=== PATIENT | male | born 1945 | race Caucasian/White ===

== ENCOUNTER 2024-05-14 10:00 | Outpatient (CLI) | payer MEDICARE, SELFPAY ==
[2024-05-14 10:46] LABS: Basophils Absolute Auto 0.01 K/mm3 (0.00-0.10); Basophils Percent Auto 0.2 % (0.0-1.0); Eosinophils Percent Auto 4.7 % (1.0-6.0); Hemoglobin 11.7 g/dL (12.4-15.3); Immature Granulocyte Absolute 0.02 K/mm3 (0.00-0.00); Immature Granulocyte Percent A 0.5 % (0.0-0.0); Immature Platelet Fraction Pct 4.2 % (1.0-7.0); Lymphocytes Absolute Auto 1.09 K/mm3 (1.10-4.50); Lymphocytes Percent Auto 25.8 % (18.0-42.0); Mean Corpuscular HGB Conc 34.4 g/dL (32-36); Mean Corpuscular Hemoglobin 31.5 pg (27.0-31.0); Mean Corpuscular Volume 91.4 fL (78.0-102.0); Mean Platelet Volume 10.4 fl (8.7-11.0); Monocytes Absolute Auto 0.59 K/mm3 (0.10-0.90); Monocytes Percent Auto 13.9 % (2.0-11.0); Neutrophils Absolute Auto 2.32 K/mm3 (1.70-7.20); Neutrophils Percent Auto 54.9 % (50.0-70.0); Platelet Count Result 75 K/mm3 (150-420); Red Blood Count 3.72 M/mm3 (4.70-6.10); Reticulocyte Hemoglobin Conten 34.9 pg (28.0-35.0); Reticulocyte Percent 1.54 % (0.50-1.50); Reticulocytes Absolute 0.06 M/mm3 (0.02-0.10); White Blood Count 4.2 K/mm3 (4.8-10.8)
[2024-05-14 10:59] LABS: Partial Thromboplastin Time 28.2 Sec (23.9-30.70)
[2024-05-14 11:25] LABS: Alanine Aminotransferase 59 U/L (16-63); Albumin Level 2.8 g/dL (3.4-5.0); Alkaline Phosphatase 126 U/L (46-116); Anion Gap 5 mmol/L (4-12); Aspartate Amino Transferase 52 U/L (15-37); Blood Urea Nitrogen 16 mg/dL (7-18); Calcium 8.5 mg/dL (8.5-10.1); Carbon Dioxide 34 mmol/L (21-32); Chloride 98 mmol/L (98-108); Estimated Glomerular Filt Rate > 60; Ferritin 89 ng/mL (26-388); Folic Acid 16.6 ng/mL (8.6->20); Glucose 192 mg/dL (70-99); Iron 70 ug/dL (65-175); Lactate Dehydrogenase 140 U/L (85-227); Osmolality Calculated 290 mOsm/kg (285-295); Percent Iron Saturation 26 % (12-57); Potassium 2.8 mmol/L (3.5-5.1); Prostate Specific Antigen < 0.1 ng/mL (< OR = 4.0); Sodium 137 mmol/L (136-145); Total Protein 6.6 g/dL (6.4-8.2); Vitamin B12 > 2000 pg/mL (193-986)
[2024-05-15 07:48] LABS: Fibrinogen 299 mg/dL (175-425)
[2024-05-16 12:08] LABS: Immunoglobulin A 481 mg/dL (70-320); Immunoglobulin G 1679 mg/dL (600-1540); Immunoglobulin M 114 mg/dL (50-300)
[2024-05-16 14:28] LABS: Erythropoietin (EPO) 27.5 mIU/mL (2.6-18.5)
[2024-05-16 16:09] LABS: Beta-2-Microglobulin 3.65 mg/L (< OR = 2.51)
[2024-05-17 02:59] LABS: Protein, Total 6.1 g/dL (6.1-8.1)
[2024-05-19 12:03] LABS: Albumin 2.8 g/dL (3.8-4.8); Alpha 1 Globulin 0.2 g/dL (0.2-0.3); Alpha 2 Globulin 0.6 g/dL (0.5-0.9); Beta 1 Globulin 0.4 g/dL (0.4-0.6); Gamma Globulin 1.6 g/dL (0.8-1.7)
[2024-05-20 14:09] LABS: Immunofixation, Serum Normal pattern.
== END 2024-05-14 10:01 | disposition home or self-care (01) ==
LOC: CHSLAB 10:08
PROVIDERS: PCP Hospitalist; Visit Provider Internal Medicine Hematology
DX: D61.818 Other pancytopenia (principal); E11.9 Type 2 diabetes mellitus without complications; I10 Essential (primary) hypertension; D69.6 Thrombocytopenia, unspecified; Z85.46 Personal history of malignant neoplasm of prostate
CPT/HCPCS: 36415; 80053; 82232; 82525; 82607; 82668; 82728; 82746; 82784; 83540; 83550; 83615; 83883; 84153; 84155; 84165; 84630; 85025; 85046; 85055; 85384; 85610; 85730; 86334

== ENCOUNTER 2024-07-02 00:48 | Day surgery (SDC) | payer MEDICARE, SELFPAY ==
[2024-07-01 13:23] VITALS: BMI 37.3
--- NOTE | ~2024-07-02 | BM_ITS ---
EXAMINATION: CCL bone marrow asp w bx diag DATE: 07/02/2024 09:37 INDICATION: Pancytopenia. TECHNIQUE: A time-out was performed to verify the patient's name, date of , and procedure to b e performed. The procedure including the risks, benefits, and alternatives was discussed with the pat ient. Risks discussed included bleeding and infection. The patient understood the risks and agreed to proceed. The skin overlying the left ilium was prepped and draped in usual sterile fashion. Anesth etic was administered with 1% lidocaine subcutaneously. 50 mcg fentanyl IV was given for pain control . An 11 gauge needle was inserted into the ilium with fluoroscopic guidance. Bone marrow was aspirat ed. An 8 gauge needle was then inserted into the ilium with fluoroscopic guidance. A core bone marrow biopsy was obtained. There were no immediate complications. Fluoroscopy exposure time was 0.1 minute s. The total number of images was 163. FINDINGS: Real-time fluoroscopy demonstrates a marker overlying the left posterior superior iliac spi ne. IMPRESSION: 1. Fluoro-guided bone marrow aspiration. 2. Fluoro-guided bone marrow core biopsy. Reviewed, dictated and finalized at location A.
[2024-07-02 07:30] VITALS: BP 128/66; PULSE 80; RESP 13; TEMP 36.4; O2SAT 100; BMI 37.3
[2024-07-02 08:03] LABS: Basophils Percent Auto 0.2 % (0.2-1.2); Eosinophils Absolute Auto 0.2 K/mm3 (0-0.3); Eosinophils Percent Auto 4.5 % (0-4.4); Hematocrit 37.6 % (42.0-52.0); Immature Granulocyte Absolute 0.01 K/mm3 (0.00-0.031); Immature Granulocyte Percent A 0.2 % (0-0.5); Immature Platelet Fraction Pct 5.3 % (0.9-11.2); Lymphocytes Absolute Auto 1.41 K/mm3 (0.9-3.2); Lymphocytes Percent Auto 30.1 % (18.3-44.2); Mean Corpuscular HGB Conc 34.6 g/dl (32-36); Mean Corpuscular Volume 92.6 fl (80-100); Mean Platelet Volume 11.7 fl (7.4-10.4); Monocytes Absolute Auto 0.7 K/mm3 (0.1-0.6); Monocytes Percent Auto 14.5 % (2.6-8.5); Neutrophils Absolute Auto 2.4 K/mm3 (1.3-6.7); Neutrophils Percent Auto 50.5 % (45.5-73.1); Platelet Count Result 89 k/mm3 (150-375); Red Blood Count 4.06 M/mm3 (4.6-6.20); Red Cell Distribution Width 16.2 % (11.5-14.5); White Blood Count 4.7 K/mm3 (4.5-10.0)
[2024-07-02 08:15] LABS: INR 1.1; Prothrombin Time 14.7 Seconds (11.1-14.7)
--- NOTE | 2024-07-02 08:55 | WPDMODSED ---
Moderate Sedation Note-Pt Data Patient Data Diagnosis: Pancytopenia. Present Complaint: Pancytopenia. Procedure to be performed/Plan: Fluoro-guided bone marrow biopsy of ilium. Allergies Allergy/AdvReac Type Severity Reaction Status Date / Time Contrast Media AdvReac Unknown Nausea and Uncoded 07/01/24 13:44 Vomiting Home Medications Medication Instructions Recorded Confirmed Type aspirin 81 mg tablet 81 mg PO DAILY 07/01/24 07/01/24 History atorvastatin 40 mg tablet 40 mg PO 07/01/24 History carvedilol 6.25 mg tablet 6.25 mg PO BID 07/01/24 07/01/24 History chlorthalidone 50 mg tablet 50 mg PO DAILY 07/01/24 07/01/24 History dulaglutide 1.5 mg/0.5 mL 1.5 mg subcut WEEKLY 07/01/24 07/01/24 History subcutaneous pen injector (Trulicity) furosemide 40 mg tablet 40 mg PO DAILY 07/01/24 07/01/24 History isosorbide mononitrate 60 mg 60 mg PO DAILY 07/01/24 07/01/24 History tablet,extended release 24 hr mecobalamin (vitamin B12) 500 mcg 500 mcg PO DAILY 07/01/24 07/01/24 History chewable tablet metformin 500 mg tablet 2,000 mg PO HS 07/01/24 07/01/24 History oxybutynin chloride 5 mg tablet 5 mg PO BID 07/01/24 07/01/24 History potassium chloride 20 mEq 20 meq PO DAILY 07/01/24 07/01/24 History tablet,extended release(part/cryst) Sedation/Anesthesia: No previous sedation/anesthesia problems (including family history). [facility] Past Medical History Medical History (Updated 07/02/24 @ 08:57 by Steven Frazier MD) Myocardial infarction Social History Social History Smoking status: Never smoker Second hand tobacco smoke exposure: Yes Alcohol intake: former Alcohol use details: none since 2009 Substance use: never Living arrangements: with family Spiritual care concerns: No Mod Sed Physical Exam Physical Exam Pre Procedural Exam: Normal: Lungs, Heart Rate, Heart Rhythm and Abdomen and Variation: Appearance (Scalp surgical change.) Hours since solid foods: 11 Hours since liquid intake: 11 Mallampati Classification: class II Internal Medicine - PN: Obj Da Vital Signs Vital Signs: Vital Signs - 24 hr 07/02/24 07:30 Temperature 36.4 C Pulse Rate 80 Respiratory Rate 13 Blood Pressure 128/66 Pulse Oximetry 100 Oxygen Delivery Room Air Intake/Output Intake/Output: Intake & Output 06/29/24 06/30/24 07/01/24 07/02/24 23:59 23:59 23:59 23:59 Intake Total 0 Output Total 0 Balance 0 Labs 07/02/24 07:54 Labs: Laboratory Results - last 24 hr 07/02/24 07:54 WBC 4.7 RBC 4.06 L Hgb 13.0 L Hct 37.6 L MCV 92.6 MCH 32.0 MCHC 34.6 RDW 16.2 H Plt Count 89 L MPV 11.7 H Immature Gran % (Auto) 0.2 Neut % (Auto) 50.5 Lymph % (Auto) 30.1 [place] % (Auto) 14.5 H Eos % (Auto) 4.5 H Baso % (Auto) 0.2 Lymph # (Auto) 1.41 [place] # (Auto) 0.7 H Eos # (Auto) 0.2 Baso # (Auto) 0.0 Abs Immat Gran (auto) 0.01 Absolute Neuts (auto) 2.4 Absolute Nucleated RBC 0.000 Nucleated RBC % 0.0 % Immature Plt Fraction 5.3 PT 14.7 INR 1.1 ASA Classification/Sedation ASA Classification/Sedation ASA Class: II Emergent: No Risks: Risks, benefits and alternatives explained and patient/family accepted plan for sedation. Patient re-evaluated immediately prior to sedation.
[2024-07-02 09:35] VITALS: BP 135/65; PULSE 80; RESP 12; TEMP 37.1; O2SAT 100
[2024-07-02 09:45] VITALS: BP 140/70; PULSE 80; RESP 18; O2SAT 100
[2024-07-02 10:00] VITALS: BP 109/75; PULSE 78; RESP 21; O2SAT 100
[2024-07-02 10:15] VITALS: BP 110/64; PULSE 78; RESP 16; O2SAT 100
[2024-07-02 10:30] VITALS: BP 123/55; PULSE 72; RESP 24; O2SAT 100
== END 2024-07-02 10:45 | disposition home or self-care (01) ==
PROVIDERS: Radiology Diagnostic Radiology; PCP Hospitalist; Referring Provider Internal Medicine Hematology; Visit Provider Radiology Diagnostic Radiology
DX: D61.818 Other pancytopenia (principal); D69.6 Thrombocytopenia, unspecified; D64.9 Anemia, unspecified; D75.89 Other specified diseases of blood and blood-forming organs; I25.2 Old myocardial infarction; Z79.82 Long term (current) use of aspirin; Z79.85 Long-term (current) use of injectable non-insulin antidiabetic drugs; Z79.84 Long term (current) use of oral hypoglycemic drugs
CPT/HCPCS: 36415; 38222; 85025; 85055; 85610; 88305; 88311; 88313; J1642; J3010

== ENCOUNTER 2024-09-17 10:11 | Outpatient (CLI) | payer MEDICARE, SELFPAY ==
[2024-09-17 10:28] LABS: Hematocrit 32.9 % (37.0-46.0); Hemoglobin 11.5 g/dL (12.4-15.3); Immature Platelet Fraction Pct 3.8 % (1.0-7.0); Mean Corpuscular Hemoglobin 31.5 pg (27.0-31.0); Mean Corpuscular Volume 90.1 fL (78.0-102.0); Mean Platelet Volume 10.9 fl (8.7-11.0); Platelet Count Result 78 K/mm3 (150-420); Red Blood Count 3.65 M/mm3 (4.70-6.10); Red Cell Distribution Width 15.8 % (11.6-14.4); White Blood Count 3.3 K/mm3 (4.8-10.8)
[2024-09-17 11:00] LABS: Band Neutrophils Percent 0 % (0-6); Basophils Absolute Manual 0.06 K/mm3 (0-0.1); Basophils Percent Manual 2 % (0-1); Eosinophils Absolute Manual 0.06 K/mm3 (0.02-0.50); Eosinophils Percent Manual 2 % (1-6); Lymphocytes Absolute Manual 1.41 K/mm3 (1.1-4.5); Lymphocytes Percent Manual 43 % (18-44); Monocytes Absolute Manual 0.36 K/mm3 (0.1-0.90); Monocytes Percent Manual 11 % (3-9); Neutrophils Absolute Manual 1.38 K/mm3 (1.3-6.7); Neutrophils Percent Manual 42 % (46-73); Total Cells Counted 100
[2024-09-17 11:01] LABS: Platelet Estimate Decreased (Adequate)
== END 2024-09-17 10:12 | disposition home or self-care (01) ==
PROVIDERS: PCP Hospitalist; Visit Provider Internal Medicine Hematology
DX: D61.818 Other pancytopenia (principal)
CPT/HCPCS: 36415; 85025; 85055

== ENCOUNTER 2025-05-25 12:07 | Emergency (ER) | payer MEDICARE, BC, SELFPAY ==
[2025-05-25] VITALS (34 sets, daily range): BP systolic 101–135; BP diastolic 50–70; PULSE 67–79; RESP 12–20; TEMP 36.6; O2SAT 95–100
--- NOTE | 2025-05-25 | CONSULT_PTH ---
PATIENT: Clyde Gibson [facility][id number] AGE/SX: 79/M ROOM: RE05/25/[address]: Fausto Zimmerman MD : 1945 BED: DIS: 05/25/2025 SPEC #: [id number] RECD: 05/25/25 13:24 STATUS: MARILYN REQ #: [id number] NIK: 05/25/25 00:[address]: Fausto Zimmerman DEPT: [facility] Consult RECD BY: Jeanine Kuhn MLT, ([facility]) Tissues: A - Peripheral Smear Procedures: Hematology Consult
--- NOTE | ~2025-05-25 | CT_ITS ---
CT brain wo con Ordering provider: Fausto Zimmerman MD History: 79 years Male with . TIA . Comparison: None. Technique: CT of the head without contrast. Radiation reduction technique utilized. The dose-length product was 832.33 mGy-cm. FINDINGS: BRAIN PARENCHYMA AND CSF SPACES: Moderate leukoaraiosis and diffuse cortical atrophy. Moderate athero matous disease. Widening of the spaces around the brain is seen in the frontal parietal area which ma y indicate CSF hygroma. No midline shift, mass effect or hemorrhage. The brain parenchyma and CSF sp aces are otherwise normal. VISUALIZED PARANASAL SINUSES: Well aerated. MASTOIDS: Well aerated. BONES: The bones appear intact. SOFT TISSUES: Visualized nasopharynx is normal. Superficial soft tissues are normal. IMPRESSION: No acute intracranial findings. Reviewed, dictated and finalized at location A.
--- NOTE | ~2025-05-25 | XR_ITS ---
XR chest 1V portable Ordering provider: Fausto Zimmerman MD History: 79 years Male with . dizziness . Comparison: None. FINDINGS: MEDIASTINUM: The cardiac silhouette is not enlarged. Right bipolar pacemaker. LUNGS: No infiltrates, effusions or pneumothorax. OTHER: No free air under the diaphragm. IMPRESSION: No acute cardiopulmonary pathology. Reviewed, dictated and finalized at location A.
--- OUTSIDE RECORDS SUMMARY | 2025-05-25 12:09 | XMS_ITS | Encounter Summary ---
Author Organization [facility] Address [address] [place] [address] Care Team Providers Care Precision Machine Operator Name Role Phone Hakan Mccormick MD Primary Care Provider [phone] Encounter Details Date Type Department Care Team (Late st Contact Info) Description 12/31/2019 Lab Requisition [facility] DermPath Lab [address] [facility] [place] [id number] Remedios Hancock MD [address] [facility] 3 [place] [address] Social History Tobacco Use Types Packs/Day Years Used Date Smoking Tobacco: Never Smokeless Tobacco: Never Alcohol Use Standard Drinks/Week Comments No 0 (1 standard drink = 0.6 oz pur e alcohol) Sex and Gender Information Value Date Recorded Sex Assigned at Not on file Legal Sex Male 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 PM 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 Gender Identity Not on file Sexual Orientation Not on file documented as of this encounter Plan of Treatment Not on file documented as of this encounter Procedures Procedure Name Priority Date/Time Associated Diagnosis Comments DERMATOPATHOLOGY Routine 12/30/2019 12:0 0 AM STEAM TRAP MAN documented in this encounter Results * DERMATOPATHOLOGY (12/30/2019 12:00 AM STEAM TRAP MAN) Case Report Dermatopathology Report Case: [id number] Authorizing Provider: Remedios Hancock MD Collected: 12/30/2019 12:00 AM Ordering Location: [facility] DermPath Lab Received: 12/31/2019 12:13 PM Pathologist: Matthew Damon MD Specimen: Skin, right forearm 0 3:57 PM [facility] DERMATOPATHOLOGY LABORATORY Final Diagnosis Specimen A. 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 0 3:57 PM [facility] DERMATOPATHOLOGY LABORATORY Gross Description Specimen A: Received is one formalin filled container labeled with the patient's name and designated right forearm. The specimen consists of a non-oriented ellipse of skin measuring 62u03n6 mm. The epidermal surface is unremarkable. The margin is inked green. The 12 o'clock and 6 o'clock tips are submitted in cassette 1. The remainder of the ellipse is serially sectioned and submitted in cassette 2-4. Jar 0. 0 3:57 PM [facility] DERMATOPATHOLOGY LABORATORY Microscopic Description Specimen A. SKIN, right forearm: There is a cellular, dermal based tumor comprised of spindle, oval, and polygonal cells with pleomorphic and polymorphic nuclei. Multinucleated giant cells and mitotic figures are present. This lesion is not present at the margin of the specimen. There are fibroblasts and collagen bundles oriented parallel to the skin surface with elongated blood vessels, some of which are oriented perpendicular to the skin surface. 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 0 3:57 PM [facility] DERMATOPATHOLOGY LABORATORY Disclaimer An external and internal positive and negative controls are appropriate for the histochemical, immunohistochemical and immunofluorescence stain(s) in this case (if any), except where stated explicitly. The performance characteristics of the stain(s) cited in this report were developed and its performance characteristic determined by the Dermatopathology Laboratory at [facility], directed by Dr. Bridget Damon. These tests need not be, and therefore are not, approved by the [place] Food and Drug Administration. The tests are used for clinical purposes. Billing Codes Specimen Charges Stain Charges 26415 1 0 3:57 PM STEAM TRAP MAN DERMATOPATHOLOGY LABORATORY Embedded Images 0 3:57 PM STEAM TRAP MAN DERMATOPATHOLOGY LABORATORY Pathology/Cytolog y TISSUE SPECIMEN FROM SKIN / Unknown 12/30/2019 12/31/2019 12:13 PM STEAM TRAP MAN Remedios Hancock MD LAB - PATHOLOGY/CYTOLOGY OR DERABLES Final Result DERMATOPATHOLOGY LABORATORY [facility] - Department of Dermatology [address] [place] [address], 5th Floor Lab [address] [phone] documented in this encounter Visit Diagnoses Not on filedocumented in this encounter Care Teams Precision Machine Operator Relationship Specialty Start Date End Date Hakan Mccormick MD PCP - General 04/24/11 documented as of this encounter
--- OUTSIDE RECORDS SUMMARY | 2025-05-25 12:09 | XMS_ITS | Encounter Summary ---
Author Organization [facility] Address [address] [facility] [address] Care Team Providers Care Special Effects Makeup Artist Name Role Phone Hakan Mccormick MD Primary Care Provider [phone] Encounter Details Date Type Department Care Team (Late st Contact Info) Description 10/19/2020 Lab Requisition [facility] DermPath Lab [address] [facility] [place] [phone] Gabriela Saunders MD [address] [facility] 3 [place] [address] Social History Tobacco Use Types Packs/Day Years Used Date Smoking Tobacco: Never Smokeless Tobacco: Never Alcohol Use Standard Drinks/Week Comments No 0 (1 standard drink = 0.6 oz pur e alcohol) Sex and Gender Information Value Date Recorded Sex Assigned at Not on file 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 Gender Identity Not on file Sexual Orientation Not on file documented as of this encounter Plan of Treatment Not on file documented as of this encounter Procedures Procedure Name Priority Date/Time Associated Diagnosis Comments DERMATOPATHOLOGY Routine 10/18/2020 12:0 0 AM GLASS MELT OPERATOR documented in this encounter Results * DERMATOPATHOLOGY (10/18/2020 12:00 AM GLASS MELT OPERATOR) Case Report Dermatopathology Report Case: [id number] Authorizing Provider: Gabriela Saunders MD Collected: 10/18/2020 12:00 AM Ordering Location: [facility] DermPath Lab Received: 10/19/2020 09:09 AM Pathologist: Barbara Ford MD Specimens: A) - Skin, right jawline B) - Skin, left FA C) - Skin, left corner of mouth 0 12:23 PM [facility] DERMATOPATHOLOGY LABORATORY Final Diagnosis Specimen A. 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 SKIN, left FA: BASAL CELL CARCINOMA, NODULAR TYPE (C44.619) Specimen C. SKIN, left corner of mouth: BASAL CELL CARCINOMA, NODULAR TYPE (C44.319) 0 12:23 PM [facility] DERMATOPATHOLOGY LABORATORY at 1223 GLASS MELT OPERATOR Clinical History A: R/O SCC. B: BCC vs SCC. C: R/O BCC. 0 12:23 PM [facility] DERMATOPATHOLOGY LABORATORY Gross Description Specimen A: Received is one formalin filled container labeled with the patient's name and designated right jawline. The specimen consists of a shave biopsy measuring [id number]. Jar 0. Specimen B: Received is one formalin filled container labeled with the patient's name and designated left FA. The specimen consists of a shave biopsy measuring [id number]. Jar 0. Specimen C: Received is one formalin filled container labeled with the patient's name and designated left corner of mouth. The specimen consists of a shave biopsy measuring [id number]. Jar 0. 0 12:23 PM [facility] DERMATOPATHOLOGY LABORATORY Microscopic Description Specimen A. SKIN, right jawline: Arising in the epidermis and extending into the dermis there are irregularly shaped aggregates of keratinocytes showing evidence of premature cornification. Specimen B. SKIN, left FA: Within the dermis there are aggregates of basaloid cells with a high nuclear to cytoplasmic ratio and peripheral palisading. Specimen C. SKIN, left corner of mouth: Within the dermis there are aggregates of basaloid cells with a high nuclear to cytoplasmic ratio and peripheral palisading. 0 12:23 PM [facility] DERMATOPATHOLOGY LABORATORY Disclaimer An external and internal positive and negative controls are appropriate for the histochemical, immunohistochemical and immunofluorescence stain(s) in this case (if any), except where stated explicitly. The performance characteristics of the stain(s) cited in this report were developed and its performance characteristic determined by the Dermatopathology Laboratory at [facility], directed by Dr. Bridget Damon. These tests need not be, and therefore are not, approved by the [place] Food and Drug Administration. The tests are used for clinical purposes. Billing Codes Specimen Charges Stain Charges 55955 74076 28037 1 1 1 0 12:23 PM GLASS MELT OPERATOR DERMATOPATHOLOGY LABORATORY Embedded Images 0 12:23 PM GLASS MELT OPERATOR DERMATOPATHOLOGY LABORATORY Pathology/Cytology TISSUE SPECIMEN FROM SKIN / Unknown 10/18/2020 10/19/2020 9:09 AM GLASS MELT OPERATOR Miscellaneous samples (specimen) TISSUE SPECIMEN FROM SKIN / Unknown 10/18/2020 10/19/2020 9:09 AM GLASS MELT OPERATOR Miscellaneous samples (specimen) TISSUE SPECIMEN FROM SKIN / Unknown 10/18/2020 10/19/2020 9:09 AM GLASS MELT OPERATOR Gabriela Saunders MD LAB - PATHOLOGY/CYTOLOGY ORD ERABLES Final Result DERMATOPATHOLOGY LABORATORY [facility] - Department of Dermatology [facility] [address] [place] [address], [address] [phone] documented in this encounter Visit Diagnoses Not on filedocumented in this encounter Care Teams Special Effects Makeup Artist Relationship Specialty Start Date End Date Hakan Mccormick MD PCP - General 04/24/11 documented as of this encounter
--- OUTSIDE RECORDS SUMMARY | 2025-05-25 12:10 | XMS_ITS | Encounter Summary ---
Author Organization [facility] Address [address] [facility] [place] [address] Care Team Providers Care Application Security Specialist Name Role Phone Hakan Mccormick MD Primary Care Provider [phone] Encounter Details Date Type Department Care Team (Late st Contact Info) Description 08/16/2023 Lab Requisition [facility] - DermPath Lab [address] [facility] [place] [address] Gabriela Saunders MD [address] [facility] 3 [place] [address] Social History Tobacco Use Types Packs/Day Years Used Date Smoking Tobacco: Never Smokeless Tobacco: Never Alcohol Use Standard Drinks/Week Comments No 0 (1 standard drink = 0.6 oz pur e alcohol) Sex and Gender Information Value Date Recorded Sex Assigned at Not on file 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 Gender Identity Not on file Sexual Orientation Not on file documented as of this encounter Plan of Treatment Not on file documented as of this encounter Procedures Procedure Name Priority Date/Time Associated Diagnosis Comments DERMATOPATHOLOGY Routine 08/16/2023 3:33 AM CDT documented in this encounter Results * DERMATOPATHOLOGY (08/16/2023 3:33 AM CDT) Case Report Dermatopathology Report Case: [id number] Authorizing Provider: Gabriela Saunders MD Collected: 08/16/2023 03:33 AM Ordering Location: [facility] DermPath Lab Received: 08/20/2023 09:29 AM Pathologist: Lili Ellsworth MD Specimen: Skin, right med FA 3 6:07 PM T DERMATOPATHOLOGY LABORATORY Final Diagnosis Specimen A. 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 The 12 to 6 o'clock margin is inked green. The 6 o'clock to 12 o'clock margin is inked black. The 12 o'clock tip is submitted in cassette 1. The 6 o'clock tip is submitted in cassette 2. The remainder of the ellipse is serially sectioned and submitted in cassettes 3 - 4. Jar 0. 6:07 PM [facility] DERMATOPATHOLOGY LABORATORY Microscopic Description Specimen A. SKIN, right med FA: Sections show a focal cup-shaped lesion with central hyperkeratosis with elements of parakeratosis. The epithelial cells making up the goodwin of the cup show abundant eosinophilic cytoplasm. There is immaturity of the keratinocytes in the outermost layers of this epithelium. This lesion is not present at the margin of the specimen. There are fibroblasts and collagen bundles oriented parallel to the skin surface with elongated blood vessels, some of which are oriented perpendicular to the skin surface. 6:07 PM T DERMATOPATHOLOGY LABORATORY Disclaimer An external and internal positive and negative controls are appropriate for the histochemical, immunohistochemical and immunofluorescence stain(s) in this case (if any), except where stated explicitly. The performance characteristics of the stain(s) cited in this report were developed and its performance characteristic determined by the Dermatopathology Laboratory at [facility], directed by Dr. Bridget Damon. These tests need not be, and therefore are not, approved by the [place] Food and Drug Administration. The tests are used for clinical purposes. Billing Codes Specimen Charges Stain Charges 34773 1 3 6:07 PM CDT DERMATOPATHOLOGY LABORATORY Embedded Images 3 6:07 PM CDT DERMATOPATHOLOGY LABORATORY Pathology/Cytolo gy TISSUE SPECIMEN FROM SKIN / Unknown 08/16/2023 3:33 AM CDT 08/20/2023 9:29 AM CDT us Gabriela Saunders MD LAB - PATHOLOGY/CYTOLOGY ORD ERABLES Final Result DERMATOPATHOLOGY LABORATORY [facility] - Department of Dermatology [facility] Medicine [address] [place] [address], [address]rd Floor [address] [phone] documented in this encounter Visit Diagnoses Not on filedocumented in this encounter Care Teams Application Security Specialist Relationship Specialty Start Date End Date Hakan Mccormick MD PCP - General 04/24/11 documented as of this encounter
--- OUTSIDE RECORDS SUMMARY | 2025-05-25 12:10 | XMS_ITS | Clinical Summary ---
Author Organization [facility] Address [address] [place] [address] Care Team Providers Care Mineral Engineer Name Role Phone Hakan Mccormick MD Primary Care Provider [phone] Source Comments [facility],non-owned Affiliates and Associated Physician Practices is amultiple site organization consisting of ambulatory clinics and hospital sitesin [place], [place], [place] and [place]. This disclosure is being madepursuant to the Care Everywhere program and may not contain all information available regarding this patient. Last updated 18.[facility] Allergies Active Allergy Reactions Criticality Noted Date Comments Contrast-Iodinated Agents For Ct/Other Nausea and/or Vomiting,Other High 05/01/2011 Vomiting and chest pain, Vomiting and chest pain, Vomiting and chest pain Medications * Be aware that medications may not be up to date on this document. Alwaysverify current medications with the patient. fluorouracil (EFUDEX) 5 % cream 4 03/29/2017 Active dulaglutide (TRULICITY) 0.75 MG/0.5ML injection 03/24/2017 Active oxybutynin (DITROPAN) 5 MG tablet Take 5 mg by mouth. 04/03/2017 Active chlorthalidone (HYGROTON) 50 MG tablet Take 50 mg by mouth q48h. 04/03/2017 Active metFORMIN (GLUCOPHAGE) 500 MG tablet Take 2,000 mg by mouth. 04/03/2017 Active ALPRAZolam (XANAX) 0.25 MG tablet Take by mouth. 04/03/2017 Active Active Problems Problem Noted Date Diagnosed Date Personal history of other malignant neoplasm of skin 06/16/2011 Family History Medical History Relation Name Comments Cancer Father CVA Maternal Grandmother Allergy (Severe) Neg Hx Cancer - Skin, Melanoma Neg Hx Cancer - Skin, Non Melanoma Neg Hx Eczema Neg Hx Hemophilia Neg Hx Psoriasis Neg Hx Rashes/Skin Problems Neg Hx Relation Name Status Comments Father Maternal Grandmother Social History Tobacco Use Types Packs/Day Years Used Date Smoking Tobacco: Never Smokeless Tobacco: Never Alcohol Use Standard Drinks/Week Comments No 0 (1 standard drink = 0.6 oz pur e alcohol) Sex and Gender Information Value Date Recorded Sex Assigned at Not on file 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 Gender Identity Not on file Sexual Orientation Not on file Last Filed Vital Signs Vital Sign Reading Time Taken Comments Blood Pressure 112/68 06/19/2017 12:32 PM CDT Pulse 72 06/19/2017 12:32 PM CDT Temperature - - Respiratory Rate - - Oxygen Saturation 89% 06/19/2017 12:32 PM CDT Inhaled Oxygen Concentration - - Weight 152.9 kg (337 lb) 06/19/2017 7:19 AM CDT Height 185.4 cm (6' 1) 06/19/2017 7:19 AM CDT Body Mass Index 44.46 06/19/2017 7:19 AM CDT Plan of Treatment Health Maintenance Due Date Last Done Comments MEDICARE AWV 12 MONTHS 1945 DTAP/TDAP/TD VACCINES (1 - Tdap) 1963 PNEUMOCOCCAL VACCINE 50+ (1 of 1 - PCV) 1994 ZOSTER VACCINE (1 of 2) 1994 Respiratory Syncytial Virus (RSV) Vaccine Pt: or over 60 yrs (1 - 1-dose 75+ series) 2019 COVID-19 VACCINE ( - 2023-2 5 season) 2024 DEPRESSION SCREENING 11/12/2024 INFLUENZA VACCINE (#1) 2025 HEPATITIS B VACCINE Aged Out No longe r eligible based on patient's age to complete this topic HIB VACCINE Aged Out No longer eligi ble based on patient's age to complete this topic HPV VACCINE Aged Out No longer eligi ble based on patient's age to complete this topic MENINGOCOCCAL (Group B) VACC INE SHARED DECISION-MAKING Aged Out No longer eligibl e based on patient's age to complete this topic MENINGOCOCCAL GROUPS A/C/Y/W VACCINE Aged Out No longer eligible b ased on patient's age to complete this topic Insurance [facility] Care Teams Mineral Engineer Relationship Specialty Start Date End Date Hakan Mccormick MD PCP - General 04/24/11
--- OUTSIDE RECORDS SUMMARY | 2025-05-25 12:10 | XMS_ITS | Continuity of Care Document ---
Author Organization [facility] Address [address] [facility] damien Verdin [address] [place] [phone] Phone Care Team Providers Care Slitter Operator Name Role Phone Sandro Jones MD Unavailable [...] and evening meals 500 MG - Active isosorbide mononitrate ER 60 mg tablet,extended release 24 hr - Active carvedilol 6.25 mg tablet - Active Lipitor 20 mg tablet - Active lisinopril 10 mg tablet - Active aspirin 81 mg tablet,delayed release - Active Procedures Procedure Date No Charge [...] Diagnoses Date Provider Providers Copied on Encounter [facility], [address] [place] [address] [address], [place], [place], [address], [place] tel:[phone] SEC [place] Professional Post-Op (chief complaint) Surgery follow-up examination 7 Robert Jo. [address], [place], [place], [address], [place]. tel:[phone] [facility], [address] [place] [address] [address], [place], [place], [id number], [place] tel:[phone] [place] Laser procedure (chief complaint) Other secondary cataract, right eye 7 Robert Jo. [address], [place], [place], [address], [place]. tel:[phone] Office/outpa tient Visit, Est [facility], [address] [place] [address] [address], [place], [place], [address], [place] tel:[phone] [place] Professional evaluation (chief complaint) No Information 7 Robert Jo. [address], [place], [place], [address], [place]. tel:[phone] [facility], [address] [place] [address] [address], [place], [place], [address], [place] tel:[phone] [place] Professional No Information 7 Yudith Edwards. [address], [place], [place], [address], [place]. tel:[phone] Office/outpa tient Visit, Est [facility] [place], [address] [place] [address] [address], [place], [place], [address], [place] [phone] [place] Professional Difficulty reading (chief complaint) No Information Julia Goldsmith. [address] [facility], [address], [place], [address], [place]. tel:[phone] Referring Provider: Lien Spann, [address], [address]. tel:[phone] [facility], [address] [place] [address] [address], [place], [place], [address], [place] tel:[phone] [place] F/u exam, postop (chief complaint) No Information Wankayan Edwards. [address] [facility], [facility] [place], [address], [place]. tel:[phone] Referring Provider: Lien Spann, [address], [address]. tel:[phone] [place] [address], [address] [place] [address] [address], [place], [place], [address], [place] [phone] [place] F/u exam, postop (chief complaint) No Information 4 Yudith Edwards. [address] [facility], [address], [place], [place], [address], [place]. tel:[phone] Referring Provider: Lien Spann, [address], [address]. tel:[phone] [facility], [address] [place] [address] [address], [place], [place], [address], [place] tel:[phone] [facility] No Information 4 Julia Goldsmith. [address], [place], [address], [place]. tel:[phone] Referring Provider: Lien Spann, [address], [facility]. [phone] [facility], [address] [place] [address] [address], [place], [place], [address], tel:[phone] SEC [facility] No Information 4 Julia Goldsmith. [address], [place], [address], [place]. tel:[phone] Referring Provider: Lien Spann, [address], [facility]. tel:[phone] [facility], [address] [place] [address] [address], [place], [place], [address], [place] tel:[phone] SEC [facility] Professional F/u exam, postop (chief complaint) No Information 4 Yudith Edwards. [address] [place], [place], [address], [place]. tel:[phone] Referring Provider: Lien Spann, [address], [facility]. tel:[phone] [facility], [address] [place] [address] [address], [place], [place], [address], [place] tel:[phone] SEC [facility] Professional No Information 4 Yudith Edwards. [address] [facility] [place], [address], [place]. tel:[phone] Referring Provider: Jerry Haynes, [address] [facility] [place], [address]. tel:[phone] [facility], [address] [place], [place] [address]st [address], [place], [place], [address], [phone] [facility] [place] No Information 4 Julia Goldsmith. [address], [address], [place], [facility], . tel:[phone] Referring Provider: Lien Spann, [facility] [address], [facility]. tel:[phone] [facility], [address] [place] [address] [address], [place], [place], [address], [phone] SEC Tereso Aguiar No Information 4 Julia Goldsmith. [address] [facility], [address] [place] [address], [facility], . tel:[phone] Referring Provider: Lien Spann, [address], [facility]. tel:[phone] Office/outpa tient Visit, [facility], [address], [place], [place], [address], [phone] SEC [place] Professional No Information 4 Julia Goldsmith. [address], [address] [place] [address], [facility], . tel:[phone] Referring Provider: Lien Spann, [address], [facility]. tel:[phone] Family History Family Member Type Diagnosis Age At Onset Mother Problem (finding) diabetes melli tus in first degree relative Father Problem (finding) glaucoma Payers Payer name Insurance type Covered constitution party ID Authorpoa ticonstanza(s) No Information Social History [...] 1 month Yag Cap PO O D Follow up - 1 month Yag PC PO OS + Yag PC OD Impression/Plan - Ea rly Dry ARMD OU:- [...] PC PO OS + Yag PC OD. Other secondary brynn ract, left eye - Educational material given Related to Other secondary cataract, left eye Pseudophakia - Educa tional material given Related [...]
--- OUTSIDE RECORDS SUMMARY | 2025-05-25 12:10 | XMS_ITS | Encounter Summary ---
Author Organization [facility] Address [address] [facility] [place] [address] Care Team Providers Care Public Health Sanitarian Technician Name Role Phone Hakan Mccormick MD Primary Care Provider [phone] Encounter Details Date Type Department Care Team (Late st Contact Info) Description 03/24/2024 Lab Requisition [facility] - DermPath Lab [address] [facility], [place] [address] Gabriela Saunders MD [address] [facility] [address] [place] [address] Social History Tobacco Use Types Packs/Day Years Used Date Smoking Tobacco: Never Smokeless Tobacco: Never Alcohol Use Standard Drinks/Week Comments No 0 (1 standard drink = 0.6 oz pur e alcohol) Sex and Gender Information Value Date Recorded Sex Assigned at Not on file 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 Gender Identity Not on file Sexual Orientation Not on file documented as of this encounter Plan of Treatment Not on file documented as of this encounter Procedures Procedure Name Priority Date/Time Associated Diagnosis Comments DERMATOPATHOLOGY Routine 03/24/2024 11:5 6 AM CDT documented in this encounter Results * DERMATOPATHOLOGY (03/24/2024 11:56 AM CDT) Case Report Dermatopathology Report Case: [id number] Authorizing Provider: Gabriela Saunders MD Collected: 03/24/2024 11:56 AM Ordering Location: [facility] - Received: 03/25/2024 08:24 AM DermPath Lab Pathologist: Lili Ellsworth MD Specimens: A) - Skin, left crown B) - Skin, left crown post 4 5:15 PM CDT DERMATOPATHOLOGY LABORATORY Final Diagnosis Specimen A. 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 SKIN, left crown post: SQUAMOUS CELL CARCINOMA, ACANTHOLYTIC TYPE (C44.42) 4 5:15 PM CDT DERMATOPATHOLOGY LABORATORY at 1715 CDT Clinical History A-B: r/o SCC 4 5:15 PM CDT DERMATOPATHOLOGY LABORATORY Gross Description Specimen A: Received is one formalin filled container labeled with the patient's name and designated left crown. The specimen consists of a shave biopsy measuring 72t30b2 mm. Jar 0+. Specimen B: Received is one formalin filled container labeled with the patient's name and designated left crown post. The specimen consists of a shave biopsy measuring 90q18n7 mm. Jar 0. 4 5:15 PM CDT DERMATOPATHOLOGY LABORATORY Microscopic Description Specimen A. SKIN, left crown: The epidermis shows parakeratosis, full thickness disorderly maturation of keratinocytes, mitoses at different levels, and dyskeratotic cells. There is a column of marked compact hyperkeratosis. Specimen B. SKIN, left crown post: Sections show skin with irregularly shaped nests of keratinocytes with evidence of cornification. In some nests, there is loss of cohesion between the neoplastic cells, as well as individual dyskeratotic cells that lack intercellular bridges. 4 5:15 PM CDT DERMATOPATHOLOGY LABORATORY Disclaimer An external and internal positive and negative controls are appropriate for the histochemical, immunohistochemical and immunofluorescence stain(s) in this case (if any), except where stated explicitly. The performance characteristics of the stain(s) cited in this report were developed and its performance characteristic determined by the Dermatopathology Laboratory at [facility], directed by Dr. Bridget Damon. These tests need not be, and therefore are not, approved by the [place] Food and Drug Administration. The tests are used for clinical purposes. Billing Codes Specimen Charges Stain Charges 04356 91842 1 1 4 5:15 PM CDT DERMATOPATHOLOGY LABORATORY Embedded Images 4 5:15 PM CDT DERMATOPATHOLOGY LABORATORY Pathology/Cytology TISSUE SPECIMEN FROM SKIN / Unknown 03/24/2024 11:56 AM CDT 03/25/2024 8:24 AM CDT Miscellaneous samples (specimen) TISSUE SPECIMEN FROM SKIN / Unknown 03/24/2024 11:56 AM CDT 03/25/2024 8:24 AM CDT us Gabriela Saunders MD LAB - PATHOLOGY/CYTOLOGY ORD ERABLES Final Result DERMATOPATHOLOGY LABORATORY [facility] - Department of Dermatology [facility] Medicine [address] [place] [address], [address] [phone] documented in this encounter Visit Diagnoses Not on filedocumented in this encounter Care Teams Public Health Sanitarian Technician Relationship Specialty Start Date End Date Hakan Mccormick MD PCP - General 04/24/11 documented as of this encounter
--- OUTSIDE RECORDS SUMMARY | 2025-05-25 12:10 | XMS_ITS | Encounter Summary ---
Author Organization [facility] Address [address] [facility] [place] [address] Care Team Providers Care Care Giver Name Role Phone Hakan Mccormick MD Primary Care Provider [phone] Encounter Details Date Type Department Care Team (Late st Contact Info) Description 07/03/2024 Lab Requisition [facility] - Pathology Lab [address] [place] [address] Sae Andrews MD [address] [address] Illness, unspecified Social History Tobacco Use Types Packs/Day Years Used Date Smoking Tobacco: Never Smokeless Tobacco: Never Alcohol Use Standard Drinks/Week Comments No 0 (1 standard drink = 0.6 oz pur e alcohol) Sex and Gender Information Value Date Recorded Sex Assigned at Not on file 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 Gender Identity Not on file Sexual Orientation Not on file documented as of this encounter Plan of Treatment Not on file documented as of this encounter Procedures Procedure Name Priority Date/Time Associated Diagnosis Comments BONE MARROW BIOPSY (STL) Routine 07/02/2024 9:21 AM CDT Illness, unspecified documented in this encounter Results * BONE MARROW BIOPSY (STL) (07/02/2024 9:21 AM CDT) Case Report Bone Marrow Patholog y Report Case: [id number] Authorizing Provider: Sae Andrews Collected: 07/02/2024 09:21 AM MD Flako Ordering Location: [facility] - Received: 07/03/2024 01:16 PM Pathology Lab Pathologist: Noemi Alfonso MD Specimens: A) - Bone Marrow B) - Bone Marrow 07/03/2024 2:27 PM [facility] Final Diagnosis Bone marrow, aspirate, clot section, and core biopsy: - Normocellular marrow with maturing trilineage hematopoiesis and mild dysgranulopoiesis - Decreased storage iron - No evidence of lymphoma or high-grade myeloid neoplasm - See description Peripheral blood smear: - Normochromic, normocytic anemia - Thrombocytopenia - See description 07/03/2024 2:27 PM [facility] at 1427 CDT AP Comment Overall, the bone marrow specimen is normocellular for age with maturing trilineage hematopoiesis and no evidence of lymphoma or a high-grade myeloid neoplasm. Mild dyspoiesis is noted in the myeloid lineage. While this may be indicative of a low-grade myelodysplastic syndrome, other causes of dysplastic morphology should first be considered (e.g., drug/toxin exposures, nutritional deficiencies, infections, etc.). Correlation with clinical findings and relevant cytogenetic/molecular testing is required. 07/03/2024 2:27 PM [facility] Peripheral Smear Description CBC Data: WBC - 4.7, Hgb - 13, MCV - 92.6, MCHC - 34.6, and Platelets - 89. Manual Differential Count (100 cells): 37% neutrophils, 42% lymphocytes, 15% monocytes, and 6% eosinophils. Leukocyte number: normal. Granulocyte morphology: normal. Lymphocyte morphology: normal. Erythrocyte number: decreased. Erythrocyte morphology: normochromic/normocyt ic. Anisopoikilocytosis: not significant. Polychromasia: not significant. Platelet number: decreased. Platelet morphology: normal. 07/03/2024 2:27 PM [facility] Bone Marrow Aspirate Differential count (200 cells): 1.5% blasts, 54.5% maturing myeloid precursors, 35% erythroid progenitors, 3% eosinophils, 3% lymphocytes, and 3% plasma cells. Specimen quality: adequate. Spicules: present. Trilineage Hematopoiesis: present. Myeloid:Erythroid ratio: 1.6:1. Myeloid Maturation: Mildly dyspoietic, with a subset showing hypogranular cytoplasm. Erythroid Maturation: No overt dyspoiesis. Megakaryocyte morphology: normal nuclear lobation. Storage iron (by special stain): focal. Sideroblastic iron (by special stain): decreased. No ring sideroblasts are seen. Control is appropriately reactive. 07/03/2024 2:27 PM [facility] Bone Marrow Core Biopsy and Clot Section Description Specimen quality: The decalcified bone marrow core biopsy is adequate for evaluation. Cellularity: normocellular, ~20-30%. Trilineage Hematopoiesis: present. Myeloid to Erythroid ratio: normal. Myeloid maturation and localization: normal. Erythroid maturation and localization: normal. Megakaryocyte number: normal. Megakaryocyte distribution: normal. Lymphoid aggregates: absent. Core biopsy iron (by special stain): decreased. Clot section marrow particles: present. Clot section morphology: similar to core biopsy. Clot section iron (by special stain): decreased. 07/03/2024 2:27 PM [facility] Flow Cytometry Summary Concurrent flow cytometry ([id number]) shows no evidence of a monoclonal B-cell population or increase in blasts. 07/03/2024 2:27 PM [facility] Clinical History 79 year old man with pancytopenia. 07/03/2024 2:27 PM [facility] Materials Received Received are 19 slide and 3 blocks labeled [id number] along with a copy of the outside pathology report. [place] [address] . All original materials are returned to the referring institution, along with a copy of our final report. 07/03/2024 2:27 PM [facility] Pathologist Location at [facility] 07/03/2024 2:27 PM [facility] Disclaimer The performance characteristics of all immunohistochemical and indirect immunofluorescence stains (if any) cited in this report were determined by the Histopathology Laboratory of [facility]. Some of these tests were developed by our own laboratory and have not been cleared or approved by the [place] Food and Drug Administration. The FDA does not require this test to go through premarket FDA review. These tests are used for clinical purposes. They should not be regarded as investigational or for research. This laboratory is certified under the Clinical Laboratory Improvement Amendments (CLIA) as qualified to perform high complexity clinical laboratory testing. This case has been personally reviewed and interpreted by the attending (teaching) pathologist. 07/03/2024 2:27 PM CDT [facility] Embedded Images 07/03/2024 2:27 PM CDT [facility] Pathology/Cytology BONE MARROW SPECIMEN / Unknown 07/02/2024 9:21 AM CDT 07/03/2024 1:16 PM CDT Miscellaneous samples (specimen) BONE MARROW SPECIMEN / Unknown 07/02/2024 9:21 AM CDT 07/03/2024 1:16 PM CDT Sae Andrews MD LAB - PATHOLOGY/CYT OLOGY ORDERABLES Final Result Performing Organization Address City/State/[facility] Co de Phone Number [facility] [address] [phone] documented in this encounter Visit Diagnoses Diagnosis Illness, unspecified documented in this encounter Care Teams Care Giver Relationship Specialty Start Date End Date Hakan Mccormick MD PCP - General 04/24/11 documented as of this encounter
--- OUTSIDE RECORDS SUMMARY | 2025-05-25 12:10 | XMS_ITS | Encounter Summary ---
Author Organization [facility] Address [address] [facility] [place] [address] Care Team Providers Care Clerk Of Court Name Role Phone Hakan Mccormick MD Primary Care Provider [phone] Encounter Details Date Type Department Care Team (Late st Contact Info) Description 11/26/2019 Lab Requisition [facility] DermPath Lab [address] [facility], [place] [id number] Gabriela Saunders MD [address] [facility] 3 [place] [address] Social History Tobacco Use Types Packs/Day Years Used Date Smoking Tobacco: Never Smokeless Tobacco: Never Alcohol Use Standard Drinks/Week Comments No 0 (1 standard drink = 0.6 oz pur e alcohol) Sex and Gender Information Value Date Recorded Sex Assigned at Not on file 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 Gender Identity Not on file Sexual Orientation Not on file documented as of this encounter Plan of Treatment Not on file documented as of this encounter Procedures Procedure Name Priority Date/Time Associated Diagnosis Comments DERMATOPATHOLOGY Routine 11/26/2019 12:0 0 AM CHILD CARE CENTRE DIRECTOR documented in this encounter Results * DERMATOPATHOLOGY (11/26/2019 12:00 AM CHILD CARE CENTRE DIRECTOR) Case Report Dermatopathology Report Case: [id number] Authorizing Provider: Gabriela Saunders MD Collected: 11/26/2019 12:00 AM Ordering Location: [facility] DermPath Lab Received: 11/26/2019 02:53 PM Pathologist: Matthew Damon MD Specimens: A) - Skin, right FA B) - Skin, right FA medial C) - Skin, right lat scalp D) - Skin, crown E) - Skin, crown ant 0 7:35 PM [facility] DERMATOPATHOLOGY LABORATORY Final Diagnosis Specimen A. 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 SKIN, right FA medial: BASAL CELL CARCINOMA, NODULAR TYPE (C44.612) Specimen C. SKIN, right lat scalp: HYPERPLASTIC (HYPERTROPHIC) ACTINIC KERATOSIS; EXTENDING TO THE BASE OF THE SPECIMEN (L57.0) HEALING SKIN CHANGES (L90.5) (see microscopic description and comment) Specimen D. 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 0 7:35 PM [facility] DERMATOPATHOLOGY LABORATORY Gross Description Specimen A: Received is one formalin filled container labeled with the patient's name and designated right FA. The specimen consists of a shave measuring 68p5k4dg, bisected. Jar 0. Specimen B: Received is one formalin filled container labeled with the patient's name and designated right FA medial. The specimen consists of a shave measuring 47u7p9fz. Jar 0. Specimen C: Received is one formalin filled container labeled with the patient's name and designated right lat scalp. The specimen consists of a shave measuring 73u55l1hr. Jar 0. Specimen D: Received is one formalin filled container labeled with the patient's name and designated crown. The specimen consists of a shave measuring 04q2l0qi. Jar 0. Specimen E: Received is one formalin filled container labeled with the patient's name and designated crown ant. The specimen consists of a shave measuring 17c80r5em. Jar 0. 0 7:35 PM [facility] DERMATOPATHOLOGY LABORATORY Microscopic Description Specimen A. SKIN, right FA: There is a cellular, dermal based tumor comprised of spindle, oval, and polygonal cells with pleomorphic and polymorphic nuclei. Multinucleated giant cells and mitotic figures are present. The lesional cells are highlighted by immunostains for CD10 and CD68 and fail to highlight with immunostains for S100, desmin, king-cytokeratin, and CD31. 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 On superficial biopsy, these two neoplasms have nearly identical histopathological features with the main distinction based on extent of tumor involvement. Clinical correlation is recommended. Specimen B. SKIN, right FA medial: Within the dermis there are aggregates of basaloid cells with a high nuclear to cytoplasmic ratio and peripheral palisading. Specimen C. SKIN, right lat scalp: There is hyperkeratosis alternating with parakeratosis. There is epidermal hyperplasia with disorderly maturation of keratinocytes with nuclear pleomorphism confined to the lower half of the epidermis. This process extends to the base of the specimen. In the adjacent skin, there is epidermal hyperplasia beneath which there are vascular proliferation, fibroblasts, and an edematous stroma. COMMENT: A squamous cell carcinoma cannot be ruled out. Specimen D. SKIN, crown: Sections show skin with irregularly shaped nests of keratinocytes with evidence of cornification. In some nests, there is loss of cohesion between the neoplastic cells, as well as individual dyskeratotic cells that lack intercellular bridges. Specimen E. SKIN, crown ant: There is a column of marked compact hyperkeratosis. The epidermis shows parakeratosis, full thickness disorderly maturation of keratinocytes, mitoses at different levels, and dyskeratotic cells. 0 7:35 PM [facility] DERMATOPATHOLOGY LABORATORY Disclaimer An external and internal positive and negative controls are appropriate for the histochemical, immunohistochemical and immunofluorescence stain(s) in this case (if any), except where stated explicitly. The performance characteristics of the stain(s) cited in this report were developed and its performance characteristic determined by the Dermatopathology Laboratory at [facility], directed by Dr. Bridget Damon. These tests need not be, and therefore are not, approved by the [place] Food and Drug Administration. The tests are used for clinical purposes. Billing Codes Specimen Charges Stain Charges 80934 98992 72797 41832 49708 1 1 1 1 1 53780 23186 20270 35084 81855 39972 1 1 1 1 1 1 0 7:35 PM [facility] DERMATOPATHOLOGY LABORATORY Embedded Images 0 7:35 PM CHILD CARE CENTRE DIRECTOR DERMATOPATHOLOGY LABORATORY Pathology/Cytology TISSUE SPECIMEN FROM SKIN / Unknown 11/26/2019 11/26/2019 2:53 PM CHILD CARE CENTRE DIRECTOR Miscellaneous samples (specimen) TISSUE SPECIMEN FROM SKIN / Unknown 11/26/2019 11/26/2019 2:53 PM CHILD CARE CENTRE DIRECTOR Miscellaneous samples (specimen) TISSUE SPECIMEN FROM SKIN / Unknown 11/26/2019 11/26/2019 2:53 PM CHILD CARE CENTRE DIRECTOR Miscellaneous samples (specimen) TISSUE SPECIMEN FROM SKIN / Unknown 11/26/2019 11/26/2019 2:53 PM CHILD CARE CENTRE DIRECTOR Miscellaneous samples (specimen) TISSUE SPECIMEN FROM SKIN / Unknown 11/26/2019 11/26/2019 2:53 PM CHILD CARE CENTRE DIRECTOR Gabriela Saunders MD LAB - PATHOLOGY/CYTOLOGY ORD ERABLES Final Result DERMATOPATHOLOGY LABORATORY [facility] - Department of Dermatology [address] [place] [address] 5th Floor Lab [address] [phone] documented in this encounter Visit Diagnoses Not on filedocumented in this encounter Care Teams Clerk Of Court Relationship Specialty Start Date End Date Hakan Mccormick MD PCP - General 04/24/11 documented as of this encounter
--- OUTSIDE RECORDS SUMMARY | 2025-05-25 12:10 | XMS_ITS | Encounter Summary ---
Author Organization [facility] Address [address] [place] [address] Care Team Providers Care Choir Leader Name Role Phone Hakan Mccormick MD Primary Care Provider [phone] Encounter Details Date Type Department Care Team (Late st Contact Info) Description 07/02/2024 Lab Requisition [facility] - Pathology Lab [address] [place] [address] Sae Andrews MD [address] [address] Other pancytopenia Social History Tobacco Use Types Packs/Day Years Used Date Smoking Tobacco: Never Smokeless Tobacco: Never Alcohol Use Standard Drinks/Week Comments No 0 (1 standard drink = 0.6 oz pur e alcohol) Sex and Gender Information Value Date Recorded Sex Assigned at Not on file 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 Gender Identity Not on file Sexual Orientation Not on file documented as of this encounter Plan of Treatment Not on file documented as of this encounter Procedures Procedure Name Priority Date/Time Associated Diagnosis Comments FLOW CYTOMETRY BONE MARROW Routine 07/02/2024 9:21 AM CDT Other pancytopenia (HCC) documented in this encounter Results * FLOW CYTOMETRY BONE MARROW (07/02/2024 9:21 AM CDT) Case Report Flow Cytometry Case: [id number] Authorizing Provider: Sae Andrews Collected: 07/02/2024 09:21 AM MD Flako Ordering Location: [facility] - Received: 07/02/2024 01:27 PM Pathology Lab Pathologist: Noemi Alfonso MD Specimen: Bone Marrow 07/02/2024 3:39 PM [facility] PATHOLOGY LAB Final Diagnosis Bone marrow, flow cytometric immunophenotypic analysis: - No evidence of a monoclonal B-cell population or increase in blasts - See interpretation 07/02/2024 3:39 PM [facility] PATHOLOGY LAB at 1539 CDT Flow Cytometry Interpretation Viability: 91% B-cells: polytypic, kappa:lambda ratio 3.2:1 Blasts: 0.7% of events A bone marrow aspirate smear prepared from the flow cytometry specimen has been reviewed for quality control manager purposes. 07/02/2024 3:39 PM [facility] PATH[facility] LAB Flow Cytometry Results Differential Result Comment Flow Cell Count /uL 12,800 Total Viability % 91.0 Lymphocytes % 14 Dim CD45 Region % 3 Monocytes % 10 Granulocytes % 72 07/02[facility]2024 3:39 [facility] Reason for test Other pancytopenia (HCC) 284.19 07/02/2024 3:39 PM [facility] PATH[facility] Client Specimen ID # [id number] 07/02/2024 3:39 PM [facility] Number of markers 10 were performed. A-2 Flow CD10 A-3 Flow CD13 A-5 Flow CD20 A-1 Flow CD5 A-4 Flow CD19 A-6 Flow CD33 A-7 Flow CD34 A-8 Flow CD45 A-9 Hauser+CD19+ A-10 Lambda+CD19+ 07/02/2024 3:39 PM [facility] Pathologist Location at [facility] 07/02/2024 3:39 PM [facility] PATHOLOGY LAB Disclaimer Test performed at [facility], [address] [place] [address], [address]. *The established laboratory minimum viability is 70%. Values below the minimum may result in the failure to find an abnormal population of cells. This test was developed and its performance characteristics determined by the Flow Cytometry Laboratory. It has not been cleared by the [place] Food and Drug Administration (FDA). The FDA has determined that such clearance or approval is not necessary. This test is used for clinical purposes. It should not be regarded as investigational or for research. This laboratory is regulated under the Clinical Laboratory Improvement Amendments of 1998 (CLIA) as a qualified to perform high complexity clinical testing. 07/02/2024 3:39 PM CDT [facility] PATHOLOGY LAB Embedded Images 3:39 PM CDT [facility] PATHOLOGY LAB Pathology/Cytolo gy BONE MARROW SPECIMEN / Unknown 07/02/2024 9:21 AM CDT 07/02/2024 1:27 PM CDT Sae Andrews MD LAB - PATHOLOGY/CYT OLOGY ORDERABLES Final Result Performing Organization Address City/State/[facility] Co de Phone Number [facility] PATHOLOGY LAB [address] [phone] documented in this encounter Visit Diagnoses Diagnosis Other pancytopenia (HCC) Other pancytopenia documented in this encounter Care Teams Choir Leader Relationship Specialty Start Date End Date Hakan Mccormick MD PCP - General 04/24/11 documented as of this encounter
--- OUTSIDE RECORDS SUMMARY | 2025-05-25 12:10 | XMS_ITS | Encounter Summary ---
Author Organization [facility] Address [address] [facility] [place] [address] Care Team Providers Care Brine Supervisor Name Role Phone Hakan Mccormick MD Primary Care Provider [phone] Encounter Details Date Type Department Care Team (Late st Contact Info) Description 07/02/2023 Lab Requisition [facility] - DermPath Lab [address] [facility] [place] [phone] Tete Baez MD [address] [place] [address] Social History Tobacco Use Types Packs/Day Years Used Date Smoking Tobacco: Never Smokeless Tobacco: Never Alcohol Use Standard Drinks/Week Comments No 0 (1 standard drink = 0.6 oz pur e alcohol) Sex and Gender Information Value Date Recorded Sex Assigned at Not on file 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 Gender Identity Not on file Sexual Orientation Not on file documented as of this encounter Plan of Treatment Not on file documented as of this encounter Procedures Procedure Name Priority Date/Time Associated Diagnosis Comments DERMATOPATHOLOGY Routine 07/02/2023 11:4 5 AM CDT documented in this encounter Results * DERMATOPATHOLOGY (07/02/2023 11:45 AM CDT) Case Report Dermatopathology Report Case: [id number] Authorizing Provider: Tete Baez MD Collected: 07/02/2023 11:45 AM Ordering Location: [facility] DermPath Lab Received: 07/02/2023 04:25 PM Pathologist: Lili Ellsworth MD Specimen: Skin, mid crown 3 4:44 PM CDT DERMATOPATHOLOGY LABORATORY Final Diagnosis Specimen A. SKIN, mid crown: SQUAMOUS CELL CARCINOMA, MODERATELY DIFFERENTIATED (C44.42) 3 4:44 PM CDT DERMATOPATHOLOGY LABORATORY at 1644 CDT Clinical History R/O SCC 3 4:44 PM CDT DERMATOPATHOLOGY LABORATORY Gross Description Specimen A: Received is one formalin filled container labeled with the patient's name and designated mid crown. The specimen consists of a shave biopsy measuring 10x8x1 mm. Jar 0. 3 4:44 PM CDT DERMATOPATHOLOGY LABORATORY Microscopic Description Specimen A. SKIN, mid crown: There are nests of squamous epithelial cells which arise from the epidermis and extend into the dermis. The nests have only focal central keratinization and rare horn michael formation. 3 4:44 PM CDT DERMATOPATHOLOGY LABORATORY Disclaimer An external and internal positive and negative controls are appropriate for the histochemical, immunohistochemical and immunofluorescence stain(s) in this case (if any), except where stated explicitly. The performance characteristics of the stain(s) cited in this report were developed and its performance characteristic determined by the Dermatopathology Laboratory at [facility], directed by Dr. Bridget Damon. These tests need not be, and therefore are not, approved by the [place] Food and Drug Administration. The tests are used for clinical purposes. Billing Codes Specimen Charges Stain Charges 99042 1 3 4:44 PM CDT DERMATOPATHOLOGY LABORATORY Embedded Images 3 4:44 PM CDT DERMATOPATHOLOGY LABORATORY Pathology/Cytolo gy TISSUE SPECIMEN FROM SKIN / Unknown 07/02/2023 11:45 AM CDT 07/02/2023 4:25 PM CDT us Tete Baez MD LAB - PATHOLOGY/CYTOLOGY ORDERA BLES Final Result DERMATOPATHOLOGY LABORATORY [facility] - Department of Dermatology [address], [address] [phone] documented in this encounter Visit Diagnoses Not on filedocumented in this encounter Care Teams Brine Supervisor Relationship Specialty Start Date End Date Hakan Mccormick MD PCP - General 04/24/11 documented as of this encounter
--- OUTSIDE RECORDS SUMMARY | 2025-05-25 12:10 | XMS_ITS | Encounter Summary ---
Author Organization [facility] Address [address] [facility] [place] [address] Care Team Providers Care Log Cutter Name Role Phone Hakan Mccormick MD Primary Care Provider [phone] Encounter Details Date Type Department Care Team (Late st Contact Info) Description 07/19/2023 Lab Requisition [facility] - DermPath Lab [address] [facility], [place] [address] Gabriela Saunders MD [address] [facility] 3 [place] [address] Social History Tobacco Use Types Packs/Day Years Used Date Smoking Tobacco: Never Smokeless Tobacco: Never Alcohol Use Standard Drinks/Week Comments No 0 (1 standard drink = 0.6 oz pur e alcohol) Sex and Gender Information Value Date Recorded Sex Assigned at Not on file 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 Gender Identity Not on file Sexual Orientation Not on file documented as of this encounter Plan of Treatment Not on file documented as of this encounter Procedures Procedure Name Priority Date/Time Associated Diagnosis Comments DERMATOPATHOLOGY Routine 07/19/2023 11:2 8 AM CDT documented in this encounter Results * DERMATOPATHOLOGY (07/19/2023 11:28 AM CDT) Case Report Dermatopathology Report Case: [id number] Authorizing Provider: Gabriela Saunders MD Collected: 07/19/2023 11:28 AM Ordering Location: [facility] DermPath Lab Received: 07/22/2023 12:18 PM Pathologist: Helen Vazquez MD Specimens: A) - Skin, left forearm B) - Skin, right medal forearm 3:40 PM T DERMATOPATHOLOGY LABORATORY Final Diagnosis Specimen A. 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 The specimen consists of a shave biopsy measuring 10x9x1 mm. Jar 0. Specimen B: Received is one formalin filled container labeled with the patient's name and designated right medal forearm. The specimen consists of a shave biopsy measuring 8x9x1 mm. Jar 0. 3:40 PM CDT DERMATOPATHOLOGY LABORATORY Microscopic Description Specimen A. SKIN, left forearm: The epidermis shows parakeratosis, full thickness disorderly maturation of keratinocytes, mitoses at different levels, and dyskeratotic cells. Specimen B. SKIN, right medal forearm: There is a cup-shaped lesion with central hyperkeratosis with elements of parakeratosis. The epithelial cells making up the goodwin of the cup show abundant eosinophilic cytoplasm. There is immaturity of the keratinocytes in the outermost layers of this epithelium. In the dermis there is marked fibroplasia with an inflammatory infiltrate. Additional deeper sections were obtained and reviewed. 3:40 PM CDT DERMATOPATHOLOGY LABORATORY Disclaimer An external [...] purposes. Billing Codes Specimen Charges Stain Charges 33211 16520 1 1 3 3:40 PM CDT DERMATOPATHOLOGY LABORATORY Embedded Images 3 3:40 PM CDT DERMATOPATHOLOGY LABORATORY Pathology/Cytology TISSUE SPECIMEN FROM SKIN / Unknown 07/19/2023 11:28 AM CDT 07/22/2023 12:18 PM CDT Miscellaneous samples (specimen) TISSUE SPECIMEN FROM SKIN / Unknown 07/19/2023 11:28 AM CDT 07/22/2023 12:18 PM CDT us Gabriela Saunders MD LAB - PATHOLOGY/CYTOLOGY ORD ERABLES Final Result DERMATOPATHOLOGY LABORATORY [facility] - Department of Dermatology [facility] Specialized Medicine [address] [place] [address], [address] [phone] documented in this encounter Visit Diagnoses Not on filedocumented in this encounter Care Teams Log Cutter Relationship Specialty Start Date End Date Hakan Mccormick MD PCP - General 04/24/11 documented as of this encounter
--- OUTSIDE RECORDS SUMMARY | 2025-05-25 12:10 | XMS_ITS | Encounter Summary ---
Author Organization [facility] Address [address] [place] [address] Care Team Providers Care Sports Nutritionist Name Role Phone Hakan Mccormick MD Primary Care Provider [phone] Encounter Details Date Type Department Care Team (Late st Contact Info) Description 08/09/2023 Lab Requisition [facility] - Derm[facility] Lab [address], [place] [address] Gabriela Saunders MD [address] [facility] 3 [place] [address] Social History Tobacco Use Types Packs/Day Years Used Date Smoking Tobacco: Never Smokeless Tobacco: Never Alcohol Use Standard Drinks/Week Comments No 0 (1 standard drink = 0.6 oz pur e alcohol) Sex and Gender Information Value Date Recorded Sex Assigned at Not on file 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[employer] Gender Identity Not on file Sexual Orientation Not on file documented as of this encounter Plan of Treatment Not on file documented as of this encounter Procedures Procedure Name Priority Date/Time Associated Diagnosis Comments DERMATOPATHOLOGY Routine 08/09/2023 3:49 PM CDT documented in this encounter Results * DERMATOPATHOLOGY (08/09/2023 3:49 PM CDT) Case Report Dermatopathology Report Case: [id number] Authorizing Provider: Gabriela Saunders MD Collected: 08/09/2023 03:49 PM Ordering Location: [facility] Lab Received: 08/10/2023 04:07 PM Pathologist: Helen Vazquez MD Specimen: Skin, left forearm 12:39 PM T DERMATOPATHOLOGY LABORATORY Final Diagnosis Specimen A. SKIN, left forearm: SQUAMOUS CELL CARCINOMA IN SITU, FOCAL RESIDUAL; NOT PRESENT AT MARGIN (D04.62) ACTINIC KERATOSES, MULTIFOCAL; PRESENT AT MARGIN (L57.0) HEALING SKIN CHANGES AND DERMAL SCAR (L90.5) (see microscopic description) 12:39 PM [facility][NOTE 3] DERMATOPATHOLOGY LABORATORY at 1239 CDT Clinical History SCCIS. Check Margins. 12:39 PM T DERMATOPATHOLOGY LABORATORY Gross Description Specimen A: Received is one formalin filled container labeled with the patient's name and designated left forearm. The specimen consists of a non-oriented ellipse of skin measuring [id number] mm. The epidermal surface is unremarkable. The margin is inked green. The 12 o'clock and 6 o'clock tips are submitted in cassette 1. The remainder of the ellipse is serially sectioned and submitted in cassette 2-4. Jar 0. 12:39 PM [facility][NOTE 3] DERMATOPATHOLOGY LABORATORY Microscopic Description Specimen A. SKIN, left forearm: The epidermis shows parakeratosis, full thickness disorderly maturation of keratinocytes, and dyskeratotic cells. This lesion is not present at the margin of the specimen. In addition, there are multiple foci in which the lower half of the epidermis shows disorderly maturation of keratinocytes with nuclear pleomorphism. This lesion is present at the margin of the specimen. There is epidermal hyperplasia beneath which there are vascular proliferation, fibroblasts, and an edematous stroma. There are fibroblasts and collagen bundles oriented parallel to the skin surface with elongated blood vessels, some of which are oriented perpendicular to the skin surface. 12:39 PM T DERMATOPATHOLOGY LABORATORY Disclaimer An external and internal positive and negative controls are appropriate for the histochemical, immunohistochemical and immunofluorescence stain(s) in this case (if any), except where stated explicitly. The performance characteristics of the stain(s) cited in this report were developed and its performance characteristic determined by the Dermatopathology Laboratory at [facility], directed by Dr. Bridget Damon. These tests need not be, and therefore are not, approved by the [place] Food and Drug Administration. The tests are used for clinical purposes. Billing Codes Specimen Charges Stain Charges 72635 1 3 12:39 PM CDT DERMATOPATHOLOGY LABORATORY Embedded Images 3 12:39 PM CDT DERMATOPATHOLOGY LABORATORY Pathology/Cytolo gy TISSUE SPECIMEN FROM SKIN / Unknown 08/09/2023 3:49 PM CDT 08/10/2023 4:07 PM CDT Gabriela Saunders MD LAB - PATHOLOGY/CYTOLOGY ORD ERABLES Final Result DERMATOPATHOLOGY LABORATORY [facility] - Department of Dermatology [facility] Medicine [address] [place] [address], [address] [phone] documented in this encounter Visit Diagnoses Not on filedocumented in this encounter Care Teams Sports Nutritionist Relationship Specialty Start Date End Date Hakan Mccormick MD PCP - General 04/24/11 documented as of this encounter
--- OUTSIDE RECORDS SUMMARY | 2025-05-25 12:10 | XMS_ITS | Clinical Summary ---
Author Organization [facility] Address [address] [place] [address] Phone Care Team Providers Care Rug Dyer Name Role Phone Hakan Mccormick MD Primary Care Provider Social History Tobacco Use Types Packs/Day Years Used Date Smoking Tobacco: Never Assessed Sex and Gender Information Value Date Recorded Sex Assigned at Not on file Legal Sex Male 9:48 PM CDT Gender Identity Not on file Sexual Orientation Not on file Plan of Treatment Health Maintenance Due Date Last Done Comments Hepatitis C Virus (HCV) Screening 1945 TdaP Immunization 1945 Zoster Immunization (1 of 2) 1994 Pneumococcal Immunization (5 0+ years) (2 of 2 - PCV) 09/02/2015 09/02/2014 Respiratory Syncytial Virus (RSV) Immunization (Adult) (1 - 1-dose 75+ series) 2019 SARS-COV-2 Immunization (3 - season) 2024 02/26/2021, 01/26/2021 Influenza Immunization (#1) 07/13/202508/13, 08/25/2019 Pneumococcal Immunization Combined Discontinued 09/02/2014 Hepatitis B Immunization Aged Out No longer eligible based on patient's age to complete this topic Human Papillomavirus (HPV) Immunization Aged Out No longer eligible based on patient's age to complete this topic Meningococcal Immunization (ACWY) Aged Out No longer eligible based on patient's age to complete this topic Rotavirus Immunization Aged Out No lo nger eligible based on patient's age to complete this topic Insurance MEDICARE [facility] Care Teams Rug Dyer Relationship Specialty Start Date End Date Hakan Mccormick MD PCP - General Internal Medicine 07/29/19
--- OUTSIDE RECORDS SUMMARY | 2025-05-25 12:10 | XMS_ITS | Encounter Summary ---
Author Organization [facility] Address [address] [facility] [place] [address] Care Team Providers Care Wire Rigger Name Role Phone Hakan Mccormick MD Primary Care Provider [phone] Encounter Details Date Type Department Care Team (Late st Contact Info) Description 05/23/2023 Lab Requisition [facility] Derm[facility] Lab [address] [facility] [place] [address] Gabriela Saunders MD [address] [facility] [address] [place] [address] Social History Tobacco Use Types Packs/Day Years Used Date Smoking Tobacco: Never Smokeless Tobacco: Never Alcohol Use Standard Drinks/Week Comments No 0 (1 standard drink = 0.6 oz pur e alcohol) Sex and Gender Information Value Date Recorded Sex Assigned at Not on file 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 Gender Identity Not on file Sexual Orientation Not on file documented as of this encounter Plan of Treatment Not on file documented as of this encounter Procedures Procedure Name Priority Date/Time Associated Diagnosis Comments DERMATOPATHOLOGY Routine 05/23/2023 8:31 AM CDT documented in this encounter Results * DERMATOPATHOLOGY (05/23/2023 8:31 AM CDT) Case Report Dermatopathology Report Case: [id number] Authorizing Provider: Gabriela Saunders MD Collected: 05/23/2023 08:31 AM Ordering Location: [facility] DermPath Lab Received: 05/24/2023 10:57 AM Pathologist: Helen Vazquez MD Specimens: A) - Skin, left anti helix B) - Skin, crown C) - Skin, right crown anter D) - Skin, right crown post E) - Skin, right helix 2:36 PM CDT DERMATOPATHOLOGY LABORATORY Final Diagnosis Specimen A. 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 SKIN, crown: SQUAMOUS CELL CARCINOMA IN SITU (HUMPHREY'S DISEASE) (D04.4) (see microscopic description) Specimen C. 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 SKIN, right crown post: SQUAMOUS CELL CARCINOMA, WELL DIFFERENTIATED (C44.42) (see microscopic description) Specimen E. SKIN, right helix: BASAL CELL CARCINOMA, NODULAR TYPE (C44.212) 2:36 PM CDT DERMATOPATHOLOGY LABORATORY at 1436 CDT Clinical History A-B: R/O BCC C-D: R/O SCC 2:36 PM CDT DERMATOPATHOLOGY LABORATORY Gross Description Specimen A: Received is one formalin filled container labeled with the patient's name and designated left anti helix. The specimen consists of a shave biopsy measuring 7x6x2 mm. Jar 0. Specimen B: Received is one formalin filled container labeled with the patient's name and designated crown. The specimen consists of a shave biopsy measuring [id number] mm. The specimen was serially sectioned and submitted in 2 cassettes. Jar 0. Specimen C: Received is one formalin filled container labeled with the patient's name and designated right crown anter. The specimen consists of a shave biopsy measuring 7x7x2 mm. Jar 0. Specimen D: Received is one formalin filled container labeled with the patient's name and designated right crown post. The specimen consists of a shave biopsy measuring 9x8x2, 7x7x1 mm. Jar 0. Specimen E: Received is one formalin filled container labeled with the patient's name and designated right helix. The specimen consists of a shave biopsy measuring 5x5x1 mm. Jar 0. 3 2:36 PM CDT DERMATOPATHOLOGY LABORATORY Microscopic Description Specimen A. SKIN, left anti helix: Within the dermis there are aggregates of basaloid cells with a high nuclear to cytoplasmic ratio and peripheral palisading. Specimen B. SKIN, crown: The epidermis shows parakeratosis, full thickness disorderly maturation of keratinocytes, mitoses at different levels, and dyskeratotic cells. The lesion extends to the base of the specimen as adnexal extension. Specimen C. SKIN, right crown anter: Sections show skin with irregularly shaped nests of keratinocytes with evidence of cornification. In some nests, there is loss of cohesion between the neoplastic cells, as well as individual dyskeratotic cells that lack intercellular bridges. Specimen D. SKIN, right crown post: Arising in the epidermis and extending into the dermis there are irregularly shaped aggregates of keratinocytes showing evidence of premature cornification. Focal acantholytic features are noted. Specimen E. SKIN, right helix: Within the dermis there are aggregates of basaloid cells with a high nuclear to cytoplasmic ratio and peripheral palisading. 3 2:36 PM CDT DERMATOPATHOLOGY LABORATORY Disclaimer An external and internal positive and negative controls are appropriate for the histochemical, immunohistochemical and immunofluorescence stain(s) in this case (if any), except where stated explicitly. The performance characteristics of the stain(s) cited in this report were developed and its performance characteristic determined by the Dermatopathology Laboratory at [facility], directed by Dr. Bridget Damon. These tests need not be, and therefore are not, approved by the [place] Food and Drug Administration. The tests are used for clinical purposes. Billing Codes Specimen Charges Stain Charges 79507 39032 46447 93184 19320 1 1 1 1 1 3 2:36 PM CDT DERMATOPATHOLOGY LABORATORY Embedded Images 3 2:36 PM CDT DERMATOPATHOLOGY LABORATORY Pathology/Cytology TISSUE SPECIMEN FROM SKIN / Unknown 05/23/2023 8:31 AM CDT 05/24/2023 10:57 AM CDT Miscellaneous samples (specimen) TISSUE SPECIMEN FROM SKIN / Unknown 05/23/2023 8:31 AM CDT 05/24/2023 10:57 AM CDT Miscellaneous samples (specimen) TISSUE SPECIMEN FROM SKIN / Unknown 05/23/2023 8:31 AM CDT 05/24/2023 10:57 AM CDT Miscellaneous samples (specimen) TISSUE SPECIMEN FROM SKIN / Unknown 05/23/2023 8:31 AM CDT 05/24/2023 10:57 AM CDT Miscellaneous samples (specimen) TISSUE SPECIMEN FROM SKIN / Unknown 05/23/2023 8:31 AM CDT 05/24/2023 10:57 AM CDT us Gabriela Saunders MD LAB - PATHOLOGY/CYTOLOGY ORD ERABLES Final Result DERMATOPATHOLOGY LABORATORY [facility] - Department of Dermatology [facility] Medicine [address] [place] [address], [address] [phone] documented in this encounter Visit Diagnoses Not on filedocumented in this encounter Care Teams Wire Rigger Relationship Specialty Start Date End Date Hakan Mccormick MD PCP - General 04/24/11 documented as of this encounter
--- NOTE | 2025-05-25 12:18 | ED.GENADULT ---
HPI - General Adult General Chief complaint: Altered Mental Status Stated complaint: weakness Time Seen by Provider: 05/25/25 12:17 Source: patient and EMS Mode of arrival: EMS History of Present Illness HPI narrative: 79 years old white male came from rehab with sudden spell of dizziness, room was spinning and was not able to talk at that time lasted for about 10-15 minutes then resolved. In the ED patient is asymptomatic. History of syncope, went [facility], then discharge to rehab 4 days ago. Patient is DNR. History of diabetes, hypertension, hyperlipidemia, congestive heart failure, currently on baby aspirin once a day. Patient denies any fever, chills, nausea, vomiting, chest pain, shortness of breath, abdominal pain or back pain or headache Or focal neuro deficit. Related Data Home Medications ?Medication ?Instructions ?Recorded ?Confirmed ?Last Taken ?Type aspirin 81 mg tablet 81 mg PO DAILY 07/01/24 05/25/25 07/01/24 History atorvastatin 40 mg tablet 40 mg PO QPM 07/01/24 05/25/25 07/01/24 History carvedilol 6.25 mg tablet 6.25 mg PO BID 07/01/24 05/25/25 07/01/24 History chlorthalidone 50 mg tablet 50 mg PO DAILY 07/01/24 05/25/25 07/01/24 History mecobalamin (vitamin B12) 500 mcg 500 mcg PO DAILY 07/01/24 05/25/25 07/01/24 History chewable tablet metformin 500 mg tablet 2,000 mg PO HS 07/01/24 05/25/25 06/30/24 History oxybutynin chloride 5 mg tablet 5 mg PO BID 07/01/24 05/25/25 07/01/24 History potassium chloride 20 mEq 20 meq PO DAILY 07/01/24 05/25/25 07/01/24 History tablet,extended release(part/cryst) torsemide 40 mg tablet 40 mg PO QAM 05/25/25 05/25/25 Unknown History Allergies Allergy/AdvReac Type Severity Reaction Status Date / Time Iodinated Contrast Media Allergy Unknown Anaphylaxis Verified 05/25/25 12:13 Review of Systems Review of Systems: All systems reviewed & are unremarkable except as noted in HPI and below PMFSH Past Medical History Medical History Myocardial infarction Social History Social History Smoking status: Never smoker Second hand tobacco smoke exposure: Yes Alcohol intake: former Alcohol use details: none since 2009 Substance use: never Living arrangements: with family Spiritual care concerns: No Exam Narrative: General appearance: Well-developed, well-nourished Skin: Normal color , forehead and top of the scalp skin cancer, healing, covered with dressing Head: Normocephalic, nontraumatic Eyes: Clear conjunctiva ENT: Oropharynx normal, ears normal, nose normal Neck: Supple, nontender Chest and respiratory: Airway patent, no respiratory distress, no accessory muscle use Heart: Regular rate/rhythm Abdomen: Soft, nontender, no organomegaly, quiet bowel sounds Vascular: Normal peripheral pulses, normal capillary refill. Musculoskeletal: Normal range of motion, nontender back Neurologic: Alert and oriented ?3, WELD TECHNICIAN is normal as tested, no gross motor deficit Course Consultations Consultation #1: DR ANTONIO, NEUROLOGIST AT [facility] Date: 05/25/25 Time: 16:30 Vital Signs Vital signs: Vital Signs Temperature 36.6 C 05/25/25 12:10 Pulse Rate 73 05/25/25 12:10 Respiratory Rate 18 05/25/25 12:10 Blood Pressure 124/61 05/25/25 12:10 Pulse Oximetry 98 05/25/25 12:10 Oxygen Delivery Room Air 05/25/25 12:10 Temperature 36.6 C 05/25/25 12:10 Pulse Rate 76 05/25/25 17:02 Respiratory Rate 17 05/25/25 17:00 Blood Pressure 101/55 L 05/25/25 17:02 Pulse Oximetry 98 05/25/25 17:02 Oxygen Delivery Room Air 05/25/25 12:22 Medical Decision Making [facility] Narrative Medical decision making narrative: patient came to the ED with sudden onset of spinning and trouble talking at that time lasted for 10-15 minutes, in the ED patient is asymptomatic. Vital signs within normal limit Physical examination unremarkable for significant findings Differential diagnosis include :vertigo, TIA, electrolyte imbalance, dehydration, urinary tract infection, anxiety/ depression , half sleep Blood workup include CBC, CMP, troponin, pro BnP, coags showed potassium 2.9, calcium 8.2, pro BMP 318 otherwise insignificant abnormalities EKG showed electronic atrial pacemaker Chest x-ray showed no acute abnormalities CT head showed no significant abnormalities Diagnosis: TIA -suspected, hypokalemia Patient's, patient's family requested be transferred to [facility] . [facility], NO WAITING LIST DR. AL, HOSPITALIST AT [facility] ACCEPTED PATIENT TRANSFER, NO BED AVAILABLE AT THIS TIME DR. TAYLOR, THE HOSPITALIST AT [facility] ACCEPTED PATIENT TRANSFER Differential Diagnosis Differential Diagnosis: As above Vital Signs Vital Signs: Vital Signs Temperature 36.6 C 05/25/25 12:10 Pulse Rate 73 05/25/25 12:10 Respiratory Rate 18 05/25/25 12:10 Blood Pressure 124/61 05/25/25 12:10 Pulse Oximetry 98 05/25/25 12:10 Oxygen Delivery Room Air 05/25/25 12:10 Temperature 36.6 C 05/25/25 12:10 Pulse Rate 76 05/25/25 17:02 Respiratory Rate 17 05/25/25 17:00 Blood Pressure 101/55 L 05/25/25 17:02 Pulse Oximetry 98 05/25/25 17:02 Oxygen Delivery Room Air 05/25/25 12:22 Lab Data 05/25/25 13:05 05/25/25 13:05 Labs: Lab Results 05/25/25 05/25/25 Range/Units 12:31 13:05 WBC 3.8 L (4.8-10.8) K/mm3 RBC 3.85 L (4.70-6.10) M/mm3 Hgb 11.6 L (12.4-15.3) g/dL Hct 35.2 L (37.0-46.0) % MCV 91.4 (78.0-102.0) fL MCH 30.1 (27.0-31.0) pg MCHC 33.0 (32-36) g/dL RDW 17.0 H (11.6-14.4) % Plt Count 81 L (150-420) K/mm3 MPV 10.8 (8.7-11.0) fl Immature Gran % (Auto) Not Reportable Neut % (Auto) Not Reportable Lymph % (Auto) Not Reportable Delta % (Auto) Not Reportable Eos % (Auto) Not Reportable Baso % (Auto) Not Reportable Lymph # (Auto) Not Reportable Delta # (Auto) Not Reportable Eos # (Auto) Not Reportable Baso # (Auto) Not Reportable Abs Immat Gran (auto) Not Reportable Absolute Neuts (auto) Not Reportable Absolute Nucleated RBC Not Reportable Total Counted 100 Neutrophils % (Manual) 50 (46-73) % Band Neutrophils % 1 (0-6) % Lymphocytes % (Manual) 32 (18-44) % Monocytes % (Manual) 14 H (3-9) % Eosinophils % (Manual) 3 (1-6) % Nucleated RBC % Not Reportable Abs Neuts (Manual) 1.93 (1.3-6.7) K/mm3 Abs Lymphs (Manual) 1.21 (1.1-4.5) K/mm3 Abs Monocytes (Manual) 0.53 (0.1-0.90) K/mm3 Absolute Eos (Manual) 0.11 (0.02-0.50) K/mm3 Platelet Estimate Decreased (Adequate) % Immature Plt Fraction 3.2 (1.0-7.0) % Schistocytes Not Reportable PT 12.0 (9.50-12.1) Seconds INR 1.1 APTT 31.3 H (23.9-30.70) Sec Sodium 136 L (137-145) mmol/L Potassium 2.9 L (3.4-5.0) mmol/L Chloride 93 L (98-107) mmol/L Carbon Dioxide 38 H (22-30) mmol/L Anion Gap 5 (4-12) mmol/L BUN 20 (9-20) mg/dL Creatinine 0.96 (0.7-1.3) mg/dL Estim Creat Clear Calc 73 ml/min Estimated GFR > 60 (59 - ) Glucose 122 H (65-110) mg/dL Calculated Osmolality 285 (285-295) mOsm/kg Calcium 8.2 L (8.4-10.2) mg/dL Total Bilirubin 1.3 (0.2-1.3) mg/dL AST 40 (17-59) U/L ALT 26 (6-50) U/L Alkaline Phosphatase 104 (38-126) U/L Troponin I 0.018 (0.000-0.034) ng/mL NT-Pro-B Natriuret Pep 318 H (19.9-100) pg/mL Total Protein 7.0 (6.3-8.2) g/dL Albumin 3.1 L (3.5-5.1) g/dL Urine Color Light yellow (Yellow) Urine Appearance Clear (Clear) Urine pH 6.5 (5.0-8.0) Ur Specific [place] 1.010 (1.010-1.020) Urine Protein Negative (Negative) Urine Glucose (UA) Negative (Negative) Urine Ketones Negative (Negative) Ur Blood (Man) Negative (Negative) Urine Nitrate Negative (Negative) Urine Bilirubin Negative (Negative) Urine Urobilinogen 2.0 H (0.2-1.0) mg/dL Leukocyte Esterase Rfl Negative (Negative) FAUSTO/UL Urine RBC None seen (0-2) /hpf Urine WBC None seen (0-3) /hpf Ur Squamous Epith Cells Occasional (Few) /hpf Urine Bacteria Rare (None) /hpf Imaging Data Radiologist's impression: Impressions Head CT 05/25/25 13:02 IMPRESSION: No acute intracranial findings. Chest X-Ray 05/25/25 13:08 IMPRESSION: No acute cardiopulmonary pathology. ECG Data EKG #1: Attestation: I personally reviewed and interpreted this ECG as follows: Discharge Plan Discharge Clinical Impression: Brain TIA, Acute hypokalemia Patient Disposition: Acute Care Hospital Condition: Improved Patient Language: [place] Islander Prescriptions: No Action torsemide 40 mg tablet 40 mg PO QAM atorvastatin 40 mg tablet 40 mg PO QPM metformin 500 mg Tablet 2,000 mg PO HS carvedilol 6.25 mg tablet 6.25 mg PO BID chlorthalidone 50 mg Tablet 50 mg PO DAILY potassium chloride 20 mEq tablet,ER particles/crystals 20 meq PO DAILY aspirin 81 mg Tablet 81 mg PO DAILY oxybutynin chloride 5 mg Tablet 5 mg PO BID mecobalamin (vitamin B12) 500 mcg Tablet,Chewable 500 mcg PO DAILY Follow-up/Referrals: UNKNOWN,DOCTOR [Non-Staff] - Quality Stroke Scale Stroke Scale 1: Stroke scale date:: 05/25/25 Stroke scale time:: 12:37 1a Level of consciousness: alert-0 1b Level of consciousness questions: answers both correctly-0 1c Level of consciousness commands: obeys both correctly-0 2 Best gaze: normal-0 3 Visual: no visual loss-0 4 Facial palsy: normal-0 5a Motor: left arm: no drift-0 5b Motor: right arm: no drift-0 6a Motor: left leg: no drift-0 6b Motor: right leg: no drift-0 7 Limb ataxia: absent-0 8 Sensory: normal-0 9 Best language: no aphasia-0 10 Dysarthria: normal-0 11 Extinction and inattention: no abnormality-0 Level:: 0
--- OUTSIDE RECORDS SUMMARY | 2025-05-25 12:24 | XMS_ITS | Clinical Summary ---
Author Organization [facility] Address [address] [place] [address] Care Team Providers Care Educational Diagnostician Name Role Phone Maria Esther Montemayor OT Unavailable Unavailable Mahesh Llamas MD Primary Care Provider [phone] Allergies Active Allergy Reactions Criticality Noted Date Comments Iodinated Contrast Media Nausea & Vomiting,Other (See comments) High 05/01/2011 Vomiting and chest pain Iodine Other (See comments) Reaction: Unknown, Ioversol Other (See comments) Reaction: Unknown, Sulfa Unknown 05/03/2025 Medications aspirin 81 mg enteric coated tablet Take 1 tablet (81 mg total) by mouth daily Active vitamin A04-dhxpz acid 0.5-1 mg tablet Take 1 tablet by mouth every other day Active oxyBUTYnin (DITROPAN) 5 mg tablet Take 1 tablet (5 mg total) by mouth 2 (two) times a day 180 tablet 1 09/05/20 24 Active metFORMIN XR (GLUCOPHAGE XR) 500 mg 24 hr tablet TAKE 4 TABLETS BY MOUTH DAILY WITH THE EVENING MEAL 360 tablet 1 09/05/20 24 Active atorvastatin (LIPITOR) 40 mg tablet Take 1 tablet (40 mg total) by mouth daily 90 tablet 1 09/05/20 24 Active oxymetazoline (AFRIN) 0.05 % nasal spray Administer 2 sprays into each nostril 2 (two) times a day 30 mL 11/14/19 25 Active potassium chloride ER (KLOR-CON) 20 mEq CR tablet Take 2 tablets (40 mEq total) by mouth 2 (two) times a day for 10 days 40 tablet 01/05/20 25 Active chlorthalidone (HYGROTON) 50 mg tablet Take 1 tablet (50 mg total) by mouth 3 (three) times a week 12 tablet 11 01/07/20 25 026 Active imiquimod (ALDARA) 5 % cream Wash hands prior to and following application Apply to left lower leg lesion 2 times a day for 14 days. 12 each 01/31/20 25 Active Additional Information Patient not taking.Informant: Spouse/Significant Other, Reported on 05/03/2025 furosemide (LASIX) 40 mg tabletIndicatio ns:Hypertension , essential TAKE 1 TABLET BY MOUTH DAILY. GENERIC EQUIVALENT FOR LASIX 90 tablet 3 02/24/20 25 Active isosorbide mononitrate ER (IMDUR) 60 mg 24 hr tablet TAKE 1 TABLET BY MOUTH DAILY ALONG WITH 30 MG TO TOTAL 90 MG DAILY 03/29/20 25 Active carvediloL (COREG) 6.25 mg tablet TAKE 1 TABLET(6.25 MG) BY MOUTH TWICE DAILY WITH MEALS 180 tablet 3 05/21/20 25 Active carvediloL (COREG) 6.25 mg tablet Take 1 tablet (6.25 mg total) by mouth 2 (two) times a day with meals 180 tablet 3 08/04/20 24 025 Discontinued cefdinir (OMNICEF) 300 mg capsuleIndicati ons:Skin/Soft Tissue Infection Take 1 capsule (300 mg total) by mouth 2 (two) times a day for 3 doses 3 capsule 05/08/20 25 025 Active Problems Problem Noted Date Diagnosed Date Sepsis without acute organ d ysfunction, due to unspecified organism 05/03/2025 Generalized weakness 01/01/2025 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 09/18/2024 Cellulitis of right lower limb 03/25/2024 Non-pressure chronic ulcer o f unspecified part of left lower leg with unspecified severity 03/06/2024 Venous insufficiency (chronic) (peripheral) 02/11 Unilateral primary osteoarthritis, left knee Presence of cardiac pacemaker 03/06/2024 Presence of aortocoronary bypass graft Old myocardial infarction 03/06/2024 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 03/06/2024 Actinic keratosis 03/06/2024 Aneurysm of the ascending aorta, without rupture 03/06/2024 Fall, initial encounter 03/03/2024 Primary osteoarthritis of both knees 12/19/2023 Upper respiratory tract infection 10/11/2023 Assessment & Plan (10/11/2023 3:31 PM RETAIL TEAM LEADER): Acute problem- this is a new problem Ordered CXR Ordered Amoxicillin 875 mg- take 1 tablet bid Ordered Covid, Flu A/B POC- negative results Recommend over the counter Coricidin HBP for cough and congestion-use as directed Felice's Vapocool- cough lozenges Tylenol/ibuprofen as needed Increase fluids, rest and handwashing Warm saltwater gargles Hot water/hot tea with honey 1 teaspoon of honey every 4 hours Saline rinses to nose at least twice daily No sharing cups or utensils Cool mist humidifier May use vicks vaporub on chest and feet as needed to help with cough Replace toothbrush in 3 to 5 days Wash pillow and bed linens Follow up as scheduled-sooner prn if no improvement after completing antibiotic Need for influenza vaccination 09/15/2023 Assessment & Plan (09/15/2023 9:06 AM CDT): Ordered and administered this visit after patient agreed to receive Subclinical hypothyroidism 06/21/2020 Assessment & Plan (01/18/2024 11:06 AM RETAIL TEAM LEADER): Check thyroid studies again due to anemia and call back for results Assessment & Plan (07/10/2023 2:32 PM CDT): Remains asymptomatic and will check TSH and free T4 in 1 year. Assessment & Plan (01/08/2023 1:39 PM RETAIL TEAM LEADER): Check TSH and FT4 before next visit. Assessment & Plan (07/10/2022 1:39 PM CDT): Remains asymptomatic will check TSH and FT4 again 1 year. Assessment & Plan (07/07/2021 1:42 PM CDT): Chronic and asymptomatic will check again in 1 year. Assessment & Plan (06/21/2020 10:16 AM CDT): Currently asymptomatic and will check TSH and free T4 in 1 year. Atrial fibrillation 06/21/2020 Overview (06/21/2020): Per patients report Assessment & Plan (06/25/2024 12:58 PM CDT): Stable, well controlled; no chest pain, some dyspnea; pacemaker in place Continue ASA 81 mg daily, carvedilol 6.25 mg Assessment & Plan (01/18/2024 11:06 AM RETAIL TEAM LEADER): Rate controlled on carvedilol and will continue anticoagulation based on licensed practical vocational nurse's recommendations. Assessment & Plan (07/10/2023 2:30 PM CDT): Rate controlled on carvedilol and will continue anticoagulation per his licensed practical vocational nurse recommendations. Assessment & Plan (07/10/2022 1:40 PM CDT): Rate controlled will continue anticoagulation per his licensed practical vocational nurse recommendations Assessment & Plan (10/24/2021 2:41 PM RETAIL TEAM LEADER): Rate controlled on carvedilol and will continue anticoagulation per his licensed practical vocational nurse. Assessment & Plan (07/07/2021 1:42 PM CDT): Rate controlled on beta-robyn will continue Xarelto for anticoagulation. Assessment & Plan (01/06/2021 7:51 PM RETAIL TEAM LEADER): Rate controlled on beta-robyn and continue Xarelto for anticoagulation. Assessment & Plan (10/29/2020 2:25 PM RETAIL TEAM LEADER): Rate controlled on his beta-robyn and will continue Xarelto for anticoagulation. Assessment & Plan (06/21/2020 10:17 AM CDT): Continue Xarelto for anticoagulation through his licensed practical vocational nurse office and rate is currently well controlled on his metoprolol Chronic left shoulder pain 11/24/2019 Assessment & Plan (11/24/2019 12:02 PM RETAIL TEAM LEADER): X-rays show osteoarthritis. Examination shows possible impingement syndrome. Orthopedic referral for further evaluation. SSS (sick sinus syndrome) 11/14/2019 Assessment & Plan (11/14/2019 1:52 PM RETAIL TEAM LEADER): Last interrogation showed 9% A pace, 12% V pace frequent PAF with burden 40%, MARIO 7.3 years Lymphedema due to venous insufficiency 9 Overview (06/21/2020): Discharged from [facility]; pump + velcro compression bandages. 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 for possible lower extremity infection Assessment & Plan (01/18/2024 11:06 AM RETAIL TEAM LEADER): Encouraged strict compliance with his wrappings and pump and follow up with lymphedema clinic as they direct. Assessment & Plan (09/15/2023 9:07 AM CDT): Chronic problem-worsening Current weeping edema to LLE Will treat empirically- ordered Augmentin 875-125 mg-take 1 tablet bid x 7 days Referral for wound care clinic- has seen Dr. Betsy Baeza in the past Continue with cleansing of skin- warm soapy water, rinse well, pat dry and reapply compression dressing and socks Continue with lymphedema pumps as directed Elevate ble at least 30 minutes 3 times a day Continue to ambulate often Assessment & Plan (07/10/2023 2:31 PM CDT): Continue compression wrappings and lymphedema pump. Assessment & Plan (10/24/2021 2:41 PM RETAIL TEAM LEADER): He has some skin breakdown on his left lower extremity and will refer to [facility] wound care center for further evaluation. He may need to go back to [facility] for chronic management of his lymphedema. Assessment & Plan (07/07/2021 1:42 PM CDT): Continue pump and Velcro compression bandages and return to [facility] as needed. Assessment & Plan (06/21/2020 10:17 AM CDT): He should be more compliant with his pump and Velcro compression bandages. Assessment & Plan (11/24/2019 12:01 PM RETAIL TEAM LEADER): Patient should follow-up with the lymphedema clinic and follow their directions. Assessment & Plan (07/24/2019 5:01 PM CDT): Referral to [facility] lymphedema clinic. Will see him back in about a month for his missed follow-up examination with lab sooner if needed. Basal cell carcinoma (BCC) of right upper arm Overview (05/19/2019): Added automatically from request for surgery [id number] Skin lesion of right upper extremity 05/06/2019 Ventral hernia without obstruction or gangrene 0 04/24/2019 Overview (04/24/2019): Added automatically from request for surgery [id number] Assessment & Plan (07/24/2019 5:00 PM CDT): Incision is clean dry and intact and should follow up with Dr. Pereira as he directs. Assessment & Plan (05/04/2019 2:11 PM CDT): Patient has perioperative risk factors including hypertension, age, coronary artery disease, diabetes but has a normal functional capacity and a reported recent normal stress test and therefore deemed appropriate candidate for current surgery without further intervention or workup. He is aware that not all risk can be predicted nor prevented and is willing to assume the inherent risk for the proposed benefit. He is directed to have his right arm skin lesion removed before his hernia repair however. Left leg cellulitis 03/21/2018 Assessment & Plan (09/18/2024 7:55 PM RETAIL TEAM LEADER): Wound care as discussed. Start on Augmentin b.i.d. times 10 days. Assessment & Plan (01/18/2024 11:06 AM RETAIL TEAM LEADER): Cephalexin for 10 days and call back if no improvement. Assessment & Plan (11/24/2019 12:02 PM RETAIL TEAM LEADER): Resolved after the addition of Bactrim. Return to clinic for recurrent signs of infection. Follow-up with the lymphedema clinic as they direct. Assessment & Plan (11/10/2019 5:45 PM RETAIL TEAM LEADER): Significantly improved since last visit. Patient instructed to complete course of Bactrim as previously instructed and follow up in office in 1-2 weeks for re-evaluation. He should follow-up certainly sooner with absolutely any concerns including but not limited to increased swelling, recurrent erythema or warmth, fevers, chills or other concerns. Patient verbalized understanding agreed to plan of care at this time he'll be following up in office in 1-2 weeks for re- evaluation. Assessment & Plan (11/10/2019 4:57 PM RETAIL TEAM LEADER): Will add Bactrim 800-160 mg per tab 1 tablet by mouth 2 times daily for 10 days. Patient instructed to keep leg elevated throughout the weekend without any strenuous activity. In addition will follow up in office on Sunday although he should report to emergency department over the weekend with absolutely any worsening concerns including but not limited to fever, chills, increased swelling or pain. Patient verbalized understanding agreed to plan of care at this time he will follow-up on Sunday as discussed. Assessment & Plan (10/29/2019 2:43 PM RETAIL TEAM LEADER): Recommend in doxycycline 100 mg b.i.d. Times 10 days and follow-up in 1 week. In addition instructed on use of [id number] probiotics as well as yogurt to help with possible stomach upset. Continue to cleanse as instructed by lymphedema clinic keep area dry. Would recommend elevation. The area was marked with a permanent marker prior to our visit today and they are instructed to notify office with absolutely any changes. Patient and verbalized standing agreed to plan of care at this time will notify office with absolutely any concerns. Assessment & Plan (03/21/2018 4:15 PM CDT): Recommended cephalexin 500 mg t.i.d. x7 days follow up here in a week. [id number] probiotics or [place] yogurt to assist GI upset was discussed. Other treatment modalities were discussed including cleansing with Dial soap, management of lower extremity swelling as this is likely upper occurs or for the infection development, close monitoring of glucose discussed as well, were going to see him here in a week or sooner regarding condition. Area was marked with a permanent marker so then they will be able to keep an eye out for any worsening in the infection as well as he does have history of neuropathy. Follow-up in a week or sooner as needed Class 2 severe obesity due t o excess calories with serious comorbidity and body mass index (BMI) of 35.0 to 35.9 in adult 02/05/2018 Assessment & Plan (06/25/2024 12:57 PM CDT): Generally well controlled; patient has significant peripheral edema and lymphedema which contribute to excess Assessment & Plan (01/22/2019 4:10 PM CDT): The patient was counseled on the importance of maintaining a healthy weight and the risks of obesity. Weight loss recommended. Assessment & Plan (10/22/2018 2:07 PM RETAIL TEAM LEADER): Patient is encouraged to lose weight with a combination of caloric reduction and increased exercise. Various strategies discussed. The long-term risks associated with continued morbid obesity discussed. Assessment & Plan (07/15/2018 9:36 PM CDT): Patient is encouraged to lose weight with a combination of caloric reduction and increased exercise. Various strategies discussed. The long-term risks associated with continued morbid obesity discussed. Assessment & Plan (03/21/2018 4:13 PM CDT): Recommended patient to continue to increase heart healthy diet with adequate fruits, vegetables, and plenty of water along with mild-moderate daily exercise as tolerated. Assessment & Plan (02/05/2018 5:52 PM CDT): Patient is encouraged to lose weight with a combination of caloric reduction and increased exercise. Various strategies discussed. The long-term risks associated with continued morbid obesity discussed. Thrombocytopenia ([facility] 02/05/2018 Assessment & Plan (09/18/2024 7:55 PM RETAIL TEAM LEADER): Followed by hematology. Assessment & Plan (01/18/2024 11:05 AM RETAIL TEAM LEADER): Platelet level back to baseline. Currently asymptomatic. Assessment & Plan (07/10/2023 2:33 PM CDT): Asymptomatic. Just below his chronic baseline will check again in 6 months and he should call back if bruising or bleeding develops. Hematology referral if worsens. Assessment & Plan (07/10/2022 1:39 PM CDT): Mild chronic stable and asymptomatic. Check again 1 year. Assessment & Plan (11/30/2021 5:51 PM RETAIL TEAM LEADER): Chronic, stable. SCDs for DVT ppx. Assessment & Plan (10/24/2021 2:40 PM RETAIL TEAM LEADER): Chronic mild stable and asymptomatic Assessment & Plan (07/07/2021 1:42 PM CDT): Chronic and asymptomatic and due to slightly lower level, will repeat before next visit. Assessment & Plan (06/21/2020 10:16 AM CDT): Mild chronic and stable and asymptomatic Assessment & Plan (03/05/2019 9:49 AM CDT): Mild, stable, asymptomatic. Assessment & Plan (07/15/2018 9:35 PM CDT): Mild and asymptomatic and will continue to monitor. Assessment & Plan (02/05/2018 5:52 PM CDT): Mild and chronic and asymptomatic. Medicare annual wellness visit, subsequent 02/05 Assessment & Plan (07/10/2023 2:32 PM CDT): We discussed a comprehensive list of medical conditions and proposed recommendations for each. We discussed the importance of increased exercise, fall prevention, proper nutrition, and suggested joining [employer] [facility] to accomplish most of these goals. Patient was given an age appropriate Medicare preventive services checklist. Please see the EMR regarding details of their health risk assessment and preventive services checklist. Will see him back in 6 months with lab sooner if needed. Assessment & Plan (07/10/2022 1:40 PM CDT): We discussed a comprehensive list of medical conditions and proposed recommendations for each. We discussed the importance of increased exercise, fall prevention, proper nutrition, and suggested joining [facility] to accomplish most of these goals. Patient was given an age appropriate Medicare preventive services checklist. Please see the EMR regarding details of their health risk assessment and preventive services checklist. Will see him back in 6 months with lab sooner if needed. Assessment & Plan (07/07/2021 1:42 PM CDT): We discussed a comprehensive list of medical conditions and proposed recommendations for each. We discussed the importance of increased exercise, fall prevention, proper nutrition, and suggested joining [facility] to accomplish most of these goals. Patient was given an age appropriate Medicare preventive services checklist. Please see the EMR regarding details of their health risk assessment and preventive services checklist. Will see him back in 4 months with lab sooner if needed. Assessment & Plan (06/21/2020 10:18 AM CDT): We discussed a comprehensive list of medical conditions and proposed recommendations for each. We discussed the importance of increased exercise, fall prevention, proper nutrition, and suggested joining [facility] to accomplish most of these goals. Patient was given an age appropriate Medicare preventive services checklist. Please see the EMR regarding details of their health risk assessment and preventive services checklist. Will see him back in 6 months with lab sooner if needed. Assessment & Plan (03/05/2019 9:51 AM CDT): We discussed a comprehensive list of medical conditions and proposed recommendations for each. We discussed the importance of increased exercise, fall prevention, proper nutrition, and suggested joining [facility] to accomplish most of these goals. Patient was given an age appropriate Medicare preventive services checklist. Please see the EMR regarding details of their health risk assessment and preventive services checklist. Will see him back in 4 months with lab sooner if needed. Assessment & Plan (02/05/2018 5:53 PM CDT): We discussed a comprehensive list of medical conditions and proposed recommendations for each. We discussed the importance of increased exercise, fall prevention, proper nutrition, and suggested joining [facility] to accomplish most of these goals. Patient was given an age appropriate Medicare preventive services checklist. Please see the EMR regarding details of their health risk assessment and preventive services checklist. Will see him back in 4 months with fasting lab sooner if needed. At moderate risk for fall 02/05/2018 Assessment & Plan (07/10/2022 1:40 PM CDT): Walk in well lit rooms without clutter on the floor and use handrails on all stair cases. Assessment & Plan (07/07/2021 1:43 PM CDT): Walk in well lit rooms without clutter on the floor and use handrails on all stair cases. Assessment & Plan (06/21/2020 10:18 AM CDT): Walk in well lit rooms without clutter on the floor and use handrails on all stair cases and uses cane at all times Assessment & Plan (03/05/2019 9:52 AM CDT): Walk with a cane at all times. Walk in well lit rooms without clutter on the floor. Use handrails on all stair cases. Assessment & Plan (02/05/2018 5:54 PM CDT): Walk in well lit rooms without clutter on the floor and uses cane at all times and use handrails on stair cases. Iron deficiency anemia 08/02/2017 Overview (08/02/2017): Colonoscopy, EGD, small-bowel follow-through, urinary analysis all unremarkable. B12 deficiency anemia 08/02/2017 Assessment & Plan (01/18/2024 11:07 AM RETAIL TEAM LEADER): Recheck B12 level along with iron panel, folate, thyroid studies today and call back for results. Check CBC after next visit. Assessment & Plan (07/10/2023 2:31 PM CDT): Decrease B12 supplementation check level in 1 year. Assessment & Plan (07/10/2022 1:40 PM CDT): Continue supplementation check level in 1 year. Assessment & Plan (07/07/2021 1:42 PM CDT): Continue B12 supplementation but decreased dose and check level in 1 year. Assessment & Plan (01/06/2021 7:51 PM RETAIL TEAM LEADER): Continue B12 supplementation. Assessment & Plan (06/21/2020 10:17 AM CDT): Reduce B12 intake and check level in 1 year. Assessment & Plan (03/05/2019 9:52 AM CDT): B12 level normal. Hemoglobin below normal. Repeat CBC with diff, iron panel, ferritin, TSH, folate before next visit. Assessment & Plan (02/05/2018 5:52 PM CDT): Both B12 hemoglobin normal with supplementation. Assessment & Plan (08/02/2017 2:52 PM CDT): Check B12 level before next visit and continue current supplementation. Diabetic peripheral neuropathy 08/02/2017 Assessment & Plan (07/10/2023 2:31 PM CDT): Well controlled without medication. Assessment & Plan (01/06/2021 7:51 PM RETAIL TEAM LEADER): Remains stable without medication. Assessment & Plan (06/21/2020 10:17 AM CDT): Remains stable without medication. Assessment & Plan (08/25/2019 3:19 PM CDT): Remains stable without medication. Assessment & Plan (03/05/2019 9:51 AM CDT): Stable without medication. Assessment & Plan (10/22/2018 2:06 PM RETAIL TEAM LEADER): Stable without medication. Assessment & Plan (07/15/2018 9:35 PM CDT): Declines need for medication Assessment & Plan (02/05/2018 5:51 PM CDT): Stable without medication. Edema of both legs 08/02/2017 Assessment & Plan (11/30/2021 5:50 PM RETAIL TEAM LEADER): Secondary to lynphedema. Chronic, stable. ProBNP is normal. Follows with Dr. Baeza as outpatient. Assessment & Plan (10/29/2020 2:25 PM RETAIL TEAM LEADER): He knows to be more compliant with his lymph edema press. Continue current diuretics. Assessment & Plan (08/25/2019 3:18 PM CDT): Continue furosemide. Lose weight. Follow up with the lymphedema clinic as they direct. Assessment & Plan (03/05/2019 9:56 AM CDT): Continue furosemide daily. If worsens increase to b.i.d. As needed. Continue compression stockings. Keep legs elevated. Reduce sodium intake. Currently much improved compared to his visits in January. Assessment & Plan (03/21/2018 4:14 PM CDT): Continue with diuretic therapy if chlorthalidone as well as furosemide as previously prescribed. We did discuss increasing diuretic therapy but at this time were going to try more conservative management to try and reduce the swelling in legs elevating legs at heart level or above, find some sequential stockings [id number] to see if that can assist with the lower extremity swelling and close monitoring of salt intake. Follow up next week for re-evaluation Assessment & Plan (02/05/2018 5:51 PM CDT): Improved with chlorthalidone and Lasix. Assessment & Plan (08/02/2017 2:53 PM CDT): Continue Lasix started in the hospital and potassium level normal. Hypertension, essential 09/11/2016 Overview (02/15/2017): HYPERTENSION NOS Assessment & Plan (09/18/2024 7:54 PM RETAIL TEAM LEADER): BP at goal 110/70. Continue present medications. Assessment & Plan (06/25/2024 12:57 PM CDT): Stable, well controlled, blood pressure goal; no chest pain or pressure; no headaches Continue carvedilol 6.25 mg daily Assessment & Plan (01/18/2024 11:05 AM RETAIL TEAM LEADER): Blood pressure well controlled on carvedilol, chlorthalidone, lisinopril Assessment & Plan (07/10/2023 2:31 PM CDT): Blood pressure well controlled on carvedilol, chlorthalidone, lisinopril Assessment & Plan (01/08/2023 1:39 PM RETAIL TEAM LEADER): Blood pressure well controlled on chlorthalidone, lisinopril Assessment & Plan (07/10/2022 1:40 PM CDT): Well controlled on the current regimen. Avoidance of salt, proper body weight, and routine exercise recommended. Assessment & Plan (02/23/2022 1:55 PM CDT): Well controlled on the current regimen. Avoidance of salt, proper body weight, and routine exercise recommended. Assessment & Plan (12/09/2021 10:30 AM RETAIL TEAM LEADER): Well controlled on the current regimen. Avoidance of salt, proper body weight, and routine exercise recommended. Assessment & Plan (11/30/2021 5:49 PM RETAIL TEAM LEADER): Home meds resumed, BP is well controlled. Will hold beta robyn as stress test planned for tomorrow. Continue to monitor. Assessment & Plan (10/24/2021 2:40 PM RETAIL TEAM LEADER): Well controlled on the current regimen. Avoidance of salt, proper body weight, and routine exercise recommended. Consider restarting low-dose lisinopril if micro and creatinine ratio raise in the future. Assessment & Plan (07/07/2021 1:41 PM CDT): Well controlled on the current regimen. Avoidance of salt, proper body weight, and routine exercise recommended. Assessment & Plan (01/06/2021 7:51 PM RETAIL TEAM LEADER): Well controlled on the current regimen. Avoidance of salt, proper body weight, and routine exercise recommended. Assessment & Plan (10/29/2020 2:25 PM RETAIL TEAM LEADER): Continue holding lisinopril. Call back if blood pressures elevate consistently near 140/90 so we can restart lisinopril 5 mg daily. He is to check with licensed practical vocational nurse regarding which beta-robyn he should be on. We may need to cut down his chlorthalidone or furosemide in the future. Assessment & Plan (06/21/2020 10:17 AM CDT): Well controlled on the current regimen. Avoidance of salt, proper body weight, and routine exercise recommended. Assessment & Plan (11/24/2019 11:58 AM RETAIL TEAM LEADER): Well controlled on the current regimen. Avoidance of salt, proper body weight, and routine exercise recommended. Assessment & Plan (08/25/2019 3:18 PM CDT): Well controlled on the current regimen. Avoidance of salt, proper body weight, and routine exercise recommended. Assessment & Plan (07/24/2019 5:00 PM CDT): Reduce lisinopril to 5 mg daily and continue other medications as prescribed. Assessment & Plan (05/04/2019 2:10 PM CDT): Well controlled on the current regimen. Avoidance of salt, proper body weight, and routine exercise recommended. Assessment & Plan (03/05/2019 9:50 AM CDT): Well controlled on the current regimen. Avoidance of salt, proper body weight, and routine exercise recommended. Assessment & Plan (10/22/2018 2:06 PM RETAIL TEAM LEADER): Well controlled on the current regimen. Avoidance of salt, proper body weight, and routine exercise recommended. Assessment & Plan (07/15/2018 9:34 PM CDT): Well controlled on the current regimen. Avoidance of salt, proper body weight, and routine exercise recommended. Assessment & Plan (02/05/2018 5:51 PM CDT): Well controlled on the current regimen. Avoidance of salt, proper body weight, and routine exercise recommended. Assessment & Plan (08/02/2017 2:51 PM CDT): Well controlled on the current regimen. Avoidance of salt, proper body weight, and routine exercise recommended. Hyperlipidemia 09/11/2016 Overview (02/16/2017): HYPERLIPIDEMIA NEC/NOS Assessment & Plan (01/18/2024 11:05 AM RETAIL TEAM LEADER): Well controlled on current therapy and will check a lipid panel and LFTs in 6 months. Assessment & Plan (07/10/2023 2:31 PM CDT): Well controlled on current therapy and will check a lipid panel and LFTs in 6 months. Assessment & Plan (01/08/2023 1:39 PM RETAIL TEAM LEADER): Well controlled on current therapy and will check a lipid panel and LFTs in 6 months. Assessment & Plan (07/10/2022 1:40 PM CDT): Well controlled on current therapy and will check a lipid panel and LFTs in 6 months. Assessment & Plan (02/23/2022 1:55 PM CDT): Well controlled on current therapy and will check a lipid panel and LFTs in 6 months. Assessment & Plan (12/09/2021 10:31 AM RETAIL TEAM LEADER): Continue his atorvastatin check lipids and LFTs before next visit. Assessment & Plan (10/24/2021 2:40 PM RETAIL TEAM LEADER): Well controlled on current therapy and will check a lipid panel and LFTs in 6 months. Assessment & Plan (07/07/2021 1:41 PM CDT): Well controlled on current therapy and will check a lipid panel and LFTs in 6 months. Assessment & Plan (01/06/2021 7:51 PM RETAIL TEAM LEADER): Well controlled on current therapy and will check a lipid panel and LFTs in 6 months. Assessment & Plan (06/21/2020 10:17 AM CDT): Well controlled on current therapy and will check a lipid panel and LFTs in 6 months. Assessment & Plan (08/25/2019 3:18 PM CDT): Well controlled on current therapy and will check a lipid panel and LFTs in 6 months. Assessment & Plan (03/05/2019 9:50 AM CDT): Well controlled on current therapy and will check a lipid panel and LFTs in 4 months. Assessment & Plan (10/22/2018 2:06 PM RETAIL TEAM LEADER): Well controlled on current therapy and will check a lipid panel and LFTs in 6 months. Assessment & Plan (07/15/2018 9:35 PM CDT): Well controlled on current therapy and will check a lipid panel and LFTs in 4months. Assessment & Plan (02/05/2018 5:51 PM CDT): Well controlled on current therapy and will check a lipid panel and LFTs in 6 months. Assessment & Plan (08/02/2017 2:51 PM CDT): Well controlled on current therapy and will check a lipid panel and LFTs in 6 months. 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 03/28/2014 Overview (02/15/2017): COR ATH UNSP VSL NTV/GFT Assessment & Plan (06/25/2024 12:56 PM CDT): Stable, well controlled, catheterization in 2021 Continue ASA 81 mg daily, atorvastatin 40 mg daily, carvedilol 6.25 mg b.i.d., Imdur 60 mg daily Assessment & Plan (01/18/2024 11:04 AM RETAIL TEAM LEADER): Continue continue current medication regimen follow up with his licensed practical vocational nurse as they direct Assessment & Plan (07/10/2023 2:30 PM CDT): Continue current medication regimen and follow up with his licensed practical vocational nurse as they direct Assessment & Plan (07/10/2022 1:40 PM CDT): Continue current medication regimen follow up with licensed practical vocational nurse as they direct Assessment & Plan (12/09/2021 10:30 AM RETAIL TEAM LEADER): Recent catheterization without need for intervention. Continue current medication regimen and follow up with licensed practical vocational nurse as they direct. Assessment & Plan (07/07/2021 1:41 PM CDT): Continue current medication regimen and follow up with licensed practical vocational nurse as they direct. Assessment & Plan (01/06/2021 7:52 PM RETAIL TEAM LEADER): Continue current medication regimen and follow up with licensed practical vocational nurse as they direct. Assessment & Plan (06/21/2020 10:18 AM CDT): Continue current medication regimen follow up with licensed practical vocational nurse as they direct. Assessment & Plan (11/14/2019 1:50 PM RETAIL TEAM LEADER): Pt currently denies any chest pain or shortness of breath Assessment & Plan (08/25/2019 3:19 PM CDT): Continue aspirin, atorvastatin, carvedilol, isosorbide mononitrate, lisinopril, Xarelto and follow up with licensed practical vocational nurse as they direct. Assessment & Plan (05/04/2019 2:10 PM CDT): Continue aspirin, atorvastatin, carvedilol, isosorbide mononitrate, lisinopril and follow up with licensed practical vocational nurse as they direct. I Have asked him to get a copy of his most recent stress test. Assessment & Plan (03/05/2019 9:51 AM CDT): Continue aspirin, atorvastatin, carvedilol, isosorbide mononitrate, lisinopril, follow up Cardiology as they direct. Assessment & Plan (07/15/2018 9:34 PM CDT): Continue nitroglycerin p.r.n., lisinopril, isosorbide mononitrate, carvedilol, atorvastatin, aspirin follow up Cardiology as they direct. Assessment & Plan (02/05/2018 5:50 PM CDT): Continue aspirin, atorvastatin, carvedilol, isosorbide mononitrate, lisinopril, nitroglycerin p.r.n. and follow up with his licensed practical vocational nurse as they direct Assessment & Plan (08/02/2017 2:51 PM CDT): Continue current medication regimen and follow up with licensed practical vocational nurse as he directs. Degeneration of intervertebral disc of cervical region 03/28/2014 Overview (02/15/2017): DDD (degenerative disc disease), cervical History of prostate cancer 03/28/2014 Overview (02/05/2018): Davinci prostatectomy [address] saucedo. Assessment & Plan (01/18/2024 11:05 AM RETAIL TEAM LEADER): Recommend PSA checks once yearly. Assessment & Plan (07/10/2023 2:31 PM CDT): PSA remains undetectable and will check again 1 year. Assessment & Plan (10/24/2021 2:40 PM RETAIL TEAM LEADER): PSA undetectable. Assessment & Plan (07/07/2021 1:41 PM CDT): He is no longer following with his urologist and there for will check a PSA before next visit. Assessment & Plan (06/21/2020 10:17 AM CDT): Follow-up with his urologist for ALONZO and PSA as they direct. Assessment & Plan (03/05/2019 9:50 AM CDT): Follow-up with his urologist for PSAs and ALONZO's as they direct. Assessment & Plan (02/05/2018 5:51 PM CDT): Followed by his urologist for PSAs and ALONZO is. Gastroesophageal reflux disease 03/28/2014 Overview (02/17/2017): ESOPHAGEAL REFLUX Assessment & Plan (06/25/2024 12:57 PM CDT): Stable, well controlled, no major issues at this time Assessment & Plan (02/05/2018 5:51 PM CDT): Well controlled without medication currently. Atopic rhinitis 03/13/2014 Overview (02/15/2017): Allergic rhinitis Assessment & Plan (02/05/2018 5:50 PM CDT): Claritin p.r.n. Carpal tunnel syndrome 07/18/2012 Overview (02/15/2017): Carpal tunnel syndrome Periodic limb movement disorder 07/18/2012 Overview (02/16/2017): Periodic limb movement disorder History of SCC (squamous cell carcinoma) of skin 04/05/2012 Obstructive sleep apnea syndrome 01/11/2012 Overview (02/15/2017): Obstructive sleep apnea syndrome Assessment & Plan (06/25/2024 12:56 PM CDT): Stable, patient to follow up with sleep medicine Assessment & Plan (07/10/2023 2:32 PM CDT): Patient is compliant with the CPAP machine and gets symptomatic relief. Assessment & Plan (07/07/2021 1:41 PM CDT): Patient is compliant with the CPAP machine and gets symptomatic relief. Assessment & Plan (06/21/2020 10:16 AM CDT): Patient is compliant with the CPAP machine and gets symptomatic relief. Assessment & Plan (08/25/2019 3:18 PM CDT): Patient is compliant with the CPAP machine and gets symptomatic relief. Assessment & Plan (02/05/2018 5:50 PM CDT): Patient is compliant with the CPAP machine and gets symptomatic relief. Assessment & Plan (08/02/2017 2:50 PM CDT): Patient is compliant with the CPAP machine and gets symptomatic relief. 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 Check a yearly diabetic eye exam and blood sugars daily. Monofilament testing is intact. Patient will be following up with Dr. Pearce for primary care going forward and would recommend labs to be done after next visit. Assessment & Plan (07/10/2023 2:33 PM CDT): A1c, LDL, and blood pressure currently well controlled on current regimen. Check a yearly diabetic eye exam and blood sugars daily. Monofilament testing is abnormal. Assessment & Plan (01/08/2023 1:38 PM RETAIL TEAM LEADER): A1c, LDL, and blood pressure currently well controlled on current regimen. Check a yearly diabetic eye exam and blood sugars daily. Monofilament testing is abnormal. Assessment & Plan (07/10/2022 1:39 PM CDT): A1c, LDL, and blood pressure currently well controlled on current regimen. Check a yearly diabetic eye exam and blood sugars daily. Monofilament testing is intact. Assessment & Plan (02/23/2022 1:55 PM CDT): A1c, LDL, and blood pressure currently well controlled on current regimen. Check a yearly diabetic eye exam and blood sugars daily. Monofilament testing is abnormal. Assessment & Plan (11/30/2021 5:48 PM RETAIL TEAM LEADER): On Metformin and Trulicity at home. Here initiated on insulin basal bolus regimen per hospital protocol. Monitor accuchecks on SSI, titrate regimen as needed. Assessment & Plan (10/24/2021 2:40 PM RETAIL TEAM LEADER): A1c, LDL, and blood pressure currently well controlled on current regimen. Check a yearly diabetic eye exam and blood sugars daily. Monofilament testing is intact. Assessment & Plan (07/07/2021 1:41 PM CDT): A1c up trending and we discussed importance of diet exercise and weight loss. Continue his metformin Trulicity and repeat A1c before next visit. Assessment & Plan (01/06/2021 7:51 PM RETAIL TEAM LEADER): A1c, LDL, and blood pressure currently well controlled on current regimen. Check a yearly diabetic eye exam and blood sugars daily. Monofilament testing is abnormal. Assessment & Plan (06/21/2020 10:16 AM CDT): A1c, LDL, and blood pressure currently well controlled on current regimen. Check a yearly diabetic eye exam and blood sugars daily. Monofilament testing is abnormal. Assessment & Plan (08/25/2019 3:18 PM CDT): A1c, LDL, and blood pressure currently well controlled on current regimen. Check a yearly diabetic eye exam and blood sugars daily. Monofilament testing is abnormal. Assessment & Plan (07/24/2019 5:00 PM CDT): Patient denies any symptoms of hypoglycemia and should continue his metformin and Trulicity for now. Assessment & Plan (05/04/2019 2:09 PM CDT): A1c, LDL, and blood pressure currently well controlled on current regimen. Check a yearly diabetic eye exam and blood sugars daily. Take a daily aspirin. Monofilament testing is intact. Assessment & Plan (03/05/2019 9:49 AM CDT): A1c, LDL, and blood pressure currently well controlled on current regimen. Check a yearly diabetic eye exam and blood sugars daily. Take a daily aspirin. Monofilament testing is abnormal. . Assessment & Plan (10/22/2018 2:06 PM RETAIL TEAM LEADER): A1c, LDL, and blood pressure currently well controlled on current regimen. Check a yearly diabetic eye exam and blood sugars daily. Take a daily aspirin. Monofilament testing is abnormal. Assessment & Plan (07/15/2018 9:34 PM CDT): A1c, LDL, and blood pressure currently well controlled on current regimen. Check a yearly diabetic eye exam and blood sugars daily. Take a daily aspirin. Monofilament testing is abnormal.. Assessment & Plan (03/21/2018 4:13 PM CDT): Last A1c was 7.12 months ago in January to which patient does not check his sugars at this time I did recommend him keeping a close eye on glucose levels due to acute cellulitic infection. Continue on new dose of [place], metformin and I advised him to give us a call if his numbers are exceedingly higher than 180 or signs of hyperglycemia present Assessment & Plan (02/05/2018 5:52 PM CDT): Increase Trulicity to 1.5 milligrams daily. Consider Jardiance at next visit if no improvement. Continue aspirin atorvastatin and lisinopril. Monofilament testing abnormal. Denies any for medication. Assessment & Plan (08/02/2017 2:52 PM CDT): A1c, LDL, and blood pressure currently well controlled on current regimen. Check a yearly diabetic eye exam and blood sugars daily. Take a daily aspirin. Monofilament testing is abnormal. Resolved Problems Problem Noted Date Diagnosed Date Resolved Date Hypokalemia 03/04/2024 05/05/2025 Acute chest pain 11/29/2021 05/05/2025 Assessment & Plan (12/09/2021 10:30 AM RETAIL TEAM LEADER): No recurrences since discharge. Unremarkable coronary catheterization. Follow up Cardiology as they direct. Assessment & Plan (11/30/2021 5:47 PM RETAIL TEAM LEADER): Pt with significant cardiac history, presenting with typical chest pain, however EKG and troponins negative. Chest wall tender to palpation. ECHO noted with a normal EF, and no focal wall motion abnormalities. Doubt ACS, but given risk factors, cardiology consulted, planned for Lexiscan stress test tomorrow. Continue aspirin, statin. Continue telemetry monitoring. BMI 40.0-44.9, adult 08/02/2017 018 Assessment & Plan (08/02/2017 2:52 PM CDT): See above Diabetes mellitus type 2 in obese 03/28/2014 08/02/2017 Overview (02/15/2017): Diabetes mellitus type 2 in obese Morbid obesity 01/11/2012 02/05/2018 Overview (02/15/2017): Morbid obesity Assessment & Plan (08/02/2017 2:51 PM CDT): Patient is encouraged to lose weight with a combination of caloric reduction and increased exercise. Various strategies discussed. The long-term risks associated with continued morbid obesity discussed. Hypersomnia with sleep apnea 01/11/2012 08/02/2017 Overview (02/17/2017): Hypersomnia with sleep apnea Cellulitis 06/21/2020 Encounters Date Type Department Care Team Description 05/08/2025 2:54 PM CDT - 05/08/2025 11:59 PM CDT Hospital Encounter [facility] Emergency, Room R Discharge Disposition: Discharge to home or self care 05/03/2025 8:53 AM CDT - 05/08/2025 2:44 PM CDT Hospital Encounter [place] [id number] Bob Albert MD Nikolic, Jelena, MD Kheirkhahan, Nazanin, MD Masetti, Paolo, MD [place]on[place]wo, Kasiemobi Bernice, MD Fasick, Victoria Rose, Sepsis without acute organ dysfunction, due to unspecified organism (HCC) (Primary Dx); Cellulitis and abscess of right leg; Contact dermatitis and eczema; Severe Alzheimer's dementia without behavioral disturbance, psychotic disturbance, mood disturbance, or anxiety, unspecified timing of dementia onset (HCC); Edema of both legs Discharge Disposition: Discharge to SNF 05/03/2025 8:17 AM CDT Hospital Encounter [facility] 04/14/2025 1:30 PM CDT Office Visit [facility] [address] [place] [address] Bernard Martinez MD Paroxysmal atrial fibrillation (HCC) (Primary Dx) 02/25/2025 8:00 AM CDT Ancillary Procedure [facility] [id number] [facility] [address] [place] [address] SSS (sick sinus syndrome) (HCC); Cardiac pacemaker in situ; Paroxysmal atrial fibrillation (HCC) from Last 3 Months Immunizations Immunization Administration Dates Next Due Influenza, Quad, Adjuvantate d, Intramuscular 09/25/2022 Influenza, Quadrivalent, Hig h Dose, Preservative Free, Intrr 09/14/2023,07/10/2023(Deferred: Patient Refused),06/12/2023(Deferred: Patient Refused),12/02/2021 Influenza, Quadrivalent, Spl it, Preservative Free, Intramuscular 08/06/2014 Influenza, Split 08/29/2010,09/09/2009 Influenza, Trivalent, High D ose, Split, Preservative Free, Intramuscular 09/09/2024,08/25/2019,10/22/2018,08/02,09/26/2016 Influenza, Trivalent, IM (MDV) 4,08/12/2013,08/28/2012,08/15 Influenza, Unspecified 09/08/2020,2019(Deferred: Patient Refused),08/25/2019(Deferred: Patient Refused),07/15/2019(Deferred: Patient Refused) PPD TEST 03/17/2024,03/07/2024 Pfizer SARS-CoV-2 Monovalent Vaccination (12+ Yrs) PURPLE 02/26/2021,01/26/2021 Pneumococcal Conjugate PCV 13 01/13/2016 Pneumococcal Polysaccharide PPV23 09/02/2014,,04/27/2010 Td, adsorbed 07/06/2009 Surgical History Surgery Date Site/Laterality Comments OTHER SURGICAL HISTORY chest pain -2009: [facility] OTHER SURGICAL HISTORY MATHEUS: CPAP OTHER SURGICAL HISTORY skin lesion removed head and nose 04/2011: [facility] OTHER SURGICAL HISTORY R Ventricular Thrombus: 6 months coumadin OTHER SURGICAL HISTORY Cancer, basal Cell: Right nasolabial fold excised, 04/22; [facility] OTHER SURGICAL HISTORY prostate biopsy 10-20-11, positive for ca: Dr. 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 Medical History Medical History Date Comments Actinic keratosis Actinic Kerato sis Hx Other Medical -Dermatologis t Hx Other Medical transient compl ete heart block 12/14 matheus Hx Other Medical -cardio Hx Other Medical chest pain - 10 Myocardial infarction (HCC) Myoc ardial infarction Malignant neoplasm of skin Cance r, skin Hypertension Hypertension Diabetes mellitus (HCC) Diabetes Hx Other Medical -neurologist Hx Other Medical MATHEUS Hx Other Medical ND, stents 12/22 Hx Other Medical skin lesion rem angel luis head and nose 04/2011 Hx Other Medical R Ventricular T hrombus Hx Other Medical Basal cell exci sed scalp 2007 Hx Other Medical Squamous cell c arcinoma, scalp 04/22 Superficial basal cell carcinoma Cancer, basal Cell Hx Other Medical prostate biopsy 10-20-11, positive for ca Hx Other Medical Cervical DDD, h erniations, foraminal stenosis Hx Other Medical -urologist Hx Other Medical robotic prostat ectomy 02-14-12 Hx Other Medical Umbilical herni a repair 02-14-12 Hx Other Medical [facility] scalp 04-30 [facility] Hx Other Medical mhos surgery-he ad Hx Other Medical squamous cell c arcinoma - right cheek Hx Other Medical R hand, left fo rearm basal cell ca scheduled remov Hx Other Medical R cataract extr action 04/2014; L cataract ext Hx Other Medical pacemaker Hx Other Medical Pacer implanted 09-02-14, dr an, due to bradyca Hx Other Medical chest pain Hx Other Medical Fall Hx Other Medical L eye laser lon lam History of Moh's micrographi c surgery for skin cancer June 2017 Scalp, R Temporal, Left arm, Left Ear Type 2 diabetes mellitus (HCC) Sleep apnea CPAP it works f or me; last sleep study couple yrs. ago Coronary artery disease Cardiac Stents x 4 Hyperlipidemia Atrial fibrillation (HCC) Sick sinus syndrome (HCC) Family History Medical History Relation Name Comments Breast cancer Father Cancer, breast ; Lung cancer Father Cancer -lung; Diabetes Mother Diabetes mellit us; Heart failure Mother Congestive hea rt failure; Stroke Mother Stroke; Cancer Other 1 Family history of Cancer, unknown; Diabetes Other 2 Family history of Diabetes mellitus; Hypertension Other 3 Family history of Hypertension; Stroke Other 4 Family history of Stroke; Heart attack Sister 1 Myocardial infa rction; Stroke Sister 2 Stroke; Other Neg Hx No history of C ancer, colon; Relation Name Status Comments Father Mother Other 1 Other 2 Other 3 Other 4 Sister 1 Sister 2 Social History Tobacco Use Types Packs/Day Years Used Date Smoking Tobacco: Never Smokeless Tobacco: Never Tobacco Cessation:Counseling Given: Not Answered Alcohol Use Standard Drinks/Week Comments No 0 (1 standard drink = 0.6 oz pur e alcohol) [facility] Chatterousities Answer Date Recorded In the past 12 months has [employer] oil, or water [employer] threatened to shut off services in your home? No 05/04/2025 Social Connection and Isolation Panel [NHANES] A nswer Date Recorded In a typical week, how many times do you talk on the phone with family, friends, or neighbors? Once a week 05/04/2025 How often do you get together with friends or re latives? Once a week 05/04/2025 How often do you attend anabaptism or oriental orthodox serv ices? Never 05/04/2025 Do you belong to any clubs o r organizations such as anabaptism groups, unions, fraternal or athletic groups, or school groups? No 05/04/2025 How often do you attend meet ings of the clubs or organizations you belong to? Never 05/04/2025 Are you , , di vorced, , never , or living with a partner? 05/04/2025 AUDIT-C Answer Date Recorded Q1: How often do you have a drink containing alcohol? Never 01/01/2025 Q2: How many drinks containi ng alcohol do you have on a typical day when you are drinking? Patient does not drink Q3: How often do you have si x or more drinks on one occasion? Never 01/01/2025 Overall Financial Resource Strain (CARDIA) Answe r Date Recorded How hard is it for you to pa y for the very basics like food, housing, medical care, and heating? Not hard at all 05/04/2025 PHQ-2 Answer Date Recorded PHQ-2 Total Score (If total score is 3 or more points, staff should administer the PHQ-9) 0 01/18/2024 Hunger Vital Sign Answer Date Recorded Within the past 12 months, y ou worried that your food would run out before you got the money to buy more. Never true 05/04/20 25 Within the past 12 months, t he food you bought just didn't last and you didn't have money to get more. Never true 05/04/2025 PRAPARE - Transportation Answer Date Re corded In the past 12 months, has l ack of transportation kept you from medical appointments or from getting medications? No 04/13 In the past 12 months, has l ack of transportation kept you from meetings, work, or from getting things needed for daily living? No 05/04/2025 Housing Stability Vital Sign Answer Damien e Recorded In the last 12 months, was t here a time when you were not able to pay the mortgage or rent on time? No 03/04/2024 In the last 12 months, how many places have you lived? 1 03/04/2024 In the last 12 months, was t here a time when you did not have a steady place to sleep or slept in a correction (including now)? No 03/04/2024 Housing Stability Vital Sign Answer Damien e Recorded In the last 12 months, was t here a time when you were not able to pay the mortgage or rent on time? No 05/04/2025 In the past 12 months, how m any times have you moved where you were living? 0 05/04/2025 At any time in the past 12 m [facility], were you homeless or living in a correction (including now)? No 05/04/2025 Personal Safety Answer Date Recorded Have you ever been in or are you currently in a harmful physical or emotional relationship or is someone making you feel afraid or unsafe? Denies 05/03/2025 Education Answer Date Recorded What is the highest level of school you have completed or the highest degree you have received? Associate degree: academic program 03/04/2024 Sex and Gender Information Value Date Recorded Sex Assigned at Not on file Legal Sex Male 11:50 PM [employer]AIL TE[employer] Gender Identity Not on file Sexual Orientation Not on file Obstetrics History Last Filed Vital Signs Vital Sign Reading Time Taken Comments Blood Pressure 127/65 05/08/2025 7:45 AM CDT Pulse 68 05/08/2025 7:45 AM CDT Temperature 36.1 C (97 F) 05/08/2025 7:45 AM CDT Respiratory Rate 16 05/08/2025 7:45 AM CDT Oxygen Saturation 100% 05/08/2025 7:45 AM CDT Inhaled Oxygen Concentration - - Weight 129.3 kg (285 lb 0.9 oz) 05/04/2025 4:27 PM CDT Height 182.9 cm (6') 05/04/2025 4:27 PM CDT Body Mass Index 38.66 05/04/2025 4:27 PM CDT Plan of Treatment Health Maintenance Due Date Last Done Comments DTaP/Tdap/Td Vaccine (1 - Tdap) 07/07/2009 07/06/2009 Well Visit 65+ 07/10/2024 07/10/2023, 06/13, 07/07/2021, Additional history exists Covid-19 Vaccine ( season) 2024 02/26/2021, 01/26/2021 Albumin Creatinine Ratio, Urine 01/09/2025 01/10/2024, 06/28/2023, 12/25/2022, Additional history exists Colon Cancer Screening-Colonoscopy 01/15/2025 01/15/2015, 01/15/2015, 01/15/2015 Depression Screening 01/17/2025 01/18/2024, 10/11/2023, 09/14/2023, Additional history exists Foot Exam 01/17/2025 01/18/2024, 12/14, 07/10/2022, Additional history exists Hemoglobin A1C 03/10/2025 09/09/2024, 12/14, 06/28/2023, Additional history exists Influenza Vaccine (#1) 2025 , 09/14/2023, 09/25/2022, Additional history exists Lipid Panel 09/09/2025 09/09/2024, 12/14, 06/28/2023, Additional history exists Prostate Cancer Screening-PSA 09/09/2025 09/09/2024, 06/28/2023, 10/05/2021, Additional history exists Zoster Vaccine (1 of 2) 09/17/2025 Post poned from 1994 (Patient declined, but will receive in the future) Dilated Eye Exam 10/13/2025 10/13/2024, , 04/19/2020, Additional history exists Fall Risk Assessment 05/08/2026 05/08/2025, 06/12/2024, 01/18/2024, Additional history exists eGFR 05/08/2026 05/08/2025, 04/13, 05/06/2025, Additional history exists Pneumococcal vaccine 65+ Completed 016, 09/02/2014, 08/06/2014, Additional history exists Hepatitis B Screening Completed 09/09/2024 Medical Devices Implanted Type Area Flavoring Maker Device Identifier Shelf Expiration Date Model / Serial / Lot Pacemaker Pacemaker Left: Chest Stent Stent N/A: Heart Description:Multiple [employer]/C R Bard [id number] Ventralight St Sepra 8x6in Uncoated Monofilament Lightweight - [id number] Implanted:Qty: 1 on 06/30/2019 by Hany Pereira MD at [facility] N/A: Abdomen [employer] 09/08/2020 [id number] / / [id number] [employer]ig [employer] [id number] Angio-Seal Evolution 6fr .035in Guidewire Bypass Tube Suture - [id number] Implanted:Qty: 1 on 12/02/2021 by Virgen Vallecillo MD at [facility] [employer] 08/11/2022 [id number] / / Procedures Procedure Name Priority Date/Time Associated Diagnosis Comments POCT GLUCOSE DEVICE Routine 05/08/2025 1 1:48 AM CDT POCT GLUCOSE DEVICE Routine 05/08/2025 7 :54 AM CDT EGFR Routine 05/08/2025 4:54 AM CDT DIFFERENTIAL AUTO Routine 05/08/2025 4:5 4 AM CDT PHOSPHORUS Routine 05/08/2025 4:54 AM CDT MAGNESIUM Routine 05/08/2025 4:54 AM CDT COMPREHENSIVE METABOLIC PANEL Routine 05/08/2025 4:54 AM CDT CBC WITH AUTO DIFFERENTIAL Routine 05/08/2025 4:54 AM CDT POCT GLUCOSE DEVICE Routine 05/08/2025 2 :31 AM CDT POCT GLUCOSE DEVICE Routine 05/07/2025 9 :02 PM CDT POCT GLUCOSE DEVICE Routine 05/07/2025 4 :53 PM CDT POCT GLUCOSE DEVICE Routine 05/07/2025 1 1:50 AM CDT DIFFERENTIAL AUTO Routine 05/07/2025 9:3 8 AM CDT CBC WITH AUTO DIFFERENTIAL Routine 05/07/2025 9:38 AM CDT POCT GLUCOSE DEVICE Routine 05/07/2025 7 :37 AM CDT EGFR Routine 05/07/2025 5:13 AM CDT LACTATE Routine 05/07/2025 5:13 AM CDT PHOSPHORUS Routine 05/07/2025 5:13 AM CDT MAGNESIUM Routine 05/07/2025 5:13 AM CDT COMPREHENSIVE METABOLIC PANEL Routine 05/07/2025 5:13 AM CDT POCT GLUCOSE DEVICE Routine 05/07/2025 2 :00 AM CDT POCT GLUCOSE DEVICE Routine 05/06/2025 7 :53 PM CDT POCT GLUCOSE DEVICE Routine 05/06/2025 4 :43 PM CDT POCT GLUCOSE DEVICE Routine 05/06/2025 1 1:29 AM CDT POCT GLUCOSE DEVICE Routine 05/06/2025 7 :51 AM CDT EGFR Routine 05/06/2025 7:31 AM CDT DIFFERENTIAL AUTO Routine 05/06/2025 7:3 1 AM CDT PHOSPHORUS Routine 05/06/2025 7:31 AM CDT MAGNESIUM Routine 05/06/2025 7:31 AM CDT COMPREHENSIVE METABOLIC PANEL Routine 05/06/2025 7:31 AM CDT CBC WITH AUTO DIFFERENTIAL Routine 05/06/2025 7:31 AM CDT POCT GLUCOSE DEVICE Routine 05/06/2025 2 :20 AM CDT POCT GLUCOSE DEVICE Routine 05/05/2025 8 :46 PM CDT POCT GLUCOSE DEVICE Routine 05/05/2025 4 :35 PM CDT SEPSIS LACTATE WITH REFLEX Timed 05/05/2025 2:32 PM CDT SEPSIS LACTATE WITH REFLEX Timed 05/05/2025 11:55 AM CDT POCT GLUCOSE DEVICE Routine 05/05/2025 1 1:32 AM CDT EGFR Timed 05/05/2025 8:56 AM CDT DIFFERENTIAL AUTO Timed 05/05/2025 8:5 6 AM CDT SEPSIS LACTATE WITH REFLEX Routine 05/05/2025 8:56 AM CDT CBC WITH AUTO DIFFERENTIAL Timed 05/05/2025 8:56 AM CDT COMPREHENSIVE METABOLIC PANEL Timed 05/05/2025 8:56 AM CDT PHOSPHORUS Timed 05/05/2025 8:56 AM CDT MAGNESIUM Timed 05/05/2025 8:56 AM CDT POCT GLUCOSE DEVICE Routine 05/05/2025 7 :32 AM CDT POCT GLUCOSE DEVICE Routine 05/05/2025 2 :11 AM CDT POCT GLUCOSE DEVICE Routine 05/04/2025 8 :06 PM CDT POCT GLUCOSE DEVICE Routine 05/04/2025 4 :32 PM CDT BLOOD CULTURE Routine 05/04/2025 12:40 PM CDT LACTATE Routine 05/04/2025 12:29 PM CDT BLOOD CULTURE Routine 05/04/2025 12:29 PM CDT POCT GLUCOSE DEVICE Routine 05/04/2025 1 1:14 AM CDT POCT GLUCOSE DEVICE Routine 05/04/2025 8 :00 AM CDT POCT GLUCOSE DEVICE Routine 05/04/2025 5 :21 AM CDT EGFR Routine 05/04/2025 3:04 AM CDT DIFFERENTIAL AUTO Routine 05/04/2025 3:0 4 AM CDT CBC WITH AUTO DIFFERENTIAL Routine 05/04/2025 3:04 AM CDT COMPREHENSIVE METABOLIC PANEL Routine 05/04/2025 3:04 AM CDT POCT GLUCOSE DEVICE Routine 05/04/2025 1 2:11 AM CDT CRITICAL CARE Routine 05/03/2025 9:36 PM CDT Sepsis without acute organ dysfunction, due to unspecified organism (HCC) POCT GLUCOSE DEVICE Routine 05/03/2025 8 :10 PM CDT POCT GLUCOSE DEVICE Routine 05/03/2025 5 :54 PM CDT INFECTION PREVENTION MRSA ONLY (STAPHYLOCOCCUS AUREUS) PCR Routine 05/03/2025 4:27 PM CDT SEPSIS LACTATE WITH REFLEX Timed 05/03/2025 3:34 PM CDT TROPONIN T HIGH-SENSITIVITY 6-HOUR Timed 05/03/2025 3:34 PM CDT POCT GLUCOSE DEVICE Routine 05/03/2025 2 :11 PM CDT CORTISOL Routine 05/03/2025 1:12 PM CDT THYROID FUNCTION CASCADE Routine 05/03/2025 1:12 PM CDT TROPONIN T HIGH-SENSITIVITY 4-HR Timed 05/03/2025 1:12 PM CDT SEPSIS LACTATE WITH REFLEX Timed 05/03/2025 12:38 PM CDT TROPONIN T HIGH-SENSITIVITY 2-HOUR Timed 05/03/2025 10:58 AM CDT URINALYSIS AND REFLEX TO MICROSCOPIC AND CULTURE STAT 05/03/2025 10:[address] CHEST ABDOMEN PELVIS WO CONTRAST ED 05/03/2025 10:[address] HEAD WO CONTRAST ED 05/03/2025 1 0:24 AM CDT ECG 12-LEAD STAT 05/03/2025 9:25 AM CDT BLOOD CULTURE STAT 05/03/2025 9:22 AM CDT BLOOD CULTURE STAT 05/03/2025 9:11 AM CDT EGFR STAT 05/03/2025 9:10 AM CDT MAGNESIUM Routine 05/03/2025 9:10 AM CDT CRP (ACUTE PHASE) STAT 05/03/2025 9:1 0 AM CDT DIFFERENTIAL AUTO STAT 05/03/2025 9:1 0 AM CDT TROPONIN T HIGH-SENSITIVITY SERIES (BASELINE, 2HR, 4HR, 6HR) STAT 05/03/2025 9:10 AM CDT SEPSIS LACTATE WITH REFLEX STAT 05/03/2025 9:10 AM CDT COMPREHENSIVE METABOLIC PANEL STAT 05/03/2025 9:10 AM CDT CBC WITH AUTO DIFFERENTIAL STAT 05/03/2025 9:10 AM CDT DEVICE CHECK - REMOTE Routine 02/23/2025 2:24 PM CDT SSS (sick sinus syndrome) (HCC) Cardiac pacemaker in situ Paroxysmal atrial fibrillation (HCC) DIABETIC EYE EXAM Routine 10/13/2024 2:0 6 PM [employer]AIL TE[employer] HEMOGLOBIN A1C Routine 09/09/2024 10:07 AM CDT Type 2 diabetes mellitus with diabetic polyneuropathy, without long-term current use of insulin (HCC) LIPID PANEL Routine 09/09/2024 10:07 AM CDT Hypertension, essential PSA SCREEN Routine 09/09/2024 10:07 AM CDT Screening PSA (prostate specific antigen) ALBUMIN CREATININE RATIO, URINE Routine 01/10/2024 8:58 AM RETAIL TE[employer] LE[employer]ER Hypertension, essential Mixed hyperlipidemia Type 2 diabetes mellitus with diabetic polyneuropathy, without long-term current use of insulin (HCC) HM DIABETES FOOT EXAM Routine 01/25/2017 COLONOSCOPY IMAGES 01/15/2015 from Last 3 Months or Most Recently Relevant to Health Maintenance Results * POCT glucose (05/08/2025 11:48 AM CDT) Glucose, POC 135 70 - 199 mg/dL Blood 05/08/2025 11:4 8 AM CDT 05/08/2025 11:48 AM CDT Roseann Cui DO LAB POCT ORDERABLES - DE VICE Final Result [facility] [place] [address] [place] [address] [place] [address] * POCT glucose (05/08/2025 7:54 AM CDT) Glucose, POC 107 70 - 199 mg/dL Blood 05/08/2025 7:54 AM CDT 05/08/2025 7:54 AM CDT Roseann Cui DO LAB POCT ORDERABLES - DE VICE Final Result [facility] ([place]) 1 [facility] [place] [address] * eGFR (05/08/2025 4:54 AM CDT) eGFR 88 >=60 mL/min/1. 73 m2 Comment: Interpretive Data Reference Interval Normal >/= 90 mL/min/1.73m2 Mildly decreased* 60 - 89 mL/min/1.73m2 Mildly to moderately decreased 45 - 59 mL/min/1.73m2 Moderately to severely decreased 30 - 44 mL/min/1.73m2 Severely decreased 15 - 29 mL/min/1.73m2 Kidney Failure < 15 mL/min/1.73m2 *Relative to young adult level Estimated glomerular filtration rate is determined by the 2020 CKD-EPI equation recommended by the National Kidney Foundation (A Unifying Approach to GFR Estimation: Recommendations of the NKF-ASK Task Force on Reassessing the Inclusion of Race in Diagnosing Kidney Disease, JASN 2020). The CKD-EPI equation should not be used for patients with unstable renal function and has not been validated in children and those over 70. Current interpretive data was last reviewed 2021. Blood 05/08/2025 4:54 AM CDT 05/08/2025 5:15 AM CDT us Roseann Cui DO LAB BLOOD ORDERABLES Fin al Result [facility] ([place]) 1 [facility] Department [place] [address] * Differential, auto (05/08/2025 4:54 AM CDT) Pathologist [facility] Neutrophil abs 2.57 1.50 - 6.50 K/cumm Imm gran abs 0.08 0.00 - 0.10 K/cumm [facility] ([place]) Lymphocyte abs 1.13 0.80 - 3.30 K/cumm [facility] ([place]) Monocyte abs 0.47 0.20 - 0.80 K/cumm [facility] ([place]) Eosinophil abs 0.29 0.00 - 0.50 K/cumm [facility] ([place]) Basophil abs 0.02 0.00 - 0.10 K/cumm [facility] ([place]) Neutrophil pct 56.3 % [facility] ([place]) Comment: Interpretive Data Percent cell count reference ranges are not reported, since discordance with absolute values may lead to misinterpretation of CBC data. Current Interpretive Data was last revised on 2018. Imm gran pct 1.8 % [facility] ([place]) Comment: Interpretive Data Percent cell count reference ranges are not reported, since discordance with absolute values may lead to misinterpretation of CBC data. Current Interpretive Data was last revised on 2018. Lymphocyte pct 24.8 % [facility] ([place]) Comment: Interpretive Data Percent cell count reference ranges are not reported, since discordance with absolute values may lead to misinterpretation of CBC data. Current Interpretive Data was last revised on 2018. Monocyte pct 10.3 % [facility] ([place]) Comment: Interpretive Data Percent cell count reference ranges are not reported, since discordance with absolute values may lead to misinterpretation of CBC data. Current Interpretive Data was last revised on 2018. Eosinophil pct 6.4 % [facility] ([place]) Comment: Interpretive Data Percent cell count reference ranges are not reported, since discordance with absolute values may lead to misinterpretation of CBC data. Current Interpretive Data was last revised on 2018. Basophil pct 0.4 % [facility] ([place]) Comment: Interpretive Data Percent cell count reference ranges are not reported, since discordance with absolute values may lead to misinterpretation of CBC data. Current Interpretive Data was last revised on 2018. Blood 05/08/2025 4:54 AM CDT 05/08/2025 5:02 AM CDT Roseann Cui DO LAB BLOOD ORDERABLES Fin al Result [facility] ([place]) 1 [facility] Department [place] [address] * (ABNORMAL) CBC with auto differential (05/08/2025 4:54 AM CDT) WBC 4.56 3.80 - 9.90 K/cumm Hgb 11.1(L) 13.0 - 17.5 g/dL [facility] ([place]) Hct 33.4(L) 38.9 - 50.3 % [facility] ([place]) Plt 77(L) 150 - 400 K/cumm [facility] ([place]) MPV 10.1 9.1 - 12.3 fL [facility] ([place]) RBC 3.66(L) 4.30 - 5.80 M/cumm [facility] ([place]) MCV 91.3 81.3 - 96.4 fL [facility] ([place]) MCH 30.3 27.1 - 33.3 pg [facility] ([place]) MCHC 33.2 32.3 - 35.7 g/dL [facility] ([place]) RDW CV 17.3(H) 11.1 - 14.9 % [facility] ([place]) RDW SD 58.8(H) 35.7 - 48.1 fL [facility] ([place]) NRBC abs 0.00 0.00 - 0.01 K/cumm [facility] ([place]) Blood 05/08/2025 4:54 AM CDT 05/08/2025 5:02 AM CDT Roseann Cui DO LAB BLOOD ORDERABLES Fin al Result [facility] ([place]) 1 [facility] [place] [address] * Phosphorus (05/08/2025 4:54 AM CDT) Phosphorus, pl 2.5 2.3 - 4.5 mg/dL Blood 05/08/2025 4:54 AM CDT 05/08/2025 5:15 AM CDT Roseann Aguila [place] DO LAB BLOOD ORDERABLES Fin al Result [facility] ([place]) 1 [facility] [place] [address] * Magnesium (05/08/2025 4:54 AM CDT) Magnesium 1.8 1.4 - 2.5 mg/dL Blood 05/08/2025 4:54 AM CDT 05/08/2025 5:15 AM CDT us Roseann Cui DO LAB BLOOD ORDERABLES Fin al Result [facility] ([place]) 1 [facility] Department [place] [address] * (ABNORMAL) Comprehensive metabolic panel (05/08/2025 4:54 AM CDT) Sodium 137 135 - 145 mmol/L Potassium, pl 3.7 3.3 - 4.9 mmol/L [facility] ([place]) Chloride 105 97 - 110 mmol/L [facility] ([place]) CO2 24 22 - 32 mmol/L [facility] ([place]) Anion gap 8 2 - 15 mmol/L [facility] ([place]) BUN 15 6 - 25 mg/dL [facility] ([place]) Creatinine 0.84 0.80 - 1.30 mg/dL [facility] ([place]) Glucose 125 70 - 199 mg/dL [facility] ([place]) Comment: Interpretive Data Fasting glucose >/= 126 mg/dl is diagnostic for diabetes. Fasting is defined as no caloric intake for at least 8 hours. Fasting glucose between 100 mg/dl to 125 mg/dl is diagnostic of prediabetes. In a patient with classic symptoms of hyperglycemia or hyperglycemic crisis, a random glucose >/= 200 mg/dl is diagnostic for diabetes. In the absence of unequivocal hyperglycemia, results should be confirmed by repeat testing. The classification and Diagnosis of Diabetes Diabetes Care 202; 46: S19-S40. Current interpretive data was last revised 2022. Calcium 8.1(L) 8.5 - 10.3 mg/dL [facility] ([place]) Bilirubin, total 0.8 0.1 - 1.2 mg/dL [facility] ([place]) Protein, pl 6.2(L) 6.5 - 8.5 g/dL [facility] ([place]) Albumin 2.4(L) 3.5 - 5.0 g/dL [facility] ([place]) Alk phos 89 40 - 130 Units/L [facility] ([place]) ALT 34 7 - 55 Units/L [facility] ([place]) AST 47 10 - 50 Units/L [facility] ([place]) Blood 05/08/2025 4:54 AM CDT 05/08/2025 5:15 AM CDT Roseann Cui LAB BLOOD ORDERABLES Fin al Result Performing Organization Address [facility]/ZIP Co de Phone Number [facility] ([place]) 1 [facility] [place] [address] * POCT glucose (05/08/2025 2:31 AM CDT) Glucose, POC 120 70 - 199 mg/dL Blood 05/08/2025 2:31 AM CDT 05/08/2025 2:31 AM CDT Roseann Cui LAB POCT ORDERABLES - DE VICE Final Result Performing Organization Address [facility] Co de Phone Number [facility] ([place]) 1 [facility] [place] [address] * POCT glucose (05/07/2025 9:02 PM CDT) Glucose, POC 139 70 - 199 mg/dL Blood 05/07/2025 9:02 PM CDT 05/07/2025 9:02 PM CDT Roseann Ayla Lynnchica DO LAB POCT ORDERABLES - DE VICE Final Result Performing Organization Address [facility] Co de Phone Number [facility] ([place]) 1 [facility] [place] [address] * POCT glucose (05/07/2025 4:53 PM CDT) Glucose, POC 115 70 - 199 mg/dL Blood 05/07/2025 4:53 PM CDT 05/07/2025 4:53 PM CDT Roseann Cui DO LAB POCT ORDERABLES - DE VICE Final Result [facility] ([place] 1 [facility] [place] [address] * POCT glucose (05/07/2025 11:50 AM CDT) Glucose, POC 169 70 - 199 mg/dL Blood 05/07/2025 11:5 0 AM CDT 05/07/2025 11:50 AM CDT Roseann Cui DO LAB POCT ORDERABLES - DE VICE Final Result Performing Organization Address City/[facility]/ZIP Co de Phone Number [facility] ([place]) 1 [facility] [place] [address] * Differential, auto (05/07/2025 9:38 AM CDT) Neutrophil abs 2.13 1.50 - 6.50 K/cumm Imm gran abs 0.04 0.00 - 0.10 K/cumm [facility] ([place]) Lymphocyte abs 0.86 0.80 - 3.30 K/cumm [facility] ([place]) Monocyte abs 0.40 0.20 - 0.80 K/cumm [facility] ([place]) Eosinophil abs 0.17 0.00 - 0.50 K/cumm [facility] ([place]) Basophil abs 0.01 0.00 - 0.10 K/cumm [facility] ([place]) Neutrophil pct 59.0 % [facility] ([place]) Comment: Interpretive Data Percent cell count reference ranges are not reported, since discordance with absolute values may lead to misinterpretation of CBC data. Current Interpretive Data was last revised on 2018. Imm gran pct 1.1 % [facility] ([place]) Comment: Interpretive Data Percent cell count reference ranges are not reported, since discordance with absolute values may lead to misinterpretation of CBC data. Current Interpretive Data was last revised on 2018. Lymphocyte pct 23.8 % [facility] ([place]) Comment: Interpretive Data Percent cell count reference ranges are not reported, since discordance with absolute values may lead to misinterpretation of CBC data. Current Interpretive Data was last revised on 2018. Monocyte pct 11.1 % [facility] ([place]) Comment: Interpretive Data Percent cell count reference ranges are not reported, since discordance with absolute values may lead to misinterpretation of CBC data. Current Interpretive Data was last revised on 2018. Eosinophil pct 4.7 % [facility] ([place]) Comment: Interpretive Data Percent cell count reference ranges are not reported, since discordance with absolute values may lead to misinterpretation of CBC data. Current Interpretive Data was last revised on 2018. Basophil pct 0.3 % [facility] ([place]) Comment: Interpretive Data Percent cell count reference ranges are not reported, since discordance with absolute values may lead to misinterpretation of CBC data. Current Interpretive Data was last revised on 2018. Blood 05/07/2025 9:38 AM CDT 05/07/2025 9:43 AM CDT us Roseann Cui DO LAB BLOOD ORDERABLES Fin al Result [facility] ([place]) 1 [facility] Department of Laboratories [place], [place] [id number] * (ABNORMAL) CBC with auto differential (05/07/2025 9:38 AM CDT) WBC 3.61(L) 3.80 - 9.90 K/cumm Hgb 10.9(L) 13.0 - 17.5 g/dL [facility] ([place]) Hct 31.8(L) 38.9 - 50.3 % [facility] ([place]) Plt 68(L) 150 - 400 K/cumm [facility] ([place]) MPV 10.8 9.1 - 12.3 fL [facility] ([place]) RBC 3.47(L) 4.30 - 5.80 M/cumm [facility] ([place]) MCV 91.6 81.3 - 96.4 fL [facility] ([place]) MCH 31.4 27.1 - 33.3 pg [facility] ([place]) MCHC 34.3 32.3 - 35.7 g/dL [facility] ([place]) RDW CV 17.8(H) 11.1 - 14.9 % [facility] ([place]) RDW SD 59.4(H) 35.7 - 48.1 fL [facility] ([place]) NRBC abs 0.00 0.00 - 0.01 K/cumm [facility] ([place]) Blood 05/07/2025 9:38 AM CDT 05/07/2025 9:43 AM CDT Narrative [facility] ([place]) - 05/07/2025 9:46 AM CDT Reorder, morning draw was hemolyzed Roseann Cui DO LAB BLOOD ORDERABLES Fin al Result Performing Organization Address City/[facility]/ZIP Co de Phone Number [facility] ([place]) 1 [facility] [place] [address] * POCT glucose (05/07/2025 7:37 AM CDT) Glucose, POC 108 70 - 199 mg/dL Blood 05/07/2025 7:37 AM CDT 05/07/2025 7:37 AM CDT Roseann Cui DO LAB POCT ORDERABLES - DE VICE Final Result Performing Organization Address City/[facility]/ZIP Co de Phone Number [facility] ([place]) 1 [facility] [place] [address] * (ABNORMAL) Lactate (05/07/2025 5:13 AM CDT) Lactate 2.1(H) 0.7 - 2.0 mmol/L Blood 05/07/2025 5:13 AM CDT 05/07/2025 5:29 AM CDT Mi Colon MD LAB BLOOD ORDERABLES Fi nal Result [facility] ([place]) 1 [facility] [place] [address] * eGFR (05/07/2025 5:13 AM CDT) eGFR 89 >=60 mL/min/1. 73 m2 Comment: Interpretive Data Reference Interval Normal >/= 90 mL/min/1.73m2 Mildly decreased* 60 - 89 mL/min/1.73m2 Mildly to moderately decreased 45 - 59 mL/min/1.73m2 Moderately to severely decreased 30 - 44 mL/min/1.73m2 Severely decreased 15 - 29 mL/min/1.73m2 Kidney Failure < 15 mL/min/1.73m2 *Relative to young adult level Estimated glomerular filtration rate is determined by the 2020 CKD-EPI equation recommended by the National Kidney Foundation (A Unifying Approach to GFR Estimation: Recommendations of the NKF-ASK Task Force on Reassessing the Inclusion of Race in Diagnosing Kidney Disease, JASN 2020). The CKD-EPI equation should not be used for patients with unstable renal function and has not been validated in children and those over 70. Current interpretive data was last reviewed 2021. Blood 05/07/2025 5:13 AM CDT 05/07/2025 5:40 AM CDT Roseann Cui DO LAB BLOOD ORDERABLES Fin al Result Performing Organization Address [facility] Co de Phone Number [facility] ([place]) 1 [facility] [place] [address] * Phosphorus (05/07/2025 5:13 AM CDT) Phosphorus, pl 2.4 2.3 - 4.5 mg/dL Blood 05/07/2025 5:13 AM CDT 05/07/2025 5:40 AM CDT Roseann Cui DO LAB BLOOD ORDERABLES Fin al Result [facility] ([place]) 1 [facility] [place] [address] * Magnesium (05/07/2025 5:13 AM CDT) Magnesium 1.7 1.4 - 2.5 mg/dL Blood 05/07/2025 5:13 AM CDT 05/07/2025 5:40 AM CDT Roseann Cui DO LAB BLOOD ORDERABLES Fin al Result [facility] ([place]) 1 [facility] Department [place] [address] * (ABNORMAL) Comprehensive metabolic panel (05/07/2025 5:13 AM CDT) Sodium 139 135 - 145 mmol/L Potassium, pl 3.9 3.3 - 4.9 mmol/L [facility] Chloride 106 97 - 110 mmol/L [facility] ([place]) CO2 21(L) 22 - 32 mmol/L [facility] ([place]) Anion gap 11 2 - 15 mmol/L [facility] BUN 19 6 - 25 mg/dL [facility] ([place]) Creatinine 0.81 0.80 - 1.30 mg/dL [facility] ([place]) Glucose 112 70 - 199 mg/dL [facility] ([place]) Comment: Interpretive Data Fasting glucose >/= 126 mg/dl is diagnostic for diabetes. Fasting is defined as no caloric intake for at least 8 hours. Fasting glucose between 100 mg/dl to 125 mg/dl is diagnostic of prediabetes. In a patient with classic symptoms of hyperglycemia or hyperglycemic crisis, a random glucose >/= 200 mg/dl is diagnostic for diabetes. In the absence of unequivocal hyperglycemia, results should be confirmed by repeat testing. The classification and Diagnosis of Diabetes Diabetes Care 2021; 46: S19-S40. Current interpretive data was last revised 2022. Calcium 8.2(L) 8.5 - 10.3 mg/dL [facility] ([place]) Bilirubin, total 0.8 0.1 - 1.2 mg/dL [facility] ([place]) Protein, pl 6.0(L) 6.5 - 8.5 g/dL [facility] ([place]) Albumin 2.2(L) 3.5 - 5.0 g/dL [facility] ([place]) Alk phos 78 40 - 130 Units/L [facility] ([place]) ALT 27 7 - 55 Units/L [facility] ([place]) AST 41 10 - 50 Units/L [facility] ([place]) Blood 05/07/2025 5:13 AM CDT 05/07/2025 5:40 AM CDT Roseann Cui DO LAB BLOOD ORDERABLES Fin al Result [facility] ([place]) 1 [facility] [place] [address] * POCT glucose (05/07/2025 2:00 AM CDT) Glucose, POC 130 70 - 199 mg/dL Blood 05/07/2025 2:00 AM CDT 05/07/2025 2:00 AM CDT Roseann Cui DO LAB POCT ORDERABLES - DE VICE Final Result [facility] ([place]) 1 [facility] [place] [address] * POCT glucose (05/06/2025 7:53 PM CDT) Glucose, POC 108 70 - 199 mg/dL Blood 05/06/2025 7:53 PM CDT 05/06/2025 7:53 PM CDT Roseann Cui DO LAB POCT ORDERABLES - DE VICE Final Result [facility] ([place]) 1 [facility] [place] [address] * POCT glucose (05/06/2025 4:43 PM CDT) Glucose, POC 113 70 - 199 mg/dL Blood 05/06/2025 4:43 PM CDT 05/06/2025 4:43 PM CDT Roseann Cui DO LAB POCT ORDERABLES - DE VICE Final Result Performing Organization Address City/[facility]/ZIP Co de Phone Number [facility] ([place]) 1 [facility] [place] [address] * POCT glucose (05/06/2025 11:29 AM CDT) Glucose, POC 149 70 - 199 mg/dL Blood 05/06/2025 11:2 9 AM CDT 05/06/2025 11:29 AM CDT Roseann Cui DO LAB POCT ORDERABLES - DE VICE Final Result Performing Organization Address [facility] Co de Phone Number [facility] ([place]) 1 [facility] [place] [address] * POCT glucose (05/06/2025 7:51 AM CDT) Pathologist [facility] Glucose, POC 117 70 - 199 mg/dL Blood 05/06/2025 7:51 AM CDT 05/06/2025 7:51 AM CDT Roseann Cui DO LAB POCT ORDERABLES - DE VICE Final Result Performing Organization Address City/[facility] Co de Phone Number [facility] ([place]) 1 [facility] [place] [address] * eGFR (05/06/2025 7:31 AM CDT) [facility] eGFR 87 >=60 mL/min/1. 73 m2 Comment: Interpretive Data Reference Interval Normal >/= 90 mL/min/1.73m2 Mildly decreased* 60 - 89 mL/min/1.73m2 Mildly to moderately decreased 45 - 59 mL/min/1.73m2 Moderately to severely decreased 30 - 44 mL/min/1.73m2 Severely decreased 15 - 29 mL/min/1.73m2 Kidney Failure < 15 mL/min/1.73m2 *Relative to young adult level Estimated glomerular filtration rate is determined by the 2020 CKD-EPI equation recommended by the National Kidney Foundation (A Unifying Approach to GFR Estimation: Recommendations of the NKF-ASK Task Force on Reassessing the Inclusion of Race in Diagnosing Kidney Disease, JASN 2020). The CKD-EPI equation should not be used for patients with unstable renal function and has not been validated in children and those over 70. Current interpretive data was last reviewed 2021. Blood 05/06/2025 7:31 AM CDT 05/06/2025 8:17 AM CDT us Roseann Cui DO LAB BLOOD ORDERABLES Fin al Result [facility] ([place]) 1 [facility] Department [place] [address] * (ABNORMAL) Differential, auto (05/06/2025 7:31 AM CDT) Neutrophil abs 6.93(H) 1.50 - 6.50 K/cumm Imm gran abs 0.10 0.00 - 0.10 K/cumm [facility] ([place]) Lymphocyte abs 0.70(L) 0.80 - 3.30 K/cumm [facility] ([place]) Monocyte abs 0.51 0.20 - 0.80 K/cumm [facility] ([place]) Eosinophil abs 0.03 0.00 - 0.50 K/cumm [facility] ([place]) Basophil abs 0.01 0.00 - 0.10 K/cumm [facility] ([place]) Neutrophil pct 83.6 % [facility] ([place]) Comment: Interpretive Data Percent cell count reference ranges are not reported, since discordance with absolute values may lead to misinterpretation of CBC data. Current Interpretive Data was last revised on 2018. Imm gran pct 1.2 % [facility] ([place]) Comment: Interpretive Data Percent cell count reference ranges are not reported, since discordance with absolute values may lead to misinterpretation of CBC data. Current Interpretive Data was last revised on 2018. Lymphocyte pct 8.5 % [facility] ([place]) Comment: Interpretive Data Percent cell count reference ranges are not reported, since discordance with absolute values may lead to misinterpretation of CBC data. Current Interpretive Data was last revised on 2018. Monocyte pct 6.2 % [facility] ([place]) Comment: Interpretive Data Percent cell count reference ranges are not reported, since discordance with absolute values may lead to misinterpretation of CBC data. Current Interpretive Data was last revised on 2018. Eosinophil pct 0.4 % [facility] ([place]) Comment: Interpretive Data Percent cell count reference ranges are not reported, since discordance with absolute values may lead to misinterpretation of CBC data. Current Interpretive Data was last revised on 2018. Basophil pct 0.1 % [facility] ([place]) Comment: Interpretive Data Percent cell count reference ranges are not reported, since discordance with absolute values may lead to misinterpretation of CBC data. Current Interpretive Data was last revised on 2018. Blood 05/06/2025 7:31 AM CDT 05/06/2025 8:17 AM CDT Roseann Cui DO LAB BLOOD ORDERABLES Fin al Result [facility] ([place]) 1 [facility] Department [place] [address] * (ABNORMAL) CBC with auto differential (05/06/2025 7:31 AM CDT) WBC 8.28 3.80 - 9.90 K/cumm Hgb 10.2(L) 13.0 - 17.5 g/dL [facility] ([place]) Hct 30.4(L) 38.9 - 50.3 % [facility] ([place]) Plt 67(L) 150 - 400 K/cumm [facility] ([place]) MPV 11.8 9.1 - 12.3 fL [facility] ([place]) RBC 3.27(L) 4.30 - 5.80 M/cumm [facility] ([place]) MCV 93.0 81.3 - 96.4 fL [facility] ([place]) MCH 31.2 27.1 - 33.3 pg [facility] ([place]) MCHC 33.6 32.3 - 35.7 g/dL [facility] ([place]) RDW CV 17.7(H) 11.1 - 14.9 % [facility] ([place]) RDW SD 60.3(H) 35.7 - 48.1 fL [facility] ([place]) NRBC abs 0.00 0.00 - 0.01 K/cumm [facility] ([place]) Blood 05/06/2025 7:31 AM CDT 05/06/2025 8:17 AM CDT Roseann BaileyEndeca DO LAB BLOOD ORDERABLES Fin al Result [facility] ([place]) 1 [facility] [place] [place] [address] * (ABNORMAL) Phosphorus (05/06/2025 7:31 AM CDT) Phosphorus, pl 2.2(L) 2.3 - 4.5 mg/dL Blood 05/06/2025 7:31 AM CDT 05/06/2025 8:17 AM CDT Roseann BaileyEndeca DO LAB BLOOD ORDERABLES Fin al Result [facility] C[facility] ([place]) 1 [facility] [place] [address] * Magnesium (05/06/2025 7:31 AM CDT) Magnesium 1.8 1.4 - 2.5 mg/dL Blood 05/06/2025 7:31 AM CDT 05/06/2025 8:17 AM CDT Roseann Cui DO LAB BLOOD ORDERABLES [facility] al Result [facility] ([place]) 1 [facility] Department [place] [address] * (ABNORMAL) Comprehensive metabolic panel (05/06/2025 7:31 AM CDT) Sodium 137 135 - 145 mmol/L Potassium, pl 4.1 3.3 - 4.9 mmol/L [facility] ([place]) Chloride 106 97 - 110 mmol/L [facility] ([place]) CO2 23 22 - 32 mmol/L [facility] ([place]) Anion gap 7 2 - 15 mmol/L [facility] ([place]) BUN 20 6 - 25 mg/dL [facility] ([place]) Creatinine 0.87 0.80 - 1.30 mg/dL [facility] ([place]) Glucose 131 70 - 199 mg/dL [facility] ([place]) Comment: Interpretive Data Fasting glucose >/= 126 mg/dl is diagnostic for diabetes. Fasting is defined as no caloric intake for at least 8 hours. Fasting glucose between 100 mg/dl to 125 mg/dl is diagnostic of prediabetes. In a patient with classic symptoms of hyperglycemia or hyperglycemic crisis, a random glucose >/= 200 mg/dl is diagnostic for diabetes. In the absence of unequivocal hyperglycemia, results should be confirmed by repeat testing. The classification and Diagnosis of Diabetes Diabetes Care 202; 46: S19-S40. Current interpretive data was last revised 2022. Calcium 8.3(L) 8.5 - 10.3 mg/dL [facility] ([place]) Bilirubin, total 0.6 0.1 - 1.2 mg/dL [facility] ([place]) Protein, pl 6.0(L) 6.5 - 8.5 g/dL [facility] ([place]) Albumin 2.3(L) 3.5 - 5.0 g/dL [facility] ([place]) Alk phos 81 40 - 130 Units/L [facility] ([place]) ALT 21 7 - 55 Units/L [facility] ([place]) AST 39 10 - 50 Units/L [facility] ([place]) Comment:Slightly Hemolyzed S pecimen Blood 05/06/2025 7:31 AM CDT 05/06/2025 8:17 AM CDT Roseann Cui DO LAB BLOOD ORDERABLES Fin al Result [facility] ([place]) 1 [facility] [place] [address] * POCT glucose (05/06/2025 2:20 AM CDT) Glucose, POC 159 70 - 199 mg/dL Blood 05/06/2025 2:20 AM CDT 05/06/2025 2:20 AM CDT Roseann Cui DO LAB POCT ORDERABLES - DE VICE Final Result Performing Organization Address [facility]/ZIP Co de Phone Number [facility] ([place]) 1 [facility] [place] [address] * POCT glucose (05/05/2025 8:46 PM CDT) Glucose, POC 198 70 - 199 mg/dL Blood 05/05/2025 8:46 PM CDT 05/05/2025 8:46 PM CDT Roseann Cui DO LAB POCT ORDERABLES - DE VICE Final Result Performing Organization Address City/[facility]/ZIP Co de Phone Number [facility] ([place]) 1 [facility] [place] [address] * (ABNORMAL) POCT glucose (05/05/2025 4:35 PM CDT) Glucose, POC 208(H) 70 - 199 mg/dL Blood 05/05/2025 4:35 PM CDT 05/05/2025 4:35 PM CDT Roseann Cui DO LAB POCT ORDERABLES - DE VICE Final Result [facility] ([place]) 1 [facility] [place] [address] * (ABNORMAL) Sepsis Lactate w/ Reflex (05/05/2025 2:32 PM CDT) Sepsis Lactate 2.8(H) 0.7 - 2.0 mmol/L Blood 05/05/2025 2:32 PM CDT 05/05/2025 2:35 PM CDT Roseann Cui DO LAB BLOOD ORDERABLES Fin al Result [facility] ([place]) 1 [facility] [place] [address] * (ABNORMAL) Sepsis Lactate w/ Reflex (05/05/2025 11:55 AM CDT) Sepsis Lactate 2.2(H) 0.7 - 2.0 mmol/L Blood 05/05/2025 11:5 5 AM CDT 05/05/2025 12:00 PM CDT Roseann Cui DO LAB BLOOD ORDERABLES Fin al Result [facility] CUE[facility] ([place]) 1 [facility] [place] [address] * (ABNORMAL) POCT glucose (05/05/2025 11:32 AM CDT) Glucose, POC 248(H) 70 - 199 mg/dL Blood 05/05/2025 11:3 2 AM CDT 05/05/2025 11:32 AM CDT Roseann Cui DO LAB POCT ORDERABLES - DE VICE Final Result [facility] CUE[facility] ([place]) 1 [facility] [place] [address] * (ABNORMAL) Sepsis Lactate w/ Reflex (05/05/2025 8:56 AM CDT) Sepsis Lactate 2.3(H) 0.7 - 2.0 mmol/L Blood 05/05/2025 8:56 AM CDT 05/05/2025 9:00 AM CDT Roseann Agulia [employer] DO LAB BLOOD ORDERABLES Fin al Result [facility] ([place]) 1 [facility] [employer] [place] [address] * eGFR (05/05/2025 8:56 AM CDT) eGFR >90 >=60 mL/min/1. 73 m2 Comment: Interpretive Data Reference Interval Normal >/= 90 mL/min/1.73m2 Mildly decreased* 60 - 89 mL/min/1.73m2 Mildly to moderately decreased 45 - 59 mL/min/1.73m2 Moderately to severely decreased 30 - 44 mL/min/1.73m2 Severely decreased 15 - 29 mL/min/1.73m2 Kidney Failure < 15 mL/min/1.73m2 *Relative to young adult level Estimated glomerular filtration rate is determined by the 2020 CKD-EPI equation recommended by the National Kidney Foundation (A Unifying Approach to GFR Estimation: Recommendations of the NKF-ASK Task Force on Reassessing the Inclusion of Race in Diagnosing Kidney Disease, JASN 2020). The CKD-EPI equation should not be used for patients with unstable renal function and has not been validated in children and those over 70. Current interpretive data was last reviewed 2021. Blood 05/05/2025 8:56 AM CDT 05/05/2025 9:00 AM CDT Roseann Aguila [employer] DO LAB BLOOD ORDERABLES Fin al Result [facility] ([place]) 1 [facility] [place] [place] [address] * (ABNORMAL) Differential, auto (05/05/2025 8:56 AM CDT) Neutrophil abs 8.73(H) 1.50 - 6.50 K/cumm Imm gran abs 0.12(H) 0.00 - 0.10 K/cumm [facility] ([place]) Lymphocyte abs 0.55(L) 0.80 - 3.30 K/cumm [facility] ([place]) Monocyte abs 0.60 0.20 - 0.80 K/cumm [facility] ([place]) Eosinophil abs 0.00 0.00 - 0.50 K/cumm [facility] ([place]) Basophil abs 0.01 0.00 - 0.10 K/cumm [facility] ([place]) Neutrophil pct 87.2 % [facility] ([place]) Comment: Interpretive Data Percent cell count reference ranges are not reported, since discordance with absolute values may lead to misinterpretation of CBC data. Current Interpretive Data was last revised on 2018. Imm gran pct 1.2 % [facility] ([place]) Comment: Interpretive Data Percent cell count reference ranges are not reported, since discordance with absolute values may lead to misinterpretation of CBC data. Current Interpretive Data was last revised on 2018. Lymphocyte pct 5.5 % [facility] ([place]) Comment: Interpretive Data Percent cell count reference ranges are not reported, since discordance with absolute values may lead to misinterpretation of CBC data. Current Interpretive Data was last revised on 2018. Monocyte pct 6.0 % [facility] ([place]) Comment: Interpretive Data Percent cell count reference ranges are not reported, since discordance with absolute values may lead to misinterpretation of CBC data. Current Interpretive Data was last revised on 2018. Eosinophil pct 0.0 % [facility] ([place]) Comment: Interpretive Data Percent cell count reference ranges are not reported, since discordance with absolute values may lead to misinterpretation of CBC data. Current Interpretive Data was last revised on 2018. Basophil pct 0.1 % [facility] ([place]) Comment: Interpretive Data Percent cell count reference ranges are not reported, since discordance with absolute values may lead to misinterpretation of CBC data. Current Interpretive Data was last revised on 2018. Blood 05/05/2025 8:56 AM CDT 05/05/2025 9:00 AM CDT Roseann Cui DO LAB BLOOD ORDERABLES Fin al Result [facility] ([place]) 1 [facility] [place] [address] * (ABNORMAL) CBC with auto differential (05/05/2025 8:56 AM CDT) WBC 10.01(H) 3.80 - 9.90 K/cumm Hgb 11.1(L) 13.0 - 17.5 g/dL [facility] ([place]) Hct 33.1(L) 38.9 - 50.3 % [facility] ([place]) Plt 50(L) 150 - 400 K/cumm [facility] ([place]) MPV 12.1 9.1 - 12.3 fL [facility] ([place]) RBC 3.58(L) 4.30 - 5.80 M/cumm [facility] ([place]) MCV 92.5 81.3 - 96.4 fL [facility] ([place]) MCH 31.0 27.1 - 33.3 pg [facility] ([place]) MCHC 33.5 32.3 - 35.7 g/dL [facility] ([place]) RDW CV 17.9(H) 11.1 - 14.9 % [facility] ([place]) RDW SD 61.0(H) 35.7 - 48.1 fL [facility] ([place]) NRBC abs 0.00 0.00 - 0.01 K/cumm [facility] ([place]) Blood 05/05/2025 8:56 AM CDT 05/05/2025 9:00 AM CDT Roseann Cui DO LAB BLOOD ORDERABLES Fin al Result Performing Organization Address City/[facility]/ZIP Co de Phone Number [facility] ([place]) 1 [facility] [place] [address] * (ABNORMAL) Phosphorus (05/05/2025 8:56 AM CDT) Pathologist [facility] Phosphorus, pl 2.2(L) 2.3 - 4.5 mg/dL Blood 05/05/2025 8:56 AM CDT 05/05/2025 9:00 AM CDT [facility] Ayla LynnEndeca DO LAB BLOOD ORDERABLES Fin al Result Performing Organization Address City/[facility]/ZIP Co de Phone Number [facility] ([place]) 1 [facility] [place] [address] * Magnesium (05/05/2025 8:56 AM CDT) [facility] Magnesium 1.9 1.4 - 2.5 mg/dL Blood 05/05/2025 8:56 AM CDT 05/05/2025 9:00 AM CDT [facility] Ayla Cui LAB BLOOD ORDERABLES Fin al Result Performing Organization Address City/[facility] Co de Phone Number [facility] ([place]) 1 [facility] [place] [address] * (ABNORMAL) Comprehensive metabolic panel (05/05/2025 8:56 AM CDT) [facility] Sodium 137 135 - 145 mmol/L Potassium, pl 3.9 3.3 - 4.9 mmol/L [facility] ([place]) Chloride 105 97 - 110 mmol/L [facility] ([place]) CO2 19(L) 22 - 32 mmol/L [facility] ([place]) Anion gap 12 2 - 15 mmol/L [facility] ([place]) BUN 16 6 - 25 mg/dL [facility] ([place]) Creatinine 0.71(L) 0.80 - 1.30 mg/dL [facility] Glucose 153 70 - 199 mg/dL [facility] ([place]) Comment: Interpretive Data Fasting glucose >/= 126 mg/dl is diagnostic for diabetes. Fasting is defined as no caloric intake for at least 8 hours. Fasting glucose between 100 mg/dl to 125 mg/dl is diagnostic of prediabetes. In a patient with classic symptoms of hyperglycemia or hyperglycemic crisis, a random glucose >/= 200 mg/dl is diagnostic for diabetes. In the absence of unequivocal hyperglycemia, results should be confirmed by repeat testing. The classification and Diagnosis of Diabetes Diabetes Care 202; 46: S19-S40. Current interpretive data was last revised 2022. Calcium 8.2(L) 8.5 - 10.3 mg/dL [facility] ([place]) Bilirubin, total 0.6 0.1 - 1.2 mg/dL [facility] ([place]) Protein, pl 6.3(L) 6.5 - 8.5 g/dL [facility] ([place]) Albumin 2.4(L) 3.5 - 5.0 g/dL [facility] ([place]) Alk phos 72 40 - 130 Units/L [facility] ([place]) ALT 15 7 - 55 Units/L [facility] ([place]) AST 33 10 - 50 Units/L [facility] ([place]) Blood 05/05/2025 8:56 AM CDT 05/05/2025 9:00 AM CDT Roseann Cui DO LAB BLOOD ORDERABLES Fin al Result [facility] ([place]) 1 [facility] [employer] [place] [address] * POCT glucose (05/05/2025 7:32 AM CDT) Glucose, POC 151 70 - 199 mg/dL Blood 05/05/2025 7:32 AM CDT 05/05/2025 7:32 AM CDT Roseann Cui DO LAB POCT ORDERABLES - DE VICE Final Result Performing Organization Address City/[facility]/ZIP Co de Phone Number [facility] ([place]) 1 [facility] [employer] [place] [place] [place] [address] * POCT glucose (05/05/2025 2:11 AM CDT) Glucose, POC 177 70 - 199 mg/dL Blood 05/05/2025 2:11 AM CDT 05/05/2025 2:11 AM CDT Chandni Pritchard MD LAB POCT ORDERABLES - DEVICE Final Result Performing Organization Address City/[facility]/ZIP Co de Phone Number [facility] ([place]) 1 [facility] [place] [address] * (ABNORMAL) POCT glucose (05/04/2025 8:06 PM CDT) Glucose, POC 210(H) 70 - 199 mg/dL Blood 05/04/2025 8:06 PM CDT 05/04/2025 8:06 PM CDT Chandni Pritchard MD LAB POCT ORDERABLES - DEVICE Final Result Performing Organization Address City/[facility]/ZIP Co de Phone Number [facility] ([place]) 1 [facility] [place] [address] * POCT glucose (05/04/2025 4:32 PM CDT) Glucose, POC 195 70 - 199 mg/dL Blood 05/04/2025 4:32 PM CDT 05/04/2025 4:32 PM CDT Chandni Pritchard MD LAB POCT ORDERABLES - DEVICE Final Result Performing Organization Address City/[facility]/ZIP Co de Phone Number [facility] ([place]) 1 [facility] [place] [place] [address] * Blood culture Blood (05/04/2025 12:40 PM CDT) Report Final Report: No growth Comment:Testing performed by : [facility], [address], [place]., [address] Blood 05/04/2025 12:4 0 PM CDT 05/04/2025 5:01 PM CDT Narrative [facility] ([place]) - 05/09/2025 7:00 AM CDT From a different site than #1. Collection->Peripheral 1. Blood cultures are incubated for 4 days on a continuously monitored blood culture system. The first report of a negative culture is issued within 24 hours of receipt of the specimen in the laboratory. 2. Positive culture results are reported as soon as they are detected. 3. The most important factor for detection of microbes in the setting of bloodstream infection is the volume of blood submitted for culture. Failure to collect an optimal blood volume can result in false negative blood cultures. 4. For pediatric patients, the recommended blood volume to collect follows a weight based strategy. See the electronic test catalog for collection instructions. 5. For positive blood cultures, a rapid molecular test may be performed for organism identification using the [employer] blood culture identification panel for gram positive (BCID-GP) and gram negative (BCID-GN) organisms. This nucleic acid amplification test detects microbial DNA in positive blood culture broth. This assay has been cleared by the [place] Food and Drug Administration and its performance characteristics have been verified by the [facility] Microbiology Laboratory. For questions about this culture, contact the Microbiology Laboratory at [phone]. Interpretive data was last revised on 24. Gibson Nolen MD LAB MICROBIOLOGY - GENERAL ORDERABLES Final Result [facility] ([place]) 1 [facility] Department of Laboratories [place], [place] [id number] * (ABNORMAL) Lactate (05/04/2025 12:29 PM CDT) [facility] Signature Lactate 4.1(C) 0.7 - 2.0 mmol/L Comment:Critical result call ed to and read back by Kennedy Youssef (APPLIANCE REPAIRER) on 05/04/2025 12:54:08 CDT to [id number]. Blood 05/04/2025 12:2 9 PM CDT 05/04/2025 12:49 PM CDT us Luca Sifuentes MD LAB BLOOD ORDERABLES Final Resu lt [facility] ([place]) 1 [facility] [place] [place] [address] * Blood culture Blood (05/04/2025 12:29 PM CDT) Report Final Report: No growth Comment:Testing performed by : [facility], [address] [place]., [address] Blood 05/04/2025 12:2 9 PM CDT 05/04/2025 5:01 PM CDT Narrative [facility] ([place]) - 05/09/2025 7:00 AM CDT Collection->Peripheral 1. Blood cultures are incubated for 4 days on a continuously monitored blood culture system. The first report of a negative culture is issued within 24 hours of receipt of the specimen in the laboratory. 2. Positive culture results are reported as soon as they are detected. 3. The most important factor for detection of microbes in the setting of bloodstream infection is the volume of blood submitted for culture. Failure to collect an optimal blood volume can result in false negative blood cultures. 4. For pediatric patients, the recommended blood volume to collect follows a weight based strategy. See the electronic test catalog for collection instructions. 5. For positive blood cultures, a rapid molecular test may be performed for organism identification using the [employer] blood culture identification panel for gram positive (BCID-GP) and gram negative (BCID-GN) organisms. This nucleic acid amplification test detects microbial DNA in positive blood culture broth. This assay has been cleared by the [place] Food and Drug Administration and its performance characteristics have been verified by the [facility] Microbiology Laboratory. For questions about this culture, contact the Microbiology Laboratory at [phone]. Interpretive data was last revised on 24. us Gibson Nolen MD LAB MICROBIOLOGY - GENERAL ORDERABLES Final Result [facility] ([place]) 1 [facility] [place] [place] [address] * POCT glucose (05/04/2025 11:14 AM CDT) Glucose, POC 199 70 - 199 mg/dL Blood 05/04/2025 11:1 4 AM CDT 05/04/2025 11:14 AM CDT Luca Sifuentes MD LAB POCT ORDERABLES - DEVICE Fi nal Result [facility] ([place]) 1 [facility] [place] [address] * POCT glucose (05/04/2025 8:00 AM CDT) Glucose, POC 166 70 - 199 mg/dL Blood 05/04/2025 8:00 AM CDT 05/04/2025 8:00 AM CDT Luca Sifuentes MD LAB POCT ORDERABLES - DEVICE Fi nal Result Performing Organization Address City/[facility]/ZIP Co de Phone Number [facility] ([place]) 1 [facility] [place] [address] * POCT glucose (05/04/2025 5:21 AM CDT) Glucose, POC 195 70 - 199 mg/dL Blood 05/04/2025 5:21 AM CDT 05/04/2025 5:21 AM CDT Luca Sifuentes MD LAB POCT ORDERABLES - DEVICE Fi nal Result Performing Organization Address City/[facility]/ZIP Co de Phone Number [facility] ([place]) 1 [facility] [place] [address] * eGFR (05/04/2025 3:04 AM CDT) eGFR 90 >=60 mL/min/1. 73 m2 Comment: Interpretive Data Reference Interval Normal >/= 90 mL/min/1.73m2 Mildly decreased* 60 - 89 mL/min/1.73m2 Mildly to moderately decreased 45 - 59 mL/min/1.73m2 Moderately to severely decreased 30 - 44 mL/min/1.73m2 Severely decreased 15 - 29 mL/min/1.73m2 Kidney Failure < 15 mL/min/1.73m2 *Relative to young adult level Estimated glomerular filtration rate is determined by the 2020 CKD-EPI equation recommended by the National Kidney Foundation (A Unifying Approach to GFR Estimation: Recommendations of the NKF-ASK Task Force on Reassessing the Inclusion of Race in Diagnosing Kidney Disease, JASN 2020). The CKD-EPI equation should not be used for patients with unstable renal function and has not been validated in children and those over 70. Current interpretive data was last reviewed 2021. Blood 05/04/2025 3:04 AM CDT 05/04/2025 3:55 AM CDT us Luca Sifuentes MD LAB BLOOD ORDERABLES Final Resu lt [facility] ([place]) 1 [facility] [place] [address] * (ABNORMAL) Differential, auto (05/04/2025 3:04 AM CDT) Neutrophil abs 10.58(H) 1.50 - 6.50 K/cumm Imm gran abs 0.12(H) 0.00 - 0.10 K/cumm [facility] ([place]) Lymphocyte abs 0.38(L) 0.80 - 3.30 K/cumm [facility] ([place]) Monocyte abs 0.53 0.20 - 0.80 K/cumm [facility] ([place]) Eosinophil abs 0.00 0.00 - 0.50 K/cumm [facility] ([place]) Basophil abs 0.01 0.00 - 0.10 K/cumm [facility] ([place]) Neutrophil pct 91.0 % [facility] ([place]) Comment: Interpretive Data Percent cell count reference ranges are not reported, since discordance with absolute values may lead to misinterpretation of CBC data. Current Interpretive Data was last revised on 2018. Imm gran pct 1.0 % [facility] ([place]) Comment: Interpretive Data Percent cell count reference ranges are not reported, since discordance with absolute values may lead to misinterpretation of CBC data. Current Interpretive Data was last revised on 2018. Lymphocyte pct 3.3 % [facility] ([place]) Comment: Interpretive Data Percent cell count reference ranges are not reported, since discordance with absolute values may lead to misinterpretation of CBC data. Current Interpretive Data was last revised on 2018. Monocyte pct 4.6 % [facility] ([place]) Comment: Interpretive Data Percent cell count reference ranges are not reported, since discordance with absolute values may lead to misinterpretation of CBC data. Current Interpretive Data was last revised on 2018. Eosinophil pct 0.0 % [facility] ([place]) Comment: Interpretive Data Percent cell count reference ranges are not reported, since discordance with absolute values may lead to misinterpretation of CBC data. Current Interpretive Data was last revised on 2018. Basophil pct 0.1 % [facility] ([place]) Comment: Interpretive Data Percent cell count reference ranges are not reported, since discordance with absolute values may lead to misinterpretation of CBC data. Current Interpretive Data was last revised on 2018. Blood 05/04/2025 3:04 AM CDT 05/04/2025 3:55 AM CDT us Luca Sifuentes MD LAB BLOOD ORDERABLES Final Resu lt [facility] ([place]) 1 [facility] Department [place] [address] * (ABNORMAL) CBC with auto differential (05/04/2025 3:04 AM CDT) WBC 11.62(H) 3.80 - 9.90 K/cumm Hgb 10.5(L) 13.0 - 17.5 g/dL [facility] ([place]) Hct 31.2(L) 38.9 - 50.3 % [facility] ([place]) Plt 62(L) 150 - 400 K/cumm [facility] ([place]) MPV 11.1 9.1 - 12.3 fL [facility] ([place]) RBC 3.38(L) 4.30 - 5.80 M/cumm [facility] ([place]) MCV 92.3 81.3 - 96.4 fL [facility] ([place]) MCH 31.1 27.1 - 33.3 pg [facility] ([place]) MCHC 33.7 32.3 - 35.7 g/dL [facility] ([place]) RDW CV 17.7(H) 11.1 - 14.9 % [facility] ([place]) RDW SD 59.9(H) 35.7 - 48.1 fL [facility] ([place]) NRBC abs 0.00 0.00 - 0.01 K/cumm [facility] ([place]) Blood 05/04/2025 3:04 AM CDT 05/04/2025 3:55 AM CDT us Luca Sifuentes MD LAB BLOOD ORDERABLES Final Resu lt [facility] ([place]) 1 [facility] Department of Laboratories [place] [id number] * (ABNORMAL) Comprehensive metabolic panel (05/04/2025 3:04 AM CDT) Sodium 138 135 - 145 mmol/L Potassium, pl 3.4 3.3 - 4.9 mmol/L [facility] ([place]) Chloride 106 97 - 110 mmol/L [facility] ([place]) CO2 20(L) 22 - 32 mmol/L [facility] ([place]) Anion gap 12 2 - 15 mmol/L [facility] ([place]) BUN 15 6 - 25 mg/dL [facility] Creatinine 0.77(L) 0.80 - 1.30 mg/dL [facility] ([place]) Glucose 186 70 - 199 mg/dL [facility] ([place]) Comment: Interpretive Data Fasting glucose >/= 126 mg/dl is diagnostic for diabetes. Fasting is defined as no caloric intake for at least 8 hours. Fasting glucose between 100 mg/dl to 125 mg/dl is diagnostic of prediabetes. In a patient with classic symptoms of hyperglycemia or hyperglycemic crisis, a random glucose >/= 200 mg/dl is diagnostic for diabetes. In the absence of unequivocal hyperglycemia, results should be confirmed by repeat testing. The classification and Diagnosis of Diabetes Diabetes Care 2021; 46: S19-S40. Current interpretive data was last revised 2022. Calcium 8.0(L) 8.5 - 10.3 mg/dL [facility] ([place]) Bilirubin, total 0.9 0.1 - 1.2 mg/dL [facility] ([place]) Protein, pl 6.1(L) 6.5 - 8.5 g/dL [facility] ([place]) Albumin 2.4(L) 3.5 - 5.0 g/dL [facility] ([place]) Alk phos 85 40 - 130 Units/L [facility] ([place]) ALT 14 7 - 55 Units/L [facility] ([place]) AST 35 10 - 50 Units/L [facility] ([place]) Blood 05/04/2025 3:04 AM CDT 05/04/2025 3:55 AM CDT us Luca Sifuentes MD LAB BLOOD ORDERABLES Final Resu lt Performing Organization Address City/[facility]/ZIP Co de Phone Number [facility] ([place]) 1 [facility] [employer] [place] [place] [place] [address] * POCT glucose (05/04/2025 12:11 AM CDT) Glucose, POC 196 70 - 199 mg/dL Blood 05/04/2025 12:1 1 AM CDT 05/04/2025 12:11 AM CDT Luca Sifuentes MD LAB POCT ORDERABLES - DEVICE Fi nal Result Performing Organization Address City/[facility]/ZIP Co de Phone Number [facility] ([place]) 1 [facility] [employer] [place] [place] [address] * Critical Care (05/03/2025 9:36 PM CDT) Narrative Gibson Nolen MD - 05/03/2025 9:36 PM CDT Gibson Nolen MD 05/04/2025 2:01 AM Critical Care Performed by: Gibson Nolen MD Authorized by: Gibson Nolen MD CRITICAL CARE: Team: EICU Shift: PM Level of Billing: Critical Care My time spent with this patient was 45 minutes: Critical Provider Statement: I have seen and examined the patient on this day of service. I have reviewed and confirmed the history, physical exam, laboratory and radiologic data as documented in the signed ICU note. I have reviewed and discussed my treatment plan with the ICU team and other medical/bilingual sales consultant staff, making frequent assessments and decisions regarding this patient's complex medical care. Critical Care time was exclusive of time spent performing separately billed procedures, treating other patients, and teaching. This time was in addition to and separate from critical care provided by other practitioners in my group on this day of service. Critical Care was necessary to treat or prevent imminent or life-threatening deterioration of the following conditions: Septic shock Sepsis and Bacteremia This time was spent by me doing the following: Serial laboratory checks, Serial bedside patient exams and Resuscitation with fluids Initiation/active titration of vasoactive medications Empiric broad coverage antibiotics, Obtaining appropriate cultures and Review of prior or current culture/gram stain results I spent time reviewing and interpreting data from bedside monitors, laboratory results, and imaging, I spent time discussing the management of this critically ill patient with consultants and the medical staff and I spent time documenting in the medical record us Gibson Nolen MD IN CLINIC/BEDSIDE ORDERABL ES Final Result * POCT glucose (05/03/2025 8:10 PM CDT) Glucose, POC 173 70 - 199 mg/dL Blood 05/03/2025 8:10 PM CDT 05/03/2025 8:10 PM CDT us Luca Sifuentes MD LAB POCT ORDERABLES - DEVICE Fi nal Result [facility] [place]) 1 [facility] Department of Laboratories [place], [place] [id number] * POCT glucose (05/03/2025 5:54 PM CDT) Glucose, POC 179 70 - 199 mg/dL Blood 05/03/2025 5:54 PM CDT 05/03/2025 5:54 PM CDT Luca Sifuentes MD LAB POCT ORDERABLES - DEVICE Fi nal Result Performing Organization Address [facility] Co de Phone Number ROHAN [facility] ([place]) [address] [place] [address] [place] [address] * Infection Prevention MRSA Only (Staphylococcus aureus) PCR Nasal (05/03/2025 4:27 PM CDT) [facility] PCR Scrn, Methicillin resistant Staphylococcus aureus (MRSA) Not Detected Not Detected Comment: Interpretive Data Testing performed using Nucleic Acid Amplification with the [employer] Xpert MRSA NxG Assay. This assay detects target DNA from mecA, mecC and the SCCmec insertion site of Staphylococcus aureus using Real-Time PCR and has been cleared by the FDA. Performance characteristics have been verified by the [facility]. Current Interpretive Data was last revised on 2023 Nasal 05/03/2025 4:27 PM CDT 05/03/2025 4:30 PM CDT Luca Sifuentes MD LAB MICROBIOLOGY - [facility]AL [facility] Final Result Performing Organization Address [facility] Co de Phone Number [facility]OHAN [facility] ([place]) [address] [place] [address] [place] [address] * (ABNORMAL) Troponin T high-sensitivity 6-hour (05/03/2025 3:34 PM CDT) Pathologist [facility] Trop T hs 31(H) <=22 ng/L Comment: Interpretive Data For further hscTnT resources including the diagnostic algorithm and an aid in interpretation, copy and paste this link: https://nrl.testcatalog.org/show/hsTrop Current Interpretive Data last revised 2020. Trop T hs delta 9 ng/L [facility] ([place]) Trop T hs interp Equivocal [facility] ([place]) Blood 05/03/2025 3:34 PM CDT 05/03/2025 3:38 PM CDT Bob Albert MD LAB BLOOD ORDERABLES Final Result [facility] ([place]) 1 [facility] [place] [place] [address] * (ABNORMAL) Sepsis Lactate w/ Reflex (05/03/2025 3:34 PM CDT) Sepsis Lactate 4.2(C) 0.7 - 2.0 mmol/L Comment:Critical called to Catherine De Leon RN ICU with read back at 05/03/2025 15:43:44 CDT by Ariadne Jensen Blood 05/03/2025 3:34 PM CDT 05/03/2025 3:38 PM CDT Bob Albert MD LAB BLOOD ORDERABLES Final Result [facility] ([place]) 1 [facility] [place] [place] [address] * POCT glucose (05/03/2025 2:11 PM CDT) Glucose, POC 104 70 - 199 mg/dL Blood 05/03/2025 2:11 PM CDT 05/03/2025 2:11 PM CDT Luca Sifuentes MD LAB POCT ORDERABLES - DEVICE Fi nal Result [facility] ([place]) 1 [facility] [place] [address] * (ABNORMAL) Troponin T high-sensitivity 4-hour (05/03/2025 1:12 PM CDT) Trop T hs 36(H) <=22 ng/L Comment: Interpretive Data For further hscTnT resources including the diagnostic algorithm and an aid in interpretation, copy and paste this link: https://nrl.testcatalog.org/show/hsTrop Current Interpretive Data last revised 2020. Trop T hs delta 14(C) ng/L [facility] ([place]) Comment:Critical Result call ed by [email or web address] at 2025-05-03 13:43:16. Result Read Back by Ash De Leon RN ICU Trop T hs interp Significa nt(C) [facility] ([place]) Comment:Critical Result call ed by [email or web address] at 2025-05-03 13:43:16. Result Read Back by Ash De Leon RN ICU Blood 05/03/2025 1:12 PM CDT 05/03/2025 1:13 PM CDT us Bob Albert MD LAB BLOOD ORDERABLES Final Result Performing Organization Address [facility]/ZIP Co de Phone Number [facility] ([place]) 1 [facility] [place] [address] * Thyroid Function [place] (05/03/2025 1:12 PM CDT) TSH 2.82 0.30 - 4.20 mcIUnit/mL Blood 05/03/2025 1:12 PM CDT 05/03/2025 2:21 PM CDT us Luca Sifuentes MD LAB BLOOD ORDERABLES Final Resu lt Performing Organization Address City/[facility]/ZIP Co de Phone Number [facility]OHAN C[facility] ([place]) 1 [facility] [place] [address] * (ABNORMAL) Cortisol (05/03/2025 1:12 PM CDT) Cortisol 74.6(H) 4.8 - 19.5 mcg/dl Comment: Interpretive Data Normal Range: 4.8 - 19.5 mcg/dL; Evening: Half of morning value. This analyte undergoes marked diurnal variation. Ranges indicated apply to morning specimens. Current interpretive data was last revised 2018. Testing performed by: [facility], [address] [place] [address], [place]., [address] Blood 05/03/2025 1:12 PM CDT 05/04/2025 9:09 AM CDT us Luca Sifuentes MD LAB BLOOD ORDERABLES Final Resu lt Performing Organization Address City/[facility]/ZIP Co de Phone Number [facility] ([place]) 1 [facility] [place] [address] * (ABNORMAL) Sepsis Lactate w/ Reflex (05/03/2025 12:38 PM CDT) Sepsis Lactate 3.2(H) 0.7 - 2.0 mmol/L Blood 05/03/2025 12:3 8 PM CDT 05/03/2025 12:42 PM CDT us Bob Albert MD LAB BLOOD ORDERABLES Final Result Performing Organization Address [facility]/ZIP Co de Phone Number [facility]OHAN [facility] ([place]) 1 [facility] [place] [address] * (ABNORMAL) Troponin T high-sensitivity 2-hour (05/03/2025 10:58 AM CDT) Trop T hs 33(H) <=22 ng/L Comment: Interpretive Data For further hscTnT resources including the diagnostic algorithm and an aid in interpretation, copy and paste this link: https://nrl.testcatalog.org/show/hsTrop Current Interpretive Data last revised 2020. Trop T hs delta 11(C) ng/L [facility] ([place]) Comment:Critical Result call ed by [email or web address] at 2025-05-03 11:28:36. Result Read Back by Nataliya Ibarra RN ER Trop T hs interp Significa nt(C) [facility] ([place]) Comment:Critical Result call ed by [email or web address] at 2025-05-03 11:28:36. Result Read Back by Nataliya Ibarra RN ER Blood 05/03/2025 10:5 8 AM CDT 05/03/2025 11:01 AM CDT us Bob Albert MD LAB BLOOD ORDERABLES Final Result [facility] ([place]) 1 [facility] Department [place] [address] * (ABNORMAL) Urinalysis reflex to microscopic and culture Urine (05/03/2025 10:46 AM CDT) Color, ur Yellow Yellow Clarity, ur Clear Clear [facility] ([place]) Specific gravity, ur 1.015 1.003 - 1.030 [facility] ([place]) pH, urine 6.5 [facility] ([place]) Comment: Interpretive Data U rine pH is affected by diet, medications, systemic acid-base disturbances, and renal tubular function. pH may affect urinary stone formation. For example, urine pH below 6.0 may help reduce the tendency for calcium phosphate stones and pH greater than 6.0 may reduce the tendency for uric acid stone formation. Source: [facility] [employer] Current Interpretive Data was last revised on 2017 Protein, ur ql Negative Negative [facility] ([place]) Glucose, ur ql Negative Negative [facility] ([place]) Ketones, ur Negative Negative [facility] ([place]) Bilirubin, ur Negative Negative [facility] ([place]) Blood, ur Negative Negative [facility] ([place]) Urobilinogen, ur 2.0(A) <2.0 mg/dL [facility] ([place]) Nitrite, ur Negative Negative [facility] ([place]) Leukocyte esterase, ur Negative Negative [facility] ([place]) UA reflex comment Reflex conditions for microscopic UA and culture not met. [facility] ([place]) Urine 05/03/2025 10:4 6 AM CDT 05/03/2025 10:52 AM CDT us Bob Albert MD LAB MICROBIOLOGY - GENERAL ORDERABLES Final Result [facility] ([place]) 1 [facility] [place] [address] * CT Chest Abdomen Pelvis WO Contrast (05/03/2025 10:24 AM CDT) Anatomical Region Laterality Modality Body N/A Computed Tomogra phy 05/03/2025 10:3 0 AM CDT Narrative 05/03/2025 10:48 AM CDT EXAM DESCRIPTION: CT CHEST ABDOMEN PELVIS WO CONTRAST REASON FOR STUDY: sepsis Patient arrives via [facility] from home for evaluation of worsening weakness and fever. Patient is very kyphotic TECHNIQUE: CT scan of the chest, abdomen, and pelvis performed without intravenous and without oral contrast using helical scanning technique. Reconstructed coronal and sagittal MPR images reviewed. All images stored on PACS. Automated exposure control was used as a dose optimization technique for this examination. COMPARISON: Abdomen pelvis CT 03/13/2019. FINDINGS: The sensitivity for detection of visceral lesions is diminished without the use of intravenous contrast. CHEST LUNGS: Mild dependent atelectasis. Tiny left upper lobe pulmonary nodule along the fissure on image 14 of series 3. Calcified granuloma in the left upper lobe. No pneumonic consolidation or pulmonary edema is seen. There is respiratory motion artifact. Hardware pacemaker is present PLEURA: No effusion. No pneumothorax. MEDIASTINUM/FEROZ: No identified masses or abnormal nodes. HEART: Heart size is normal with no pericardial effusion. CORONARY ARTERY CALCIFICATION: Present VASCULATURE CHEST: Mild athero sclerotic plaque. No aneurysm is seen. AXILLA: No adenopathy. CHEST WALL: No masses. No subcutaneous air. HARDWARE/LINES/TUBES: None. MUSCULOSKELETAL CHEST: No aggressive bone lesion or acute fracture. There are inter spinous bridging syndesmophytes at multiple levels. At C6-C7 posterior disc osteophyte complex at least moderately narrows the spinal canal ABDOMEN/PELVIS LIVER: Diffuse hepatic steatosis. No gross noncontrast evidence for focal liver lesion. No overt hepatic surface nodularity is seen, but there is periportal widening as can be seen with liver fibrosis. GALLBLADDER: Cholelithiasis. No obvious pericholecystic fluid. BILE DUCTS: No intrahepatic or extrahepatic ductal dilatation. SPLEEN: Calcifications are compatible with old granulomatous disease. There is splenomegaly, measuring up to 18 cm cranio caudally. No gross evidence of focal lesion. PANCREAS: Few small calcifications are compatible with sequela of chronic pancreatitis. ADRENALS: Normal. KIDNEYS/URINARY TRACT: No identified significant cystic or solid masses. No stones. No hydronephrosis or hydroureter. Urinary bladder is unremarkable. GI: There is a moderate to large amount of stool distending the rectum. No overt rectal wall thickening or fat stranding. Please correlate clinically for evidence of stercoral colitis. There is stool throughout the colon, which would be compatible with constipation... The appendix is normal. The esophagus appears unremarkable. There is small hiatal hernia. The stomach is otherwise unremarkable. Small bowel course and caliber is normal and there is no wall thickening or evidence of obstruction. PERITONEUM: No free intraperitoneal gas or fluid is seen. There has been interval ventral abdominal wall hernia repair RETROPERITONEUM: No mass or adenopathy. REPRODUCTIVE: No significant abnormality. VASCULATURE ABDOMEN: Moderate athero sclerotic calcification without aneurysm. 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 Multilevel degenerative disc disease, severe at L4-L5. No aggressive bone lesion or acute fracture is seen.. There is bilateral hip osteoarthritis. OTHER: Small fat containing inguinal hernias are partially seen. IMPRESSION: 1. No acute findings in the chest. 2. Moderate to large amount of stool distending the rectum. No overt rectal wall thickening or fat stranding. Stool throughout the colon, as can be seen with constipation. 3. Diffuse hepatic steatosis. Periportal widening, as can be seen with liver fibrosis. Splenomegaly and splenorenal shunt, compatible with portal hypertension. 4. Cholelithiasis. THIS IS AN ELECTRONICALLY VERIFIED FINAL REPORT 05/03/2025 10:48 AM - Electronically signed by Jose Eduardo Ball M.D. MZ: EULALIA Report ID: [id number] Reading Location: [place] [address] Procedure Note Jose Eduardo Ball MD - 05/03/2025 EXAM DESCRIPTION: CT CHEST ABDOMEN PELVIS WO CONTRAST REASON FOR STUDY: sepsis Patient arrives via [facility] from home for evaluation of worsening weaknessand fever. Patient is very kyphotic TECHNIQUE: CT scan of the chest, abdomen, and pelvis performed without intravenous and without oral contrast using helical scanning technique. Reconstructed coronal and sagittal MPR images reviewed. All images storedon PACS. Automated exposure control was used as a dose optimizationtechnique for this examination. COMPARISON: Abdomen pelvis CT 03/13/2019. FINDINGS: The sensitivity for detection of visceral lesions is diminished withoutthe use of intravenous contrast. CHEST LUNGS: Mild dependent atelectasis. Tiny left upper lobe pulmonarynodule along the fissure on image 14 of series 3. Calcified granuloma in theleft upper lobe. No pneumonic consolidation or pulmonary edema is seen. Thereis respiratory motion artifact. Hardware pacemaker is present PLEURA: No effusion. No pneumothorax. MEDIASTINUM/FEROZ: No identified masses or abnormal nodes. HEART: Heart size is normal with no pericardial effusion. CORONARY ARTERY CALCIFICATION: Present VASCULATURE CHEST: Mild athero sclerotic plaque. No aneurysm is seen. AXILLA: No adenopathy. CHEST WALL: No masses. No subcutaneous air. HARDWARE/LINES/TUBES: None. MUSCULOSKELETAL CHEST: No aggressive bone lesion or acute fracture.There are inter spinous bridging syndesmophytes at multiple levels. At C6-C7 posterior disc osteophyte complex at least moderately narrows the spinalcanal ABDOMEN/PELVIS LIVER: Diffuse hepatic steatosis. No gross noncontrast evidence forfocal liver lesion. No overt hepatic surface nodularity is seen, but there is periportal widening as can be seen with liver fibrosis. GALLBLADDER: Cholelithiasis. No obvious pericholecystic fluid. BILE DUCTS: No intrahepatic or extrahepatic ductal dilatation. SPLEEN: Calcifications are compatible with old granulomatous disease.There is splenomegaly, measuring up to 18 cm cranio caudally. No gross evidenceof focal lesion. PANCREAS: Few small calcifications are compatible with sequela ofchronic pancreatitis. ADRENALS: Normal. KIDNEYS/URINARY TRACT: No identified significant cystic or solid masses.No stones. No hydronephrosis or hydroureter. Urinary bladder isunremarkable. GI: There is a moderate to large amount of stool distending the rectum.No overt rectal wall thickening or fat stranding. Please correlateclinically for evidence of stercoral colitis. There is stool throughout the colon,which would be compatible with constipation... The appendix is normal. The esophagus appears unremarkable. There is small hiatal hernia. Thestomach is otherwise unremarkable. Small bowel course and caliber is normal andthere is no wall thickening or evidence of obstruction. PERITONEUM: No free intraperitoneal gas or fluid is seen. There hasbeen interval ventral abdominal wall hernia repair RETROPERITONEUM: No mass or adenopathy. REPRODUCTIVE: No significant abnormality. VASCULATURE ABDOMEN: Moderate athero sclerotic calcification without aneurysm. There is a splenorenal shunt MUSCULOSKELETAL ABDOMEN PELVIS: Severe inferior facet osteoarthritis inthe lumbar spine. Multilevel degenerative disc disease, severe at L4-L5. No aggressive bone lesion or acute fracture is seen.. There is bilateral hip osteoarthritis. OTHER: Small fat containing inguinal hernias are partially seen. IMPRESSION: 1. No acute findings in the chest. 2. Moderate to large amount of stool distending the rectum. No overtrectal wall thickening or fat stranding. Stool throughout the colon, as can beseen with constipation. 3. Diffuse hepatic steatosis. Periportal widening, as can be seen withliver fibrosis. Splenomegaly and splenorenal shunt, compatible with portal hypertension. 4. Cholelithiasis. THIS IS AN ELECTRONICALLY VERIFIED FINAL REPORT 05/03/2025 10:48 AM - Electronically signed by Jose Eduardo Ball M.D. MZ: EULALIA Report ID: [id number] Reading Location: [id number] Bob Albert MD IMG CT PROCEDURES Final Res ult * CT Head WO Contrast (05/03/2025 10:24 AM CDT) Anatomical Region Laterality Modality Head and Neck N/A Computed Tomogra phy 05/03/2025 10:2 9 AM CDT Narrative 05/03/2025 10:32 AM CDT EXAM DESCRIPTION: CT HEAD WO CONTRAST REASON FOR STUDY: Headache, no red flags Patient arrives via [facility] from home for evaluation of worsening weakness and fever. Patient is very kyphotic TECHNIQUE: Axial images acquired through the brain without intravenous contrast. Images stored on PACS. Automated exposure control was used as a dose optimization technique for this examination. COMPARISON: Head CT 12/31/2024 FINDINGS: No acute intracranial hemorrhage. No evidence of a large vascular territory acute infarction or CT evidence of vasogenic edema. No midline shift or mass effect. There is diffuse cerebral parenchymal volume loss. Scattered mild hypoattenuation in the periventricular and subcortical white matter is nonspecific but can be seen in the setting of chronic small vessel ischemic disease. The calvarium is normal without acute fracture. Status post bilateral lens replacement. Otherwise the orbits are unremarkable. Trace secretions in the right sphenoid sinus otherwise paranasal sinuses well-aerated. The mastoid air cells are well aerated. IMPRESSION: No acute intracranial process. THIS IS AN ELECTRONICALLY VERIFIED FINAL REPORT 05/03/2025 10:32 AM - Electronically signed by Sebas Rincon M.D. MM: MM Report ID: [id number] Reading Location: [id number] Procedure Note Sebas Rincon MD - 05/03/2025 EXAM DESCRIPTION: CT HEAD WO CONTRAST REASON FOR STUDY: Headache, no red flags Patient arrives via [facility] from home for evaluation of worsening weaknessand fever. Patient is very kyphotic TECHNIQUE: Axial images acquired through the brain without intravenous contrast. Images stored on PACS. Automated exposure control was used asa dose optimization technique for this examination. COMPARISON: Head CT 12/31/2024 FINDINGS: No acute intracranial hemorrhage. No evidence of a large vascularterritory acute infarction or CT evidence of vasogenic edema. No midline shift ormass effect. There is diffuse cerebral parenchymal volume loss. Scattered mild hypoattenuation in the periventricular and subcortical white matter is nonspecific but can be seen in the setting of chronic small vesselischemic disease. The calvarium is normal without acute fracture. Status post bilaterallens replacement. Otherwise the orbits are unremarkable. Trace secretions inthe right sphenoid sinus otherwise paranasal sinuses well-aerated. Themastoid air cells are well aerated. IMPRESSION: No acute intracranial process. THIS IS AN ELECTRONICALLY VERIFIED FINAL REPORT 05/03/2025 10:32 AM - Electronically signed by Sebas Rincon M.D. MM: MM Report ID: [id number] Reading Location: [id number] Bob Albert MD IMG CT PROCEDURES Final Res ult * ECG 12 lead (05/03/2025 9:25 AM CDT) 05/03/2025 9:25 AM CDT Narrative [facility] - 05/04/2025 8:51 AM CDT Vent Rate: 120 bpm RR Interval: 498 msec MO Interval: 104 msec QRS Duration: 98 msec QT Interval: 308 msec QTC Interval: 379 msec P-R-T Cadet: 2 - -11 - -1 degrees IMPRESSION: SINUS TACHYCARDIA WITH SHORT MO INTERVAL POSSIBLE INFERIOR MYOCARDIAL INFARCTION , OF INDETERMINATE AGE [30 ms Q WAVE IN II/aVF] Compared to prior EKG heart rate increased Electronically Signed By: Bernard Martinez MD [facility] Bob Albert MD ECG ORDERABLES Final Resul t [facility] * Blood culture Blood (05/03/2025 9:22 AM CDT) Report Final Report: No growth Comment:Testing performed by : [facility], [address], [place]., [address] Blood 05/03/2025 9:22 AM CDT 05/03/2025 11:56 AM CDT Narrative [facility] ([place]) - 05/07/2025 12:00 PM CDT Collection->Peripheral 1. Blood cultures are incubated for 4 days on a continuously monitored blood culture system. The first report of a negative culture is issued within 24 hours of receipt of the specimen in the laboratory. 2. Positive culture results are reported as soon as they are detected. 3. The most important factor for detection of microbes in the setting of bloodstream infection is the volume of blood submitted for culture. Failure to collect an optimal blood volume can result in false negative blood cultures. 4. For pediatric patients, the recommended blood volume to collect follows a weight based strategy. See the electronic test catalog for collection instructions. 5. For positive blood cultures, a rapid molecular test may be performed for organism identification using the [facility] blood culture identification panel for gram positive (BCID-GP) and gram negative (BCID-GN) organisms. This nucleic acid amplification test detects microbial DNA in positive blood culture broth. This assay has been cleared by the [place] Food and Drug Administration and its performance characteristics have been verified by the [facility] Microbiology Laboratory. For questions about this culture, contact the Microbiology Laboratory at [phone]. Interpretive data was last revised on 24. Bob Albert MD LAB MICROBIOLOGY - GENERAL ORDERABLES Final Result [facility] ([place]) 1 [facility] Department [place] [address] * (ABNORMAL) Blood culture Blood (05/03/2025 9:11 AM CDT) Direct Specimen Exam Stain: Gram Positive Cocci in pairs and chains Time to culture positivity (aerobic media): 8.4 hours Time to culture positivity (anaerobic media): 8.4 hours Notification of: Gram Positive Cocci in pairs and chains called to and read back by: Maria Esther Gross [facility] [phone] on 05/03/2025 21:07:53 by: Gibson Middleton MT Test result called to and read back by iglesia strickland on 05/04/2025 00:20:41 by maria esther gross Comment:Testing performed by : [facility], [address] [place] [address]., [id number] Direct Specimen Exam Molecular Analysis: Streptococcus species detected by [facility] BCID-GP panel. This test does not exclude the possibility of a mixed bacterial infection. Notification of: Streptococcus species called to and read back by: Maria Esther Gross.[facility] [phone] on 05/03/2025 23:00:48 by: Veronica [facility] ([place]) Comment:Testing performed by : [facility], [address] [place] [address]., [id number] Report Final Report: Streptococcus dysgalactiae (.) [facility] ([place]) Comment:Testing performed by : [facility], [address] [place] [address]., [id number] Organism STREPTOCOCCUS DYSGALACTIAE [facility] ([place]) Blood 05/03/2025 9:11 AM CDT 05/03/2025 11:56 AM CDT Narrative [facility] ([place]) - 05/08/2025 8:59 AM CDT Collection->Peripheral 1. Blood cultures are incubated for 4 days on a continuously monitored blood culture system. The first report of a negative culture is issued within 24 hours of receipt of the specimen in the laboratory. 2. Positive culture results are reported as soon as they are detected. 3. The most important factor for detection of microbes in the setting of bloodstream infection is the volume of blood submitted for culture. Failure to collect an optimal blood volume can result in false negative blood cultures. 4. For pediatric patients, the recommended blood volume to collect follows a weight based strategy. See the electronic test catalog for collection instructions. 5. For positive blood cultures, a rapid molecular test may be performed for organism identification using the [facility] blood culture identification panel for gram positive (BCID-GP) and gram negative (BCID-GN) organisms. This nucleic acid amplification test detects microbial DNA in positive blood culture broth. This assay has been cleared by the [place] Food and Drug Administration and its performance characteristics have been verified by the [facility] Microbiology Laboratory. For questions about this culture, contact the Microbiology Laboratory at [phone]. Interpretive data was last revised on 24. Organism Antibiotic Method Susceptibility Streptococcus dysgalactiae Penicillin (JENNIFER) (JENNIFER) INTE RPRETATION Susceptible Streptococcus dysgalactiae Ceftriaxone (JENNIFER) (JENNIFER) INT ERPRETATION Susceptible Streptococcus dysgalactiae Clindamycin (JENNIFER) INTERPRE TATION Susceptible Streptococcus dysgalactiae Erythromycin (JENNIFER) INTERPRE TATION Susceptible Streptococcus dysgalactiae Linezolid (JENNIFER) INTERPRE TATION Susceptible Streptococcus dysgalactiae Vancomycin (JENNIFER) INTERPRE TATION Susceptible us Bob Albert MD LAB MICROBIOLOGY - GENERAL ORDERABLES Final Result [facility] ([place]) 1 [facility] Department [place] [address] * Troponin T high-sensitivity series (baseline, 2hr, 4hr, 6hr) (05/03/2025 9:10 AM CDT) Pathologist [facility] Trop T hs 22 <=22 ng/L Comment: Interpretive Data For further hscTnT resources including the diagnostic algorithm and an aid in interpretation, copy and paste this link: [email or web address].testcatalog.org/show/[email or web address] Current Interpretive Data last revised 2020. Blood 05/03/2025 9:10 AM CDT 05/03/2025 9:16 AM CDT Bob Albert MD LAB BLOOD ORDERABLES Final Result [facility] ([place]) 1 [facility] [employer] [place] [address] * (ABNORMAL) Sepsis Lactate w/ Reflex (05/03/2025 9:10 AM CDT) [facility] Sepsis Lactate 4.0(C) 0.7 - 2.0 mmol/L Comment:Critical Nataliya Stacey, R N called to ER with read back at 05/03/2025 09:24:58 CDT by Ariadne Jensen Blood 05/03/2025 9:10 AM CDT 05/03/2025 9:16 AM CDT Bob Albert MD LAB BLOOD ORDERABLES Final Result [facility] ([place]) 1 [facility] [place] [address] * eGFR (05/03/2025 9:10 AM CDT) [facility] eGFR 90 >=60 mL/min/1. 73 m2 Comment: Interpretive Data Reference Interval Normal >/= 90 mL/min/1.73m2 Mildly decreased* 60 - 89 mL/min/1.73m2 Mildly to moderately decreased 45 - 59 mL/min/1.73m2 Moderately to severely decreased 30 - 44 mL/min/1.73m2 Severely decreased 15 - 29 mL/min/1.73m2 Kidney Failure < 15 mL/min/1.73m2 *Relative to young adult level Estimated glomerular filtration rate is determined by the 2020 CKD-EPI equation recommended by the National Kidney Foundation (A Unifying Approach to GFR Estimation: Recommendations of the NKF-ASK Task Force on Reassessing the Inclusion of Race in Diagnosing Kidney Disease, JASN 2020). The CKD-EPI equation should not be used for patients with unstable renal function and has not been validated in children and those over 70. Current interpretive data was last reviewed 2021. Blood 05/03/2025 9:10 AM CDT 05/03/2025 9:16 AM CDT us Bob Albert MD LAB BLOOD ORDERABLES Final Result [facility] ([place]) 1 [facility] Department [place] [address] * (ABNORMAL) Differential, auto (05/03/2025 9:10 AM CDT) Neutrophil abs 6.51(H) 1.50 - 6.50 K/cumm Imm gran abs 0.01 0.00 - 0.10 K/cumm [facility] ([place]) Lymphocyte abs 0.44(L) 0.80 - 3.30 K/cumm [facility] ([place]) Monocyte abs 0.13(L) 0.20 - 0.80 K/cumm [facility] ([place]) Eosinophil abs 0.06 0.00 - 0.50 K/cumm [facility] ([place]) Basophil abs 0.00 0.00 - 0.10 K/cumm [facility] ([place]) Neutrophil pct 91.1 % [facility] ([place]) Comment: Interpretive Data Percent cell count reference ranges are not reported, since discordance with absolute values may lead to misinterpretation of CBC data. Current Interpretive Data was last revised on 2018. Imm gran pct 0.1 % [facility] ([place]) Comment: Interpretive Data Percent cell count reference ranges are not reported, since discordance with absolute values may lead to misinterpretation of CBC data. Current Interpretive Data was last revised on 2018. Lymphocyte pct 6.2 % [facility] ([place]) Comment: Interpretive Data Percent cell count reference ranges are not reported, since discordance with absolute values may lead to misinterpretation of CBC data. Current Interpretive Data was last revised on 2018. Monocyte pct 1.8 % [facility] ([place]) Comment: Interpretive Data Percent cell count reference ranges are not reported, since discordance with absolute values may lead to misinterpretation of CBC data. Current Interpretive Data was last revised on 2018. Eosinophil pct 0.8 % [facility] ([place]) Comment: Interpretive Data Percent cell count reference ranges are not reported, since discordance with absolute values may lead to misinterpretation of CBC data. Current Interpretive Data was last revised on 2018. Basophil pct 0.0 % [facility] ([place]) Comment: Interpretive Data Percent cell count reference ranges are not reported, since discordance with absolute values may lead to misinterpretation of CBC data. Current Interpretive Data was last revised on 2018. Blood 05/03/2025 9:10 AM CDT 05/03/2025 9:16 AM CDT Bob Albert MD LAB BLOOD ORDERABLES Final Result [facility] ([place]) 1 [facility] Department [place] [address] * (ABNORMAL) CBC with auto differential (05/03/2025 9:10 AM CDT) WBC 7.15 3.80 - 9.90 K/cumm Hgb 11.7(L) 13.0 - 17.5 g/dL [facility] ([place]) Hct 34.5(L) 38.9 - 50.3 % [facility] ([place]) Plt 74(L) 150 - 400 K/cumm [facility] ([place]) MPV 9.8 9.1 - 12.3 fL [facility] ([place]) RBC 3.77(L) 4.30 - 5.80 M/cumm [facility] ([place]) MCV 91.5 81.3 - 96.4 fL [facility] ([place]) MCH 31.0 27.1 - 33.3 pg [facility] ([place]) MCHC 33.9 32.3 - 35.7 g/dL [facility] ([place]) RDW CV 17.2(H) 11.1 - 14.9 % [facility] ([place]) RDW SD 57.8(H) 35.7 - 48.1 fL [facility] ([place]) NRBC abs 0.00 0.00 - 0.01 K/cumm [facility] ([place]) Blood 05/03/2025 9:10 AM CDT 05/03/2025 9:16 AM CDT Bob Albert MD LAB BLOOD ORDERABLES Final Result Performing Organization Address [facility] Co de Phone Number [facility] ([place]) 1 [facility] [place] [place] [address] * (ABNORMAL) CRP (acute phase) (05/03/2025 9:10 AM CDT) CRP 19.8(H) <=10.0 mg/L Blood 05/03/2025 9:10 AM CDT 05/03/2025 9:32 AM CDT Bob Albert MD LAB BLOOD ORDERABLES Final Result Performing Organization Address City/[facility]/ZIP Co de Phone Number [facility] ([place]) 1 [facility] [place] [address] * Magnesium (05/03/2025 9:10 AM CDT) Magnesium 1.5 1.4 - 2.5 mg/dL Blood 05/03/2025 9:10 AM CDT 05/03/2025 9:32 AM CDT Bob Albert MD LAB BLOOD ORDERABLES Final Result [facility] ([place]) 1 [facility] Department [place] [address] * (ABNORMAL) Comprehensive metabolic panel (05/03/2025 9:10 AM CDT) Sodium 138 135 - 145 mmol/L Potassium, pl 3.6 3.3 - 4.9 mmol/L [facility] ([place]) Chloride 100 97 - 110 mmol/L [facility] ([place]) CO2 25 22 - 32 mmol/L [facility] ([place]) Anion gap 13 2 - 15 mmol/L [facility] ([place]) BUN 14 6 - 25 mg/dL [facility] ([place]) Creatinine 0.77(L) 0.80 - 1.30 mg/dL [facility] ([place]) Comment:Icteric sample, test results may be affected. Glucose 139 70 - 199 mg/dL [facility] ([place]) Comment: Interpretive Data Fasting glucose >/= 126 mg/dl is diagnostic for diabetes. Fasting is defined as no caloric intake for at least 8 hours. Fasting glucose between 100 mg/dl to 125 mg/dl is diagnostic of prediabetes. In a patient with classic symptoms of hyperglycemia or hyperglycemic crisis, a random glucose >/= 200 mg/dl is diagnostic for diabetes. In the absence of unequivocal hyperglycemia, results should be confirmed by repeat testing. The classification and Diagnosis of Diabetes Diabetes Care 202; 46: S19-S40. Current interpretive data was last revised 2022. Calcium 8.9 8.5 - 10.3 mg/dL [facility] ([place]) Bilirubin, total 1.9(H) 0.1 - 1.2 mg/dL [facility] ([place]) Protein, pl 7.2 6.5 - 8.5 g/dL [facility] ([place]) Albumin 3.0(L) 3.5 - 5.0 g/dL [facility] ([place]) Alk phos 117 40 - 130 Units/L [facility] ([place]) ALT 17 7 - 55 Units/L [facility] ([place]) AST 28 10 - 50 Units/L [facility] ([place]) Blood 05/03/2025 9:10 AM CDT 05/03/2025 9:16 AM CDT Bob Albert MD LAB BLOOD ORDERABLES Final Result [facility] [place] 1 [facility] [place] [address] * DEVICE CHECK - REMOTE (02/23/2025 2:24 PM CDT) Anatomical Region Laterality Modality Other Narrative 03/05/2025 1:00 PM CDT Images from the original result were not included. 02/25/2025 [email or web address] quarterly remote device check NOTE The following shows snippets from the complete quarterly report. The complete report in its entirety is attached to this Result Text in Flag Decorator Periodic iEGM from Last in-office check 10/23/2024 Next in-office check 10/22/2025 DC PPM, implanted 09/02/2014 Battery longevity = 35% AT/AF burden 0% Ap 65% RVp 3% No event/alert episodes recorded this monitoring quarter. Device Nurse Review and Recommendations below Reviewed By NADIA Davison MD Review and Recommendations below (please forward an in-basket message to your MA if check requires attention) ATTESTATION I have reviewed the device interrogation report associated with this encounter in detail. I agree with the documentation recorded/scanned into the electronic medical record. Recommendations: Continue current device follow-up. Ivy Johsnon MD \ us Ivy Johnson MD [facility] CARDIAC SERVICES [place] OCEDURES Final Result * Diabetic Eye Exam (10/13/2024 2:06 PM RETAIL TEAM LEADER) us Historical Provider HEALTH MAINTENANCE Edited Result - Final * PSA screen (09/09/2024 10:07 AM CDT) PSA-Total <0.01 <=6.20 ng/mL Comment: Interpretive Data AGE SEX REFERENCE INTERVAL 0 minutes-150 years Female None 0 minutes-49 years Male None 50-59 years Male 0-3.90 60-69 years Male 0-5.40 70-79 years Male 0-6.20 80-150 years Male 0-6.20 The Art PSA Total assay procedure was used. Results from different manufacturers or methods may not be comparable. Serial testing should be performed using the same method. Current interpretive data last revised 22. Testing performed by: [address] [address] Blood 09/09/2024 10:0 7 AM CDT 09/09/2024 5:39 PM CDT Mahesh Llamas MD LAB BLOOD ORDERABLES Sally l Result [facility] ([place]) 1 [facility] [place] [place] [address] * (ABNORMAL) Hemoglobin A1c (09/09/2024 10:07 AM CDT) [facility] Hgb A1C 6.5(H) 4.0 - 5.6 % Comment:Testing performed by : [address] [address] Estimated Average Glucose 140 mg/dL [facility] ([place]) Comment: The ADA recommends reporting an estimated Average Glucose (eAG) with all Hemoglobin A1c results using the equation derived from a study of 507 normal and diabetic adults. Minority populations were underrepresented and children were not included. (Diabetes Care 31:2748-2479, 2008). The eAG is not equivalent to a fasting glucose. Testing performed by: [address] [address] Blood 09/09/2024 10:0 7 AM CDT 09/09/2024 5:39 PM CDT Mahesh Llamas MD LAB BLOOD ORDERABLES Sally l Result [facility] ([place]) 1 [facility] [place] [place] [address] * Lipid panel (09/09/2024 10:07 AM CDT) Cholesterol 96 30 - 199 mg/dL Comment: Interpretive Data Ages < or = 19 years Acceptable: <170 mg/dL Borderline high: 170-199 mg/dL High: >or= 200 mg/dL Ages > or = 20 years Desirable: <200 mg/dL Borderline high: 200-239 mg/dL High: >or= 240 mg/dL Literature References: 1. Expert Panel on Integrated Guidelines for Cardiovascular Health and Risk Reduction in Children and Adolescents. Pediatrics 2011;128:S213 2. NCEP Expert Panel. Circulation 2004;110:227 Current Interpretive Data was last revised on 2018. Testing performed by: [facility], [address] [place] [address]., [id number] Triglycerides 63 <=149 mg/dL [facility] ([place]) Comment: Interpretive Data Ages < or = 9 years Acceptable: <75 mg/dL Borderline high: 75-99 mg/dL High: >or= 100 mg/dL Ages 10 to 20 years Acceptable: <90 mg/dL Borderline high: 90-129 mg/dL High: >or= 130 mg/dL Ages > or = 20 years Desirable: <150 mg/dL Borderline high: 150-199 mg/dL High: 200-499 mg/dL Very high: >or= 499 mg/dL Literature References: 1. Expert Panel on Integrated Guidelines for Cardiovascular Health and Risk Reduction in Children and Adolescents. Pediatrics 2011;128:S213 2. NCEP Expert Panel. Circulation 2004;110:227 Current Interpretive Data was last revised on 2018. Testing performed by: [facility], [address] [place] [address], [place]., [address] HDL 43 >=40 mg/dL [facility] ([place]) Comment: Interpretive Data Ages < or = 19 years Acceptable: >45 mg/dL Borderline low: 40-45 mg/dL Low: <40 mg/dL Ages > or = 20 years Desirable: >or= 60 mg/dL Low: <40 mg/dL Literature References: 1. Expert Panel on Integrated Guidelines for Cardiovascular Health and Risk Reduction in Children and Adolescents. Pediatrics 2011;128:S213 2. NCEP Expert Panel. Circulation 2004;110:227 Current Interpretive Data was last revised on 2018. Testing performed by: [facility], [address] [place] [address], [place]., [address] LDL, calculated 39 <=129 mg/dL [facility] ([place]) Comment: Interpretive Data Ages < or = 19 years Acceptable: <110 mg/dL Borderline high: 110-129 mg/dL High: >or= 130 mg/dL Ages > or = 20 years Optimal: <100 mg/dL Near optimal: 100-129 mg/dL Borderline high: 130-159 mg/dL High: >160 mg/dL Calculated using the Jimbo LDL-C estimating equation. This equation was implemented on 2024. Prior to this date LDL-C was estimated using the Friedewald equation. Literature References: 1. Expert Panel on Integrated Guidelines for Cardiovascular Health and Risk Reduction in Children and Adolescents. Pediatrics 2011;128:S213 2. NCEP Expert Panel. Circulation 2004;110:227 3. Jimbo Castro et al. SALLY Cardiol. 2019March 12;5(5):540-548. doi: [email or web address] Current Interpretive Data was last revised on 2024. Testing performed by: [address] [address] Non-HDL Cholesterol 53 mg/dL [facility] ([place]) Comment: Interpretive Data Ages < or = 19 years Acceptable: <120 mg/dL Borderline high: 120-144 mg/dL High: >145 mg/dL Ages > or = 20 years When triglycerides are >200 mg/dL, Non-HDL cholesterol is a secondary target of therapy with treatment goals that are 30 mg/dL greater than the LDL cholesterol target. Literature References: 1. Expert Panel on Integrated Guidelines for Cardiovascular Health and Risk Reduction in Children and Adolescents. Pediatrics 2011;128:S213 2. NCEP Expert Panel. Circulation 2004;110:227 Current Interpretive Data was last revised on 2018. Testing performed by: [facility], [address] [place] [address]., [address] Chol/HDL ratio 2 [facility]NAL[facility] ([place]) Comment:Testing performed by : [facility], [address] [place] [address]., [id number] Blood 09/09/2024 10:0 7 AM CDT 09/09/2024 5:39 PM CDT Mahesh Llamas MD LAB BLOOD ORDERABLES Sally l Result Performing Organization Address [facility] Campus/[facility]/ZIP Co de Phone Number ROHAN CUEVAS ([place]) 1 [facility] [place] [address] * Albumin Creatinine Ratio, Urine (01/10/2024 8:58 AM RETAIL TEAM LEADER) Albumin Ur <12.0 mg/L [facility] ([place]) Comment: Interpretive Data No reference range established. Current interpretive data was last revised 2019. Testing performed by: [facility], [address] [place] [address]., [id number] Creatinine Ur 124.5 mg/dL [facility] ([place]) Comment: Interpretive Data No reference range established. Current interpretive data was last revised 2019. Testing performed by: [address] [address] Albumin Creatinine Ratio, Ur <10 1 - 29 mg/g [facility] ([place]) Comment:Testing performed by : [facility], [address] [place] [address]., [id number] Urine 01/10/2024 8:58 AM RETAIL TEAM LEADER 01/10/2024 11:37 AM RETAIL TEAM LEADER Narrative [facility] ([place]) - 01/10/2024 1:44 PM RETAIL TEAM LEADER fasting Result [facility] Hakan Mccormick MD LAB URINE ORDERABLES Final R esult Performing Organization Address [facility]/ZIP Co de Phone Number ROHAN CUEVAS ([place]) 1 [facility] [place] [address] * DIABETES FOOT EXAM (01/25/2017) Diabetic Foot Exam Unknown Historical Provider HEALTH MAINTENANCE Final Result * COLONOSCOPY IMAGES (01/15/2015) Anatomical Region Laterality Modality Other Narrative 01/15/2015 Ordered by an unspecified provider. Historical Francoise VILLA GI PROCEDURE ORDERABLES F inal Result from Last 3 Months or Most Recently Relevant to Health Maintenance Insurance MEDICARE [facility] MEDICARE [facility] MEDICARE [facility] Advance Directives For more information, please contact: [phone] Documents on File Type Date Recorded Patient Licensed Tax Consultant Expl anation ADVANCE DIRECTIVE 05/11/2025 11:04 AM Geetha nicola Will ADVANCE DIRECTIVE 05/11/2025 11:04 AM Raymon r of Retail Customer Service Representative-Medical * LIMITED - No CPR (Latest Code Status on File) Date Activated Date Inactivated Comments 05/03/2025 2:33 PM 05/08/2025 6:44 PM Question Answer Comments Provide aggressive medical m anagement before a full cardiopulmonary arrest occurs. Use antibiotics, IV Fluids, and medical treatment unless specifically selected below: No intubation * LIMITED - No CPR Date Activated Date Inactivated Comments 05/03/2025 1:52 PM 05/03/2025 2:33 PM * LIMITED - No CPR Date Activated Date Inactivated Comments 01/01/2025 4:01 PM 01/05/2025 8:33 PM Question Answer Comments Provide aggressive medical m anagement before a full cardiopulmonary arrest occurs. Use antibiotics, IV Fluids, and medical treatment unless specifically selected below: No intubationNo non-invasive ventilationNo cardioversion * Full Code Date Activated Date Inactivated Comments 01/01/2025 12:17 AM 01/01/2025 4:01 PM * Full Code Date Activated Date Inactivated Comments 03/03/2024 3:46 PM 03/06/2024 5:39 PM Care Teams Educational Diagnostician Relationship Specialty Start Date End Date Mahesh Llamas MD [address] [place] [address] PCP - General Family Medicine 06/12/24 Maria Esther Montemayor, OT Occupational Therapist Occupational Therapy 09/21/22
--- OUTSIDE RECORDS SUMMARY | 2025-05-25 12:25 | XMS_ITS | Referral Summary ---
Author Organization [facility] Address [address] [place] [address] Care Team Providers Care Pet Counselor Name Role Phone Maria Esther Montemayor OT Mahesh Gomez MD Primary Care Provider [phone] Encounters Date Type Department Care Team Description 05/08/2025 2:54 PM CDT - 05/08/2025 11:59 PM CDT Hospital Encounter [facility] Emergency, Room R Discharge Disposition: Discharge to home or self care 05/03/2025 8:53 AM CDT - 05/08/2025 2:44 PM CDT Hospital Encounter [facility] [address] [place] [id number] Bob Albert MD Nikolic, Jelena, MD Kheirkhahan, [...] SNF 05/03/2025 8:17 AM CDT Hospital Encounter [facility] 04/14/2025 1:30 PM CDT Office Visit [facility] at [facility] [address] [place] [phone] Bernard Martinez MD Paroxysmal atrial fibrillation (HCC) (Primary Dx) 02/25/2025 8:00 AM CDT Ancillary Procedure [facility]el C[facility]rer [address] [place] [phone] SSS (sick sinus syndrome) (HCC); Cardiac pacemaker in situ; Paroxysmal atrial fibrillation (HCC) from Last 3 Months Allergies Active Allergy Reactions Criticality Noted Date Comments Iodinated Contrast Media Nausea & Vomiting,Other (See comments) High 05/01/2011 Vomiting and chest pain Iodine Other (See comments) Reaction: Unknown, Ioversol Other (See comments) Reaction: Unknown, Sulfa Unknown 05/03/2025 Medications aspirin 81 mg enteric coated tablet Take 1 tablet (81 mg total) by mouth daily Active vitamin H85-mzzkt acid 0.5-1 mg tablet Take 1 tablet [...] MG TO TOTAL 90 MG DAILY 03/29/20 Active carvediloL (COREG) 6.25 mg tablet TAKE [...] 10/11/2023 Assessment & Plan (10/11/2023 3:31 PM BEAN WEIGHER): Acute problem- this is a new problem [...] 06/21/2020 Assessment & Plan (01/18/2024 11:06 AM BEAN WEIGHER): Check thyroid studies again due to anemia and call back for results Assessment & Plan (07/10/2023 2:32 PM CDT): Remains asymptomatic and will check TSH and free T4 in 1 year. Assessment & Plan (01/08/2023 1:39 PM BEAN WEIGHER): Check TSH and FT4 before next visit. [...] mg Assessment & Plan (01/18/2024 11:06 AM BEAN WEIGHER): Rate controlled on carvedilol and will continue anticoagulation based on adjunct nursing faculty's recommendations. Assessment & Plan (07/10/2023 2:30 PM CDT): Rate controlled on carvedilol and will continue anticoagulation per his adjunct nursing faculty recommendations. Assessment & Plan (07/10/2022 1:40 PM CDT): Rate controlled will continue anticoagulation per his adjunct nursing faculty recommendations Assessment & Plan (10/24/2021 2:41 PM BEAN WEIGHER): Rate controlled on carvedilol and will continue anticoagulation per his adjunct nursing faculty. Assessment & Plan (07/07/2021 1:42 PM CDT): Rate controlled on beta-robyn will continue Xarelto for anticoagulation. Assessment & Plan (01/06/2021 7:51 PM BEAN WEIGHER): Rate controlled on beta-robyn and continue Xarelto for anticoagulation. Assessment & Plan (10/29/2020 2:25 PM BEAN WEIGHER): Rate controlled on his beta-robyn and will continue Xarelto for anticoagulation. Assessment & Plan (06/21/2020 10:17 AM CDT): Continue Xarelto for anticoagulation through his adjunct nursing faculty office and rate is currently well controlled on his metoprolol Chronic left shoulder pain 11/24/2019 Assessment & Plan (11/24/2019 12:02 PM BEAN WEIGHER): X-rays show osteoarthritis. Examination shows possible impingement syndrome. Orthopedic referral for further evaluation. SSS (sick sinus syndrome) 11/14/2019 Assessment & Plan (11/14/2019 1:52 PM BEAN WEIGHER): Last interrogation showed 9% A pace, 12% V pace frequent PAF with burden 40%, MARIO 7.3 years Lymphedema due to venous insufficiency 9 Overview (06/21/2020): Discharged from [facility]; pump + velcro compression bandages. 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 for possible lower extremity infection Assessment & Plan (01/18/2024 11:06 AM BEAN WEIGHER): Encouraged strict compliance with his wrappings and [...] pump. Assessment & Plan (10/24/2021 2:41 PM BEAN WEIGHER): He has some skin breakdown on his left lower extremity and will refer to [facility] wound care center for further evaluation. He may need to go back to [facility] for chronic management of his lymphedema. Assessment & Plan (07/07/2021 1:42 PM CDT): Continue pump and Velcro compression bandages and return to [facility] as needed. Assessment & Plan (06/21/2020 10:17 AM CDT): He should be more compliant with his pump and Velcro compression bandages. Assessment & Plan (11/24/2019 12:01 PM BEAN WEIGHER): Patient should follow-up with the lymphedema clinic and follow their directions. Assessment & Plan (07/24/2019 5:01 PM CDT): Referral to [facility] lymphedema clinic. Will see him back in about a month for his missed follow-up examination with lab sooner if needed. Basal cell carcinoma (BCC) of right upper arm Overview (05/19/2019): Added automatically from request for surgery [id number] Skin lesion of right upper extremity 05/06/2019 Ventral hernia without obstruction or gangrene 0 04/24/2019 Overview (04/24/2019): Added automatically from request for surgery [id number] Assessment & Plan (07/24/2019 5:00 PM CDT): [...] 03/21/2018 Assessment & Plan (09/18/2024 7:55 PM BEAN WEIGHER): Wound care as discussed. Start on Augmentin b.i.d. times 10 days. Assessment & Plan (01/18/2024 11:06 AM BEAN WEIGHER): Cephalexin for 10 days and call back if no improvement. Assessment & Plan (11/24/2019 12:02 PM BEAN WEIGHER): Resolved after the addition of Bactrim. Return to clinic for recurrent signs of infection. Follow-up with the lymphedema clinic as they direct. Assessment & Plan (11/10/2019 5:45 PM BEAN WEIGHER): Significantly improved since last visit. Patient instructed [...] evaluation. Assessment & Plan (11/10/2019 4:57 PM BEAN WEIGHER): Will add Bactrim 800-160 mg per tab [...] discussed. Assessment & Plan (10/29/2019 2:43 PM BEAN WEIGHER): Recommend in doxycycline 100 mg b.i.d. Times 10 days and follow-up in 1 week. In addition instructed on use of [id number]-[id number] probiotics as well as yogurt to help [...] days follow up here in a week. Vbgj-wxt-mdccsdg probiotics or Guatem[place] yogurt to assist GI upset was discussed. [...] recommended. Assessment & Plan (10/22/2018 2:07 PM BEAN WEIGHER): Patient is encouraged to lose weight with [...] associated with continued morbid obesity discussed. Thrombocytopenia ([facility]/HCC) 02/05/2018 Assessment & Plan (09/18/2024 7:55 PM BEAN WEIGHER): Followed by hematology. Assessment & Plan (01/18/2024 11:05 AM BEAN WEIGHER): Platelet level back to baseline. Currently asymptomatic. Assessment & Plan (07/10/2023 2:33 PM CDT): Asymptomatic. Just below his chronic baseline will check again in 6 months and he should call back if bruising or bleeding develops. Hematology referral if worsens. Assessment & Plan (07/10/2022 1:39 PM CDT): Mild chronic stable and asymptomatic. Check again 1 year. Assessment & Plan (11/30/2021 5:51 PM BEAN WEIGHER): Chronic, stable. SCDs for DVT ppx. Assessment & Plan (10/24/2021 2:40 PM BEAN WEIGHER): Chronic mild stable and asymptomatic Assessment & [...] fall prevention, proper nutrition, and suggested joining [facility] to accomplish most of these goals. Patient [...] 08/02/2017 Assessment & Plan (01/18/2024 11:07 AM BEAN WEIGHER): Recheck B12 level along with iron panel, [...] year. Assessment & Plan (01/06/2021 7:51 PM BEAN WEIGHER): Continue B12 supplementation. Assessment & Plan (06/21/2020 [...] medication. Assessment & Plan (01/06/2021 7:51 PM BEAN WEIGHER): Remains stable without medication. Assessment & Plan (06/21/2020 10:17 AM CDT): Remains stable without medication. Assessment & Plan (08/25/2019 3:19 PM CDT): Remains stable without medication. Assessment & Plan (03/05/2019 9:51 AM CDT): Stable without medication. Assessment & Plan (10/22/2018 2:06 PM BEAN WEIGHER): Stable without medication. Assessment & Plan (07/15/2018 9:35 PM CDT): Declines need for medication Assessment & Plan (02/05/2018 5:51 PM CDT): Stable without medication. Edema of both legs 08/02/2017 Assessment & Plan (11/30/2021 5:50 PM BEAN WEIGHER): Secondary to lynphedema. Chronic, stable. ProBNP is normal. Follows with Dr. Baeza as outpatient. Assessment & Plan (10/29/2020 2:25 PM BEAN WEIGHER): He knows to be more compliant with [...] level or above, find some sequential stockings [id number] to see if that can assist with [...] NOS Assessment & Plan (09/18/2024 7:54 PM BEAN WEIGHER): BP at goal 110/70. Continue present medications. Assessment & Plan (06/25/2024 12:57 PM CDT): Stable, well controlled, blood pressure goal; no chest pain or pressure; no headaches Continue carvedilol 6.25 mg daily Assessment & Plan (01/18/2024 11:05 AM BEAN WEIGHER): Blood pressure well controlled on carvedilol, chlorthalidone, lisinopril Assessment & Plan (07/10/2023 2:31 PM CDT): Blood pressure well controlled on carvedilol, chlorthalidone, lisinopril Assessment & Plan (01/08/2023 1:39 PM BEAN WEIGHER): Blood pressure well controlled on chlorthalidone, lisinopril Assessment & Plan (07/10/2022 1:40 PM CDT): Well controlled on the current regimen. Avoidance of salt, proper body weight, and routine exercise recommended. Assessment & Plan (02/23/2022 1:55 PM CDT): Well controlled on the current regimen. Avoidance of salt, proper body weight, and routine exercise recommended. Assessment & Plan (12/09/2021 10:30 AM BEAN WEIGHER): Well controlled on the current regimen. Avoidance of salt, proper body weight, and routine exercise recommended. Assessment & Plan (11/30/2021 5:49 PM BEAN WEIGHER): Home meds resumed, BP is well controlled. Will hold beta robyn as stress test planned for tomorrow. Continue to monitor. Assessment & Plan (10/24/2021 2:40 PM BEAN WEIGHER): Well controlled on the current regimen. Avoidance of salt, proper body weight, and routine exercise recommended. Consider restarting low-dose lisinopril if micro and creatinine ratio raise in the future. Assessment & Plan (07/07/2021 1:41 PM CDT): Well controlled on the current regimen. Avoidance of salt, proper body weight, and routine exercise recommended. Assessment & Plan (01/06/2021 7:51 PM BEAN WEIGHER): Well controlled on the current regimen. Avoidance of salt, proper body weight, and routine exercise recommended. Assessment & Plan (10/29/2020 2:25 PM BEAN WEIGHER): Continue holding lisinopril. Call back if blood pressures elevate consistently near 140/90 so we can restart lisinopril 5 mg daily. He is to check with adjunct nursing faculty regarding which beta-robyn he should be on. We may need to cut down his chlorthalidone or furosemide in the future. Assessment & Plan (06/21/2020 10:17 AM CDT): Well controlled on the current regimen. Avoidance of salt, proper body weight, and routine exercise recommended. Assessment & Plan (11/24/2019 11:58 AM BEAN WEIGHER): Well controlled on the current regimen. Avoidance [...] recommended. Assessment & Plan (10/22/2018 2:06 PM BEAN WEIGHER): Well controlled on the current regimen. Avoidance [...] NEC/NOS Assessment & Plan (01/18/2024 11:05 AM BEAN WEIGHER): Well controlled on current therapy and will check a lipid panel and LFTs in 6 months. Assessment & Plan (07/10/2023 2:31 PM CDT): Well controlled on current therapy and will check a lipid panel and LFTs in 6 months. Assessment & Plan (01/08/2023 1:39 PM BEAN WEIGHER): Well controlled on current therapy and will [...] months. Assessment & Plan (12/09/2021 10:31 AM BEAN WEIGHER): Continue his atorvastatin check lipids and LFTs before next visit. Assessment & Plan (10/24/2021 2:40 PM BEAN WEIGHER): Well controlled on current therapy and will check a lipid panel and LFTs in 6 months. Assessment & Plan (07/07/2021 1:41 PM CDT): Well controlled on current therapy and will check a lipid panel and LFTs in 6 months. Assessment & Plan (01/06/2021 7:51 PM BEAN WEIGHER): Well controlled on current therapy and will [...] months. Assessment & Plan (10/22/2018 2:06 PM BEAN WEIGHER): Well controlled on current therapy and will [...] and LFTs in 6 months. Atherosclerosis of [place] co ronary artery of [place] heart with stable angina pectoris 03/28/2014 Overview (02/15/2017): COR ATH UNSP VSL NTV/GFT Assessment & Plan (06/25/2024 12:56 PM CDT): Stable, well controlled, catheterization in 2021 Continue ASA 81 mg daily, atorvastatin 40 mg daily, carvedilol 6.25 mg b.i.d., Imdur 60 mg daily Assessment & Plan (01/18/2024 11:04 AM BEAN WEIGHER): Continue continue current medication regimen follow up with his adjunct nursing faculty as they direct Assessment & Plan (07/10/2023 2:30 PM CDT): Continue current medication regimen and follow up with his adjunct nursing faculty as they direct Assessment & Plan (07/10/2022 1:40 PM CDT): Continue current medication regimen follow up with adjunct nursing faculty as they direct Assessment & Plan (12/09/2021 10:30 AM BEAN WEIGHER): Recent catheterization without need for intervention. Continue current medication regimen and follow up with adjunct nursing faculty as they direct. Assessment & Plan (07/07/2021 1:41 PM CDT): Continue current medication regimen and follow up with adjunct nursing faculty as they direct. Assessment & Plan (01/06/2021 7:52 PM BEAN WEIGHER): Continue current medication regimen and follow up with adjunct nursing faculty as they direct. Assessment & Plan (06/21/2020 10:18 AM CDT): Continue current medication regimen follow up with adjunct nursing faculty as they direct. Assessment & Plan (11/14/2019 1:50 PM BEAN WEIGHER): Pt currently denies any chest pain or shortness of breath Assessment & Plan (08/25/2019 3:19 PM CDT): Continue aspirin, atorvastatin, carvedilol, isosorbide mononitrate, lisinopril, Xarelto and follow up with adjunct nursing faculty as they direct. Assessment & Plan (05/04/2019 2:10 PM CDT): Continue aspirin, atorvastatin, carvedilol, isosorbide mononitrate, lisinopril and follow up with adjunct nursing faculty as they direct. I Have asked him [...] nitroglycerin p.r.n. and follow up with his adjunct nursing faculty as they direct Assessment & Plan (08/02/2017 2:51 PM CDT): Continue current medication regimen and follow up with adjunct nursing faculty as he directs. Degeneration of intervertebral disc of cervical region 03/28/2014 Overview (02/15/2017): DDD (degenerative disc disease), cervical History of prostate cancer 03/28/2014 Overview (02/05/2018): Davinci prostatectomy [address] gonzalez. Assessment & Plan (01/18/2024 11:05 AM BEAN WEIGHER): Recommend PSA checks once yearly. Assessment & Plan (07/10/2023 2:31 PM CDT): PSA remains undetectable and will check again 1 year. Assessment & Plan (10/24/2021 2:40 PM BEAN WEIGHER): PSA undetectable. Assessment & Plan (07/07/2021 1:41 [...] & Plan (02/05/2018 5:50 PM CDT): Claritin p.rInan. Carpal tunnel syndrome 07/18/2012 Overview (02/15/2017): Carpal [...] weekly Assessment & Plan (01/18/2024 11:07 AM BEAN WEIGHER): A1c, LDL, and blood pressure currently well [...] abnormal. Assessment & Plan (01/08/2023 1:38 PM BEAN WEIGHER): A1c, LDL, and blood pressure currently well [...] abnormal. Assessment & Plan (11/30/2021 5:48 PM BEAN WEIGHER): On Metformin and Trulicity at home. Here initiated on insulin basal bolus regimen per hospital protocol. Monitor accuchecks on SSI, titrate regimen as needed. Assessment & Plan (10/24/2021 2:40 PM BEAN WEIGHER): A1c, LDL, and blood pressure currently well controlled on current regimen. Check a yearly diabetic eye exam and blood sugars daily. Monofilament testing is intact. Assessment & Plan (07/07/2021 1:41 PM CDT): A1c up trending and we discussed importance of diet exercise and weight loss. Continue his metformin Trulicity and repeat A1c before next visit. Assessment & Plan (01/06/2021 7:51 PM BEAN WEIGHER): A1c, LDL, and blood pressure currently well [...] . Assessment & Plan (10/22/2018 2:06 PM BEAN WEIGHER): A1c, LDL, and blood pressure currently well [...] 05/05/2025 Assessment & Plan (12/09/2021 10:30 AM BEAN WEIGHER): No recurrences since discharge. Unremarkable coronary catheterization. Follow up Cardiology as they direct. Assessment & Plan (11/30/2021 5:47 PM BEAN WEIGHER): Pt with significant cardiac history, presenting with [...] (02/17/2017): Hypersomnia with sleep apnea Cellulitis 06/21/2020 Immunizations Immunization Administration Dates Next Due Influenza, [...] Pneumococcal Polysaccharide PPV23 09/02/2014,,04/27/2010 Td, adsorbed 07/06/2009 Social History Tobacco Use Types Packs/Day Years Used Date Smoking Tobacco: Never Smokeless Tobacco: Never Tobacco Cessation:Counseling Given: Not Answered Alcohol Use Standard Drinks/Week Comments No 0 (1 standard drink = 0.6 oz pur e alcohol) [facility] Utilities Answer Date Recorded In the past 12 months has th e electric, gas, oil, or water company threatened to shut off services in your home? No 05/04/2025 Social Connection and Isolation Panel [NHANES] A nswer Date Recorded In a typical week, how many times do you talk on the phone with family, friends, or neighbors? Once a week 05/04/2025 How often do you get together with friends or re latives? Once a week 05/04/2025 How often do you attend presybeterian or restorationist serv ices? Never 05/04/2025 Do you belong to any clubs o r organizations such as presybeterian groups, unions, fraternal or athletic groups, or [...] place to sleep or slept in a assisted (including now)? No 03/04/2024 Housing Stability Vital Sign Answer Damien e Recorded In the last 12 months, was t here a time when you were not able to pay the mortgage or rent on time? No 05/04/2025 In the past 12 months, how m any times have you moved where you were living? 0 05/04/2025 At any time in the past 12 m [facility], were you homeless or living in a assisted (including now)? No 05/04/2025 Personal Safety Answer [...] on file Legal Sex Male 11:50 PM BEAN WEIGHER Gender Identity Not on file Sexual Orientation [...] 05/04/2025 4:27 PM CDT Plan of Treatment Not on file Medical Devices Implanted Type Area Yard Pipe Grader Device Identifier Shelf Expiration Date Model / Serial / Lot Pacemaker Pacemaker Left: Chest Stent Stent N/A: Heart Description:Multiple [employer]/C R Bard [id number] Ventralight St Sepra 8x6in Uncoated Monofilament Lightweight - [id number] Implanted:Qty: 1 on 06/30/2019 by Hany Pereira MD at [facility] N/A: Abdomen [employer] Bard 09/08/2020 [id number] / / [id number] Daig Uzma/[employer] [id number] Angio-Seal Evolution 6fr .035in Guidewire Bypass Tube Suture - [id number] Implanted:Qty: 1 on 12/02/2021 by Virgen Vallecillo MD at [facility] [employer] Uzma 08/11/2022 [id number] / / Procedures Procedure Name Priority Date/Time [...] EYE EXAM Routine 10/13/2024 2:0 6 PM BEAN WEIGHER HEMOGLOBIN A1C Routine 09/09/2024 10:07 AM CDT Type 2 diabetes mellitus with diabetic polyneuropathy, without long-term current use of insulin (HCC) LIPID PANEL Routine 09/09/2024 10:07 AM CDT Hypertension, essential PSA SCREEN Routine 09/09/2024 10:07 AM CDT Screening PSA (prostate specific antigen) ALBUMIN CREATININE RATIO, URINE Routine 01/10/2024 8:58 AM BEAN WEIGHER Hypertension, essential Mixed hyperlipidemia Type 2 diabetes [...] ORDERABLES - DE VICE Final Result ROHAN KruseLEFLORE) [address] [place] [address] * POCT glucose (05/08/2025 7:54 AM CDT) Glucose, POC 107 70 - 199 mg/dL Blood 05/08/2025 7:54 AM CDT 05/08/2025 7:54 AM CDT Roseann Cui DO LAB POCT ORDERABLES - DE VICE Final Result Performing Organization Address [facility] Co de Phone Number ROHAN CUEVAS ([place]) [address] [place] [address] * eGFR (05/08/2025 4:54 AM CDT) eGFR [...] CDT 05/08/2025 5:15 AM CDT us Roseann Ayla Basilia DO LAB BLOOD ORDERABLES Fin al Result ROHAN CUEVAS ([place]) 1 [facility] Department [place] [address] * Differential, auto (05/08/2025 4:54 AM CDT) Neutrophil abs 2.57 1.50 - 6.50 K/cumm Imm gran abs 0.08 0.00 - 0.10 K/cumm [facility] ([place]) Lymphocyte abs 1.13 0.80 - 3.30 K/cumm [facility] ([place]) Monocyte abs 0.47 0.20 - 0.80 K/cumm [facility] ([place]) Eosinophil abs 0.29 0.00 - 0.50 K/cumm [facility] ([place]) Basophil abs 0.02 0.00 - 0.10 K/cumm [facility] ([place]) Neutrophil pct 56.3 % [facility] ([place]) Comment: Interpretive Data Percent cell count reference ranges are not reported, since discordance with absolute values may lead to misinterpretation of CBC data. Current Interpretive Data was last revised on 2018. Imm gran pct 1.8 % [facility] ([place]) Comment: Interpretive Data Percent cell count reference [...] revised on 2018. Monocyte pct 10.3 % [facility] ([place]) Comment: Interpretive Data Percent cell count reference [...] revised on 2018. Basophil pct 0.4 % [facility] ([place]) Comment: Interpretive Data Percent cell count reference ranges are not reported, since discordance with absolute values may lead to misinterpretation of CBC data. Current Interpretive Data was last revised on 2018. Blood 05/08/2025 4:54 AM CDT 05/08/2025 5:02 AM CDT Roseann Cui DO LAB BLOOD ORDERABLES Fin al Result [facility] ([place]) 1 [facility] [place] [address] * (ABNORMAL) CBC with auto differential (05/08/2025 4:54 AM CDT) WBC 4.56 3.80 - 9.90 K/cumm Hgb 11.1(L) 13.0 - 17.5 g/dL [facility] ([place]) Hct 33.4(L) 38.9 - 50.3 % [...] AM CDT 05/08/2025 5:02 AM CDT Roseann Aguila [place] DO LAB BLOOD ORDERABLES Fin al Result ROHAN CUEVAS ([place]) [address] [place] [address] * Phosphorus (05/08/2025 4:54 AM CDT) Phosphorus, pl 2.5 2.3 - 4.5 mg/dL Blood 05/08/2025 4:54 AM CDT 05/08/2025 5:15 AM CDT Roseann Aguila [place]ch[place] DO LAB BLOOD ORDERABLES Fin al Result Performing Organization Address City/[facility]/ZIP Co de Phone Number ROHAN CUEVAS ([place]) [address] [place] [address] * Magnesium (05/08/2025 4:54 AM CDT) Pathologist [facility] Magnesium 1.8 1.4 - 2.5 mg/dL Blood 05/08/2025 4:54 AM CDT 05/08/2025 5:15 AM CDT Roseann Cui DO LAB BLOOD ORDERABLES Fin al Result Performing Organization Address City/[facility]/ZIP Co de Phone Number ROHAN CUEVAS ([place]) [address] [place] [address] * (ABNORMAL) Comprehensive metabolic panel (05/08/2025 4:54 AM CDT) Sodium 137 135 - 145 mmol/L Potassium, pl 3.7 3.3 - 4.9 mmol/L [facility] ([place]) Chloride 105 97 - 110 mmol/L [facility] ([place]) CO2 24 22 - 32 mmol/L [facility] ([place]) Anion gap 8 2 - 15 mmol/L [facility] ([place]) BUN 15 6 - 25 mg/dL [facility] ([place]) Creatinine 0.84 0.80 - 1.30 mg/dL [facility] ([place]) Glucose 125 70 - 199 [...] ([place]) ALT 34 7 - 55 Units/L [facility] ([place]) AST 47 10 - 50 Units/L [facility] ([place]) Blood 05/08/2025 4:54 AM CDT 05/08/2025 5:15 AM CDT Roseann Cui DO LAB BLOOD ORDERABLES Fin al Result ROHAN CUEVAS ([place]) 1 [facility] Department [place] [address] * POCT glucose (05/08/2025 2:31 AM CDT) Glucose, POC 120 70 - 199 mg/dL Blood 05/08/2025 2:31 AM CDT 05/08/2025 2:31 AM CDT Roseann Cui DO LAB POCT ORDERABLES - DE VICE Final Result ROHAN CUEVAS ([place]) 1 [facility] [employer] [place] [address] * POCT glucose (05/07/2025 9:02 PM CDT) Glucose, POC 139 70 - 199 mg/dL Blood 05/07/2025 9:02 PM CDT 05/07/2025 9:02 PM CDT Roseann Cui DO LAB POCT ORDERABLES - DE VICE Final Result ROHAN CUEVAS ([place]) 1 [facility] [place] [address] * POCT glucose (05/07/2025 4:53 PM CDT) Glucose, POC 115 70 - 199 mg/dL Blood 05/07/2025 4:53 PM CDT 05/07/2025 4:53 PM CDT Roseann Cui DO LAB POCT ORDERABLES - DE VICE Final Result ROHAN CUEVAS ([place]) 1 [facility] [employer] [place] [address] * POCT glucose (05/07/2025 11:50 AM CDT) Glucose, POC 169 70 - 199 mg/dL Blood 05/07/2025 11:5 0 AM CDT 05/07/2025 11:50 AM CDT Roseann Cui DO LAB POCT ORDERABLES - DE VICE Final Result ROHAN CUEVAS ([place]) 1 [facility] [place] [address] * Differential, auto (05/07/2025 9:38 AM CDT) [...] Fin al Result [facility] ([place]) 1 [facility] [employer] [place] [address] * (ABNORMAL) CBC with auto differential (05/07/2025 [...] ([place]) MCHC 34.3 32.3 - 35.7 g/dL [facility] ([place]) RDW CV 17.8(H) 11.1 - 14.9 % [facility] ([place]) RDW SD 59.4(H) 35.7 - 48.1 fL [facility] ([place]) NRBC abs 0.00 0.00 - 0.01 K/cumm [facility] ([place]) Blood 05/07/2025 9:38 AM CDT 05/07/2025 9:43 AM CDT Narrative [facility] ([place]) - 05/07/2025 9:46 AM CDT Reorder, morning draw was hemolyzed Roseann Cui DO LAB BLOOD ORDERABLES Fin al Result ROHAN CUEVAS ([place]) 1 [facility] [employer] [place] [address] * POCT glucose (05/07/2025 7:37 AM CDT) Glucose, POC 108 70 - 199 mg/dL Blood 05/07/2025 7:37 AM CDT 05/07/2025 7:37 AM CDT us Roseann Cui DO LAB POCT ORDERABLES - DE VICE Final Result ROHAN CUEVAS ([place]) 1 [facility] [place] [address] * (ABNORMAL) Lactate (05/07/2025 5:13 AM CDT) Pathologist [facility] Lactate 2.1(H) 0.7 - 2.0 mmol/L Blood 05/07/2025 5:13 AM CDT 05/07/2025 5:29 AM CDT us Mi Colon MD LAB BLOOD ORDERABLES Fi nal Result [facility] ([place]) 1 [facility] Department [place] [employer] [place] [address] * eGFR (05/07/2025 5:13 AM CDT) eGFR [...] AM CDT 05/07/2025 5:40 AM CDT Roseann Ayla LynnSpectraseis DO LAB BLOOD ORDERABLES Fin al Result Performing Organization Address City/[facility]/ZIP Co de Phone Number ROHAN CUEVAS ([place]) 1 [place] [address] * Phosphorus (05/07/2025 5:13 AM CDT) Phosphorus, pl 2.4 2.3 - 4.5 mg/dL Blood 05/07/2025 5:13 AM CDT 05/07/2025 5:[address] [facility] LAB BLOOD ORDERABLES Fin al Result Performing Organization Address [facility]/RUST de Phone Number ROHAN CUEVAS ([place]) 1 [place] [address] * Magnesium (05/07/2025 5:13 AM CDT) Magnesium 1.7 1.4 - 2.5 mg/dL Blood 05/07/2025 5:13 AM CDT 05/07/2025 5:[address] [facility] Ayla [facility] DO LAB BLOOD ORDERABLES Fin al Result Performing Organization Address [facility] Co de Phone Number ROHAN CUEVAS ([place]) 1 [facility] [employer] [place] [address] * (ABNORMAL) Comprehensive metabolic panel (05/07/2025 5:13 AM CDT) Sodium 139 135 - 145 mmol/L Potassium, pl 3.9 3.3 - 4.9 mmol/L [facility] ([place]) Chloride 106 97 - 110 mmol/L [facility] ([place]) CO2 21(L) 22 - 32 mmol/L [facility] ([place]) Anion gap 11 2 - 15 mmol/L [facility] ([place]) BUN 19 6 - 25 mg/dL [facility] ([place]) Creatinine 0.81 0.80 - 1.30 mg/dL [facility] ([place]) Glucose 112 70 - 199 mg/dL [facility] ([place]) [...] 5:13 AM CDT 05/07/2025 5:40 AM CDT us Roseann Cui DO LAB BLOOD ORDERABLES Fin al Result [facility] ([place]) 1 [facility] [place] [address] * POCT glucose (05/07/2025 2:00 AM CDT) Glucose, POC 130 70 - 199 mg/dL Blood 05/07/2025 2:00 AM CDT 05/07/2025 2:00 AM CDT Roseann Cui DO LAB POCT ORDERABLES - DE VICE Final Result ROHAN CUEVAS ([place]) 1 [facility] [place] [place] [address] * POCT glucose (05/06/2025 7:53 PM CDT) Glucose, POC 108 70 - 199 mg/dL Blood 05/06/2025 7:53 PM CDT 05/06/2025 7:53 PM CDT Roseann Cui DO LAB POCT ORDERABLES - DE VICE Final Result Performing Organization Address City/[facility]/ZIP Co de Phone Number ROHAN CUEVAS ([place]) 1 [facility] [place] [place] [address] * POCT glucose (05/06/2025 4:43 PM CDT) Glucose, POC 113 70 - 199 mg/dL Blood 05/06/2025 4:43 PM CDT 05/06/2025 4:43 PM CDT Roseann Cui DO LAB POCT ORDERABLES - DE VICE Final Result Performing Organization Address City/[facility]/ZIP Co de Phone Number ROHAN CUEVAS ([place]) 1 [facility] [place] [place] [address] * POCT glucose (05/06/2025 11:29 AM CDT) Glucose, POC 149 70 - 199 mg/dL Blood 05/06/2025 11:2 9 AM CDT 05/06/2025 11:29 AM CDT Roseann Cui DO LAB POCT ORDERABLES - DE VICE Final Result ROHAN CUEVAS ([place]) 1 [facility] [place] [address] * POCT glucose (05/06/2025 7:51 AM CDT) Glucose, POC 117 70 - 199 mg/dL Blood 05/06/2025 7:51 AM CDT 05/06/2025 7:51 AM CDT Roseann Cui DO LAB POCT ORDERABLES - DE VICE Final Result ROHAN CUEVAS ([place]) 1 [place] [address] * eGFR (05/06/2025 7:31 AM CDT) eGFR 87 >=60 mL/min/1. 73 m2 Comment: [...] BLOOD ORDERABLES Fin al Result ROHAN CUEVAS ([place]) 1 [facility] [place] [address] * (ABNORMAL) Differential, auto (05/06/2025 7:31 AM CDT) Neutrophil abs 6.93(H) 1.50 - 6.50 K/cumm Imm gran abs 0.10 0.00 - 0.10 K/cumm [facility] ([place]) Lymphocyte abs 0.70(L) 0.80 - 3.30 K/cumm [facility] ([place]) Monocyte abs 0.51 0.20 - 0.80 K/cumm [...] 2018. Monocyte pct 6.2 % [facility] ([place]) Comment: Interpretive Data [...] ORDERABLES Fin al Result Performing Organization Address City/[facility]/ZIP Co de Phone Number [facility]AN [facility] ([place]) 1 [facility] [place] [address] * (ABNORMAL) CBC with auto differential (05/06/2025 7:31 AM CDT) WBC 8.28 3.80 - 9.90 K/cumm Hgb 10.2(L) 13.0 - 17.5 g/dL [facility] ([place]) Hct 30.4(L) 38.9 - 50.3 % [facility] ([place]) Plt 67(L) 150 - 400 K/cumm [facility] ([place]) MPV 11.8 9.1 - 12.3 fL [facility] ([place]) RBC 3.27(L) 4.30 - 5.80 M/cumm [facility] ([place]) MCV 93.0 81.3 - 96.4 fL [facility] ([place]) MCH 31.2 27.1 - 33.3 pg [facility] ([place]) MCHC 33.6 32.3 - 35.7 g/dL [facility] ([place]) RDW CV 17.7(H) 11.1 - 14.9 % [facility] ([place]) RDW SD 60.3(H) 35.7 - 48.1 fL [facility] ([place]) NRBC abs 0.00 0.00 - 0.01 K/cumm [facility] ([place]) Blood 05/06/2025 7:31 AM CDT 05/06/2025 8:17 AM CDT Roseann Cui DO LAB BLOOD ORDERABLES Fin al Result Performing Organization Address City/[facility]/ZIP Co de Phone Number [facility]AN [facility] ([place]) 1 [facility] [place] [address] * (ABNORMAL) Phosphorus (05/06/2025 7:31 AM CDT) Pathologist [facility] Phosphorus, pl 2.2(L) 2.3 - 4.5 mg/dL Blood 05/06/2025 7:31 AM CDT 05/06/2025 8:17 AM CDT Roseann Ayla LynnSpectraseis DO LAB BLOOD ORDERABLES Fin al Result ROHAN CUEVAS ([place]) 1 [facility] [place] [address] * Magnesium (05/06/2025 7:31 AM CDT) [facility] Magnesium 1.8 1.4 - 2.5 mg/dL Blood 05/06/2025 7:31 AM CDT 05/06/2025 8:17 AM CDT Roseann Cui DO LAB BLOOD ORDERABLES Fin al Result Performing Organization Address City/[facility]/ZIP Co de Phone Number ROHAN CUEVAS ([place]) 1 [facility] [place] [place] [address] * (ABNORMAL) Comprehensive metabolic panel (05/06/2025 7:31 AM CDT) [facility] Sodium 137 135 - 145 mmol/L Potassium, pl 4.1 3.3 - 4.9 mmol/L [facility] ([place]) Chloride 106 97 - 110 mmol/L [facility] ([place]) CO2 23 22 - 32 mmol/L [facility] ([place]) Anion gap 7 2 - 15 mmol/L [facility] ([place]) BUN 20 6 - 25 mg/dL [facility] ([place]) Creatinine 0.87 0.80 - 1.30 mg/dL [facility] ([place]) Glucose 131 70 - 199 mg/dL [facility] ([place]) Comment: Interpretive Data Fasting [...] Fin al Result ROHAN CUEVAS ([place]) 1 [facility] [employer] [place] [address] * POCT glucose (05/06/2025 2:20 AM CDT) Glucose, POC 159 70 - 199 mg/dL Blood 05/06/2025 2:20 AM CDT 05/06/2025 2:20 AM CDT Roseann Cui DO LAB POCT ORDERABLES - DE VICE Final Result ROHAN [facility] ([place]) 1 [facility] [place] [address] * POCT glucose (05/05/2025 8:46 PM CDT) Glucose, POC 198 70 - 199 mg/dL Blood 05/05/2025 8:46 PM CDT 05/05/2025 8:46 PM CDT Roseann BaileySpectraseis DO LAB POCT ORDERABLES - DE VICE Final Result ROHAN CUEVAS ([place]) 1 [facility] [place] [address] * (ABNORMAL) POCT glucose (05/05/2025 4:35 PM CDT) Glucose, POC 208(H) 70 - 199 mg/dL Blood 05/05/2025 4:35 PM CDT 05/05/2025 4:35 PM CDT Roseann Aguila LynnSpectraseis DO LAB POCT ORDERABLES - DE VICE Final Result Performing Organization Address [facility]/ZIP Co de Phone Number [facility]AN [facility] ([place]) 1 [facility] [place] [place] [address] * (ABNORMAL) Sepsis Lactate w/ Reflex (05/05/2025 2:32 PM CDT) Sepsis Lactate 2.8(H) 0.7 - 2.0 mmol/L Blood 05/05/2025 2:32 PM CDT 05/05/2025 2:35 PM CDT Roseann Aguila AddFleet DO LAB BLOOD ORDERABLES Fin al Result [facility]AN [facility] ([place]) 1 [facility] [place] [address] * (ABNORMAL) Sepsis Lactate w/ Reflex (05/05/2025 11:55 AM CDT) Sepsis Lactate 2.2(H) 0.7 - 2.0 mmol/L Blood 05/05/2025 11:5 5 AM CDT 05/05/2025 12:00 PM CDT Roseann Cui DO LAB BLOOD ORDERABLES Fin al Result ROHAN CUEVAS ([place]) 1 [facility] [place] [address] * (ABNORMAL) POCT glucose (05/05/2025 11:32 AM CDT) Pathologist [facility] Glucose, POC 248(H) 70 - 199 mg/dL Blood 05/05/2025 11:3 2 AM CDT 05/05/2025 11:32 AM CDT Roseann Ayla Basilia DO LAB POCT ORDERABLES - DE VICE Final Result Performing Organization Address [facility] Co de Phone Number ROHAN CUEVAS ([place]) 1 [facility] [employer] [place] [address] * (ABNORMAL) Sepsis Lactate w/ Reflex (05/05/2025 8:56 AM CDT) [facility] Sepsis Lactate 2.3(H) 0.7 - 2.0 mmol/L Blood 05/05/2025 8:56 AM CDT 05/05/2025 9:00 AM CDT Roseann Cui DO LAB BLOOD ORDERABLES Fin al Result Performing Organization Address City/[facility]/ZIP Co de Phone Number [facility]OHAN [facility] ([place]) 1 [facility] [place] [place] [address] * eGFR (05/05/2025 8:56 AM CDT) Pathologist [facility] eGFR >90 >=60 mL/min/1. 73 m2 Comment: [...] of Race in Diagnosing Kidney Disease, JASN 202). The CKD-EPI equation should not be used for patients with unstable renal function and has not been validated in children and those over 70. Current interpretive data was last reviewed 2021. Blood 05/05/2025 8:56 AM CDT 05/05/2025 9:00 AM CDT Roseann Cui DO LAB BLOOD ORDERABLES Fin al Result ROHAN CUEVAS ([place]) 1 [facility] [place] [address] * (ABNORMAL) Differential, auto (05/05/2025 8:56 AM [...] Fin al Result [facility]AN [facility] ([place]) 1 [facility] Department of Laboratories [place], [place] [id number] * (ABNORMAL) CBC with auto differential (05/05/2025 8:56 AM CDT) WBC 10.01(H) 3.80 - 9.90 K/cumm Hgb 11.1(L) 13.0 - 17.5 g/dL [facility] ([place]) Hct 33.1(L) 38.9 - 50.3 % [facility] ([place]) Plt 50(L) 150 - 400 K/cumm [facility] ([place]) MPV 12.1 9.1 - 12.3 fL [facility] ([place]) RBC 3.58(L) 4.30 - 5.80 M/cumm [facility] ([place]) MCV 92.5 81.3 - 96.4 fL [facility] ([place]) MCH 31.0 27.1 - 33.3 pg [facility] ([place]) MCHC 33.5 32.3 - 35.7 g/dL [facility] ([place]) RDW CV 17.9(H) 11.1 - 14.9 % [facility] ([place]) RDW SD 61.0(H) 35.7 - 48.1 fL [facility] ([place]) NRBC abs 0.00 0.00 - 0.01 K/cumm [facility] ([place]) Blood 05/05/2025 8:56 AM CDT 05/05/2025 9:00 AM CDT Roseann Cui DO LAB BLOOD ORDERABLES Fin al Result Performing Organization Address City/[facility]/ZIP Co de Phone Number ROHAN CUEVAS ([place]) 1 [facility] [employer] [place] [address] * (ABNORMAL) Phosphorus (05/05/2025 8:56 AM CDT) Phosphorus, pl 2.2(L) 2.3 - 4.5 mg/dL Blood 05/05/2025 8:56 AM CDT 05/05/2025 9:00 AM CDT Roseann Cui DO LAB BLOOD ORDERABLES Fin al Result ROHAN CUEVAS ([place]) 1 [facility] [place] [address] * Magnesium (05/05/2025 8:56 AM CDT) Magnesium 1.9 1.4 - 2.5 mg/dL Blood 05/05/2025 8:56 AM CDT 05/05/2025 9:00 AM CDT Roseann Cui DO LAB BLOOD ORDERABLES Fin al Result [facility] ([place]) 1 [facility] [place] [address] * (ABNORMAL) Comprehensive metabolic panel (05/05/2025 8:56 AM CDT) Sodium 137 135 - 145 mmol/L Potassium, pl 3.9 3.3 - 4.9 mmol/L [facility] ([place]) Chloride 105 97 - 110 mmol/L [facility] ([place]) CO2 19(L) 22 - 32 mmol/L [facility] ([place]) Anion gap 12 2 - 15 mmol/L [facility] ([place]) BUN 16 6 - 25 mg/dL [facility] ([place]) Creatinine 0.71(L) 0.80 - 1.30 mg/dL [facility] ([place]) Glucose 153 70 - 199 mg/dL [facility] ([place]) [...] BLOOD ORDERABLES Fin al Result ROHAN CUEVAS ([place]) 1 [facility] [employer] [place] [address] * POCT glucose (05/05/2025 7:32 AM CDT) Glucose, POC 151 70 - 199 mg/dL Blood 05/05/2025 7:32 AM CDT 05/05/2025 7:32 AM CDT Roseann Cui DO LAB POCT ORDERABLES - DE VICE Final Result Performing Organization Address [facility] Co de Phone Number ROHAN CUEVAS ([place]) 1 [facility] [place] [place] [address] * POCT glucose (05/05/2025 2:11 AM CDT) Glucose, POC 177 70 - 199 mg/dL Blood 05/05/2025 2:11 AM CDT 05/05/2025 2:11 AM CDT Chandni Pritchard MD LAB POCT ORDERABLES - DEVICE Final Result Performing Organization Address City/[facility]/ZIP Co de Phone Number ROHAN CUEVAS ([place]) 1 [facility] [place] [employer] [place] [address] * (ABNORMAL) POCT glucose (05/04/2025 8:06 PM CDT) Glucose, POC 210(H) 70 - 199 mg/dL Blood 05/04/2025 8:06 PM CDT 05/04/2025 8:06 PM CDT Chandni Pritchard MD LAB POCT ORDERABLES - DEVICE Final Result ROHAN CUEVAS ([place]) 1 [facility] [place] [address] * POCT glucose (05/04/2025 4:32 PM CDT) Glucose, POC 195 70 - 199 mg/dL Blood 05/04/2025 4:32 PM CDT 05/04/2025 4:32 PM CDT Chandni Pritchard MD LAB POCT ORDERABLES - DEVICE Final Result ROHAN DARNELL) 1 [facility] [place] [employer] [place] [address] * Blood culture Blood (05/04/2025 12:40 PM CDT) Report Final Report: No growth Comment:Testing performed by : [facility], 1 [place] [address] Blood 05/04/2025 12:4 0 PM CDT 05/04/2025 5:01 PM CDT Narrative ROHAN DARNELL) - 05/09/2025 7:00 AM CDT From a [...] performance characteristics have been verified by the [facility] Microbiology Laboratory. For questions about this culture, contact the Microbiology Laboratory at [phone]. Interpretive data was last revised on 24. us Gibson Nolen MD LAB MICROBIOLOGY - GENERAL ORDERABLES Final Result Performing Organization Address City/[facility]/ZIP Co de Phone Number ROHAN CUEVAS [place]) 1 [place] [address] * (ABNORMAL) Lactate (05/04/2025 12:29 PM CDT) Lactate 4.1(C) 0.7 - 2.0 mmol/L Comment:Critical result call ed to and read back by Kennedy Youssef (SPORT INTERN) on 05/04/2025 12:54:08 CDT to [id number]. Blood 05/04/2025 12:2 9 PM CDT 05/04/2025 12:49 PM CDT us Luca Sifuentes MD LAB BLOOD ORDERABLES Final Resu lt Performing Organization Address City/[facility]/ZIP Co de Phone Number ROHAN CUEVAS ([place]) [address] [place] [id number] * Blood culture Blood (05/04/2025 12:29 PM CDT) Report Final Report: No growth Comment:Testing performed by : [facility], 1 [place] [address] Blood 05/04/2025 12:2 9 PM CDT 05/04/2025 5:01 PM CDT Narrative ROHAN FAITH ([place]) - 05/09/2025 7:00 AM CDT Collection->Peripheral 1. [...] performance characteristics have been verified by the [facility] Microbiology Laboratory. For questions about this culture, contact the Microbiology Laboratory at [phone]. Interpretive data was last revised on 24. Gibson Nolen MD LAB MICROBIOLOGY - GENERAL ORDERABLES Final Result Performing Organization Address [facility] Co de Phone Number [facility] [place]) 1 [facility] [employer] [place] [place] [address] * POCT glucose (05/04/2025 11:14 AM CDT) Glucose, POC 199 70 - 199 mg/dL Blood 05/04/2025 11:1 4 AM CDT 05/04/2025 11:14 AM CDT Result [facility] Luca Sifuentes MD LAB POCT ORDERABLES - DEVICE Fi nal Result Performing Organization Address City/[facility] Co de Phone Number [facility] [place]) 1 [facility] [employer] [place] [address] * POCT glucose (05/04/2025 8:00 AM CDT) Glucose, POC 166 70 - 199 mg/dL Blood 05/04/2025 8:00 AM CDT 05/04/2025 8:00 AM CDT Luca Sifuentes MD LAB POCT ORDERABLES - DEVICE Fi nal Result Performing Organization Address City/[facility]/ZIP Co de Phone Number ROHAN CUEVAS [place]) 1 [facility] [place] [address] * POCT glucose (05/04/2025 5:21 AM CDT) Glucose, POC 195 70 - 199 mg/dL Blood 05/04/2025 5:21 AM CDT 05/04/2025 5:21 AM CDT us Luca Sifuentes MD LAB POCT ORDERABLES - DEVICE Fi nal Result Performing Organization Address [facility] Co de Phone Number ROHAN CUEVAS ([place]) 1 [facility] [place] [place] [address] * eGFR (05/04/2025 3:04 AM CDT) eGFR [...] ORDERABLES Final Resu lt Performing Organization Address City/[facility]/ZIP Co de Phone Number [facility] ([place]) 1 [facility] [place] [address] * (ABNORMAL) Differential, auto (05/04/2025 3:04 AM CDT) Neutrophil abs 10.58(H) 1.50 - 6.50 K/cumm Imm gran abs 0.12(H) 0.00 - 0.10 K/cumm [facility] ([place]) Lymphocyte abs 0.38(L) 0.80 - 3.30 K/cumm [facility] ([place]) Monocyte abs 0.53 0.20 - 0.80 K/cumm [facility] ([place]) Eosinophil abs 0.00 0.00 - 0.50 K/cumm [facility] ([place]) Basophil abs 0.01 0.00 - 0.10 K/cumm [facility] ([place]) Neutrophil pct 91.0 % [facility] ([place]) Comment: Interpretive Data Percent cell count reference ranges are not reported, since discordance with absolute values may lead to misinterpretation of CBC data. Current Interpretive Data was last revised on 2018. Imm gran pct 1.0 % [facility] ([place]) Comment: Interpretive Data Percent cell count reference ranges are not reported, since discordance with absolute values may lead to misinterpretation of CBC data. Current Interpretive Data was last revised on 2018. Lymphocyte pct 3.3 % [facility] ([place]) Comment: Interpretive Data Percent cell count reference ranges are not reported, since discordance with absolute values may lead to misinterpretation of CBC data. Current Interpretive Data was last revised on 2018. Monocyte pct 4.6 % [facility] ([place]) Comment: Interpretive Data Percent cell count reference ranges are not reported, since discordance with absolute values may lead to misinterpretation of CBC data. Current Interpretive Data was last revised on 2018. Eosinophil pct 0.0 % [facility] ([place]) Comment: Interpretive Data Percent cell count reference [...] 3:04 AM CDT 05/04/2025 3:55 AM CDT Luca Sifuentes MD LAB BLOOD ORDERABLES Final Resu lt [facility] ([place]) 1 [facility] [place] [address] * (ABNORMAL) CBC with auto differential (05/04/2025 3:04 AM CDT) WBC 11.62(H) 3.80 - 9.90 K/cumm Hgb 10.5(L) 13.0 - 17.5 g/dL [facility] ([place]) Hct 31.2(L) 38.9 - 50.3 % [facility] ([place]) Plt 62(L) 150 - 400 [...] 3:04 AM CDT 05/04/2025 3:55 AM CDT Luca Sifuentes MD LAB BLOOD ORDERABLES Final Resu lt [facility] ([place]) 1 [facility] [place] [address] * (ABNORMAL) Comprehensive metabolic panel (05/04/2025 3:04 [...] ORDERABLES Final Resu lt Performing Organization Address City/[facility]/ZIP Co de Phone Number ROHAN CUEVAS ([place]) 1 [facility] [employer] [place] [address] * POCT glucose (05/04/2025 12:11 AM CDT) Glucose, POC 196 70 - 199 mg/dL Blood 05/04/2025 12:1 1 AM CDT 05/04/2025 12:11 AM CDT us Luca Sifuentes MD LAB POCT ORDERABLES - DEVICE Fi nal Result Performing Organization Address [facility] Co de Phone Number ROHAN CUEVAS ([place]) 1 [facility] [place] [address] * Critical Care (05/03/2025 9:36 PM CDT) [...] plan with the ICU team and other medical/industrial rehabilitation consultant staff, making frequent assessments and decisions [...] spent time documenting in the medical record Result [facility] Gibson Nolen MD IN CLINIC/BEDSIDE ORDERABL ES Final Result * POCT glucose (05/03/2025 8:10 PM CDT) Glucose, POC 173 70 - 199 mg/dL Blood 05/03/2025 8:10 PM CDT 05/03/2025 8:10 PM CDT Result [facility] Luca Sifuentes MD LAB POCT ORDERABLES - DEVICE Fi nal Result Performing Organization Address [facility]/ZIP Co de Phone Number [facility] ([place]) [address] [place] [address] * POCT glucose (05/03/2025 5:54 PM CDT) Glucose, POC 179 70 - 199 mg/dL Blood 05/03/2025 5:54 PM CDT 05/03/2025 5:54 PM CDT Result [facility] Luca Sifuentes MD LAB POCT ORDERABLES - DEVICE Fi nal Result Performing Organization Address City/[facility]/ZIP Co de Phone Number ROHAN [facility] ([place]) [address] [place] [address] [place] [place] [address] * Infection Prevention MRSA Only (Staphylococcus aureus) PCR Nasal (05/03/2025 4:27 PM CDT) [facility] Signature PCR Scrn, Methicillin resistant Staphylococcus aureus (MRSA) Not Detected Not Detected Comment: Interpretive Data Testing performed using Nucleic Acid Amplification with the [employer] Xpert MRSA NxG Assay. This assay detects target DNA from mecA, mecC and the SCCmec insertion site of Staphylococcus aureus using Real-Time PCR and has been cleared by the FDA. Performance characteristics have been verified by the [facility]. Current Interpretive Data was last revised on 2023 Nasal 05/03/2025 4:27 PM CDT 05/03/2025 4:30 PM CDT us Luca Sifuentes MD LAB MICROBIOLOGY - [facility] Final Result Performing Organization Address [facility]/ZIP Co de Phone Number ROHAN CUEVAS ([place]) [address] [place] [address] * (ABNORMAL) Troponin T high-sensitivity 6-hour (05/03/2025 3:34 PM CDT) Trop T hs 31(H) <=22 ng/L Comment: Interpretive Data For further hscTnT resources including the diagnostic algorithm and an aid in interpretation, copy and paste this link: https://nrl.testcatalog.org/show/hsTrop Current Interpretive Data last revised 2020. Trop T hs delta 9 ng/L [facility] ([place]) Trop T hs interp Equivocal [facility] ([place]) Blood 05/03/2025 3:34 PM CDT 05/03/2025 3:38 PM CDT us Bob Albert MD LAB BLOOD ORDERABLES Final Result Performing Organization Address [facility] Co de Phone Number ROHAN CUEVAS ([place]) 1 [facility] [place] [address] * (ABNORMAL) Sepsis Lactate w/ Reflex (05/03/2025 3:34 PM CDT) Sepsis Lactate 4.2(C) 0.7 - 2.0 mmol/L Comment:Critical called to Catherine De Leon RN ICU with read back at 05/03/2025 15:43:44 CDT by Ariadne Jensen Blood 05/03/2025 3:34 PM CDT 05/03/2025 3:38 PM CDT us Bob Albert MD LAB BLOOD ORDERABLES Final Result ROHAN CUEVAS ([place]) 1 [facility] [place] [address] * POCT glucose (05/03/2025 2:11 PM CDT) Glucose, POC 104 70 - 199 mg/dL Blood 05/03/2025 2:11 PM CDT 05/03/2025 2:11 PM CDT Luca Sifuentes MD LAB POCT ORDERABLES - DEVICE Fi nal Result Performing Organization Address [facility] Co de Phone Number ROHAN CUEVAS ([place]) 1 [facility] [place] [address] * (ABNORMAL) Troponin T high-sensitivity 4-hour (05/03/2025 1:12 PM CDT) Trop T hs 36(H) <=22 ng/L Comment: Interpretive Data For further hscTnT resources including the diagnostic algorithm and an aid in interpretation, copy and paste this link: https://nrl.testcatalog.org/show/hsTrop Current Interpretive Data last revised 2020. Trop T hs delta 14(C) ng/L [facility] ([place]) Comment:Critical Result call ed by [email or web address] at 2025-05-03 13:43:16. Result Read Back by Ash De Leon RN ICU Trop T hs interp Significa nt(C) [facility] ([place]) Comment:Critical Result call ed by [email or web address] at 2025-05-03 13:43:16. Result Read Back by Ash De Leon RN ICU Blood 05/03/2025 1:12 PM CDT 05/03/2025 1:13 PM CDT Bob Albert MD LAB BLOOD ORDERABLES Final Result Performing Organization Address City/[facility]/ZIP Co de Phone Number ROHAN CUEVAS ([place]) 1 [facility] [place] [address] * Thyroid Function [place] (05/03/2025 1:12 PM CDT) TSH 2.82 0.30 - 4.20 mcIUnit/mL Blood 05/03/2025 1:12 PM CDT 05/03/2025 2:21 PM CDT Luca Sifuentes MD LAB BLOOD ORDERABLES Final Resu lt Performing Organization Address [facility]/ZIP Co de Phone Number ROHAN [facility] ([place]) 1 [place] [address] * (ABNORMAL) Cortisol (05/03/2025 1:12 PM CDT) Cortisol 74.6(H) 4.8 - 19.5 mcg/dl Comment: Interpretive Data Normal Range: 4.8 - 19.5 mcg/dL; Evening: Half of morning value. This analyte undergoes marked diurnal variation. Ranges indicated apply to morning specimens. Current interpretive data was last revised 2018. Testing performed by: , [address] [place] [address]., [address] Blood 05/03/2025 1:12 PM CDT 05/04/2025 9:09 AM CDT Luca Sifuentes MD LAB BLOOD ORDERABLES Final Resu lt Performing Organization Address [facility] Co de Phone Number ROHAN CUEVAS ([place]) 1 [facility] [place] [address] * (ABNORMAL) Sepsis Lactate w/ Reflex (05/03/2025 12:38 PM CDT) Sepsis Lactate 3.2(H) 0.7 - 2.0 mmol/L Blood 05/03/2025 12:3 8 PM CDT 05/03/2025 12:42 PM CDT Bob Albert MD LAB BLOOD ORDERABLES Final Result Performing Organization Address [facility]/ZIP Co de Phone Number ROHAN CUEVAS ([place]) 1 [facility] [place] [address] * (ABNORMAL) Troponin T high-sensitivity 2-hour (05/03/2025 10:58 AM CDT) Trop T hs 33(H) <=22 ng/L Comment: Interpretive Data For further hscTnT resources including the diagnostic algorithm and an aid in interpretation, copy and paste this link: https://nrl.testcatalog.org/show/hsTrop Current Interpretive Data last revised 2020. Trop T hs delta 11(C) ng/L CERN ER FAITH ([place]) Comment:Critical Result call ed by [email or web address] at 2025-05-03 11:28:36. Result Read Back by Nataliya Ibarra RN ER Trop T hs interp Significa nt(C) ROHAN CUEVAS ([place]) Comment:Critical Result call ed by [email or web address] at 2025-05-03 11:28:36. Result Read Back by Nataliya Ibarra RN ER Blood 05/03/2025 10:5 8 AM CDT 05/03/2025 11:01 AM CDT Bob Albert MD LAB BLOOD ORDERABLES Final Result Performing Organization Address [facility] Co de Phone Number ROHAN CUEVAS ([place]) 1 [facility] Department [place] [address] * (ABNORMAL) Urinalysis reflex to microscopic and culture Urine (05/03/2025 10:46 AM CDT) Color, ur Yellow Yellow Clarity, ur Clear Clear ROHAN Haynes ([place]) Specific gravity, ur 1.015 1.003 - 1.030 ROHAN CUEVAS ([place]) pH, urine 6.5 ROHAN CUEVAS ([place]) Comment: Interpretive Data U rine pH is affected by diet, medications, systemic acid-base disturbances, and renal tubular function. pH may affect urinary stone formation. For example, urine pH below 6.0 may help reduce the tendency for calcium phosphate stones and pH greater than 6.0 may reduce the tendency for uric acid stone formation. Source: [facility] Current Interpretive Data was last revised on [...] for microscopic UA and culture not met. ROHAN [facility] ([place]) Urine 05/03/2025 10:4 6 AM CDT 05/03/2025 10:52 AM CDT us Bob Albert MD LAB MICROBIOLOGY - GENERAL ORDERABLES Final Result ROHAN [facility] ([place]) 1 [facility] Department [place] [address] * CT Chest Abdomen Pelvis WO Contrast (05/03/2025 10:24 AM CDT) Anatomical Region Laterality Modality Body N/A Computed Tomogra phy 05/03/2025 10:3 0 AM CDT Narrative 05/03/2025 10:48 AM CDT EXAM DESCRIPTION: CT CHEST ABDOMEN PELVIS WO CONTRAST REASON FOR STUDY: sepsis Patient arrives via [facility] from home for evaluation of worsening [...] Eduardo Ball M.D. MZ: EULALIA Report ID: [id number] Reading Location: [place] [address] Procedure Note Jose Eduardo Ball MD - 05/03/2025 EXAM DESCRIPTION: CT CHEST ABDOMEN PELVIS WO CONTRAST REASON FOR STUDY: sepsis Patient arrives via [facility] ems from home for evaluation of worsening [...] Eduardo Ball M.D. MZ: EULALIA Report ID: [id number] Reading Location: [id number] Bob Albert MD IMG CT PROCEDURES Final Res ult * CT Head WO Contrast (05/03/2025 10:24 AM CDT) Anatomical Region Laterality Modality Head and Neck N/A Computed Tomogra phy 05/03/2025 10:2 9 AM CDT Narrative 05/03/2025 10:32 AM CDT EXAM DESCRIPTION: CT HEAD WO CONTRAST REASON FOR STUDY: Headache, no red flags Patient arrives via [facility]s from home for evaluation of worsening [...] Sebas Rincon M.D. MM: MM Report ID: [id number] Reading Location: [id number] Procedure Note Sebas Rincon MD - 05/03/2025 EXAM DESCRIPTION: CT HEAD WO CONTRAST REASON FOR STUDY: Headache, no red flags Patient arrives via [facility] ems from home for evaluation of worsening [...] Sebas Rincon M.D. MM: MM Report ID: [id number] Reading Location: [id number] Bob Albert MD IMG CT PROCEDURES Final Res ult * ECG 12 lead (05/03/2025 9:25 AM CDT) 05/03/2025 9:25 AM CDT Narrative [facility] - 05/04/2025 8:51 AM CDT Vent Rate: 120 bpm RR Interval: 498 msec NV Interval: 104 msec QRS Duration: 98 msec QT Interval: 308 msec QTC Interval: 379 msec P-R-T [place]: 2 - -11 - -1 degrees IMPRESSION: SINUS TACHYCARDIA WITH SHORT NV INTERVAL POSSIBLE INFERIOR MYOCARDIAL INFARCTION , OF INDETERMINATE AGE [30 ms Q WAVE IN II/aVF] Compared to prior EKG heart rate increased Electronically Signed By: Bernard Martinez MD [facility] Bob Albert MD ECG ORDERABLES Final Resul t [facility] * Blood culture Blood (05/03/2025 9:22 AM CDT) Report Final Report: No growth Comment:Testing performed by : [facility], [address] [facility], [place]., [address] Blood 05/03/2025 9:22 AM CDT 05/03/2025 11:56 AM CDT Narrative ROHAN CUEVAS ([place]) - 05/07/2025 12:00 PM CDT Collection->Peripheral [...] performance characteristics have been verified by the [facility] Microbiology Laboratory. For questions about this culture, contact the Microbiology Laboratory at [phone]. Interpretive data was last revised on 24. Bob Albert MD LAB MICROBIOLOGY - GENERAL ORDERABLES Final Result ROHAN CUEVAS ([place]) 1 [facility] Department of Laboratories [place], [place] [id number] * (ABNORMAL) Blood culture Blood (05/03/2025 9:11 AM CDT) Direct Specimen Exam Stain: Gram Positive Cocci in pairs and chains Time to culture positivity (aerobic media): 8.4 hours Time to culture positivity (anaerobic media): 8.4 hours Notification of: Gram Positive Cocci in pairs and chains called to and read back by: Maria Esther Gross [facility] [id number] on 05/03/2025 21:07:53 by: Gibson Middleton [place] Test result called to and read back by iglesia strickland on 05/04/2025 00:20:41 by maria esther gross Comment:Testing performed by : [facility], [address] [place] [address], [id number] Direct Specimen Exam Molecular Analysis: Streptococcus species detected by [facility] BCID-GP panel. This test does not exclude the possibility of a mixed bacterial infection. Notification of: Streptococcus species called to and read back by: Maria Esther Gross.[facility] [phone] on 05/03/2025 23:00:48 by: Veronica Nieves.Catherine CUEVAS ([place]) Comment:Testing performed by : [facility], [address] [place] [address], [id number] Report Final Report: Streptococcus dysgalactiae (.) ROHAN CUEVAS ([place]) Comment:Testing performed by : [facility], [address] [place] [address]., [id number] Organism STREPTOCOCCUS DYSGALACTIAE ROHAN CUEVAS ([place]) Blood [...] performance characteristics have been verified by the [facility] Microbiology Laboratory. For questions about this culture, contact the Microbiology Laboratory at [phone]. Interpretive data was last revised on 24. Organism Antibiotic Method Susceptibility Streptococcus dysgalactiae Penicillin (JENNIFER) (JENNIFER) INTE RPRETATION Susceptible Streptococcus dysgalactiae Ceftriaxone (JENNIFER) (JENNIFER) INT ERPRETATION Susceptible Streptococcus dysgalactiae Clindamycin (JENNIFER) INTERPRE TATION Susceptible Streptococcus dysgalactiae Erythromycin (JENNIFER) INTERPRE TATION Susceptible Streptococcus dysgalactiae Linezolid (JENNIFER) INTERPRE TATION Susceptible Streptococcus dysgalactiae Vancomycin (JENNIFER) INTERPRE TATION Susceptible Bob Albert MD LAB MICROBIOLOGY - GENERAL ORDERABLES Final Result Performing Organization Address City/[facility]/ZIP Co de Phone Number ROHAN CUEVAS ([place]) [address] [place] [address] [employer] [place] [address] * Troponin T high-sensitivity series (baseline, 2hr, 4hr, 6hr) (05/03/2025 9:10 AM CDT) [facility] Trop T hs 22 <=22 ng/L Comment: Interpretive Data For further hscTnT resources including the diagnostic algorithm and an aid in interpretation, copy and paste this link: https://nrl.testcatalog.org/show/hsTrop Current Interpretive Data last revised 2020. Blood 05/03/2025 9:10 AM CDT 05/03/2025 9:16 AM CDT Bob Albert MD LAB BLOOD ORDERABLES Final Result Performing Organization Address City/[facility]/ZIP Co de Phone Number ROHAN CUEVAS ([place]) 1 [facility] [employer] [place] [address] * (ABNORMAL) Sepsis Lactate w/ Reflex (05/03/2025 9:10 AM CDT) [facility] Sepsis Lactate 4.0(C) 0.7 - 2.0 mmol/L Comment:Critical Nataliya Pawan Ibarra called to ER with read back at 05/03/2025 09:24:58 CDT by Ariadne Jensen Blood 05/03/2025 9:10 AM CDT 05/03/2025 9:16 AM CDT Bob Albert MD LAB BLOOD ORDERABLES Final Result ROHAN [facility] ([place]) [address] [place] [address] [employer] [place] [address] * eGFR (05/03/2025 9:10 AM CDT) eGFR 90 >=60 mL/min/1. 73 [...] ORDERABLES Final Result ROHAN [facility] ([place]) 1 [facility] Department [place] [address] * (ABNORMAL) Differential, auto (05/03/2025 9:10 AM [...] Albert MD LAB BLOOD ORDERABLES Final Result CORRINANER [facility] ([place]) 1 [facility] Department [place] [address] * (ABNORMAL) CBC with auto differential (05/03/2025 9:10 AM CDT) Pathologist [facility] WBC 7.15 3.80 - 9.90 K/cumm Hgb 11.7(L) 13.0 - 17.5 g/dL [facility] ([place]) Hct 34.5(L) 38.9 - 50.3 % [facility] ([place]) Plt 74(L) 150 - 400 K/cumm [facility] ([place]) MPV 9.8 9.1 - 12.3 fL [facility] ([place]) RBC 3.77(L) 4.30 - 5.80 M/cumm [facility] ([place]) MCV 91.5 81.3 - 96.4 fL [facility] ([place]) MCH 31.0 27.1 - 33.3 pg [facility] ([place]) MCHC 33.9 32.3 - 35.7 g/dL [facility] ([place]) RDW CV 17.2(H) 11.1 - 14.9 % [facility] ([place]) RDW SD 57.8(H) 35.7 - 48.1 fL [facility] ([place]) NRBC abs 0.00 0.00 - 0.01 K/cumm [facility] ([place]) Blood 05/03/2025 9:10 AM CDT 05/03/2025 9:16 AM CDT Bob Albert MD LAB BLOOD ORDERABLES Final Result Performing Organization Address City/[facility]/ZIP Co de Phone Number ROHAN [facility] ([place]) 1 [facility] [place] [address] * (ABNORMAL) CRP (acute phase) (05/03/2025 9:10 AM CDT) Pathologist [facility] CRP 19.8(H) <=10.0 mg/L Blood 05/03/2025 9:10 AM CDT 05/03/2025 9:32 AM CDT Bob Albert MD LAB BLOOD ORDERABLES Final Result ROHAN CUEVAS ([place]) 1 [facility] [place] [address] * Magnesium (05/03/2025 9:10 AM CDT) [facility] Magnesium 1.5 1.4 - 2.5 mg/dL Blood 05/03/2025 9:10 AM CDT 05/03/2025 9:32 AM CDT Bob Albert MD LAB BLOOD ORDERABLES Final Result Performing Organization Address City/[facility]/RUST de Phone Number ROHAN CUEVAS ([place]) 1 [facility] [place] [address] * (ABNORMAL) Comprehensive metabolic panel (05/03/2025 9:10 AM CDT) [facility] Sodium 138 135 - 145 mmol/L Potassium, pl 3.6 3.3 - 4.9 mmol/L [facility] ([place]) Chloride 100 97 - 110 mmol/L [facility] ([place]) CO2 25 22 - 32 mmol/L [facility] ([place]) Anion gap 13 2 - 15 mmol/L [facility] ([place]) BUN 14 6 - 25 mg/dL [facility] ([place]) Creatinine 0.77(L) 0.80 - 1.30 mg/dL [facility] ([place]) Comment:Icteric sample, test results may be affected. Glucose 139 70 - 199 mg/dL [facility] ([place]) Comment: Interpretive Data Fasting glucose >/= [...] ORDERABLES Final Result ROHAN [facility] ([place]) 1 [facility] Department [place] [address] * DEVICE CHECK - REMOTE (02/23/2025 2:24 PM CDT) Anatomical Region Laterality Modality Other Narrative 03/05/2025 1:00 PM CDT Images from the original result were not included. 02/25/2025 [employer] quarterly remote device check NOTE The following shows snippets from the complete quarterly report. The complete report in its entirety is attached to this Result Text in Referral Management Liaison Periodic iEGM from Last in-office check 10/23/2024 [...] record. Recommendations: Continue current device follow-up. Ivy Johnson MD \ us Ivy Johnson MD [facility] [place] OCEDURES Final Result * Diabetic Eye Exam (10/13/2024 2:06 PM BEAN WEIGHER) Historical Provider HEALTH MAINTENANCE Edited Result - [...] data last revised 22. Testing performed by: , [address] [place] [address]., [address] Blood 09/09/2024 10:0 7 AM CDT 09/09/2024 5:39 PM CDT Mahesh Llamas MD LAB BLOOD ORDERABLES Sally l Result ROHAN CUEVAS [place]) 3 [facility] Department [place] [address] * (ABNORMAL) Hemoglobin A1c (09/09/2024 10:07 AM CDT) Hgb A1C 6.5(H) 4.0 - 5.6 % Comment:Testing performed by : [facility], [address] [place] [address]., [address] Estimated Average Glucose 140 mg/dL ROHAN CUEVAS ([place]) Comment: The ADA recommends reporting an estimated Average Glucose (eAG) with all Hemoglobin A1c results using the equation derived from a study of 507 normal and diabetic adults. Minority populations were underrepresented and children were not included. (Diabetes Care 31:0410-5898, 2008). The eAG is not equivalent to a fasting glucose. Testing performed by: [address] [address] Blood 09/09/2024 10:0 7 AM CDT 09/09/2024 5:39 PM CDT us Mahesh Llamas MD LAB BLOOD ORDERABLES Sally chaparro Result ROHAN CUEVAS ([place]) 1 [facility] Department [place] [address] * Lipid panel (09/09/2024 10:07 AM CDT) [facility] Signature Cholesterol 96 30 - 199 mg/dL Comment: [...] last revised on 2018. Testing performed by: , [address] [place] [address], [place]., [address] Triglycerides 63 <=149 mg/dL ROHAN CUEVAS ([place]) [...] last revised on 2018. Testing performed by: , [address] [place] [address]., [address] HDL 43 >=40 mg/dL ROHAN Arriaza ([place]) [...] last revised on 2018. Testing performed by: , [address] [place] [address]., [address] LDL, calculated 39 <=129 mg/dL ROHAN CUEVAS [...] NCEP Expert Panel. Circulation 2004;110:227 3. Jimbo Fang al. SALLY Cardiol. 2020 March 12;5(5):540-548. doi: 10.1001/jamacardio.2020.0013 Current Interpretive Data was last revised on 2024. Testing performed by: , [address] [place] [address]., [address] Non-HDL Cholesterol 53 mg/dL ROHAN CUEVAS ([place]) [...] last revised on 2018. Testing performed by: [address] [address] Chol/HDL ratio 2 CORRINANE Pawan CUEVAS ([place]) Comment:Testing performed by : [address] [address] Blood 09/09/2024 10:0 7 AM CDT 09/09/2024 5:39 PM CDT us Mahesh Llamas MD LAB BLOOD ORDERABLES Sally chaparro Result ROHAN CUEVAS ([place]) 1 [facility] Department [place] [address] * Albumin Creatinine Ratio, Urine (01/10/2024 8:58 AM BEAN WEIGHER) Albumin Ur <12.0 mg/L ROHAN [facility] ([place]) Comment: Interpretive Data No reference range established. Current interpretive data was last revised 2019. Testing performed by: , [address] [place] [address]., [address] Creatinine Ur 124.5 mg/dL ROHAN CUEVAS ([place]) Comment: Interpretive Data No reference range established. Current interpretive data was last revised 2019. Testing performed by: [address] [address] Albumin Creatinine Ratio, Ur <10 1 - 29 mg/g ROHAN CUEVAS ([place]) Comment:Testing performed by : [address] [address] Urine 01/10/2024 8:58 AM BEAN WEIGHER 01/10/2024 11:37 AM BEAN WEIGHER Narrative ROHAN CUEVAS ([place]) - 01/10/2024 1:44 PM BEAN WEIGHER fasting us Hakan Mccormick MD LAB URINE ORDERABLES Final R esult ROHAN CUEVAS ([place]) 1 [facility] Department [place] [address] * DIABETES FOOT EXAM (01/25/2017) Diabetic Foot Exam Unknown Historical Provider HEALTH MAINTENANCE Final Result * COLONOSCOPY IMAGES (01/15/2015) Anatomical Region Laterality Modality Other Narrative 01/15/2015 Ordered by an unspecified provider. Historical Provider GI PROCEDURE ORDERABLES F inal Result from Last 3 Months or Most Recently Relevant to Health Maintenance Insurance MEDICARE [facility] MEDICARE [facility] MEDICARE [facility] Advance Directives For more information, please contact: [phone] Documents on File Type Date Recorded Patient Deicer Element Winder Machine Expl anation ADVANCE DIRECTIVE 05/11/2025 11:04 AM Geetha petersen Will ADVANCE DIRECTIVE 05/11/2025 11:04 AM [facility] Department Manager-Medical * LIMITED - No CPR (Latest Code [...] 3:46 PM 03/06/2024 5:39 PM Care Teams Pet Counselor Relationship Specialty Start Date End Date Mahesh [place] [address] [place] [address] PCP - General Family Medicine 06/12/24 Maria Esther Montemayor, OT Occupational Therapist Occupational Therapy 09/21/22
--- OUTSIDE RECORDS SUMMARY | 2025-05-25 12:25 | XMS_ITS | Encounter Summary ---
Author Organization [facility] Address [address] [place] [address] Phone Care Team Providers Care Materials Planner Name Role Phone Hakan Mccormick MD Primary Care Provider [phone] Jeannie Noyola RN Unavailable [phone] Sunita Irizarry RN Unavailable [phone] Kellee Cedillo RN Unavailable [phone] Maria Esther Montemayor OT Unavailable Unavailable Mahesh Llamas MD Primary Care Provider [phone] Encounter Details Date Type Department Care Team (Late st Contact Info) Description 01/22/2018 Orders Only [facility] ProviderMikayla MD [facility] [place] [address] Social History Tobacco Use Types Packs/Day Years Used Date Smoking Tobacco: Never Smokeless Tobacco: Never Alcohol Use Standard Drinks/Week Comments No 0 (1 standard drink = 0.6 oz pur e alcohol) Sex and Gender Information Value Date Recorded Sex Assigned at Not on file 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 us Historical Provider LAB BLOOD ORDERABLES Sally l Result documented in this encounter Visit Diagnoses Not on filedocumented in this encounter Additional Health Concerns Infection Onset Date Last Indicated Resolved Time COVID: Suspected 10/11/2023 10/11/2023 10/11/2023 8:12 AM OYSTER PREPARER COVID: Suspected 12/31/2024 12/31/2024 01/01/2025 12:13 AM OYSTER PREPARER documented as of this encounter Care Teams Materials Planner Relationship Specialty Start Date End Date Hakan Mccormick MD PCP - General 02/09/17 06/11/24 Mahesh Llamas MD [address] [place] [address] PCP - General Family Medicine 06/12/24 Jeannie Noyola RN [address] [facility] [address] [place] [address] Fur Ironer 07/07/19 07/20/19 Sunita Irizarry RN [address] [facility] [address] [place] [address] Fur Ironer 07/09/19 09/04/19 Kellee Cedillo RN [address] [id number] Fur Ironer 12/05/21 12/29/21 Maria Esther Montemayor, OT Occupational Therapist Occupational Therapy 09/21/22 documented as of this encounter
--- OUTSIDE RECORDS SUMMARY | 2025-05-25 12:25 | XMS_ITS | Continuity of Care Document ---
Author Organization [facility] Address [address] [facility] damien Verdin [address] [place] [phone] Phone Care Team Providers Care Pathology Transcriptionist Name Role Phone Sandro Jones MD Unavailable [...] Diagnoses Date Provider Providers Copied on Encounter [facility], [address] [place] [address] [address], [place], [place], [address], [place] tel:[phone] SEC [place] Professional Post-Op (chief complaint) Surgery follow-up examination 7 Robert Jo. [address], [place], [place], [address], [place]. tel:[phone] [facility], [address] [place] [address] [address], [place], [place], [address], [place] tel:[phone] SEC [place] Professional Laser procedure (chief complaint) Other secondary cataract, right eye 7 Robert Jo. [address], [place], [place], [address], [place]. tel:[phone] Office/outpa tient Visit, Est [facility], [address] [place] [address] [address], [place], [place], [address], [place] tel:[phone] SEC [place] Professional evaluation (chief complaint) No Information 7 Robert oJ. [address], [place], [place], [address], [place]. tel:[phone] [facility], [address] [place] [address] [address], [place], [place], [address], [place] tel:[phone] SEC [place] Professional No Information 7 Yudith Edwards. [address], [place], [place], [address], [place]. tel:[phone] Office/outpa tient Visit, Est [facility] Eye [facility], [address] [place] [address] [address], [place], [place], [address], [place] [phone] SEC [place] Professional Difficulty reading (chief complaint) No Information Julia Goldsmith. [address] [facility], [address], [place], [address], [place]. tel:[phone] Referring Provider: Lien Spann, [address], [address]. tel:[phone] [facility], [address] [place] [address] [address], [place], [place], [address], [place] tel:[phone] SEC [place] Professional F/u exam, postop (chief complaint) No Information Wankayan Edwards. [address] [facility], [facility] [place], [address], [place]. tel:[phone] Referring Provider: Lien Spann, [address], [address]. tel:[phone] [place] [address], [address] [place] [address] [address], [place], [place], [address], [place] [phone] SEC [place] Professional F/u exam, postop (chief complaint) No Information 4 Yudith Edwards. [address] [facility], [place], [place], [address], [place]. tel:[phone] Referring Provider: Lien Spann, [address], [address]. tel:[phone] [facility] Eye [facility], [address] [place] [address] [address], [place], [place], [address], [place] tel:[phone] [facility] No Information 4 Julia Goldsmith. [address], [place], [address], [place]. tel:[phone] Referring Provider: Lien Spann, [address], [facility]. [phone] [facility] Eye [facility], [address] [place] [address] [address], [place], [place], [address], tel:[phone] SEC [facility] No Information 4 Julia Goldsmith. [address], [place], [address], [place]. tel:[phone] Referring Provider: Lien Spann, [address], [facility]. tel:[phone] [facility], [address] [place] [address] [address], [place], [place], [address], [place] tel:[phone] SEC [facility] Professional F/u exam, postop (chief complaint) No Information 4 Yudith Edwards. [address] [place], [place], [address], [place]. tel:[phone] Referring Provider: Lien Spann, [address], [facility]. tel:[phone] [facility], [address] [place] [address] [address], [place], [place], [address], [place] tel:[phone] SEC [facility] Professional No Information 4 Yudith Edwrads. [address] [facility] [place], [address], [place]. tel:[phone] Referring Provider: Jerry Haynes, [address] [facility] [place], [address]. tel:[phone] [facility], [address] [place], [place] [address]st [address], [place], [place], [address], [phone] [facility] [place] No Information 4 Julia Goldsmith. [address], [place], [facility], . tel:[phone] Referring Provider: Lien Spann, [facility] [address], [facility]. tel:[phone] [facility], [address] [place] [address] [address], [place], [place], [address], [phone] SEC Tereso Aguiar No Information 4 Julia Goldsmith. [address] [facility], [address] [place] [address], [facility], . tel:[phone] Referring Provider: Lien Spann, [address], [facility]. tel:[phone] Office/outpa tient Visit, [facility], [address], [place], [place], [address], [phone] SEC Samir WATKINS Professional No Information 4 Julia Goldsmith. [address], [address] [place] [address], [facility], . tel:[phone] Referring Provider: Lien Spann, [address], [facility]. tel:[phone] Family History Family Member Type Diagnosis Age [...] Information Instructions Date Instruction Additional Infor stanley Follow up - Return jhonathan Morales OD for regularly scheduled visits Impression/Plan - 1 month s/p Yag Laser [...] to patient today.- Recommend patient return to [facility], [place] for regularly scheduled visits. Follow up - 1 month Yag Cap PO O D Impression/Plan - 1 month s/p Yag Cap [...] PO OD and then will return to [facility], [place]. Follow up - 1 month Yag [...] Related to Other secondary cataract, left eye - Return in 1 year Related to Se e list of assessments above - IOLs stable. Macul ar degeneration, dry [...] Related to See list of assessments above Pseudophakia - Educa tional material given Related to Pseudophakia - RTC in 6 months Related to See list of assessments above - 2 week [...] Se e list of assessments above - One day s/p phaco with IOL OS. IOL in good position. Medication instillation and post op instructions reviewed. RTC as scheduled or sooner if problems. Related to See list of assessments above - RTC as needed Related to See l ist of assessments above - 2 week post op to s/p phaco with IOL OD. Healing well. Medication instillation and post op instructions reviewed. Ok to proceed with CE OS. Educational materials provided:about today's exam. Related to See list of assessments above - RTC as scheduled Related to Se e impression: general plan General plan -FOLLOW -UP SURGERY NOS - [...] Butcher. Related to See impression: general plan Assessments Type Assessment Date assessment Surgery follow-up examination Ap - Patient Care Teams Name Effective Dates (start - stop) Status Members No Information
--- OUTSIDE RECORDS SUMMARY | 2025-05-25 12:25 | XMS_ITS | Encounter Summary ---
Author Organization [facility] Healthcare Address [address] [place] [address] Care Team Providers Care Poker Manager Name Role Phone Maria Esther Montemayor OT Unavailable Unavailable Mahesh Llamas MD Primary Care Provider [phone] Encounter Details Date Type Department Care Team (Late st Contact Info) Description 05/03/2025 8:17 AM CDT Hospital Encounter [facility] Social History Tobacco Use Types Packs/Day Years Used Date Smoking Tobacco: Never Smokeless Tobacco: Never Alcohol Use Standard Drinks/Week Comments No 0 (1 standard drink = 0.6 oz pur e alcohol) [facility] Utilities Answer Date Recorded In the past [...] week 05/04/2025 How often do you attend caodaism or scientology serv ices? Never 05/04/2025 Do you belong to any clubs o r organizations such as caodaism groups, unions, fraternal or athletic groups, or [...] place to sleep or slept in a detention (including now)? No 03/04/2024 Housing Stability Vital Sign Answer Damien e Recorded In the last 12 months, was t here a time when you were not able to pay the mortgage or rent on time? No 05/04/2025 In the past 12 months, how m any times have you moved where you were living? 0 05/04/2025 At any time in the past 12 m [facility], were you homeless or living in a detention (including now)? 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
--- NOTE | 2025-05-25 12:32 | ECG_ITS ---
Test Date: 2025-05-25 13:07:51 Measurements Intervals [place] Rate: 82 P: 97 [place]: 225 QRS: -12 QRSD: 114 T: 3 QT: 428 QTc: 503 Interpretive Statements ELECTRONIC ATRIAL PACEMAKER LOW QRS VOLTAGE IN PRECORDIAL LEADS [QRS DEFLECTION < 1.0 mV IN CHEST LEADS] ANTEROLATERAL MYOCARDIAL INFARCTION , PROBABLY OLD [40+ ms Q WAVE IN I/aVL/V3-V6] ABNORMAL ECG No previous ECG available for comparison Electronically Signed On 05-26-2025 10:22:18 CDT by Umberto Moses M.D.
[2025-05-25 12:52] LABS: Add Urine Microscopic? YES; Appearance Urine Clear (Clear); Glucose Urine UA Negative (Negative); Leukocyte Esterase Ur Negative LEU/UL (Negative); Nitrate Urine Negative (Negative); Specific Grav Ur 1.010 (1.010-1.020)
--- NOTE | 2025-05-25 13:12 | PCRCNOTE ---
Unable to perform EKG stat as ordered due to radiology taking patient for testing before our service was allowed to perform EKG.
[2025-05-25 13:13] LABS: Hematocrit 35.2 % (37.0-46.0); Hemoglobin 11.6 g/dL (12.4-15.3); Immature Platelet Fraction Pct 3.2 % (1.0-7.0); Mean Corpuscular HGB Conc 33.0 g/dL (32-36); Mean Corpuscular Hemoglobin 30.1 pg (27.0-31.0); Mean Corpuscular Volume 91.4 fL (78.0-102.0); Platelet Count Result 81 K/mm3 (150-420); Red Blood Count 3.85 M/mm3 (4.70-6.10); White Blood Count 3.8 K/mm3 (4.8-10.8)
[2025-05-25 13:20] LABS: Alanine Aminotransferase 26 U/L (6-50); Albumin Level 3.1 g/dL (3.5-5.1); Alkaline Phosphatase 104 U/L (38-126); Anion Gap 5 mmol/L (4-12); Aspartate Amino Transferase 40 U/L (17-59); Band Neutrophils Percent 1 % (0-6); Bilirubin,Total 1.3 mg/dL (0.2-1.3); Blood Urea Nitrogen 20 mg/dL (9-20); Calcium 8.2 mg/dL (8.4-10.2); Carbon Dioxide 38 mmol/L (22-30); Chloride 93 mmol/L (98-107); Estimated CRCL calculation 73 ml/min; Estimated Glomerular Filt Rate > 60; Glucose 122 mg/dL (65-110); Lymphocytes Absolute Manual 1.21 K/mm3 (1.1-4.5); Lymphocytes Percent Manual 32 % (18-44); Neutrophils Absolute Manual 1.93 K/mm3 (1.3-6.7); Neutrophils Percent Manual 50 % (46-73); Osmolality Calculated 285 mOsm/kg (285-295); Potassium 2.9 mmol/L (3.4-5.0); Sodium 136 mmol/L (137-145); Total Cells Counted 100; Total Protein 7.0 g/dL (6.3-8.2)
[2025-05-25 13:21] LABS: Eosinophils Absolute Manual 0.11 K/mm3 (0.02-0.50); Eosinophils Percent Manual 3 % (1-6); Monocytes Absolute Manual 0.53 K/mm3 (0.1-0.90); Monocytes Percent Manual 14 % (3-9)
[2025-05-25 13:25] LABS: INR 1.1; Partial Thromboplastin Time 31.3 Sec (23.9-30.70); Prothrombin Time 12.0 Seconds (9.50-12.1)
[2025-05-25 13:32] LABS: NT Pro B Type Natriuretic Pept 318 pg/mL (19.9-100); Troponin I 0.018 ng/mL (0.000-0.034)
[2025-05-25] MEDS: POTASSIUM CHLORIDE 20 MEQ PACKET (FOR LIQUID) 40 MEQ PO (13:58)
--- NOTE | 2025-05-25 18:42 | PC.NURSE ---
1344- [facility] Transfer line contacted. Spoke with Justina. Pt placed on waitlist. 1509- [facility] recheck. No beds available. Feeler put out to [facility] and [facility]. 1548- [place] contacted. Spoke with Iam. Pt placed on waitlist. 1556- [facility] contacted. No beds available. Placed on waitlist. 1600- [facility] contacted. Waiting on callback 1608- [facility] contacted. Waiting on callback. 1623- MD Elsie gives doctor report. Waiting on callback for bed. 1732- Placed on [facility] waitlist. 1735- Bed accepted at [facility]. Rm 3323. Accepting physician MD Selma. Family at bedside for notification. 175- Handoff report given to [facility]. 180- [facility] contacted to initiate transfer. 1809- [facility], [facility], and [facility] cancelled. 1811- [facility] cancelled. 1812- [facility] cancelled. 1813- [facility] cancelled.
== END 2025-05-25 19:18 | disposition short-term general hospital (02) ==
PROVIDERS: Emergency Provider Emergency Medicine
DX: G45.9 Transient cerebral ischemic attack, unspecified (principal); E87.6 Hypokalemia; E11.9 Type 2 diabetes mellitus without complications; E78.5 Hyperlipidemia, unspecified; I11.0 Hypertensive heart disease with heart failure; I50.9 Heart failure, unspecified; I25.2 Old myocardial infarction; Z79.82 Long term (current) use of aspirin; Z79.899 Other long term (current) drug therapy; Z79.84 Long term (current) use of oral hypoglycemic drugs
CPT/HCPCS: 36415; 70450; 71045; 80053; 81001; 83880; 84484; 85025; 85055; 85610; 85730; 93005; 99285; A9270

== ENCOUNTER 2025-07-01 09:53 | Outpatient (NON) | payer MEDICARE, BC, SELFPAY ==
--- OUTSIDE RECORDS SUMMARY | 2017-02-27 06:30 | XMS_ITS | Continuity of Care Document ---
Author Organization [facility] [place] [address] [facility] damien Verdin [address] [place] [phone] Phone Care Team Providers Care Cell Tuber Hand Name Role Phone Sandro Jones MD Unavailable Unavailable Allergies, Adverse Reactions, Alerts Substance Reaction Status Criticality DYE Active No Information Medications Medication Instructions Dosage Effective Dates (start - stop) Status Comments oxybutynin chloride 5 mg tablet take 1 tablet by oral route 2 times every day 5 MG - Active metformin 500 mg tablet take 1 tablet by oral route 2 times every day with morning and evening meals 500 MG - Active aspirin 81 mg tablet,delayed release - Active lisinopril 10 mg tablet - Active Lipitor 20 mg tablet - Active carvedilol 6.25 mg tablet - Active isosorbide mononitrate ER 60 mg tablet,extended release 24 hr - Active Procedures Procedure Date No Charge Refraction Post-op Follow-up Visit No Charge Refraction After Cataract Laser Surgery No Charge Refraction After Cataract Laser Surgery No Charge Refraction Office/outpatient Visit, Est Office/outpatient Visit, Est Post-op Follow-up Visit No Charge Refraction Remove Cataract, Post Op Care 4 Remove Cataract, Insert Lens,Comanaged J IOLMaster-Professional Post-op Follow-up Visit Remove Cataract, Post Op Care 4 Remove Cataract, Insert Lens,Comanaged J IOLMaster-Professional No Charge Refraction Office/outpatient Visit, New IOLMaster-Technical Advance Directives Directive Yes / No Effective Date File Name No Information Encounters Encounter Description Practice Location Reason(s) For Visit Diagnoses Date Provider Providers Copied on Encounter [facility], [address] [place] [address] [address], [place], [place], [id number], [place] tel:[phone] SEC [place] Professional Post-Op (chief complaint) Surgery follow-up examination 7 Robert Jo. [address], [place], [place], [address], [place]. tel:[phone] [facility], [address] [place] [address] [address], [place], [place], [address], [place] tel:[phone] [place] Laser procedure (chief complaint) Other secondary cataract, right eye 7 Robert Jo. [address], [place], [place], [address], [place]. tel:[phone] Office/outpa tient Visit, Est [facility], [address] [place] [address] [address], [place], [place], [address], [place] tel:[phone] [place] evaluation (chief complaint) No Information 7 Robert Jo. [address], [place], [place], [address], [place]. tel:[phone] [facility], [address] [place] [address] [address], [place], [place], [address], [place] tel:[phone] [place] No Information 7 Yudith Edwards. [address], [place], [place], [address], [place]. tel:[phone] Office/outpa tient Visit, Est [facility], [address] [place] [address] [address], [place], [place], [address], [place] [phone] [place] Difficulty reading (chief complaint) No Information Julia Goldsmith. [address] [facility], [address], [place], [address], [place]. tel:[phone] Referring Provider: Lien Spann, [address], [address]. tel:[phone] [facility], [address] [place] [address] [address], [place], [place], [address], [place] tel:[phone] [place] F/u exam, postop (chief complaint) No Information Wankayan Edwards. [address] [facility], [facility] [place], [address], [place]. tel:[phone] Referring Provider: Lien Spann, [address], [address]. tel:[phone] [place] [address], [id number] [place] [address] [address], [place], [place], [address], [place] [phone] [place] F/u exam, postop (chief complaint) No Information 4 Yudith Edwards. [address] [facility], [place], [place], [address], [place]. tel:[phone] Referring Provider: Lien Spann, [address], [address]. tel:[phone] [facility], [address] [place] [address] [address], [place], [place], [address], [place] tel:[phone] [facility] No Information 4 Julia Goldsmith. [address], [address], [place]. tel:[phone] Referring Provider: Lien Spann, [address], [facility]. [phone] [facility], [address] [place] [address] [address], [place], [place], [address], tel:[phone] SEC [facility] No Information 4 Julia Goldsmith. [address], [address], [place]. tel:[phone] Referring Provider: Lien Spann, [address], [facility]. tel:[phone] [facility], [address] [place] [address] [address], [place], [place], [address], [place] tel:[phone] SEC [facility] Professional F/u exam, postop (chief complaint) No Information 4 Yudith Edwards. [address] [place], [place], [address], [place]. tel:[phone] Referring Provider: Lien Spann, [address], [facility]. tel:[phone] [facility], [address] [place] [address] [address], [place], [place], [address], [place] tel:[phone] SEC [facility] Professional No Information 4 Yudith Edwards. [address] [facility] [place], [address], [place]. tel:[phone] Referring Provider: Jerry Haynes, [address] [facility] [place], [address]. tel:[phone] [facility], [address] [place], [place] [address]st [address], [place], [place], [address], [phone] [facility] [place] No Information 4 Julia Goldsmith. [address], [address], [place], [facility], . tel:[phone] Referring Provider: Lien Spann, [facility] [address], [facility]. tel:[phone] [facility], [address] [place] [address] [address], [place], [place], [address], [phone] SEC Tereso Aguiar No Information 4 Julia Goldsmith. [address] [facility], [address] [place] [address], [facility], . tel:[phone] Referring Provider: Lien Spann, [address], [facility]. tel:[phone] Office/outpa tient Visit, [facility], [address], [place], [place], [address], [phone] SEC Samir [facility] Professional No Information 4 Julia Goldsmith. [address], [address] [place] [address], [facility], . tel:[phone] Referring Provider: Lien Spann, [address], [facility]. tel:[phone] Family History Family Member Type Diagnosis Age At Onset Mother Problem (finding) diabetes melli tus in first degree relative Father Problem (finding) glaucoma Payers Payer name Insurance type Covered democrat ID Authorpoa ticonstanza(s) No Information Social History Type Description Quantity Date Captured Comments Alcohol Use Details Unknown Caffeine Use Details Unknown Tobacco Use Status No Information Smoking Status No Information Sex Male Chief Complaint And Reason For Visit From encounter dated '02/27/2017 11:30'. Post-Op (chief complaint). Description: The 71 year old male presents for a 1 month post op YAG OC OD. Patient states the brightness is much better in OD. Reason For Referral Reason For Referral No Information History Of Present Illness Encounter Date Complaint History Of Prese nt Illness Post-Op The 71 year old male presents for a 1 month post op YAG OC OD. Patient states the brightness is much better in OD. Laser procedure The 71 year old male presents for a 1 month post op YAG PC OS. Patient states vision is much better OS. Patient wishes to proceed with YAG PC OD because of cloudy vision and notices a difference between eyes. evaluation The 71 year old male presents for a YAG PC evaluation ou per Dr. Дмитрий Morales. Patient c/o cloudy vision ou and decreased vision ou x 2 months. Patient is a diabetic and last A1C was 6.9. Difficulty reading Patient prese nts for a 6 month IOL check. Patient denies any changes in vision. F/u exam, postop The 68 year old male presents for a two week phaco c IOL OS. Pt denies any pain or discomfort at this time. Pt states v/a is stable. Pt uses Pred QID OS and Ilevro BID OS. F/u exam, postop Patient present s for a 1 day post op CE OS. Patient states os feels a little scratchy. F/u exam, postop Patient present s for a 2 week post op CE OD. Patient is using Pred 1% bid and Ilevro bid OD. Patient states OD itches. Patient wishes to proceed with CE OS because of cloudy vision. 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 Follow up - Return t o Дмитрий Morales, OD for regularly scheduled visits Impression/Plan - 1 month s/p Yag Cap OS:- Patient has noticed a significant improvement in OS vision.- Patient is still having difficulty with OD vision being cloudy and bothered by glare.- Recommend Yag Cap OD today.Posterior Capsular Opacification OD:- PCO accounts for patient's residual visual complaints.- Diagnosis discussed in detail. - Yag Laser treatment, R/B/A discussed with patient.- Advised patient to call with new onset of floaters, flashes of light or a veil covering part of the vision.- Patient elects to proceed with Yag Laser Capsulotomy OD today.- Consent was obtained.- Patient to return in 1 month for Yag PO OD and then will return to Дмитрий Morales OD. 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 - Yag Laser treatment, R/B/A discussed with patient.- Advised patient to call with new onset of floaters, flashes of light or a veil covering part of the vision.- Patient elects to proceed with Yag Laser Capsulotomy OS today.- Consent was obtained.- IOP check 45 minutes after procedure was not significantly elevated from baseline.- Patient to return in 1 month for Yag PC PO OS + Yag PC OD. Follow up - 1 month Yag PC PO OS + Yag PC OD Pseudophakia - Educa tional material given Related to Pseudophakia - IOLs stable. Macul ar degeneration, dry type with stable vision. Will continue to monitor vision and the patient has been instructed to call with any vision changes. Counseling about the benefits and/or risks of the Age-Related Eye Disease Study (AREDS) formulation for preventing progression of age-related macular degeneration (AMD) was provided to the patient. RTC in 1 year for a complete exam. Related to See list of assessments above - Return in 1 year Related to Se e list of assessments above - 2 week post op to s/p phaco with IOL OS. Healing well. Medication instillation and post op instructions reviewed. Discussed ERM OD in detail with pt. Scheduled appt with Retina in 1 month for ERM OD. RTC in 6 months. Educational materials provided:about today's exam. Related to See list of assessments above - RTC in 6 months Related to See list of assessments above - One day s/p phaco with IOL OS. IOL in good position. Medication instillation and post op instructions reviewed. RTC as scheduled or sooner if problems. Related to See list of assessments above - RTC as scheduled Related to Se e list of assessments above - 2 week post op to s/p phaco with IOL OD. Healing well. Medication instillation and post op instructions reviewed. Ok to proceed with CE OS. Educational materials provided:about today's exam. Related to See list of assessments above - RTC as needed Related to See l ist of assessments above General plan -FOLLOW -UP SURGERY NOS - One day s/p phaco with IOL OD. IOL in good position. Medication instillation and post op instructions reviewed. RTC as scheduled or sooner if problems. Educational materials provided:about today's exam. 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 Cataracts diagnosis discussed with pt in detail. Discussed all risks, benefits, procedure and recovery regarding cataract sx. Patient understands changing glasses will not improve vision. Patient desires to have surgery, recommend phacoemulsification with intraocular lens. Advised pt that he will need reading glasses with standard lens. Discussed risks of retina detachment after cataracts sx. Schedule CE OD - standard lens first. RTC as scheduled. Educational materials provided:about today's exam. Letter sent to Dr. Butcher. Related to See impression: general plan - RTC as scheduled Related to Se e impression: general plan Assessments Type Assessment Date assessment Surgery follow-up examination Ap Patient Care Teams Name Effective Dates (start - stop) Status Members No Information
--- OUTSIDE RECORDS SUMMARY | 2025-07-01 10:08 | XMS_ITS | Encounter Summary ---
Author Organization [facility] Address [address] [place] [address] Care Team Providers Care Gis Consultant Name Role Phone Unavailable Primary Care Provider Unavailabl e Encounter Details Date Type Department Care Team (Late st Contact Info) Description 06/30/2025 External Device Data [facility] ABSTRACTION Provider, Abstract NO ADDRESS ON FILE Social History Tobacco Use Types Packs/Day Years Used Date Smoking Tobacco: Unknown Sex and Gender Information Value Date Recorded Sex Assigned at Not on file Legal Sex Male 4:09 PM CDT Gender Identity Not on file Sexual Orientation Not on file documented as of this encounter Plan of Treatment Not on file documented as of this encounter Visit Diagnoses Not on filedocumented in this encounter
--- OUTSIDE RECORDS SUMMARY | 2025-07-01 10:08 | XMS_ITS | Encounter Summary ---
Author Organization [facility] Address [address] [place] [address] Care Team Providers Care Turbinated Bone Grinder Name Role Phone Unavailable Primary Care Provider [...]
--- OUTSIDE RECORDS SUMMARY | 2025-07-01 10:09 | XMS_ITS | Encounter Summary ---
Author Organization [facility] Address [facility] [facility] [place] [address] Care Team Providers Care Forepart Rounder Name Role Phone Hakan Mccormick MD Primary Care Provider [phone] Encounter Details Date Type Department Care Team (Late Contact Info) Description 10/19/2020 Lab Requisition [facility] Care DermPath Lab [address] [place] [phone] Gabriela Saunders MD [address] [place] [address] Social History Tobacco Use Types Packs/Day Years Used Date Smoking Tobacco: Never Smokeless Tobacco: Never Alcohol Use Standard Drinks/Week Comments No 0 (1 standard drink = 0.6 oz pur e alcohol) Sex and Gender Information Value Date Recorded Sex Assigned at Not on file 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 Gender Identity Not on file Sexual Orientation Not on file documented as of this encounter Plan of Treatment Upcoming Encounters Date Type Department Care Team (Late Contact Info) Description 09/17/2025 2:00 PM WET MACHINE CUTTER Office Visit [facility] - Pulmonology [address] [place] [phone] Michoacano Rodriguez MD [address] [place] [phone] documented as of this encounter Procedures Procedure Name Priority Date/Time Associated Diagnosis Comments DERMATOPATHOLOGY Routine 10/18/2020 12:0 0 AM WET MACHINE CUTTER documented in this encounter Results * DERMATOPATHOLOGY (10/18/2020 12:00 AM WET MACHINE CUTTER) Case Report Dermatopathology Report Case: [id number] Authorizing Provider: Gabriela Saunders MD Collected: 10/18/2020 12:00 AM Ordering Location: [facility] DermPath Lab Received: 10/19/2020 09:09 AM Pathologist: Barbara Ford MD Specimens: A) - Skin, right jawline B) - Skin, left FA C) - Skin, left corner of mouth 0 12:23 PM WET MACHINE CUTTER DERMATOPATHOLOGY LABORATORY Final Diagnosis Specimen A. 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 SKIN, left FA: BASAL CELL CARCINOMA, NODULAR TYPE (C44.619) Specimen C. SKIN, left corner of mouth: BASAL CELL CARCINOMA, NODULAR TYPE (C44.319) 0 12:23 PM [facility] DERMATOPATHOLOGY LABORATORY at [address] WET MACHINE CUTTER Clinical History A: R/O SCC. B: BCC vs SCC. C: R/O BCC. 0 12:23 PM [facility] DERMATOPATHOLOGY LABORATORY Gross Description Specimen A: Received is one formalin filled container labeled with the patient's name and designated right jawline. The specimen consists of a shave biopsy measuring [id number]. Jar 0. Specimen B: Received is one formalin filled container labeled with the patient's name and designated left FA. The specimen consists of a shave biopsy measuring [id number]. Jar 0. Specimen C: Received is one formalin filled container labeled with the patient's name and designated left corner of mouth. The specimen consists of a shave biopsy measuring [id number]. Jar 0. 0 12:23 PM WET MACHINE CUTTER DERMATOPATHOLOGY LABORATORY Microscopic Description Specimen A. SKIN, [...] ratio and peripheral palisading. 0 12:23 PM WET MACHINE CUTTER DERMATOPATHOLOGY LABORATORY Disclaimer An external and internal positive and negative controls are appropriate for the histochemical, immunohistochemical and immunofluorescence stain(s) in this case (if any), except where stated explicitly. The performance characteristics of the stain(s) cited in this report were developed and its performance characteristic determined by the Dermatopathology Laboratory at [facility], directed by Dr. Bridget Damon. These tests need not be, and therefore are not, approved by the [place] Food and Drug Administration. The tests are used for clinical purposes. Billing Codes Specimen Charges Stain Charges 34098 26522 22265 1 1 1 0 12:23 PM WET MACHINE CUTTER DERMATOPATHOLOGY LABORATORY Embedded Images 0 12:23 PM WET MACHINE CUTTER DERMATOPATHOLOGY LABORATORY Pathology/Cytology TISSUE SPECIMEN FROM SKIN / Unknown 10/18/2020 10/19/2020 9:09 AM WET MACHINE CUTTER Miscellaneous samples (specimen) TISSUE SPECIMEN FROM SKIN / Unknown 10/18/2020 10/19/2020 9:09 AM WET MACHINE CUTTER Miscellaneous samples (specimen) TISSUE SPECIMEN FROM SKIN / Unknown 10/18/2020 10/19/2020 9:09 AM WET MACHINE CUTTER Gabriela Saunders MD LAB - PATHOLOGY/CYTOLOGY ORD ERABLES Final Result DERMATOPATHOLOGY LABORATORY [facility] - Department of Dermatology [facility] Medicine [address] [place] [address], [address] [phone] documented in this encounter Visit Diagnoses Not on filedocumented in this encounter Care Teams Forepart Rounder Relationship Specialty Start Date End Date Hakan Mccormick MD PCP - General 04/24/11 documented as of this encounter
--- OUTSIDE RECORDS SUMMARY | 2025-07-01 10:09 | XMS_ITS | Clinical Summary ---
Author Organization [facility] Address [address] [place] [address] Care Team Providers Care Corporate Training Manager Name Role Phone Maria Esther Montemayor OT Unavailable Unavailable Mahesh Llamas MD Primary Care Provider [phone] Allergies Active Allergy Reactions Criticality Noted Date Comments Iodinated Contrast Media Nausea & Vomiting,Other (See comments) High 05/01/2011 Vomiting and chest pain Iodine Other (See comments) Reaction: Unknown, Ioversol Other (See comments) Reaction: Unknown, Sulfa Unknown 05/03/2025 Medications aspirin 81 mg enteric coated tablet Take 1 tablet (81 mg total) by mouth daily Active vitamin A04-jotyn acid 0.5-1 mg tablet Take 1 tablet by mouth every other day Active oxymetazoline (AFRIN) 0.05 % nasal spray Administer 2 sprays into each nostril 2 (two) times a day 30 mL 5 Active potassium chloride ER (KLOR-CON) 20 mEq CR tablet Take 2 tablets (40 mEq total) by mouth 2 (two) times a day for 10 days 40 tablet 5 Active chlorthalidone (HYGROTON) 50 mg tablet Take 1 tablet (50 mg total) by mouth 3 (three) times a week 12 tablet 11 5 01/07/20 26 Active imiquimod (ALDARA) 5 % cream Wash hands prior to and following application Apply to left lower leg lesion 2 times a day for 14 days. 12 each 5 Active Additional Information Patient not taking.Informant: Spouse/Significant Other, Reported on 05/03/2025 furosemide (LASIX) 40 mg tabletIndication s:Hypertension, essential TAKE 1 TABLET BY MOUTH DAILY. GENERIC EQUIVALENT FOR LASIX 90 tablet 3 5 Active isosorbide mononitrate ER (IMDUR) 60 mg 24 hr tablet TAKE 1 TABLET BY MOUTH DAILY ALONG WITH 30 MG TO TOTAL 90 MG DAILY 5 Active carvediloL (COREG) 6.25 mg tablet TAKE 1 TABLET(6.25 MG) BY MOUTH TWICE DAILY WITH MEALS 180 tablet 3 5 Active metFORMIN XR (GLUCOPHAGE XR) 500 mg 24 hr tablet TAKE 4 TABLETS BY MOUTH DAILY WITH THE EVENING MEAL 360 tablet 3 5 Active oxyBUTYnin (DITROPAN) 5 mg tablet Take 1 tablet (5 mg total) by mouth 2 (two) times a day 180 tablet 3 5 Active atorvastatin (LIPITOR) 40 mg tablet Take 1 tablet (40 mg total) by mouth daily 90 tablet 1 5 Active Active Problems Problem Noted Date Diagnosed [...] 10/11/2023 Assessment & Plan (10/11/2023 3:31 PM CYBER ANALYST): Acute problem- this is a new problem [...] 06/21/2020 Assessment & Plan (01/18/2024 11:06 AM CYBER ANALYST): Check thyroid studies again due to anemia and call back for results Assessment & Plan (07/10/2023 2:32 PM CDT): Remains asymptomatic and will check TSH and free T4 in 1 year. Assessment & Plan (01/08/2023 1:39 PM CYBER ANALYST): Check TSH and FT4 before next visit. [...] mg Assessment & Plan (01/18/2024 11:06 AM CYBER ANALYST): Rate controlled on carvedilol and will continue anticoagulation based on call center support representative's recommendations. Assessment & Plan (07/10/2023 2:30 PM CDT): Rate controlled on carvedilol and will continue anticoagulation per his call center support representative recommendations. Assessment & Plan (07/10/2022 1:40 PM CDT): Rate controlled will continue anticoagulation per his call center support representative recommendations Assessment & Plan (10/24/2021 2:41 PM CYBER ANALYST): Rate controlled on carvedilol and will continue anticoagulation per his call center support representative. Assessment & Plan (07/07/2021 1:42 PM CDT): Rate controlled on beta-robyn will continue Xarelto for anticoagulation. Assessment & Plan (01/06/2021 7:51 PM CYBER ANALYST): Rate controlled on beta-robyn and continue Xarelto for anticoagulation. Assessment & Plan (10/29/2020 2:25 PM CYBER ANALYST): Rate controlled on his beta-robyn and will continue Xarelto for anticoagulation. Assessment & Plan (06/21/2020 10:17 AM CDT): Continue Xarelto for anticoagulation through his call center support representative office and rate is currently well controlled on his metoprolol Chronic left shoulder pain 11/24/2019 Assessment & Plan (11/24/2019 12:02 PM CYBER ANALYST): X-rays show osteoarthritis. Examination shows possible impingement syndrome. Orthopedic referral for further evaluation. SSS (sick sinus syndrome) 11/14/2019 Assessment & Plan (11/14/2019 1:52 PM CYBER ANALYST): Last interrogation showed 9% A pace, 12% V pace frequent PAF with burden 40%, MARIO 7.3 years Lymphedema due to venous insufficiency 9 Overview (06/21/2020): Discharged from [facility]; pump + velcro compression bandages. 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 for possible lower extremity infection Assessment & Plan (01/18/2024 11:06 AM CYBER ANALYST): Encouraged strict compliance with his wrappings and [...] pump. Assessment & Plan (10/24/2021 2:41 PM CYBER ANALYST): He has some skin breakdown on his left lower extremity and will refer to [facility] wound care center for further evaluation. He may need to go back to [facility] for chronic management of his lymphedema. Assessment & Plan (07/07/2021 1:42 PM CDT): Continue pump and Velcro compression bandages and return to [facility] as needed. Assessment & Plan (06/21/2020 10:17 AM CDT): He should be more compliant with his pump and Velcro compression bandages. Assessment & Plan (11/24/2019 12:01 PM CYBER ANALYST): Patient should follow-up with the lymphedema clinic and follow their directions. Assessment & Plan (07/24/2019 5:01 PM CDT): Referral to [facility] lymphedema clinic. Will see him back in about a month for his missed follow-up examination with lab sooner if needed. Basal cell carcinoma (BCC) of right upper arm Overview (05/19/2019): Added automatically from request for surgery [id number] Skin lesion of right upper extremity 05/06/2019 Ventral hernia without obstruction or gangrene 0 04/24/2019 Overview (04/24/2019): Added automatically from request for surgery [id number] Assessment & Plan (07/24/2019 5:00 PM CDT): [...] 03/21/2018 Assessment & Plan (09/18/2024 7:55 PM CYBER ANALYST): Wound care as discussed. Start on Augmentin b.i.d. times 10 days. Assessment & Plan (01/18/2024 11:06 AM CYBER ANALYST): Cephalexin for 10 days and call back if no improvement. Assessment & Plan (11/24/2019 12:02 PM CYBER ANALYST): Resolved after the addition of Bactrim. Return to clinic for recurrent signs of infection. Follow-up with the lymphedema clinic as they direct. Assessment & Plan (11/10/2019 5:45 PM CYBER ANALYST): Significantly improved since last visit. Patient instructed [...] evaluation. Assessment & Plan (11/10/2019 4:57 PM CYBER ANALYST): Will add Bactrim 800-160 mg per tab [...] discussed. Assessment & Plan (10/29/2019 2:43 PM CYBER ANALYST): Recommend in doxycycline 100 mg b.i.d. Times 10 days and follow-up in 1 week. In addition instructed on use of pjwp-jbx-hprwbhz probiotics as well as yogurt to help [...] days follow up here in a week. Dcnd-bdn-fevexab probiotics or Bulgarian yogurt to assist GI upset was discussed. [...] recommended. Assessment & Plan (10/22/2018 2:07 PM CYBER ANALYST): Patient is encouraged to lose weight with [...] associated with continued morbid obesity discussed. Thrombocytopenia ([facility]/HCC) 02/05/2018 Assessment & Plan (09/18/2024 7:55 PM CYBER ANALYST): Followed by hematology. Assessment & Plan (01/18/2024 11:05 AM CYBER ANALYST): Platelet level back to baseline. Currently asymptomatic. Assessment & Plan (07/10/2023 2:33 PM CDT): Asymptomatic. Just below his chronic baseline will check again in 6 months and he should call back if bruising or bleeding develops. Hematology referral if worsens. Assessment & Plan (07/10/2022 1:39 PM CDT): Mild chronic stable and asymptomatic. Check again 1 year. Assessment & Plan (11/30/2021 5:51 PM CYBER ANALYST): Chronic, stable. SCDs for DVT ppx. Assessment & Plan (10/24/2021 2:40 PM CYBER ANALYST): Chronic mild stable and asymptomatic Assessment & [...] 08/02/2017 Assessment & Plan (01/18/2024 11:07 AM CYBER ANALYST): Recheck B12 level along with iron panel, [...] year. Assessment & Plan (01/06/2021 7:51 PM CYBER ANALYST): Continue B12 supplementation. Assessment & Plan (06/21/2020 [...] medication. Assessment & Plan (01/06/2021 7:51 PM CYBER ANALYST): Remains stable without medication. Assessment & Plan (06/21/2020 10:17 AM CDT): Remains stable without medication. Assessment & Plan (08/25/2019 3:19 PM CDT): Remains stable without medication. Assessment & Plan (03/05/2019 9:51 AM CDT): Stable without medication. Assessment & Plan (10/22/2018 2:06 PM CYBER ANALYST): Stable without medication. Assessment & Plan (07/15/2018 9:35 PM CDT): Declines need for medication Assessment & Plan (02/05/2018 5:51 PM CDT): Stable without medication. Edema of both legs 08/02/2017 Assessment & Plan (11/30/2021 5:50 PM CYBER ANALYST): Secondary to lynphedema. Chronic, stable. ProBNP is normal. Follows with Dr. Baeza as outpatient. Assessment & Plan (10/29/2020 2:25 PM CYBER ANALYST): He knows to be more compliant with [...] level or above, find some sequential stockings [id number] to see if that can assist with [...] NOS Assessment & Plan (09/18/2024 7:54 PM CYBER ANALYST): BP at goal 110/70. Continue present medications. Assessment & Plan (06/25/2024 12:57 PM CDT): Stable, well controlled, blood pressure goal; no chest pain or pressure; no headaches Continue carvedilol 6.25 mg daily Assessment & Plan (01/18/2024 11:05 AM CYBER ANALYST): Blood pressure well controlled on carvedilol, chlorthalidone, lisinopril Assessment & Plan (07/10/2023 2:31 PM CDT): Blood pressure well controlled on carvedilol, chlorthalidone, lisinopril Assessment & Plan (01/08/2023 1:39 PM CYBER ANALYST): Blood pressure well controlled on chlorthalidone, lisinopril Assessment & Plan (07/10/2022 1:40 PM CDT): Well controlled on the current regimen. Avoidance of salt, proper body weight, and routine exercise recommended. Assessment & Plan (02/23/2022 1:55 PM CDT): Well controlled on the current regimen. Avoidance of salt, proper body weight, and routine exercise recommended. Assessment & Plan (12/09/2021 10:30 AM CYBER ANALYST): Well controlled on the current regimen. Avoidance of salt, proper body weight, and routine exercise recommended. Assessment & Plan (11/30/2021 5:49 PM CYBER ANALYST): Home meds resumed, BP is well controlled. Will hold beta robyn as stress test planned for tomorrow. Continue to monitor. Assessment & Plan (10/24/2021 2:40 PM CYBER ANALYST): Well controlled on the current regimen. Avoidance of salt, proper body weight, and routine exercise recommended. Consider restarting low-dose lisinopril if micro and creatinine ratio raise in the future. Assessment & Plan (07/07/2021 1:41 PM CDT): Well controlled on the current regimen. Avoidance of salt, proper body weight, and routine exercise recommended. Assessment & Plan (01/06/2021 7:51 PM CYBER ANALYST): Well controlled on the current regimen. Avoidance of salt, proper body weight, and routine exercise recommended. Assessment & Plan (10/29/2020 2:25 PM CYBER ANALYST): Continue holding lisinopril. Call back if blood pressures elevate consistently near 140/90 so we can restart lisinopril 5 mg daily. He is to check with call center support representative regarding which beta-robyn he should be on. We may need to cut down his chlorthalidone or furosemide in the future. Assessment & Plan (06/21/2020 10:17 AM CDT): Well controlled on the current regimen. Avoidance of salt, proper body weight, and routine exercise recommended. Assessment & Plan (11/24/2019 11:58 AM CYBER ANALYST): Well controlled on the current regimen. Avoidance [...] recommended. Assessment & Plan (10/22/2018 2:06 PM CYBER ANALYST): Well controlled on the current regimen. Avoidance [...] NEC/NOS Assessment & Plan (01/18/2024 11:05 AM CYBER ANALYST): Well controlled on current therapy and will check a lipid panel and LFTs in 6 months. Assessment & Plan (07/10/2023 2:31 PM CDT): Well controlled on current therapy and will check a lipid panel and LFTs in 6 months. Assessment & Plan (01/08/2023 1:39 PM CYBER ANALYST): Well controlled on current therapy and will [...] months. Assessment & Plan (12/09/2021 10:31 AM CYBER ANALYST): Continue his atorvastatin check lipids and LFTs before next visit. Assessment & Plan (10/24/2021 2:40 PM CYBER ANALYST): Well controlled on current therapy and will check a lipid panel and LFTs in 6 months. Assessment & Plan (07/07/2021 1:41 PM CDT): Well controlled on current therapy and will check a lipid panel and LFTs in 6 months. Assessment & Plan (01/06/2021 7:51 PM CYBER ANALYST): Well controlled on current therapy and will [...] months. Assessment & Plan (10/22/2018 2:06 PM CYBER ANALYST): Well controlled on current therapy and will [...] and LFTs in 6 months. 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 03/28/2014 Overview (02/15/2017): COR ATH UNSP VSL NTV/GFT Assessment & Plan (06/25/2024 12:56 PM CDT): Stable, well controlled, catheterization in 2021 Continue ASA 81 mg daily, atorvastatin 40 mg daily, carvedilol 6.25 mg b.i.d., Imdur 60 mg daily Assessment & Plan (01/18/2024 11:04 AM CYBER ANALYST): Continue continue current medication regimen follow up with his call center support representative as they direct Assessment & Plan (07/10/2023 2:30 PM CDT): Continue current medication regimen and follow up with his call center support representative as they direct Assessment & Plan (07/10/2022 1:40 PM CDT): Continue current medication regimen follow up with call center support representative as they direct Assessment & Plan (12/09/2021 10:30 AM CYBER ANALYST): Recent catheterization without need for intervention. Continue current medication regimen and follow up with call center support representative as they direct. Assessment & Plan (07/07/2021 1:41 PM CDT): Continue current medication regimen and follow up with call center support representative as they direct. Assessment & Plan (01/06/2021 7:52 PM CYBER ANALYST): Continue current medication regimen and follow up with call center support representative as they direct. Assessment & Plan (06/21/2020 10:18 AM CDT): Continue current medication regimen follow up with call center support representative as they direct. Assessment & Plan (11/14/2019 1:50 PM CYBER ANALYST): Pt currently denies any chest pain or shortness of breath Assessment & Plan (08/25/2019 3:19 PM CDT): Continue aspirin, atorvastatin, carvedilol, isosorbide mononitrate, lisinopril, Xarelto and follow up with call center support representative as they direct. Assessment & Plan (05/04/2019 2:10 PM CDT): Continue aspirin, atorvastatin, carvedilol, isosorbide mononitrate, lisinopril and follow up with call center support representative as they direct. I Have asked him [...] nitroglycerin p.r.n. and follow up with his call center support representative as they direct Assessment & Plan (08/02/2017 2:51 PM CDT): Continue current medication regimen and follow up with call center support representative as he directs. Degeneration of intervertebral disc of cervical region 03/28/2014 Overview (02/15/2017): DDD (degenerative disc disease), cervical History of prostate cancer 03/28/2014 Overview (02/05/2018): Davinci prostatectomy [address] gonzalez. Assessment & Plan (01/18/2024 11:05 AM CYBER ANALYST): Recommend PSA checks once yearly. Assessment & Plan (07/10/2023 2:31 PM CDT): PSA remains undetectable and will check again 1 year. Assessment & Plan (10/24/2021 2:40 PM CYBER ANALYST): PSA undetectable. Assessment & Plan (07/07/2021 1:41 [...] weekly Assessment & Plan (01/18/2024 11:07 AM CYBER ANALYST): A1c, LDL, and blood pressure currently well [...] abnormal. Assessment & Plan (01/08/2023 1:38 PM CYBER ANALYST): A1c, LDL, and blood pressure currently well [...] abnormal. Assessment & Plan (11/30/2021 5:48 PM CYBER ANALYST): On Metformin and Trulicity at home. Here initiated on insulin basal bolus regimen per hospital protocol. Monitor accuchecks on SSI, titrate regimen as needed. Assessment & Plan (10/24/2021 2:40 PM CYBER ANALYST): A1c, LDL, and blood pressure currently well controlled on current regimen. Check a yearly diabetic eye exam and blood sugars daily. Monofilament testing is intact. Assessment & Plan (07/07/2021 1:41 PM CDT): A1c up trending and we discussed importance of diet exercise and weight loss. Continue his metformin Trulicity and repeat A1c before next visit. Assessment & Plan (01/06/2021 7:51 PM CYBER ANALYST): A1c, LDL, and blood pressure currently well [...] . Assessment & Plan (10/22/2018 2:06 PM CYBER ANALYST): A1c, LDL, and blood pressure currently well [...] 05/05/2025 Assessment & Plan (12/09/2021 10:30 AM CYBER ANALYST): No recurrences since discharge. Unremarkable coronary catheterization. Follow up Cardiology as they direct. Assessment & Plan (11/30/2021 5:47 PM CYBER ANALYST): Pt with significant cardiac history, presenting with [...] Encounters Date Type Department Care Team Description 05/27/2025 8:15 AM CDT Ancillary Procedure [facility] [address] [place] [phone] SSS (sick sinus syndrome) (HCC); Cardiac pacemaker in situ; Paroxysmal atrial fibrillation (HCC) 05/08/2025 2:54 PM CDT - 05/08/2025 11:59 PM CDT Hospital Encounter [facility] Emergency, Room R Discharge Disposition: Discharge to home or self care 05/03/2025 8:53 AM CDT - 05/08/2025 2:44 PM CDT Hospital Encounter [facility] [address] [id number] Bob Albert MD Nikolic, Jelena, MD [place]ahan, [...] Discharge to SNF 05/03/2025 8:17 AM CDT - 05/03/2025 11:59 PM CDT Hospital Encounter [facility] Emergency, Room R Discharge Disposition: Discharge to home or self care 04/14/2025 1:30 PM CDT Office Visit [facility] at [address] [place] [address] [place] [address] Bernard Martinez MD Paroxysmal atrial fibrillation (HCC) (Primary Dx) from Last 3 Months Immunizations Immunization Administration [...] Comments OTHER SURGICAL HISTORY chest pain -2009: [facility] OTHER SURGICAL HISTORY MATHEUS: CPAP OTHER SURGICAL HISTORY skin lesion removed head and nose 04/2011: [facility] OTHER SURGICAL HISTORY R Ventricular Thrombus: 6 months coumadin OTHER SURGICAL HISTORY Cancer, basal Cell: Right nasolabial fold excised, 04/22; [facility] OTHER SURGICAL HISTORY prostate biopsy 10-20-11, positive for ca: Dr. 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; 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 Medical History Medical History Date Comments Actinic keratosis Actinic Kerato sis Hx Other Medical -Dermatologis t Hx Other Medical transient compl ete heart block 2/ matheus Hx Other Medical -cardio Hx Other Medical chest pain 03-31 10 Myocardial infarction (HCC) Myoc ardial infarction Malignant neoplasm of skin Cance r, skin Hypertension Hypertension Diabetes mellitus (HCC) Diabetes Hx Other Medical -neurologist Hx Other Medical MATHEUS Hx Other Medical MO, stents 12/22 Hx Other Medical skin lesion [...] arm, Left Ear Type 2 diabetes mellitus Sleep apnea CPAP it works f or [...] drink = 0.6 oz pur e alcohol) [facility] Utilities Answer Date Recorded In the past 12 months has [employer] electric, gas, oil, or water company threatened to shut off services in your home? No 05/04/2025 Social Connection and Isolation Panel Answer Date Recorded In a typical week, how many times do you talk on the phone with family, friends, or neighbors? Once a week 05/04/2025 How often do you get together with friends or re latives? Once a week 05/04/2025 How often do you attend mu-ism or taoist serv ices? Never 05/04/2025 Do you belong to any clubs o r organizations such as mu-ism groups, unions, fraternal or athletic groups, or [...] place to sleep or slept in a mcfp (including now)? No 03/04/2024 Housing Stability Vital Sign Answer Damien e Recorded In the last 12 months, was t here a time when you were not able to pay the mortgage or rent on time? No 05/04/2025 In the past 12 months, how m any times have you moved where you were living? 0 05/04/2025 At any time in the past 12 m [facility], were you homeless or living in a mcfp (including now)? No 05/04/2025 Personal Safety Answer [...] on file Legal Sex Male 11:50 PM CYBER ANALYST Gender Identity Not on file Sexual [...] 01/17/2025 01/18/2024, 12/14, 07/10/2022, Additional history exists Influenza Vaccine (#1) 2025 , 09/14/2023, 09/25/2022, Additional history exists Prostate Cancer Screening-PSA 09/09/2025 09/09/2024, 06/28/2023, 10/05/2021, Additional history exists Zoster Vaccine (1 of 2) 09/17/2025 Post poned from 1994 (Patient declined, but will receive in the future) Dilated Eye Exam 10/13/2025 10/13/2024, , 04/19/2020, Additional history exists Hemoglobin A1C 12/10/2025 06/09/2025, 05/12, 09/09/2024, Additional history exists Fall Risk Assessment 05/08/2026 05/08/2025, 06/12/2024, 01/18/2024, Additional history exists eGFR 05/08/2026 05/08/2025, 04/13, 05/06/2025, Additional history exists Lipid Panel 05/26/2026 05/26/2025, 08/13, 01/10/2024, Additional history exists Pneumococcal vaccine 65+ Completed 016, 09/02/2014, 08/06/2014, Additional history exists Hepatitis B Screening Completed 09/09/2024 Medical Devices Implanted Type Area Knockout Man Device Identifier Shelf Expiration Date Model / Serial / Lot Pacemaker Pacemaker Left: Chest Stent Stent N/A: Heart Description:Multiple [employer]/C R Bard [id number] Ventralight St Sepra 8x6in Uncoated Monofilament Lightweight - [id number] Implanted:Qty: 1 on 06/30/2019 by Hany Pereira MD at [facility] N/A: Abdomen [employer] 09/08/2020 [id number] / / [id number] Daig [employer] [id number] Angio-Seal Evolution 6fr .035in Guidewire Bypass Tube Suture - [id number] Implanted:Qty: 1 on 12/02/2021 by Virgen Vallecillo MD at [facility] [employer] 08/11/2022 [id number] / / Procedures Procedure Name Priority Date/Time Associated Diagnosis Comments DEVICE CHECK - REMOTE Routine 05/26/2025 11:00 AM CDT SSS (sick sinus syndrome) (HCC) Cardiac pacemaker in situ Paroxysmal atrial fibrillation (HCC) POCT GLUCOSE DEVICE Routine 05/08/2025 1 1:48 [...] AUTO DIFFERENTIAL STAT 05/03/2025 9:10 AM CDT DIABETIC EYE EXAM Routine 10/13/2024 2:0 6 PM CYBER ANALYST HEMOGLOBIN A1C Routine 09/09/2024 10:07 AM CDT Type 2 diabetes mellitus with diabetic polyneuropathy, without long-term current use of insulin (HCC) LIPID PANEL Routine 09/09/2024 10:07 AM CDT Hypertension, essential PSA SCREEN Routine 09/09/2024 10:07 AM CDT Screening PSA (prostate specific antigen) ALBUMIN CREATININE RATIO, URINE Routine 01/10/2024 8:58 AM CYBER ANALYST Hypertension, essential Mixed hyperlipidemia Type 2 diabetes mellitus with diabetic polyneuropathy, without long-term current use of insulin (HCC) DIABETES FOOT EXAM Routine 01/25/2017 COLONOSCOPY IMAGES 01/15/2015 from Last 3 Months or Most Recently Relevant to Health Maintenance Results * DEVICE CHECK - REMOTE (05/26/2025 11:00 AM CDT) Anatomical Region Laterality Modality Other Narrative 06/03/2025 11:10 AM CDT Images from the original result were not included. 05/27/2025 [employer] quarterly remote device check NOTE The following shows snippets from the complete quarterly report. The complete report in its entirety is attached to this Result Text in Manager Activities Last in-office check: October 2024 Next in-office appointment: August [address] Juan OBRIEN PPM, implanted 09/02/2014 Battery longevity = OK/35% AT/AF burden 0% Ap: 64% Paperhanger Assistant: 3% No events this monitoring period Device Nurse Review and Recommendations below Reviewed By Soila Emery RN BSN at 10:07 AM Review and Recommendations below (please forward an in-basket message to your MA if check requires attention) ATTESTATION I have reviewed the device interrogation report associated with this encounter in detail. I agree with the documentation recorded/scanned into the electronic medical record. Recommendations: Continue current device follow-up. Ivy Johnson MD us Ivy Johnson MD [facility] [place] OCEDURES Final Result * POCT glucose (05/08/2025 11:48 AM CDT) Glucose, POC 135 70 - 199 mg/dL Blood 05/08/2025 11:4 8 AM CDT 05/08/2025 11:48 AM CDT us Roseann Cui DO LAB POCT ORDERABLES - DE VICE Final Result Performing Organization Address City/[facility]/ZIP Co de Phone Number ROHAN CUEVAS ([place]) 1 [facility] [place] [address] * POCT glucose (05/08/2025 7:54 AM CDT) Glucose, POC 107 70 - 199 mg/dL Blood 05/08/2025 7:54 AM CDT 05/08/2025 7:54 AM CDT us Roseann Cui DO LAB POCT ORDERABLES - DE VICE Final Result Performing Organization Address [facility] Co de Phone Number ROHAN CUEVAS [place]) [address] [place] [address] * eGFR (05/08/2025 4:54 AM CDT) eGFR [...] ORDERABLES Fin al Result Performing Organization Address City/[facility]/ZIP Co de Phone Number ROHAN CUEVAS ([place]) 1 [facility] [place] [address] * Differential, auto (05/08/2025 4:54 AM CDT) Neutrophil abs 2.57 1.50 - 6.50 K/cumm Imm gran abs 0.08 0.00 - 0.10 K/cumm [facility] ([place]) Lymphocyte abs 1.13 0.80 - 3.30 K/cumm [facility] ([place]) Monocyte abs 0.47 0.20 - 0.80 K/cumm [facility] ([place]) Eosinophil abs 0.29 0.00 - 0.50 K/cumm [facility] ([place]) Basophil abs 0.02 0.00 - 0.10 K/cumm [facility] ([place]) Neutrophil pct 56.3 % [facility] ([place]) Comment: Interpretive Data Percent cell count reference [...] 2018. Monocyte pct 10.3 % [facility] ([place]) Comment: Interpretive Data [...] Fin al Result [facility] ([place]) 1 [facility] [place] [address] * (ABNORMAL) CBC with auto differential (05/08/2025 [...] ORDERABLES Fin al Result Performing Organization Address City/[facility]/ZIP Co de Phone Number [facility] ([place]) [address] [place] [address] * Phosphorus (05/08/2025 4:54 AM CDT) Pathologist [facility] Phosphorus, pl 2.5 2.3 - 4.5 mg/dL Blood 05/08/2025 4:54 AM CDT 05/08/2025 5:15 AM CDT Roseann Cui DO LAB BLOOD ORDERABLES Fin al Result [facility] ([place]) [address] [place] [address] * Magnesium (05/08/2025 4:54 AM CDT) [facility] Magnesium 1.8 1.4 - 2.5 mg/dL Blood 05/08/2025 4:54 AM CDT 05/08/2025 5:15 AM CDT Roseann Cui DO LAB BLOOD ORDERABLES Fin al Result [facility] ([place]) [address] [place] [address] * (ABNORMAL) Comprehensive metabolic panel (05/08/2025 4:54 AM CDT) Pathologist [facility] Sodium 137 135 - 145 mmol/L Potassium, pl 3.7 3.3 - 4.9 mmol/L [facility] ([place]) Chloride 105 97 - 110 mmol/L [facility] ([place]) CO2 24 22 - 32 mmol/L [facility] ([place]) Anion gap 8 2 - 15 mmol/L [facility] ([place]) BUN 15 6 - 25 mg/dL [facility] ([place]) Creatinine 0.84 0.80 - 1.30 mg/dL [facility] ([place]) Glucose 125 70 - 199 mg/dL [facility] ([place]) Comment: Interpretive Data Fasting glucose >/= [...] LAB BLOOD ORDERABLES Fin al Result R[facility]AN [facility] ([place]) 1 [facility] [employer] [place] [address] * POCT glucose (05/08/2025 2:31 AM CDT) [facility] Signature Glucose, POC 120 70 - 199 mg/dL Blood 05/08/2025 2:31 AM CDT 05/08/2025 2:31 AM CDT Roseann Cui DO LAB POCT ORDERABLES - DE VICE Final Result [facility] 1 [facility] [place] [address] * POCT glucose (05/07/2025 9:02 PM CDT) Glucose, POC 139 70 - 199 mg/dL Blood 05/07/2025 9:02 PM CDT 05/07/2025 9:02 PM CDT Roseann Cui DO LAB POCT ORDERABLES - DE VICE Final Result Performing Organization Address City/[facility]/ZIP Co de Phone Number ROHAN CUEVAS ([place]) 1 [facility] [place] [address] * POCT glucose (05/07/2025 4:53 PM CDT) Glucose, POC 115 70 - 199 mg/dL Blood 05/07/2025 4:53 PM CDT 05/07/2025 4:53 PM CDT Roseann Cui LAB POCT ORDERABLES - DE VICE Final Result Performing Organization Address [facility] Co de Phone Number ROHAN [facility] ([place]) 1 [facility] [place] [address] * POCT glucose (05/07/2025 11:50 AM CDT) Glucose, POC 169 70 - 199 mg/dL Blood 05/07/2025 11:5 0 AM CDT 05/07/2025 11:50 AM CDT [facility] DO LAB POCT ORDERABLES - DE VICE Final Result Performing Organization Address City/[facility] Co de Phone Number ROHAN [facility] ([place]) 1 [facility] [place] [address] * Differential, auto (05/07/2025 9:38 AM CDT) Neutrophil abs 2.13 1.50 - 6.50 K/cumm Imm gran abs 0.04 0.00 - 0.10 K/cumm [facility] ([place]) Lymphocyte abs 0.86 0.80 - 3.30 K/cumm [...] DO LAB BLOOD ORDERABLES Fin al Result [facility] ([place]) [address] [place] [address] * (ABNORMAL) CBC with auto differential (05/07/2025 9:38 AM CDT) [facility] WBC 3.61(L) 3.80 - 9.90 K/cumm Hgb 10.9(L) 13.0 - 17.5 g/dL [facility] ([place]) Hct 31.8(L) 38.9 - 50.3 % [facility] ([place] Plt 68(L) 150 - 400 K/cumm [facility] ([place] MPV 10.8 9.1 - 12.3 fL [facility] ([place]) RBC 3.47(L) 4.30 - 5.80 M/cumm [facility] ([place] MCV 91.6 81.3 - 96.4 fL [facility] ([place] MCH 31.4 27.1 - 33.3 pg [facility] ([place] MCHC 34.3 32.3 - 35.7 g/dL [facility] ([place] RDW CV 17.8(H) 11.1 - 14.9 % [facility] ([place] RDW SD 59.4(H) 35.7 - 48.1 fL [facility] ([place]) NRBC abs 0.00 0.00 - 0.01 K/cumm [facility] ([place] Blood 05/07/2025 9:38 AM CDT 05/07/2025 9:43 AM CDT Narrative [facility] ([place]) - 05/07/2025 9:46 AM CDT Reorder, morning draw was hemolyzed us Roseann Cui DO LAB BLOOD ORDERABLES Fin al Result [facility] ([place]) 1 [facility] [place] [address] * POCT glucose (05/07/2025 7:37 AM CDT) [facility] Glucose, POC 108 70 - 199 mg/dL Blood 05/07/2025 7:37 AM CDT 05/07/2025 7:37 AM CDT us Roseann Cui DO LAB POCT ORDERABLES - DE VICE Final Result R[facility]AN CUEV[facility] [place]) 1 [facility] [place] [address] * (ABNORMAL) Lactate (05/07/2025 5:13 AM CDT) Lactate 2.1(H) 0.7 - 2.0 mmol/L Blood 05/07/2025 5:13 AM CDT 05/07/2025 5:29 AM CDT us Mi Colon MD LAB BLOOD ORDERABLES Fi nal Result Performing Organization Address City/[facility]/ZIP Co de Phone Number [facility] ([place]) 1 [facility] [place] [address] * eGFR (05/07/2025 5:13 AM CDT) eGFR [...] Fin al Result ROHAN CUEVAS ([place]) [address] [place] [address] * Phosphorus (05/07/2025 5:13 AM CDT) Phosphorus, pl 2.4 2.3 - 4.5 mg/dL Blood 05/07/2025 5:13 AM CDT 05/07/2025 5:40 AM CDT Roseann Cui DO LAB BLOOD ORDERABLES Fin al Result Performing Organization Address City/[facility]/ZIP Co de Phone Number ROHAN CUEVAS ([place]) [address] [place] [address] * Magnesium (05/07/2025 5:13 AM CDT) Pathologist [facility] Magnesium 1.7 1.4 - 2.5 mg/dL Blood 05/07/2025 5:13 AM CDT 05/07/2025 5:40 AM CDT Roseann Cui DO LAB BLOOD ORDERABLES Fin al Result Performing Organization Address City/[facility]/ZIP Co de Phone Number ROHAN CUEVAS ([place]) [address] [place] [address] * (ABNORMAL) Comprehensive metabolic panel (05/07/2025 5:13 AM CDT) Sodium 139 135 - 145 mmol/L Potassium, pl 3.9 3.3 - 4.9 mmol/L [facility] ([place]) Chloride 106 97 - 110 mmol/L [facility] ([place]) CO2 21(L) 22 - 32 mmol/L [facility] ([place]) Anion gap 11 2 - 15 mmol/L [facility] ([place]) BUN 19 6 - 25 mg/dL [facility] ([place]) Creatinine 0.81 0.80 - 1.30 mg/dL [...] Fin al Result [facility] ([place]) 1 [facility] [place] [address] * POCT glucose (05/07/2025 2:00 AM CDT) Glucose, POC 130 70 - 199 mg/dL Blood 05/07/2025 2:00 AM CDT 05/07/2025 2:00 AM CDT Roseann Ayla Fasick DO LAB POCT ORDERABLES - DE VICE Final Result ROHAN CUEVAS ([place]) 1 [facility] [place] [address] * POCT glucose (05/06/2025 7:53 PM CDT) Glucose, POC 108 70 - 199 mg/dL Blood 05/06/2025 7:53 PM CDT 05/06/2025 7:53 PM CDT us Roseann Cui DO LAB POCT ORDERABLES - DE VICE Final Result ROHAN CUEVAS ([place]) 1 [facility] [place] [address] * POCT glucose (05/06/2025 4:43 PM CDT) Glucose, POC 113 70 - 199 mg/dL Blood 05/06/2025 4:43 PM CDT 05/06/2025 4:43 PM CDT Roseann Cui DO LAB POCT ORDERABLES - DE VICE Final Result ROHAN CUEVAS ([place]) 1 [facility] [place] [address] * POCT glucose (05/06/2025 11:29 AM CDT) Glucose, POC 149 70 - 199 mg/dL Blood 05/06/2025 11:2 9 AM CDT 05/06/2025 11:29 AM CDT Roseann Cui DO LAB POCT ORDERABLES - DE VICE Final Result ROHAN CUEVAS ([place]) 1 [facility] [place] [address] * POCT glucose (05/06/2025 7:51 AM CDT) Pathologist [facility] Glucose, POC 117 70 - 199 mg/dL Blood 05/06/2025 7:51 AM CDT 05/06/2025 7:51 AM CDT Roseann Cui DO LAB POCT ORDERABLES - DE VICE Final Result ROHAN CUEVAS ([place]) 1 [facility] [employer] [address] * eGFR (05/06/2025 7:31 AM CDT) [facility] eGFR 87 >=60 mL/min/1. 73 m2 Comment: [...] Fin al Result ROHAN CUEVAS ([place]) 1 [facility] [place] [address] * (ABNORMAL) Differential, auto (05/06/2025 7:31 AM CDT) Pathologist [facility] Neutrophil abs 6.93(H) 1.50 - 6.50 K/cumm [...] Fin al Result [facility] ([place]) 1 [facility] [place] [address] * (ABNORMAL) CBC with auto differential (05/06/2025 [...] Fin al Result ROHAN CUEVAS ([place]) 1 [facility] [place] [address] * (ABNORMAL) Phosphorus (05/06/2025 7:31 AM CDT) Phosphorus, pl 2.2(L) 2.3 - 4.5 mg/dL Blood 05/06/2025 7:31 AM CDT 05/06/2025 8:17 AM CDT Roseann BaileyMacromill DO LAB BLOOD ORDERABLES Fin al Result Performing Organization Address City/[facility]/ZIP Co de Phone Number ROHAN CUEVAS ([place]) 1 [facility] [place] [address] * Magnesium (05/06/2025 7:31 AM CDT) Magnesium 1.8 1.4 - 2.5 mg/dL Blood 05/06/2025 7:31 AM CDT 05/06/2025 8:17 AM CDT Roseann Cui LAB BLOOD ORDERABLES Fin al Result Performing Organization Address [facility] de Phone Number ROHAN CUEVAS ([place]) 1 [facility] [place] [address] * (ABNORMAL) Comprehensive metabolic panel (05/06/2025 7:31 AM CDT) Sodium 137 135 - 145 mmol/L Potassium, pl 4.1 3.3 - 4.9 mmol/L [facility] ([place]) Chloride 106 97 - 110 mmol/L [facility] ([place]) CO2 23 22 - 32 mmol/L [facility] ([place]) Anion gap 7 2 - 15 mmol/L [facility] ([place]) BUN 20 6 - 25 mg/dL [facility] ([place]) Creatinine 0.87 0.80 - 1.30 [...] BLOOD ORDERABLES Fin al Result ROHAN CUEVAS ([place]) 1 [facility] [place] [address] * POCT glucose (05/06/2025 2:20 AM CDT) Glucose, POC 159 70 - 199 mg/dL Blood 05/06/2025 2:20 AM CDT 05/06/2025 2:20 AM CDT Supersonic DO LAB POCT ORDERABLES - DE VICE Final Result ROHAN CUEVAS ([place]) 1 [facility] [place] [address] * POCT glucose (05/05/2025 8:46 PM CDT) Glucose, POC 198 70 - 199 mg/dL Blood 05/05/2025 8:46 PM CDT 05/05/2025 8:46 PM CDT Roseann Cui DO LAB POCT ORDERABLES - DE VICE Final Result Performing Organization Address City/[facility]/ZIP Co de Phone Number ROHAN CUEVAS ([place]) 1 [place] [address] * (ABNORMAL) POCT glucose (05/05/2025 4:35 PM CDT) Glucose, POC 208(H) 70 - 199 mg/dL Blood 05/05/2025 4:35 PM CDT 05/05/2025 4:35 PM CDT Roseann Ayla Basilia ARANGO LAB POCT ORDERABLES - DE VICE Final Result Performing Organization Address [facility] de Phone Number ROHAN CUEVAS ([place]) 1 [facility] [place] [address] * (ABNORMAL) Sepsis Lactate w/ Reflex (05/05/2025 2:32 PM CDT) Sepsis Lactate 2.8(H) 0.7 - 2.0 mmol/L Blood 05/05/2025 2:32 PM CDT 05/05/2025 2:35 PM CDT Roseann Cui DO LAB BLOOD ORDERABLES Fin al Result Performing Organization Address City/[facility]/ZIP Co de Phone Number ROHAN CUEVAS ([place]) 1 [facility] [place] [address] * (ABNORMAL) Sepsis Lactate w/ Reflex (05/05/2025 11:55 AM CDT) Sepsis Lactate 2.2(H) 0.7 - 2.0 mmol/L Blood 05/05/2025 11:5 5 AM CDT 05/05/2025 12:00 PM CDT Roseann Ayla Fasick DO LAB BLOOD ORDERABLES Fin al Result ROHAN CUEVAS ([place]) 1 [facility] [place] [address] * (ABNORMAL) POCT glucose (05/05/2025 11:32 AM CDT) Glucose, POC 248(H) 70 - 199 mg/dL Blood 05/05/2025 11:3 2 AM CDT 05/05/2025 11:32 AM CDT Roseann BaileyMacromill DO LAB POCT ORDERABLES - DE VICE Final Result Performing Organization Address City/[facility]/ZIP Co de Phone Number ROHAN CUE[facility] ([place]) 1 [facility] [place] [address] * (ABNORMAL) Sepsis Lactate w/ Reflex (05/05/2025 8:56 AM CDT) Pathologist [facility] Sepsis Lactate 2.3(H) 0.7 - 2.0 mmol/L Blood 05/05/2025 8:56 AM CDT 05/05/2025 9:00 AM CDT Roseann Aguila COPsync DO LAB BLOOD ORDERABLES Fin al Result Performing Organization Address City/[facility]/ZIP Co de Phone Number ROHAN CUE[facility] ([place]) 1 [facility] [place] [address] * eGFR (05/05/2025 8:56 AM CDT) eGFR [...] 8:56 AM CDT 05/05/2025 9:00 AM CDT us Roseann Cui DO LAB BLOOD ORDERABLES Fin al Result ROHAN CUEAVS ([place]) 1 [facility] [place] [address] * (ABNORMAL) Differential, auto (05/05/2025 8:56 AM [...] 8:56 AM CDT 05/05/2025 9:00 AM CDT us Roseann Cui DO LAB BLOOD ORDERABLES Fin al Result [facility] ([place]) 1 [facility] [place], [place] [address] * (ABNORMAL) CBC with auto differential (05/05/2025 [...] NRBC abs 0.00 0.00 - 0.01 K/cumm [facility] ([place]) Blood 05/05/2025 8:56 AM CDT 05/05/2025 9:00 AM CDT Roseann Cui DO LAB BLOOD ORDERABLES Fin al Result Performing Organization Address City/[facility]/ZIP Co de Phone Number ROHAN CUEVAS ([place]) 1 [facility] [employer] [place] [address] * (ABNORMAL) Phosphorus (05/05/2025 8:56 AM CDT) Phosphorus, pl 2.2(L) 2.3 - 4.5 mg/dL Blood 05/05/2025 8:56 AM CDT 05/05/2025 9:00 AM CDT Roseann Cui DO LAB BLOOD ORDERABLES Fin al Result Performing Organization Address City/[facility] Co de Phone Number ROHAN CUEVAS ([place]) 1 [facility] [place] [address] * Magnesium (05/05/2025 8:56 AM CDT) Magnesium 1.9 1.4 - 2.5 mg/dL Blood 05/05/2025 8:56 AM CDT 05/05/2025 9:00 AM CDT Roseann Cui DO LAB BLOOD ORDERABLES Fin al Result ROHAN CUEVAS ([place]) 1 [facility] [place] [address] * (ABNORMAL) Comprehensive metabolic panel (05/05/2025 8:56 [...] Fin al Result ROHAN CUEVAS ([place]) 1 [facility] [place] [address] * POCT glucose (05/05/2025 7:32 AM CDT) Glucose, POC 151 70 - 199 mg/dL Blood 05/05/2025 7:32 AM CDT 05/05/2025 7:32 AM CDT us Roseann Cui DO LAB POCT ORDERABLES - DE VICE Final Result Performing Organization Address City/[facility]/ZIP Co de Phone Number ROHAN CUEVAS ([place]) 1 [facility] [place] [address] * POCT glucose (05/05/2025 2:11 AM CDT) Glucose, POC 177 70 - 199 mg/dL Blood 05/05/2025 2:11 AM CDT 05/05/2025 2:11 AM CDT us Chandni Pritchard MD LAB POCT ORDERABLES - DEVICE Final Result Performing Organization Address City/[facility]/ZIP Co de Phone Number [facility]AN [facility] ([place]) 1 [facility] [place] [address] * (ABNORMAL) POCT glucose (05/04/2025 8:06 PM CDT) Glucose, POC 210(H) 70 - 199 mg/dL Blood 05/04/2025 8:06 PM CDT 05/04/2025 8:06 PM CDT Chandni Pritchard MD LAB POCT ORDERABLES - DEVICE Final Result R[facility]AN CUE[facility] ([place]) 1 [facility] [place] [address] * POCT glucose (05/04/2025 4:32 PM CDT) Glucose, POC 195 70 - 199 mg/dL Blood 05/04/2025 4:32 PM CDT 05/04/2025 4:32 PM CDT Chandni Pritchard MD LAB POCT ORDERABLES - DEVICE Final Result ROHAN CUEVAS ([place]) 1 [facility] [place] [address] * Blood culture Blood (05/04/2025 12:40 PM CDT) Report Final Report: No growth Comment:Testing performed by : [facility], [address] [place] [address] Blood 05/04/2025 12:4 0 PM CDT 05/04/2025 [...] performance characteristics have been verified by the [facility]. For questions about this culture, contact the Microbiology Laboratory at [phone]. Interpretive data was last revised on 24. us Gibson Nolen MD LAB MICROBIOLOGY - GENERAL ORDERABLES Final Result Performing Organization Address [facility]/ZIP Co de Phone Number [facility] ([place]) [address] [place] [address] * (ABNORMAL) Lactate (05/04/2025 12:29 PM CDT) Lactate 4.1(C) 0.7 - 2.0 mmol/L Comment:Critical result call ed to and read back by Kennedy Youssef (RADIATOR SPECIALIST) on 05/04/2025 12:54:08 CDT to [id number]. Blood 05/04/2025 12:2 9 PM CDT 05/04/2025 12:49 PM CDT us Luca Sifuentes MD LAB BLOOD ORDERABLES Final Resu lt Performing Organization Address [facility] Co de Phone Number [facility] ([place]) 1 [facility] [place] [address] * Blood culture Blood (05/04/2025 12:29 PM CDT) Pathologist [facility] Report Final Report: No growth Comment:Testing performed by : [facility], [address] [place] [address] Blood 05/04/2025 12:2 9 PM CDT 05/04/2025 5:01 PM CDT Narrative [facility] ([place]) - 05/09/2025 7:00 AM CDT Collection->Peripheral 1. [...] performance characteristics have been verified by the [facility]. For questions about this culture, contact the Microbiology Laboratory at [phone]. Interpretive data was last revised on 24. Gibson Nolen MD LAB MICROBIOLOGY - GENERAL ORDERABLES Final Result Performing Organization Address City/[facility]/ZIP Co de Phone Number ROHAN C[facility] ([place]) 1 [facility] [place] [address] * POCT glucose (05/04/2025 11:14 AM CDT) Glucose, POC 199 70 - 199 mg/dL Blood 05/04/2025 11:1 4 AM CDT 05/04/2025 11:14 AM CDT Luca Sifuentes MD LAB POCT ORDERABLES - DEVICE Fi nal Result Performing Organization Address [facility] Co de Phone Number [facility] ([place]) 1 [facility] [employer] [address] * POCT glucose (05/04/2025 8:00 AM CDT) Glucose, POC 166 70 - 199 mg/dL Blood 05/04/2025 8:00 AM CDT 05/04/2025 8:00 AM CDT Luca Sifuentes MD LAB POCT ORDERABLES - DEVICE Fi nal Result Performing Organization Address City/[facility]/ZIP Co de Phone Number [facility] ([place]) 1 [facility] [employer] [place] [address] * POCT glucose (05/04/2025 5:21 AM CDT) Glucose, POC 195 70 - 199 mg/dL Blood 05/04/2025 5:21 AM CDT 05/04/2025 5:21 AM CDT us Luca Sifuentes MD LAB POCT ORDERABLES - DEVICE Fi nal Result Performing Organization Address City/[facility]/ZIP Co de Phone Number [facility] ([place]) 1 [facility] [place] [address] * eGFR (05/04/2025 3:04 AM CDT) eGFR [...] BLOOD ORDERABLES Final Resu lt [facility] ([place]) 1 [facility] [place] [address] * (ABNORMAL) Differential, auto (05/04/2025 3:04 AM [...] Neutrophil pct 91.0 % [facility] ([place]) Comment: Interpretive [...] MD LAB BLOOD ORDERABLES Final Resu lt [facility] ([place]) 1 [facility] [employer] [place] [address] * (ABNORMAL) CBC with auto differential (05/04/2025 [...] Final Resu lt [facility] ([place]) 1 [facility] [place] [address] * (ABNORMAL) Comprehensive metabolic panel (05/04/2025 3:04 [...] Final Resu lt [facility] ([place]) 1 [facility] [place] [address] * POCT glucose (05/04/2025 12:11 AM CDT) Glucose, POC 196 70 - 199 mg/dL Blood 05/04/2025 12:1 1 AM CDT 05/04/2025 12:11 AM CDT us Luca Sifuentes MD LAB POCT ORDERABLES - DEVICE Fi nal Result Performing Organization Address [facility] Co de Phone Number [facility] ([place]) 1 [facility] [place] [address] * Critical Care (05/03/2025 9:36 PM CDT) [...] plan with the ICU team and other medical/contamination consultant staff, making frequent assessments and decisions [...] spent time documenting in the medical record Gibson Nolen MD IN CLINIC/BEDSIDE ORDERABL ES Final Result * POCT glucose (05/03/2025 8:10 PM CDT) Glucose, POC 173 70 - 199 mg/dL Blood 05/03/2025 8:10 PM CDT 05/03/2025 8:10 PM CDT Luca Sifuentes MD LAB POCT ORDERABLES - DEVICE Fi nal Result ROHAN CUEVAS ([address] [place] [address] * POCT glucose (05/03/2025 5:54 PM CDT) Glucose, POC 179 70 - 199 mg/dL Blood 05/03/2025 5:54 PM CDT 05/03/2025 5:54 PM CDT Luca Sifuentes MD LAB POCT ORDERABLES - DEVICE Fi nal Result Performing Organization Address City/[facility]/ZIP Co de Phone Number ROHAN [address] [place] [address] * Infection Prevention MRSA Only (Staphylococcus aureus) PCR Nasal (05/03/2025 4:27 PM CDT) PCR Scrn, Methicillin resistant Staphylococcus aureus (MRSA) Not Detected Not Detected Comment: Interpretive Data Testing performed using Nucleic Acid Amplification with the Nanoflex Xpert MRSA NxG Assay. This assay detects target DNA from mecA, mecC and the SCCmec insertion site of Staphylococcus aureus using Real-Time PCR and has been cleared by the FDA. Performance characteristics have been verified by the [facility]. Current Interpretive Data was last revised on 2023 Nasal 05/03/2025 4:27 PM CDT 05/03/2025 4:30 PM CDT us Luca Sifuentes MD LAB MICROBIOLOGY - GENERAL ORDSteven [place] Final Result ROHAN CUEV[facility] ([place]) 1 [facility] [place] [address] * (ABNORMAL) Troponin T high-sensitivity 6-hour (05/03/2025 3:34 PM CDT) Trop T hs 31(H) <=22 ng/L Comment: Interpretive Data For further hscTnT resources including the diagnostic algorithm and an aid in interpretation, copy and paste this link: https://nrl.testcatalog.org/show/hsTrop Current Interpretive Data last revised 2020. Trop T hs delta 9 ng/L [facility] ([place]) Trop T hs interp Equivocal CER N[facility] ([place]) Blood 05/03/2025 3:34 PM CDT 05/03/2025 3:38 PM CDT us Bob Albert MD LAB BLOOD ORDERABLES Final Result Performing Organization Address City/[facility]/ZIP Co de Phone Number ROHAN CUEVAS ([place]) 1 [facility] [place] [address] * (ABNORMAL) Sepsis Lactate w/ Reflex (05/03/2025 3:34 PM CDT) Sepsis Lactate 4.2(C) 0.7 - 2.0 mmol/L Comment:Critical called to Catherine De Leon RN ICU with read back at 05/03/2025 15:43:44 CDT by Ariadne Jensen Blood 05/03/2025 3:34 PM CDT 05/03/2025 3:38 PM CDT us Bob Albert MD LAB BLOOD ORDERABLES Final Result ROHAN CUEVAS ([place]) 1 [facility] [place] [address] * POCT glucose (05/03/2025 2:11 PM CDT) [facility] Glucose, POC 104 70 - 199 mg/dL Blood 05/03/2025 2:11 PM CDT 05/03/2025 2:11 PM CDT us Luca Sifuentes MD LAB POCT ORDERABLES - DEVICE Fi nal Result ROHAN CUEVAS ([place]) 1 [facility] [place] [address] * (ABNORMAL) Troponin T high-sensitivity 4-hour (05/03/2025 1:12 PM CDT) [facility] Trop T hs 36(H) <=22 ng/L Comment: Interpretive Data For further hscTnT resources including the diagnostic algorithm and an aid in interpretation, copy and paste this link: https://nrl.testcatalog.org/show/hsTrop Current Interpretive Data last revised 2020. Trop T hs delta 14(C) ng/L [facility] ([place]) Comment:Critical Result call ed by [email or web address] at 2025-05-03 13:43:16. Result Read Back by Ash De Leon RN ICU Trop T hs interp Significa nt(C) [facility] ([place]) Comment:Critical Result call ed by [email or web address] at 2025-05-03 13:43:16. Result Read Back by Ash De Leon RN ICU Blood 05/03/2025 1:12 PM CDT 05/03/2025 1:13 PM CDT us Bob Albert MD LAB BLOOD ORDERABLES Final Result ROHAN CUEVAS ([place]) 1 [facility] [place] [address] * Thyroid Function Wirt (05/03/2025 1:12 PM CDT) [facility] TSH 2.82 0.30 - 4.20 mcIUnit/mL Blood 05/03/2025 1:12 PM CDT 05/03/2025 2:21 PM CDT Luca Sifuentes MD LAB BLOOD ORDERABLES Final Resu lt Performing Organization Address [facility]/ZIP Co de Phone Number ROHAN CUEVAS ([place]) 1 [place] [address] * (ABNORMAL) Cortisol (05/03/2025 1:12 PM CDT) Cortisol 74.6(H) 4.8 - 19.5 mcg/dl Comment: Interpretive Data Normal Range: 4.8 - 19.5 mcg/dL; Evening: Half of morning value. This analyte undergoes marked diurnal variation. Ranges indicated apply to morning specimens. Current interpretive data was last revised 2018. Testing performed by: [facility], [address] [place] [address], [address] Blood 05/03/2025 1:12 PM CDT 05/04/2025 9:09 AM CDT Luca Sifuentes MD LAB BLOOD ORDERABLES Final Resu lt Performing Organization Address [facility] Co de Phone Number ROHAN CUEVAS ([place]) 1 [facility] [place] [address] * (ABNORMAL) Sepsis Lactate w/ Reflex (05/03/2025 12:38 PM CDT) Sepsis Lactate 3.2(H) 0.7 - 2.0 mmol/L Blood 05/03/2025 12:3 8 PM CDT 05/03/2025 12:42 PM CDT Bob Albert MD LAB BLOOD ORDERABLES Final Result Performing Organization Address City/[facility] Co de Phone Number [facility] ([place]) 1 [facility] [place] [address] * (ABNORMAL) Troponin T high-sensitivity 2-hour (05/03/2025 10:58 AM CDT) Trop T hs 33(H) <=22 ng/L Comment: Interpretive Data For further hscTnT resources including the diagnostic algorithm and an aid in interpretation, copy and paste this link: https://nrl.testcatalog.org/show/hsTrop Current Interpretive Data last revised 2020. Trop T hs delta 11(C) ng/L CERN ER [facility] ([place]) Comment:Critical Result call ed by [email or web address] at 2025-05-03 11:28:36. Result Read Back by Nataliya Ibarra RN ER Trop T hs interp Significa nt(C) ROHAN CUEV[facility] ([place]) Comment:Critical Result call ed by [email or web address] at 2025-05-03 11:28:36. Result Read Back by Nataliya Ibarra RN ER Blood 05/03/2025 10:5 8 AM CDT 05/03/2025 11:01 AM CDT Bob Albert MD LAB BLOOD ORDERABLES Final Result ROHAN CUEVAS ([place]) 1 [facility] [place] [address] * (ABNORMAL) Urinalysis reflex to microscopic and culture Urine (05/03/2025 10:46 AM CDT) Color, ur Yellow Yellow Clarity, ur Clear Clear ROHAN Haynes ([place]) Specific gravity, ur 1.015 1.003 - 1.030 ROHAN CUEVAS ([place]) pH, urine 6.5 ROHAN CUEVAS ([place]) Comment: Interpretive Data U rine pH is affected by diet, medications, systemic acid-base disturbances, and renal tubular function. pH may affect urinary stone formation. For example, urine pH below 6.0 may help reduce the tendency for calcium phosphate stones and pH greater than 6.0 may reduce the tendency for uric acid stone formation. Source: [facility] Current Interpretive Data was last revised on 2017 Protein, ur ql Negative Negative [facility]NE R [facility] ([place]) Glucose, ur ql Negative Negative [facility] ([place]) Ketones, ur Negative Negative CERNER A ([place]) Bilirubin, ur Negative Negative CERNER [facility] ([place]) Blood, ur Negative Negative [facility] ([place]) Urobilinogen, ur 2.0(A) <2.0 mg/dL C[facility]ER [facility] ([place]) Nitrite, ur Negative Negative CERNER A ([place]) Leukocyte esterase, ur Negative Negative C[facility]ER [facility] ([place]) UA reflex comment Reflex conditions for microscopic UA and culture not met. [facility] ([place]) Urine 05/03/2025 10:4 6 AM CDT 05/03/2025 10:52 AM CDT us Bob Albert MD LAB MICROBIOLOGY - GENERAL ORDERABLES Final Result [facility] ([place]) 1 [facility] [place] [address] * CT Chest Abdomen Pelvis WO Contrast (05/03/2025 10:24 AM CDT) Anatomical Region Laterality Modality Body N/A Computed Tomogra phy 05/03/2025 10:3 0 AM CDT Narrative 05/03/2025 10:48 AM CDT EXAM DESCRIPTION: CT CHEST ABDOMEN PELVIS WO CONTRAST REASON FOR STUDY: sepsis Patient arrives via [facility] from home for evaluation [...] signed by Jose Eduardo Ball M.D. MZ: MZ Report ID: [id number] Reading Location: [id number] Procedure Note Jose Eduardo Ball MD - 05/03/2025 EXAM DESCRIPTION: CT CHEST ABDOMEN PELVIS WO CONTRAST REASON FOR STUDY: sepsis Patient arrives via [facility] from home for evaluation [...] Eduardo Ball M.D. MZ: EULALIA Report ID: [id number] Reading Location: [place] [address] us Bob Albert MD IMG CT PROCEDURES Final Res ult * CT Head WO Contrast (05/03/2025 10:24 AM CDT) Anatomical Region Laterality Modality Head and Neck N/A Computed Tomogra phy 05/03/2025 10:2 9 AM CDT Narrative 05/03/2025 10:32 AM CDT EXAM DESCRIPTION: CT HEAD WO CONTRAST REASON FOR STUDY: Headache, no red flags Patient arrives via [facility] from home for evaluation [...] Sebas Rincon M.D. MM: MM Report ID: [id number] Reading Location: [id number] Procedure Note Sebas Rincon MD - 05/03/2025 EXAM DESCRIPTION: CT HEAD WO CONTRAST REASON FOR STUDY: Headache, no red flags Patient arrives via [facility] from home for evaluation [...] Sebas Rincon M.D. MM: MM Report ID: [id number] Reading Location: [place] [address] us Bob Albert MD IMG CT PROCEDURES Final Res ult * ECG 12 lead (05/03/2025 9:25 AM CDT) 05/03/2025 9:25 AM CDT Narrative [facility] - 05/04/2025 8:51 AM CDT Vent Rate: 120 bpm RR Interval: 498 msec NV Interval: 104 msec QRS Duration: 98 msec QT Interval: 308 msec QTC Interval: 379 msec P-R-T [place]: 2 - -11 - -1 degrees IMPRESSION: SINUS TACHYCARDIA WITH SHORT NV INTERVAL POSSIBLE INFERIOR MYOCARDIAL INFARCTION , OF INDETERMINATE AGE [30 ms Q WAVE IN II/aVF] Compared to prior EKG heart rate increased Electronically Signed By: Bernard Martinez MD [facility] Bob Albert MD ECG ORDERABLES Final Resul t [facility] [employer] [facility] * Blood culture Blood (05/03/2025 9:22 AM CDT) Report Final Report: No growth Comment:Testing performed by : [facility], 1 [facility], [place]., [address] Blood 05/03/2025 9:22 AM CDT 05/03/2025 11:56 [...] performance characteristics have been verified by the [facility]. For questions about this culture, contact the Microbiology Laboratory at [phone]. Interpretive data was last revised on 24. Bob Albert MD LAB MICROBIOLOGY - GENERAL ORDERABLES Final Result ROHAN CUEVAS ([place]) 1 [facility] [place] [address] * (ABNORMAL) Blood culture Blood (05/03/2025 9:11 AM CDT) Direct Specimen Exam Stain: Gram Positive Cocci in pairs and chains Time to culture positivity (aerobic media): 8.4 hours Time to culture positivity (anaerobic media): 8.4 hours Notification of: Gram Positive Cocci in pairs and chains called to and read back by: Maria Esther Gross MLS [id number] on 05/03/2025 21:07:53 by: Gibson Middleton MT Test result called to and read back by iglesia strickland on 05/04/2025 00:20:41 by maria esther gross Comment:Testing performed by : [facility], [address] [place]., [address] Direct Specimen Exam Molecular Analysis: Streptococcus species detected by [facility] BCID-GP panel. This test does not exclude the possibility of a mixed bacterial infection. Notification of: Streptococcus species called to and read back by: Maria Esther Gross.[facility] [phone] on 05/03/2025 23:00:48 by: Veronica Nieves.S ROHAN CUEVAS ([place]) Comment:Testing performed by : [facility], [address] [place]., [address] Report Final Report: Streptococcus dysgalactiae (.) ROHAN CUEVAS ([place]) Comment:Testing performed by : [facility], [address] [place]., [address] Organism STREPTOCOCCUS DYSGALACTIAE ROHAN CUEVAS ([place]) Blood [...] performance characteristics have been verified by the [facility]. For questions about this culture, contact the Microbiology Laboratory at [phone]. Interpretive data was last revised on 24. [...] - GENERAL ORDERABLES Final Result ROHAN CUEVAS ([place]) 1 [facility] [place] [address] * Troponin T high-sensitivity series (baseline, 2hr, 4hr, 6hr) (05/03/2025 9:10 AM CDT) [facility] Trop T hs 22 <=22 ng/L Comment: Interpretive Data For further hscTnT resources including the diagnostic algorithm and an aid in interpretation, copy and paste this link: https://nrl.testcatalog.org/show/hsTrop Current Interpretive Data last revised 2020. Blood 05/03/2025 9:10 AM CDT 05/03/2025 9:16 AM CDT Bob Albert MD LAB BLOOD ORDERABLES Final Result ROHAN CUEVAS ([place]) 1 [facility] [place] [address] * (ABNORMAL) Sepsis Lactate w/ Reflex (05/03/2025 9:10 AM CDT) [facility] Sepsis Lactate 4.0(C) 0.7 - 2.0 mmol/L Comment:Critical Natlaiya Pawan Ibarra N called to ER with read back at 05/03/2025 09:24:58 CDT by Ariadne Jensen Blood 05/03/2025 9:10 AM CDT 05/03/2025 9:16 AM CDT Bob Albert MD LAB BLOOD ORDERABLES Final Result ROHAN CUEVAS ([place]) 1 [facility] [place] [address] * eGFR (05/03/2025 9:10 AM CDT) eGFR [...] LAB BLOOD ORDERABLES Final Result ROHAN CUEVAS ([place]) 1 [facility] [place] [address] * (ABNORMAL) Differential, auto (05/03/2025 9:10 AM [...] ORDERABLES Final Result [facility] ([place]) 1 [facility] [employer] [place] [address] * (ABNORMAL) CBC with auto differential (05/03/2025 [...] ORDERABLES Final Result ROHAN CUEVAS ([place]) 1 [facility] [place] [place] [address] * (ABNORMAL) CRP (acute phase) (05/03/2025 9:10 AM CDT) CRP 19.8(H) <=10.0 mg/L Blood 05/03/2025 9:10 AM CDT 05/03/2025 9:32 AM CDT Bob Albert MD LAB BLOOD ORDERABLES Final Result ROHAN CUEVAS ([place]) 1 [facility] [place] [address] * Magnesium (05/03/2025 9:10 AM CDT) Magnesium 1.5 1.4 - 2.5 mg/dL Blood 05/03/2025 9:10 AM CDT 05/03/2025 9:32 AM CDT Bob Albert MD LAB BLOOD ORDERABLES Final Result Performing Organization Address City/[facility] Co de Phone Number ROHAN CUEVAS ([place]) 1 [facility] [place] [address] * (ABNORMAL) Comprehensive metabolic panel (05/03/2025 9:10 AM CDT) Sodium 138 135 - 145 mmol/L Potassium, pl 3.6 3.3 - 4.9 mmol/L [facility] ([place]) Chloride 100 97 - 110 mmol/L [facility] ([place]) CO2 25 22 - 32 mmol/L [facility] ([place]) Anion gap 13 2 - 15 mmol/L [facility] ([place]) BUN 14 6 - 25 mg/dL [facility] ([place]) Creatinine 0.77(L) 0.80 [...] ORDERABLES Final Result [facility] ([place]) 1 [facility] [place], [place] [id number] * Diabetic Eye Exam (10/13/2024 2:06 PM CYBER ANALYST) Historical Provider HEALTH MAINTENANCE Edited Result - [...] data last revised 22. Testing performed by: [facility], [address] [place] [address], [place]., [address] Blood 09/09/2024 10:0 7 AM CDT 09/09/2024 5:39 PM CDT us Mahesh Llamas MD LAB BLOOD ORDERABLES Sally shankar Result CORRINAMARY CUEVAS ([place]) 1 [facility] [place] [address] * Lipid panel (09/09/2024 10:07 AM CDT) [...] last revised on 2018. Testing performed by: [facility], [address] [place] [address]., [address] Triglycerides 63 <=149 mg/dL ROHAN CUEVAS ([place]) [...] last revised on 2018. Testing performed by: [facility], [address] [place] [address]., [address] HDL 43 >=40 mg/dL ROHAN Arriaza ([place]) [...] last revised on 2018. Testing performed by: [facility], [address] [place] [address]., [address] LDL, calculated 39 <=129 mg/dL ROHAN CUEVAS [...] last revised on 2024. Testing performed by: [facility], [address] [place] [address]., [address] Non-HDL Cholesterol 53 mg/dL ROHAN CUEVAS ([place]) [...] last revised on 2018. Testing performed by: [facility], [address] [place] [address]., [address] Chol/HDL ratio 2 CERNE Pawan CUEVAS ([place]) Comment:Testing performed by : [facility], [address] [place] [address]., [address] Blood 09/09/2024 10:0 7 AM CDT 09/09/2024 5:39 PM CDT us Mahesh Llamas MD LAB BLOOD ORDERABLES Sally l Result ROHAN CUEVAS ([place]) 1 [facility] [place] [address] * Albumin Creatinine Ratio, Urine (01/10/2024 8:58 AM CYBER ANALYST) Albumin Ur <12.0 mg/L ROHAN [facility] ([place]) Comment: Interpretive Data No reference range established. Current interpretive data was last revised 2019. Testing performed by: [facility], [address] [place] [address]., [address] Creatinine Ur 124.5 mg/dL ROHAN CUEVAS ([place]) Comment: Interpretive Data No reference range established. Current interpretive data was last revised 2019. Testing performed by: [facility], [address] [place] [address]., [address] Albumin Creatinine Ratio, Ur <10 1 - 29 mg/g ROHAN CUEVAS ([place]) Comment:Testing performed by : [facility], [address] [place] [address]., [address] Urine 01/10/2024 8:58 AM CYBER ANALYST 01/10/2024 11:37 AM CYBER ANALYST Narrative ROHAN CUEVAS ([place]) - 01/10/2024 1:44 PM CYBER ANALYST fasting us Hakan Mccormick MD LAB URINE ORDERABLES Final R esult ROHAN CUEVAS ([place]) 1 [facility] [place] [address] * DIABETES FOOT EXAM (01/25/2017) Diabetic Foot Exam Unknown Historical Provider HEALTH MAINTENANCE Final Result * COLONOSCOPY IMAGES (01/15/2015) Anatomical Region Laterality Modality Other Narrative 01/15/2015 Ordered by an unspecified provider. Historical Provider GI PROCEDURE ORDERABLES F inal Result from Last 3 Months or Most Recently Relevant to Health Maintenance Insurance MEDICARE [facility] MEDICARE [facility] MEDICARE [facility] Advance Directives For more information, please contact: [phone] Documents on File Type Date Recorded Patient Consumer Services Advisor Expl anation ADVANCE DIRECTIVE 05/11/2025 11:04 AM Geetha ng Will ADVANCE DIRECTIVE 05/11/2025 11:04 AM Raymon r of Equipment Engineering Technician-Medical * LIMITED - No CPR (Latest Code [...] 3:46 PM 03/06/2024 5:39 PM Care Teams Corporate Training Manager Relationship Specialty Start Date End Date Mahesh Llamas MD [address] [place] [address] PCP - General Family Medicine 06/12/24 Maria Esther Montemayor, OT Occupational Therapist Occupational Therapy 09/21/22
--- OUTSIDE RECORDS SUMMARY | 2025-07-01 10:09 | XMS_ITS | Encounter Summary ---
Author Organization [facility] Address [facility] [place] [address] Care Team Providers Care Cardiopulmonary Supervisor Name Role Phone Hakan Mccormick MD Primary Care Provider [phone] Encounter Details Date Type Department Care Team (Late Contact Info) Description 08/09/2023 Lab Requisition [facility] Lab [address] [facility] [place] [address] Gabriela Saunders MD [address] [place] [address] Social History Tobacco Use Types Packs/Day Years Used Date Smoking Tobacco: Never Smokeless Tobacco: Never Alcohol Use Standard Drinks/Week Comments No 0 (1 standard drink = 0.6 oz pur e alcohol) Sex and Gender Information Value Date Recorded Sex Assigned at Not on file Legal Sex Male 5:25 PM OPTICS MANUFACTURING TECHNICIAN Gender Identity Not on file Sexual Orientation Not on file documented as of this encounter Plan of Treatment Upcoming Encounters Date Type Department Care Team (Late Contact Info) Description 09/17/2025 2:00 PM OPTICS MANUFACTURING TECHNICIAN Office Visit [facility] - Pulmonology [address] [facility] [place] [phone] Michoacano Rodriguez MD [address] [place] [address] documented as of this encounter Procedures Procedure Name Priority Date/Time Associated Diagnosis Comments DERMATOPATHOLOGY Routine 08/09/2023 3:49 PM CDT documented in this encounter Results * DERMATOPATHOLOGY (08/09/2023 3:49 PM CDT) Case Report Dermatopathology Report Case: [id number] Authorizing Provider: Gabriela Saunders MD Collected: 08/09/2023 03:49 PM Ordering Location: [facility] Received: 08/10/2023 04:07 PM Pathologist: Helen Vazquez MD Specimen: Skin, left forearm 12:39 PM CDT DERMATOPATHOLOGY LABORATORY Final Diagnosis Specimen A. 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 Check Margins. 12:39 PM CDT DERMATOPATHOLOGY LABORATORY Gross Description Specimen A: Received is one formalin filled container labeled with the patient's name and designated left forearm. The specimen consists of a non-oriented ellipse of skin measuring 03u11m3 mm. The epidermal surface is unremarkable. The margin is inked green. The 12 o'clock and 6 o'clock tips are submitted in cassette 1. The remainder of the ellipse is serially sectioned and submitted in cassette 2-4. Jar 0. 12:39 PM CDT DERMATOPATHOLOGY LABORATORY Microscopic Description Specimen [...] are oriented perpendicular to the skin surface. 3 12:39 PM CDT DERMATOPATHOLOGY LABORATORY Disclaimer An external and internal positive and negative controls are appropriate for the histochemical, immunohistochemical and immunofluorescence stain(s) in this case (if any), except where stated explicitly. The performance characteristics of the stain(s) cited in this report were developed and its performance characteristic determined by the Dermatopathology Laboratory at [facility], directed by Dr. Bridget Damon. These tests need not be, and therefore are not, approved by the [place] Food and Drug Administration. The tests are used for clinical purposes. Billing Codes Specimen Charges Stain Charges 00838 1 3 12:39 PM CDT DERMATOPATHOLOGY LABORATORY Embedded Images 3 12:39 PM CDT DERMATOPATHOLOGY LABORATORY Pathology/Cytolo gy TISSUE SPECIMEN FROM SKIN / Unknown 08/09/2023 3:49 PM CDT 08/10/2023 4:07 PM CDT Gabriela Saunders MD LAB - PATHOLOGY/CYTOLOGY ORD ERABLES Final Result DERMATOPATHOLOGY LABORATORY [facility] - Department of Dermatology [facility] Medicine [address] [place] [address], [address] [phone] documented in this encounter Visit Diagnoses Not on filedocumented in this encounter Care Teams Cardiopulmonary Supervisor Relationship Specialty Start Date End Date Hakan Mccormick MD PCP - General 04/24/11 documented as of this encounter
--- OUTSIDE RECORDS SUMMARY | 2025-07-01 10:09 | XMS_ITS | Clinical Summary ---
Author Organization [facility] Address [address] [place] [address] Phone Care Team Providers Care Car Salesperson Name Role Phone Hakan Mccormick MD Primary Care Provider [phone] Social History Tobacco Use Types Packs/Day Years [...] age to complete this topic Insurance MEDICARE [facility] Care Teams Car Salesperson Relationship Specialty Start Date End Date Hakan Mccormick MD PCP - General Internal Medicine 07/29/19
--- OUTSIDE RECORDS SUMMARY | 2025-07-01 10:09 | XMS_ITS | Encounter Summary ---
Author Organization [facility] Address [facility] [place] [address] Care Team Providers Care Lead Systems Engineer Name Role Phone Hakan Mccormick MD Primary Care Provider [phone] Encounter Details Date Type Department Care Team (Late Contact Info) Description 07/02/2023 Lab Requisition [facility] - DermPath Lab [address] [place] [phone] Tete Baez MD [address] [place] [address] Social History Tobacco Use Types Packs/Day Years Used Date Smoking Tobacco: Never Smokeless Tobacco: Never Alcohol Use Standard Drinks/Week Comments No 0 (1 standard drink = 0.6 oz pur e alcohol) Sex and Gender Information Value Date Recorded Sex Assigned at Not on file Legal Sex Male 5:25 PM EMPLOYEE SERVICE OFFICER Gender Identity Not on file Sexual Orientation Not on file documented as of this encounter Plan of Treatment Upcoming Encounters Date Type Department Care Team (Late Contact Info) Description 09/17/2025 2:00 PM EMPLOYEE SERVICE OFFICER Office Visit [facility] - Pulmonology [address] [place] [address] Michoacano Rodriguez MD [address] [place] [address] documented as of this encounter Procedures Procedure Name Priority Date/Time Associated Diagnosis Comments DERMATOPATHOLOGY Routine 07/02/2023 11:4 5 AM CDT documented in this encounter Results * DERMATOPATHOLOGY (07/02/2023 11:45 AM CDT) Case Report Dermatopathology Report Case: [id number] Authorizing Provider: Tete Baez MD Collected: 07/02/2023 11:45 AM Ordering Location: [facility] DermPath Lab Received: 07/02/2023 04:25 PM Pathologist: Lili Ellsworth MD Specimen: Skin, mid crown 4:44 PM CDT DERMATOPATHOLOGY LABORATORY Final Diagnosis Specimen A. SKIN, mid crown: SQUAMOUS CELL CARCINOMA, MODERATELY DIFFERENTIATED (C44.42) 4:44 PM CDT DERMATOPATHOLOGY LABORATORY at 1644 CDT Clinical History R/O SCC 4:44 PM CDT DERMATOPATHOLOGY LABORATORY Gross Description Specimen A: Received is one formalin filled container labeled with the patient's name and designated mid crown. The specimen consists of a shave biopsy measuring 10x8x1 mm. Jar 0. 4:44 PM CDT DERMATOPATHOLOGY LABORATORY Microscopic Description [...] characteristic determined by the Dermatopathology Laboratory at [facility], directed by Dr. Bridget Damon. These tests need not be, and therefore are not, approved by the [place] Food and Drug Administration. The tests are used for clinical purposes. Billing Codes Specimen Charges Stain Charges 29217 1 3 4:44 PM CDT DERMATOPATHOLOGY LABORATORY Embedded Images 08/23/202 3 4:44 PM CDT DERMATOPATHOLOGY LABORATORY Pathology/Cytolo gy TISSUE SPECIMEN FROM SKIN / Unknown 07/02/2023 11:45 AM CDT 07/02/2023 4:25 PM CDT us Tete Baez MD LAB - PATHOLOGY/CYTOLOGY ORDERA BLES Final Result DERMATOPATHOLOGY LABORATORY [facility] - Department of Dermatology [facility] Medicine [address] [place] [address], [address] [phone] documented in this encounter Visit Diagnoses Not on filedocumented in this encounter Care Teams Lead Systems Engineer Relationship Specialty Start Date End Date Hakan Mccormick MD PCP - General 04/24/11 documented as of this encounter
--- OUTSIDE RECORDS SUMMARY | 2025-07-01 10:09 | XMS_ITS | Encounter Summary ---
Author Organization [facility] Address [facility] [place] [address] Care Team Providers Care Marine Cargo Inspector Name Role Phone Hakan Mccormick MD Primary Care Provider [phone] Encounter Details Date Type Department Care Team (Late Contact Info) Description 05/23/2023 Lab Requisition [facility] Derm[facility] Lab [address] [facility] [place] [place] [address] Gabriela Saunders MD [address] [place] [address] Social History Tobacco Use Types Packs/Day Years Used Date Smoking Tobacco: Never Smokeless Tobacco: Never Alcohol Use Standard Drinks/Week Comments No 0 (1 standard drink = 0.6 oz pur e alcohol) Sex and Gender Information Value Date Recorded Sex Assigned at Not on file Legal Sex Male 5:25 PM TAX COMMISSIONER Gender Identity Not on file Sexual Orientation Not on file documented as of this encounter Plan of Treatment Upcoming Encounters Date Type Department Care Team (Late Contact Info) Description 09/17/2025 2:00 PM TAX COMMISSIONER Office Visit [facility] - Pulmonology [address] [facility] [place] [place] [phone] Michoacano Rodriguez MD [address] [place] [address] documented as of this encounter Procedures Procedure Name Priority Date/Time Associated Diagnosis Comments DERMATOPATHOLOGY Routine 05/23/2023 8:31 AM CDT documented in this encounter Results * DERMATOPATHOLOGY (05/23/2023 8:31 AM CDT) Case Report Dermatopathology Report Case: [id number] Authorizing Provider: Gabriela Saunders MD Collected: 05/23/2023 08:31 AM Ordering Location: [facility] DermPath Lab Received: 05/24/2023 10:57 AM Pathologist: Helen Vazquez MD Specimens: A) - Skin, left anti helix B) - Skin, crown C) - Skin, right crown anter D) - Skin, right crown post E) - Skin, right helix 3 2:36 PM CDT DERMATOPATHOLOGY LABORATORY Final Diagnosis [...] helix: BASAL CELL CARCINOMA, NODULAR TYPE (C44.212) 3 2:36 PM CDT DERMATOPATHOLOGY LABORATORY at 1436 CDT Clinical History A-B: R/O BCC C-D: R/O SCC 3 2:36 PM CDT DERMATOPATHOLOGY LABORATORY Gross Description Specimen A: Received is one formalin filled container labeled with the patient's name and designated left anti helix. The specimen consists of a shave biopsy measuring 7x6x2 mm. Jar 0. Specimen B: Received is one formalin filled container labeled with the patient's name and designated crown. The specimen consists of a shave biopsy measuring 51w78z10 mm. The specimen was serially sectioned and [...] 5x5x1 mm. Jar 0. 3 2:36 PM [facility] DERMATOPATHOLOGY LABORATORY Microscopic Description Specimen A. SKIN, [...] ratio and peripheral palisading. 3 2:36 PM T DERMATOPATHOLOGY LABORATORY Disclaimer An external and internal positive and negative controls are appropriate for the histochemical, immunohistochemical and immunofluorescence stain(s) in this case (if any), except where stated explicitly. The performance characteristics of the stain(s) cited in this report were developed and its performance characteristic determined by the Dermatopathology Laboratory at [facility], directed by Dr. Bridget Damon. These tests need not be, and therefore are not, approved by the [place] Food and Drug Administration. The tests are used for clinical purposes. Billing Codes Specimen Charges Stain Charges 78409 45983 81917 40014 38295 1 1 1 1 1 3 2:36 PM T DERMATOPATHOLOGY LABORATORY Embedded Images 3 2:36 PM T DERMATOPATHOLOGY LABORATORY Pathology/Cytology TISSUE SPECIMEN FROM SKIN [...] PATHOLOGY/CYTOLOGY ORD ERABLES Final Result DERMATOPATHOLOGY LABORATORY [facility] - Department of Dermatology [facility] Specialized Medicine [address] [place] [address], [address] [phone] documented in this encounter Visit Diagnoses Not on filedocumented in this encounter Care Teams Marine Cargo Inspector Relationship Specialty Start Date End Date Hakan Mccormick MD PCP - General 04/24/11 documented as of this encounter
--- OUTSIDE RECORDS SUMMARY | 2025-07-01 10:09 | XMS_ITS | Encounter Summary ---
Author Organization [facility] Address [facility] [facility] [place] [address] Care Team Providers Care Nurse Leader Name Role Phone Hakan Mccormick MD Primary Care Provider [phone] Encounter Details Date Type Department Care Team (Late Contact Info) Description 07/19/2023 Lab Requisition [facility] D[facility] Lab [address] [facility] [place] [address] Gabriela Saunders MD [address] [facility] [address] Social History Tobacco Use Types Packs/Day Years Used Date Smoking Tobacco: Never Smokeless Tobacco: Never Alcohol Use Standard Drinks/Week Comments No 0 (1 standard drink = 0.6 oz pur e alcohol) Sex and Gender Information Value Date Recorded Sex Assigned at Not on file 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 Gender Identity Not on file Sexual Orientation Not on file documented as of this encounter Plan of Treatment Upcoming Encounters Date Type Department Care Team (Late Contact Info) Description 09/17/2025 2: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 Office Visit [facility] - Pulmonology [address] [facility] [place] [phone] Michoacano Rodriguez MD [address] [place] [address] documented as of this encounter Procedures Procedure Name Priority Date/Time Associated Diagnosis Comments DERMATOPATHOLOGY Routine 07/19/2023 11:2 8 AM CDT documented in this encounter Results * DERMATOPATHOLOGY (07/19/2023 11:28 AM CDT) Case Report Dermatopathology Report Case: [id number] Authorizing Provider: Gabriela Saunders MD Collected: 07/19/2023 11:28 AM Ordering Location: [facility] DermPath Lab Received: 07/22/2023 12:18 PM Pathologist: Helen Vazquez MD Specimens: A) - Skin, left forearm B) - Skin, right medal forearm 3:40 PM CDT DERMATOPATHOLOGY LABORATORY Final Diagnosis Specimen A. 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 3 3:40 PM CDT DERMATOPATHOLOGY LABORATORY Disclaimer An external and internal positive and negative controls are appropriate for the histochemical, immunohistochemical and immunofluorescence stain(s) in this case (if any), except where stated explicitly. The performance characteristics of the stain(s) cited in this report were developed and its performance characteristic determined by the Dermatopathology Laboratory at [facility], directed by Dr. Bridget Damon. These tests need not be, and therefore are not, approved by the [place] Food and Drug Administration. The tests are used for clinical purposes. Billing Codes Specimen Charges Stain Charges 57089 12399 1 1 3 3:40 PM CDT DERMATOPATHOLOGY LABORATORY Embedded Images 3 3:40 PM CDT DERMATOPATHOLOGY LABORATORY Pathology/Cytology TISSUE SPECIMEN FROM SKIN / Unknown 07/19/2023 11:28 AM CDT 07/22/2023 12:18 PM CDT Miscellaneous samples (specimen) TISSUE SPECIMEN FROM SKIN / Unknown 07/19/2023 11:28 AM CDT 07/22/2023 12:18 PM CDT Gabriela Saunders MD LAB - PATHOLOGY/CYTOLOGY ORD ERABLES Final Result DERMATOPATHOLOGY LABORATORY [facility] - Department of Dermatology [facility] Medicine [address] [place] [address], [address] [phone] documented in this encounter Visit Diagnoses Not on filedocumented in this encounter Care Teams Nurse Leader Relationship Specialty Start Date End Date Hakan Mccormick MD PCP - General 04/24/11 documented as of this encounter
--- OUTSIDE RECORDS SUMMARY | 2025-07-01 10:09 | XMS_ITS | Clinical Summary ---
Author Organization [facility] Address [address] [place] [address] Phone Care Team Providers Care Food Safety Specialist Name Role Phone Unavailable Primary Care Provider Unavailabl e Allergies Active Allergy Reactions Criticality Noted Date Comments Iodinated Contrast Media Nausea and Vomiting Low Medications aspirin (ECOTRIN EC) 81 mg Tablet, Delayed Release (E.C.) Take 81 mg by mouth daily. Active chlorthalidone (HYGROTON) 50 mg tablet Take 50 mg by mouth daily. Takes on Sunday, Sunday and sunday Active clotrimazole-bet amethasone (LOTRISONE) 1-0.05 % Cream Apply to affected area 2 times daily. Active imiquimod (ALDARA) 5 % Cream in Packet Apply 1 Packet to affected area. Active isosorbide dinitrate (ISORDIL) 30 mg Tablet Take 30 mg by mouth 3 times daily. Active metFORMIN (GLUCOPHAGE) 1,000 mg tablet Take 500 mg by mouth 2 times daily with meals. Active isosorbide mononitrate (IMDUR) 60 mg Extended Release 24 hour tablet Take 60 mg by mouth daily in the morning. Active atorvastatin (LIPITOR) 80 mg tablet Take 1 Tablet (80 mg) by mouth daily. Active carvediloL (COREG) 3.125 mg tablet Take 1 Tablet (3.125 mg) by mouth 2 times daily with meals. Hold medication for a documented heart rate of less than 50 BPM or a documented systolic blood pressure of less than 100 mmHg. Active torsemide (DEMADEX) 20 mg tablet Take 1 Tablet (20 mg) by mouth daily. Active potassium CHLORIDE (K-TAB) 20 mEq Extended Release tablet Take 2 Tablets (40 mEq) by mouth daily. Active oxyBUTYnin (DITROPAN XL) 5 mg Extended Release 24 hour tablet Take 1 Tablet (5 mg) by mouth daily. Active clopidogreL (PLAVIX) 75 mg Tablet Take 1 Tablet (75 mg) by mouth daily for 15 days. 06/15/20 Active Problems Problem Noted Date Diagnosed Date Orthostatic hypotension 05/28/2025 Stasis dermatitis of both legs 05/28/2025 TIA (transient ischemic attack) 05/27/2025 LV dysfunction 05/27/2025 Atherosclerosis of coronary artery without angin a pectoris 05/27/2025 Chest pain 05/27/2025 Paroxysmal atrial fibrillation 05/27/2025 Abnormal ventricular wall motion 05/27/2025 HFrEF (heart failure with reduced ejection fract ion) 05/27/2025 Stroke-like symptoms 05/27/2025 Dizziness 05/26/2025 Dysarthria 05/26/2025 Syncope 05/26/2025 Chronic acquired lymphedema 05/26/2025 MATHEUS on CPAP 05/26/2025 Coronary artery disease 05/26/2025 Pacemaker 05/26/2025 History of placement of stent in LAD coronary ar hoa 05/26/2025 Ascending aorta dilatation 05/26/2025 Cardiac pacemaker 05/26/2025 SSS (sick sinus syndrome) 05/26/2025 Hypokalemia 05/25/2025 DM (diabetes mellitus), type 2 05/25/2025 Overactive bladder 05/25/2025 Hypertension 05/25/2025 Hyperlipidemia 05/25/2025 Cardiomyopathy 05/25/2025 Resolved Problems Problem Noted Date Diagnosed Date Resolved Date Familial hypokalemic alkalosis, Gullner type 05/25/2025 Encounters Date Type Department Care Team Description 06/30/2025 External Device Data [facility] ABSTRACTION Provider, Abstract 06/30/2025 External Device Data [facility] ABSTRACTION Provider, Abstract 06/02/2025 External Device Data [facility] ABSTRACTION Provider, Abstract 06/02/2025 External Device Data [facility] ABSTRACTION Provider, Abstract 06/02/2025 External Device Data [facility] ABSTRACTION Provider, Abstract 05/29/2025 2:44 PM CDT - 05/29/2025 3:28 PM CDT Surgery [facility] Air Traffic Systems Technician [address] [place] [id number] Boom Monsalve MD Left heart cath 05/26/2025 Travel 05/25/2025 9:17 PM CDT - 05/30/2025 5:42 PM CDT Hospital Encounter [facility] Telemetry [address] [place] [address] Jed Hahn MD Abduljaber, MD Nathan Carrasco, Marimar Cabral MD Dizziness Discharge Disposition: [facility](SNF) with Medicare Certification in Anticipation of Skilled Care from Last 3 Months Social History Tobacco Use Types Packs/Day Years Used Date Smoking Tobacco: Unknown Tobacco Cessation:Counseling Given: Not Answered Sex and Gender Information Value Date Recorded Sex Assigned at Not on file Legal Sex Male 4:09 PM CDT Gender Identity Not on file Sexual Orientation Not on file Last Filed Vital Signs Vital Sign Reading Time Taken Comments Blood Pressure 118/59 05/30/2025 4:42 PM CDT Pulse 67 05/30/2025 4:42 PM CDT Temperature 36.6 C (97.8 F) 05/30/2025 4:42 PM CDT Respiratory Rate 15 05/30/2025 4:42 PM CDT Oxygen Saturation 100% 05/30/2025 4:42 PM CDT Inhaled Oxygen Concentration - - Weight 112.4 kg (247 lb 12.8 oz) 05/26/2025 9:14 AM CDT Height 180.3 cm (5' 11) 05/26/2025 9:14 AM CDT Body Mass Index 34.56 05/26/2025 9:14 AM CDT Plan of Treatment Health Maintenance Due Date Last Done Comments DIABETES ANNUAL RETINAL EXAM 1962 DIABETES MICROALBUMIN ANNUAL SCREEN 1962 DTAP/TDAP/TD VACCINES (1 - Tdap) 1963 ZOSTER VACCINE (1 of 2) 1994 RSV VACCINE (60+ or ) (1 - 1-dose 75+ series) 2019 COVID-19 Vaccine (3 - 2023-2 5 season) 2024 02/26/2021, 01/26/2021 DIABETES ANNUAL FOOT EXAM 01/17/2025 01/18/2024 INFLUENZA VACCINE (#1) 2025 , 09/14/2023, 09/25/2022, Additional history exists DIABETES HBA1C Q 6 MONTHS 12/11/20252024, 06/09/2025, 05/26/2025, Additional history exists LDL CHOLESTEROL ANNUAL 05/26/2026 05/26/2025 PNEUMOCOCCAL VACCINE 50+ YEARS Completed 0 01/13/2016, 09/02/2014, 08/06/2014, Additional history exists Medical Devices Implanted Type Area Underwater Welder Device Identifier Shelf Expiration Date Model / Serial / Lot Pacemaker (Not Mri Safe) Pacemaker Chest [employer] Description:Per [employer] Re p - NOT conditional. It's an older device from 2013. -jenny 05/26/25 Procedures Procedure Name Priority Date/Time Associated Diagnosis Comments POC GLUCOSE Routine 05/30/2025 4:47 PM CDT POC GLUCOSE Routine 05/30/2025 12:34 PM CDT POC GLUCOSE Routine 05/30/2025 8:45 AM CDT POC GLUCOSE Routine 05/30/2025 5:55 AM CDT POC GLUCOSE Routine 05/30/2025 12:44 AM CDT POC GLUCOSE Routine 05/29/2025 9:11 PM CDT POC GLUCOSE Routine 05/29/2025 6:05 PM CDT LEFT HEART CATH Routine 05/29/2025 2:45 PM CDT Cardiomyopathy (CMS/HCC) TELEMETRY REPORT 05/29/2025 12:2 3 PM CDT POC GLUCOSE Routine 05/29/2025 12:01 PM CDT POC GLUCOSE Routine 05/29/2025 7:43 AM CDT POC GLUCOSE Routine 05/29/2025 4:01 AM CDT BASIC METABOLIC PANEL Routine 05/29/2025 2:06 AM CDT POC GLUCOSE Routine 05/28/2025 11:59 PM CDT POC GLUCOSE Routine 05/28/2025 7:03 PM CDT POC GLUCOSE Routine 05/28/2025 3:13 PM CDT POC GLUCOSE Routine 05/28/2025 12:56 PM CDT MAGNESIUM LEVEL Stat 05/28/2025 9:33 AM CDT BASIC METABOLIC PANEL Stat 05/28/2025 9:33 AM CDT POC GLUCOSE Routine 05/28/2025 8:41 AM CDT POC GLUCOSE Routine 05/28/2025 4:06 AM CDT POC GLUCOSE Routine 05/27/2025 11:51 PM CDT POC GLUCOSE Routine 05/27/2025 8:46 PM CDT POC GLUCOSE Routine 05/27/2025 5:52 PM CDT POC GLUCOSE Routine 05/27/2025 1:[address] HEAD WO CONTRAST Pending Discharge 05/27/2025 11:47 AM CDT CBC WITHOUT DIFFERENTIAL Routine 05/27/2025 5:25 AM CDT BASIC METABOLIC PANEL Routine 05/27/2025 5:25 AM CDT POC GLUCOSE Routine 05/26/2025 8:09 PM CDT POTASSIUM LEVEL Timed Study 05/26/2025 7:11 PM CDT POC GLUCOSE Routine 05/26/2025 4:48 PM CDT ECHOCARDIOGRAM W/ CONTRAST AGENT Routine 05/26/2025 3:40 PM CDT POC GLUCOSE Routine 05/26/2025 12:46 PM CDT CTA HEAD AND NECK W AND/OR WO CONTRAST Stat 05/26/2025 11:47 AM CDT US VENOUS DOPPLER LEG BILATERAL Routine 05/26/2025 11:16 AM CDT POC GLUCOSE Routine 05/26/2025 8:39 AM CDT COMPREHENSIVE METABOLIC PANEL Routine 05/26/2025 7:05 AM CDT TROPONIN 6 HR, 5TH GEN Timed Study 05/26/2025 7:05 AM CDT POC GLUCOSE Routine 05/26/2025 5:07 AM CDT TROPONIN 2 HR, 5TH GEN Timed Study 05/26/2025 2:50 AM CDT DRUG SCREEN, URINE Routine 05/26/2025 12 :43 AM CDT POC GLUCOSE Routine 05/26/2025 12:40 AM CDT PHOSPHORUS Routine 05/26/2025 12:02 AM CDT MAGNESIUM LEVEL Routine 05/26/2025 12:02 AM CDT PTT Routine 05/26/2025 12:02 AM CDT TROPONIN BASELINE, 5TH GEN Stat 05/26/2025 12:02 AM CDT CBC WITH DIFFERENTIAL Routine 05/26/2025 12:02 AM CDT HEMOGLOBIN A1C Routine 05/26/2025 12:02 AM CDT LIPID PANEL Routine 05/26/2025 12:02 AM CDT from Last 3 Months Results * (ABNORMAL) POC GLUCOSE (05/30/2025 4:47 PM CDT) Only the most recent of26 resultswithin the time period is included. GLUCOSE POC 139(H) 74 - 99 mg/dL 05/30/2025 4:47 PM CDT [facility] SPECIMEN SOURCE, GLUCOSE POC Whole Blood 05/30/2025 4:47 PM CDT [facility] COMMENT, GLU POC Notified RN/MD 05/30/2025 4:47 PM CDT [facility] Blood, whole 05/30/2025 4:47 PM CDT 05/30/2025 4:56 PM CDT us Marimar Evans MD POINT OF CARE TESTING Fin al Result [facility]# [id number] [facility] [place] [address] * LEFT HEART CATH (05/29/2025 2:45 PM CDT) 05/29/2025 1:35 PM CDT Narrative [facility] HEART AND VASCULAR [facility] - 05/29/2025 2:58 PM CDT ASSESSMENT: No new or notable CAD observed (same mild LAD restenosis as noted last angiogram a few years ago and only mild stable plaquing elsewhere) Normal LV filling pressure Unremarkable aortic valve gradient RECOMMENDATIONS: TR band removal per protocol No new CAD observed or anything that would explain his new symptoms. Continue long-term ASA statin etc. Boom Monsalve MD General & Interventional Cardiology [facility] Heart and Vascular - [place] (and [facility]) Procedure Details LEFT HEART CATHETERIZATION/CORONARY ANGIOGRAPHY Access: R radial artery Hemostasis: compression band Indications: dizziness, ? syncope. New segmental LV dysfunction EF 45-50%. AFib. Hx CAD and LAD PCI in past (x 2). PROCEDURE DETAILS After informed consent, prepping the patient in a sterile fashion, and administering light conscious sedation, we locally anesthetized the skin over the right radial artery and placed a 6 Wolof sheath via the modified Seldinger technique. We gave intra-arterial Verapamil and intravenous heparin. We used a 0.035 inch wire for catheter exchanges and a Jeremy catheter for selective angiography of the right and left coronaries independently as well as crossing the aortic valve performing left ventricular pressure assessment and aortic valve pullback. There were no complications, and we used a radial compression band at the end of the case for hemostasis. Results: Left main: normal LAD: proximal minor plaquing. Mid stent(s) present with same 20% restenosis narrowing as last angiogram a few years ago. Distal mild plaquing. Diagonals with irregularities but no notable disease. LCx: minor irregularities at most in LCx/OM branch. No substantial CAD observed. RCA: dominant. Large caliber. Mild calcified irregularities in a few segments but no notable atherosclerotic disease observed. (Official, finalized hemodynamics): LV 110/10 Ao 102/68 Jennifer Escobedo NP CUP CATH ORDERABLES Final Resul t [facility] HEART AND VASCULAR [facility] CLIA# [id number] [address] [place] [address] * TELEMETRY REPORT (05/29/2025 12:23 PM CDT) us Provider Scanning ECG ORDERABLES Final Result * (ABNORMAL) BASIC METABOLIC PANEL (05/29/2025 2:06 AM CDT) Only the most recent of3 resultswithin the time period is included. SODIUM 137 136 - 145 mmol/L 05/29/2025 3:38 AM [facility] LABORATORY SERVICES - [facility] POTASSIUM 3.9 3.5 - 5.0 mmol/L 05/29/2025 3:38 AM [facility] LABORATORY [facility] CHLORIDE 102 98 - 107 mmol/L 05/29/2025 3:38 AM [facility] LABORATORY [facility] - . [facility] CO2 24 22 - 29 mmol/L 05/29/2025 3:38 AM [facility] CALCIUM 8.4(L) 8.6 - 10.2 mg/dL 05/29/2025 3:38 AM [facility] LABORATORY [facility] - . [facility] BUN 14 8 - 23 mg/dL 05/29/2025 3:38 AM [facility] CREATININE 0.65(L) 0.67 - 1.17 mg/dL 05/29/2025 3:38 AM [facility] [facility] Comment:The GFR result is no t clinically significant on patients <18 or >70 years of age. GLUCOSE 216(H) 74 - 99 mg/dL 05/29/2025 3:38 AM [facility] GFR >60 mL/min/1.7 3 sq meter 05/29/2025 3:38 AM [facility] [facility] Comment:eGFR calculated with 2020 CKD-EPI equation. Vegetarian diet, extremely high or low muscle mass, and may affect results. Cystatin C with Glomerular Filtration Rate is a suitable alternative for these patients. ANION GAP 11 8 - 16 mmol/L 05/29/2025 3:38 AM [facility] [facility] Blood Venipuncture / Unknown 05/29/2025 2:06 AM CDT 05/29/2025 3:00 AM CDT us Corina Worley NP CHEMISTRY ORDERABLES Final Result [facility] CLIA# [id number] [address] [place] [address] * MAGNESIUM LEVEL (05/28/2025 9:33 AM CDT) Only the most recent of2 resultswithin the time period is included. MAGNESIUM 1.7 1.6 - 2.4 mg/dL 05/28/2025 10:36 AM CDT [facility] Blood Venipuncture / Unknown 05/28/2025 9:33 AM CDT 05/28/2025 9:58 AM CDT us Corina Worley NP CHEMISTRY ORDERABLES Final Result [facility] CLIA# [id number] [address] [place] [address] * CT HEAD WO CONTRAST (05/27/2025 11:47 AM CDT) Anatomical Region Laterality Modality Head Computed Tomogra phy 05/27/2025 11:4 7 AM CDT Impressions 05/27/2025 11:51 AM CDT IMPRESSION: 1. No acute intracranial changes. DICTATION LOCATION: Location [address] [place] [address] Narrative 05/27/2025 11:[address] WITHOUT CONTRAST 05/27/2025 11:47 AM CLINICAL HISTORY: Neuro deficit. Rule out cerebrovascular accident. TECHNIQUE: CT examination of the brain is performed in contiguous axial slices with sagittal and coronal reconstructions. COMPARISON: Prior study dated 05/26/2025. The examination was performed with the adjustment of mA according to the patient size and/or use of Iterative Reconstruction Technique. FINDINGS: The fourth ventricle lies in a normal midline position. The ventricles and sulci are prominent secondary to atrophy. Chronic small vessel ischemic changes are present in the periventricular regions. Intracranial atherosclerosis is evident. There is no hypodense or hyperdense mass, or intracranial hemorrhage. Visualized paranasal sinuses and the mastoid air cells are clear. INCIDENTAL FINDINGS: None. Procedure Note Harris Riley MD - 05/27/[address] WITHOUT CONTRAST 05/27/2025 11:47 AM CLINICAL HISTORY: Neuro deficit. Rule out cerebrovascular accident. TECHNIQUE: CT examination of the brain is performed in contiguous axial slices with sagittal and coronal reconstructions. COMPARISON: Prior study dated 05/26/2025. The examination was performed with the adjustment of mA according to the patient size and/or use of Iterative Reconstruction Technique. FINDINGS: The fourth ventricle lies in a normal midline position. The ventricles and sulci are prominent secondary to atrophy. Chronic small vessel ischemic changes are present in the periventricular regions. Intracranial atherosclerosis is evident. There is no hypodense or hyperdense mass, or intracranial hemorrhage. Visualized paranasal sinuses and the mastoid air cells are clear. INCIDENTAL FINDINGS: None. IMPRESSION: 1. No acute intracranial changes. DICTATION LOCATION: Location [address] [place] [address] ORDERABLES Final Result * (ABNORMAL) CBC WITHOUT DIFFERENTIAL (05/27/2025 5:25 AM CDT) WBC 6.2 4.0 - 9.8 K/uL 05/27/2025 7:27 AM [facility] LABORATORY SERVICES [facility] RBC 3.77(L) 4.50 - 5.40 M/uL 05/27/2025 7:27 AM [facility] [facility] HEMOGLOBIN 11.5(L) 13.6 - 16.5 g/dL 05/27/2025 7:27 AM [facility] [facility] HEMATOCRIT 33.8(L) 40.0 - 48.0 % 05/27/2025 7:27 AM [facility] LAB[facility]ATORY SERVICES [facility] MCV 89.7 82.0 - 99.0 fL 05/27/2025 7:27 AM [facility] [facility] MCH 30.5 27.2 - 32.6 pg 05/27/2025 7:27 AM [facility] LABORATORY SERVICES [facility] MCHC 34.0 31.5 - 35.5 g/dL 05/27/2025 7:27 AM [facility] [facility] PLATELETS 83(L) 140 - 350 K/uL 05/27/2025 7:27 AM [facility] LAB[facility]ATORY SERVICES [facility] Comment:Persistent abnormal result. MPV 10.5 9.3 - 12.4 fL 05/27/2025 7:27 AM CDT [facility] LABORATORY [facility] RDW 17.3(H) 11.5 - 14.5 % 05/27/2025 7:27 AM CDT [facility] LABORATORY [facility] RDW-STDEV 56.2(H) 37.1 - 48.7 fL 05/27/2025 7:27 AM CDT [facility] Blood Venipuncture / Unknown 05/27/2025 5:25 AM CDT 05/27/2025 6:40 AM CDT Corina Worley NP HEMATOLOGY ORDERABLES Final Result [facility] CLIA# [id number] [address] [facility] [place] [address] * (ABNORMAL) POTASSIUM LEVEL (05/26/2025 7:11 PM CDT) POTASSIUM 2.8(L) 3.5 - 5.0 mmol/L 05/26/2025 9:09 PM CDT [facility] Blood Venipuncture / Unknown 05/26/2025 7:11 PM CDT 05/26/2025 8:28 PM CDT Marimar Evans MD CHEMISTRY ORDERABLES Sally l Result [facility] CLIA# [id number] [address] [facility] [place] [address] * ECHOCARDIOGRAM W/ CONTRAST AGENT (05/26/2025 3:40 PM CDT) EJECTION FRACTION EF: INTERFACE SYSTEM 05/26/2025 3:05 PM CDT Narrative INTERFACE SYSTEM - 05/26/2025 4:56 PM CDT [facility] [address] [place] [address] [email or web address] Transthoracic Echocardiogram Patient: Clyde Gibson Study ID: [id number] Gender: M : 1945 Age: 79 Race: Height 180.3cm Study Date: 05/26/2025 Weight: 112.4kg Access. #: [id number] BP: 120 / 60 *Referring Physician:Kenton Kennedy Wael Mohammed *Ordering Physician:Kenton Kennedy museum security chief: Nurse: Indications: Syncope. Benign essential hypertension. History: PMH: CAD. STUDY CONCLUSIONS: SUMMARY: - Left ventricle: The cavity size was normal. Wall thickness was normal. Global systolic function is mildly reduced. The estimated ejection fraction is 45-50%. Severe hypokinesis of the apicalanteroseptal and apical goodwin. - Aortic valve: There is moderate focal nodularity, thickening, calcification, and sclerosis without stenosis. - Mitral valve: The annulus is calcified. Mild regurgitation. - Left atrium: The atrium is dilated. - Right ventricle: The cavity size is normal. Systolic function is normal. - Tricuspid valve: Mild regurgitation. Cardiac Anatomy: LEFT VENTRICLE: The cavity size was normal. Wall thickness was normal. Global systolic function is mildly reduced. The estimated ejection fraction is 45-50%. Regional wall motion: Severe hypokinesis of the apicalanteroseptal and apical goodwin. AORTIC VALVE: Trileaflet. There is moderate focal nodularity, thickening, calcification, and sclerosis without stenosis. Cusp separation is normal. Velocity is within the normal range. No significant regurgitation. The mean systolic gradient is 6mm Hg. The peak systolic gradient is 10mm Hg. The LVOT to aortic valve VTI ratio is 0.73. The valve area is 2.3cm^2. The ratio of LVOT to aortic valve peak velocity is 0.68. AORTA: Aortic root: The root is normal-sized. MITRAL VALVE: The annulus is calcified. Mild regurgitation. The mean diastolic gradient is 3mm Hg. The peak diastolic gradient is 6mm Hg. LEFT ATRIUM: The atrium is dilated. RIGHT VENTRICLE: The cavity size is normal. Systolic function is normal. PULMONIC VALVE: Structurally normal valve. No significant regurgitation. TRICUSPID VALVE: Structurally normal valve. Mild regurgitation. PULMONARY ARTERY: Systolic pressure was at the upper limits of normal, estimated to be 36mm Hg. RIGHT ATRIUM: The atrium was normal in size. SYSTEMIC VEINS: Inferior vena cava: The IVC is normal-sized. PERICARDIUM: There is no pericardial effusion. Measurements Left ventricle Value Ref E', lat seven, TDI (N) 11.5 cm/sec >=10.0 E/e', lat seven, TDI (N) 8 <=13 E', med seven, TDI (N) 7.1 cm/sec >=7.0 E/e', med seven, TDI 13 --------- E', avg, TDI 9.3 cm/sec --------- E/e', avg, TDI (N) 10 <=14 LVOT Value Ref Diam, S 2.0 cm --------- Area 3.1 cm^2 --------- Peak lea, S 1.1 m/sec --------- VTI, S 25.4 cm --------- Right ventricle Value Ref Pressure, S 34 mm Hg --------- Left atrium Value Ref AP dim, ES (N) 3.8 cm 3.0 - 4.0 AP dim index, ES (N) 1.6 cm/m^2 1.5 - 2.3 SI dim, A4C 6.2 cm --------- Area ES, A4C (H) 22 cm^2 <=20 Area/bsa ES, A4C 9.39 cm^2/m^2 --------- SI dim, A2C 6.8 cm --------- SI dim, shorter 6.2 cm --------- Vol, ES, 1-p A2C (H) 98 ml 18 - 58 Vol/bsa, ES, 1-p A2C (N) 42 ml/m^2 11 - 43 Vol, ES, 2-p 82 ml --------- Vol/bsa, ES, 2-p (H) 35 ml/m^2 16 - 34 LA/Ao root ratio 1.19 --------- Aortic valve Value Ref Peak v, S 1.6 m/sec --------- Mean v, S 1.14 m/sec --------- VTI, S 34.9 cm --------- Mean grad, S 6 mm Hg --------- Peak grad, S 10 mm Hg --------- LVOT/AV, VTI ratio 0.73 --------- JR, VTI 2.3 cm^2 --------- JR/bsa, VTI 0.99 cm^2/m^2 --------- LVOT/AV, Vpeak ratio 0.68 --------- JR, Vmax 2.2 cm^2 --------- JR/bsa, Vmax 0.93 cm^2/m^2 --------- Mitral valve Value Ref Mean v, D 0.88 m/sec --------- Peak E 0.89 m/sec --------- Peak A 0.99 m/sec --------- Decel time 208 ms --------- Mean grad, D 3 mm Hg --------- Peak grad, D 6 mm Hg --------- Peak E/A ratio 0.9 --------- A-VTI 42.1 cm --------- Max MR v 5.26 m/sec --------- Peak LV-LA grad S 111 mm Hg --------- Pulmonic valve Value Ref Peak v, S 1.27 m/sec --------- Peak grad, S 6 mm Hg --------- Tricuspid valve Value Ref TR peak v (N) 2.7 m/sec <=2.8 Peak RV-RA grad, S 29 mm Hg --------- Aortic root Value Ref Root diam, 3.2 cm --------- Systemic veins Value Ref Estimated RA pressure 5 mm Hg --------- Legend: (L) and (H) mason values outside specified reference range. (N) regalado values inside specified reference range. Procedure data: Procedure information: A transthoracic echocardiogram was performed. Scanning was performed from the parasternal, apical, and subcostal acoustic windows. Intravenous contrast (Definity) was administered. Transthoracic echocardiogram. Complete 2D, complete spectral Doppler, and color Doppler. Birthdate: Patient birthdate: 1945. Age: Patient is 79year(s) old. Sex: gender: male. Height: 180.3cm. 71in. Weight: 112.4kg. 247.8lb. Body mass index: 34.6kg/m^2. Body surface area: 2.31m^2. Blood pressure: 120/60 Study date: Study date: 05/26/2025. Study time: 03:05 PM. Prepared and Electronically Authenticated Kin Meeks M.D. [id number] Procedure Note Kin Meeks MD - 05/26/2025 [place] [address] [email or web address] Transthoracic Echocardiogram Patient: Clyde Gibson Study ID: [id number] Gender: M : 1945 Age: 79 Race: Height 180.3cm Study Date: 05/26/2025 Weight: 112.4kg Access. #: [id number] BP: 120 / 60 *Referring Physician:Kenton Kennedy WaelMohammed *Ordering Physician:Kenton Kennedy museum security chief: Nurse: Indications: Syncope. Benign essential hypertension. History: PMH: CAD. STUDY CONCLUSIONS: SUMMARY: - Left ventricle: The cavity size was normal. Wall thickness was normal. Global systolic function is mildly reduced. The estimated ejectionfraction is 45-50%. Severe hypokinesis of the apicalanteroseptal and apicalwalls. - Aortic valve: There is moderate focal nodularity, thickening,calcification, and sclerosis without stenosis. - Mitral valve: The annulus is calcified. Mild regurgitation. - Left atrium: The atrium is dilated. - Right ventricle: The cavity size is normal. Systolic function isnormal. - Tricuspid valve: Mild regurgitation. Cardiac Anatomy: LEFT VENTRICLE: The cavity size was normal. Wall thickness was normal.Global systolic function is mildly reduced. The estimated ejection fraction is 45-50%. Regional wall motion: Severe hypokinesis of the apicalanteroseptal and apical goodwin. AORTIC VALVE: Trileaflet. There is moderate focal nodularity,thickening, calcification, and sclerosis without stenosis. Cusp separation isnormal. Velocity is within the normal range. No significant regurgitation. Themean systolic gradient is 6mm Hg. The peak systolic gradient is 10mm Hg. TheLVOT to aortic valve VTI ratio is 0.73. The valve area is 2.3cm^2. The ratioof LVOT to aortic valve peak velocity is 0.68. AORTA: Aortic root: The root is normal-sized. MITRAL VALVE: The annulus is calcified. Mild regurgitation. The mean diastolic gradient is 3mm Hg. The peak diastolic gradient is 6mm Hg. LEFT ATRIUM: The atrium is dilated. RIGHT VENTRICLE: The cavity size is normal. Systolic function isnormal. PULMONIC VALVE: Structurally normal valve. No significantregurgitation. TRICUSPID VALVE: Structurally normal valve. Mild regurgitation. PULMONARY ARTERY: Systolic pressure was at the upper limits of normal, estimated to be 36mm Hg. RIGHT ATRIUM: The atrium was normal in size. SYSTEMIC VEINS: Inferior vena cava: The IVC is normal-sized. PERICARDIUM: There is no pericardial effusion. Measurements Left ventricle Value Ref E', lat seven, TDI (N) 11.5 cm/sec >=10.0 E/e', lat seven, TDI (N) 8 <=13 E', med seven, TDI (N) 7.1 cm/sec >=7.0 E/e', med seven, TDI 13 --------- E', avg, TDI 9.3 cm/sec --------- E/e', avg, TDI (N) 10 <=14 LVOT Value Ref Diam, S 2.0 cm --------- Area 3.1 cm^2 --------- Peak lea, S 1.1 m/sec --------- VTI, S 25.4 cm --------- Right ventricle Value Ref Pressure, S 34 mm Hg --------- Left atrium Value Ref AP dim, ES (N) 3.8 cm 3.0 - 4.0 AP dim index, ES (N) 1.6 cm/m^2 1.5 - 2.3 SI dim, A4C 6.2 cm --------- Area ES, A4C (H) 22 cm^2 <=20 Area/bsa ES, A4C 9.39 cm^2/m^2 --------- SI dim, A2C 6.8 cm --------- SI dim, shorter 6.2 cm --------- Vol, ES, 1-p A2C (H) 98 ml 18 - 58 Vol/bsa, ES, 1-p A2C (N) 42 ml/m^2 11 - 43 Vol, ES, 2-p 82 ml --------- Vol/bsa, ES, 2-p (H) 35 ml/m^2 16 - 34 LA/Ao root ratio 1.19 --------- Aortic valve Value Ref Peak v, S 1.6 m/sec --------- Mean v, S 1.14 m/sec --------- VTI, S 34.9 cm --------- Mean grad, S 6 mm Hg --------- Peak grad, S 10 mm Hg --------- LVOT/AV, VTI ratio 0.73 --------- JR, VTI 2.3 cm^2 --------- JR/bsa, VTI 0.99 cm^2/m^2 --------- LVOT/AV, Vpeak ratio 0.68 --------- JR, Vmax 2.2 cm^2 --------- JR/bsa, Vmax 0.93 cm^2/m^2 --------- Mitral valve Value Ref Mean v, D 0.88 m/sec --------- Peak E 0.89 m/sec --------- Peak A 0.99 m/sec --------- Decel time 208 ms --------- Mean grad, D 3 mm Hg --------- Peak grad, D 6 mm Hg --------- Peak E/A ratio 0.9 --------- A-VTI 42.1 cm --------- Max MR v 5.26 m/sec --------- Peak LV-LA grad S 111 mm Hg --------- Pulmonic valve Value Ref Peak v, S 1.27 m/sec --------- Peak grad, S 6 mm Hg --------- Tricuspid valve Value Ref TR peak v (N) 2.7 m/sec <=2.8 Peak RV-RA grad, S 29 mm Hg --------- Aortic root Value Ref Root diam, 3.2 cm --------- Systemic veins Value Ref Estimated RA pressure 5 mm Hg --------- Legend: (L) and (H) mason values outside specified reference range. (N) regalado values inside specified reference range. Procedure data: Procedure information: A transthoracic echocardiogram was performed.Scanning was performed from the parasternal, apical, and subcostal acousticwindows. Intravenous contrast (Definity) was administered. Transthoracic echocardiogram. Complete 2D, complete spectral Doppler, and colorDoppler. Birthdate: Patient birthdate: 1945. Age: Patient is 79year(s)old. Sex: gender: male. Height: 180.3cm. 71in. Weight: 112.4kg.247.8lb. Body mass index: 34.6kg/m^2. Body surface area: 2.31m^2. Blood pressure: 120/60 Study date: Study date: 05/26/2025. Study time:03:05 PM. Prepared and Electronically Authenticated Kin Meeks M.D. [id number] us Kenton Miguel MD US ORDERABLES Sally l Result INTERFACE SYSTEM Refer to clinic/hospital department * CTA HEAD AND NECK W AND/OR WO CONTRAST (05/26/2025 11:47 AM CDT) Anatomical Region Laterality Modality Head Computed Tomogra phy 05/26/2025 11:3 7 AM CDT Impressions 05/26/2025 11:54 AM CDT IMPRESSION: 1. No acute intracranial hemorrhage. 2. No large arterial occlusions or significant stenoses identified in the head or neck. DICTATION LOCATION: Location 1 [facility] 05/26/2025 11:54 AM CDT EXAMINATION: CTA HEAD AND NECK W AND/OR WO CONTRAST HISTORY: Transient ischemic attack (TIA). See Reason for Exam TECHNIQUE: CT of the head was performed without contrast according to standard protocol. Then CT angiography of the head and neck was obtained after the uneventful administration of 80 mL Isovue 300 intravenous contrast. RAPID LVO detection software was utilized. The images were reconstructed in Maximum Intensity Projection (MIP) using coronal and sagittal projections by the technologist and sent to the workstation for review. The examination was performed with the adjustment of mA according to the patient size and/or the use of Iterative Reconstruction Technique. FINDINGS: No prior study is available for comparison at the time of this dictation. Non-angiographic findings: No acute intra- or extra-axial fluid collections are identified. The ventricles are of normal size, shape, and morphology. The basilar cisterns are patent. No mass effect or midline shift is seen. The wright-white matter differentiation is normal. Periventricular white matter hypoattenuation is indicative of chronic small vessel ischemic disease. There is vascular calcification of the carotid siphons. Other than bilateral cataract extractions, the visible portions of the orbits, paranasal sinuses, and mastoids appear normal. No acute fracture is identified. A right chest wall pacemaker is partially imaged. Angiographic findings: The visible aortic arch appears normal. The configuration of the brachiocephalic vessels is typical. The innominate artery and both subclavian arteries appear normal. There is atherosclerotic disease of the right carotid bifurcation and origin of the right internal carotid artery with less than 50 percent focal stenosis by [place] Stroke and Carotid Endarterectomy Trial (NASCET) criteria. The right common and internal carotid arteries otherwise appear normal. There is atherosclerotic disease of the left carotid bifurcation and origin of the left internal carotid artery with less than 50 percent focal stenosis by [place] Stroke and Carotid Endarterectomy Trial (NASCET) criteria. The left common and internal carotid arteries otherwise appear normal. The cervical vertebral arteries appear normal. There is atherosclerotic disease involving the distal internal carotid arteries without significant focal stenosis. The anterior and middle cerebral arteries appear normal with a hypoplastic left A1 segment. The distal vertebral arteries appear normal. The basilar artery and posterior cerebral arteries appear normal with origin of the left posterior cerebral artery. No aneurysms, vascular occlusions, or intracranial stenoses are identified. Procedure Note Schuyler Short MD - 05/26/2025 EXAMINATION: CTA HEAD AND NECK W AND/OR WO CONTRAST HISTORY: Transient ischemic attack (TIA). See Reason for Exam TECHNIQUE: CT of the head was performed without contrast according to standard protocol. Then CT angiography of the head and neck was obtained after the uneventful administration of 80 mL Isovue 300 intravenous contrast. RAPID LVO detection software was utilized. The images were reconstructed in Maximum Intensity Projection (MIP) using coronal and sagittal projections by the technologist and sent to the workstation for review. The examination was performed with the adjustment of mA according to the patient size and/or the use of Iterative Reconstruction Technique. FINDINGS: No prior study is available for comparison at the time of this dictation. Non-angiographic findings: No acute intra- or extra-axial fluid collections are identified. The ventricles are of normal size, shape, and morphology. The basilar cisterns are patent. No mass effect or midline shift is seen. The wright-white matter differentiation is normal. Periventricular white matter hypoattenuation is indicative of chronic small vessel ischemic disease. There is vascular calcification of the carotid siphons. Other than bilateral cataract extractions, the visible portions of the orbits, paranasal sinuses, and mastoids appear normal. No acute fracture is identified. A right chest wall pacemaker is partially imaged. Angiographic findings: The visible aortic arch appears normal. The configuration of the brachiocephalic vessels is typical. The innominate artery and both subclavian arteries appear normal. There is atherosclerotic disease of the right carotid bifurcation and origin of the right internal carotid artery with less than 50 percent focal stenosis by [place] Stroke and Carotid Endarterectomy Trial (NASCET) criteria. The right common and internal carotid arteries otherwise appear normal. There is atherosclerotic disease of the left carotid bifurcation and origin of the left internal carotid artery with less than 50 percent focal stenosis by [place] Stroke and Carotid Endarterectomy Trial (NASCET) criteria. The left common and internal carotid arteries otherwise appear normal. The cervical vertebral arteries appear normal. There is atherosclerotic disease involving the distal internal carotid arteries without significant focal stenosis. The anterior and middle cerebral arteries appear normal with a hypoplastic left A1 segment. The distal vertebral arteries appear normal. The basilar artery and posterior cerebral arteries appear normal with origin of the left posterior cerebral artery. No aneurysms, vascular occlusions, or intracranial stenoses are identified. IMPRESSION: 1. No acute intracranial hemorrhage. 2. No large arterial occlusions or significant stenoses identified in the head or neck. DICTATION LOCATION: Location 1 - [facility] Aneudy Workman MD CT ORDERABLES Final Resul t * US VENOUS DOPPLER LEG BILATERAL (05/26/2025 11:16 AM CDT) Anatomical Region Laterality Modality Lower Extremity Ultrasound 05/26/2025 10:5 1 AM CDT Narrative 05/26/2025 3:18 PM CDT [address] [place] [address] [email or web address] Venous Exam Complete Lower Extremity Duplex Patient: Clyde Gibson Study ID: [id number] Gender: M : 1945 Age: 79 Race: Height Study Date: 05/26/2025 Weight: Access. #: [id number] *Referring Physician:Kenton Kennedy Wael Mohammed *Ordering Physician:Kenton Kennedy *Home Security Alarm Installer:Heather Arreaga History: Edema of both lower extremities. PMH: No prior study is available for comparison. Study data: New node Study status: Routine. Procedure: A vascular evaluation was performed. Image quality was good. Complete lower extremity venous duplex evaluation. Doppler flow study including spectral analysis, color and wright scale imaging. Birthdate: Patient birthdate: 1945. Age: Patient is 79year(s) old. Sex: gender: male. Study date: Study date: 05/26/2025. Study time: 10:51 AM. Location: Vascular laboratory. Patient status: Inpatient. Impressions Study data: No prior study is available for comparison. No evidence of deep vein thrombosis involving the bilateral lower extremities. Tables: Venous flow: + +-------+ + !Location !Overall!Flow properties ! + +-------+ + !Right common femoral - !Patent !Phasic; spontaneous; normal augmentation; ! ! ! !compressible; no reflux ! + +-------+ + !Right femoral - !Patent !Compressible ! + +-------+ + !Right profunda femoral -!Patent !Compressible ! + +-------+ + !Right popliteal - !Patent !Phasic; spontaneous; normal augmentation; ! ! ! !compressible; no reflux ! + +-------+ + !Right posterior tibial -!Patent !Compressible ! + +-------+ + !Right peroneal - !Patent !Compressible ! + +-------+ + !Left common femoral - !Patent !Phasic; spontaneous; normal augmentation; ! ! ! !compressible; no reflux ! + +-------+ + !Left femoral - !Patent !Compressible ! + +-------+ + !Left profunda femoral - !Patent !Compressible ! + +-------+ + !Left popliteal - !Patent !Phasic; spontaneous; normal augmentation; ! ! ! !compressible; no reflux ! + +-------+ + !Left posterior tibial - !Patent !Compressible ! + +-------+ + !Left peroneal - !Patent !Compressible ! + +-------+ + *Velocities are expressed in cm/s, Diameters are expressed in mm Prepared and Electronically Authenticated Jed King [id number] Procedure Note Jed King MD - 05/26/[address] [address] [email or web address] Venous Exam Complete Lower Extremity Duplex Patient: Clyde Gibson Study ID: [id number] Gender: M : 1945 Age: 79 Race: Height Study Date: 05/26/2025 Weight: Access. #: [id number] *Referring Physician:Kenton Kennedy Wael Mohammed *Ordering Physician:Kenton Kennedy *Home Security Alarm Installer:Heather Arreaga History: Edema of both lower extremities. PMH: No prior study isavailable for comparison. Study data: New node Study status: Routine. Procedure: A vascular evaluation was performed. Image quality was good. Complete lowerextremity venous duplex evaluation. Doppler flow study including spectralanalysis, color and wright scale imaging. Birthdate: Patient birthdate:1945. Age: Patient is 79year(s) old. Sex: gender: male. Study date:Study date: 05/26/2025. Study time: 10:51 AM. Location: Vascular laboratory. Patient status: Inpatient. Impressions Study data: No prior study is available for comparison. No evidence ofdeep vein thrombosis involving the bilateral lower extremities. Tables: Venous flow: + +-------+ + !Location !Overall!Flow properties! + +-------+ + !Right common femoral - !Patent !Phasic; spontaneous; normalaugmentation; ! ! ! !compressible; no reflux! + +-------+ + !Right femoral - !Patent !Compressible! + +-------+ + !Right profunda femoral -!Patent !Compressible! + +-------+ + !Right popliteal - !Patent !Phasic; spontaneous; normalaugmentation; ! ! ! !compressible; no reflux! + +-------+ + !Right posterior tibial -!Patent !Compressible! + +-------+ + !Right peroneal - !Patent !Compressible! + +-------+ + !Left common femoral - !Patent !Phasic; spontaneous; normalaugmentation; ! ! ! !compressible; no reflux! + +-------+ + !Left femoral - !Patent !Compressible! + +-------+ + !Left profunda femoral - !Patent !Compressible! + +-------+ + !Left popliteal - !Patent !Phasic; spontaneous; normalaugmentation; ! ! ! !compressible; no reflux! + +-------+ + !Left posterior tibial - !Patent !Compressible! + +-------+ + !Left peroneal - !Patent !Compressible! + +-------+ + *Velocities are expressed in cm/s, Diameters are expressed in mm Prepared and Electronically Authenticated Jed King [id number] Kenton Miguel MD US ORDERABLES Sally l Result * (ABNORMAL) TROPONIN 6 HR, 5TH GEN (05/26/2025 7:05 AM CDT) TROPONIN T, 6 HR 5TH GEN 29(H) <=15 ng/L 05/26/2025 7:49 AM CDT [facility] DELTA 6HR TROPONIN T 1 See Interp. 05/26/2025 7:49 AM CDT [facility] Blood Venipuncture / Unknown 05/26/2025 7:05 AM CDT 05/26/2025 7:10 AM CDT Narrative [facility] - 05/26/2025 7:49 AM CDT Troponin elevated. Delta indeterminate. Delay in collection of timed specimen beyond recommended collection interval. Results must be interpreted in clinical context. Kenton Miguel MD CHEMISTRY ORDERABLES Final Result [employer] [facility] [place]# [id number] [address] [place] [address] * (ABNORMAL) COMPREHENSIVE METABOLIC PANEL (05/26/2025 7:05 AM CDT) SODIUM 139 136 - 145 mmol/L 05/26/2025 7:49 AM T [facility] POTASSIUM 2.8(L) 3.5 - 5.0 mmol/L 05/26/2025 7:49 AM T [facility] CHLORIDE 98 98 - 107 mmol/L 05/26/2025 7:49 AM T [facility] CO2 31(H) 22 - 29 mmol/L 05/26/2025 7:49 AM T [facility] - [facility] CALCIUM 8.6 8.6 - 10.2 mg/dL 05/26/2025 7:49 AM T [facility] BUN 20 8 - 23 mg/dL 05/26/2025 7:49 AM T [facility] - . [facility] CREATININE 0.85 0.67 - 1.17 mg/dL 05/26/2025 7:49 AM T [facility] - [facility] [place] Comment:The GFR result is no t clinically significant on patients <18 or >70 years of age. GLUCOSE 124(H) 74 - 99 mg/dL 05/26/2025 7:49 AM T [facility] TOTAL PROTEIN 6.3(L) 6.7 - 8.6 g/dL 05/26/2025 7:49 AM T [facility] - [facility] [place] ALBUMIN 2.8(L) 3.5 - 5.2 g/dL 05/26/2025 7:49 AM T [facility] [place] BILIRUBIN TOTAL 1.0 0.0 - 1.1 mg/dL 05/26/2025 7:49 AM T [facility] [place] ALKALINE PHOSPHATASE 96 40 - 129 U/L 05/26/2025 7:49 AM T [facility] [place] AST 29 <41 U/L 05/26/2025 7:49 AM CDT [facility] ALT 15 <42 U/L 05/26/2025 7:49 AM CDT [facility] GFR >60 mL/min/1.7 3 sq meter 05/26/2025 7:49 AM T [facility] Comment:eGFR calculated with 2020 CKD-EPI equation. Vegetarian diet, extremely high or low muscle mass, and may affect results. Cystatin C with Glomerular Filtration Rate is a suitable alternative for these patients. ANION GAP 10 8 - 16 mmol/L 05/26/2025 7:49 AM T [facility] Blood Venipuncture / Unknown 05/26/2025 7:05 AM CDT 05/26/2025 7:10 AM CDT Narrative [facility] - 05/26/2025 7:49 AM CDT Samples containing indocyanine green cause interferences on Total and/or Direct Bilirubin and must not be measured. Kenton Miguel MD CHEMISTRY ORDERABLES Final Result [facility]# [id number] 5 [facility] [place] [address] * (ABNORMAL) TROPONIN 2 HR, 5TH GEN (05/26/2025 2:50 AM CDT) TROPONIN T, 2 HR 5TH GEN 28(H) <=15 ng/L 05/26/2025 4:15 AM CDT [facility] DELTA 2HR TROPONIN T 0 See Interp. 05/26/2025 4:15 AM CDT [facility] Blood Venipuncture / Unknown 05/26/2025 2:50 AM CDT 05/26/2025 3:35 AM CDT Narrative [facility] - 05/26/2025 4:15 AM CDT Troponin elevated. Delta not changing. Delay in collection of timed specimen beyond recommended collection interval. Results must be interpreted in clinical context. Kenton Miguel MD CHEMISTRY ORDERABLES Final Result [facility]# [id number] [address] [place] [address] * (ABNORMAL) DRUG SCREEN, URINE (05/26/2025 12:43 AM CDT) [facility] AMPHETAMINE QUAL, URINE Negative Negative 05/26/2025 1:21 AM CDT [facility] LABORATORY SERVICES - [facility] BARBITURATE QUAL, URINE Negative Negative 05/26/2025 1:21 AM T [facility] SERVICES - [facility] BENZODIAZEPINE QUAL, URINE Negative Negative 05/26/2025 1:21 AM [facility] LABORATORY [facility] - [facility] COCAINE QUAL URINE Negative Negative 2024 1:21 AM T [facility] OPIATE QUAL, URINE Negative Negative 2024 1:21 AM T [facility] CANNABINOIDS QUAL, URINE Negative Negative 05/26/2025 1:21 AM [facility] [facility] PCP QUAL, URINE Negative Negative 1:21 AM T [facility] OXYCODONE QUAL, URINE Negative Negative 05/26/2025 1:21 AM T [facility] METHADONE QUAL, URINE Negative Negative 05/26/2025 1:21 AM [facility] [facility] FENTANYL QUAL, URINE Negative Negative 05/26/2025 1:21 AM [facility] [facility] CREATININE, URINE 38.1(L) 40.0 - 278.0 mg/dL 05/26/2025 1:21 AM [facility] LABORATORY SERVICES [facility] Comment:Reference Range vari es with fluid intake and diet. Urine URINE SPECIMEN OBTAINED BY CLEAN CATCH PROCEDURE / Unknown Collection / Unknown 05/26/2025 12:43 AM CDT 05/26/2025 12:52 AM CDT [facility]ATORY SERVICES - [facility] - 05/26/2025 1:21 AM CDT This test is a qualitative screen. The presumptive positive results should not be used for legal purposes. If confirmation of results is desired, the lab must be contacted without delay. Drug Ref. Range Screening Threshold Amphetamines Negative 500 ng/mL Barbiturates Negative 200 ng/mL Benzodiazepines Negative 100 ng/mL Cannabinoids Negative 50 ng/mL Cocaine Negative 150 ng/mL Methadone Negative 300 ng/mL Opiates Negative 300 ng/mL Oxycodone Negative 100 ng/mL Phencyclidine Negative 25 ng/mL Fentanyl Negative 5 ng/mL Kenton Miguel MD URINE ORDERABLES Fin al Result Performing Organization Address [facility]/ZIP Co de Phone Number [facility] CLIA# [id number] [address] [place] [address] * (ABNORMAL) TROPONIN BASELINE, 5TH GEN (05/26/2025 12:02 AM CDT) TROPONIN T, BASELINE 5TH GEN 28(H) <=15 ng/L 05/26/2025 12:54 AM CDT [facility] Blood Venipuncture / Unknown 05/26/2025 12:02 AM CDT 05/26/2025 12:17 AM CDT Narrative [facility] - 05/26/2025 12:54 AM CDT Troponin elevated. Kenton Miguel MD CHEMISTRY ORDERABLES Final Result Performing Organization Address [facility]/ZIP Co de Phone Number [facility] CLIA# [id number] [address] [place] [address] * (ABNORMAL) CBC WITH DIFFERENTIAL (05/26/2025 12:02 AM CDT) WBC 3.3(L) 4.0 - 9.8 K/uL 05/26/2025 1:38 AM CDT [facility] RBC 3.57(L) 4.50 - 5.40 M/uL 05/26/2025 1:38 AM CDT [facility] HEMOGLOBIN 11.0(L) 13.6 - 16.5 g/dL 05/26/2025 1:38 AM CDT [facility] - [facility] HEMATOCRIT 32.0(L) 40.0 - 48.0 % 05/26/2025 1:38 AM CDT [facility] - [facility] MCV 89.6 82.0 - 99.0 fL 05/26/2025 1:38 AM CDT [facility] MCH 30.8 27.2 - 32.6 pg 05/26/2025 1:38 AM CDT [facility] - [facility] MCHC 34.4 31.5 - 35.5 g/dL 05/26/2025 1:38 AM CDT [facility] RDW 17.2(H) 11.5 - 14.5 % 05/26/2025 1:38 AM CDT [facility] - [facility] RDW-STDEV 56.8(H) 37.1 - 48.7 fL 05/26/2025 1:38 AM CDT [facility] - [facility] PLATELETS 70(L) 140 - 350 K/uL 05/26/2025 1:38 AM CDT [facility] Comment:Platelets verified b y smear review. MPV 10.8 9.3 - 12.4 fL 05/26/2025 1:38 AM CDT [facility] NEUTROPHILS 47 % 05/26/2025 1:38 AM CDT [facility] LYMPHOCYTES 33 % 05/26/2025 1:38 AM CDT [facility] - . [facility] MONOCYTES 16 % 05/26/2025 1:38 AM CDT [facility] - . [facility] EOSINOPHILS 4 % 05/26/2025 1:38 AM CDT [facility] - . [facility] BASOPHILS 0 % 05/26/2025 1:38 AM CDT [facility] IMMATURE GRANULOCYTES 0 % 05/26/2025 1:38 AM CDT [facility] NEUTROPHIL ABSOLUTE 1.52(L) 1.90 - 7.00 K/uL 05/26/2025 1:38 AM CDT [facility] LYMPHOCYTE ABSOLUTE 1.08 0.70 - 4.50 K/uL 05/26/2025 1:38 AM CDT [facility] LABORATORY [facility] MONOCYTE ABSOLUTE 0.52 0.10 - 1.30 K/uL 05/26/2025 1:38 AM CDT [facility] EOSINOPHIL ABSOLUTE 0.13 0.00 - 0.70 K/uL 05/26/2025 1:38 AM CDT [facility] BASOPHILS ABSOLUTE 0.01 0.00 - 0.20 K/uL 05/26/2025 1:38 AM CDT [facility] IMMATURE GRANULOCYTES ABSOLUTE 0.01 0.00 - 0.03 K/uL 05/26/2025 1:38 AM T [facility] Blood Venipuncture / Unknown 05/26/2025 12:02 AM CDT 05/26/2025 12:17 AM CDT Kenton Miguel MD HEMATOLOGY ORDERABLE S Final Result [facility]# [id number] [address] [place] [address] * (ABNORMAL) PTT (05/26/2025 12:02 AM CDT) PTT 36.6(H) 24.4 - 36.4 seconds 05/26/2025 12:41 AM CDT [facility] Comment: PTT Therapeutic Range: Heparin Level PTT (seconds) <0.10 units/mL <55.8 0.10 - 0.30 units/mL 55.8 - 74.3 0.30 - 0.70 units/mL* 74.3 - 111.2* 0.70 - 1.00 units/mL 111.2 - 138.9 *corresponds to therapeutic range for unfractionated heparin Blood Venipuncture / Unknown 05/26/2025 12:02 AM CDT 05/26/2025 12:17 AM CDT Kenton Miguel MD HEMATOLOGY ORDERABLE S Final Result [facility]# [id number] [address] [place] [address] * PHOSPHORUS (05/26/2025 12:02 AM CDT) PHOSPHORUS 2.9 2.5 - 4.5 mg/dL 05/26/2025 12:54 AM CDT [facility] Blood Venipuncture / Unknown 05/26/2025 12:02 AM CDT 05/26/2025 12:17 AM CDT Kenton Miguel MD CHEMISTRY ORDERABLES Final Result Performing Organization Address [facility] Co de Phone Number [facility]# [id number] [address] [place] [address] * (ABNORMAL) HEMOGLOBIN A1C (05/26/2025 12:02 AM CDT) Pathologist [facility] HEMOGLOBIN A1C 6.2(H) <5.7 % 05/26/2025 12:42 AM CDT [facility] EST. AVG GLUCOSE, A1C 131 mg/dL 05/26/2025 12:42 AM CDT [facility] Blood Venipuncture / Unknown 05/26/2025 12:02 AM CDT 05/26/2025 12:17 AM CDT Narrative [facility] - 05/26/2025 12:42 AM CDT HGB A1C INTERPRETATION NORMAL: <5.7% PRE-DIABETES: 5.7 - 6.4% DIABETES: 6.5% OR GREATER Kenton Miguel MD CHEMISTRY ORDERABLES Final Result [facility]# [id number] [address] [facility] [address] [address] * (ABNORMAL) LIPID PANEL (05/26/2025 12:02 AM CDT) [facility] CHOLESTEROL 91 <200 mg/dL 05/26/2025 12:54 AM [facility] [facility] TRIGLYCERIDE 106 <150 mg/dL 05/26/2025 12:54 AM [facility] [facility] HDL 28(L) 40 - 59 mg/dL 05/26/2025 12:54 AM [facility] LDL CALCULATED 42 <100 mg/dL 05/26/2025 12:54 AM [facility] [facility] NON-HDL CHOLESTEROL 63 <130 mg/dL 05/26/2025 12:54 AM [facility] [facility] Blood Venipuncture / Unknown 05/26/2025 12:02 AM T 05/26/2025 12:17 AM CDT [facility] LABORATORY [facility] - 05/26/2025 12:54 AM CDT TOTAL CHOLESTEROL mg/dL Desirable <200 Borderline high 200-239 High >=240 TRIGLYCERIDES mg/dL Normal <150 Borderline high 150-199 High 200-499 Very high >=500 HDL CHOLESTEROL mg/dL Low <40 Normal 40-59 Desirable >=60 NON HDL CHOLESTEROL mg/dL Optimal <130 Near Optimal 130-159 Borderline High 160-189 Very High >=190 CALCULATED LDL mg/dL LDL <70, OPTIMAL if have Atherosclerotic cardiovascular disease (ASCVD) or intermediate or higher (>7.5%) 10 year risk of ASCVD including most adults with diabetes. LDL <100, Optimal in adult patients with low (<7.5%) 10 year ASCVD risk LDL 100-160, Suboptimal LDL >160, High LDL >190, Very high LDL calculated using the Friedewald equation. ATPIII Guidelines Reference Ranges for Lipid Panels (NCEP/AMA) . 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 intubation): No Mechanical Ventilation (for respiratory distress) - Non-Invasive (i.e. BiPAP, CPAP): Yes
--- OUTSIDE RECORDS SUMMARY | 2025-07-01 10:09 | XMS_ITS | Encounter Summary ---
Author Organization [facility] Address [facility] [place] [address] Care Team Providers Care Nutrition Worker Name Role Phone Hakan Mccormick MD Primary Care Provider [phone] Encounter Details Date Type Department Care Team (Late Contact Info) Description 12/31/2019 Lab Requisition [facility] Care DermPath Lab [address] [place] [address] Remedios Hancock MD [address] [place] [address] Social History Tobacco Use Types Packs/Day Years Used Date Smoking Tobacco: Never Smokeless Tobacco: Never Alcohol Use Standard Drinks/Week Comments No 0 (1 standard drink = 0.6 oz pur e alcohol) Sex and Gender Information Value Date Recorded Sex Assigned at Not on file Legal Sex Male 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 MARKETING MANAGER Gender Identity Not on file Sexual Orientation Not on file documented as of this encounter Plan of Treatment Upcoming Encounters Date Type Department Care Team (Late Contact Info) Description 09/17/2025 2:00 PM EVENT MARKETING MANAGER Office Visit [facility] - Pulmonology [address] [place] [address] Michoacano Rodriguez MD [address] [place] [address] documented as of this encounter Procedures Procedure Name Priority Date/Time Associated Diagnosis Comments DERMATOPATHOLOGY Routine 12/30/2019 12:0 0 AM EVENT MARKETING MANAGER documented in this encounter Results * DERMATOPATHOLOGY (12/30/2019 12:00 AM EVENT MARKETING MANAGER) Case Report Dermatopathology Report Case: [id number] Authorizing Provider: Remedios Hancock MD Collected: 12/30/2019 12:00 AM Ordering Location: [facility] DermPath Lab Received: 12/31/2019 12:13 PM Pathologist: Matthew Damon MD Specimen: Skin, right forearm 0 3:57 PM EVENT MARKETING MANAGER DERMATOPATHOLOGY LABORATORY Final Diagnosis Specimen A. 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 0 3:57 PM [facility] DERMATOPATHOLOGY LABORATORY Gross Description Specimen A: Received is one formalin filled container labeled with the patient's name and designated right forearm. The specimen consists of a non-oriented ellipse of skin measuring 63t46h0 mm. The epidermal surface is unremarkable. The margin is inked green. The 12 o'clock and 6 o'clock tips are submitted in cassette 1. The remainder of the ellipse is serially sectioned and submitted in cassette 2-4. Jar 0. 0 3:57 PM [facility] DERMATOPATHOLOGY LABORATORY Microscopic Description Specimen A. SKIN, [...] extent of tumor involvement. 0 3:57 PM [facility] DERMATOPATHOLOGY LABORATORY Disclaimer An external and internal positive and negative controls are appropriate for the histochemical, immunohistochemical and immunofluorescence stain(s) in this case (if any), except where stated explicitly. The performance characteristics of the stain(s) cited in this report were developed and its performance characteristic determined by the Dermatopathology Laboratory at [facility], directed by Dr. Bridget Damon. These tests need not be, and therefore are not, approved by the [place] Food and Drug Administration. The tests are used for clinical purposes. Billing Codes Specimen Charges Stain Charges 82795 1 0 3:57 PM EVENT MARKETING MANAGER DERMATOPATHOLOGY LABORATORY Embedded Images 0 3:57 PM EVENT MARKETING MANAGER DERMATOPATHOLOGY LABORATORY Pathology/Cytolog y TISSUE SPECIMEN FROM SKIN / Unknown 12/30/2019 12/31/2019 12:13 PM EVENT MARKETING MANAGER Remedios Hancock MD LAB - PATHOLOGY/CYTOLOGY OR DERABLES Final Result DERMATOPATHOLOGY LABORATORY [facility] - Department of Dermatology [facility], 5th Floor Lab [address] [phone] documented in this encounter Visit Diagnoses Not on filedocumented in this encounter Care Teams Nutrition Worker Relationship Specialty Start Date End Date Hakan Mccormick MD PCP - General 04/24/11 documented as of this encounter
--- OUTSIDE RECORDS SUMMARY | 2025-07-01 10:09 | XMS_ITS | Encounter Summary ---
Author Organization [facility] Address [facility] [place] [address] Care Team Providers Care Stock Hanger Name Role Phone Hakan Mccormick MD Primary Care Provider [phone] Encounter Details Date Type Department Care Team (Late Contact Info) Description 03/24/2024 Lab Requisition [facility] - DermPath Lab [address] [facility] [place] [address] Gabriela Saunders MD [address] [place] [address] Social History Tobacco Use Types Packs/Day Years Used Date Smoking Tobacco: Never Smokeless Tobacco: Never Alcohol Use Standard Drinks/Week Comments No 0 (1 standard drink = 0.6 oz pur e alcohol) Sex and Gender Information Value Date Recorded Sex Assigned at Not on file 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 Sex 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 Gender Identity Not on file Sexual Orientation Not on file documented as of this encounter Plan of Treatment Upcoming Encounters Date Type Department Care Team (Late Contact Info) Description 09/17/2025 2:00 PM LABORER HIDE HOUSE Office Visit [facility] - Pulmonology [address] [facility] [place] [address] Michoacano Rodriguez MD [address] [place] [address] documented as of this encounter Procedures Procedure Name Priority Date/Time Associated Diagnosis Comments DERMATOPATHOLOGY Routine 03/24/2024 11:5 6 AM CDT documented in this encounter Results * DERMATOPATHOLOGY (03/24/2024 11:56 AM CDT) Case Report Dermatopathology Report Case: [id number] Authorizing Provider: Gabriela Saunders MD Collected: 03/24/2024 11:56 AM Ordering Location: [facility] - Received: 03/25/2024 08:24 AM DermPath Lab Pathologist: Lili Ellsworth MD Specimens: A) - Skin, left crown B) - Skin, left crown post 5:15 PM CDT DERMATOPATHOLOGY LABORATORY Final Diagnosis Specimen A. 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 The specimen consists of a shave biopsy measuring 02n05k5 mm. Jar 0+. Specimen B: Received is one formalin filled container labeled with the patient's name and designated left crown post. The specimen consists of a shave biopsy measuring 44i97j7 mm. Jar 0. 5:15 PM CDT DERMATOPATHOLOGY LABORATORY Microscopic Description [...] characteristic determined by the Dermatopathology Laboratory at [facility], directed by Dr. Bridget Damon. These tests need not be, and therefore are not, approved by the [place] Food and Drug Administration. The tests are used for clinical purposes. Billing Codes Specimen Charges Stain Charges 31347 05418 1 1 4 5:15 PM CDT DERMATOPATHOLOGY LABORATORY Embedded Images 4 5:15 PM CDT DERMATOPATHOLOGY LABORATORY Pathology/Cytology TISSUE SPECIMEN FROM SKIN / Unknown 03/24/2024 11:56 AM CDT 03/25/2024 8:24 AM CDT Miscellaneous samples (specimen) TISSUE SPECIMEN FROM SKIN / Unknown 03/24/2024 11:56 AM CDT 03/25/2024 8:24 AM CDT Gabriela Saunders MD LAB - PATHOLOGY/CYTOLOGY ORD ERABLES Final Result DERMATOPATHOLOGY LABORATORY [facility] - Department of Dermatology [facility] Medicine [address] [place] [address], [address] [phone] documented in this encounter Visit Diagnoses Not on filedocumented in this encounter Care Teams Stock Hanger Relationship Specialty Start Date End Date Hakan Mccormick MD PCP - General 04/24/11 documented as of this encounter
--- OUTSIDE RECORDS SUMMARY | 2025-07-01 10:09 | XMS_ITS | Encounter Summary ---
Author Organization [facility] Address [facility] [facility] [place] [address] Care Team Providers Care Vice Provost Name Role Phone Hakan Mccormick MD Primary Care Provider [phone] Encounter Details Date Type Department Care Team (Late Contact Info) Description 11/26/2019 Lab Requisition [facility] Care DermPath Lab [address] [place] [address] Gabriela Saunders MD [address] [place] [address] Social History Tobacco Use Types Packs/Day Years Used Date Smoking Tobacco: Never Smokeless Tobacco: Never Alcohol Use Standard Drinks/Week Comments No 0 (1 standard drink = 0.6 oz pur e alcohol) Sex and Gender Information Value Date Recorded Sex Assigned at Not on file Legal Sex Male 5:25 PM ORDER PICKER/ASSEMBLER Gender Identity Not on file Sexual Orientation Not on file documented as of this encounter Plan of Treatment Upcoming Encounters Date Type Department Care Team (Late Contact Info) Description 09/17/2025 2:00 PM ORDER PICKER/ASSEMBLER Office Visit [facility] - Pulmonology [address] [place] [address] Michoacano Rodriguez MD [address] [place] [address] documented as of this encounter Procedures Procedure Name Priority Date/Time Associated Diagnosis Comments DERMATOPATHOLOGY Routine 11/26/2019 12:0 0 AM ORDER PICKER/ASSEMBLER documented in this encounter Results * DERMATOPATHOLOGY (11/26/2019 12:00 AM ORDER PICKER/ASSEMBLER) Case Report Dermatopathology Report Case: [id number] Authorizing Provider: Gabriela Saunders MD Collected: 11/26/2019 12:00 AM Ordering Location: [facility] DermPath Lab Received: 11/26/2019 02:53 PM Pathologist: Matthew Damon MD Specimens: A) - Skin, right FA B) - Skin, right FA medial C) - Skin, right lat scalp D) - Skin, crown E) - Skin, crown ant 0 7:35 PM ORDER PICKER/ASSEMBLER DERMATOPATHOLOGY LABORATORY Final Diagnosis Specimen A. SKIN, [...] OVERLYING CUTANEOUS HORN (L85.8) 0 7:35 PM ORDER PICKER/ASSEMBLER DERMATOPATHOLOGY LABORATORY at [address] [facility] Clinical History A-E: BCC, SCC. 0 7:35 PM ORDER PICKER/ASSEMBLER DERMATOPATHOLOGY LABORATORY Gross Description Specimen A: Received is one formalin filled container labeled with the patient's name and designated right FA. The specimen consists of a shave measuring 59j0a8tj, bisected. Jar 0. Specimen B: Received is one formalin filled container labeled with the patient's name and designated right FA medial. The specimen consists of a shave measuring 53a0s6og. Jar 0. Specimen C: Received is one formalin filled container labeled with the patient's name and designated right lat scalp. The specimen consists of a shave measuring 75t38k6gk. Jar 0. Specimen D: Received is one formalin filled container labeled with the patient's name and designated crown. The specimen consists of a shave measuring 16b0n1rm. Jar 0. Specimen E: Received is one formalin filled container labeled with the patient's name and designated crown ant. The specimen consists of a shave measuring 97r47e4sn. Jar 0. 0 7:35 PM [facility] [...] levels, and dyskeratotic cells. 0 7:35 PM ORDER PICKER/ASSEMBLER DERMATOPATHOLOGY LABORATORY Disclaimer An external and internal positive and negative controls are appropriate for the histochemical, immunohistochemical and immunofluorescence stain(s) in this case (if any), except where stated explicitly. The performance characteristics of the stain(s) cited in this report were developed and its performance characteristic determined by the Dermatopathology Laboratory at [facility], directed by Dr. Bridget Damon. These tests need not be, and therefore are not, approved by the [place] Food and Drug Administration. The tests are used for clinical purposes. Billing Codes Specimen Charges Stain Charges 76233 57739 57407 44327 94667 1 1 1 1 1 12296 59916 56011 09968 31486 85634 1 1 1 1 1 1 0 7:35 PM ORDER PICKER/ASSEMBLER DERMATOPATHOLOGY LABORATORY Embedded Images 0 7:35 PM ORDER PICKER/ASSEMBLER DERMATOPATHOLOGY LABORATORY Pathology/Cytology TISSUE SPECIMEN FROM SKIN / Unknown 11/26/2019 11/26/2019 2:53 PM ORDER PICKER/ASSEMBLER Miscellaneous samples (specimen) TISSUE SPECIMEN FROM SKIN / Unknown 11/26/2019 11/26/2019 2:53 PM ORDER PICKER/ASSEMBLER Miscellaneous samples (specimen) TISSUE SPECIMEN FROM SKIN / Unknown 11/26/2019 11/26/2019 2:53 PM ORDER PICKER/ASSEMBLER Miscellaneous samples (specimen) TISSUE SPECIMEN FROM SKIN / Unknown 11/26/2019 11/26/2019 2:53 PM ORDER PICKER/ASSEMBLER Miscellaneous samples (specimen) TISSUE SPECIMEN FROM SKIN / Unknown 11/26/2019 11/26/2019 2:53 PM ORDER PICKER/ASSEMBLER Gabriela Saunders MD LAB - PATHOLOGY/CYTOLOGY ORD ERABLES Final Result DERMATOPATHOLOGY LABORATORY [facility] - Department of Dermatology [address] [place] [address] 5th [place] [address], [facility] [phone] documented in this encounter Visit Diagnoses Not on filedocumented in this encounter Care Teams Vice Provost Relationship Specialty Start Date End Date Hakan Mccormick MD PCP - General 04/24/11 documented as of this encounter
--- OUTSIDE RECORDS SUMMARY | 2025-07-01 10:09 | XMS_ITS | Encounter Summary ---
Author Organization [facility] Address [address] [facility] [place] [address] Care Team Providers Care Cloth Trimmer Hand Name Role Phone Hakan Mccormick MD Primary Care Provider [phone] Encounter Details Date Type Department Care Team (Late Contact Info) Description 07/03/2024 Lab Requisition [facility] - Pathology Lab [address] [place] [address] Sae Andrews MD [address] [facility] [address] [place] [address] Illness, unspecified Social History Tobacco Use Types Packs/Day Years Used Date Smoking Tobacco: Never Smokeless Tobacco: Never Alcohol Use Standard Drinks/Week Comments No 0 (1 standard drink = 0.6 oz pur e alcohol) Sex and Gender Information Value Date Recorded Sex Assigned at Not on file Legal Sex Male 5:25 PM TEST HOLE DRILLER Gender Identity Not on file Sexual Orientation Not on file documented as of this encounter Plan of Treatment Upcoming Encounters Date Type Department Care Team (Late Contact Info) Description 09/17/2025 2:00 PM TEST HOLE DRILLER Office Visit [facility] - Pulmonology [address] [facility] [place] [address] Michoacano Rodriguez MD [address] [place] [address] documented as of this encounter Procedures Procedure Name Priority Date/Time Associated Diagnosis Comments BONE MARROW BIOPSY (STL) Routine 07/02/2024 9:21 AM CDT Illness, unspecified documented in this encounter Results * BONE MARROW BIOPSY (STL) (07/02/2024 9:21 AM CDT) Case Report Bone Marrow Patholog y Report Case: [id number] Authorizing Provider: Sae Andrews Collected: 07/02/2024 09:21 AM MD Flako Ordering Location: [facility] - Received: 07/03/2024 01:16 PM Pathology Lab Pathologist: Noemi Alfonso MD Specimens: A) - Bone Marrow B) - Bone Marrow 07/03/2024 2:27 PM CDT U PATHOLOGY LAB Final Diagnosis Bone marrow, aspirate, clot section, and core biopsy: - Normocellular marrow with maturing trilineage hematopoiesis and mild dysgranulopoiesis - Decreased storage iron - No evidence of lymphoma or high-grade myeloid neoplasm - See description Peripheral blood smear: - Normochromic, normocytic anemia - Thrombocytopenia - See description 07/03/2024 2:27 PM CDT [facility] PATHOLOGY LAB at 1427 CDT AP Comment [...] cytogenetic/molecular testing is required. 07/03/2024 2:27 PM CDT [facility] PATHOLOGY LAB Peripheral Smear Description CBC Data: [...] decreased. Platelet morphology: normal. 07/03/2024 2:27 PM [facility] PATHOLOGY LAB Bone Marrow Aspirate Differential count [...] Control is appropriately reactive. 07/03/2024 2:27 PM [facility] PATHOLOGY LAB Bone Marrow Core Biopsy and [...] (by special stain): decreased. 07/03/2024 2:27 PM [facility] PATHOLOGY LAB Flow Cytometry Summary Concurrent flow cytometry ([id number]) shows no evidence of a monoclonal B-cell population or increase in blasts. 07/03/2024 2:27 PM [facility] PATHOLOGY LAB Clinical History 79 year old man with pancytopenia. 07/03/2024 2:27 PM [facility] PATHOLOGY LAB Materials Received Received are 19 slide and 3 blocks labeled [id number] along with a copy of the outside pathology report. [place] [address] . All original materials are returned to the referring institution, along with a copy of our final report. 07/03/2024 2:27 PM [facility] PATHOLOGY LAB Pathologist Location at [facility] 07/03/2024 2:27 PM CDT [facility] PATHOLOGY LAB Disclaimer The performance characteristics of all immunohistochemical and indirect immunofluorescence stains (if any) cited in this report were determined by the Histopathology Laboratory of [facility]. Some of these tests were developed [...] attending (teaching) pathologist. 07/03/2024 2:27 PM CDT [facility] PATHOLOGY LAB Embedded Images 07/03/2024 2:27 PM CDT [facility] PATHOLOGY LAB Pathology/Cytology BONE MARROW SPECIMEN / Unknown 07/02/2024 9:21 AM CDT 07/03/2024 1:16 PM CDT Miscellaneous samples (specimen) BONE MARROW SPECIMEN / Unknown 07/02/2024 9:21 AM CDT 07/03/2024 1:16 PM CDT Sae Andrews MD LAB - PATHOLOGY/CYT OLOGY ORDERABLES Final Result Performing Organization Address City/State/[facility] Co de Phone Number [facility] PATHOLOGY LAB [address] [phone] documented in this encounter Visit Diagnoses Diagnosis Illness, unspecified documented in this encounter Care Teams Cloth Trimmer Hand Relationship Specialty Start Date End Date Hakan Mccormick MD PCP - General 04/24/11 documented as of this encounter
--- OUTSIDE RECORDS SUMMARY | 2025-07-01 10:09 | XMS_ITS | Encounter Summary ---
Author Organization [facility] Address [facility] [facility] [place] [address] Care Team Providers Care Expanding Machine Operator Name Role Phone Hakan Mccormick MD Primary Care Provider [phone] Encounter Details Date Type Department Care Team (Late Contact Info) Description 08/16/2023 Lab Requisition [facility] - DermPath Lab [address] [facility] [place] [address] Gabriela Saunders MD [address] [place] [address] Social History Tobacco Use Types Packs/Day Years Used Date Smoking Tobacco: Never Smokeless Tobacco: Never Alcohol Use Standard Drinks/Week Comments No 0 (1 standard drink = 0.6 oz pur e alcohol) Sex and Gender Information Value Date Recorded Sex Assigned at Not on file Legal Sex Male 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 Gender Identity Not on file Sexual Orientation Not on file documented as of this encounter Plan of Treatment Upcoming Encounters Date Type Department Care Team (Late Contact Info) Description 09/17/2025 2:00 PM ROTOR CASTING MACHINE OPERATOR Office Visit [facility] - Pulmonology [address] [facility] [place] [address] Michoacano Rodriguez MD [address] [place] [address] documented as of this encounter Procedures Procedure Name Priority Date/Time Associated Diagnosis Comments DERMATOPATHOLOGY Routine 08/16/2023 3:33 AM CDT documented in this encounter Results * DERMATOPATHOLOGY (08/16/2023 3:33 AM CDT) Case Report Dermatopathology Report Case: [id number] Authorizing Provider: Gabriela Saunders MD Collected: 08/16/2023 03:33 AM Ordering Location: [facility] DermPath Lab Received: 08/20/2023 09:29 AM Pathologist: Lili Ellsworth MD Specimen: Skin, right med FA 6:07 PM CDT DERMATOPATHOLOGY LABORATORY Final Diagnosis Specimen A. 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 Jar 0. 3 6:07 PM CDT DERMATOPATHOLOGY LABORATORY Microscopic Description Specimen [...] oriented perpendicular to the skin surface. 3 6:07 PM CDT DERMATOPATHOLOGY LABORATORY Disclaimer An external and internal positive and negative controls are appropriate for the histochemical, immunohistochemical and immunofluorescence stain(s) in this case (if any), except where stated explicitly. The performance characteristics of the stain(s) cited in this report were developed and its performance characteristic determined by the Dermatopathology Laboratory at [facility], directed by Dr. Bridget Damon. These tests need not be, and therefore are not, approved by the [place] Food and Drug Administration. The tests are used for clinical purposes. Billing Codes Specimen Charges Stain Charges 96227 1 3 6:07 PM CDT DERMATOPATHOLOGY LABORATORY Embedded Images 3 6:07 PM CDT DERMATOPATHOLOGY LABORATORY Pathology/Cytolo gy TISSUE SPECIMEN FROM SKIN / Unknown 08/16/2023 3:33 AM CDT 08/20/2023 9:29 AM CDT Gabriela Saunders MD LAB - PATHOLOGY/CYTOLOGY ORD ERABLES Final Result DERMATOPATHOLOGY LABORATORY [facility] - Department of Dermatology [facility] Medicine [address] [place] [address], [address] [phone] documented in this encounter Visit Diagnoses Not on filedocumented in this encounter Care Teams Expanding Machine Operator Relationship Specialty Start Date End Date Hakan Mccormick MD PCP - General 04/24/11 documented as of this encounter
--- OUTSIDE RECORDS SUMMARY | 2025-07-01 10:09 | XMS_ITS | Encounter Summary ---
Author Organization [facility] Address [address] [facility] [place] [address] Care Team Providers Care Soft Sugar Supervisor Name Role Phone Hakan Mccormick MD Primary Care Provider [phone] Encounter Details Date Type Department Care Team (Late Contact Info) Description 07/02/2024 Lab Requisition [facility] - Pathology Lab [address] [place] [address] Sae Andrews MD [address] [facility] [address] [place] [address] Other pancytopenia Social History Tobacco Use Types Packs/Day Years Used Date Smoking Tobacco: Never Smokeless Tobacco: Never Alcohol Use Standard Drinks/Week Comments No 0 (1 standard drink = 0.6 oz pur e alcohol) Sex and Gender Information Value Date Recorded Sex Assigned at Not on file Legal Sex Male 5:25 PM HEALTH AND 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 TRAINER Gender Identity Not on file Sexual Orientation Not on file documented as of this encounter Plan of Treatment Upcoming Encounters Date Type Department Care Team (Late Contact Info) Description 09/17/2025 2:00 PM HEALTH AND SAFETY TRAINER Office Visit [facility] - Pulmonology [address] [facility] [place] [address] Michoacano Rodriguez MD [address] [place] [address] documented as of this encounter Procedures Procedure Name Priority Date/Time Associated Diagnosis Comments FLOW CYTOMETRY BONE MARROW Routine 07/02/2024 9:21 AM CDT Other pancytopenia (HCC) documented in this encounter Results * FLOW CYTOMETRY BONE MARROW (07/02/2024 9:21 AM CDT) Case Report Flow Cytometry Case: [id number] Authorizing Provider: Sae Andrews Collected: 07/02/2024 09:21 AM MD Flako Ordering Location: [facility] - Received: 07/02/2024 01:27 PM Pathology Lab Pathologist: Noemi Alfonso MD Specimen: Bone Marrow 07/02/2024 3:39 PM CDT [facility] PATH[facility]Y [facility] Final Diagnosis Bone marrow, flow cytometric immunophenotypic analysis: - No evidence of a monoclonal B-cell population or increase in blasts - See interpretation 07/02/2024 3:39 PM CDT U PATHOLOGY LAB at 1539 CDT Flow Cytometry Interpretation Viability: 91% B-cells: polytypic, kappa:lambda ratio 3.2:1 Blasts: 0.7% of events A bone marrow aspirate smear prepared from the flow cytometry specimen has been reviewed for quality control manager purposes. 07/02/2024 3:39 PM CDT [facility] PATHOLOGY LAB Flow Cytometry Results Differential Result Comment Flow Cell Count /uL 12,800 Total Viability % 91.0 Lymphocytes % 14 Dim CD45 Region % 3 Monocytes % 10 Granulocytes % 72 07/02/2024 3:39 PM CDT [facility] PATH[facility]Y LAB Reason for test Other pancytopenia (HCC) 284.19 07/02/2024 3:39 PM CDT U PATHOLOGY LAB Client Specimen ID # [id number] 07/02/2024 3:39 PM CDT [facility] PATHOLOGY LAB Number of markers 10 were performed. A-2 Flow CD10 A-3 Flow CD13 A-5 Flow CD20 A-1 Flow CD5 A-4 Flow CD19 A-6 Flow CD33 A-7 Flow CD34 A-8 Flow CD45 A-9 [place]+CD19+ A-10 Lambda+CD19+ 07/02/2024 3:39 PM CDT [facility] 07/02/2024 3:39 PM CDT [facility] PATHOLOGY LAB Disclaimer Test performed at [facility], [address] [place], [place], [address]. *The established laboratory minimum viability is 70%. [...] complexity clinical testing. 07/02/2024 3:39 PM CDT [facility] PATHOLOGY LAB Embedded Images 3:39 PM CDT [facility] PATHOLOGY LAB Pathology/Cytolo gy BONE MARROW SPECIMEN / Unknown 07/02/2024 9:21 AM CDT 07/02/2024 1:27 PM CDT Sae Andrews MD LAB - PATHOLOGY/CYT OLOGY ORDERABLES Final Result [facility] PATHOLOGY LAB [address] [facility] [place] [address], [facility] [phone] documented in this encounter Visit Diagnoses Diagnosis Other pancytopenia (HCC) Other pancytopenia documented in this encounter Care Teams Soft Sugar Supervisor Relationship Specialty Start Date End Date Hakan Mccormick MD PCP - General 04/24/11 documented as of this encounter
--- OUTSIDE RECORDS SUMMARY | 2025-07-01 10:10 | XMS_ITS | Encounter Summary ---
Author Organization [facility] Address [address] [place] [address] Phone Care Team Providers Care Skidder Operator Name Role Phone Hakan Mccormick MD Primary Care Provider [phone] Jeannie Noyola RN Unavailable [phone] Sunita Irizarry RN Unavailable [phone] Kellee Cedillo RN Unavailable [phone] Maria Esther Montemayor OT Unavailable Unavailable Mahesh Llamas MD Primary Care Provider [phone] Encounter Details Date Type Department Care Team (Late st Contact Info) Description 01/22/2018 Orders Only [facility] ProviderMikayla MD [facility] [place] [address] Social History Tobacco Use Types Packs/Day Years Used Date Smoking Tobacco: Never Smokeless Tobacco: Never Alcohol Use Standard Drinks/Week Comments No 0 (1 standard drink = 0.6 oz pur e alcohol) Sex and Gender Information Value Date Recorded Sex Assigned at Not on file Legal Sex Male 11:50 PM HOME CARE ASSISTANT Gender Identity Not on file Sexual Orientation [...] COVID: Suspected 10/11/2023 10/11/2023 10/11/2023 8:12 AM HOME CARE ASSISTANT COVID: Suspected 12/31/2024 12/31/2024 01/01/2025 12:13 AM HOME CARE ASSISTANT documented as of this encounter Care Teams Skidder Operator Relationship Specialty Start Date End Date Hakan Mccormick MD PCP - General 02/09/17 06/11/24 aMhesh Llamas MD [address] [place] [address] PCP - General Family Medicine 06/12/24 Jeannie Noyola RN [address] [facility] [address] [place] [address] Bolt Man 07/07/19 07/20/19 Suntia Irizarry RN [address] [facility] [address] [place] [address] Bolt Man 07/09/19 09/04/19 Kellee Cedillo RN [address] [phone] Bolt Man 12/05/21 12/29/21 Maria Esther Montemayor, OT Occupational Therapist Occupational Therapy 09/21/22 documented as of this encounter
--- OUTSIDE RECORDS SUMMARY | 2025-07-01 10:10 | XMS_ITS | Clinical Summary ---
Author Organization [facility] Address [address] 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 This disclosure is being madepursuant to the Care Everywhere program and may not contain all information available regarding this patient. Last updated 18.[facility] Allergies Active Allergy Reactions Criticality Noted Date Comments Contrast-Iodinated Agents For Ct/Other Nausea and/or Vomiting,Other High 05/01/2011 Vomiting and chest pain, Vomiting and chest pain, Vomiting and chest pain Medications * Be aware that medications may not be up to date on this document. Alwaysverify current medications with the patient. oxybutynin (DITROPAN) 5 MG tablet Take 1 (one) tablet by mouth once daily 7 Active metFORMIN (GLUCOPHAGE) 500 MG tablet Take 4 (four) tablets by mouth once daily 7 Active Aspirin 81 MG CAPS Take 81 mg by mouth once daily 5 Active atorvastatin (Lipitor) 80 MG tablet Take 1 (one) tablet by mouth every 24 hours 5 Active carvedilol (Coreg) 3.125 MG tablet Take 1 (one) tablet by mouth every 12 hours 5 Active potassium chloride ER (K-Tab) 20 MEQ tablet Take 2 (two) tablets by mouth once daily 5 Active torsemide (Demadex) 20 MG tablet Take 1 (one) tablet by mouth every 24 hours 5 Active Cobalamin Combinations (Foltrate) 500-1 MCG-MG Take 500 mcg by mouth once daily Active Nutritional Supplement LIQD Take 1 container by mouth 3 times daily Low Calorie High Protein Supplement Examples: Ensure High Protein/Boost High Protein/Premie r Protein High Calorie High Protein Supplement Examples: Ensure Enlive/Ensure Plus High Protein/Boost Plus/Equate Plus Diabetic Supplement Examples: Ensure High Protein/Glucer na/Boost Glucose Control/Entere x Diabetic Renal Supplement Examples: Nepro/Novosour ce Renal Clear Liquid Supplement Examples: Ensure Clear/Premier Protein Clear/Resource Boost Breeze/Prosour ce High Protein Gelatin Vegan or Milk Free Supplement Examples: Ensure Plant/Orgain 5 Active apixaban (Eliquis) 5 MG tablet Take 1 (one) tablet by mouth 2 times daily 5 Active sodium hypochlorite 0.125% (Dakins) 0.125 % SOLN 1/4 strength solutionIndicati ons:Stasis Dermatitis Apply to affected area every 12 hours Reasons: Stasis Dermatitis 5 Active ketoconazole (Nizoral) 2 % creamIndications :Intertrigo Apply to affected area 2 times daily Reasons: Intertrigo 5 Active triamcinolone acetonide (Kenalog) 0.1 % ointmentIndicati ons:Stasis Dermatitis Apply to affected area 2 times daily Reasons: Stasis Dermatitis 5 Active zinc oxide (Desitin) 40 % paste Apply to affected area as needed for Other 5 Active pantoprazole EC (Protonix) 40 MG tablet Take 1 (one) tablet by mouth once daily 5 Active fluorouracil (EFUDEX) 5 % cream 4 7 025 Discontin ued(List Clean-Up) dulaglutide (TRULICITY) 0.75 MG/0.5ML injection 7 025 Discontin ued(List Clean-Up) chlorthalidone (HYGROTON) 50 MG tablet Take 1 (one) tablet by mouth every Sunday, Sunday & Sunday 7 025 Discontin ued(List Clean-Up) ALPRAZolam (XANAX) 0.25 MG tablet Take by mouth. 7 025 Discontin ued(List Clean-Up) atorvastatin (Lipitor) 40 MG tablet Take 1 (one) tablet by mouth once daily 5 025 Discontin ued(Dose Adjustmen t) clopidogrel (Plavix) 75 MG tablet Take 1 (one) tablet by mouth every 24 hours 5 025 Discontin ued(Tx Complete) clotrimazole-bet amethasone (Lotrisone) 1-0.05 % cream Apply to affected area 2 times daily 5 025 Discontin ued(List Clean-Up) isosorbide dinitrate (Isordil) 30 MG tablet Take 3 (three) tablets by mouth once daily 5 025 Discontin ued(List Clean-Up) triamcinolone acetonide (Kenalog) 0.1 % cream Apply to affected area once daily 5 025 Discontin ued(Dose Adjustmen t) Torsemide 40 MG TABSIndications: Edema Take 40 mg by mouth once daily Reasons: Edema 025 Discontin ued(Dose Adjustmen t) Active Problems Problem Noted Date Diagnosed Date Moderate protein malnutrition 06/18/2025 Hyponatremia 06/14/2025 Assessment & Plan (06/27/2025 9:27 AM CDT): - Sodium 124 on 06/21/2025. Ranging from 123-129 from 06/13-06/20/2025; low 130s prior to 06/13. - Likely multifactorial from elevated glucose, cirrhosis, HFrEF, torsemide, poor oral intake, chronically low sodium. - Urine lytes 06/18 WNL. Plan: - Fluid restrict 1.5L - Nephrology consulted. Appreciate recs: -Please continue with fluid restriction -Recommend decreasing salt tabs to 1g daily -Please continue holding torsemide and chlorthalidone -Will continue to follow Assessment & Plan (2025 2:08 PM CDT): - Sodium 124 on 06/21/2025. Ranging from 123-129 from 06/13-06/20/2025; low 130s prior to 06/13. - Likely multifactorial from elevated glucose, cirrhosis, HFrEF, torsemide, poor oral intake, chronically low sodium. - Urine lytes 06/18 WNL. Plan: - Fluid restrict 1.5L - Nephrology consulted. Appreciate recs: -Please continue with fluid restriction -Recommend decreasing salt tabs to 1g daily -Please continue holding torsemide and chlorthalidone -Will continue to follow Assessment & Plan (06/25/2025 2:14 PM CDT): - Sodium 124 on 06/21/2025. Ranging from 123-129 from 06/13-06/20/2025; low 130s prior to 06/13. - Likely multifactorial from elevated glucose, cirrhosis, HFrEF, torsemide, poor oral intake, chronically low sodium. - Urine lytes 06/18 WNL. Plan: - Fluid restrict 1.5L - Nephrology consulted. Appreciate recs: -Please continue with fluid restriction -Recommend decreasing salt tabs to 1g daily -Please continue holding torsemide and chlorthalidone -Will continue to follow Assessment & Plan (06/24/2025 7:59 AM CDT): - Sodium 124 on 06/21/2025. Ranging from 123-129 from 06/13-06/20/2025; low 130s prior to 06/13. - Likely multifactorial from elevated glucose, cirrhosis, HFrEF, torsemide, poor oral intake, chronically low sodium. - Urine lytes 06/18 WNL. Plan: - Fluid restrict 1.5L - Nephrology consulted. Appreciate recs: -Please continue with fluid restriction -Recommend decreasing salt tabs to 1g daily -Please continue holding torsemide and chlorthalidone -Will continue to follow Assessment & Plan (06/23/2025 7:56 PM CDT): - Sodium 124 on 06/21/2025. Ranging from 123-129 from 06/13-06/20/2025; low 130s prior to 06/13. - Likely multifactorial from elevated glucose, cirrhosis, HFrEF, torsemide, poor oral intake, chronically low sodium. - Urine lytes 06/18 WNL. Plan: - Fluid restrict 1.5L - Nephrology consulted. Appreciate recs: -Please continue with fluid restriction -Recommend decreasing salt tabs to 1g daily -Please continue holding torsemide and chlorthalidone -Will continue to follow Assessment & Plan (06/22/2025 3:55 PM CDT): - Sodium 124 on 06/21/2025. Ranging from 123-129 from 06/13-06/20/2025; low 130s prior to 06/13. - Likely multifactorial from elevated glucose, cirrhosis, HFrEF, torsemide, poor oral intake, chronically low sodium. - Urine lytes 06/18 WNL. Plan: - Fluid restrict 1.5L - Nephrology consulted. Appreciate recs: -Please continue with fluid restriction -Recommend decreasing salt tabs to 1g daily -Please continue holding torsemide and chlorthalidone -Will continue to follow Assessment & Plan (06/21/2025 12:01 PM CDT): - Sodium 124 on 06/21/2025. Ranging from 123-129 from 06/13-06/20/2025; low 130s prior to 06/13. - Likely multifactorial from elevated glucose, cirrhosis, HFrEF, torsemide, poor oral intake, chronically low sodium. - Urine lytes 06/18 WNL. Plan: - Fluid restrict 1.5L - Nephrology consulted. Appreciate recs: - Please obtain TSH and morning cortisol in a.m. - Please give normal saline 500 cc IV bolus and repeat sodium 4-6 hours after the treatment is completed - Please continue holding torsemide and chlorthalidone - Continue with salt tablets 1q BID, if no improvement on recheck please switch to 1g TID - Recommend rechecking serum osm, urine osm, urine Na Assessment & Plan (06/20/2025 2:13 PM CDT): - Sodium 128 on 06/20/2025. Ranging from 123-129 from 06/13-06/19/2025; low 130s prior to 06/13. - Likely multifactorial from elevated glucose, cirrhosis, HFrEF, torsemide, poor oral intake, chronically low sodium. - Urine lytes 06/18 WNL. Plan: - Fluid restrict 1.5L - Nephrology consulted. Appreciate recs: -Please obtain TSH and morning cortisol in a.m. -Please give normal saline 500 cc IV bolus and repeat sodium 4-6 hours after the treatment is completed -Please continue holding torsemide and chlorthalidone Assessment & Plan (06/19/2025 2:39 PM CDT): - Sodium 123 on 06/19/2025. Ranging from 125-129 from 06/13-06/18/2025; low 130s prior to 06/13. - Likely multifactorial from elevated glucose, cirrhosis, HFrEF, torsemide, poor oral intake, chronically low sodium. - Urine lytes 06/18 WNL. Plan: - Fluid restrict 1.5L - 500mL bolus NS Assessment & Plan (06/18/2025 2:17 PM CDT): - Sodium 125 on 06/18/2025. Ranging from 126-129 from 06/13-06/17/2025; low 130s prior to 06/13. - Likely multifactorial from elevated glucose, cirrhosis, HFrEF, torsemide, poor oral intake, chronically low sodium. - Urine lytes 06/18 WNL. Plan: - Fluid restrict 1.5L Assessment & Plan (06/17/2025 3:41 PM CDT): - Sodium 126 on 06/17/2025. Ranging from 128-129 from 06/13-06/16/2025; low 130s prior to 06/13. - Likely multifactorial from elevated glucose, cirrhosis, torsemide, poor oral intake, chronically low sodium. Plan: - Ordered urine lytes - torsemide held Assessment & Plan (06/16/2025 6:55 PM CDT): Plan: - osmolality urine - sodium urine random Assessment & Plan (06/15/2025 4:12 PM CDT): Plan: - osmolality urine - sodium urine random Assessment & Plan (06/14/2025 10:16 AM CDT): Plan: - osmolality urine - sodium urine random DVT (deep venous thrombosis) 06/12/2025 Assessment & Plan (06/27/2025 11:55 AM CDT): - CT angio 06/09/2025: Acute pulmonary emboli in the distal right pulmonary artery, and segmental and subsegmental arteries supplying the right upper lobe. - VAS Bilateral venous duplex LE 06/11/2025 revealed occlusive DVT in the veins of right lower extremity. - Previously on heparin gtt which was transitioned to eliquis 10mg bid. - In the setting of anemia needing RBC transfusion on 06/15/2025, the PM dose of eliquis 10mg was held. Eliquis 5mg BID started 06/16/2025 AM. Aspirin and Eliquis held again on 06/19/2025 for suspected GI bleed needing transfusion. - DVT/PE likely from immobility for the past several months + intravascular damage from septic shock 2/2 bilateral LE cellulitis treated at [facility] 05/03-05/08/2025. Plan: - 06/22/2025: Hold eliquis until work-up for GI bleed with EGD on 06/22. Planning for 3-6 months of eliquis 5mg overall. 06/25/2025: Apixaban 5 mg and Aspirin 81 mg restarted. 2025: Patient is monitored for another day post resumption of anticoagulation. 06/27/2025: Patient's condition has been stable post anticoagulation resumption. His hemoglobin levels improved spontaneously. After closely monitoring his condition over the last 48 hours he has been discharged to his nursing facility. He has been continued on his apixaban 5 mg, aspirin 81 mg, carvediolol 3.125 mg, and atorvastatin 80 mg following discharge. Assessment & Plan (2025 2:08 PM CDT): - CT angio 06/09/2025: Acute pulmonary emboli in the distal right pulmonary artery, and segmental and subsegmental arteries supplying the right upper lobe. - VAS Bilateral venous duplex LE 06/11/2025 revealed occlusive DVT in the veins of right lower extremity. - Previously on heparin gtt which was transitioned to eliquis 10mg bid. - In the setting of anemia needing RBC transfusion on 06/15/2025, the PM dose of eliquis 10mg was held. Eliquis 5mg BID started 06/16/2025 AM. Aspirin and Eliquis held again on 06/19/2025 for suspected GI bleed needing transfusion. - DVT/PE likely from immobility for the past several months + intravascular damage from septic shock 2/2 bilateral LE cellulitis treated at [facility] 05/03-05/08/2025. Plan: - Hold eliquis until work-up for GI bleed with EGD on 06/22. Planning for 3-6 months of eliquis 5mg overall. 06/25/2025: Apixaban 5 mg and Aspirin 81 mg restarted. 2025: Patient is monitored for another day post resumption of anticoagulation. Assessment & Plan (06/25/2025 1:59 PM CDT): - CT angio 06/09/2025: Acute pulmonary emboli in the distal right pulmonary artery, and segmental and subsegmental arteries supplying the right upper lobe. - VAS Bilateral venous duplex LE 06/11/2025 revealed occlusive DVT in the veins of right lower extremity. - Previously on heparin gtt which was transitioned to eliquis 10mg bid. - In the setting of anemia needing RBC transfusion on 06/15/2025, the PM dose of eliquis 10mg was held. Eliquis 5mg BID started 06/16/2025 AM. Aspirin and Eliquis held again on 06/19/2025 for suspected GI bleed needing transfusion. - DVT/PE likely from immobility for the past several months + intravascular damage from septic shock 2/2 bilateral LE cellulitis treated at [facility] 05/03-05/08/2025. Plan: - Hold eliquis until work-up for GI bleed with EGD on 06/22. Planning for 3-6 months of eliquis 5mg overall. 06/25/2025: Apixaban 5 mg and Aspirin 81 mg restarted. Assessment & Plan (06/24/2025 7:59 AM CDT): - CT angio 06/09/2025: Acute pulmonary emboli in the distal right pulmonary artery, and segmental and subsegmental arteries supplying the right upper lobe. - VAS Bilateral venous duplex LE 06/11/2025 revealed occlusive DVT in the veins of right lower extremity. - Previously on heparin gtt which was transitioned to eliquis 10mg bid. - In the setting of anemia needing RBC transfusion on 06/15/2025, the PM dose of eliquis 10mg was held. Eliquis 5mg BID started 06/16/2025 AM. Aspirin and Eliquis held again on 06/19/2025 for suspected GI bleed needing transfusion. - DVT/PE likely from immobility for the past several months + intravascular damage from septic shock 2/2 bilateral LE cellulitis treated at [facility] 05/03-05/08/2025. Plan: - Hold eliquis until work-up for GI bleed with EGD on 06/22. Planning for 3-6 months of eliquis 5mg overall. Assessment & Plan (06/23/2025 7:56 PM CDT): - CT angio 06/09/2025: Acute pulmonary emboli in the distal right pulmonary artery, and segmental and subsegmental arteries supplying the right upper lobe. - VAS Bilateral venous duplex LE 06/11/2025 revealed occlusive DVT in the veins of right lower extremity. - Previously on heparin gtt which was transitioned to eliquis 10mg bid. - In the setting of anemia needing RBC transfusion on 06/15/2025, the PM dose of eliquis 10mg was held. Eliquis 5mg BID started 06/16/2025 AM. Aspirin and Eliquis held again on 06/19/2025 for suspected GI bleed needing transfusion. - DVT/PE likely from immobility for the past several months + intravascular damage from septic shock 2/2 bilateral LE cellulitis treated at [facility] 05/03-05/08/2025. Plan: - Hold eliquis until work-up for GI bleed with EGD on 06/22. Planning for 3-6 months of eliquis 5mg overall. Assessment & Plan (06/22/2025 3:37 PM CDT): - CT angio 06/09/2025: Acute pulmonary emboli in the distal right pulmonary artery, and segmental and subsegmental arteries supplying the right upper lobe. - VAS Bilateral venous duplex LE 06/11/2025. - Previously on heparin gtt which was transitioned to eliquis 10mg bid. - In the setting of anemia needing RBC transfusion on 06/15, the PM dose of eliquis 10mg was held. Eliquis 5mg BID started 8/5 AM. Eliquis held again on 06/19 for suspected GI bleed needing transfusion. - DVT/PE likely from immobility for the past several months + intravascular damage from septic shock 2/2 bilateral LE cellulitis treated at [facility] 05/03-05/08/2025. Plan: - Hold eliquis until work-up for GI bleed with EGD on 06/22. Planning for 3-6 months of eliquis 5mg overall. Assessment & Plan (06/21/2025 12:01 PM CDT): - CT angio 06/09/2025: Acute pulmonary emboli in the distal right pulmonary artery, and segmental and subsegmental arteries supplying the right upper lobe. - VAS Bilateral venous duplex LE 06/11/2025. - Previously on heparin gtt which was transitioned to eliquis 10mg bid. - In the setting of anemia needing RBC transfusion on 06/15, the PM dose of eliquis 10mg was held. Eliquis 5mg BID started 8/5 AM. Eliquis held again on 06/19 for suspected GI bleed needing transfusion. - DVT/PE likely from immobility for the past several months + intravascular damage from septic shock 2/2 bilateral LE cellulitis treated at [facility] 05/03-05/08/2025. Plan: - Hold eliquis until work-up for GI bleed with EGD on 06/22. Planning for 3-6 months of eliquis 5mg overall. Assessment & Plan (06/20/2025 2:13 PM CDT): - CT angio 06/09/2025: Acute pulmonary emboli in the distal right pulmonary artery, and segmental and subsegmental arteries supplying the right upper lobe. - VAS Bilateral venous duplex LE 06/11/2025. - Previously on heparin gtt which was transitioned to eliquis 10mg bid. - In the setting of anemia needing RBC transfusion on 06/15, the PM dose of eliquis 10mg was held. Eliquis 5mg BID started 8/5 AM. - DVT/PE likely from immobility for the past several months + intravascular damage from septic shock 2/2 bilateral LE cellulitis treated at [facility] 05/03-05/08/2025. Plan: - Hold eliquis until work-up for GI bleed completed 06/22. Planning for 3-6 months of eliquis 5mg overall. Assessment & Plan (06/19/2025 2:39 PM CDT): - CT angio 06/09/2025: Acute pulmonary emboli in the distal right pulmonary artery, and segmental and subsegmental arteries supplying the right upper lobe. - VAS Bilateral venous duplex LE 06/11/2025. - Previously on heparin gtt which was transitioned to eliquis 10mg bid. - In the setting of anemia needing RBC transfusion on 06/15, the PM dose of eliquis 10mg was held. Eliquis 5mg BID started 8/5 AM. - DVT/PE likely from immobility for the past several months + intravascular damage from septic shock 2/2 bilateral LE cellulitis treated at [facility] 05/03-05/08/2025. Plan: - Continue Eliquis 5mg BID following discussion with pharmacy for 3-6 months. Final duration to be discussed in pulmonary clinic follow up. Assessment & Plan (06/18/2025 2:17 PM CDT): - CT angio 06/09/2025: Acute pulmonary emboli in the distal right pulmonary artery, and segmental and subsegmental arteries supplying the right upper lobe. - VAS Bilateral venous duplex LE 06/11/2025. - Previously on heparin gtt which was transitioned to eliquis 10mg bid. - In the setting of anemia needing RBC transfusion on 06/15, the PM dose of eliquis 10mg was held. Eliquis 5mg BID started 8/5 AM. - DVT/PE likely from immobility for the past several months + intravascular damage from septic shock 2/2 bilateral LE cellulitis treated at [facility] 05/03-05/08/2025. Plan: - Continue Eliquis 5mg BID following discussion with pharmacy for 3-6 months. Final duration to be discussed in pulmonary clinic follow up. Assessment & Plan (06/17/2025 3:41 PM CDT): - CT angio 06/09/2025: Acute pulmonary emboli in the distal right pulmonary artery, and segmental and subsegmental arteries supplying the right upper lobe. - VAS Bilateral venous duplex LE 06/11/2025. - Previously on heparin gtt which was transitioned to eliquis 10mg bid. - In the setting of anemia needing RBC transfusion on 06/15, the PM dose of eliquis 10mg was held. Plan: - Eliquis resumed at 5mg BID following discussion with pharmacy. - Continue Eliquis 5 mg bid for 3-6 months. Final duration to be discussed in pulmonary clinic follow up. Assessment & Plan (06/16/2025 6:55 PM CDT): - CT angio 06/09/2025: Acute pulmonary emboli in the distal right pulmonary artery, and segmental and subsegmental arteries supplying the right upper lobe. - VAS Bilateral venous duplex LE 06/11/2025. - Previously on heparin gtt which was transitioned to eliquis 10mg bid. - In the setting of anemia needing RBC transfusion on 06/15, the PM dose of eliquis 10mg was held. Plan: - Eliquis resumed at 5mg BID following discussion with pharmacy. - Continue Eliquis 5 mg bid for 3-6 months. Final duration to be discussed in pulmonary clinic follow up. Assessment & Plan (06/15/2025 4:43 PM CDT): - CT angio 06/09/2025: Acute pulmonary emboli in the distal right pulmonary artery, and segmental and subsegmental arteries supplying the right upper lobe. - VAS Bilateral venous duplex LE 06/11/2025. - Previously on heparin gtt which was transitioned to eliquis 10mg bid. Plan: - In the setting of anemia needing RBC transfusion on 06/15, the PM dose of eliquis 10mg was held. Will restart eliquis tomorrow at reduced dose (5mg) following discussion with pharmacy. - Continue Eliquis 5 mg bid for at least 3-6 months. Final duration to be discussed in pulmonary clinic follow up. Assessment & Plan (06/14/2025 7:10 AM CDT): Transition from heparin gtt to eliquis 10 bid for 7 days following by 5 mg bid for at least 3-6 months. Final duration to be discussed in pulmonary clinic follow up Echo done Plan: -continue apixaban (Eliquis) tablet 10 mg BID Assessment & Plan (06/13/2025 7:50 AM CDT): Transition from heparin gtt to eliquis 10 bid for 7 days following by 5 mg bid for at least 3-6 months. Final duration to be discussed in pulmonary clinic follow up Echo done Plan: -continue apixaban (Eliquis) tablet 10 mg BID Assessment & Plan (06/12/2025 1:22 PM CDT): Transition from heparin gtt to eliquis 10 bid for 7 days following by 5 mg bid for at least 3-6 months. Final duration to be discussed in pulmonary clinic follow up Echo done Plan: -continue apixaban (Eliquis) tablet 10 mg BID Other acute pulmonary embolism without acute cor pulmonale 06/09/2025 Assessment & Plan (06/27/2025 11:55 AM CDT): - CT angio 06/09/2025: Acute pulmonary emboli in the distal right pulmonary artery, and segmental and subsegmental arteries supplying the right upper lobe. - VAS Bilateral venous duplex LE 06/11/2025 revealed occlusive DVT in the veins of right lower extremity. - Previously on heparin gtt which was transitioned to eliquis 10mg bid. - In the setting of anemia needing RBC transfusion on 06/15/2025, the PM dose of eliquis 10mg was held. Eliquis 5mg BID started 06/16/2025 AM. Aspirin and Eliquis held again on 06/19/2025 for suspected GI bleed needing transfusion. - DVT/PE likely from immobility for the past several months + intravascular damage from septic shock 2/2 bilateral LE cellulitis treated at [facility] 05/03-05/08/2025. Plan: - 06/22/2025: Hold eliquis until work-up for GI bleed with EGD on 06/22. Planning for 3-6 months of eliquis 5mg overall. 06/25/2025: Apixaban 5 mg and Aspirin 81 mg restarted. 2025: Patient is monitored for another day post resumption of anticoagulation. 06/27/2025: Patient's condition has been stable post anticoagulation resumption. His hemoglobin levels improved spontaneously. After closely monitoring his condition over the last 48 hours he has been discharged to his nursing facility. He has been continued on his apixaban 5 mg, aspirin 81 mg, carvediolol 3.125 mg, and atorvastatin 80 mg following discharge. Assessment & Plan (2025 2:08 PM CDT): - CT angio 06/09/2025: Acute pulmonary emboli in the distal right pulmonary artery, and segmental and subsegmental arteries supplying the right upper lobe. - VAS Bilateral venous duplex LE 06/11/2025 revealed occlusive DVT in the veins of right lower extremity. - Previously on heparin gtt which was transitioned to eliquis 10mg bid. - In the setting of anemia needing RBC transfusion on 06/15/2025, the PM dose of eliquis 10mg was held. Eliquis 5mg BID started 06/16/2025 AM. Aspirin and Eliquis held again on 06/19/2025 for suspected GI bleed needing transfusion. - DVT/PE likely from immobility for the past several months + intravascular damage from septic shock 2/2 bilateral LE cellulitis treated at [facility] 05/03-05/08/2025. Plan: - Hold eliquis until work-up for GI bleed with EGD on 06/22. Planning for 3-6 months of eliquis 5mg overall. 06/25/2025: Apixaban 5 mg and Aspirin 81 mg restarted. 2025: Patient is monitored for another day post resumption of anticoagulation. Assessment & Plan (06/25/2025 1:59 PM CDT): - CT angio 06/09/2025: Acute pulmonary emboli in the distal right pulmonary artery, and segmental and subsegmental arteries supplying the right upper lobe. - VAS Bilateral venous duplex LE 06/11/2025 revealed occlusive DVT in the veins of right lower extremity. - Previously on heparin gtt which was transitioned to eliquis 10mg bid. - In the setting of anemia needing RBC transfusion on 06/15/2025, the PM dose of eliquis 10mg was held. Eliquis 5mg BID started 06/16/2025 AM. Aspirin and Eliquis held again on 06/19/2025 for suspected GI bleed needing transfusion. - DVT/PE likely from immobility for the past several months + intravascular damage from septic shock 2/2 bilateral LE cellulitis treated at [facility] 05/03-05/08/2025. Plan: - Hold eliquis until work-up for GI bleed with EGD on 06/22. Planning for 3-6 months of eliquis 5mg overall. 06/25/2025: Apixaban 5 mg and Aspirin 81 mg restarted. Assessment & Plan (06/24/2025 7:59 AM CDT): - CT angio 06/09/2025: Acute pulmonary emboli in the distal right pulmonary artery, and segmental and subsegmental arteries supplying the right upper lobe. - VAS Bilateral venous duplex LE 06/11/2025 revealed occlusive DVT in the veins of right lower extremity. - Previously on heparin gtt which was transitioned to eliquis 10mg bid. - In the setting of anemia needing RBC transfusion on 06/15/2025, the PM dose of eliquis 10mg was held. Eliquis 5mg BID started 06/16/2025 AM. Aspirin and Eliquis held again on 06/19/2025 for suspected GI bleed needing transfusion. - DVT/PE likely from immobility for the past several months + intravascular damage from septic shock 2/2 bilateral LE cellulitis treated at [facility] 05/03-05/08/2025. Plan: - Hold eliquis until work-up for GI bleed with EGD on 06/22. Planning for 3-6 months of eliquis 5mg overall. Assessment & Plan (06/23/2025 7:56 PM CDT): - CT angio 06/09/2025: Acute pulmonary emboli in the distal right pulmonary artery, and segmental and subsegmental arteries supplying the right upper lobe. - VAS Bilateral venous duplex LE 06/11/2025 revealed occlusive DVT in the veins of right lower extremity. - Previously on heparin gtt which was transitioned to eliquis 10mg bid. - In the setting of anemia needing RBC transfusion on 06/15/2025, the PM dose of eliquis 10mg was held. Eliquis 5mg BID started 06/16/2025 AM. Aspirin and Eliquis held again on 06/19/2025 for suspected GI bleed needing transfusion. - DVT/PE likely from immobility for the past several months + intravascular damage from septic shock 2/2 bilateral LE cellulitis treated at [facility] 05/03-05/08/2025. Plan: - Hold eliquis until work-up for GI bleed with EGD on 06/22. Planning for 3-6 months of eliquis 5mg overall. Assessment & Plan (06/22/2025 3:37 PM CDT): - CT angio 06/09/2025: Acute pulmonary emboli in the distal right pulmonary artery, and segmental and subsegmental arteries supplying the right upper lobe. - VAS Bilateral venous duplex LE 06/11/2025. - Previously on heparin gtt which was transitioned to eliquis 10mg bid. - In the setting of anemia needing RBC transfusion on 06/15, the PM dose of eliquis 10mg was held. Eliquis 5mg BID started 06/16 AM. Eliquis held again on 06/19 for suspected GI bleed needing transfusion. - DVT/PE likely from immobility for the past several months + intravascular damage from septic shock 2/2 bilateral LE cellulitis treated at [facility] 05/03-05/08/2025. Plan: - Hold eliquis until work-up for GI bleed with EGD on 06/22. Planning for 3-6 months of eliquis 5mg overall. Assessment & Plan (06/21/2025 12:01 PM CDT): - CT angio 06/09/2025: Acute pulmonary emboli in the distal right pulmonary artery, and segmental and subsegmental arteries supplying the right upper lobe. - VAS Bilateral venous duplex LE 06/11/2025. - Previously on heparin gtt which was transitioned to eliquis 10mg bid. - In the setting of anemia needing RBC transfusion on 06/15, the PM dose of eliquis 10mg was held. Eliquis 5mg BID started 8/5 AM. Eliquis held again on 06/19 for suspected GI bleed needing transfusion. - DVT/PE likely from immobility for the past several months + intravascular damage from septic shock 2/2 bilateral LE cellulitis treated at [facility] 05/03-05/08/2025. Plan: - Hold eliquis until work-up for GI bleed with EGD on 06/22. Planning for 3-6 months of eliquis 5mg overall. Assessment & Plan (06/20/2025 2:13 PM CDT): - CT angio 06/09/2025: Acute pulmonary emboli in the distal right pulmonary artery, and segmental and subsegmental arteries supplying the right upper lobe. - VAS Bilateral venous duplex LE 06/11/2025. - Previously on heparin gtt which was transitioned to eliquis 10mg bid. - In the setting of anemia needing RBC transfusion on 06/15, the PM dose of eliquis 10mg was held. Eliquis 5mg BID started 8/5 AM. - DVT/PE likely from immobility for the past several months + intravascular damage from septic shock 2/2 bilateral LE cellulitis treated at [facility] 05/03-05/08/2025. Plan: - Hold eliquis until work-up for GI bleed completed 06/22. Planning for 3-6 months of eliquis 5mg overall. Assessment & Plan (06/19/2025 2:39 PM CDT): - CT angio 06/09/2025: Acute pulmonary emboli in the distal right pulmonary artery, and segmental and subsegmental arteries supplying the right upper lobe. - VAS Bilateral venous duplex LE 06/11/2025. - Previously on heparin gtt which was transitioned to eliquis 10mg bid. - In the setting of anemia needing RBC transfusion on 06/15, the PM dose of eliquis 10mg was held. Eliquis 5mg BID started 8/5 AM. - DVT/PE likely from immobility for the past several months + intravascular damage from septic shock 2/2 bilateral LE cellulitis treated at [facility] 05/03-05/08/2025. Plan: - Continue Eliquis 5mg BID following discussion with pharmacy for 3-6 months. Final duration to be discussed in pulmonary clinic follow up. Assessment & Plan (06/18/2025 2:17 PM CDT): - CT angio 06/09/2025: Acute pulmonary emboli in the distal right pulmonary artery, and segmental and subsegmental arteries supplying the right upper lobe. - VAS Bilateral venous duplex LE 06/11/2025. - Previously on heparin gtt which was transitioned to eliquis 10mg bid. - In the setting of anemia needing RBC transfusion on 06/15, the PM dose of eliquis 10mg was held. Eliquis 5mg BID started 8/5 AM. - DVT/PE likely from immobility for the past several months + intravascular damage from septic shock 2/2 bilateral LE cellulitis treated at [facility] 05/03-05/08/2025. Plan: - Continue Eliquis 5mg BID following discussion with pharmacy for 3-6 months. Final duration to be discussed in pulmonary clinic follow up. Assessment & Plan (06/17/2025 3:41 PM CDT): - CT angio 06/09/2025: Acute pulmonary emboli in the distal right pulmonary artery, and segmental and subsegmental arteries supplying the right upper lobe. - VAS Bilateral venous duplex LE 06/11/2025. - Previously on heparin gtt which was transitioned to eliquis 10mg bid. - In the setting of anemia needing RBC transfusion on 06/15, the PM dose of eliquis 10mg was held. Plan: - Eliquis resumed at 5mg BID following discussion with pharmacy. - Continue Eliquis 5 mg bid for 3-6 months. Final duration to be discussed in pulmonary clinic follow up. Assessment & Plan (06/16/2025 6:55 PM CDT): - CT angio 06/09/2025: Acute pulmonary emboli in the distal right pulmonary artery, and segmental and subsegmental arteries supplying the right upper lobe. - VAS Bilateral venous duplex LE 06/11/2025. - Previously on heparin gtt which was transitioned to eliquis 10mg bid. - In the setting of anemia needing RBC transfusion on 06/15, the PM dose of eliquis 10mg was held. Plan: - Eliquis resumed at 5mg BID following discussion with pharmacy. - Continue Eliquis 5 mg bid for 3-6 months. Final duration to be discussed in pulmonary clinic follow up. Assessment & Plan (06/15/2025 4:43 PM CDT): - CT angio 06/09/2025: Acute pulmonary emboli in the distal right pulmonary artery, and segmental and subsegmental arteries supplying the right upper lobe. - VAS Bilateral venous duplex LE 06/11/2025. - Previously on heparin gtt which was transitioned to eliquis 10mg bid. Plan: - In the setting of anemia needing RBC transfusion on 06/15, the PM dose of eliquis 10mg was held. Will restart eliquis tomorrow at reduced dose (5mg) following discussion with pharmacy. - Continue Eliquis 5 mg bid for at least 3-6 months. Final duration to be discussed in pulmonary clinic follow up. Assessment & Plan (06/14/2025 7:10 AM CDT): Transition from heparin gtt to eliquis 10 bid for 7 days following by 5 mg bid for at least 3-6 months. Final duration to be discussed in pulmonary clinic follow up Echo done Plan: -continue apixaban (Eliquis) tablet 10 mg BID Assessment & Plan (06/13/2025 7:50 AM CDT): Transition from heparin gtt to eliquis 10 bid for 7 days following by 5 mg bid for at least 3-6 months. Final duration to be discussed in pulmonary clinic follow up Echo done Plan: -continue apixaban (Eliquis) tablet 10 mg BID Assessment & Plan (06/12/2025 1:22 PM CDT): Transition from heparin gtt to eliquis 10 bid for 7 days following by 5 mg bid for at least 3-6 months. Final duration to be discussed in pulmonary clinic follow up Echo done Plan: -continue apixaban (Eliquis) tablet 10 mg BID Assessment & Plan (06/11/2025 3:03 PM CDT): Transition from heparin gtt to eliquis 10 bid for 7 days following by 5 mg bid for at least 3-6 months. Final duration to be discussed in pulmonary clinic follow up Echo done Plan: Start apixaban (Eliquis) tablet 10 mg BID Toxic metabolic encephalopathy 06/09/2025 Assessment & Plan (06/18/2025 2:17 PM CDT): S/p transfusion on 06/15. Plan: - Continue monitoring with CBC and CMP - Transfuse if hemoglobin <7. Assessment & Plan (06/17/2025 3:41 PM CDT): S/p transfusion on 06/15. Plan: - Continue monitoring with CBC and CMP - Transfuse if hemoglobin <7. Assessment & Plan (06/16/2025 6:55 PM CDT): S/p transfusion on 06/15. Plan: - Continue monitoring with CBC and CMP - Transfuse if hemoglobin <7. Assessment & Plan (06/15/2025 4:43 PM CDT): S/p transfusion on 06/15. Plan: - Continue monitoring - Transfuse if hemoglobin <7. Assessment & Plan (06/14/2025 10:16 AM CDT): Improving Plan: - Continue monitoring Assessment & Plan (06/13/2025 7:50 AM CDT): Improving Plan: - Repeat lactic acid q6h - Continue monitoring Assessment & Plan (06/12/2025 1:22 PM CDT): Improving Plan: - Repeat lactic acid q6h - Continue monitoring Assessment & Plan (06/11/2025 3:03 PM CDT): Improving Plan: - Repeat lactic acid q6h - Continue monitoring Other cirrhosis of liver 06/09/2025 Assessment & Plan (06/27/2025 9:27 AM CDT): New diagnosis CT CAP 06/09: Hepatic cirrhosis with sequelae of portal hypertension including splenomegaly, perisplenic varices, and a splenorenal shunt. Negative HIV and hepatitis panel. Abdominal ultrasound 06/10: - Hepatic cirrhosis . Suboptimal study for evaluation for lesion. - Overall patent hepatic vasculature within limitation of the study. Plan for outpatient follow-up. - MELD 3.0 score (06/21/2025) is 25. Assessment & Plan (2025 2:08 PM CDT): New diagnosis CT CAP 06/09: Hepatic cirrhosis with sequelae of portal hypertension including splenomegaly, perisplenic varices, and a splenorenal shunt. Negative HIV and hepatitis panel. Abdominal ultrasound 06/10: - Hepatic cirrhosis . Suboptimal study for evaluation for lesion. - Overall patent hepatic vasculature within limitation of the study. Plan for outpatient follow-up. - MELD 3.0 score (06/21/2025) is 25. Assessment & Plan (06/25/2025 9:51 AM CDT): New diagnosis CT CAP 06/09: Hepatic cirrhosis with sequelae of portal hypertension including splenomegaly, perisplenic varices, and a splenorenal shunt. Negative HIV and hepatitis panel. Abdominal ultrasound 06/10: - Hepatic cirrhosis . Suboptimal study for evaluation for lesion. - Overall patent hepatic vasculature within limitation of the study. Plan for outpatient follow-up. - MELD 3.0 score (06/21/2025) is 25. Assessment & Plan (06/24/2025 7:59 AM CDT): New diagnosis CT CAP 06/09: Hepatic cirrhosis with sequelae of portal hypertension including splenomegaly, perisplenic varices, and a splenorenal shunt. Negative HIV and hepatitis panel. Abdominal ultrasound 06/10: - Hepatic cirrhosis . Suboptimal study for evaluation for lesion. - Overall patent hepatic vasculature within limitation of the study. Plan for outpatient follow-up. - MELD 3.0 score (06/21/2025) is 25. Assessment & Plan (06/23/2025 5:05 PM CDT): New diagnosis CT CAP 06/09: Hepatic cirrhosis with sequelae of portal hypertension including splenomegaly, perisplenic varices, and a splenorenal shunt. Negative HIV and hepatitis panel. Abdominal ultrasound 06/10: - Hepatic cirrhosis . Suboptimal study for evaluation for lesion. - Overall patent hepatic vasculature within limitation of the study. Plan for outpatient follow-up. - MELD 3.0 score (06/21/2025) is 25. Assessment & Plan (06/22/2025 3:37 PM CDT): New diagnosis CT CAP 06/09: Hepatic cirrhosis with sequelae of portal hypertension including splenomegaly, perisplenic varices, and a splenorenal shunt. Negative HIV and hepatitis panel. Abdominal ultrasound 06/10: - Hepatic cirrhosis . Suboptimal study for evaluation for lesion. - Overall patent hepatic vasculature within limitation of the study. Plan for outpatient follow-up. - MELD 3.0 score (06/21/2025) is 25. Assessment & Plan (06/21/2025 12:01 PM CDT): New diagnosis CT CAP 06/09: Hepatic cirrhosis with sequelae of portal hypertension including splenomegaly, perisplenic varices, and a splenorenal shunt. Negative HIV and hepatitis panel. Abdominal ultrasound 06/10: - Hepatic cirrhosis . Suboptimal study for evaluation for lesion. - Overall patent hepatic vasculature within limitation of the study. Plan for outpatient follow-up. - MELD 3.0 score (06/21/2025) is 25. Assessment & Plan (06/20/2025 2:13 PM CDT): New diagnosis CT CAP 06/09: Hepatic cirrhosis with sequelae of portal hypertension including splenomegaly, perisplenic varices, and a splenorenal shunt. Negative HIV and hepatitis panel. Abdominal ultrasound 06/10: - Hepatic cirrhosis . Suboptimal study for evaluation for lesion. - Overall patent hepatic vasculature within limitation of the study. Plan for outpatient follow-up. Assessment & Plan (06/19/2025 2:39 PM CDT): New diagnosis CT CAP 7/29: Hepatic cirrhosis with sequelae of portal hypertension including splenomegaly, perisplenic varices, and a splenorenal shunt. Negative HIV and hepatitis panel. Abdominal ultrasound 730: - Hepatic cirrhosis . Suboptimal study for evaluation for lesion. - Overall patent hepatic vasculature within limitation of the study. Plan for outpatient follow-up. Assessment & Plan (06/18/2025 2:17 PM CDT): New diagnosis CT CAP 7/29: Hepatic cirrhosis with sequelae of portal hypertension including. splenomegaly, perisplenic varices, and a splenorenal shunt. Negative HIV and hepatitis panel Abdominal ultrasound done 7:30: - Hepatic cirrhosis . Suboptimal study for evaluation for lesion. - Overall patent hepatic vasculature within limitation of the study. Assessment & Plan (06/17/2025 3:41 PM CDT): New diagnosis CT CAP 7/29: Hepatic cirrhosis with sequelae of portal hypertension including. splenomegaly, perisplenic varices, and a splenorenal shunt. Negative HIV and hepatitis panel Abdominal ultrasound done 7:30: - Hepatic cirrhosis . Suboptimal study for evaluation for lesion. - Overall patent hepatic vasculature within limitation of the study. Assessment & Plan (06/16/2025 6:55 PM CDT): New diagnosis CT CAP 7/29: Hepatic cirrhosis with sequelae of portal hypertension including. splenomegaly, perisplenic varices, and a splenorenal shunt. Negative HIV and hepatitis panel Abdominal ultrasound done 7:30: - Hepatic cirrhosis . Suboptimal study for evaluation for lesion. - Overall patent hepatic vasculature within limitation of the study. Assessment & Plan (06/15/2025 4:43 PM CDT): New diagnosis CT CAP 7/29: Hepatic cirrhosis with sequelae of portal hypertension including. splenomegaly, perisplenic varices, and a splenorenal shunt. Negative HIV and hepatitis panel Abdominal ultrasound done 7:30: - Hepatic cirrhosis . Suboptimal study for evaluation for lesion. - Overall patent hepatic vasculature within limitation of the study. Assessment & Plan (06/14/2025 7:10 AM CDT): New diagnosis Negative HIV and hepatitis panel Abdominal ultrasound done Assessment & Plan (06/13/2025 1:17 PM CDT): New diagnosis Negative HIV and hepatitis panel Abdominal ultrasound done Assessment & Plan (06/12/2025 1:22 PM CDT): New diagnosis Negative HIV and hepatitis panel Abdominal ultrasound pending Assessment & Plan (06/11/2025 8:05 AM CDT): New diagnosis Negative HIV and hepatitis panel Abdominal ultrasound pending Thrombocytopenia 06/09/2025 Assessment & Plan (06/27/2025 9:27 AM CDT): Low throughout hospitalization in the 50s-90s - Will continue to monitor and hold eliquis if indicated. Assessment & Plan (2025 2:08 PM CDT): Low throughout hospitalization in the 50s-90s - Will continue to monitor and hold eliquis if indicated. Assessment & Plan (06/25/2025 9:51 AM CDT): Low throughout hospitalization in the 50s-90s - Will continue to monitor and hold eliquis if indicated. Assessment & Plan (06/24/2025 7:59 AM CDT): Low throughout hospitalization in the 50s-90s - Will continue to monitor and hold eliquis if indicated. Assessment & Plan (06/23/2025 5:05 PM CDT): Low throughout hospitalization in the 50s-90s - Will continue to monitor and hold eliquis if indicated. Assessment & Plan (06/22/2025 3:37 PM CDT): Low throughout hospitalization in the 50s-90s - Will continue to monitor and hold eliquis if indicated. Assessment & Plan (06/21/2025 12:01 PM CDT): Low throughout hospitalization in the 50s-90s - Will continue to monitor and hold eliquis if indicated. Assessment & Plan (06/20/2025 2:13 PM CDT): Low throughout hospitalization in the 50s-90s - Will continue to monitor and hold eliquis if indicated. Assessment & Plan (06/19/2025 2:39 PM CDT): Low throughout hospitalization in the 50s-90s - Will continue to monitor and hold eliquis if indicated. Assessment & Plan (06/18/2025 2:17 PM CDT): S/p transfusion on 06/15. Plan: - Continue monitoring with CBC and CMP - Transfuse if hemoglobin <7. Assessment & Plan (06/17/2025 3:41 PM CDT): S/p transfusion on 06/15. Plan: - Continue monitoring with CBC and CMP - Transfuse if hemoglobin <7. Assessment & Plan (06/16/2025 6:55 PM CDT): S/p transfusion on 06/15. Plan: - Continue monitoring with CBC and CMP - Transfuse if hemoglobin <7. Assessment & Plan (06/15/2025 4:43 PM CDT): S/p transfusion on 06/15. Plan: - Continue monitoring - Transfuse if hemoglobin <7. Assessment & Plan (06/14/2025 10:16 AM CDT): Improving Plan: - Continue monitoring Assessment & Plan (06/13/2025 7:50 AM CDT): Improving Plan: - Repeat lactic acid q6h - Continue monitoring Assessment & Plan (06/12/2025 1:22 PM CDT): Improving Plan: - Repeat lactic acid q6h - Continue monitoring Assessment & Plan (06/11/2025 3:03 PM CDT): Improving Plan: - Repeat lactic acid q6h - Continue monitoring Coronary artery disease invo lving [place] coronary artery of [place] heart without angina pectoris 06/09/2025 Assessment & Plan (06/27/2025 9:27 AM CDT): - Continue home medication aspirin and Plavix, Lipitor, carvedilol - Plavix completed on 06/15. Assessment & Plan (2025 2:08 PM CDT): - Continue home medication aspirin and Plavix, Lipitor, carvedilol - Plavix completed on 06/15. Assessment & Plan (06/25/2025 9:51 AM CDT): - Continue home medication aspirin and Plavix, Lipitor, carvedilol - Plavix completed on 06/15. Assessment & Plan (06/24/2025 7:59 AM CDT): - Continue home medication aspirin and Plavix, Lipitor, carvedilol - Plavix completed on 06/15. Assessment & Plan (06/23/2025 5:05 PM CDT): - Continue home medication aspirin and Plavix, Lipitor, carvedilol - Plavix completed on 06/15. Assessment & Plan (06/22/2025 3:37 PM CDT): - Continue home medication aspirin and Plavix, Lipitor, carvedilol - Plavix completed on 06/15. Assessment & Plan (06/21/2025 12:01 PM CDT): - Continue home medication aspirin and Plavix, Lipitor, carvedilol - Plavix completed on 06/15. Assessment & Plan (06/20/2025 2:13 PM CDT): - Continue home medication aspirin and Plavix, Lipitor, carvedilol - Plavix completed on 06/15. Assessment & Plan (06/19/2025 2:39 PM CDT): - Continue home medication aspirin and Plavix, Lipitor, carvedilol - Plavix completed on 06/15. Assessment & Plan (06/18/2025 2:17 PM CDT): - Continue home medication aspirin and Plavix, Lipitor, carvedilol - Plavix completed on 06/15. Assessment & Plan (06/17/2025 3:41 PM CDT): - Continue home medication aspirin and Plavix, Lipitor, carvedilol - Plavix discontinued on 06/15 per neurology recommendations. Assessment & Plan (06/16/2025 6:55 PM CDT): - Continue home medication aspirin and Plavix, Lipitor, carvedilol - Plavix discontinued on 06/15 per neurology recommendations. Assessment & Plan (06/15/2025 4:43 PM CDT): - Continue home medication aspirin and Plavix, Lipitor, carvedilol - Plavix discontinued on 06/15 per neurology recommendations. Assessment & Plan (06/14/2025 7:10 AM CDT): - Continue home medication aspirin and Plavix, Lipitor, carvedilol - Discontinue Plavix on 06/15 Assessment & Plan (06/13/2025 7:50 AM CDT): - Continue home medication aspirin and Plavix, Lipitor, carvedilol - Discontinue Plavix on 06/15 Assessment & Plan (06/12/2025 1:22 PM CDT): - Continue home medication aspirin and Plavix, Lipitor, carvedilol - Discontinue Plavix on 06/15 Assessment & Plan (06/11/2025 7:46 AM CDT): Continue home medication aspirin and Plavix, Lipitor, carvedilol Heart failure with mildly re duced ejection fraction (HFmrEF, 41-49%) 06/09/2025 Assessment & Plan (06/27/2025 9:27 AM CDT): - Holding carvedilol for hypotension. Assessment & Plan (2025 2:08 PM CDT): - Holding carvedilol for hypotension. Assessment & Plan (06/25/2025 9:51 AM CDT): - Holding carvedilol for hypotension. Assessment & Plan (06/24/2025 7:59 AM CDT): - Holding carvedilol for hypotension. Assessment & Plan (06/23/2025 5:05 PM CDT): - Holding carvedilol for hypotension. Assessment & Plan (06/22/2025 3:37 PM CDT): - Holding carvedilol for hypotension. Assessment & Plan (06/21/2025 12:01 PM CDT): - Holding carvedilol for hypotension. Assessment & Plan (06/20/2025 2:13 PM CDT): - Holding carvedilol for hypotension. Assessment & Plan (06/19/2025 2:39 PM CDT): - Continue carvedilol (Coreg) tablet 3.125 mg q12h Assessment & Plan (06/18/2025 2:17 PM CDT): - Continue carvedilol (Coreg) tablet 3.125 mg q12h Assessment & Plan (06/17/2025 3:41 PM CDT): - Continue carvedilol (Coreg) tablet 3.125 mg q12h Assessment & Plan (06/16/2025 6:55 PM CDT): - Continue carvedilol (Coreg) tablet 3.125 mg q12h Assessment & Plan (06/15/2025 4:12 PM CDT): - HOLD carvedilol (Coreg) tablet 3.125 mg q12h (BP has seen in 90-100s) Assessment & Plan (06/14/2025 10:16 AM CDT): - HOLD carvedilol (Coreg) tablet 3.125 mg q12h (BP has seen in 90-100s) Chronic atrial fibrillation 06/09/2025 Assessment & Plan (06/18/2025 2:17 PM CDT): Assessment & Plan (06/17/2025 3:41 PM CDT): Assessment & Plan (06/16/2025 6:55 PM CDT): S/P placement of cardiac pacemaker 06/09/2025 Assessment & Plan (06/27/2025 11:55 AM CDT): Continue CPAP Continue to monitor Assessment & Plan (2025 2:08 PM CDT): Assessment & Plan (06/25/2025 9:51 AM CDT): {[facility] Quick Recap - Optional:29578:::1} Assessment & Plan (06/24/2025 7:59 AM CDT): {[employer] Quick Recap - Optional:[id number]:::1} Assessment & Plan (06/23/2025 5:05 PM CDT): {[employer] Quick Recap - Optional:[id number]:::1} Assessment & Plan (06/22/2025 3:37 PM CDT): {[employer] Quick Recap - Optional:[id number]:::1} Assessment & Plan (06/21/2025 12:01 PM CDT): Assessment & Plan (06/20/2025 2:13 PM CDT): Assessment & Plan (06/19/2025 2:39 PM CDT): Assessment & Plan (06/18/2025 2:17 PM CDT): Assessment & Plan (06/17/2025 3:41 PM CDT): Assessment & Plan (06/16/2025 6:55 PM CDT): MAHTEUS on CPAP 06/09/2025 Assessment & Plan (06/27/2025 11:55 AM CDT): Continue CPAP Continue to monitor Assessment & Plan (2025 2:08 PM CDT): Assessment & Plan (06/25/2025 9:51 AM CDT): {HCC Quick Recap - Optional:23558:::1} Assessment & Plan (06/24/2025 7:59 AM CDT): {[employer] Quick Recap - Optional:61833:::1} Assessment & Plan (06/23/2025 5:05 PM CDT): {HCC Quick Recap - Optional:60141:::1} Assessment & Plan (06/22/2025 3:37 PM CDT): {HCC Quick Recap - Optional:[id number]:::1} Assessment & Plan (06/21/2025 12:01 PM CDT): Assessment & Plan (06/20/2025 2:13 PM CDT): Assessment & Plan (06/19/2025 2:39 PM CDT): Assessment & Plan (06/18/2025 2:17 PM CDT): Assessment & Plan (06/17/2025 3:41 PM CDT): Assessment & Plan (06/16/2025 6:55 PM CDT): Normocytic anemia 06/09/2025 Assessment & Plan (06/27/2025 11:55 AM CDT): - S/p transfusion x1 each on 06/15, 06/19, 06/22/2025. - Ferritin/iron/transferrin WNL on 06/10/2025. Repeat will not be accurate as the patient has received transfusions. - Started after initiating eliquis this hospitalization. - Concern for acute blood loss. Vitals have remained stable. Plan: - Transfused 1x unit of RBC today for hemoglobin <7. - Follow up on CBC and CMP. - DIC labs ordered for 06/23/2025. - Consider heme/onc consult given diffuse bruising on right flank and multiple transfusions if GI workup is negative. - Transfuse if hemoglobin <7. - GI consulted, appreciate recs: EGD is unremarkable. Please transfuse 1U pRBC and repeat Hgb for goal of >7 for EGD. Please Maintain two large bore Ivs, PPI BID IV, trend hemoglobin, transfuse to goal of >7 Octreotide course completed (06/22/2025). ceftriaxone 1 g per 24 hours for SBP prophylaxis. Ceftriaxone discontinued (06/23/2025). blood thinners currently on hold Consider other etiologies of acute anemia. 06/23/2025: CT scan of abdomen with out contrast ordered to evaluate for any possible bleeding episode in retroperitoneum. 06/24/2025: Work up for Immune hemolytic anemia: Direct Bilirubin (0.9 mg/dl), Haptoglobin (normal), LDH (mildly elevated, 263), and direct Joanna test negative. CT scan of abdomen with out contrast (ordered on 06/23/2025) was unremarkable for any possible bleeding episode in retroperitoneum. Heme/Onc has been consulted for the evaluation of the cause of decreasing blood counts. Per nephrology has been given a stat dose of 40 mg furosemide (lasix) per oral. 06/25/2025: Mild hypokalemia (3.3 mEq/L) addressed via stat oral KCL two 40mEq/L tablets. Monitor for signs of active hemorrhage (melena, maroon/ darked stools, gross hematochezia, hematemesis, or coarse black emesis, persitent tachycardia +/- hypotension). Call GI fellow lead quality control technician if patient develops hemodynamic instability that would warrant urgent endoscopic evaluation/treatment. Assessment & Plan (2025 2:08 PM CDT): - S/p transfusion x1 each on 06/15, 06/19, 06/22/2025. - Ferritin/iron/transferrin WNL on 06/10/2025. Repeat will not be accurate as the patient has received transfusions. - Started after initiating eliquis this hospitalization. - Concern for acute blood loss. Vitals have remained stable. Plan: - Transfused 1x unit of RBC today for hemoglobin <7. - Follow up on CBC and CMP. - DIC labs ordered for 06/23/2025. - Consider heme/onc consult given diffuse bruising on right flank and multiple transfusions if GI workup is negative. - Transfuse if hemoglobin <7. - GI consulted, appreciate recs: EGD is unremarkable. Please transfuse 1U pRBC and repeat Hgb for goal of >7 for EGD. Please Maintain two large bore Ivs, PPI BID IV, trend hemoglobin, transfuse to goal of >7 Octreotide course completed (06/22/2025). ceftriaxone 1 g per 24 hours for SBP prophylaxis. Ceftriaxone discontinued (06/23/2025). blood thinners currently on hold Consider other etiologies of acute anemia. 06/23/2025: CT scan of abdomen with out contrast ordered to evaluate for any possible bleeding episode in retroperitoneum. 06/24/2025: Work up for Immune hemolytic anemia: Direct Bilirubin (0.9 mg/dl), Haptoglobin (normal), LDH (mildly elevated, 263), and direct Joanna test negative. CT scan of abdomen with out contrast (ordered on 06/23/2025) was unremarkable for any possible bleeding episode in retroperitoneum. Heme/Onc has been consulted for the evaluation of the cause of decreasing blood counts. Per nephrology has been given a stat dose of 40 mg furosemide (lasix) per oral. 06/25/2025: Mild hypokalemia (3.3 mEq/L) addressed via stat oral KCL two 40mEq/L tablets. Monitor for signs of active hemorrhage (melena, maroon/ darked stools, gross hematochezia, hematemesis, or coarse black emesis, persitent tachycardia +/- hypotension). Call GI fellow lead quality control technician if patient develops hemodynamic instability that would warrant urgent endoscopic evaluation/treatment. Assessment & Plan (06/25/2025 2:14 PM CDT): - S/p transfusion x1 each on 06/15, 06/19, 06/22/2025. - Ferritin/iron/transferrin WNL on 06/10/2025. Repeat will not be accurate as the patient has received transfusions. - Started after initiating eliquis this hospitalization. - Concern for acute blood loss. Vitals have remained stable. Plan: - Transfused 1x unit of RBC today for hemoglobin <7. - Follow up on CBC and CMP. - DIC labs ordered for 06/23/2025. - Consider heme/onc consult given diffuse bruising on right flank and multiple transfusions if GI workup is negative. - Transfuse if hemoglobin <7. - GI consulted, appreciate recs: EGD is unremarkable. Please transfuse 1U pRBC and repeat Hgb for goal of >7 for EGD. Please Maintain two large bore Ivs, PPI BID IV, trend hemoglobin, transfuse to goal of >7 Octreotide course completed (06/22/2025). ceftriaxone 1 g per 24 hours for SBP prophylaxis. Ceftriaxone discontinued (06/23/2025). blood thinners currently on hold Consider other etiologies of acute anemia. 06/23/2025: CT scan of abdomen with out contrast ordered to evaluate for any possible bleeding episode in retroperitoneum. 06/24/2025: Work up for Immune hemolytic anemia: Direct Bilirubin (0.9 mg/dl), Haptoglobin (normal), LDH (mildly elevated, 263), and direct Joanna test negative. CT scan of abdomen with out contrast (ordered on 06/23/2025) was unremarkable for any possible bleeding episode in retroperitoneum. Heme/Onc has been consulted for the evaluation of the cause of decreasing blood counts. Per nephrology has been given a stat dose of 40 mg furosemide (lasix) per oral. 06/25/2025: Mild hypokalemia (3.3 mEq/L) addressed via stat oral KCL two 40mEq/L tablets. Monitor for signs of active hemorrhage (melena, maroon/ darked stools, gross hematochezia, hematemesis, or coarse black emesis, persitent tachycardia +/- hypotension). Call GI fellow lead quality control technician if patient develops hemodynamic instability that would warrant urgent endoscopic evaluation/treatment. Assessment & Plan (06/24/2025 3:44 PM CDT): - S/p transfusion x1 each on 06/15, 06/19, 06/22/2025. - Ferritin/iron/transferrin WNL on 06/10/2025. Repeat will not be accurate as the patient has received transfusions. - Started after initiating eliquis this hospitalization. - Concern for acute blood loss. Vitals have remained stable. Plan: - Transfused 1x unit of RBC today for hemoglobin <7. - Follow up on CBC and CMP. - DIC labs ordered for 06/23/2025. - Consider heme/onc consult given diffuse bruising on right flank and multiple transfusions if GI workup is negative. - Transfuse if hemoglobin <7. - GI consulted, appreciate recs: EGD is unremarkable. Please transfuse 1U pRBC and repeat Hgb for goal of >7 for EGD. Please Maintain two large bore Ivs, PPI BID IV, trend hemoglobin, transfuse to goal of >7 Octreotide course completed (06/22/2025). ceftriaxone 1 g per 24 hours for SBP prophylaxis. Ceftriaxone discontinued (06/23/2025). blood thinners currently on hold Consider other etiologies of acute anemia. 06/23/2025: CT scan of abdomen with out contrast ordered to evaluate for any possible bleeding episode in retroperitoneum. 06/24/2025: Work up for Immune hemolytic anemia: Direct Bilirubin (0.9 mg/dl), Haptoglobin (normal), LDH (mildly elevated, 263), and direct Joanna test negative. CT scan of abdomen with out contrast (ordered on 06/23/2025) was unremarkable for any possible bleeding episode in retroperitoneum. Heme/Onc has been consulted for the evaluation of the cause of decreasing blood counts. Per nephrology, give a stat dose of 40 mg furosemide (lasix) per oral. Monitor for signs of active hemorrhage (melena, maroon/ darked stools, gross hematochezia, hematemesis, or coarse black emesis, persitent tachycardia +/- hypotension). Call GI fellow lead quality control technician if patient develops hemodynamic instability that would warrant urgent endoscopic evaluation/treatment. Assessment & Plan (06/23/2025 7:55 PM CDT): - S/p transfusion x1 each on 06/15, 06/19, 06/22/2025. - Ferritin/iron/transferrin WNL on 06/10/2025. Repeat will not be accurate as the patient has received transfusions. - Started after initiating eliquis this hospitalization. - Concern for acute blood loss. Vitals have remained stable. Plan: - Transfused 1x unit of RBC today for hemoglobin <7. - Follow up on CBC and CMP. - DIC labs ordered for 06/23/2025. - Consider heme/onc consult given diffuse bruising on right flank and multiple transfusions if GI workup is negative. - Transfuse if hemoglobin <7. - GI consulted, appreciate recs: EGD is unremarkable. Please transfuse 1U pRBC and repeat Hgb for goal of >7 for EGD. Please Maintain two large bore Ivs, PPI BID IV, trend hemoglobin, transfuse to goal of >7 Octreotide course completed (06/22/2025). ceftriaxone 1 g per 24 hours for SBP prophylaxis. Ceftriaxone discontinued (06/23/2025). blood thinners currently on hold Consider other etiologies of acute anemia. CT scan of abdomen with out contrast ordered (06/23/2025). Monitor for signs of active hemorrhage (melena, maroon/ darked stools, gross hematochezia, hematemesis, or coarse black emesis, persitent tachycardia +/- hypotension). Call GI fellow lead quality control technician if patient develops hemodynamic instability that would warrant urgent endoscopic evaluation/treatment. Assessment & Plan (06/22/2025 3:55 PM CDT): - S/p transfusion x1 each on 06/15, 06/19, 06/22/2025. - Ferritin/iron/transferrin WNL on 06/10/2025. Repeat will not be accurate as the patient has received transfusions. - Started after initiating eliquis this hospitalization. - Concern for acute blood loss. Vitals have remained stable. Plan: - Transfused 1x unit of RBC today for hemoglobin <7. - Follow up on CBC and CMP. - DIC labs ordered for 06/23/2025. - Consider heme/onc consult given diffuse bruising on right flank and multiple transfusions if GI workup is negative. - Transfuse if hemoglobin <7. - GI consulted, appreciate recs: EGD planned for today. Please transfuse 1U pRBC and repeat Hgb for goal of >7 for EGD. Please Maintain two large bore Ivs, PPI BID IV, trend hemoglobin, transfuse to goal of >7 Continue octreotide for 72 hours, ceftriaxone 1 g per 24 hours for SBP prophylaxis Recommend diagnostic paracentesis if able Consider holding blood thinners if able Consider other etiologies of acute anemia Monitor for signs of active hemorrhage (melena, maroon/ darked stools, gross hematochezia, hematemesis, or coarse black emesis, persitent tachycardia +/- hypotension). Call GI fellow lead quality control technician if patient develops hemodynamic instability that would warrant urgent endoscopic evaluation/treatment. Assessment & Plan (06/21/2025 12:01 PM CDT): S/p transfusion on 06/15 and 06/19/2025. - Ferritin/iron/transferrin WNL on 06/10/2025 - Started after initiating eliquis this hospitalization. - Concern for acute blood loss. Vitals have remained stable. Plan: - Follow up on CBC and CMP. - Transfuse if hemoglobin <7. - GI consulted, appreciate recs: - EGD planned for Friday 06/22. Please keep NPO after midnight on 06/21. - Please Maintain two large bore Ivs, PPI BID IV, trend hemoglobin, transfuse to goal of >7 - Continue octreotide for 72 hours, ceftriaxone 1 g per 24 hours for SBP prophylaxis - Consider holding blood thinners if able - Consider other etiologies of acute anemia - Monitor for signs of active hemorrhage (melena, maroon/ darked stools, gross hematochezia hematemesis, or coarse black emesis, persitent tachycardia +/- hypotension). - Call GI fellow lead quality control technician if patient develops hemodynamic instability that would warrant urgent endoscopic evaluation/treatment. Assessment & Plan (06/20/2025 2:13 PM CDT): S/p transfusion on 06/15 and 06/19/2025. - Ferritin/iron/transferrin WNL on 06/10/2025 - Started after initiating eliquis this hospitalization. - Concern for acute blood loss. Vitals have remained stable. Plan: - Repeat CBC and BMP ordered for this afternoon to recheck. - Transfuse if hemoglobin <7. - GI consulted, appreciate recs: - EGD planned for Friday 06/22. Please keep NPO after midnight on 06/21. - Please Maintain two large bore Ivs, PPI BID IV, trend hemoglobin, transfuse to goal of >7 - Continue octreotide for 72 hours, ceftriaxone 1 g per 24 hours for SBP prophylaxis - Consider holding blood thinners if able - Consider other etiologies of acute anemia - Monitor for signs of active hemorrhage (melena, maroon/ darked stools, gross hematochezia hematemesis, or coarse black emesis, persitent tachycardia +/- hypotension). - Call GI fellow lead quality control technician if patient develops hemodynamic instability that would warrant urgent endoscopic evaluation/treatment. Assessment & Plan (06/19/2025 2:39 PM CDT): S/p transfusion on 06/15 and 06/19/2025. - Ferritin/iron/transferrin WNL on 06/10/2025 - Started after initiating eliquis this hospitalization. - Concern for acute blood loss. Vitals have remained stable. Plan: - Transfused RBC x1 unit today - Repeat CBC and BMP ordered for this afternoon to recheck. - Consult GI for possible EGD. - Continue monitoring with CBC and CMP - Transfuse if hemoglobin <7. Assessment & Plan (06/18/2025 2:17 PM CDT): S/p transfusion on 06/15. Plan: - Continue monitoring with CBC and CMP - Transfuse if hemoglobin <7. Assessment & Plan (06/17/2025 3:41 PM CDT): S/p transfusion on 06/15. Plan: - Continue monitoring with CBC and CMP - Transfuse if hemoglobin <7. Assessment & Plan (06/16/2025 6:55 PM CDT): S/p transfusion on 06/15. Plan: - Continue monitoring with CBC and CMP - Transfuse if hemoglobin <7. Assessment & Plan (06/15/2025 4:43 PM CDT): S/p transfusion on 06/15. Plan: - Continue monitoring - Transfuse if hemoglobin <7. Assessment & Plan (06/14/2025 10:16 AM CDT): Improving Plan: - Continue monitoring Assessment & Plan (06/13/2025 7:50 AM CDT): Improving Plan: - Repeat lactic acid q6h - Continue monitoring Assessment & Plan (06/12/2025 1:22 PM CDT): Improving Plan: - Repeat lactic acid q6h - Continue monitoring Assessment & Plan (06/11/2025 3:03 PM CDT): Improving Plan: - Repeat lactic acid q6h - Continue monitoring History of TIA (transient ischemic attack) 06/09 Assessment & Plan (06/27/2025 9:27 AM CDT): Recent TIA on 05/25/2025 - admitted to [facility] for dizziness and transient speech difficulty. Repeat CT head without acute changes - Plavix completed on 06/15. - Code stroke called 8/8 PM for transient right facial droop and altered mental status. Unclear if another TIA vs. Hyponatremia. Assessment & Plan (2025 2:08 PM CDT): Recent TIA on 05/25/2025 - admitted to [facility] for dizziness and transient speech difficulty. Repeat CT head without acute changes - Plavix completed on 06/15. - Code stroke called 8/8 PM for transient right facial droop and altered mental status. Unclear if another TIA vs. Hyponatremia. Assessment & Plan (06/25/2025 9:51 AM CDT): Recent TIA on 05/25/2025 - admitted to [facility] for dizziness and transient speech difficulty. Repeat CT head without acute changes - Plavix completed on 06/15. - Code stroke called 8/8 PM for transient right facial droop and altered mental status. Unclear if another TIA vs. Hyponatremia. Assessment & Plan (06/24/2025 7:59 AM CDT): Recent TIA on 05/25/2025 - admitted to [facility] for dizziness and transient speech difficulty. Repeat CT head without acute changes - Plavix completed on 06/15. - Code stroke called 8/8 PM for transient right facial droop and altered mental status. Unclear if another TIA vs. Hyponatremia. Assessment & Plan (06/23/2025 5:05 PM CDT): Recent TIA on 05/25/2025 - admitted to [facility] for dizziness and transient speech difficulty. Repeat CT head without acute changes - Plavix completed on 06/15. - Code stroke called 8/8 PM for transient right facial droop and altered mental status. Unclear if another TIA vs. Hyponatremia. Assessment & Plan (06/22/2025 3:37 PM CDT): Recent TIA on 05/25/2025 - admitted to [facility] for dizziness and transient speech difficulty. Repeat CT head without acute changes - Plavix completed on 06/15. - Code stroke called 8/8 PM for transient right facial droop and altered mental status. Unclear if another TIA vs. Hyponatremia. Assessment & Plan (06/21/2025 12:01 PM CDT): Recent TIA on 05/25/2025 - admitted to [facility] for dizziness and transient speech difficulty. Repeat CT head without acute changes - Plavix completed on 06/15. - Code stroke called 8/8 PM for transient right facial droop and altered mental status. Unclear if another TIA vs. Hyponatremia. Assessment & Plan (06/20/2025 2:13 PM CDT): Recent TIA on 05/25/2025 - admitted to [facility] for dizziness and transient speech difficulty. Repeat CT head without acute changes - Plavix completed on 8/4. Assessment & Plan (06/19/2025 2:39 PM CDT): Recent TIA on 05/25/2025 - admitted to [facility] for dizziness and transient speech difficulty. Repeat CT head without acute changes - Plavix completed on 06/15. Assessment & Plan (06/18/2025 2:17 PM CDT): Recent TIA on 05/25/2025 - admitted to [facility] for dizziness and transient speech difficulty. Repeat CT head without acute changes - Plavix completed on 06/15. Assessment & Plan (06/17/2025 3:41 PM CDT): Recent TIA on 05/25/2025 - admitted to [facility] for dizziness and transient speech difficulty. Repeat CT head without acute changes - Plavix discontinued on 06/15 per neurology recommendations. Assessment & Plan (06/16/2025 6:55 PM CDT): Recent TIA on 05/25/2025 - admitted to [facility] for dizziness and transient speech difficulty. Repeat CT head without acute changes - Plavix discontinued on 06/15 per neurology recommendations. Assessment & Plan (06/15/2025 4:43 PM CDT): Repeat CT head without acute changes - Plavix discontinued on 06/15 per neurology recommendations. Assessment & Plan (06/14/2025 7:10 AM CDT): Repeat CT head without acute changes - Continue aspirin and Plavix until 06/15 per Neurology recommendations Assessment & Plan (06/13/2025 7:50 AM CDT): Repeat CT head without acute changes - Continue aspirin and Plavix until 06/15 per Neurology recommendations Assessment & Plan (06/12/2025 1:22 PM CDT): Repeat CT head without acute changes - Continue aspirin and Plavix until 06/15 per Neurology recommendations Assessment & Plan (06/11/2025 3:03 PM CDT): Repeat CT head without acute changes - Continue aspirin and Plavix until 06/15 per Neurology recommendations HTN (hypertension) 06/09/2025 Assessment & Plan (06/27/2025 9:27 AM CDT): - Holding carvedilol for hypotension. Assessment & Plan (2025 2:08 PM CDT): - Holding carvedilol for hypotension. Assessment & Plan (06/25/2025 9:51 AM CDT): - Holding carvedilol for hypotension. Assessment & Plan (06/24/2025 7:59 AM CDT): - Holding carvedilol for hypotension. Assessment & Plan (06/23/2025 5:05 PM CDT): - Holding carvedilol for hypotension. Assessment & Plan (06/22/2025 3:37 PM CDT): - Holding carvedilol for hypotension. Assessment & Plan (06/21/2025 12:01 PM CDT): - Holding carvedilol for hypotension. Assessment & Plan (06/20/2025 2:13 PM CDT): - Holding carvedilol for hypotension. Assessment & Plan (06/19/2025 2:39 PM CDT): - Continue carvedilol (Coreg) tablet 3.125 mg q12h Assessment & Plan (06/18/2025 2:17 PM CDT): - Continue carvedilol (Coreg) tablet 3.125 mg q12h Assessment & Plan (06/17/2025 3:41 PM CDT): - Continue carvedilol (Coreg) tablet 3.125 mg q12h Assessment & Plan (06/16/2025 6:55 PM CDT): - Continue carvedilol (Coreg) tablet 3.125 mg q12h Assessment & Plan (06/15/2025 4:12 PM CDT): - HOLD carvedilol (Coreg) tablet 3.125 mg q12h (BP has seen in 90-100s) Assessment & Plan (06/14/2025 10:16 AM CDT): - HOLD carvedilol (Coreg) tablet 3.125 mg q12h (BP has seen in 90-100s) Assessment & Plan (06/13/2025 7:50 AM CDT): - carvedilol (Coreg) tablet 3.125 mg q12h Assessment & Plan (06/12/2025 1:22 PM CDT): - carvedilol (Coreg) tablet 3.125 mg q12h Assessment & Plan (06/11/2025 8:05 AM CDT): carvedilol (Coreg) tablet 3.125 mg q12h HLD (hyperlipidemia) 06/09/2025 Assessment & Plan (06/27/2025 9:27 AM CDT): - atorvastatin (Lipitor) tablet 80 mg q24h Assessment & Plan (2025 2:08 PM CDT): - atorvastatin (Lipitor) tablet 80 mg q24h Assessment & Plan (06/25/2025 9:51 AM CDT): - atorvastatin (Lipitor) tablet 80 mg q24h Assessment & Plan (06/24/2025 7:59 AM CDT): - atorvastatin (Lipitor) tablet 80 mg q24h Assessment & Plan (06/23/2025 5:05 PM CDT): - atorvastatin (Lipitor) tablet 80 mg q24h Assessment & Plan (06/22/2025 3:37 PM CDT): - atorvastatin (Lipitor) tablet 80 mg q24h Assessment & Plan (06/21/2025 12:01 PM CDT): - atorvastatin (Lipitor) tablet 80 mg q24h Assessment & Plan (06/20/2025 2:13 PM CDT): - atorvastatin (Lipitor) tablet 80 mg q24h Assessment & Plan (06/19/2025 2:39 PM CDT): - atorvastatin (Lipitor) tablet 80 mg q24h Assessment & Plan (06/18/2025 2:17 PM CDT): - atorvastatin (Lipitor) tablet 80 mg q24h Assessment & Plan (06/17/2025 3:41 PM CDT): - atorvastatin (Lipitor) tablet 80 mg q24h Assessment & Plan (06/16/2025 6:55 PM CDT): - atorvastatin (Lipitor) tablet 80 mg q24h Assessment & Plan (06/15/2025 4:12 PM CDT): - atorvastatin (Lipitor) tablet 80 mg q24h Assessment & Plan (06/14/2025 7:10 AM CDT): - atorvastatin (Lipitor) tablet 80 mg q24h Assessment & Plan (06/13/2025 7:50 AM CDT): - atorvastatin (Lipitor) tablet 80 mg q24h Assessment & Plan (06/12/2025 1:22 PM CDT): - atorvastatin (Lipitor) tablet 80 mg q24h Assessment & Plan (06/11/2025 8:05 AM CDT): - atorvastatin (Lipitor) tablet 80 mg q24h Lymphedema 06/09/2025 Assessment & Plan (06/27/2025 9:27 AM CDT): - 06/13/2025: Holding Torsemide for hyponatremia and hypotension. 06/25/2025: Per nephrology, patient is restarted on Torsemide 20 mg. Assessment & Plan (2025 2:08 PM CDT): - 06/13/2025: Holding Torsemide for hyponatremia and hypotension. 06/25/2025: Per nephrology, patient is restarted on Torsemide 20 mg. Assessment & Plan (06/25/2025 2:14 PM CDT): - 06/13/2025: Holding Torsemide for hyponatremia and hypotension. 06/25/2025: Per nephrology, patient is restarted on Torsemide 20 mg. Assessment & Plan (06/24/2025 7:59 AM CDT): - Holding Torsemide for hyponatremia and hypotension. Assessment & Plan (06/23/2025 5:05 PM CDT): - Holding Torsemide for hyponatremia and hypotension. Assessment & Plan (06/22/2025 3:37 PM CDT): - Holding Torsemide for hyponatremia and hypotension. Assessment & Plan (06/21/2025 12:01 PM CDT): - Holding Torsemide for hyponatremia and hypotension. Assessment & Plan (06/20/2025 2:13 PM CDT): - Holding Torsemide for hyponatremia and hypotension. Assessment & Plan (06/19/2025 2:39 PM CDT): - Started Torsemide 06/13 - Held torsemide 06/17 for hyponatremia, restarted 06/18. Assessment & Plan (06/18/2025 2:17 PM CDT): - Started Torsemide 8/2 - Held torsemide 8/6 for hyponatremia, restarted 06/18. Assessment & Plan (06/17/2025 3:41 PM CDT): Currently home medication. - Started Torsemide 8/2 - Held torsemide 8/6 for hyponatremia Assessment & Plan (06/16/2025 6:55 PM CDT): Currently home medication. - Started Torsemide 8/2 Assessment & Plan (06/15/2025 4:12 PM CDT): Currently home medication. - Started Torsemide 8/2 Assessment & Plan (06/14/2025 7:20 AM CDT): Currently home medication. - Started Torsemide 8/2 Assessment & Plan (06/13/2025 7:50 AM CDT): Currently home medication. - Start Torsemide tomorrow Assessment & Plan (06/12/2025 1:22 PM CDT): Currently home medication. - Start Torsemide tomorrow Assessment & Plan (06/11/2025 7:46 AM CDT): Currently home medication. Torsemide on hold due to in setting of possible sepsis and acute kidney injury Stasis dermatitis 06/09/2025 Assessment & Plan (06/27/2025 9:27 AM CDT): Chronic Assessment & Plan (2025 2:08 PM CDT): Chronic Assessment & Plan (06/25/2025 9:51 AM CDT): Chronic Assessment & Plan (06/24/2025 7:59 AM CDT): Chronic Assessment & Plan (06/23/2025 5:05 PM CDT): Chronic Assessment & Plan (06/22/2025 3:37 PM CDT): Chronic Assessment & Plan (06/21/2025 12:01 PM CDT): Chronic Assessment & Plan (06/20/2025 2:13 PM CDT): Chronic Assessment & Plan (06/19/2025 2:39 PM CDT): Chronic Assessment & Plan (06/18/2025 2:17 PM CDT): Chronic Assessment & Plan (06/17/2025 3:41 PM CDT): S/p IV fluid bolus Assessment & Plan (06/16/2025 6:55 PM CDT): S/p IV fluid bolus Assessment & Plan (06/15/2025 4:12 PM CDT): S/p IV fluid bolus Assessment & Plan (06/14/2025 7:10 AM CDT): S/p IV fluid bolus Assessment & Plan (06/13/2025 7:50 AM CDT): S/p IV fluid bolus Assessment & Plan (06/12/2025 1:22 PM CDT): S/p IV fluid bolus Assessment & Plan (06/11/2025 7:46 AM CDT): S/p IV fluid bolus T2DM (type 2 diabetes mellitus) 06/09/2025 Assessment & Plan (06/27/2025 9:27 AM CDT): - Accu-Check - SSI 0-12 - Patient started on 5 units glargine on 06/16. Assessment & Plan (2025 2:08 PM CDT): - Accu-Check - SSI 0-12 - Patient started on 5 units glargine on 06/16. Assessment & Plan (06/25/2025 9:51 AM CDT): - Accu-Check - SSI 0-12 - Patient started on 5 units glargine on 06/16. Assessment & Plan (06/24/2025 7:59 AM CDT): - Accu-Check - SSI 0-12 - Patient started on 5 units glargine on 06/16. Assessment & Plan (06/23/2025 5:05 PM CDT): - Accu-Check - SSI 0-12 - Patient started on 5 units glargine on 06/16. Assessment & Plan (06/22/2025 3:37 PM CDT): - Accu-Check - SSI 0-12 - Patient started on 5 units glargine on 06/16. Assessment & Plan (06/21/2025 12:01 PM CDT): - Accu-Check - SSI 0-12 - Patient started on 5 units glargine on 06/16. Assessment & Plan (06/20/2025 2:13 PM CDT): - Accu-Check - SSI 0-12 - Patient started on 5 units glargine on 06/16. Assessment & Plan (06/19/2025 2:39 PM CDT): - Accu-Check - SSI 0-12 - Patient started on 5 units glargine on 06/16. Assessment & Plan (06/18/2025 2:17 PM CDT): - Accu-Check - SSI 0-12 - Patient started on 5 units glargine on 06/16. Assessment & Plan (06/17/2025 3:41 PM CDT): - Accu-Check - SSI 0-6 - Patient started on 5 units glargine on 06/16. Assessment & Plan (06/16/2025 6:55 PM CDT): - Accu-Check - SSI 0-6 - Patient started on 5 units glargine on 06/16. Assessment & Plan (06/15/2025 4:12 PM CDT): Accu-Chek, SSI Assessment & Plan (06/14/2025 7:10 AM CDT): Accu-Chek, SSI Assessment & Plan (06/13/2025 7:50 AM CDT): Accu-Chek, SSI Assessment & Plan (06/12/2025 1:22 PM CDT): Accu-Chek, SSI Assessment & Plan (06/11/2025 7:46 AM CDT): Accu-Chek, SSI Personal history of other malignant neoplasm of skin 06/16/2011 Resolved Problems Problem Noted Date Diagnosed Date Resolved Date Hypokalemia 06/14/2025 06/23/2025 Assessment & Plan (06/23/2025 5:05 PM CDT): Plan: monitor and replete as indicated. Assessment & Plan (06/22/2025 3:37 PM CDT): Plan: monitor and replete as indicated. Assessment & Plan (06/21/2025 12:01 PM CDT): Plan: monitor and replete as indicated. Assessment & Plan (06/20/2025 2:13 PM CDT): Plan: monitor and replete as indicated. Assessment & Plan (06/19/2025 2:39 PM CDT): Plan: monitor and replete as indicated. Assessment & Plan (06/18/2025 2:17 PM CDT): Plan: monitor and replete as indicated. Assessment & Plan (06/17/2025 3:41 PM CDT): Plan: monitor and replete as indicated. Assessment & Plan (06/16/2025 6:55 PM CDT): Plan: monitor and replete as indicated. Assessment & Plan (06/15/2025 4:43 PM CDT): Plan: monitor and replete as indicated. Assessment & Plan (06/14/2025 7:20 AM CDT): Replated Plan: CCM Hypophosphatemia 06/14/2025 06/23/2025 Assessment & Plan (06/23/2025 5:05 PM CDT): Plan: monitor and replete as indicated. Assessment & Plan (06/22/2025 3:37 PM CDT): Plan: monitor and replete as indicated. Assessment & Plan (06/21/2025 12:01 PM CDT): Plan: monitor and replete as indicated. Assessment & Plan (06/20/2025 2:13 PM CDT): Plan: monitor and replete as indicated. Assessment & Plan (06/19/2025 2:39 PM CDT): Plan: monitor and replete as indicated. Assessment & Plan (06/18/2025 2:17 PM CDT): Plan: monitor and replete as indicated. Assessment & Plan (06/17/2025 3:41 PM CDT): Plan: monitor and replete as indicated. Assessment & Plan (06/16/2025 6:55 PM CDT): Plan: monitor and replete as indicated. Assessment & Plan (06/15/2025 4:43 PM CDT): Plan: monitor and replete as indicated. Assessment & Plan (06/14/2025 7:20 AM CDT): Replated Plan: CCM Altered mental status, unspe cified altered mental status type 06/09/2025 06/09/2025 Weakness 06/09/2025 06/09/2025 Lactic acidosis 06/09/2025 06/14/2025 Assessment & Plan (06/14/2025 10:16 AM CDT): Improving Plan: - Continue monitoring Assessment & Plan (06/13/2025 7:50 AM CDT): Improving Plan: - Repeat lactic acid q6h - Continue monitoring Assessment & Plan (06/12/2025 1:22 PM CDT): Improving Plan: - Repeat lactic acid q6h - Continue monitoring Assessment & Plan (06/11/2025 3:03 PM CDT): Improving Plan: - Repeat lactic acid q6h - Continue monitoring Sepsis, due to unspecified o rganism, unspecified whether acute organ dysfunction present 06/09/2025 06/14/2025 Assessment & Plan (06/14/2025 10:16 AM CDT): Resolved Completed IV cefTRIAXone (Rocephin) syringe 2,000 mg q24h therapy Assessment & Plan (06/13/2025 7:50 AM CDT): Completed IV cefTRIAXone (Rocephin) syringe 2,000 mg q24h therapy Assessment & Plan (06/12/2025 1:22 PM CDT): Completed IV cefTRIAXone (Rocephin) syringe 2,000 mg q24h therapy Assessment & Plan (06/11/2025 8:05 AM CDT): IV cefTRIAXone (Rocephin) syringe 2,000 mg q24h Sick sinus syndrome 06/09/2025 06/27/20 25 Assessment & Plan (06/27/2025 11:55 AM CDT): Continue CPAP Continue to monitor Assessment & Plan (2025 2:08 PM CDT): Assessment & Plan (06/25/2025 9:51 AM CDT): {[employer] Quick Recap - Optional:48757:::1} Assessment & Plan (06/24/2025 7:59 AM CDT): {[employer] Quick Recap - Optional:67796:::1} Assessment & Plan (06/23/2025 5:05 PM CDT): {[employer] Quick Recap - Optional:35608:::1} Assessment & Plan (06/22/2025 3:37 PM CDT): {[employer] Quick Recap - Optional:48856:::1} Assessment & Plan (06/21/2025 12:01 PM CDT): Assessment & Plan (06/20/2025 2:13 PM CDT): Assessment & Plan (06/19/2025 2:39 PM CDT): Assessment & Plan (06/18/2025 2:17 PM CDT): Assessment & Plan (06/17/2025 3:41 PM CDT): Assessment & Plan (06/16/2025 6:55 PM CDT): History of prostate cancer 06/09/2025 0 06/27/2025 Assessment & Plan (06/27/2025 11:55 AM CDT): Continue CPAP Continue to monitor Assessment & Plan (2025 2:08 PM CDT): Assessment & Plan (06/25/2025 9:51 AM CDT): {[facility] Quick Recap - Optional:24498:::1} Assessment & Plan (06/24/2025 7:59 AM CDT): {[employer] Quick Recap - Optional:13153:::1} Assessment & Plan (06/23/2025 5:05 PM CDT): {[employer] Quick Recap - Optional:29250:::1} Assessment & Plan (06/22/2025 3:37 PM CDT): {[employer] Quick Recap - Optional:65114:::1} Assessment & Plan (06/21/2025 12:01 PM CDT): Assessment & Plan (06/20/2025 2:13 PM CDT): Assessment & Plan (06/19/2025 2:39 PM CDT): Assessment & Plan (06/18/2025 2:17 PM CDT): Assessment & Plan (06/17/2025 3:41 PM CDT): Assessment & Plan (06/16/2025 6:55 PM CDT): UTI (urinary tract infection) 06/09/2025 06/23/2025 Assessment & Plan (06/18/2025 2:17 PM CDT): Urosepsis Urine culture remarkable for E coli. Susceptibility pending Of note, recent hospitalization with Al Assessment & Plan (06/17/2025 3:41 PM CDT): Urosepsis Urine culture remarkable for E coli. Susceptibility pending Of note, recent hospitalization with Al Assessment & Plan (06/16/2025 6:55 PM CDT): Urosepsis Urine culture remarkable for E coli. Susceptibility pending Of note, recent hospitalization with Al Assessment & Plan (06/15/2025 4:12 PM CDT): Urosepsis Urine culture remarkable for E coli. Susceptibility pending Of note, recent hospitalization with Al Assessment & Plan (06/14/2025 7:10 AM CDT): Urosepsis Urine culture remarkable for E coli. Susceptibility pending Of note, recent hospitalization with Al Assessment & Plan (06/13/2025 7:50 AM CDT): Urosepsis Urine culture remarkable for E coli. Susceptibility pending Of note, recent hospitalization with Al Assessment & Plan (06/12/2025 1:22 PM CDT): Urosepsis Urine culture remarkable for E coli. Susceptibility pending Of note, recent hospitalization with Al Assessment & Plan (06/11/2025 7:46 AM CDT): Urosepsis Urine culture remarkable for E coli. On Rocephin Susceptibility pending Of note, recent hospitalization with Al INGRIS (acute kidney injury) 06/09/2025 Assessment & Plan (06/14/2025 10:16 AM CDT): Resolved Likely prerenal from urosepsis We do not have enough data to determine baseline accurately Plan: CCM Assessment & Plan (06/13/2025 1:17 PM CDT): Likely prerenal from urosepsis We do not have enough data to determine baseline accurately Plan: - restart Torsemide Assessment & Plan (06/12/2025 1:22 PM CDT): Likely prerenal from urosepsis We do not have enough data to determine baseline accurately Currently home medication. Torsemide on hold Assessment & Plan (06/11/2025 7:46 AM CDT): Likely prerenal from urosepsis We do not have enough data to determine baseline accurately Currently home medication. Torsemide on hold AMS (altered mental status) 06/08/2025 06/09/2025 Generalized weakness 06/08/2025 025 Encounters Date Type Department Care Team Description 06/22/2025 4:58 PM CDT Anesthesia Event [facility] ENDOSCOPY [address] [place] [address] Sam Lebron MD Dobbs, Kristin L, [employer]UCK [employer] 06/22/2025 4:36 PM CDT - 06/22/2025 5:[address] [facility] ENDOSCOPY [address] [place] [address] Brain Boyle MD EGD(Blood complete, Hgb 8.2) 06/09/2025 Travel 06/08/2025 9:24 PM CDT - 06/27/2025 10:23 AM CDT Hospital Encounter [facility] 8S ACUTE [address] [place] [address] Maurilio Khan MD Havens, Timothy R, MD Kim, Shawn M, DO Barrios, Christopher R, MD Hoque, Farzana, MD Felgenhauer, Joshua, MD Chinnery, Akrin, MD Archuleta, Lydia, MD Thompson, Keniesha O, MD Internal Medicine Discharge Disposition: Custodial Facility from Last 3 Months Family History Medical History Relation Name Comments [...] drink = 0.6 oz pur e alcohol) AUDIT-C Answer Date Recorded Q1: How often do you have a drink containing alcohol? Patient unable to answer 06/09/2025 Q2: How many drinks containi ng alcohol do you have on a typical day when you are drinking? Patient unable to answer Q3: How often do you have si x or more drinks on one occasion? Patient unable to answer 06/09/2025 Overall Financial Resource Strain (CARDIA) Answe r Date Recorded How hard is it for you to pa y for the very basics like food, housing, medical care, and heating? Not hard at all 06/24/2025 [facility] [place] [facility] - Occupational Stress Questionnaire Answer Date Recorded Do you feel stress - tense, restless, nervous, or anxious, or unable to sleep at night because your mind is troubled all the time - these days? Only a little 06/24/2025 Hunger Vital Sign Answer Date Recorded Within the past 12 months, y ou worried that your food would run out before you got the money to buy more. Never true 06/24/20 25 Within the past 12 months, t he food you bought just didn't last and you didn't have money to get more. Never true 06/24/2025 PRAPARE - Transportation Answer Date Re corded In the past 12 months, has l ack of transportation kept you from medical appointments or from getting medications? No 06/12 In the past 12 months, has l ack of transportation kept you from meetings, work, or from getting things needed for daily living? No 06/24/2025 Housing Stability Vital Sign Answer Damien e Recorded In the last 12 months, was t here a time when you were not able to pay the mortgage or rent on time? No 06/24/2025 In the past 12 months, how m any times have you moved where you were living? 0 06/24/2025 At any time in the past 12 m [facility], were you homeless or living in a usp (including now)? No 06/24/2025 Sex and Gender Information Value Date Recorded Sex Assigned at Not on file Legal Sex Male 5:25 PM [employer] Gender Identity Not on file Sexual Orientation Not on file Last Filed Vital Signs Vital Sign Reading Time Taken Comments Blood Pressure 101/50 06/27/2025 3:20 AM CDT Pulse 75 06/27/2025 3:20 AM CDT Temperature 36.4 C (97.5 F) 06/27/2025 3:20 AM CDT Respiratory Rate 18 06/27/2025 3:20 AM CDT Oxygen Saturation 98% 06/27/2025 3:20 AM CDT Inhaled Oxygen Concentration 24% 12:44 AM CDT Weight 111.4 kg (245 lb 11.2 oz) 2025 3:27 AM CDT Height 182.9 cm (6' 0.01) 06/09/2025 6:22 PM CD T Body Mass Index 33.32 06/09/2025 6:22 PM CDT Plan of Treatment Upcoming Encounters Date Type Department Care Team (Late st Contact Info) Description 09/17/2025 2:00 PM [employer] Office Visit [facility] - Pulmonology [address] [facility] [place] [address] Michoacano Rodriguez MD [address] [place] [id number] Health Maintenance Due Date Last Done Comments MEDICARE AWV 12 MONTHS 1944 DTAP/TDAP/TD VACCINES (1 - Tdap) 1963 PNEUMOCOCCAL VACCINE 50+ (1 of 2 - PCV) 1963 ZOSTER VACCINE (1 of 2) 1994 HEPATITIS B VACCINE (1 of 3 - Risk 3-dose series) 2004 Respiratory Syncytial Virus (RSV) Vaccine Pt: or over 60 yrs (1 - 1-dose 75+ series) 2019 COVID-19 VACCINE (3 - season) 2024 02/26/2021, 01/26/2021 DEPRESSION SCREENING 11/12/2024 DIABETES - URINE PROTEIN SCREENING 11/12/2024 DIABETES RETINOPATHY SCREENING 06/09/2025 DIABETES-FOOT EXAM WITH MONOFILAMENT 06/09/2025 INFLUENZA VACCINE (#1) 2025 , 09/14/2023, 09/25/2022, Additional history exists DIABETES-HGB A1C 12/10/2025 06/09/2025, , 09/09/2024 DIABETES-SERUM CREATININE 06/27/20262024, 2025, 06/25/2025, Additional history exists HIB VACCINE Aged Out No longer eligi ble based on patient's age to complete this topic HPV VACCINE Aged Out No longer eligi ble based on patient's age to complete this topic MENINGOCOCCAL (Group B) VACCINE SHARED DECISION-MAKING Aged Out No longer eligible based on patient's age to complete this topic MENINGOCOCCAL GROUPS A/C/Y/W VACCINE Aged Out No longer eligible based on patient's age to complete this topic Procedures Procedure Name Priority Date/Time Associated Diagnosis Comments GLUCOSE - POINT OF CARE Routine 06/27/2025 8:28 AM CDT CBC W AUTO DIFFERENTIAL AM Draw 06/27/2025 7:45 AM CDT COMPREHENSIVE METABOLIC PANEL Timed 06/27/2025 7:45 AM CDT PHOSPHORUS BLOOD Timed 06/27/2025 7:45 AM CDT MAGNESIUM BLOOD Timed 06/27/2025 7:45 AM CDT GLUCOSE - POINT OF CARE Routine 2025 8:10 PM CDT GLUCOSE - POINT OF CARE Routine 2025 3:48 PM CDT GLUCOSE - POINT OF CARE Routine 2025 11:02 AM CDT GLUCOSE - POINT OF CARE Routine 2025 7:36 AM CDT EHRLICHIA SPECIES PCR AM Draw 2025 5:32 AM CDT VITAMIN B12 AM Draw 2025 5:32 AM CDT FOLATE Routine 2025 5:32 AM CDT CBC W AUTO DIFFERENTIAL AM Draw 2025 5:32 AM CDT COMPREHENSIVE METABOLIC PANEL Timed 2025 5:32 AM CDT PHOSPHORUS BLOOD Timed 2025 5:32 AM CDT MAGNESIUM BLOOD Timed 2025 5:32 AM CDT CYTOMEGALOVIRUS (CMV) QUANTITATIVE PLASMA AM Draw 2025 5:32 AM CDT JUAN-CHAPA VIRUS QUANT BLOOD STL AM Draw 2025 5:32 AM CDT URINALYSIS REFLEX TO MICROSCOPIC NO CULTURE Routine 06/25/2025 4:52 PM CDT GLUCOSE - POINT OF CARE Routine 06/25/2025 3:56 PM CDT GLUCOSE - POINT OF CARE Routine 06/25/2025 11:39 AM CDT GLUCOSE - POINT OF CARE Routine 06/25/2025 7:31 AM CDT GLUCOSE - POINT OF CARE Routine 06/25/2025 6:51 AM CDT COMPREHENSIVE METABOLIC PANEL Timed 06/25/2025 5:27 AM CDT PHOSPHORUS BLOOD Timed 06/25/2025 5:27 AM CDT MAGNESIUM BLOOD Timed 06/25/2025 5:27 AM CDT CBC W AUTO DIFFERENTIAL AM Draw 06/25/2025 5:26 AM CDT GLUCOSE - POINT OF CARE Routine 06/24/2025 10:07 PM CDT GLUCOSE - POINT OF CARE Routine 06/24/2025 4:16 PM CDT GLUCOSE - POINT OF CARE Routine 06/24/2025 11:12 AM CDT JOANNA DIRECT Timed 06/24/2025 8:06 AM CDT RETIC COUNT Timed 06/24/2025 8:06 AM CDT GLUCOSE - POINT OF CARE Routine 06/24/2025 6:54 AM CDT LDH BLOOD Timed 06/24/2025 6:10 AM CDT HAPTOGLOBIN Timed 06/24/2025 6:10 AM CDT BILIRUBIN DIRECT Routine 06/24/2025 6:10 AM CDT CBC W/O DIFFERENTIAL AM Draw 06/24/2025 6:10 AM CDT COMPREHENSIVE METABOLIC PANEL Timed 06/24/2025 6:10 AM CDT PHOSPHORUS BLOOD Timed 06/24/2025 6:10 AM CDT MAGNESIUM BLOOD Timed 06/24/2025 6:10 AM CDT GLUCOSE - POINT OF CARE Routine 06/23/2025 11:24 PM CDT GLUCOSE - POINT OF CARE Routine 06/23/2025 5:[address] ABDOMEN PELVIS WO CONTRAST Routine 06/23/2025 3:34 PM CDT Altered mental status, unspecified altered mental status type Hepatic cirrhosis, unspecified hepatic cirrhosis type, unspecified whether ascites present (HCC) Normocytic anemia Thrombocytopenia GLUCOSE - POINT OF CARE Routine 06/23/2025 12:13 PM CDT GLUCOSE - POINT OF CARE Routine 06/23/2025 9:51 AM CDT GLUCOSE - POINT OF CARE Routine 06/23/2025 8:14 AM CDT FIBRINOGEN ACTIVITY Routine 06/23/2025 6 :08 AM CDT PTT Routine 06/23/2025 6:08 AM CDT PT-INR Routine 06/23/2025 6:08 AM CDT D-DIMER Routine 06/23/2025 6:08 AM CDT CBC W/O DIFFERENTIAL AM Draw 06/23/2025 6:08 AM CDT COMPREHENSIVE METABOLIC PANEL Timed 06/23/2025 6:08 AM CDT PHOSPHORUS BLOOD Timed 06/23/2025 6:08 AM CDT MAGNESIUM BLOOD Timed 06/23/2025 6:08 AM CDT GLUCOSE - POINT OF CARE Routine 06/23/2025 5:25 AM CDT GLUCOSE - POINT OF CARE Routine 06/22/2025 10:42 PM CDT GLUCOSE - POINT OF CARE Routine 06/22/2025 6:33 PM CDT MI ED EGD FLEX TRANSORAL DX 06/22/2025 4:53 PM CDT Anemia, unspecified type Gastrointestinal hemorrhage, unspecified gastrointestinal hemorrhage type GLUCOSE - POINT OF CARE Routine 06/22/2025 4:50 PM CDT EGD Routine 06/22/2025 4:34 PM CDT HGB HCT PANEL STAT 06/22/2025 3:36 PM CDT GLUCOSE - POINT OF CARE Routine 06/22/2025 12:53 PM CDT GLUCOSE - POINT OF CARE Routine 06/22/2025 8:02 AM CDT CORTISOL BLOOD AM Routine 06/22/2025 7:2 9 AM CDT TSH REFLEX FREE T4 Routine 06/22/2025 7: 29 AM CDT CBC W/O DIFFERENTIAL AM Draw 06/22/2025 7:29 AM CDT COMPREHENSIVE METABOLIC PANEL Timed 06/22/2025 7:29 AM CDT PHOSPHORUS BLOOD Timed 06/22/2025 7:29 AM CDT MAGNESIUM BLOOD Timed 06/22/2025 7:29 AM CDT GLUCOSE - POINT OF CARE Routine 06/22/2025 7:11 AM CDT GLUCOSE - POINT OF CARE Routine 06/22/2025 12:41 AM CDT PHOSPHORUS BLOOD STAT 06/21/2025 6:39 PM CDT MAGNESIUM BLOOD STAT 06/21/2025 6:39 PM CDT COMPREHENSIVE METABOLIC PANEL STAT 06/21/2025 6:39 PM CDT CBC W/O DIFFERENTIAL STAT 06/21/2025 6:39 PM CDT GLUCOSE - POINT OF CARE Routine 06/21/2025 4:17 PM CDT OSMOLALITY URINE Routine 06/21/2025 1:19 PM CDT LYTES (NA K CL) URINE RANDOM PANEL Routine 06/21/2025 1:19 PM CDT GLUCOSE - POINT OF CARE Routine 06/21/2025 11:45 AM CDT GLUCOSE - POINT OF CARE Routine 06/20/2025 8:53 PM CDT HGB HCT PANEL Routine 06/20/2025 6:17 PM CDT BASIC METABOLIC PANEL (CALCIUM TOTAL) Routine 06/20/2025 6:17 PM CDT GLUCOSE - POINT OF CARE Routine 06/20/2025 6:07 PM CDT GLUCOSE - POINT OF CARE Routine 06/20/2025 11:44 AM CDT CBC W/O DIFFERENTIAL AM Draw 06/20/2025 11:10 AM CDT GLUCOSE - POINT OF CARE Routine 06/20/2025 6:13 AM CDT AMMONIA Routine 06/20/2025 6:06 AM CDT COMPREHENSIVE METABOLIC PANEL Timed 06/20/2025 6:06 AM CDT PHOSPHORUS BLOOD Timed 06/20/2025 6:06 AM CDT MAGNESIUM BLOOD Timed 06/20/2025 6:06 AM CDT GLUCOSE - POINT OF CARE Routine 06/19/2025 11:[address] ANGIO BRAIN NECK STROKE Routine 06/19/2025 6:17 PM CDT Transient alteration of awareness CT BRAIN STROKE Routine 06/19/2025 5:41 PM CDT Other cirrhosis of liver (HCC) GLUCOSE - POINT OF CARE Routine 06/19/2025 5:20 PM CDT HYDROXYBUTYRATE BETA STAT 06/19/2025 5:17 PM CDT COMPREHENSIVE METABOLIC PANEL STAT 06/19/2025 5:17 PM CDT CBC W AUTO DIFFERENTIAL STAT 06/19/2025 5:17 PM CDT LACTIC ACID BLOOD STAT 06/19/2025 5:1 7 PM CDT MAGNESIUM BLOOD STAT 06/19/2025 5:17 PM CDT PHOSPHORUS BLOOD STAT 06/19/2025 5:17 PM CDT TROPONIN-I HIGH SENSITIVE STAT 06/19/2025 5:17 PM CDT FERRITIN Routine 06/19/2025 5:17 PM CDT IRON + TRANSFERRIN PANEL Routine 06/19/2025 5:17 PM CDT GLUCOSE - POINT OF CARE Routine 06/19/2025 3:00 PM CDT TRANSFUSE RED BLOOD CELL LEUKOREDUCED UNIT(S) Routine 06/19/2025 1:58 PM CDT GLUCOSE - POINT OF CARE Routine 06/19/2025 1:43 PM CDT GLUCOSE - POINT OF CARE Routine 06/19/2025 10:58 AM CDT PREPARE RBC LEUKOREDUCED UNIT Routine 06/19/2025 8:57 AM CDT TYPE + SCREEN PANEL STAT 06/19/2025 8 :57 AM CDT PREPARE RBC LEUKOREDUCED UNIT Routine 06/19/2025 8:57 AM CDT GLUCOSE - POINT OF CARE Routine 06/19/2025 8:05 AM CDT CBC W/O DIFFERENTIAL AM Draw 06/19/2025 6:32 AM CDT COMPREHENSIVE METABOLIC PANEL Timed 06/19/2025 6:32 AM CDT PHOSPHORUS BLOOD Timed 06/19/2025 6:32 AM CDT MAGNESIUM BLOOD Timed 06/19/2025 6:32 AM CDT GLUCOSE - POINT OF CARE Routine 06/18/2025 9:28 PM CDT GLUCOSE - POINT OF CARE Routine 06/18/2025 4:28 PM CDT GLUCOSE - POINT OF CARE Routine 06/18/2025 11:24 AM CDT CBC W/O DIFFERENTIAL AM Draw 06/18/2025 6:36 AM CDT COMPREHENSIVE METABOLIC PANEL Timed 06/18/2025 6:35 AM CDT PHOSPHORUS BLOOD Timed 06/18/2025 6:35 AM CDT MAGNESIUM BLOOD Timed 06/18/2025 6:35 AM CDT GLUCOSE - POINT OF CARE Routine 06/18/2025 3:41 AM CDT GLUCOSE - POINT OF CARE Routine 06/18/2025 12:50 AM CDT GLUCOSE - POINT OF CARE Routine 06/17/2025 6:06 PM CDT UREA NITROGEN URINE RANDOM Routine 06/17/2025 2:08 PM CDT CREATININE URINE RANDOM Routine 06/17/2025 2:08 PM CDT OSMOLALITY URINE Routine 06/17/2025 2:08 PM CDT LYTES (NA K CL) URINE RANDOM PANEL Routine 06/17/2025 2:08 PM CDT URINALYSIS NO MICROSCOPIC NO CULTURE Routine 06/17/2025 2:08 PM CDT GLUCOSE - POINT OF CARE Routine 06/17/2025 11:03 AM CDT GLUCOSE - POINT OF CARE Routine 06/17/2025 7:51 AM CDT GLUCOSE - POINT OF CARE Routine 06/17/2025 6:21 AM CDT GLUCOSE - POINT OF CARE Routine 06/17/2025 5:54 AM CDT CBC W/O DIFFERENTIAL AM Draw 06/17/2025 4:49 AM CDT COMPREHENSIVE METABOLIC PANEL Timed 06/17/2025 4:49 AM CDT PHOSPHORUS BLOOD Timed 06/17/2025 4:49 AM CDT MAGNESIUM BLOOD Timed 06/17/2025 4:49 AM CDT GLUCOSE - POINT OF CARE Routine 06/17/2025 1:24 AM CDT GLUCOSE - POINT OF CARE Routine 06/16/2025 9:38 PM CDT GLUCOSE - POINT OF CARE Routine 06/16/2025 4:05 PM CDT GLUCOSE - POINT OF CARE Routine 06/16/2025 11:46 AM CDT GLUCOSE - POINT OF CARE Routine 06/16/2025 7:52 AM CDT GLUCOSE - POINT OF CARE Routine 06/16/2025 7:13 AM CDT COMPREHENSIVE METABOLIC PANEL Timed 06/16/2025 4:09 AM CDT PHOSPHORUS BLOOD Timed 06/16/2025 4:09 AM CDT MAGNESIUM BLOOD Timed 06/16/2025 4:09 AM CDT GLUCOSE - POINT OF CARE Routine 06/16/2025 1:51 AM CDT EKG 12-LEAD Routine 06/15/2025 11:11 PM CDT Normocytic anemia XR CHEST 1VW PORTABLE STAT 06/15/2025 11:02 PM CDT Hyponatremia TROPONIN-I HIGH SENSITIVE STAT 06/15/2025 11:00 PM CDT CBC W AUTO DIFFERENTIAL STAT 06/15/2025 10:58 PM CDT EKG 12-LEAD Routine 06/15/2025 10:41 PM CDT Hypokalemia GLUCOSE - POINT OF CARE Routine 06/15/2025 10:19 PM CDT GLUCOSE - POINT OF CARE Routine 06/15/2025 3:35 PM CDT TRANSFUSE RED BLOOD CELL LEUKOREDUCED UNIT(S) Routine 06/15/2025 1:10 PM CDT GLUCOSE - POINT OF CARE Routine 06/15/2025 11:45 AM CDT TYPE + SCREEN PANEL STAT 06/15/2025 11:18 AM CDT PREPARE RBC LEUKOREDUCED UNIT Routine 06/15/2025 11:18 AM CDT CBC W/O DIFFERENTIAL AM Draw 06/15/2025 6:13 AM CDT COMPREHENSIVE METABOLIC PANEL Timed 06/15/2025 6:13 AM CDT PHOSPHORUS BLOOD Timed 06/15/2025 6:13 AM CDT MAGNESIUM BLOOD Timed 06/15/2025 6:13 AM CDT GLUCOSE - POINT OF CARE Routine 06/15/2025 5:51 AM CDT GLUCOSE - POINT OF CARE Routine 06/14/2025 11:55 PM CDT SODIUM URINE RANDOM Routine 06/14/2025 5 :31 PM CDT OSMOLALITY URINE KELVIN 06/14/2025 5:31 PM CDT GLUCOSE - POINT OF CARE Routine 06/14/2025 5:05 PM CDT GLUCOSE - POINT OF CARE Routine 06/14/2025 11:45 AM CDT OSMOLALITY BLOOD Routine 06/14/2025 8:52 AM CDT GLUCOSE - POINT OF CARE Routine 06/14/2025 8:02 AM CDT CBC W/O DIFFERENTIAL AM Draw 06/14/2025 6:10 AM CDT LACTIC ACID BLOOD AM Draw 06/14/2025 6:1 0 AM CDT COMPREHENSIVE METABOLIC PANEL Timed 06/14/2025 6:10 AM CDT PHOSPHORUS BLOOD Timed 06/14/2025 6:10 AM CDT MAGNESIUM BLOOD Timed 06/14/2025 6:10 AM CDT GLUCOSE - POINT OF CARE Routine 06/14/2025 5:54 AM CDT GLUCOSE - POINT OF CARE Routine 06/14/2025 12:13 AM CDT GLUCOSE - POINT OF CARE Routine 06/13/2025 4:59 PM CDT GLUCOSE - POINT OF CARE Routine 06/13/2025 12:43 PM CDT COMPREHENSIVE METABOLIC PANEL Timed 06/13/2025 9:50 AM CDT PHOSPHORUS BLOOD Timed 06/13/2025 9:50 AM CDT MAGNESIUM BLOOD Timed 06/13/2025 9:50 AM CDT CBC W/O DIFFERENTIAL Routine 06/13/2025 9:49 AM CDT LACTIC ACID BLOOD AM Draw 06/13/2025 9:4 9 AM CDT GLUCOSE - POINT OF CARE Routine 06/13/2025 8:11 AM CDT GLUCOSE - POINT OF CARE Routine 06/13/2025 6:04 AM CDT GLUCOSE - POINT OF CARE Routine 06/13/2025 1:17 AM CDT GLUCOSE - POINT OF CARE Routine 06/12/2025 4:06 PM CDT GLUCOSE - POINT OF CARE Routine 06/12/2025 11:39 AM CDT GLUCOSE - POINT OF CARE Routine 06/12/2025 5:12 AM CDT LACTIC ACID BLOOD AM Draw 06/12/2025 4:1 6 AM CDT COMPREHENSIVE METABOLIC PANEL Timed 06/12/2025 4:16 AM CDT PHOSPHORUS BLOOD Timed 06/12/2025 4:16 AM CDT MAGNESIUM BLOOD Timed 06/12/2025 4:16 AM CDT GLUCOSE - POINT OF CARE Routine 06/11/2025 11:28 PM CDT RENAL FUNCTION PANEL Routine 06/11/2025 8:19 PM CDT GLUCOSE - POINT OF CARE Routine 06/11/2025 5:05 PM CDT LACTIC ACID BLOOD Timed 06/11/2025 12:28 PM CDT GLUCOSE - POINT OF CARE Routine 06/11/2025 12:24 PM CDT PTT Timed 06/11/2025 10:47 AM CDT MARCELLO BLOOD SCREEN W/REFLEX TITER Routine 06/11/2025 10:47 AM CDT LACTIC ACID BLOOD Timed 06/11/2025 10:47 AM CDT VAS BILATERAL VENOUS DUPLEX LE Routine 06/11/2025 10:35 AM CDT Altered mental status, unspecified altered mental status type CT HEAD WO CONTRAST Routine 06/11/2025 9 :21 AM CDT Altered mental status, unspecified altered mental status type GLUCOSE - POINT OF CARE Routine 06/11/2025 5:22 AM CDT DIFFERENTIAL MANUAL Routine 06/11/2025 1 :50 AM CDT COMPREHENSIVE METABOLIC PANEL Timed 06/11/2025 1:50 AM CDT PHOSPHORUS BLOOD Timed 06/11/2025 1:50 AM CDT MAGNESIUM BLOOD Timed 06/11/2025 1:50 AM CDT PT-INR Routine 06/11/2025 1:50 AM CDT CBC W AUTO DIFFERENTIAL Routine 06/11/2025 1:50 AM CDT PTT Timed 06/11/2025 1:50 AM CDT LACTIC ACID BLOOD Timed 06/11/2025 1:5 0 AM CDT GLUCOSE - POINT OF CARE Routine 06/10/2025 10:21 PM CDT TSH REFLEX FREE T4 Routine 06/10/2025 6: 11 PM CDT TRANSFERRIN Routine 06/10/2025 6:11 PM CDT SLA AUTOANTIBODY Routine 06/10/2025 6:11 PM CDT SMOOTH MUSCLE ANTIBODY W REFLEX TITER Routine 06/10/2025 6:11 PM CDT PROTEIN ELECTROPHORESIS WO INTERP BLOOD Routine 06/10/2025 6:11 PM CDT MITOCHONDRIAL ANTIBODY SCREEN Routine 06/10/2025 6:11 PM CDT LIPASE BLOOD Routine 06/10/2025 6:11 PM CDT IRON BLOOD Routine 06/10/2025 6:11 PM CDT FERRITIN Routine 06/10/2025 6:11 PM CDT ERYTHROCYTE SEDIMENTATION RATE Routine 06/10/2025 6:11 PM CDT CERULOPLASMIN Routine 06/10/2025 6:11 PM CDT AMYLASE BLOOD Routine 06/10/2025 6:11 PM CDT PTT Timed 06/10/2025 6:11 PM CDT LACTIC ACID BLOOD Timed 06/10/2025 6:1 1 PM CDT GLUCOSE - POINT OF CARE Routine 06/10/2025 4:55 PM CDT UREA NITROGEN URINE RANDOM Routine 06/10/2025 3:16 PM CDT CREATININE URINE RANDOM Routine 06/10/2025 3:16 PM CDT SODIUM URINE RANDOM Routine 06/10/2025 3 :16 PM CDT MAGNESIUM BLOOD Timed 06/10/2025 1:15 PM CDT LACTIC ACID BLOOD Timed 06/10/2025 1:1 5 PM CDT ECHO COMPLETE W CONTRAST Routine 06/10/2025 1:07 PM CDT Pulmonary embolism, other, unspecified chronicity, unspecified whether acute cor pulmonale present (HCC) CULTURE FUNGUS OTHER+FUNGUS SMEAR Routine 06/10/2025 1:01 PM CDT CULTURE WOUND+GRAM STAIN Routine 06/10/2025 1:01 PM CDT GLUCOSE - POINT OF CARE Routine 06/10/2025 12:27 PM CDT RENAL FUNCTION PANEL Routine 06/10/2025 11:18 AM CDT HGB HCT PANEL Routine 06/10/2025 11:18 AM CDT PTT Timed 06/10/2025 11:18 AM CDT US ABDOMEN LTD W COMP DOPPLER Routine 06/10/2025 11:03 AM CDT Hepatic cirrhosis, unspecified hepatic cirrhosis type, unspecified whether ascites present (HCC) GLUCOSE - POINT OF CARE Routine 06/10/2025 4:09 AM CDT DIFFERENTIAL MANUAL Routine 06/10/2025 4 :08 AM CDT LACTIC ACID BLOOD Timed 06/10/2025 4:0 8 AM CDT PTT Timed 06/10/2025 4:08 AM CDT COMPREHENSIVE METABOLIC PANEL Timed 06/10/2025 4:08 AM CDT PHOSPHORUS BLOOD Timed 06/10/2025 4:08 AM CDT MAGNESIUM BLOOD Timed 06/10/2025 4:08 AM CDT PT-INR Routine 06/10/2025 4:08 AM CDT CBC W AUTO DIFFERENTIAL Routine 06/10/2025 4:08 AM CDT VANCOMYCIN LEVEL RANDOM Routine 06/10/2025 4:08 AM CDT GLUCOSE - POINT OF CARE Routine 06/09/2025 11:50 PM CDT BLOOD TYPE VERIFICATION Routine 06/09/2025 9:30 PM CDT BLOOD GASES CHRISS + COOX PANEL Routine 06/09/2025 9:29 PM CDT HEMOGLOBIN A1C Timed 06/09/2025 9:29 PM CDT TYPE + SCREEN PANEL Routine 06/09/2025 8 :43 PM CDT CBC W/O DIFFERENTIAL STAT 06/09/2025 8:43 PM CDT LACTIC ACID BLOOD REFLEX TO REPEAT Timed STAT 06/09/2025 8:43 PM CDT B-TYPE NATRIURETIC PEPTIDE Timed 06/09/2025 8:43 PM CDT HEPATITIS B CORE ANTIBODY TOTAL Timed 06/09/2025 8:43 PM CDT HEPATITIS B SURFACE ANTIBODY QUANT Timed 06/09/2025 8:43 PM CDT HEPATITIS B SURFACE ANTIGEN W RFLX CONFIRMATION Timed 06/09/2025 8:43 PM CDT HIV-1 HIV-2 ANTIBODY + HIV P24 AG PANEL Timed 06/09/2025 8:43 PM CDT HEPATITIS C AB SCREEN RFLX NAAT QUANT Timed 06/09/2025 8:43 PM CDT TSH REFLEX FREE T4 Timed 06/09/2025 8: 43 PM CDT PTT Timed 06/09/2025 8:43 PM CDT LACTIC ACID BLOOD REFLEX TO REPEAT Timed STAT 06/09/2025 6:59 PM CDT PTT Timed 06/09/2025 6:59 PM CDT GLUCOSE - POINT OF CARE Routine 06/09/2025 3:34 PM CDT LACTIC ACID BLOOD REFLEX TO REPEAT STAT 06/09/2025 3:29 PM CDT PTT STAT 06/09/2025 2:03 PM CDT CARDIAC EKG ORDER 06/09/2025 1:5 5 PM CDT COMPREHENSIVE METABOLIC PANEL STAT 06/09/2025 7:54 AM CDT PT-INR STAT 06/09/2025 7:54 AM CDT PTT STAT 06/09/2025 7:54 AM CDT PTT Timed 06/09/2025 7:54 AM CDT CBC W AUTO DIFFERENTIAL STAT 06/09/2025 7:54 AM CDT LACTIC ACID BLOOD REFLEX TO REPEAT Timed STAT 06/09/2025 5:[address] CHEST ABDOMEN PELVIS W CONT STAT 06/09/2025 4:59 AM CDT Weakness Altered mental status, unspecified altered mental status type CT ANGIO BRAIN AND NECK STAT 06/09/2025 4:59 AM CDT Weakness XR CHEST 1VW PORTABLE STAT 06/09/2025 4:34 AM CDT Weakness Altered mental status, unspecified altered mental status type URINALYSIS REFLEX MICROSCOPIC REFLEX CULTURE STAT 06/09/2025 3:12 AM CDT CULTURE URINE STAT 06/09/2025 3:12 AM CDT TROPONIN-I HIGH SENSITIVE REFLEX 1HOUR Timed 06/09/2025 12:19 AM CDT LACTIC ACID BLOOD REFLEX TO REPEAT Timed STAT 06/09/2025 12:19 AM CDT CULTURE BLOOD Timed 06/08/2025 11:32 PM CDT TROPONIN-I HIGH SENSITIVE BASELINE + 1HR STAT 06/08/2025 11:26 PM CDT CULTURE BLOOD Timed 06/08/2025 11:26 PM CDT LACTIC ACID BLOOD REFLEX TO REPEAT STAT 06/08/2025 9:[address] BRAIN STROKE STAT 06/08/2025 9:39 PM CDT Weakness TROPONIN-I HIGH SENSITIVE STAT 06/08/2025 9:33 PM CDT PTT STAT 06/08/2025 9:33 PM CDT PT-INR STAT 06/08/2025 9:33 PM CDT COMPREHENSIVE METABOLIC PANEL STAT 06/08/2025 9:33 PM CDT CBC W AUTO DIFFERENTIAL STAT 06/08/2025 9:33 PM CDT from Last 3 Months Results * (ABNORMAL) GLUCOSE - POINT OF CARE (06/27/2025 8:28 AM CDT) Only the most recent of83 resultswithin the time period is included. Glucose WB/POC 152(H) 70 - 99 mg/dL 06/27/2025 8:[address] [facility] Specimen Type Arterial/C apillary 06/27/2025 8:30 AM [facility] Blood BLOOD SPECIMEN / Unknown 06/27/2025 8:28 AM CDT 06/27/2025 8:29 AM CDT us Prakash Ramirez MD LAB - POINT OF CARE ORDER RAHUL Final Result [facility] [address] [place] [address], [facility] [phone] * (ABNORMAL) CBC W AUTO DIFFERENTIAL (06/27/2025 7:45 AM CDT) Only the most recent of9 resultswithin the time period is included. WBC 2.8(L) 4.0 - 10.7 x10E9/L 06/27/2025 9:04 AM [facility] RBC Count 2.74(L) 4.30 - 5.80 x10E12/L 06/27/2025 9:04 AM [facility] Hemoglobin 8.4(L) 13.3 - 17.5 g/dL 06/27/2025 9:04 AM [facility] Hematocrit 25.4(L) 38.7 - 51.1 % 06/27/2025 9:04 AM [facility] MCV 92.7 80.0 - 98.0 fL 06/27/2025 9:04 AM [facility] MCH 30.7 26.7 - 33.6 pg 06/27/2025 9:04 AM [facility] MCHC 33.1 31.7 - 36.3 g/dL 06/27/2025 9:04 AM [facility] RDW-CV 20.2(H) 11.3 - 14.8 % 06/27/2025 9:04 AM [facility] Platelet Count 61(L) 150 - 420 x10E9/L 06/27/2025 9:04 AM [facility] MPV 10.0 7.8 - 11.4 fL 06/27/2025 9:04 AM [facility] Neutrophil % 53.1 41.0 - 74.0 % 06/27/2025 9:04 AM [facility] Lymphocyte % 27.9 17.0 - 47.0 % 06/27/2025 9:04 AM [facility] Monocyte % 14.9(H) 3.0 - 11.0 % 06/27/2025 9:04 AM [facility] Eosinophil % 3.3 0.0 - 7.0 % 06/27/2025 9:04 AM [facility] Basophil % 0.4 0.0 - 1.6 % 06/27/2025 9:04 AM [facility] Immature Granulocytes % 0.4 0.0 - 1.0 % 06/27/2025 9:04 AM [facility] Neutrophil Absolute 1.47(L) 1.60 - 7.50 x10E9/L 06/27/2025 9:04 AM [facility] Lymphocyte Absolute 0.77(L) 1.00 - 4.40 x10E9/L 06/27/2025 9:04 AM [facility] Monocyte Absolute 0.41 0.15 - 1.00 x10E9/L 06/27/2025 9:04 AM [facility] Eosinophil Absolute 0.09 0.00 - 0.60 x10E9/L 06/27/2025 9:04 AM [facility] Basophil Absolute 0.01 0.00 - 0.13 x10E9/L 06/27/2025 9:04 AM [facility] Blood BLOOD SPECIMEN / Unknown Lab Venipuncture / Unknown 06/27/2025 7:45 AM CDT 06/27/2025 8:38 AM CDT us Prakash Ramirez MD LAB - HEMATOLOGY ORDERABL ES Final Result [facility] [address] [place] [address], [facility] [phone] * (ABNORMAL) COMPREHENSIVE METABOLIC PANEL (06/27/2025 7:45 AM CDT) Only the most recent of21 resultswithin the time period is included. [facility] BUN 20 7 - 26 mg/dL 06/27/2025 9:07 AM [facility] Creatinine 0.98 0.71 - 1.16 mg/dL 06/27/2025 9:07 AM [facility] Sodium 136 136 - 145 mmol/L 06/27/2025 9:07 AM [facility] Potassium 3.5 3.5 - 4.5 mmol/L 06/27/2025 9:07 AM [facility] Chloride 101 98 - 107 mmol/L 06/27/2025 9:07 AM [facility] CO2 28 22 - 29 mmol/L 06/27/2025 9:07 AM [facility] Glucose 113(H) 70 - 99 mg/dL 06/27/2025 9:07 AM [facility] Calcium 7.8(L) 8.4 - 10.2 mg/dL 06/27/2025 9:07 AM [facility] Protein Total 5.3(L) 6.0 - 8.3 g/dL 06/27/2025 9:07 AM [facility] Albumin 2.0(L) 3.4 - 5.0 g/dL 06/27/2025 9:07 AM [facility] Bilirubin Total 2.3(H) 0.2 - 1.2 mg/dL 06/27/2025 9:07 AM [facility] Alkaline Phosphatase 119 40 - 150 U/L 06/27/2025 9:07 AM [facility] ALT 22 5 - 55 U/L 06/27/2025 9:07 AM [facility] AST 39(H) 5 - 34 U/L 06/27/2025 9:07 AM [facility] Anion Gap 7 6 - 16 06/27/2025 9:07 AM [facility] BUN/Creatinine Ratio 20 7 - 23 06/27/2025 9:07 AM [facility] Osmolality Calculated 285 275 - 295 mOsm/kg 06/27/2025 9:07 AM [facility] Albumin/Globulin Ratio 0.6(L) 1.1 - 2.3 06/27/2025 9:07 AM [facility] eGFR by CKD-EPI 77(L) >=90 mL/min/1.7 3 m2 06/27/2025 9:07 AM CDT [facility] Comment:Estimated Glomerular Filtration Rate (eGFR) calculated using the CKD-EPI Creatinine Equation (2020), per the National Kid[employer] Foundation and [place] [employer]ph[employer] recommendations. Blood BLOOD SPECIMEN / Unknown Lab Venipuncture / Unknown 06/27/2025 7:45 AM CDT 06/27/2025 8:38 AM CDT us Orville Esteban DO LAB - CHEMISTRY ORDERABLES Final Result [facility] [address] [place] [address], [place] [phone] * PHOSPHORUS BLOOD (06/27/2025 7:45 AM CDT) Only the most recent of19 resultswithin the time period is included. Phosphorus 2.9 2.8 - 5.1 mg/dL 06/27/2025 9:07 AM CDT [facility] Blood BLOOD SPECIMEN / Unknown Lab Venipuncture / Unknown 06/27/2025 7:45 AM CDT 06/27/2025 8:38 AM CDT us Orville Esteban DO LAB - CHEMISTRY ORDERABLES Final Result Performing Organization Address City/[facility]/ZIP Co de Phone Number [facility] [address] [place] [address], [place] [phone] * MAGNESIUM BLOOD (06/27/2025 7:45 AM CDT) Only the most recent of20 resultswithin the time period is included. Magnesium 1.7 1.6 - 2.6 mg/dL 06/27/2025 9:07 AM CDT [facility] Blood BLOOD SPECIMEN / Unknown Lab Venipuncture / Unknown 06/27/2025 7:45 AM CDT 06/27/2025 8:38 AM CDT us Orville Esteban DO LAB - CHEMISTRY ORDERABLES Final Result [facility] [address] [place] [address], [place] [phone] * (ABNORMAL) CYTOMEGALOVIRUS (CMV) QUANTITATIVE PLASMA (2025 5:32 AM CDT) CMV Quant By PCR, Blood <35(H) Not Detected IU/mL 2025 11:54 AM CDT [facility] CMV Quant by PCR, Interp Detected (<35 IU/mL)(A) Not detected 2025 11:54 AM CDT [facility] CMV Quant by PCR, Log <1.54 log IU/mL 2025 11:54 AM T [facility] Blood BLOOD SPECIMEN / Unknown Lab Venipuncture / Unknown 2025 5:32 AM CDT 2025 5:55 AM CDT Narrative [facility] - 2025 11:54 AM CDT The Cytomegalovirus (CMV) DNA analysis utilized a plasma sample, real-time PCR (qPCR), and is reported as Not Detected, Detected (<35 IU/mL), 35 - 10,000,000 IU/mL, or >10,000,000 IU/mL The analytic sensitivity (LOD) of the assay is 35 IU/mL. Linear range of the assay is 35 - 10,000,000 IU/ml. The detection/quantitation of CMV DNA in plasma is based on the isolation of CMV DNA followed by real-time PCR in the presence of an unrelated DNA internal control. The internal control ensures that DNA is isolated, and that no general significant inhibitors of the qPCR process are present. Absolute CMV values or breakpoints for symptomatic disease have not been established and appear to be different between patient populations and laboratories. Therefore, it is important to monitor patients and to follow increases and/or decreases in the level of CMV in multiple blood specimens.. The analysis was performed using a U.S. FDA approved test methodology Art casa CMV. Prakash Ramirez MD LAB - CHEMISTRY ORDERABLE S Final Result [facility] [address] [place] [address], [facility] [phone] * (ABNORMAL) JUAN-CHAPA VIRUS QUANT BLOOD STL (2025 5:32 AM CDT) EBV Quant by PCR, Blood 101(H) Not detected IU/mL 2025 11:56 AM CDT [facility] EBV Quant by PCR, Interp Detected(A ) Not detected 2025 11:56 AM CDT [facility] Specimen Type Plasma 2025 11:56 AM CDT [facility] EBV Quant by PCR, Log 2.00 log IU/mL 2025 11:56 AM CDT [facility] Blood BLOOD SPECIMEN / Unknown Lab Venipuncture / Unknown 2025 5:32 AM CDT 2025 5:55 AM CDT Narrative [facility] - 2025 11:56 AM CDT The Juan-Chapa viral (EBV) DNA analysis utilized a plasma sample, real-time PCR (qPCR), and is reported as Not Detected, Detected (<35 IU/mL), Quantity (IU/mL) or >100,000,000 IU/mL. The analytic sensitivity (LOD) of the assay is 35 IU/mL. The linear range is from 35 IU/mL to 100,000,000 IU/mL. Values less than 35 IU/mL are reported as Detected (<35 IU/mL). Values greater than 100,000,000 IU/mL are reported as >100,000,000 IU/mL. The detection/quantitation of EBV DNA in plasma is based on the isolation of EBV DNA followed by real-time PCR in the presence of an unrelated DNA internal control. The internal control ensures that DNA is isolated, and that no general significant inhibitors of the qPCR process are present. The analysis was performed using a U.S. FDA approved test methodology Art casa EBV. Prakash Ramirez MD LAB - CHEMISTRY ORDERABLE S Final Result [facility] [address] [place] [address], [facility] [phone] * EHRLICHIA SPECIES PCR (2025 5:32 AM CDT) [facility] Ehrlichia PCR Negative Negative 06/30/2025 11:11 AM [facility]T [facility] Comment:No Ehrlichia sp. DNA detected. Blood BLOOD SPECIMEN / Unknown Lab Venipuncture / Unknown 2025 5:32 AM CDT 2025 5:58 AM CDT Narrative [facility] ([facility]) - 06/30/2025 11:11 AM CDT Test(s) [id number] sp., PCR was developed and its performance characteristics determined by [facility]. It has not been cleared or approved by the Food and Drug Administration. Performed at: 01 - [address] [id number] Manager Wastewater: Nima Casillas MD, Phone: [phone] Prakash Ramirez MD LAB - SEROLOGY ORDERABLES Final Result Performing Organization Address City/[facility]/ZIP Co de Phone Number [facility] ([facility]) [address] [place] [address] * FOLATE (2025 5:32 AM CDT) [facility] Folate 12.7 7.0 - 31.4 ng/mL 2025 7:17 AM CDT [facility] Blood BLOOD SPECIMEN / Unknown Lab Venipuncture / Unknown 2025 5:32 AM CDT 2025 6:04 AM CDT Prakash Ramirez MD LAB - CHEMISTRY ORDERABLE S Final Result [address] [address], [facility] [phone] * (ABNORMAL) VITAMIN B12 (2025 5:32 AM CDT) [facility] Vitamin B12 >2,000(H) 213 - 816 pg/mL 2025 7:14 AM CDT [facility] Blood BLOOD SPECIMEN / Unknown Lab Venipuncture / Unknown 2025 5:32 AM CDT 2025 6:04 AM CDT us Prakash Ramirez MD LAB - CHEMISTRY ORDERABLE S Final Result Performing Organization Address [facility]/State/ZIP Co de Phone Number [facility] [address] [place] [address], [facility] [phone] * (ABNORMAL) URINALYSIS REFLEX TO MICROSCOPIC NO CULTURE (06/25/2025 4:52 PM CDT) Color UA Yellow Yellow, Straw 06/25/2025 5:08 PM [facility] Clarity UA Turbid(A) Clear 06/25/2025 5:08 PM [facility] Glucose UA Normal Normal 06/25/2025 5:08 PM [facility] Bilirubin UA Negative Negative 06/25/2025 5:08 PM [facility] Ketone UA Negative Negative 06/25/2025 5:08 PM [facility] Specific [place] UA 1.021 1.005 - 1.030 06/25/2025 5:08 PM [facility] Blood UA Negative Negative 06/25/2025 5:08 PM [facility] pH UA 5.5 5.0 - 8.0 06/25/2025 5:08 PM [facility] Protein UA Negative Negative 06/25/2025 5:08 PM [facility] Urobilinogen UA 12.0(A) Normal mg/dL 06/25/2025 5:08 PM [facility] Nitrite UA Negative Negative 06/25/2025 5:08 PM [facility] Leukocyte Esterase UA Negative Negative 06/25/2025 5:08 PM [facility] Urine Microscopy Urine microscopy not indicated 06/25/2025 5:08 PM [facility] Urine URINE SPECIMEN OBTAINED BY CLEAN CATCH PROCEDURE / Unknown Collection / Unknown 06/25/2025 4:52 PM CDT 06/25/2025 5:03 PM CDT Prakash Ramirez MD LAB - URINALYSIS ORDERABL ES Final Result [facility] [address] [place] [address], [place] [phone] * DIRECT JOANNA (06/24/2025 8:06 AM CDT) Direct Joanna (DAMIEN) NEG 06/24/2025 9:[address] [facility] BLOOD [facility] LAB Blood BLOOD SPECIMEN / Unknown Lab Venipuncture / Unknown 06/24/2025 8:06 AM CDT 06/24/2025 8:58 AM CDT Prakash Ramirez MD LAB - BLOOD BANK ORDERABL ES Final Result Performing Organization Address [facility]/ZIP Co de Phone Number [facility]LOOD [facility] LAB [address] [place] [address], [place] [phone] * (ABNORMAL) RETIC COUNT (06/24/2025 8:06 AM CDT) Reticulocyte Percent 5.03(H) 0.50 - 2.40 % 06/24/2025 9:19 AM CDT [facility] Reticulocyte Absolute 0.1363(H) 0.0200 - 0.1100 x10E6/uL 06/24/2025 9:19 AM CDT [facility] Ret-HE 36.6 29.0 - 37.9 pg 06/24/2025 9:19 AM CDT [facility] Immature Reticulocyte Fraction 30.0(H) 1.8 - 15.2 % 06/24/2025 9:19 AM CDT [facility] Blood BLOOD SPECIMEN / Unknown Lab Venipuncture / Unknown 06/24/2025 8:06 AM CDT 06/24/2025 9:02 AM CDT Prakash Ramirez MD LAB - HEMATOLOGY ORDERABL ES Final Result Performing Organization Address City/[facility]/ZIP Co de Phone Number [facility] [address] [place] [address], [place] [phone] * (ABNORMAL) CBC W/O DIFFERENTIAL (06/24/2025 6:10 AM CDT) Only the most recent of12 resultswithin the time period is included. WBC 3.4(L) 4.0 - 10.7 x10E9/L 06/24/2025 7:32 AM [facility] RBC Count 2.60(L) 4.30 - 5.80 x10E12/L 06/24/2025 7:32 AM [facility] Hemoglobin 8.0(L) 13.3 - 17.5 g/dL 06/24/2025 7:32 AM [facility] Hematocrit 23.2(L) 38.7 - 51.1 % 06/24/2025 7:32 AM [facility] MCV 89.2 80.0 - 98.0 fL 06/24/2025 7:32 AM [facility] MCH 30.8 26.7 - 33.6 pg 06/24/2025 7:32 AM [facility] MCHC 34.5 31.7 - 36.3 g/dL 06/24/2025 7:32 AM [facility] RDW-CV 19.6(H) 11.3 - 14.8 % 06/24/2025 7:32 AM [facility] Platelet Count 67(L) 150 - 420 x10E9/L 06/24/2025 7:32 AM [facility] MPV 10.2 7.8 - 11.4 fL 06/24/2025 7:32 AM [facility] Blood BLOOD SPECIMEN / Unknown Lab Venipuncture / Unknown 06/24/2025 6:10 AM CDT 06/24/2025 6:35 AM T us Naga Mak MD LAB - HEMATOLOGY ORDERABLE S Final Result [facility] [address] [place] [address], [facility] [phone] * (ABNORMAL) LDH BLOOD (06/24/2025 6:10 AM CDT) LDH Total 263(H) 125 - 243 Units/L 06/24/2025 8:15 AM CDT [facility] Blood BLOOD SPECIMEN / Unknown Lab Venipuncture / Unknown 06/24/2025 6:10 AM CDT 06/24/2025 7:57 AM CDT us Prakash Ramirez MD LAB - CHEMISTRY ORDERABLE S Final Result [address] [address], [place] [phone] * (ABNORMAL) BILIRUBIN DIRECT (06/24/2025 6:10 AM CDT) Bilirubin Conjugated 0.9(H) 0.1 - 0.5 mg/dL 06/24/2025 7:14 AM CDT [facility] Blood BLOOD SPECIMEN / Unknown Lab Venipuncture / Unknown 06/24/2025 6:10 AM CDT 06/24/2025 6:35 AM CDT us Prakash Ramirez MD LAB - CHEMISTRY ORDERABLE S Final Result [address] [address], [place] [phone] * HAPTOGLOBIN (06/24/2025 6:10 AM CDT) Haptoglobin 82 14 - 258 mg/dL 06/24/2025 8:16 AM CDT [facility] Blood BLOOD SPECIMEN / Unknown Lab Venipuncture / Unknown 06/24/2025 6:10 AM CDT 06/24/2025 7:57 AM CDT us Prakash Ramirez MD LAB - CHEMISTRY ORDERABLE S Final Result [address] [address], [place] [phone] * CT Abdomen Pelvis Wo Contrast (06/23/2025 3:34 PM CDT) Anatomical Region Laterality Modality Abdomen, Pelvis Computed Tomogra phy 06/23/2025 8:35 PM CDT Impressions 06/23/2025 9:19 PM CDT Impression: Extensive motion artifact throughout the study and lack of contrast limit evaluation. Within these limitation the following assessment is made. 1.Increased mesenteric stranding and edema in the central abdomen and surrounding the superior mesenteric vein extending to the periportal area of uncertain etiology, this is incompletely evaluated on this noncontrasted study. Portal thrombosis is a concern. MRI abdomen can be considered for further evaluation given the patient's iodinated contrast allergy. 2.No retroperitoneal hematoma identified. 3.New moderate volume right and small left pleural effusion. There is adjacent compressive atelectasis, superimposed infection is not excluded. 4.Redemonstrated cirrhotic liver with sequela of portal hypertension. > Dictated by Mundo Bennett MD (executive vice president). Preliminary findings were discussed in detail with the patient's care provider, Dr. Gan by Dr. Bennett via telephone at 9:00 PM on 06/23/2025 with readback comprehension and verification. > Dictated by Editing Clerk I, Arsalan Catherine MD have personally reviewed and interpreted this examination/study. > Interpreting Provider: Arsalan Catherine MD on 06/23/2025 9:19 PM Narrative 06/23/2025 9:19 PM CDT PROCEDURE: CT ABDOMEN PELVIS WO CONTRAST, DATE/TIME OF EXAM: 06/23/2025 3:35 PM, LOCATION [facility] INDICATION: R41.82: Altered mental status, unspecified altered mental status type K74.60: Hepatic cirrhosis, unspecified hepatic cirrhosis type, unspecified whether ascites present (HCC) D64.9: Normocytic anemia D69.6: Thrombocytopenia ADDITIONAL CLINICAL INFORMATION: Ordering Provider Reason For Exam: retroperitoneal bleed, decreasing blood counts Technologist Note: None Additional: None COMPARISON: CT chest abdomen pelvis 06/09/2025 TECHNIQUE: CT of the abdomen and pelvis was performed without contrast according to standard protocol. Findings: Evaluation of visceral and vascular structures is degraded due to lack of intravenous contrast administration. Extensive motion artifact throughout the study limits evaluation. Within this limitation the following assessment is made. Lower Chest: New moderate volume right and small left pleural effusions. There is adjacent compressive atelectasis. Superimposed infection in these regions is not excluded. Coronary artery calcifications. Right chest wall cardiac pacing device with intracardiac leads. Liver: Within the limitations of a noncontrast examination, redemonstrated cirrhotic pathology of the liver. There are numerous perisplenic varices and a splenorenal shunt. Gallbladder and Bile Ducts: There are small stones within the gallbladder. Layering hyperdense material in the gallbladder is likely vicariously excreted contrast. Spleen: Multiple calcified granulomas are noted in the spleen, likely sequelae of prior granulomatous disease. Splenomegaly. Pancreas: Atrophic with small calcifications within pancreatic parenchyma. Adrenals: Normal. Kidneys: Normal. Gastrointestinal: The stomach and visualized loops of large and small bowel are unremarkable. Normal appendix. There is a 8 mm stool ball in the rectum. Mesentery/Peritoneum/Retroperitoneum: There is increased mesenteric stranding/edema in the central abdomen surrounding the superior mesenteric vein extending to the periportal area of uncertain etiology (Series 3, Image 68). No pneumoperitoneum. No CT evidence of a significant retroperitoneal hematoma. Bladder: Normal. Reproductive Organs: Diminutive or absent. Vasculature: Atherosclerotic calcification of the aorta and its branch vessels. Bones: Bone windows demonstrate no suspicious lytic or blastic lesions. The visible osseous structures are intact. Degenerative changes are seen in the spine. Soft tissues: Small bilateral inguinal hernias containing fat. Mild diffuse body wall edema. Procedure Note Arsalan Catherine MD - 06/23/2025 PROCEDURE: CT ABDOMEN PELVIS WO CONTRAST, DATE/TIME OF EXAM: 06/23/2025 3:35 PM, LOCATION [facility] INDICATION: R41.82: Altered mental status, unspecified altered mental status type K74.60: Hepatic cirrhosis, unspecified hepatic cirrhosis type,unspecified whether ascites present (HCC) D64.9: Normocytic anemia D69.6: Thrombocytopenia ADDITIONAL CLINICAL INFORMATION: Ordering Provider Reason For Exam: retroperitoneal bleed, decreasingblood counts Technologist Note: None Additional: None COMPARISON: CT chest abdomen pelvis 06/09/2025 TECHNIQUE: CT of the abdomen and pelvis was performed without contrast according to standard protocol. Findings: Evaluation of visceral and vascular structures is degraded due to lackof intravenous contrast administration. Extensive motion artifactthroughout the study limits evaluation. Within this limitation the following assessment is made. Lower Chest: New moderate volume right and small left pleural effusions. There is adjacent compressive atelectasis. Superimposed infection in theseregions is not excluded. Coronary artery calcifications. Right chest wallcardiac pacing device with intracardiac leads. Liver: Within the limitations of a noncontrast examination, redemonstrated cirrhotic pathology of the liver. There are numerous perisplenic varices and a splenorenal shunt. Gallbladder and Bile Ducts: There are small stones within the gallbladder. Layering hyperdensematerial in the gallbladder is likely vicariously excreted contrast. Spleen: Multiple calcified granulomas are noted in the spleen, likely sequelaeof prior granulomatous disease. Splenomegaly. Pancreas: Atrophic with small calcifications within pancreatic parenchyma. Adrenals: Normal. Kidneys: Normal. Gastrointestinal: The stomach and visualized loops of large and small bowel areunremarkable. Normal appendix. There is a 8 mm stool ball in the rectum. Mesentery/Peritoneum/Retroperitoneum: There is increased mesenteric stranding/edema in the central abdomen surrounding the superior mesenteric vein extending to the periportalarea of uncertain etiology (Series 3, Image 68). No pneumoperitoneum. No CT evidence of a significant retroperitoneal hematoma. Bladder: Normal. Reproductive Organs: Diminutive or absent. Vasculature: Atherosclerotic calcification of the aorta and its branch vessels. Bones: Bone windows demonstrate no suspicious lytic or blastic lesions. The visible osseous structures are intact. Degenerative changes are seen inthe spine. Soft tissues: Small bilateral inguinal hernias containing fat. Mild diffuse body wall edema. Impression: Extensive motion artifact throughout the study and lack of contrastlimit evaluation. Within these limitation the following assessment is made. 1.Increased mesenteric stranding and edema in the central abdomen and surrounding the superior mesenteric vein extending to the periportalarea of uncertain etiology, this is incompletely evaluated on thisnoncontrasted study. Portal thrombosis is a concern. MRI abdomen can be considered for further evaluation given the patient's iodinated contrast allergy. 2.No retroperitoneal hematoma identified. 3.New moderate volume right and small left pleural effusion. There is adjacent compressive atelectasis, superimposed infection is notexcluded. 4.Redemonstrated cirrhotic liver with sequela of portal hypertension. > Dictated by Mundo Bennett MD (executive vice president). Preliminary findings were discussed in detail with the patient's care provider, Dr. Gan by Dr. Bennett via telephone at 9:00 PM on 06/23/2025 with readback comprehension and verification. > Dictated by Editing Clerk I, Arsalan Catherien MD have personally reviewed and interpreted this examination/study. > Interpreting Provider: Arsalan Catherine MD on 06/23/2025 9:19 PM us Prakash Ramirez MD CT ORDERABLES Final Res ult * (ABNORMAL) D-DIMER (06/23/2025 6:08 AM CDT) D-Dimer Quantitative 1.22(H) <=0.50 mcg/mL FEU 06/23/2025 6:[address] [facility] Comment: In the absence of clinical symptoms, a value less than or equal to 0.5 mcg/mL FEU significantly decreases the probability of PE/DVT (negative predictive value >95%). 1 mcg/mL FEU = 1 Fibrinogen Equivalent Unit (approximates 0.5 mcg/ml of D- Dimer). ISTH DIAGNOSTIC SCORING SYSTEM FOR DIC Score 0 1 2 3 Platelet Count(x10^3/uL) > 100 < 100 < 50 N/A PT Prolongation above upper limit of normal 0-3 3-6 > 6 N/A range (seconds) Fibrinogen (mg/dL) > 100 < 100 N/A N/A D-Dimer (mcg/mL FEU) < 0.50 N/A 0.50-5.0 > 5 Calculate Cumulative Score: > or = 5 :compatible with overt DIC < 5 :suggestive for non-overt DIC N/A = Non applicable Reference: Br. J. Haematol. 145:24-33,2009. Blood BLOOD SPECIMEN / Unknown Lab Venipuncture / Unknown 06/23/2025 6:08 AM CDT 06/23/2025 6:25 AM CDT us Nadia Whitlock MD LAB - COAGULATION ORDERABLES Final Result Performing Organization Address [facility]/ZIP Co de Phone Number [address] [address], [facility] [phone] * (ABNORMAL) FIBRINOGEN ACTIVITY (06/23/2025 6:08 AM CDT) Fibrinogen Clauss 402(H) 200 - 400 mg/dL 06/23/2025 6:49 AM CDT [facility] Blood BLOOD SPECIMEN / Unknown Lab Venipuncture / Unknown 06/23/2025 6:08 AM CDT 06/23/2025 6:25 AM CDT us Nadia Whitlock MD LAB - COAGULATION ORDERABLES Final Result [address] [address], [facility] [phone] * (ABNORMAL) PTT (06/23/2025 6:08 AM CDT) Only the most recent of12 resultswithin the time period is included. APTT 49.8(H) 23.0 - 38.4 Seconds 06/23/2025 6:49 AM CDT [facility] Comment:Suggested therapeuti c range for full dose I.V. unfractionated heparin therapy for venous thromboembolism is 71 to 109 seconds. Blood BLOOD SPECIMEN / Unknown Lab Venipuncture / Unknown 06/23/2025 6:08 AM CDT 06/23/2025 6:25 AM CDT us Nadia Whitlock MD LAB - COAGULATION ORDERABLES Final Result Performing Organization Address [facility] Co de Phone Number [address] [address], [facility] [phone] * (ABNORMAL) PT-INR (06/23/2025 6:08 AM CDT) Only the most recent of5 resultswithin the time period is included. PT 16.2(H) 12.1 - 14.8 Seconds 06/23/2025 6:49 AM CDT [facility] INR 1.3 See Comment 06/23/2025 6:49 AM CDT [facility] Comment:The suggested therap eutic range for standard coumadin (warfarin) therapy is an INR of 2.0-3.0. For high-risk patients (Mechanical Mitral Valve Prosthesis, etc.), the suggested prophylactic therapeutic range is an INR of 2.5-3.5. Blood BLOOD SPECIMEN / Unknown Lab Venipuncture / Unknown 06/23/2025 6:08 AM CDT 06/23/2025 6:25 AM CDT us Nadia Whitlock MD LAB - COAGULATION ORDERABLES Final Result Performing Organization Address City/[facility]/ZIP Co de Phone Number [address] [phone] [phone] * EGD (06/22/2025 4:34 PM CDT) Report Endoscopy POC Endoscopy Department Report _ Patient Name: Clyde Rico Procedure Date: 06/22/2025 4:34 PM Date of : 1945 Classification: Inpatient Gender: Male Ethnicity: Not or Race: White _ Providers: Brain Boyle MD Referring MD: Procedure: Upper GI endoscopy Indications: Acute post hemorrhagic anemia Medications: Monitored Anesthesia Care Description of Procedure: After obtaining informed consent, the endoscope was passed under direct vision. Throughout the procedure, the patient's blood pressure, pulse, and oxygen saturations were monitored continuously. The [id number] was introduced through the mouth, and advanced to the second part of duodenum. The upper GI endoscopy was accomplished without difficulty. The patient tolerated the procedure well. Findings: The examined esophagus was normal. There is no endoscopic evidence of esophagitis or varices in the lower third of the esophagus. The entire examined stomach was normal. There is no endoscopic evidence of bleeding, ulceration or varices in the stomach. The examined duodenum was normal. The cardia and gastric fundus were normal on retroflexion. Estimated Blood Loss: Estimated blood loss: none. Complications: No immediate complications. Impression: - Normal esophagus. - Normal stomach. - Normal examined duodenum. - No specimens collected. Recommendation: - Advance diet as tolerated. - Consider soft tissue bleeding as cause of drop in hemoglobin (bruises in the back). May consider non-contrast CT . - D/C Octreotide. Attending Participation: I personally performed the entire procedure. Procedure Code(s): --- Professional --- 56307, Esophagogastroduod enoscopy, flexible, transoral; diagnostic, including collection of specimen(s) by brushing or washing, when performed (separate procedure) Diagnosis Code(s): --- Professional --- D62, Acute posthemorrhagic anemia CPT copyright 2021 [place]. All rights reserved. The codes documented in this report are preliminary and upon insurance coder review may be revised to meet current compliance requirements. _ Brain Boyle MD 06/22/2025 5:11:40 PM Note Initiated On: 06/22/2025 4:34 PM Number of Addenda: 0 [facility] [address] [place] [address] [facility] 06/22/2025 4:34 PM CDT us Brain Boyle MD GI PROCEDURE ORDERABLES Edite d Result - Final Performing Organization Address City/[facility]/[place] de Phone Number [facility] * (ABNORMAL) HGB HCT PANEL (06/22/2025 3:36 PM CDT) Only the most recent of3 resultswithin the time period is included. Hemoglobin 8.2(L) 13.3 - 17.5 g/dL 06/22/2025 3:59 PM CDT [facility] Hematocrit 24.3(L) 38.7 - 51.1 % 06/22/2025 3:59 PM CDT [facility] Blood BLOOD SPECIMEN / Unknown Lab Venipuncture / Unknown 06/22/2025 3:36 PM CDT 06/22/2025 3:50 PM CDT Nadia Whitlock MD LAB - HEMATOLOGY ORDERABLES F inal Result Performing Organization Address [facility]/ZIP Co de Phone Number [facility] [address] [place] [address], [facility] [phone] * TRANSFUSE RED BLOOD CELL LEUKOREDUCED UNIT(S) (06/22/2025 2:37 PM CDT) Result oRcio Whitlock MD NURSING - BLOOD PROD TRANSFUS ION Final Result * TSH REFLEX FREE T4 (06/22/2025 7:29 AM CDT) Only the most recent of3 resultswithin the time period is included. TSH 3.778 0.350 - 4.940 uIU/mL 06/22/2025 9:05 AM CDT [facility] Blood BLOOD SPECIMEN / Unknown Lab Venipuncture / Unknown 06/22/2025 7:29 AM CDT 06/22/2025 8:32 AM CDT us Nadia Whitlock MD LAB - CHEMISTRY ORDERABLES Fi nal Result Performing Organization Address City/[facility]/ZIP Co de Phone Number [address] [address], [facility] [phone] * CORTISOL BLOOD AM (06/22/2025 7:29 AM CDT) Cortisol AM 9.5 3.7 - 19.4 ug/dL 06/22/2025 9:04 AM CDT [facility] Blood BLOOD SPECIMEN / Unknown Lab Venipuncture / Unknown 06/22/2025 7:29 AM CDT 06/22/2025 8:32 AM CDT Narrative [facility] - 06/22/2025 9:04 AM CDT Normal cortisol levels are generally highest in the morning hours and lowest from late evening through the fisher hours (8 PM to 4 AM). The PM measurements of cortisol run approximately one-half to one-third of the AM values. Result Rocio Whitlock MD LAB - CHEMISTRY ORDERABLES Fi nal Result Performing Organization Address City/[facility]/ZIP Co de Phone Number [address] [address], [place] [phone] * OSMOLALITY URINE (06/21/2025 1:19 PM CDT) Only the most recent of3 resultswithin the time period is included. Osmolality Urine 351 50 - 1,200 mOsm/kg 06/21/2025 2:[address] [facility] Urine URINE SPECIMEN OBTAINED BY CLEAN CATCH PROCEDURE / Unknown Collection / Unknown 06/21/2025 1:19 PM CDT 06/21/2025 1:46 PM CDT Nadia Whitlock MD LAB - URINE CHEMISTRY ORDERAB LES Final Result [address] [address], [place] [phone] * LYTES (NA K CL) URINE RANDOM PANEL (06/21/2025 1:19 PM CDT) Only the most recent of2 resultswithin the time period is included. Sodium Urine <20 Not Established mmol/L 06/21/2025 2:13 PM CDT [facility] Potassium Urine 43.0 Not Established mmol/L 06/21/2025 2:13 PM CDT [facility] Chloride Random Urine <20 Not Established mmol/L 06/21/2025 2:13 PM CDT [facility] Urine URINE SPECIMEN OBTAINED BY CLEAN CATCH PROCEDURE / Unknown Collection / Unknown 06/21/2025 1:19 PM CDT 06/21/2025 1:46 PM CDT Nadia Whitlock MD LAB - URINE CHEMISTRY ORDERAB LES Final Result [address] [address], [place] [phone] * (ABNORMAL) BASIC METABOLIC PANEL (CALCIUM TOTAL) (06/20/2025 6:17 PM CDT) BUN 32(H) 7 - 26 mg/dL 06/20/2025 6:56 PM CDT [facility] Creatinine 1.23(H) 0.71 - 1.16 mg/dL 06/20/2025 6:56 PM [facility] Sodium 124(LL) 136 - 145 mmol/L 06/20/2025 6:56 PM [facility] Potassium 4.2 3.5 - 4.5 mmol/L 06/20/2025 6:56 PM [facility] Chloride 92(L) 98 - 107 mmol/L 06/20/2025 6:56 PM [facility] CO2 24 22 - 29 mmol/L 06/20/2025 6:56 PM [facility] Glucose 154(H) 70 - 99 mg/dL 06/20/2025 6:56 PM [facility] Calcium 7.5(L) 8.4 - 10.2 mg/dL 06/20/2025 6:56 PM [facility] Anion Gap 8 6 - 16 06/20/2025 6:56 PM [facility] BUN/Creatinine Ratio 26(H) 7 - 23 06/20/2025 6:56 PM [facility] Osmolality Calculated 268(L) 275 - 295 mOsm/kg 06/20/2025 6:56 PM [facility] eGFR by CKD-EPI 59(L) >=90 mL/min/1.7 3 m2 06/20/2025 6:56 PM [facility] Comment:Estimated Glomerular Filtration Rate (eGFR) calculated using the CKD-EPI Creatinine Equation (2020), per the [employer] and [place] [employer] recommendations. Blood BLOOD SPECIMEN / Unknown Lab Venipuncture / Unknown 06/20/2025 6:17 PM CDT 06/20/2025 6:41 PM CDT us Nadia Whitlock MD LAB - CHEMISTRY ORDERABLES Fi nal Result [address] [address], [facility] [phone] * AMMONIA (06/20/2025 6:06 AM T) Ammonia 70 <=72 umol/L 06/20/2025 6:30 AM [facility] Blood BLOOD SPECIMEN / Unknown Lab Venipuncture / Unknown 06/20/2025 6:06 AM CDT 06/20/2025 6:19 AM CDT us Nadia Whitlock MD LAB - CHEMISTRY ORDERABLES Fi nal Result [address] [address], [facility] [phone] * CT Angio Brain Neck Stroke (06/19/2025 6:17 PM CDT) Anatomical Region Laterality Modality Head Computed Tomogra phy 06/19/2025 6:30 PM CDT Impressions 06/19/2025 8:04 PM CDT IMPRESSION: Motion degraded exam. Within this limitation: 1.Atherosclerotic disease of the extracranial and intracranial arterial vessels as outlined. 2.No large arterial occlusions or hemodynamically significant significant stenoses identified in the head or neck. 3.Please note that CT is insensitive to nonhemorrhagic strokes and MRI of the brain should be considered, if there is clinical concern for acute cerebral infarction. 4.Redemonstration of right pulmonary embolism. Partially imaged mass like lesion in the right lung. 5.Please refer to the prior CT of the chest from 06/09/2025 for additional details. Repeat CT of the chest could be obtained for further evaluation if clinically warranted. Disclaimer: 1.Brain areas including the cerebral sulci, the dural sinuses, the cavernous sinuses, the basilar artery/posterior circulation, the craniocervical junction, and the brain stem, may not be well evaluated on noncontrast CT. MRI of the brain is more sensitive for parenchymal changes related to the above-mentioned brain regions. If there is clinical concern for pathology involving the above-mentioned areas, MRI of the brain is recommended for further evaluation. Viz.AI was used for large vessel occlusion detection. > Interpreting Provider: Destinee Lambert MD on 06/19/2025 8:04 PM Narrative 06/19/2025 8:04 PM CDT PROCEDURE: CT ANGIO BRAIN NECK STROKE, DATE/TIME OF EXAM: 06/19/2025 6:18 PM, LOCATION [facility] INDICATION: R40.4: Transient alteration of awareness ADDITIONAL CLINICAL INFORMATION: Ordering Provider Reason For Exam: Transient alteration of awareness Technologist Note: None. Additional: 79 year old male with a PMH significant for CAD s/p PCI, heart failure with preserved ejection fraction, TIA, SSS s/p pacemaker, hypertension dyslipidemia type 2 diabetes prostate cancer MATHEUS presenting from his residential for generalized weakness and AMS. On admission blood work was remarkable for AST of 41, with ALT of 28, T bili of 2.9, INR 1.2, platelets 75. CT chest abdomen pelvis showed PE and hepatic cirrhosis with sequela of portal hypertension including splenomegaly, perisplenic varices, splenorenal shunt. Patient was admitted for management of PE and DVTs with Eliquis. During his stay, hemoglobin was noted to be dropping from baseline of 12, requiring blood transfusions on 06/15 and 06 19. Iron ferritin and transferrin were within normal limits. For which were consulted. On chart review, we noted previous abdominal imaging in 2019 showing normal liver. Platelets have been persistently low and decreasing since 2019. ALT and AST were 1st noted to be slightly elevated in 08/2024. No previous history of excessive alcohol use, denies smoking or drugs. Patient is obese and has a BMI of 34.7. No known family history of liver diseases. EXAMINATION: 1. Computed tomographic (CT) angiography of the head without and with contrast 2. CT angiography of the neck with contrast CONTRAST: IOPAMIDOL 76 % IV SOLN:75 mL TECHNIQUE: CT of the head was performed without contrast according to standard protocol. Then CT angiography of the head and neck was obtained after the uneventful administration of 75 mL [id number]-370 intravenous contrast. Three dimensional postprocessing was performed by the technologist and sent to the workstation for review. Stenosis measurements are based on NASCET criteria. CT dose reduction technique was used, including Automated Exposure Control. COMPARISON: CT angiography of the head and neck from 06/09/2025. FINDINGS: Non-angiographic findings: Please refer to the separately dictated noncontrast head CT for the non-angiographic findings. There is a soft tissue mass in the right lung that's partially imaged. Please refer to the prior CT of the chest on 06/09/2025 for additional details. Repeat CT chest could be obtained if clinically warranted. Right-sided pulmonary embolism is again noted. Angiographic findings: Images are degraded due to motion artifacts. Within this limitation: There is atherosclerotic disease of the aortic arch. The configuration of the brachiocephalic vessels is typical. There is atherosclerotic calcification of the innominate and subclavian arteries. There is atherosclerotic disease of the right carotid bifurcation and origin of the right internal carotid artery with less than 50 percent focal stenosis by NASCET criteria. The right common and internal carotid arteries otherwise appear normal. There is atherosclerotic disease of the left carotid bifurcation and origin of the left internal carotid artery with less than 50 percent focal stenosis by NASCET criteria. The left common and internal carotid arteries otherwise appear normal. There is atherosclerotic disease involving the cervical vertebral arteries without significant focal stenosis. There is atherosclerotic disease involving the distal internal carotid arteries without significant focal stenosis. Decreased caliber and mild beading appearance of the middle cerebral arteries. Asymmetrically smaller caliber A1 segment of the left anterior cerebral artery compared to the contralateral side. The anterior and middle cerebral arteries appear otherwise patent. There is atherosclerotic disease involving the distal vertebral arteries without significant focal stenosis. The basilar artery and posterior cerebral arteries appear normal with origin of the left posterior cerebral artery. No aneurysms, vascular occlusions, or hemodynamically significant intracranial stenoses are identified. Procedure Note Destinee Lambert MD - 06/19/2025 PROCEDURE: CT ANGIO BRAIN NECK STROKE, DATE/TIME OF EXAM: 56:18 PM, LOCATION [facility] INDICATION: R40.4: Transient alteration of awareness ADDITIONAL CLINICAL INFORMATION: Ordering Provider Reason For Exam: Transient alteration of awareness Technologist Note: None. Additional: 79 year old male with a PMH significant for CAD s/p PCI,heart failure with preserved ejection fraction, TIA, SSS s/p pacemaker, hypertension dyslipidemia type 2 diabetes prostate cancer MATHEUS presenting from his residential for generalized weakness and AMS. On admissionblood work was remarkable for AST of 41, with ALT of 28, T bili of 2.9, INR1.2, platelets 75. CT chest abdomen pelvis showed PE and hepatic cirrhosiswith sequela of portal hypertension including splenomegaly, perisplenicvarices, splenorenal shunt. Patient was admitted for management of PE and DVTraymond Lopez. During his stay, hemoglobin was noted to be dropping frombaseline of 12, requiring blood transfusions on 06/15 and 8 8. Iron ferritin and transferrin were within normal limits. For which were consulted. Onchart review, we noted previous abdominal imaging in 2019 showing normal liver. Platelets have been persistently low and decreasing since 2019. ALT and AST were 1st noted to be slightly elevated in 08/2024. No previoushistory of excessive alcohol use, denies smoking or drugs. Patient is obese and has a BMI of 34.7. No known family history of liver diseases. EXAMINATION: 1. Computed tomographic (CT) angiography of the head without and with contrast 2. CT angiography of the neck with contrast CONTRAST: IOPAMIDOL 76 % IV SOLN:75 mL TECHNIQUE: CT of the head was performed without contrast according to standard protocol. Then CT angiography of the head and neck was obtained after the uneventful administration of 75 mL Isovue-370 intravenous contrast. Three dimensional postprocessing was performed by the technologist and sent to the workstation for review. Stenosismeasurements are based on NASCET criteria. CT dose reduction technique was used, including Automated Exposure Control. COMPARISON: CT angiography of the head and neck from 06/09/2025. FINDINGS: Non-angiographic findings: Please refer to the separately dictated noncontrast head CT for the non-angiographic findings. There is a soft tissue mass in the right lung that's partially imaged. Please refer to the prior CT of the chest on 06/09/2025 for additional details. Repeat CT chest could be obtained if clinically warranted. Right-sided pulmonary embolism is again noted. Angiographic findings: Images are degraded due to motion artifacts.Within this limitation: There is atherosclerotic disease of the aortic arch. The configurationof the brachiocephalic vessels is typical. There is atherosclerotic calcification of the innominate and subclavian arteries. There is atherosclerotic disease of the right carotid bifurcation and origin ofthe right internal carotid artery with less than 50 percent focal stenosisby NASCET criteria. The right common and internal carotid arteriesotherwise appear normal. There is atherosclerotic disease of the left carotid bifurcation and origin of the left internal carotid artery with lessthan 50 percent focal stenosis by NASCET criteria. The left common andinternal carotid arteries otherwise appear normal. There is atheroscleroticdisease involving the cervical vertebral arteries without significant focal stenosis. There is atherosclerotic disease involving the distal internal carotid arteries without significant focal stenosis. Decreased caliber and mild beading appearance of the middle cerebral arteries. Asymmetricallysmaller caliber A1 segment of the left anterior cerebral artery compared to the contralateral side. The anterior and middle cerebral arteries appear otherwise patent. There is atherosclerotic disease involving the distal vertebral arteries without significant focal stenosis. The basilarartery and posterior cerebral arteries appear normal with origin of theleft posterior cerebral artery. No aneurysms, vascular occlusions, or hemodynamically significant intracranial stenoses are identified. IMPRESSION: Motion degraded exam. Within this limitation: 1.Atherosclerotic disease of the extracranial and intracranial arterial vessels as outlined. 2.No large arterial occlusions or hemodynamically significantsignificant stenoses identified in the head or neck. 3.Please note that CT is insensitive to nonhemorrhagic strokes and MRIof the brain should be considered, if there is clinical concern for acute cerebral infarction. 4.Redemonstration of right pulmonary embolism. Partially imaged masslike lesion in the right lung. 5.Please refer to the prior CT of the chest from 06/09/[address] of the chest could be obtained for further evaluationif clinically warranted. Disclaimer: 1.Brain areas including the cerebral sulci, the dural sinuses, the cavernous sinuses, the basilar artery/posterior circulation, the craniocervical junction, and the brain stem, may not be well evaluatedon noncontrast CT. MRI of the brain is more sensitive for parenchymalchanges related to the above-mentioned brain regions. If there is clinicalconcern for pathology involving the above-mentioned areas, MRI of the brain is recommended for further evaluation. Viz.AI was used for large vessel occlusion detection. > Interpreting Provider: Destinee Lambert MD on 06/19/2025 8:04 PM Nadia Whitlock MD CT ORDERABLES Final Result * CT Brain Stroke (06/19/2025 5:41 PM CDT) Only the most recent of2 resultswithin the time period is included. Anatomical Region Laterality Modality Head Computed Tomogra phy 06/19/2025 5:43 PM CDT Impressions 06/19/2025 5:54 PM CDT IMPRESSION: 1. No acute intracranial process, although the posterior fossa is degraded by streaky and beam hardening artifacts. 2. Chronic small vessel ischemic disease of the brain with cerebral volume loss. These findings were discussed in detail with the patient's care provider, Dr. Wilson by Dr. Rae via telephone at 06/19/2025 5:45 PM with readback comprehension and verification. > Interpreting Provider: Talha Rae MD on 06/19/2025 5:54 PM Narrative 06/19/2025 5:54 PM CDT PROCEDURE: CT BRAIN STROKE, DATE/TIME OF EXAM: 06/19/2025 5:41 PM, LOCATION [facility] INDICATION: K74.69: Other cirrhosis of liver (HCC) ADDITIONAL CLINICAL INFORMATION: Ordering Provider Reason For Exam: Rule out stroke Technologist Note: Additional: TECHNIQUE: CT of the head was performed without contrast according to standard protocol. CONTRAST: COMPARISON: 06/11/2025. FINDINGS: The study is degraded by the presence of a streaky and beam hardening artifacts in the posterior fossa. No acute intracranial hemorrhage or intra- or extra-axial fluid collections are identified. There is mild cerebral volume loss with associated ex vacuo ventricular dilatation. The basal cisterns are patent. No mass effect or midline shift is seen. The wright-white matter differentiation is normal. Periventricular white matter hypoattenuation is a nonspecific finding that may be indicative of chronic small vessel ischemic disease. There is atherosclerotic calcification of the carotid siphons. Other than bilateral cataract extractions, the visualized portions of the orbits, paranasal sinuses, and mastoids appear normal. No acute calvarial fracture is identified. Procedure Note Talha Rae MD - 06/19/2025 PROCEDURE: CT BRAIN STROKE, DATE/TIME OF EXAM: 06/19/2025 5:41 PM,LOCATION [facility] INDICATION: K74.69: Other cirrhosis of liver (HCC) ADDITIONAL CLINICAL INFORMATION: Ordering Provider Reason For Exam: Rule out stroke Technologist Note: Additional: TECHNIQUE: CT of the head was performed without contrast according to standard protocol. CONTRAST: COMPARISON: 06/11/2025. FINDINGS: The study is degraded by the presence of a streaky and beam hardening artifacts in the posterior fossa. No acute intracranial hemorrhage or intra- or extra-axial fluidcollections are identified. There is mild cerebral volume loss with associated exvacuo ventricular dilatation. The basal cisterns are patent. No mass effect or midline shift is seen. The wright-white matter differentiation is normal. Periventricular white matter hypoattenuation is a nonspecific findingthat may be indicative of chronic small vessel ischemic disease. There is atherosclerotic calcification of the carotid siphons. Other than bilateral cataract extractions, the visualized portions ofthe orbits, paranasal sinuses, and mastoids appear normal. No acute calvarial fracture is identified. IMPRESSION: 1. No acute intracranial process, although the posterior fossa isdegraded by streaky and beam hardening artifacts. 2. Chronic small vessel ischemic disease of the brain with cerebralvolume loss. These findings were discussed in detail with the patient's careprovider, Dr. Wilson by Dr. Rae via telephone at 06/19/2025 5:45 PM with readback comprehension and verification. > Interpreting Provider: Talha Rae MD on 06/19/2025 5:54 PM Nadia Whitlock MD CT ORDERABLES Final Result * TROPONIN-I HIGH SENSITIVE (06/19/2025 5:17 PM CDT) Only the most recent of3 resultswithin the time period is included. Troponin I High Sensitive <3 <=35 ng/L 06/19/2025 6:04 PM CDT [facility] Blood BLOOD SPECIMEN / Unknown Lab Venipuncture / Unknown 06/19/2025 5:17 PM CDT 06/19/2025 5:24 PM CDT Nadia Whitlock MD LAB - CHEMISTRY ORDERABLES Fi nal Result [address] [address], [facility] [phone] * HYDROXYBUTYRATE BETA (06/19/2025 5:17 PM CDT) Beta-Hydroxybu tyrate <0.50 <0.50 mmol/L 06/19/2025 6:01 PM CDT [facility] Blood BLOOD SPECIMEN / Unknown Lab Venipuncture / Unknown 06/19/2025 5:17 PM CDT 06/19/2025 5:24 PM CDT us Nadia Whitlock MD LAB - CHEMISTRY ORDERABLES Fi nal Result [address] [address], [place] [phone] * (ABNORMAL) LACTIC ACID BLOOD (06/19/2025 5:17 PM CDT) Only the most recent of10 resultswithin the time period is included. Lactic Acid-Stat 2.8(H) <=2.0 mmol/L 06/19/2025 5:51 PM CDT [facility] Blood BLOOD SPECIMEN / Unknown Lab Venipuncture / Unknown 06/19/2025 5:17 PM CDT 06/19/2025 5:24 PM CDT us Nadia Whitlock MD LAB - CHEMISTRY ORDERABLES Fi nal Result Performing Organization Address City/[facility]/ZIP Co de Phone Number [address] [address], [place] [phone] * IRON + TRANSFERRIN PANEL (06/19/2025 5:17 PM CDT) Iron 124 50 - 175 ug/dL 06/19/2025 5:57 PM CDT [facility] Transferrin 197 174 - 382 mg/dL 06/19/2025 5:57 PM CDT [facility] Transferrin Saturation % 50 16 - 50 % 06/19/2025 5:57 PM CDT [facility] TIBC Calculated 246 240 - 450 ug/dL 06/19/2025 5:57 PM CDT [facility] Blood BLOOD SPECIMEN / Unknown Lab Venipuncture / Unknown 06/19/2025 5:17 PM CDT 06/19/2025 5:22 PM CDT us Nadia Whitlock MD LAB - CHEMISTRY ORDERABLES Fi nal Result Performing Organization Address City/[facility]/ZIP Co de Phone Number [address] [address], [place] [phone] * FERRITIN (06/19/2025 5:17 PM CDT) Only the most recent of2 resultswithin the time period is included. [facility] Ferritin 239 22 - 275 ng/mL 06/19/2025 6:12 PM CDT [facility] Blood BLOOD SPECIMEN / Unknown Lab Venipuncture / Unknown 06/19/2025 5:17 PM CDT 06/19/2025 5:22 PM CDT Nadia Whitlock MD LAB - CHEMISTRY ORDERABLES Fi nal Result [facility] [address] [place] [address], [facility] [phone] * PREPARE (CROSSMATCH) RBC UNIT(S), 1 Units (06/19/2025 8:57 AM CDT) Only the most recent of3 resultswithin the time period is included. [facility] Unit Description AS1 LR PRBC [facility] BLOOD BANK LAB Unit ABO A [facility] BLOOD [facility] Unit Rh POS [facility]OD [facility] Product Number R02 [facility] B LOOD [facility]ANK LAB Unit Donor # [id number] [facility] B[facility]OD [facility] Unit Status transfused [facility] Product Code [id number] [facility] BLO OD BANK LAB Blood Type Barcode 6200 [facility] BLOOD [facility] LAB Expiration Date [id number] S BLOOD BANK LAB Blood Bank BLOOD SPECIMEN / Unknown 06/19/2025 8:57 AM CDT 06/19/2025 9:12 AM CDT Nadia Whitlock MD LAB - BLOOD BANK ORDERABLES F inal Result [facility] BLOOD [facility] LAB [address] [place] [address], [place] [phone] * TYPE + SCREEN PANEL (06/19/2025 8:57 AM CDT) Only the most recent of3 resultswithin the time period is included. [facility] Antibody Screen NEG 08/08/202 5 10:[address] [facility] BLOOD BANK LAB ABO Rh A POS 06/19/2025 10:[address] [facility] BLOOD [facility] LAB Blood Bank BLOOD SPECIMEN / Unknown Lab Venipuncture / Unknown 06/19/2025 8:57 AM CDT 06/19/2025 9:12 AM CDT us Nadia Whitlock MD LAB - BLOOD BANK ORDERABLES F inal Result [facility] BLOOD BANK LAB [address] [place] [address], [facility] [phone] * (ABNORMAL) URINALYSIS NO MICROSCOPIC NO CULTURE (06/17/2025 2:08 PM CDT) Color UA Yellow Yellow, Straw 06/17/2025 5:17 PM [facility] Clarity UA Clear Clear 06/17/2025 5:17 PM [facility] Glucose UA Negative Negative 06/17/2025 5:17 PM [facility] Bilirubin UA Negative Negative 06/17/2025 5:17 PM [facility] Ketone UA Negative Negative 06/17/2025 5:17 PM [facility] Specific [place] UA 1.015 1.005 - 1.030 06/17/2025 5:17 PM [facility] Blood UA Negative Negative 06/17/2025 5:17 PM [facility] pH UA 7.0 5.0 - 8.0 06/17/2025 5:17 PM [facility] Protein UA 1+(A) Negative 06/17/2025 5:17 PM [facility] Urobilinogen UA >8.0(A) Negative mg/dL 06/17/2025 5:17 PM [facility] Nitrite UA Negative Negative 06/17/2025 5:17 PM [facility] Leukocyte Esterase UA Negative Negative 06/17/2025 5:17 PM [facility] Urine URINE SPECIMEN OBTAINED BY CLEAN CATCH PROCEDURE / Unknown Collection / Unknown 06/17/2025 2:08 PM CDT 06/17/2025 4:44 PM CDT Nimesh Botello MD LAB - URINALYSIS ORDERABLES Fi nal Result Performing Organization Address City/[facility] Co de Phone Number [address] [address], [facility] [phone] * UREA NITROGEN URINE RANDOM (06/17/2025 2:08 PM CDT) Only the most recent of2 resultswithin the time period is included. Urea Nitrogen Random Urine 815 Not Established mg/dL 06/17/2025 5:17 PM CDT [facility] Urine URINE SPECIMEN OBTAINED BY CLEAN CATCH PROCEDURE / Unknown Collection / Unknown 06/17/2025 2:08 PM CDT 06/17/2025 4:44 PM CDT Nimesh Botello MD LAB - URINE CHEMISTRY ORDERABL ES Final Result Performing Organization Address [facility] Co de Phone Number [address] [address], [facility] [phone] * CREATININE URINE RANDOM (06/17/2025 2:08 PM CDT) Only the most recent of2 resultswithin the time period is included. Creatinine Urine 53.26 Not Established mg/dL 06/17/2025 5:17 PM CDT [facility] Urine URINE SPECIMEN OBTAINED BY CLEAN CATCH PROCEDURE / Unknown Collection / Unknown 06/17/2025 2:08 PM CDT 06/17/2025 4:44 PM CDT Nimesh Botello MD LAB - URINE CHEMISTRY ORDERABL ES Final Result Performing Organization Address City/[facility]/ZIP Co de Phone Number [address] [address], [facility] [phone] * EKG 12-Lead (06/15/2025 11:11 PM CDT) Only the most recent of2 resultswithin the time period is included. Ventricular Rate 82 BPM [facility] Atrial Rate 82 BPM [facility] P-R Interval 168 ms [facility] QRS Duration ms 98 ms [facility] Q-T Interval ms 376 ms [facility] QTC Calculation (Bezet) 439 ms [facility] Calculated P [place] 15 degrees [facility] Calculated R [place] -2 degrees [facility] Calculated T [place] 19 degrees [facility] Interpretation EKG NORMAL SINUS RHYTHM LOW VOLTAGE QRS ABNORMAL ECG NO PREVIOUS ECGS AVAILABLE Confirmed by MODESTA HOLGUIN MD ([id number]) on 06/28/2025 7:28:35 AM [facility] 06/15/2025 11:1 1 PM CDT 06/28/2025 7:28 AM CDT us Naga Mak MD ECG ORDERABLES Edited Res ult - Final [facility] MUSE * XR Chest 1Vw Portable (06/15/2025 11:02 PM CDT) Only the most recent of2 resultswithin the time period is included. Anatomical Region Laterality Modality Chest Digital Radiogra phy 06/16/2025 11:4 2 AM CDT Narrative 06/16/2025 11:47 AM CDT PROCEDURE: XR CHEST 1VW PORTABLE DATE/TIME OF EXAM: 06/15/2025 11:02 PM CLINICAL INFORMATION: None relevant/not provided if blank. Indication: E87.1: Hyponatremia Additional History: New chest pain COMPARISON: Portable chest 06/09/2025. FINDINGS/IMPRESSION: The chin is superimposed on the upper chest, obscuring this region. Right chest wall cardiac device has subclavian approach leads extending to the right atrium and right ventricle. An electronic device is superimposed on the left lower chest/upper abdomen. Lung volumes are low. There is mild basilar atelectasis. There is no pleural effusion or pneumothorax. The heart and mediastinum are obscured. No acute bony abnormality. > Interpreting Provider: Hoa Becerra MD on 06/16/2025 11:47 AM Procedure Note Hoa Becerra MD - 06/16/2025 PROCEDURE: XR CHEST 1VW PORTABLE DATE/TIME OF EXAM: 06/15/2025 11:02 PM CLINICAL INFORMATION: None relevant/not provided if blank. Indication: E87.1: Hyponatremia Additional History: New chest pain COMPARISON: Portable chest 06/09/2025. FINDINGS/IMPRESSION: The chin is superimposed on the upper chest, obscuring this region. Right chest wall cardiac device has subclavian approach leads extendingto the right atrium and right ventricle. An electronic device issuperimposed on the left lower chest/upper abdomen. Lung volumes are low. There is mild basilar atelectasis. There is no pleural effusion or pneumothorax. The heart and mediastinum areobscured. No acute bony abnormality. > Interpreting Provider: Hoa Becerra MD on 06/16/2025 11:47 AM Naga Mak MD DIAGNOSTIC IMAGING ORDERAB LES Final Result * TRANSFUSE RED BLOOD CELL LEUKOREDUCED UNIT(S) (06/15/2025 4:06 PM CDT) Naga Mak MD NURSING - BLOOD PROD TRANS FUSION Final Result * SODIUM URINE RANDOM (06/14/2025 5:31 PM CDT) Only the most recent of2 resultswithin the time period is included. Sodium Urine <20 Not Established mmol/L 06/14/2025 6:23 PM CDT [facility] Urine URINE SPECIMEN OBTAINED BY CLEAN CATCH PROCEDURE / Unknown Collection / Unknown 06/14/2025 5:31 PM CDT 06/14/2025 5:36 PM CDT Naga Mak MD LAB - URINE CHEMISTRY ORDE RABLES Final Result [address] [address], [facility] [phone] * OSMOLALITY BLOOD (06/14/2025 8:52 AM CDT) Osmolality 283 275 - 295 mOsm/kg 06/14/2025 10:14 AM CDT [facility] Blood BLOOD SPECIMEN / Unknown Lab Venipuncture / Unknown 06/14/2025 8:52 AM CDT 06/14/2025 9:38 AM CDT us Naga Mak MD LAB - CHEMISTRY ORDERABLES Final Result [facility] [address] [place] [address], [facility] [phone] * (ABNORMAL) RENAL FUNCTION PANEL (06/11/2025 8:19 PM CDT) Only the most recent of2 resultswithin the time period is included. BUN 48(H) 7 - 26 mg/dL 06/11/2025 9:36 PM [facility] Creatinine 1.33(H) 0.71 - 1.16 mg/dL 06/11/2025 9:36 PM [facility] Sodium 133(L) 136 - 145 mmol/L 06/11/2025 9:36 PM [facility] Potassium 2.9(L) 3.5 - 4.5 mmol/L 06/11/2025 9:36 PM [facility] Chloride 89(L) 98 - 107 mmol/L 06/11/2025 9:36 PM [facility] CO2 36(H) 22 - 29 mmol/L 06/11/2025 9:36 PM [facility] Glucose 224(H) 70 - 99 mg/dL 06/11/2025 9:36 PM [facility] Albumin 2.4(L) 3.4 - 5.0 g/dL 06/11/2025 9:36 PM [facility] Calcium 7.8(L) 8.4 - 10.2 mg/dL 06/11/2025 9:36 PM [facility] Phosphorus 3.3 2.8 - 5.1 mg/dL 06/11/2025 9:36 PM [facility] Anion Gap 8 6 - 16 06/11/2025 9:36 PM [facility] BUN/Creatinine Ratio 36(H) 7 - 23 06/11/2025 9:36 PM [facility] Osmolality Calculated 296(H) 275 - 295 mOsm/kg 06/11/2025 9:36 PM CDT [facility] eGFR by CKD-EPI 54(L) >=90 mL/min/1.7 3 m2 06/11/2025 9:36 PM CDT [facility] Comment:Estimated Glomerular Filtration Rate (eGFR) calculated using the CKD-EPI Creatinine Equation (2020), per the National Kidney Foundation and [place] [employer]ph[employer] recommendations. Blood BLOOD SPECIMEN / Unknown Lab Venipuncture / Unknown 06/11/2025 8:19 PM CDT 06/11/2025 8:45 PM CDT us Naga Mak MD LAB - CHEMISTRY ORDERABLES Final Result [facility] [address] [place] [address], [facility] [phone] * MARCELLO BLOOD SCREEN W/REFLEX TITER (06/11/2025 10:47 AM CDT) MARCELLO IgG None Detected None Detected 06/13/2025 12:27 AM CDT [facility] ([facility]) Comment: No Anti-Nuclear Antibodies (MARCELLO) detected by DENICE. No further testing will be performed. If suspicion of connective tissue disease is strong and MARCELLO DENICE is negative, consider testing for MARCELLO by IFA ([id number]). INTERPRETIVE INFORMATION: Anti-Nuclear Antibodies (MARCELLO), IgG by DENICE Antinuclear Antibodies (MARCELLO), IgG by DENICE: MARCELLO specimens are screened using enzyme-linked immunosorbent assay (DENICE) methodology. All DENICE results reported as Detected are further tested by indirect fluorescent assay (IFA) using HEp-2 substrate with an IgG-specific conjugate. The MARCELLO DENICE screen is designed to detect antibodies against dsDNA, histones, SS-A (Ro), SS-B (La), Vazquez, Vazquez/BREAD DISTRIBUTOR, Scl-70, Trudi-1, centromeric proteins, other antigens extracted from the HEp-2 cell nucleus. MARCELLO DENICE assays have been reported to have lower sensitivities than MARCELLO IFA for systemic autoimmune rheumatic diseases (SARD). Negative results do not necessarily rule out SARD. Performed By: [facility] [address] [place] [id number] Supervisor Correspondence Section: Steven Casanova MD, PhD CLIA Number: [id number] Blood BLOOD SPECIMEN / Unknown Lab Venipuncture / Unknown 06/11/2025 10:47 AM CDT 06/11/2025 11:19 AM CDT Orville Esteban DO LAB - CHEMISTRY ORDERABLES Final Result [facility] ([facility]) [address] [place] [id number], [facility] * VAS Bilateral Venous Duplex Le (06/11/2025 10:35 AM CDT) Anatomical Region Laterality Modality Lower Extremity Ultrasound 06/11/2025 9:26 AM CDT Narrative Procedure Note Umberto Beckford MD - 06/12/2025 Fabian Pimentel DO VASCULAR LAB ORDERABLES Edited R esult - Final * CT Head Wo Contrast (06/11/2025 9:21 AM CDT) Anatomical Region Laterality Modality Head Computed Tomogra phy 06/11/2025 11:3 8 AM CDT Impressions 06/11/2025 6:02 PM CDT IMPRESSION: 1.No acute intracranial hemorrhage. 2.Please note that CT is insensitive to nonhemorrhagic strokes and MRI of the brain should be considered, if there is clinical concern for acute cerebral infarction or cerebral hypoxemia. Report dictated by Micheline Barrera MD (executive vice president). > Dictated by Editing Clerk I, Destinee Lambert MD have personally reviewed and interpreted this examination/study. > Interpreting Provider: Destinee Lambert MD on 06/11/2025 6:02 PM Narrative 06/11/2025 6:02 PM CDT PROCEDURE: CT HEAD WO CONTRAST, DATE/TIME OF EXAM: 06/11/2025 9:21 AM, LOCATION [facility] INDICATION: R41.82: Altered mental status, unspecified altered mental status type EXAMINATION: Computed tomography (CT) of the head without contrast ADDITIONAL CLINICAL INFORMATION: Ordering Provider Reason For Exam: Rule out stroke Technologist Note: None. Additional: None. TECHNIQUE: CT of the head was performed without contrast according to standard protocol. CT dose reduction technique was used, including Automated Exposure Control. COMPARISON: Comparison is made with a study from 06/09/2025 FINDINGS: No acute intra- or extra-axial fluid collections are identified. The ventricles moderate are of normal size, shape, and morphology. The basilar cisterns are patent. No mass effect or midline shift is seen. Limited evaluation of the posterior fossa due to the presence of beam hardening and streak artifacts. Mild patchy hypoattenuation along the left frontal and left temporal regions which is a nonspecific finding and could be artifactual, in the appropriate clinical setting. The wright-white matter differentiation is obscured by motion artifact. Periventricular white matter hypoattenuation is indicative of chronic small vessel ischemic disease. There is vascular calcification of the carotid siphons. No acute calvarial fracture is identified. Other than bilateral cataract extractions, the orbits appear normal. There is mild paranasal sinus disease. There is mild opacification in the left mastoid air cells. No soft tissue abnormality is identified. Procedure Note Destinee Lambert MD - 06/11/2025 PROCEDURE: CT HEAD WO CONTRAST, DATE/TIME OF EXAM: 06/11/2025 9:21 AM, LOCATION [facility] INDICATION: R41.82: Altered mental status, unspecified altered mental status type EXAMINATION: Computed tomography (CT) of the head without contrast ADDITIONAL CLINICAL INFORMATION: Ordering Provider Reason For Exam: Rule out stroke Technologist Note: None. Additional: None. TECHNIQUE: CT of the head was performed without contrast according to standard protocol. CT dose reduction technique was used, including Automated Exposure Control. COMPARISON: Comparison is made with a study from 06/09/2025 FINDINGS: No acute intra- or extra-axial fluid collections are identified. The ventricles moderate are of normal size, shape, and morphology. Thebasilar cisterns are patent. No mass effect or midline shift is seen. Limited evaluation of the posterior fossa due to the presence of beam hardeningand streak artifacts. Mild patchy hypoattenuation along the left frontal and left temporal regions which is a nonspecific finding and could be artifactual, in the appropriate clinical setting. The wright-white matter differentiation is obscured by motion artifact. Periventricular white matter hypoattenuation is indicative of chronic small vessel ischemic disease. There is vascular calcification of the carotid siphons. Noacute calvarial fracture is identified. Other than bilateral cataract extractions, the orbits appear normal. There is mild paranasal sinus disease. There is mild opacification in the left mastoid air cells. Nosoft tissue abnormality is identified. IMPRESSION: 1.No acute intracranial hemorrhage. 2.Please note that CT is insensitive to nonhemorrhagic strokes and MRIof the brain should be considered, if there is clinical concern for acute cerebral infarction or cerebral hypoxemia. Report dictated by Micheline Barrera MD (executive vice president). > Dictated by Editing Clerk I, Destinee Lambert MD have personally reviewed and interpretedthis examination/study. > Interpreting Provider: Destinee Lambert MD on 06/11/2025 6:02 PM Pricilla Khoury MD CT ORDERABLES Final Result * (ABNORMAL) DIFFERENTIAL MANUAL (06/11/2025 1:50 AM CDT) Only the most recent of2 resultswithin the time period is included. Neutrophil % 86(H) 41 - 74 % 06/11/2025 2:44 AM [facility] Lymphocyte % 5(L) 17 - 47 % 06/11/2025 2:44 AM [facility] Monocyte % 7 3 - 11 % 06/11/2025 2:44 AM [facility] Eosinophil % 2 0 - 7 % 06/11/2025 2:44 AM [facility] Neutrophil Absolute 13.07(H) 1.60 - 7.50 x10E9/L 06/11/2025 2:44 AM [facility] Lymphocyte Absolute 0.76(L) 1.00 - 4.40 x10E9/L 06/11/2025 2:44 AM [facility] Monocyte Absolute 1.06(H) 0.15 - 1.00 x10E9/L 06/11/2025 2:44 AM [facility] Eosinophil Absolute 0.30 0.00 - 0.60 x10E9/L 06/11/2025 2:44 AM CDT [facility] RBC Morphology REVIEWED 06/11/2025 2:44 AM CDT [facility] Macrocytosis MODERATE(A) (none) 06/11/2025 2:44 AM CDT [facility] Target Cells MODERATE(A) (none) 06/11/2025 2:44 AM CDT [facility] Blood BLOOD SPECIMEN / Unknown Lab Venipuncture / Unknown 06/11/2025 1:50 AM CDT 06/11/2025 2:13 AM CDT Ricky Vanegas MD LAB - HEMATOLOGY ORDERABLES Final Result Performing Organization Address City/[facility]/ZIP Co de Phone Number [address] [address], [facility] [phone] * SOLUBLE LIVER ANTIGEN (SLA) ANTIBODY (06/10/2025 6:11 PM CDT) Soluable Liver Antigen Antibody IgG 1.9 0.0 - 24.9 U 06/12/2025 10:40 PM CDT [facility] ([facility]) Comment: REFERENCE INTERVAL: Soluble Liver Antigen Antibody, IgG 0.0 - 20.0 U ........... Negative 20.1 - 24.9 U ........... Equivocal 25.0 U or greater ....... Positive The presence of SLA antibodies has almost 100% specificity for autoimmune hepatitis, although only 12-30% have these antibodies. Thus, a negative SLA IgG test does not rule out autoimmune hepatitis. Performed By: [facility] [address] [place] [address] Supervisor Correspondence Section: Steven Casanova MD, PhD CLIA Number: [id number] Blood BLOOD SPECIMEN / Unknown Lab Venipuncture / Unknown 06/10/2025 6:11 PM CDT 06/11/2025 9:29 AM CDT Orville Esteban DO LAB - SEROLOGY ORDERABLES Final Result Performing Organization Address City/[facility]/ZIP Co de Phone Number [facility]) [address] [place] [address] * (ABNORMAL) PROTEIN ELECTROPHORESIS WO INTERP BLOOD (06/10/2025 6:11 PM CDT) Pathologist [facility] Protein Total 5.7(L) 6.0 - 8.5 g/dL 06/12/2025 3:10 PM CDT [facility]) Albumin 2.7(L) 2.9 - 4.4 g/dL 06/12/2025 3:10 PM CDT [facility] ([facility]) Alpha-1 Globulin 0.2 0.0 - 0.4 g/dL 06/12/2025 3:10 PM CDT [facility]) Jgjai-5-Gziwqxnb 0.5 0.4 - 1.0 g/dL 06/12/2025 3:10 PM CDT [facility] ([facility]) Beta-Globulin 0.8 0.7 - 1.3 g/dL 06/12/2025 3:10 PM CDT [facility]) Gamma Globulin 1.6 0.4 - 1.8 g/dL 06/12/2025 3:10 PM CDT [facility]) M-Kiet Comment: Not Observed g/dL 06/12/2025 3:10 PM CDT [facility]) Comment: SPE shows asymmetrical gamma. Suggest serum COLBY and free light chain analysis for further evaluation. Globulin Total 3.0 2.2 - 3.9 g/dL 06/12/2025 3:10 PM CDT [facility]) Albumin/Globulin Ratio 0.9 0.7 - 1.7 06/12/2025 3:10 PM CDT [facility]) Please Note Comment 06/12/2025 3:10 PM CDT [facility]) Comment: Protein electrophoresis scan will follow via computer, mail, or market development manager delivery. Blood BLOOD SPECIMEN / Unknown Lab Venipuncture / Unknown 06/10/2025 6:11 PM CDT 06/10/2025 6:20 PM CDT Narrative [facility] ([facility]) - 06/12/2025 3:10 PM CDT Performed at: [address] [place] [address] [id number] Manager Wastewater: Horacio Bennett PhD, Phone: [phone] us Orville Esteban DO LAB - CHEMISTRY ORDERABLES Final Result [facility]) [address] [place] [address] * SMOOTH MUSCLE ANTIBODY W REFLEX TITER (06/10/2025 6:11 PM CDT) F-Actin Antibody IgG 11 0 - 19 Units 06/13/2025 12:18 AM CDT [facility] ([facility]) Comment: If F-Actin (Smooth Muscle) Antibody, IgG is negative, the Smooth Muscle Antibody titer by IFA is not performed. REFERENCE INTERVAL: F-Actin (Smooth Muscle) Antibody, IgG by DENICE 19 Units or less ....... Negative 20 - 30 Units .......... Weak Positive-Suggest repeat testing in two to three weeks with fresh specimen. 31 Units or greater..... Positive-Suggestive of autoimmune hepatitis type 1 or chronic active hepatitis. F-actin IgG antibodies have been shown to have increased sensitivity for autoimmune hepatitis (AIH) but lower specificity than smooth muscle antibodies (SMA). F-actin IgG antibodies can also be seen in SMA-negative disease controls (non-AIH), especially in patients with primary biliary cirrhosis and chronic hepatitis C infections. Some patients with AIH may be SMA-positive but negative for F-actin IgG. Consider testing for SMA by IFA if suspicion for AIH is strong. Performed By: [facility] [address] [place] [address] Supervisor Correspondence Section: Steven Casanova MD, PhD CLIA Number: [id number] Blood BLOOD SPECIMEN / Unknown Lab Venipuncture / Unknown 06/10/2025 6:11 PM CDT 06/10/2025 6:20 PM CDT Orville Esteban DO LAB - SEROLOGY ORDERABLES Final Result [facility]) [address] * MITOCHONDRIAL ANTIBODY SCREEN (06/10/2025 6:11 PM CDT) Mitochondrial M2 Antibody 1.9 0.0 - 24.9 Units 06/13/2025 12:18 AM CDT [facility] ([facility]) Comment: REFERENCE INTERVAL: Mitochondrial (M2) Antibody, IgG 20.0 Units or less ......... Negative 20.1 - 24.9 Units........... Equivocal 25.0 Units or greater....... Positive Anti-mitochondrial antibodies (AMA) are thought to be present in 90-95% of patients with primary biliary cholangitis (PBC). However, the frequency of detected antibodies may be cohort or assay dependent, as lower sensitivities have been reported. Not all PBC patients are positive for AMA; some patients may be positive for SP100 and/or GP210 antibodies. A negative result does not rule out PBC. Performed By: [facility] [address] [place] [address] Supervisor Correspondence Section: Steven Casanova MD, PhD CLIA Number: [id number] Blood BLOOD SPECIMEN / Unknown Lab Venipuncture / Unknown 06/10/2025 6:11 PM CDT 06/10/2025 6:20 PM CDT Orville Esteban DO LAB - CHEMISTRY ORDERABLES Final Result [facility]) [address] [place] [address] * TRANSFERRIN (06/10/2025 6:11 PM CDT) Transferrin 193 174 - 382 mg/dL 06/10/2025 9:48 PM CDT [facility] Blood BLOOD SPECIMEN / Unknown Lab Venipuncture / Unknown 06/10/2025 6:11 PM CDT 06/10/2025 6:20 PM CDT Orville Esteban DO LAB - CHEMISTRY ORDERABLES Final Result [address] [address], [facility] [phone] * CERULOPLASMIN (06/10/2025 6:11 PM CDT) Ceruloplasmin 28 20 - 60 mg/dL 06/10/2025 6:56 PM CDT [facility] Blood BLOOD SPECIMEN / Unknown Lab Venipuncture / Unknown 06/10/2025 6:11 PM CDT 06/10/2025 6:20 PM CDT us Orville Esteban DO LAB - CHEMISTRY ORDERABLES Final Result Performing Organization Address City/[facility]/ZIP Co de Phone Number [address] [address], [place] [phone] * ERYTHROCYTE SEDIMENTATION RATE (06/10/2025 6:11 PM CDT) Erythrocyte Sedimentation Rate Westergren 5 0 - 20 MM/HR 06/10/2025 6:33 PM CDT [facility] Blood BLOOD SPECIMEN / Unknown Lab Venipuncture / Unknown 06/10/2025 6:11 PM CDT 06/10/2025 6:20 PM CDT us Orville Esteban DO LAB - HEMATOLOGY ORDERABLES Sally l Result Performing Organization Address [facility] Co de Phone Number [address] [address], [place] [phone] * (ABNORMAL) LIPASE BLOOD (06/10/2025 6:11 PM CDT) Lipase 139(H) 8 - 78 U/L 06/10/2025 6:52 PM CDT [facility] Blood BLOOD SPECIMEN / Unknown Lab Venipuncture / Unknown 06/10/2025 6:11 PM CDT 06/10/2025 6:20 PM CDT Narrative [facility] - 06/10/2025 6:52 PM CDT Lipase results from the Prasad Alinity analyzer may not be comparable with other methodologies. us Orville Esteban DO LAB - CHEMISTRY ORDERABLES Final Result Performing Organization Address City/[facility]/ZIP Co de Phone Number [address] [address], [place] [phone] * IRON BLOOD (06/10/2025 6:11 PM CDT) Pathologist [facility] Iron 63 50 - 175 ug/dL 06/10/2025 9:48 PM CDT [facility] Blood BLOOD SPECIMEN / Unknown Lab Venipuncture / Unknown 06/10/2025 6:11 PM CDT 06/10/2025 6:20 PM CDT Orville Esteban DO LAB - CHEMISTRY ORDERABLES Final Result [address] [address], [place] [phone] * AMYLASE BLOOD (06/10/2025 6:11 PM CDT) [facility] Amylase 68 25 - 125 U/L 06/10/2025 6:52 PM CDT [facility] Blood BLOOD SPECIMEN / Unknown Lab Venipuncture / Unknown 06/10/2025 6:11 PM CDT 06/10/2025 6:20 PM CDT Orville Esetban DO LAB - CHEMISTRY ORDERABLES Final Result Performing Organization Address City/[facility]/ZIP Co de Phone Number [address] [address], [place] [phone] * ECHO COMPLETE W CONTRAST (06/10/2025 1:07 PM CDT) [facility] AV area index 1.868 cm /m SSM CV FUJI PACS Dimensionless Index 1.066 unitless SSM CV FUJI PACS Myocardial strain charge 2 unitless SSM CV FUJI PACS AV area cont VTI 4.421 cm SSM CV FUJI PACS AV pk grad 9.884 mmHg SSM CV FU JI PACS AV pk lea 157.192 cm/s SSM CV FUJ I PACS LV ESV A4C 38.546 ml SSM CV FU JI PACS LVOT VTI 26.723 cm SSM CV FUJ I PACS AV area pk lea 3.385 cm SSM CV FUJI PACS PV VTI 20.536 cm SSM CV FUJ I PACS AV mn grad 4.08 mmHg SSM CV FU JI PACS RVOT VTI 24.263 cm SSM CV FUJ I PACS TAPSE 1.546 cm SSM CV FUJ I PACS LVPWd 1.126 cm SSM CV FUJ I PACS LV A2C EF 68.363 % SSM CV FUJ I PACS LVIDd 5.744 cm SSM CV FUJ I PACS PV pk lea 132.884 cm/s SSM CV FUJ I PACS LVOT pk lea 128.263 cm/s SSM CV F UJI PACS LVIDs 3.273 cm SSM CV FUJ I PACS AV VTI 25.075 cm SSM CV FUJ I PACS MV A pk lea 82.334 cm/s SSM CV F UJI PACS MV E pk lea 54.766 cm/s SSM CV F UJI PACS LV EDV A4C 125.978 ml SSM CV FU JI PACS LV A4C EF 69.403 % SSM CV FUJ I PACS LVOT pk grad 6.581 mmHg SSM CV FUJI PACS IVSd 2D 1.014 cm SSM CV [facility] I PACS LVOT diam 2.298 cm SSM CV FUJ I PACS LV biplane EF 69.463 % SSM CV FUJI PACS LV ESV A2C 27.144 ml SSM CV FU JI PACS LA size 4.097 cm SSM CV FUJ I PACS RVOT pk lea 150.775 cm/s SSM CV F UJI PACS MV VTI 25.846 cm SSM CV FUJ I PACS LV EDV A2C 85.797 ml SSM CV FU JI PACS MV E' lateral lea 11.441 cm/s SS M CV FUJI PACS MV mn grad 1.395 mmHg SSM CV FU JI PACS Anatomical Region Laterality Modality Ultrasound 06/10/2025 12:2 5 PM CDT Narrative 06/10/2025 5:48 PM CDT Summary * Technically very difficult study. * The left ventricle is normal in size, with normal systolic function and an estimated ejection fraction of 69 % by biplane method of disks. Left ventricular wall motion is normal. * The left ventricular diastolic function is normal. * Right ventricle is not well visualized. Patient Info Name: Clyde Rico Age: 79 years : 1945 Gender: Male Ht: 72 in Wt: 237 lb BSA: 2.37 m2 HR: 65 bpm Heart Rhythm: Sinus Rhythm Exam Date: 06/10/2025 12:25 PM Patient Status: I/P BP unable to obtain due to: Other Study Site: [facility] Primary Location: [facility] EStud Info Technical Quality: Poor Exam Type: ECHO COMPLETE W CONTRAST Indications I26.99 - Pulmonary embolism, other, unspecified chronicity, unspecified whether acute cor pulmonale present (HCC) Procedure(s) * A complete 2D, color Doppler, and spectral Doppler transthoracic echocardiogram was performed. Contrast/Agitated Saline Contrast / Saline: Definity Amount: 1.00 ml Reaction to Contrast: no Reason for Technically Difficult Study: poor acoustic windows Staff Referring Physician: Fabian Pimentel Ordering Provider: Fabian Pimentel Attending Physician: Fabian Pimentel Lamp Replacer: Greg Beasley Left Ventricle Left ventricular systolic function is normal with an estimated ejection fraction of 69 % by biplane method of disks. The left ventricle is normal in size. The left ventricular mass is normal. Left ventricular segmental wall motion is normal. The left ventricular diastolic function is normal. Right Ventricle The right ventricle is not well visualized. Left Atrium The left atrium is normal in size. Right Atrium The right atrium is not well visualized. Atrial Septum Interatrial septum not well visualized by 2D imaging. Aortic Valve The aortic valve is not well visualized. There is no aortic valve regurgitation. There is no aortic valve stenosis with a peak velocity of 1.6 m/s, mean gradient of 4 mmHg, and aortic valve area of 4.42 cm2. Pulmonic Valve The pulmonic valve is not well visualized. There is no pulmonic valve stenosis. There is no clinically significant pulmonic regurgitation. Mitral Valve The mitral valve is normal. There is no mitral valve stenosis. There is no clinically significant mitral valve regurgitation. Tricuspid Valve The tricuspid valve is not well visualized. Inferior Vena Cava The inferior vena cava is normal in size (< 2.1 cm). There is > 50% collapse of the IVC upon inspiration with an estimated right atrial pressure of 3 mmHg. Pericardium/Pleural There is no pericardial effusion. Aorta The aortic root at the sinus of Valsalva is not well visualized. The ascending aorta is not well visualized. Measurements Left Ventricular Outflow Tract Name Value Normal LVOT 2D LVOT Diameter 2.3 cm LVOT Area 4.1 cm2 LVOT Doppler LVOT Peak Velocity 1.3 m/s LVOT Peak Gradient 7 mmHg LVOT Mean Velocity 79.34 cm/s LVOT Mean Gradient 3 mmHg LVOT VTI 26.7 cm LVOT VTI/AV VTI Ratio 1.1 LVOT Stroke Volume 111 ml LVOT Stroke Volume Index 47 ml/m2 35-58 LVOT CO 7.2 l/min LVOT CI 3.0 l/min/m2 Pulmonic Valve Name Value Normal RVOT Doppler RVOT Peak Velocity 1.5 m/s RVOT Peak Gradient 9 mmHg RVOT Mean Gradient 4 mmHg PV Doppler PV Peak Velocity 1.3 m/s PV Peak Gradient 7 mmHg PV Mean Gradient 4 mmHg Mitral Valve Name Value Normal MV Doppler MV Peak Gradient 4 mmHg MV Mean Gradient 1 mmHg MV DI (VTI) 0.97 MV PHT 72 ms MV Area (PHT) 3.05 cm2 4.00-5.00 MV Area (Cont Eq VTI) 4.29 cm2 MV Diastolic Function MV E Peak Velocity 0.5 m/sec MV A Peak Velocity 0.8 m/sec MV E/A 0.7 MV Decel Time (PW) 249 ms MV Annular TDI MV Septal e' Velocity 7 cm/s >=8 MV E/e' (Septal) 8 <=8 MV Lateral e' Velocity 11 cm/s >=10 MV E/e' (Lateral) 5 <=8 MV e' Average 9 cm/s MV E/e' (Average) 6 Tricuspid Valve Name Value Normal Estimated PAP/RSVP RA Pressure 3 mmHg <=5 TV Annular TDI TV Lateral Geeta s' Velocity 16 cm/s 10-19 Aortic Valve Name Value Normal AV 2D/MM AV Cusp Sep (MM) 1.7 cm AV Doppler AV Peak Velocity 1.57 m/s AV Peak Gradient 10 mmHg AV Mean Gradient 4 mmHg AV VTI 25 cm AV Area (Cont Eq VTI) 4.42 cm2 >=2.00 AV Area (Cont Eq Lea) 3.38 cm2 AV DI (VTI) 1.07 AV DI (Lea) 0.82 AV Regurgitation 2D LVOT Area 4.15 cm2 Ventricles Name Value Normal LV Dimensions 2D/MM IVS Diastolic Thickness (2D) 1.0 cm 0.6-1.0 LVID Diastole (2D) 5.7 cm 4.2-5.8 LVPW Diastolic Thickness (2D) 1.1 cm 0.6-1.0 LVID Systole (2D) 3.3 cm 2.5-4.0 LV Mass (2D Cubed) 251 g 88-224 LV Mass Index (2D Cubed) 106 g/m2 49-115 Relative Wall Thickness (2D) 0.39 <=0.42 LV Fractional Shortening/Ejection Fraction 2D/MM LV Fractional Shortening (2D) 43 % 25-43 LV EF (2D Teicholz) 73 % 52-72 LV Diastolic Volume (4C MOD) 126 ml LV EF (4C MOD) 69 % LV Diastolic Volume (2C MOD) 86 ml LV EF (2C MOD) 68 % LV Diastolic Volume (BP MOD) 105 ml 62-150 LV Diastolic Volume Index (BP MOD) 44 ml/m2 34-74 LV Systolic Volume (BP MOD) 32 ml 21-61 LV Systolic Volume Index (BP MOD) 14 ml/m2 11-31 LV EF (BP MOD) 69 % 52-72 LV Diastolic Length (4C) 8.7 cm LV Systolic Length (4C) 7.4 cm LV Stroke Volume (4C MOD) 87 ml RV Dimensions 2D/MM TAPSE 1.5 cm >=1.7 Atria Name Value Normal LA Dimensions LA Dimension (2D) 4.1 cm 3.0-4.1 LA Dimen Index (2D) 1.7 cm/m2 Report Signatures Finalized by Elise Whalen on 06/10/2025 05:48 PM Procedure Note Elise Whalen MD - 06/10/2025 Summary * Technically very difficult study. * The left ventricle is normal in size, with normal systolic functionand an estimated ejection fraction of 69 % by biplane method of disks. Left ventricular wall motion is normal. * The left ventricular diastolic function is normal. * Right ventricle is not well visualized. Patient Info Name: Clyde Rico Age: 79 years : 1945 Gender: Male Ht: 72 in Wt: 237 lb BSA: 2.37 m2 HR: 65 bpm Heart Rhythm: Sinus Rhythm Exam Date: 06/10/2025 12:25 PM Patient Status: I/P BP unable to obtain due to: Other Study Site: [facility] Primary Location: [facility] EStud Info Technical Quality: Poor Exam Type: ECHO COMPLETE W CONTRAST Indications I26.99 - Pulmonary embolism, other, unspecified chronicity,unspecified whether acute cor pulmonale present (HCC) Procedure(s) * A complete 2D, color Doppler, and spectral Doppler transthoracic echocardiogram was performed. Contrast/Agitated Saline Contrast / Saline: Definity Amount: 1.00 ml Reaction to Contrast: no Reason for Technically Difficult Study: poor acoustic windows Staff Referring Physician: Fabian Pimentel Ordering Provider: Fabian Pimentel Attending Physician: Fabian Pimentel Lamp Replacer: Greg Beasley Left Ventricle Left ventricular systolic function is normal with an estimatedejection fraction of 69 % by biplane method of disks. The left ventricle is normalin size. The left ventricular mass is normal. Left ventricular segmentalwall motion is normal. The left ventricular diastolic function is normal. Right Ventricle The right ventricle is not well visualized. Left Atrium The left atrium is normal in size. Right Atrium The right atrium is not well visualized. Atrial Septum Interatrial septum not well visualized by 2D imaging. Aortic Valve The aortic valve is not well visualized. There is no aortic valve regurgitation. There is no aortic valve stenosis with a peak velocity of1.6 m/s, mean gradient of 4 mmHg, and aortic valve area of 4.42 cm2. Pulmonic Valve The pulmonic valve is not well visualized. There is no pulmonic valve stenosis. There is no clinically significant pulmonic regurgitation. Mitral Valve The mitral valve is normal. There is no mitral valve stenosis. There isno clinically significant mitral valve regurgitation. Tricuspid Valve The tricuspid valve is not well visualized. Inferior Vena Cava The inferior vena cava is normal in size (< 2.1 cm). There is > 50%collapse of the IVC upon inspiration with an estimated right atrial pressure of 3mmHg. Pericardium/Pleural There is no pericardial effusion. Aorta The aortic root at the sinus of Valsalva is not well visualized. The ascending aorta is not well visualized. Measurements Left Ventricular Outflow Tract Name Value Normal LVOT 2D LVOT Diameter 2.3 cm LVOT Area 4.1 cm2 LVOT Doppler LVOT Peak Velocity 1.3 m/s LVOT Peak Gradient 7 mmHg LVOT Mean Velocity 79.34 cm/s LVOT Mean Gradient 3 mmHg LVOT VTI 26.7 cm LVOT VTI/AV VTI Ratio 1.1 LVOT Stroke Volume 111 ml LVOT Stroke Volume Index 47 ml/m2 35-58 LVOT CO 7.2 l/min LVOT CI 3.0 l/min/m2 Pulmonic Valve Name Value Normal RVOT Doppler RVOT Peak Velocity 1.5 m/s RVOT Peak Gradient 9 mmHg RVOT Mean Gradient 4 mmHg PV Doppler PV Peak Velocity 1.3 m/s PV Peak Gradient 7 mmHg PV Mean Gradient 4 mmHg Mitral Valve Name Value Normal MV Doppler MV Peak Gradient 4 mmHg MV Mean Gradient 1 mmHg MV DI (VTI) 0.97 MV PHT 72 ms MV Area (PHT) 3.05 cm2 4.00-5.00 MV Area (Cont Eq VTI) 4.29 cm2 MV Diastolic Function MV E Peak Velocity 0.5 m/sec MV A Peak Velocity 0.8 m/sec MV E/A 0.7 MV Decel Time (PW) 249 ms MV Annular TDI MV Septal e' Velocity 7 cm/s >=8 MV E/e' (Septal) 8 <=8 MV Lateral e' Velocity 11 cm/s >=10 MV E/e' (Lateral) 5 <=8 MV e' Average 9 cm/s MV E/e' (Average) 6 Tricuspid Valve Name Value Normal Estimated PAP/RSVP RA Pressure 3 mmHg <=5 TV Annular TDI TV Lateral Geeta s' Velocity 16 cm/s 10-19 Aortic Valve Name Value Normal AV 2D/MM AV Cusp Sep (MM) 1.7 cm AV Doppler AV Peak Velocity 1.57 m/s AV Peak Gradient 10 mmHg AV Mean Gradient 4 mmHg AV VTI 25 cm AV Area (Cont Eq VTI) 4.42 cm2 >=2.00 AV Area (Cont Eq Lea) 3.38 cm2 AV DI (VTI) 1.07 AV DI (Lea) 0.82 AV Regurgitation 2D LVOT Area 4.15 cm2 Ventricles Name Value Normal LV Dimensions 2D/MM IVS Diastolic Thickness (2D) 1.0 cm 0.6-1.0 LVID Diastole (2D) 5.7 cm 4.2-5.8 LVPW Diastolic Thickness (2D) 1.1 cm 0.6-1.0 LVID Systole (2D) 3.3 cm 2.5-4.0 LV Mass (2D Cubed) 251 g 88-224 LV Mass Index (2D Cubed) 106 g/m2 49-115 Relative Wall Thickness (2D) 0.39 <=0.42 LV Fractional Shortening/Ejection Fraction 2D/MM LV Fractional Shortening (2D) 43 % 25-43 LV EF (2D Teicholz) 73 % 52-72 LV Diastolic Volume (4C MOD) 126 ml LV EF (4C MOD) 69 % LV Diastolic Volume (2C MOD) 86 ml LV EF (2C MOD) 68 % LV Diastolic Volume (BP MOD) 105 ml 62-150 LV Diastolic Volume Index (BP MOD) 44 ml/m2 34-74 LV Systolic Volume (BP MOD) 32 ml 21-61 LV Systolic Volume Index (BP MOD) 14 ml/m2 11-31 LV EF (BP MOD) 69 % 52-72 LV Diastolic Length (4C) 8.7 cm LV Systolic Length (4C) 7.4 cm LV Stroke Volume (4C MOD) 87 ml RV Dimensions 2D/MM TAPSE 1.5 cm >=1.7 Atria Name Value Normal LA Dimensions LA Dimension (2D) 4.1 cm 3.0-4.1 LA Dimen Index (2D) 1.7 cm/m2 Report Signatures Finalized by Elise Whalen on 06/10/2025 05:48 PM us Fabian Pimentel DO ECHO CUPID Final Result * (ABNORMAL) CULTURE WOUND+GRAM STAIN (06/10/2025 1:01 PM CDT) Culture Moderate Staphylococcus aureus(A) JENNIFER 06/13/2025 9:06 AM CDT [facility] Comment:Staphylococcus aureu s methicillin-susceptible (MSSA) detected by penicillin binding protein immunoassay. Culture Moderate Enterococcus faecalis(A) JENNIFER 06/13/2025 9:06 AM CDT [facility] Culture Light normal skin todd JENNIFER 06/13/2025 9:06 AM CDT [facility] Gram Stain Light Gram-positive cocci 06/13/2025 9:06 AM CDT [facility] Gram Stain Light Polymorphonuclear cells 06/13/2025 9:06 AM T [facility] Microbiology TISSUE SPECIMEN FROM SKIN / Unknown Collection / Unknown 06/10/2025 1:01 PM CDT 06/10/2025 1:19 PM CDT Narrative Organism Antibiotic Method Susceptibility Staphylococcus aureus Cefazolin JENNIFER Susceptible Staphylococcus aureus Clindamycin JENNIFER 0.25 ug/mL: Resistant Staphylococcus aureus Doxycycline JENNIFER <=0.5 ug/mL: Susceptible Staphylococcus aureus Inducible Clindamy roman Resistance JENNIFER POS ug/mL: Pos Staphylococcus aureus Oxacillin JENNIFER 0.5 ug/mL: Susceptible Staphylococcus aureus Trimethoprim-sulfa methox azole JENNIFER <=10 ug/mL: Susceptible Comment: This isolate is presumed to be resistant to clindamycin on the basis of detection of inducible clindamycin resistance. Staphylococcus sensitivity to oxacillin predicts susceptibility for nafcillin, ampicillin/sulbactam, amoxicillin/clavulanate, piperacillin/tazobactam, all cephalosporins (except ceftazidime, ceftazidime/avibactam, ceftolozane/tazobactam), and all carbapenems. Enterococcus faecalis Ampicillin JENNIFER <=2 ug/mL: Susceptible Enterococcus faecalis Vancomycin JENNIFER 1 ug/mL: Susceptible Comment: Gentamicin Synergy resistant indicates gentamicin will NOT be synergistic with a cell-wall active agent (e.g.ampicillin, penicillin, or vancomycin). Streptomycin Synergy susceptible predicts synergy between ampicillin, penicillin, or vancomycin plus streptomycin when isolates are susceptible to these agents. Combination therapy with ampicillin, penicillin or vancomycin(for susceptible strains) plus an aminoglycoside is usually indicated for serious enterococcal infections such as endocarditis, UNLESS high-level resistance to both gentamicin and streptomycin is documented. Orville Esteban DO LAB - MICROBIOLOGY ORDERABLES Fi nal Result [facility] [address] [place] [address], [facility] [phone] * US Abdomen Ltd W Comp Doppler (06/10/2025 11:03 AM CDT) Anatomical Region Laterality Modality Abdomen Ultrasound 06/10/2025 11:1 8 AM CDT Impressions 06/10/2025 12:13 PM CDT IMPRESSION: Examination is significantly limited due to portable study and patient's condition and body habitus. 1.Hepatic cirrhosis . Suboptimal study for evaluation for lesion. 2.Overall patent hepatic vasculature within limitation of the study. 3.Cholelithiasis. 4.Splenomegaly. > Dictated by Irma Pretty (executive vice president). > Dictated by Editing Clerk I, Deonna Barboza have personally reviewed and interpreted this examination/study. > Interpreting Provider: Deonna Barboza on 06/10/2025 12:13 PM Narrative 06/10/2025 12:13 PM CDT PROCEDURE: US ABDOMEN LTD W COMP DOPPLER DATE/TIME OF EXAM: 06/10/2025 11:03 AM CLINICAL INFORMATION: None relevant/not provided if blank. Indication: K74.60: Hepatic cirrhosis, unspecified hepatic cirrhosis type, unspecified whether ascites present (HCC) Additional History: COMPARISON: CT chest abdomen and pelvis 06/09/2025. TECHNIQUE: Ultrasound of the liver' was performed utilizing standard protocol. Grayscale images were obtained; additionally, Color Doppler and pulse wave Spectral Doppler interrogation was performed and interpreted. FINDINGS: Examination is significantly limited due to portable study and patient's condition and body habitus. Abdomen: The liver has a coarse echotexture and nodular surface, consistent with cirrhosis. Due to limited study, cannot definitively rule out hepatic masses. There is small volume ascites. Gallstones visualized. The gallbladder wall is normal in thickness, measuring 4 mm. Sonographic Abraham's sign is negative. The common bile duct is poorly visualized. The right kidney measures 9.9 x 5.6 x 5.5 cm. Limited views of the right kidney reveal no evidence of nephrolithiasis or hydronephrosis. The spleen measures 15.4 cm in length. The visible pancreas is normal in echogenicity. Liver Doppler: Color and spectral Doppler evaluation demonstrates patency of the hepatic veins with appropriate flow direction and multiphasic waveforms. The main, and right portal veins appear patent with normal hepatopetal flow. Left portal vein is not well visualized. The main portal vein demonstrates a normal phasic waveform and velocity measures 17.5-18.1 cm/s. The proper hepatic artery is patent and demonstrates a normal arterial waveform with brisk systolic upstroke and antegrade flow. Resistive index in the proper hepatic artery measures 0.64. Procedure Note Deonna Grove MD - 06/10/2025 PROCEDURE: US ABDOMEN LTD W COMP DOPPLER DATE/TIME OF EXAM: 06/10/2025 11:03 AM CLINICAL INFORMATION: None relevant/not provided if blank. Indication: K74.60: Hepatic cirrhosis, unspecified hepatic cirrhosistype, unspecified whether ascites present (HCC) Additional History: COMPARISON: CT chest abdomen and pelvis 06/09/2025. TECHNIQUE: Ultrasound of the liver' was performed utilizing standard protocol. Grayscale images were obtained; additionally, Color Doppler and pulsewave Spectral Doppler interrogation was performed and interpreted. FINDINGS: Examination is significantly limited due to portable study and patient's condition and body habitus. Abdomen: The liver has a coarse echotexture and nodular surface, consistent with cirrhosis. Due to limited study, cannot definitively rule out hepatic masses. There is small volume ascites. Gallstones visualized. The gallbladder wall is normal in thickness, measuring 4 mm. Sonographic Abraham's sign is negative. The common bileduct is poorly visualized. The right kidney measures 9.9 x 5.6 x 5.5 cm. Limited views of the right kidney reveal no evidence of nephrolithiasis or hydronephrosis. Thespleen measures 15.4 cm in length. The visible pancreas is normal inechogenicity. Liver Doppler: Color and spectral Doppler evaluation demonstrates patency of thehepatic veins with appropriate flow direction and multiphasic waveforms. The main, and right portal veins appear patent with normal hepatopetal flow. Left portal vein is not well visualized. The main portal vein demonstrates a normal phasic waveform and velocity measures 17.5-18.1cm/s. The proper hepatic artery is patent and demonstrates a normal arterial waveform with brisk systolic upstroke and antegrade flow. Resistiveindex in the proper hepatic artery measures 0.64. IMPRESSION: Examination is significantly limited due to portable study and patient's condition and body habitus. 1.Hepatic cirrhosis . Suboptimal study for evaluation for lesion. 2.Overall patent hepatic vasculature within limitation of the study. 3.Cholelithiasis. 4.Splenomegaly. > Dictated by Irma Pretty (executive vice president). > Dictated by Editing Clerk I, Deonna Barboza have personally reviewed and interpreted this examination/study. > Interpreting Provider: Deonna Barboza on 06/10/2025 12:13 PM us Fabian Pimentel DO US ORDERABLES Final Result * VANCOMYCIN LEVEL RANDOM (06/10/2025 4:08 AM CDT) Vancomycin Random 14.0 Therapeutic Ranges not established for random specimens ug/mL 06/10/2025 5:01 AM CDT [facility] Blood BLOOD SPECIMEN / Unknown Venipuncture / Unknown 06/10/2025 4:08 AM CDT 06/10/2025 4:17 AM CDT Narrative [facility] - 06/10/2025 5:01 AM CDT See institution protocol. us Maurilio Khan MD LAB - CHEMISTRY ORDERA BLES Final Result [facility] [address] [place] [address], [facility] [phone] * BLOOD TYPE VERIFICATION (06/09/2025 9:30 PM CDT) ABO Rh A POS 06/09/2025 10:[address] [facility] Blood Bank BLOOD SPECIMEN / Unknown Venipuncture / Unknown 06/09/2025 9:30 PM CDT 06/09/2025 9:34 PM CDT Orville Esteban DO LAB - BLOOD BANK ORDERABLES Sally l Result [facility] [address] [place] [address], [facility] [phone] * (ABNORMAL) BLOOD GASES CHRISS + COOX PANEL (06/09/2025 9:29 PM CDT) pH Venous 7.43(H) 7.32 - 7.42 pH 06/09/2025 9:40 PM [facility] pO2 Venous 60(H) 35 - 40 mmHg 06/09/2025 9:40 PM [facility] pCO2 Venous 46 40 - 50 mmHg 06/09/2025 9:40 PM [facility] HCO3 Venous 30.5(H) 20 - 30 mmol/L 06/09/2025 9:40 PM [facility] Base Excess Venous 5.4(H) -2.0 - 2.0 mmol/L 06/09/2025 9:40 PM [facility] Oxyhemoglobin Venous 86.9 % 05/13 9:40 PM [facility] Deoxyhemoglobin (HHB) Venous % 10.4 % 06/09/2025 9:40 PM [facility] Methemoglobin <0.8 0.0 - 2.0 % 06/09/2025 9:40 PM [facility] Carboxyhemoglobin 2.1(H) 0.0 - 2.0 % 2024 9:40 PM [facility] O2 Content Venous 14.1 Interpret within clinical context ml/dL 06/09/2025 9:40 PM CDT [facility] Hemoglobin by COOX 11.5(L) 12.0 - 17.6 g/dL 06/09/2025 9:[address] [facility] O2 Saturation Venous 89 >=70 % 05/13 9:40 PM T [facility] FI O2 Mixed Venous 21.0 % 2024 9:40 PM T [facility] Blood BLOOD SPECIMEN / Unknown Venipuncture / Unknown 06/09/2025 9:29 PM CDT 06/09/2025 9:[address] [facility] - 06/09/2025 9:40 PM CDT Carboxyhemoglobin Normal Concentration: Non-smokers: 0-2%; Smokers: 0-9%; Toxic: >20% us Fabian Pimentel DO LAB - BLOOD GASES ORDERABLES Fin al Result [address] [address], [facility] [phone] * (ABNORMAL) HEMOGLOBIN A1C (06/09/2025 9:29 PM CDT) Hemoglobin A1c 6.1(H) <=5.6 % 06/10/2025 8:45 AM [facility] Estimated Average Glucose 128 mg/dL 06/10/2025 8:45 AM [facility] Comment: HbA1c Interpretation: Normal : < 5.7% Pre-diabetes: 5.7-6.4% Diabetes: Equal to or greater than 6.5% Test results diagnostic of diabetes should be repeated for confirmation. Treatment target values recommended by ADA and other clinical organizations should be used to evaluate metabolic control in patients. Reference: [place] [employer], Standards of Care in Diabetes -2020 In patients 70 years and older consider HbA1c target range of 7.0-7.5% (Reference: James Haynes et al. JAMDA. 2012) The Sebia assay for the measurement of HbA1c is a National Glycohemoglobin Standardization Program (NGSP) certified method. Blood BLOOD SPECIMEN / Unknown Venipuncture / Unknown 06/09/2025 9:29 PM CDT 06/09/2025 9:33 PM CDT us Fabian Pimentel DO LAB - CHEMISTRY ORDERABLES Final Result Performing Organization Address City/[facility]/ZIP Co de Phone Number [address] [address], [place] [phone] * (ABNORMAL) LACTIC ACID BLOOD REFLEX TO REPEAT (06/09/2025 8:43 PM CDT) Only the most recent of6 resultswithin the time period is included. [facility] Lactic Acid-Stat 11.0(HH) <=2.0 mmol/L 06/09/2025 9:41 PM CDT [facility] Blood BLOOD SPECIMEN / Unknown Venipuncture / Unknown 06/09/2025 8:43 PM CDT 06/09/2025 8:52 PM CDT us Jed Rivas MD LAB - CHEMISTRY ORDERABLES Fi nal Result Performing Organization Address [facility]/ZIP Co de Phone Number [address] [address], [place] [phone] * HEPATITIS C AB SCREEN RFLX NAAT QUANT (06/09/2025 8:43 PM CDT) [facility] Hepatitis C Antibody Non-react ying Non-reac tive 06/10/2025 2:15 AM CDT [facility] Comment:Hepatitis C Antibody screen indicates no serologic evidence of past or current infection with Hepatitis C Virus. Patients with unexplained liver disease who are immunocompromised or suspected of having acute Hepatitis C infection may benefit from Nucleic Acid Test (RODRIGO) for Hepatitis C Viral RNA to confirm Hepatitis C status. Blood BLOOD SPECIMEN / Unknown Venipuncture / Unknown 06/09/2025 8:43 PM CDT 06/09/2025 8:51 PM CDT us Fabian Pimentel DO LAB - CHEMISTRY ORDERABLES Final Result Performing Organization Address City/[facility]/ZIP Co de Phone Number [address] [address], [place] [phone] * HIV-1 HIV-2 ANTIBODY + HIV P24 AG PANEL (06/09/2025 8:43 PM CDT) HIV Antigen/Antibod y 1 & 2 Non-reacti ve Non-react ying 06/10/2025 2:51 AM CDT [facility] Comment:No Laboratory eviden ce of HIV infection. Blood BLOOD SPECIMEN / Unknown Venipuncture / Unknown 06/09/2025 8:43 PM CDT 06/09/2025 8:51 PM CDT us Rohun Pimentel DO LAB - CHEMISTRY ORDERABLES Final Result Performing Organization Address City/[facility]/ZIP Co de Phone Number [address] [address], [facility] [phone] * HEPATITIS B SURFACE ANTIBODY QUANT (06/09/2025 8:43 PM CDT) Hepatitis B Virus Surface Antibody Non-react ying Non-react ying 06/10/2025 2:16 AM CDT [facility] Comment: < 8 mIU/mL Hepatitis B surface Antibody (HBsAb). Nonreactive for HBsAb - individual is considered not immune to Hepatitis B Virus infection. Hepatitis B Surface Antibody Quantitative <3.0 <8.0 mIU/mL 06/10/2025 2:16 AM CDT [facility] Comment: Hepatitis B Surface Antibody Numeric Result Interpretation: Nonreactive: <8.0 mIU/mL Indeterminate: 8.0 - 12.0 mIU/mL Reactive: >12.0 mIU/mL Blood BLOOD SPECIMEN / Unknown Venipuncture / Unknown 06/09/2025 8:43 PM CDT 06/09/2025 8:51 PM CDT Narrative [facility] - 06/10/2025 2:16 AM CDT This assay should not be used for blood, plasma, or tissue donor screening. This assay is not recommended for neonates born to HBV-infected or suspected HBV-infected mothers. us Rohun Pimentel DO LAB - SEROLOGY ORDERABLES Final Result Performing Organization Address City/[facility]/ZIP Co de Phone Number [address] [address], [place] [phone] * (ABNORMAL) B-TYPE NATRIURETIC PEPTIDE (06/09/2025 8:43 PM CDT) [facility] BNP 278(H) <100 pg/mL 06/09/2025 9:51 PM CDT [facility] Comment: A decision threshold of 100 pg/mL has been demonstrated to provide the maximal combination of sensitivity, specificity and predictive value for the diagnosis of congestive heart failure (CHF). Virtually all patients with no evidence of CHF have BNP values less than 100 pg/mL. A BNP value greater than 100 pg/mL is consistent with the diagnosis of CHF in the appropriate clinical setting. In a study of 693 patients (male and female) with diagnosed CHF, the following values were determined based on the NYHA functional classification system: NYHA Functional Class Mean Valule (pg/mL) % >100 pg/mL I 320 58.1 II 432 73.0 III 656 79.0 IV 1635 98.3 Blood BLOOD SPECIMEN / Unknown Venipuncture / Unknown 06/09/2025 8:43 PM CDT 06/09/2025 8:52 PM CDT Fabian Pimentel DO LAB - CHEMISTRY ORDERABLES Final Result [address] [address], [facility] [phone] * HEPATITIS B CORE ANTIBODY TOTAL (06/09/2025 8:43 PM CDT) [facility] HBc Antibody Total Non-reacti ve Non-reacti ve 06/10/2025 2:15 AM CDT [facility] Blood BLOOD SPECIMEN / Unknown Venipuncture / Unknown 06/09/2025 8:43 PM CDT 06/09/2025 8:51 PM CDT us Fabian Pimentel DO LAB - CHEMISTRY ORDERABLES Final Result [address] [address], [facility] [phone] * HEPATITIS B SURFACE ANTIGEN W RFLX CONFIRMATION (06/09/2025 8:43 PM CDT) Hepatitis B Virus Surface Antigen Non-reacti ve Non-reacti ve 06/10/2025 2:[address] [facility] Blood BLOOD SPECIMEN / Unknown Venipuncture / Unknown 06/09/2025 8:43 PM CDT 06/09/2025 8:51 PM CDT us Acconcepcion Pimentel DO LAB - CHEMISTRY ORDERABLES Final Result [facility] [address] [place] [address], [facility] [phone] * CARDIAC EKG ORDER (06/09/2025 1:55 PM CDT) Narrative 06/09/2025 1:55 PM CDT Ordered by an unspecified provider. us Scanned Document CARDIAC SERVICES ORDERABLES Fin al Result * CT Chest Abdomen Pelvis W Cont (06/09/2025 4:59 AM CDT) Anatomical Region Laterality Modality Chest, Abdomen, Pelvis Computed Tomography 06/09/2025 5:01 AM CDT Impressions 06/09/2025 9:13 AM CDT Impression: 1.The study is not optimized for pulmonary embolism evaluation. Within this limitation: Large filling defect within the right bronchus intermedius pulmonary artery consistent with pulmonary embolism. 2.Hepatic cirrhosis with sequelae of portal hypertension including splenomegaly, perisplenic varices, and a splenorenal shunt. These findings were discussed in detail with the patient's care provider, Dr Foster by Dr. Jaqueline Ulrich via telephone at 06/09/2025 5:21 AM with readback comprehension and verification. > Dictated by Jaqueline Ulrich Dr, MD (executive vice president). > Dictated by Editing Clerk I, Deonna Barboza have personally reviewed and interpreted this examination/study. > Interpreting Provider: Deonna Barboza on 06/09/2025 9:13 AM Narrative 06/09/2025 9:13 AM CDT PROCEDURE: CT CHEST ABDOMEN PELVIS W CONT, DATE/TIME OF EXAM: 06/09/2025 5:00 AM, LOCATION [facility] INDICATION: R53.1: Weakness R41.82: Altered mental status, unspecified altered mental status type ADDITIONAL CLINICAL INFORMATION: Ordering Provider Reason For Exam: Infection Technologist Note: Additional: COMPARISON: None. TECHNIQUE: CT of the chest, abdomen, and pelvis was performed after the uneventful administration of 100 mL of Isovue 370 intravenous contrast according to standard protocol. Findings: Chest: Pacemaker device overlies the right chest wall with leads terminating within the right atrium and right ventricle. Lower Neck and Axillae: Normal. Lungs: Mild bilateral dependent atelectasis is present. Paraseptal bleb along the left lung base. No suspicious pulmonary nodules are identified. Calcific granuloma in the left upper lobe. No pleural fluid or pneumothorax is present. Heart and Pericardium: The cardiac chambers are normal in size. No pericardial fluid or thickening is present. The coronary arteries are atherosclerotic. Mediastinum and Whit: No mediastinal hemorrhage is present. No enlarged lymph nodes are present. Thoracic Vasculature: The aorta and its branch vessels are atherosclerotic. There is a filling defect within the segmental and subsegmental arteries supplying the right upper lobe consistent with acute pulmonary emboli versus less likely artifact. Further evaluation of bilateral subsegmental branches are limited due to poor opacification of the pulmonary arteries (the large thrombus is better visualized on concurrently ordered CT Angio Neck). Abdomen/pelvis: Liver: The liver has a nodular surface, consistent with hepatic cirrhosis. Gallbladder and Bile Ducts: Multiple gallstones are seen. No wall thickening or pericholecystic fluid. Spleen: Multiple calcified granulomas are noted in the spleen, likely sequelae of prior granulomatous disease. Splenomegaly measuring up to 16.5 cm. Pancreas: Normal. Adrenals: Normal. Kidneys: Normal. Gastrointestinal: The stomach and visualized loops of large and small bowel are unremarkable. The appendix is not seen; however, no inflammatory changes are seen in the right lower quadrant. Mesentery/Peritoneum/Retroperitoneum: No free intraperitoneal air. No free fluid in the abdomen or pelvis. Bladder: Normal. Reproductive Organs: The prostate is diminutive or absent, recommend correlation with surgical history. Abdominal Vasculature: Atherosclerotic calcification of the aorta and its branch vessels. Large perisplenic varices and a splenorenal shunt are present. Bones: Bone windows demonstrate no suspicious lytic or blastic lesions. The visible osseous structures are intact. Degenerative changes are seen in the spine. Severe thoracolumbar kyphosis. Soft tissues: Normal. Procedure Note Deonna Grove MD - 06/09/2025 PROCEDURE: CT CHEST ABDOMEN PELVIS W CONT, DATE/TIME OF EXAM:06/09/2025 5:00 AM, LOCATION [facility] INDICATION: R53.1: Weakness R41.82: Altered mental status, unspecified altered mental status type ADDITIONAL CLINICAL INFORMATION: Ordering Provider Reason For Exam: Infection Technologist Note: Additional: COMPARISON: None. TECHNIQUE: CT of the chest, abdomen, and pelvis was performed after the uneventful administration of 100 mL of Isovue 370 intravenous contrast according to standard protocol. Findings: Chest: Pacemaker device overlies the right chest wall with leads terminating within the right atrium and right ventricle. Lower Neck and Axillae: Normal. Lungs: Mild bilateral dependent atelectasis is present. Paraseptal bleb alongthe left lung base. No suspicious pulmonary nodules are identified. Calcific granuloma in the left upper lobe. No pleural fluid or pneumothorax is present. Heart and Pericardium: The cardiac chambers are normal in size. No pericardial fluid orthickening is present. The coronary arteries are atherosclerotic. Mediastinum and Whit: No mediastinal hemorrhage is present. No enlarged lymph nodes arepresent. Thoracic Vasculature: The aorta and its branch vessels are atherosclerotic. There is a filling defect within the segmental and subsegmental arteries supplying the right upper lobe consistent with acute pulmonary emboli versus less likely artifact. Further evaluation of bilateralsubsegmental branches are limited due to poor opacification of the pulmonary arteries (the large thrombus is better visualized on concurrently ordered CTAngio Neck). Abdomen/pelvis: Liver: The liver has a nodular surface, consistent with hepatic cirrhosis. Gallbladder and Bile Ducts: Multiple gallstones are seen. No wall thickening or pericholecystic fluid. Spleen: Multiple calcified granulomas are noted in the spleen, likely sequelaeof prior granulomatous disease. Splenomegaly measuring up to 16.5 cm. Pancreas: Normal. Adrenals: Normal. Kidneys: Normal. Gastrointestinal: The stomach and visualized loops of large and small bowel areunremarkable. The appendix is not seen; however, no inflammatory changes are seen inthe right lower quadrant. Mesentery/Peritoneum/Retroperitoneum: No free intraperitoneal air. No free fluid in the abdomen or pelvis. Bladder: Normal. Reproductive Organs: The prostate is diminutive or absent, recommend correlation withsurgical history. Abdominal Vasculature: Atherosclerotic calcification of the aorta and its branch vessels. Large perisplenic varices and a splenorenal shunt are present. Bones: Bone windows demonstrate no suspicious lytic or blastic lesions. The visible osseous structures are intact. Degenerative changes are seen inthe spine. Severe thoracolumbar kyphosis. Soft tissues: Normal. Impression: 1.The study is not optimized for pulmonary embolism evaluation. Withinthis limitation: Large filling defect within the right bronchus intermedius pulmonary artery consistent with pulmonary embolism. 2.Hepatic cirrhosis with sequelae of portal hypertension including splenomegaly, perisplenic varices, and a splenorenal shunt. These findings were discussed in detail with the patient's careprovider, Dr Foster by Dr. Jaqueline Ulrich via telephone at 06/09/2025 5:21 AMwith readback comprehension and verification. > Dictated by Jaqueline Ulrich Dr, MD (executive vice president). > Dictated by Editing Clerk I, Deonna Barboza have personally reviewed and interpreted this examination/study. > Interpreting Provider: Deonna Barboza on 06/09/2025 9:13 AM Maurilio Khan MD CT ORDERABLES Final Result * CT Angio Brain And Neck (06/09/2025 4:59 AM CDT) Anatomical Region Laterality Modality Head Computed Tomogra phy 06/09/2025 5:14 AM CDT Impressions 06/09/2025 10:31 AM CDT IMPRESSION: 1.No acute intracranial hemorrhage. 2.No large arterial occlusions or significant stenoses identified in the head or neck. 3.Acute pulmonary emboli in the distal right pulmonary artery, and segmental and subsegmental arteries supplying the right upper lobe. Viz.AI was used for large vessel occlusion detection. These findings were discussed in detail with the patient's care provider, Dr Fotser by Dr. Jaqueline Ulrich via telephone at 06/09/2025 5:21 AM with readback comprehension and verification. The report was drafted by Lisa Hebert MD (resident buyer). > Dictated by Editing Clerk I, Talha Rae MD have personally reviewed and interpreted this examination/study. > Interpreting Provider: Talha Rae MD on 06/09/2025 10:31 AM Narrative 06/09/2025 10:31 AM CDT PROCEDURE: CT ANGIO BRAIN AND NECK, DATE/TIME OF EXAM: 06/09/2025 5:00 AM, LOCATION [facility] INDICATION: R53.1: Weakness ADDITIONAL CLINICAL INFORMATION: Ordering Provider Reason For Exam: cva EXAMINATION: 1. Computed tomographic (CT) angiography of the head without and with contrast 2. CT angiography of the neck with contrast CONTRAST: IOPAMIDOL 76 % IV SOLN:100 mL TECHNIQUE: CT of the head was performed without contrast according to standard protocol. Then CT angiography of the head and neck was obtained after the uneventful administration of 100 mL Isovue-370 intravenous contrast. Three dimensional postprocessing was performed by the technologist and sent to the workstation for review. Stenosis measurements are based on NASCET criteria. CT dose reduction technique was used, including Automated Exposure Control. COMPARISON: CT brain stroke from 06/08/2025 FINDINGS: Non-angiographic findings: No acute intra- or extra-axial fluid collections are identified. There is moderate cerebral volume loss with associated minimal ex vacuo ventricular dilatation however, there is prominent subarachnoid spaces along the frontal and temporal convexities The basilar cisterns are patent. No mass effect or midline shift is seen. The wright-white matter differentiation is obscured. Periventricular white matter hypoattenuation is indicative of chronic small vessel ischemic disease. There is vascular calcification of the carotid siphons. No acute calvarial fracture is identified. Other than bilateral cataract extractions, the orbits appear normal. There is localized calcifications along the bilateral frontal dura, likely hyperostosis frontalis interna. There is mild paranasal sinus disease. The mastoid air cells are clear. No soft tissue abnormality is identified. 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 Partially visualized right chest wall cardiac pacemaker device with subclavian approach leads. Angiographic findings: There is atherosclerotic disease of the aortic arch. The configuration of the brachiocephalic vessels is typical. There is atherosclerotic calcification of the innominate and subclavian arteries. There is atherosclerotic disease of the right carotid bifurcation and origin of the right internal carotid artery without focal stenosis. The right common and internal carotid arteries otherwise appear normal. There is atherosclerotic disease of the left carotid bifurcation and origin of the left internal carotid artery without focal stenosis. The left common and internal carotid arteries otherwise appear normal. Other than mild focal stenosis at their origins due to atherosclerotic disease, the cervical vertebral arteries appear normal. Filling defects within the distal right pulmonary artery, and the segmental and subsegmental arteries supplying the right upper lobe consistent with acute pulmonary emboli. There is atherosclerotic disease involving the distal internal carotid arteries without significant focal stenosis. The anterior and middle cerebral arteries appear normal. Multifocal stenosis of distal vertebral arteries without occlusion. The basilar artery and posterior cerebral arteries appear normal with origin of the left posterior cerebral artery. No aneurysms, vascular occlusions, or intracranial stenoses are identified. Procedure Note Talha Rae MD - 06/09/2025 PROCEDURE: CT ANGIO BRAIN AND NECK, DATE/TIME OF EXAM: 06/09/2025 5:00AM, LOCATION [facility] INDICATION: R53.1: Weakness ADDITIONAL CLINICAL INFORMATION: Ordering Provider Reason For Exam: cva EXAMINATION: 1. Computed tomographic (CT) angiography of the head without and with contrast 2. CT angiography of the neck with contrast CONTRAST: IOPAMIDOL 76 % IV SOLN:100 mL TECHNIQUE: CT of the head was performed without contrast according to standard protocol. Then CT angiography of the head and neck was obtained after the uneventful administration of 100 mL Isovue-370 intravenous contrast. Three dimensional postprocessing was performed by the technologist and sent to the workstation for review. Stenosismeasurements are based on NASCET criteria. CT dose reduction technique was used, including Automated Exposure Control. COMPARISON: CT brain stroke from 06/08/2025 FINDINGS: Non-angiographic findings: No acute intra- or extra-axial fluid collections are identified. Thereis moderate cerebral volume loss with associated minimal ex vacuoventricular dilatation however, there is prominent subarachnoid spaces along the frontal and temporal convexities The basilar cisterns are patent. Nomass effect or midline shift is seen. The wright-white matter differentiationis obscured. Periventricular white matter hypoattenuation is indicative of chronic small vessel ischemic disease. There is vascular calcificationof the carotid siphons. No acute calvarial fracture is identified. Other than bilateral cataract extractions, the orbits appear normal. There is localized calcifications along the bilateral frontal dura, likely hyperostosis frontalis interna. There is mild paranasal sinus disease. The mastoid air cells are clear.No soft tissue abnormality is identified. Severe multilevel degenerative disc and joint disease in the cervicalspine causing up to severe central canal or neuroforaminal stenosis. Partially visualized right chest wall cardiac pacemaker device with subclavian approach leads. Angiographic findings: There is atherosclerotic disease of the aortic arch. The configurationof the brachiocephalic vessels is typical. There is atherosclerotic calcification of the innominate and subclavian arteries. There is atherosclerotic disease of the right carotid bifurcation and origin ofthe right internal carotid artery without focal stenosis. The right commonand internal carotid arteries otherwise appear normal. There isatherosclerotic disease of the left carotid bifurcation and origin of the left internal carotid artery without focal stenosis. The left common and internalcarotid arteries otherwise appear normal. Other than mild focal stenosis attheir origins due to atherosclerotic disease, the cervical vertebral arteries appear normal. Filling defects within the distal right pulmonary artery, and thesegmental and subsegmental arteries supplying the right upper lobe consistent with acute pulmonary emboli. There is atherosclerotic disease involving the distal internal carotid arteries without significant focal stenosis. The anterior and middle cerebral arteries appear normal. Multifocal stenosis of distal vertebral arteries without occlusion. The basilar artery and posterior cerebral arteries appear normal with origin of the left posterior cerebral artery. No aneurysms, vascular occlusions, or intracranial stenoses are identified. IMPRESSION: 1.No acute intracranial hemorrhage. 2.No large arterial occlusions or significant stenoses identified in the head or neck. 3.Acute pulmonary emboli in the distal right pulmonary artery, and segmental and subsegmental arteries supplying the right upper lobe. Viz.AI was used for large vessel occlusion detection. These findings were discussed in detail with the patient's careprovider, Dr Foster by Dr. Jaqueline Ulrich via telephone at 06/09/2025 5:21 AMwith readback comprehension and verification. The report was drafted by Lisa Hebert MD (resident buyer). > Dictated by Editing Clerk I, Talha Rae MD have personally reviewed and interpreted this examination/study. > Interpreting Provider: Talha Rae MD on 06/09/2025 10:31 AM Maurilio Khan MD CT ORDERABLES Final Result * (ABNORMAL) URINALYSIS REFLEX MICROSCOPIC REFLEX CULTURE (06/09/2025 3:12 AM [facility]) Color UA Yellow Yellow, Straw 06/09/2025 3:42 AM [facility] Clarity UA Turbid(A) Clear 06/09/2025 3:42 AM [facility] Glucose UA Normal Normal 06/09/2025 3:42 AM [facility] Bilirubin UA Negative Negative 06/09/2025 3:42 AM [facility] Ketone UA Negative Negative 06/09/2025 3:42 AM [facility] Specific [place] UA 1.010 1.005 - 1.030 06/09/2025 3:42 AM [facility] Blood UA Negative Negative 06/09/2025 3:42 AM [facility] pH UA 5.5 5.0 - 8.0 06/09/2025 3:42 AM [facility] Protein UA Negative Negative 06/09/2025 3:42 AM [facility] Urobilinogen UA Normal Normal mg/dL 06/09/2025 3:42 AM [facility] Nitrite UA Negative Negative 06/09/2025 3:42 AM [facility] Leukocyte Esterase UA 500 FAUSTO/uL(A) Negative 06/09/2025 3:42 AM [facility] RBC UA 0-2 0 - 5 # /hpf 06/09/2025 3:42 AM [facility] WBC UA 51-100(A) 0 - 5 # /hpf 06/09/2025 3:42 AM [facility] Bacteria UA 3+(A) None Seen 06/09/2025 3:42 AM [facility] Squamous Epithelial Cells 0-2 0 - 5 /hpf 06/09/2025 3:42 AM [facility] Mucus UA 1+ /LPF 06/09/2025 3:42 AM [facility] Hyaline Casts 0-2 0 - 2 /LPF 06/09/2025 3:42 AM [facility] Reflex Status Culture to follow 06/09/2025 3:[address] [facility] Urine URINE SPECIMEN OBTAINED BY SINGLE CATHETERIZATION OF URINARY BLADDER / Unknown Collection / Unknown 06/09/2025 3:12 AM CDT 06/09/2025 3:14 AM CDT Maurilio Khan MD LAB - URINALYSIS ORDER RAHUL Final Result [facility] [address] [place] [address], [facility] [phone] * (ABNORMAL) CULTURE URINE (06/09/2025 3:12 AM CDT) Pathologist [facility] Culture Urine 50,000-100,000 CFU/mL Escherichia coli(A) JENNIFER 06/10/2025 8:12 PM CDT [facility] Urine URINE SPECIMEN OBTAINED BY SINGLE CATHETERIZATION OF URINARY BLADDER / Unknown Collection / Unknown 06/09/2025 3:12 AM CDT 06/09/2025 3:14 AM CDT Narrative [facility] - 06/10/2025 8:12 PM CDT Organism Antibiotic Method Susceptibility Escherichia coli Amikacin JENNIFER <=2 ug/mL: Susceptible Escherichia coli Ampicillin JENNIFER >=32 ug/mL: Resistant Escherichia coli Ampicillin-sulbactam JENNIFER 16 ug/mL: Intermediate Escherichia coli Cefazolin JENNIFER <=4 ug/mL: See Comment* Escherichia coli Cefazolin-Urine (uncomplicated infections ONLY) JENNIFER <=4 ug/mL: Susceptible Escherichia coli Cefepime JENNIFER <=1 ug/mL: Susceptible Escherichia coli Ceftriaxone JENNIFER <=1 ug/mL: Susceptible Escherichia coli Ciprofloxacin JENNIFER <=0.25 ug/mL: Susceptible Escherichia coli Gentamicin JENNIFER <=1 ug/mL: Susceptible Escherichia coli Meropenem JENNIFER <=0.25 ug/mL: Susceptible Escherichia coli Piperacillin-tazobactam JENNIFER <=4 ug/mL: Susceptible Escherichia coli Tobramycin JENNIFER <=1 ug/mL: Susceptible Escherichia coli Trimethoprim-sulfame thoxa zole JENNIFER <=20 ug/mL: Susceptible Comment: *Cefazolin JENNIFER of </=4 cannot distinguish between susceptible or intermediate for systemic breakpoints. If further defined interpretation is needed, call Microbiology and a disk diffusion test will be performed. Urine breakpoints for cefazolin should only be used when treating uncomplicated UTIs including men and women without urologic abnormality, kidney stones, stents, nephrostomy tubes, signs/symptoms of systemic illness, or pelvic/perineal pain in men. Cefazolin results can be used to predict susceptibility to oral cephalosporins - cephalexin, cefprozil, cefaclor, cefuroxime, cefdinir, and cefpodoxime. For complicated UTIs, use alternative cefazolin susceptibility result above. Maurilio Khan MD LAB - MICROBIOLOGY ORD ERABLES Final Result [facility] [address] [place] [address], [facility] [phone] * TROPONIN-I HIGH SENSITIVE REFLEX 1HOUR (06/09/2025 12:19 AM CDT) Pathologist [facility] Troponin I High Sensitive 13 <=35 ng/L 06/09/2025 1:[address] [facility] Delta Troponin I HS 06/09/2025 1:[address] [facility] Comment:Delta value intentio nereyda not calculated. Baseline to 1 hour specimen collection interval exceeded. Blood BLOOD SPECIMEN / Unknown Venipuncture / Unknown 06/09/2025 12:19 AM CDT 06/09/2025 12:38 AM CDT Maurilio Khan MD LAB - CHEMISTRY ORDERA BLES Final Result Performing Organization Address City/[facility]/ZIP Co de Phone Number [facility] [address] [place] [address], [facility] [phone] * CULTURE BLOOD (06/08/2025 11:32 PM CDT) Only the most recent of2 resultswithin the time period is included. Pathologist [facility] Culture No growth day 5 JENNIFER 06/14/2025 2:01 AM CDT [facility] Blood PERIPHERAL BLOOD / Unknown Lab Venipuncture / Unknown 06/08/2025 11:32 PM CDT 06/08/2025 11:36 PM CDT us Maurilio Khan MD LAB - MICROBIOLOGY ORD ERABLES Final Result [facility] [address] [place] [address], [facility] [phone] * TROPONIN-I HIGH SENSITIVE BASELINE + 1HR (06/08/2025 11:26 PM CDT) Troponin I High Sensitive 12 <=35 ng/L 06/09/2025 12:10 AM CDT [facility] Blood BLOOD SPECIMEN / Unknown Lab Venipuncture / Unknown 06/08/2025 11:26 PM CDT 06/08/2025 11:37 PM CDT Maurilio Khan MD LAB - CHEMISTRY ORDERA BLES Final Result Performing Organization Address City/[facility]/ZIP Co de Phone Number [facility] [address] [place] [address], [facility] [phone] from Last 3 Months Insurance MEDICARE [facility] MEDICARE [facility] Advance Directives * LIMITED RESUSCITATION-PRIOR AND AFTER ARREST (Latest Code Status on File) Date Activated Date Inactivated Comments 06/09/2025 7:35 PM 06/27/2025 11:34 AM Question Answer Comments Limited Resuscitation: No Chest Compress ionNo Intubation, No Invasive VentilationNo Cardioversion, No Defibrilation, No External or Internal Pacemaker Care Teams Pre Sales Technical Engineer Relationship Specialty Start Date End Date Hakan Mccormick MD PCP - General 04/24/11
[2025-07-01 10:29] LABS: Hematocrit 24.4 % (37.0-46.0); Hemoglobin 7.8 g/dL (12.4-15.3); Immature Platelet Fraction Pct 2.7 % (1.0-7.0); Mean Corpuscular HGB Conc 32.0 g/dL (32-36); Mean Corpuscular Hemoglobin 31.3 pg (27.0-31.0); Mean Corpuscular Volume 98.0 fL (78.0-102.0); Platelet Count Result 74 K/mm3 (150-420); Red Blood Count 2.49 M/mm3 (4.70-6.10); White Blood Count 2.3 K/mm3 (4.8-10.8)
[2025-07-01 10:31] LABS: Alanine Aminotransferase 23 U/L (6-50); Albumin Level 2.3 g/dL (3.5-5.1); Alkaline Phosphatase 114 U/L (38-126); Anion Gap 4 mmol/L (4-12); Aspartate Amino Transferase 46 U/L (17-59); Bilirubin,Total 1.7 mg/dL (0.2-1.3); Blood Urea Nitrogen 23 mg/dL (9-20); Calcium 8.2 mg/dL (8.4-10.2); Carbon Dioxide 37 mmol/L (22-30); Chloride 95 mmol/L (98-107); Cholesterol 66 mg/dL (0-200); Estimated Glomerular Filt Rate > 60; Glucose 103 mg/dL (65-110); HDL Direct 23 mg/dL; Osmolality Calculated 285 mOsm/kg (285-295); Potassium 2.9 mmol/L (3.4-5.0); Sodium 136 mmol/L (137-145); Total Protein 5.1 g/dL (6.3-8.2); Triglycerides 61 mg/dL (<150)
[2025-07-01 10:54] LABS: Hemoglobin A1C 5.0 % (<5.7)
[2025-07-01 11:02] LABS: Thyroid Stimulating Hormone 8.970 uIU/mL (0.465-4.680)
[2025-07-01 11:37] LABS: Vitamin B12 > 1000.0 pg/mL (239-931)
== END 2025-07-01 09:54 | disposition home or self-care (01) ==
LOC: CHSLAB 09:56
DX: G45.9 Transient cerebral ischemic attack, unspecified (principal); E11.42 Type 2 diabetes mellitus with diabetic polyneuropathy; G30.9 Alzheimer's disease, unspecified; I73.9 Peripheral vascular disease, unspecified; E78.5 Hyperlipidemia, unspecified; I48.91 Unspecified atrial fibrillation
CPT/HCPCS: 36415; 80053; 80061; 82607; 82746; 83036; 84436; 84443; 85027; 85055

== ENCOUNTER 2025-07-23 11:14 | Inpatient (IN) | payer MEDICARE, BC, SELFPAY ==
[2025-07-23] VITALS (34 sets, daily range): BP systolic 91–128; BP diastolic 46–74; PULSE 64–89; RESP 9–20; TEMP 36.1–36.8; O2SAT 97–100; BMI 31.6
--- NOTE | ~2025-07-23 | XR_ITS ---
EXAMINATION: XR chest 1V portable COMPARISON: No comparisons available. HISTORY: altered mental status FINDINGS: Moderate pulmonary venous congestion. Small basilar infiltrates. No pneumothorax. Moderate cardiomegaly. Mediastinal and hilar contours are within normal limits. Bony thorax no acute abnormality. Miscellaneous: Right pacemaker. Impression: CHF Reviewed, dictated and finalized at location A. Impression: CHF
--- NOTE | ~2025-07-23 | CT_ITS ---
EXAMINATION: CT brain wo amber, 07/23/2025 11:50 CDT HISTORY: altered mental status COMPARISON: No comparisons available. Technique: Axial images obtained of the brain without contrast. One or more of the following dose reduction techniques were used: automated exposure control, adjustment of the mA and/or kV according to patient size, use of iterative reconstruction technique. Findings: No acute infarct or parenchymal hemorrhage. No abnormal mass or mass effect. No midline shift. No extra-axial fluid collections. No hydrocephalus. Mastoid air cells unremarkable. Sinuses and orbits unremarkable. No acute fracture. No significant facial or scalp soft tissue swelling evident. No radiopaque foreign body is seen. Impression: 1.No acute intracranial abnormality. Reviewed, dictated and finalized at location A. Impression: 1.No acute intracranial abnormality.
--- NOTE | 2025-07-23 11:30 | ECG_ITS ---
Test Date: 2025-07-23 12:21:41 Measurements Intervals Gratis Rate: 81 P: 60 IN: 227 QRS: 24 QRSD: 113 T: -24 QT: 421 QTc: 490 Interpretive Statements electronic atrial pacemaker LOW QRS VOLTAGE IN PRECORDIAL LEADS [QRS DEFLECTION < 1.0 mV IN CHEST LEADS] ANTEROSEPTAL MYOCARDIAL INFARCTION , PROBABLY OLD [40+ ms Q WAVE IN V1-V4] Compared to ECG 05/25/2025 13:07:51 No significant changes Electronically Signed On 07-23-2025 13:27:46 CDT by Arnaldo Forbes M.D.
[2025-07-23 11:54] LABS: Hematocrit 24.9 % (37.0-46.0); Hemoglobin 8.3 g/dL (12.4-15.3); Immature Platelet Fraction Pct 3.3 % (1.0-7.0); Mean Corpuscular HGB Conc 33.3 g/dL (32-36); Mean Corpuscular Hemoglobin 31.3 pg (27.0-31.0); Mean Corpuscular Volume 94.0 fL (78.0-102.0); Platelet Count Result 59 K/mm3 (150-420); Red Blood Count 2.65 M/mm3 (4.70-6.10); White Blood Count 3.7 K/mm3 (4.8-10.8)
[2025-07-23] MEDS: SODIUM CHLORIDE 0.9% IV 1,000 ML 999 ML IV CONT (12:04)
[2025-07-23 12:08] LABS: Ammonia 47 umol/L (9-30)
[2025-07-23 12:11] LABS: Band Neutrophils Percent 0 % (0-6); Eosinophils Absolute Manual 0.07 K/mm3 (0.02-0.50); Eosinophils Percent Manual 2 % (1-6); INR 1.2; Lymphocytes Absolute Manual 0.92 K/mm3 (1.1-4.5); Lymphocytes Percent Manual 25 % (18-44); Monocytes Absolute Manual 0.44 K/mm3 (0.1-0.90); Monocytes Percent Manual 12 % (3-9); Neutrophils Absolute Manual 2.25 K/mm3 (1.3-6.7); Neutrophils Percent Manual 61 % (46-73); Partial Thromboplastin Time 38.8 Sec (23.9-30.70); Prothrombin Time 13.3 Seconds (9.50-12.1); Total Cells Counted 100
[2025-07-23 12:21] LABS: Sodium 134 mmol/L (137-145)
[2025-07-23 12:22] LABS: Anion Gap 10 mmol/L (4-12); Carbon Dioxide 36 mmol/L (22-30); Chloride 88 mmol/L (98-107); Potassium 2.1 mmol/L (3.4-5.0)
[2025-07-23 12:23] LABS: Alanine Aminotransferase 40 U/L (6-50); Aspartate Amino Transferase 63 U/L (17-59); Bilirubin,Total 1.8 mg/dL (0.2-1.3); Blood Urea Nitrogen 21 mg/dL (9-20); Calcium 8.1 mg/dL (8.4-10.2); Estimated CRCL calculation 49 ml/min; Estimated Glomerular Filt Rate 48; Glucose 144 mg/dL (65-110); Osmolality Calculated 284 mOsm/kg (285-295); Troponin I 0.020 ng/mL (0.000-0.034)
[2025-07-23 12:24] LABS: Albumin Level 2.8 g/dL (3.5-5.1); Alkaline Phosphatase 106 U/L (38-126); NT Pro B Type Natriuretic Pept 847 pg/mL (19.9-100); Total Protein 6.0 g/dL (6.3-8.2)
[2025-07-23 12:28] LABS: Influenza A QL RT-PCR Negative (Negative); Influenza B QL RT-PCR Negative (Negative); RSV RNA, RT-PCR Negative (Negative); SARS-CoV-2 RNA PCR Negative (Negative)
[2025-07-23] MEDS: KCL 20 MEQ/SW 100 ML 100 ML 50 MEQ IVPB (12:38)
[2025-07-23 12:39] LABS: Thyroid Stimulating Hormone 7.700 uIU/mL (0.465-4.680)
[2025-07-23 12:52] LABS: Potassium 2.1 mmol/L (3.4-5.0)
[2025-07-23 13:21] LABS: Add Urine Microscopic? YES; Glucose Urine UA Negative (Negative); Leukocyte Esterase Ur 1+ LEU/UL (Negative); Nitrate Urine Positive (Negative); Specific Grav Ur 1.010 (1.010-1.020)
[2025-07-23 13:26] LABS: Appearance Urine Sl Cloudy (Clear)
--- NOTE | 2025-07-23 13:34 | ED.AMS ---
HPI - Altered Mental Status General Chief Complaint: Altered Mental Status Stated Complaint: lethargic Time Seen by Provider: 07/23/25 11:27 Source: patient, family and EMS Mode of arrival: ambulatory Limitations: altered mental status and physical limitation History of Present Illness HPI narrative: this is an 80-year-old longterm patient DNR presents via EMS after longterm staff found that he has been having altered mental status patient has a history of CHF history of pancytopenia with hypertension hyperlipidemia and diabetes his blood sugars currently 144. Otherwise the patient is not complaining of a headache but no neurological deficits there is no chest pain or shortness of breath no nausea vomiting no abdominal pain at no diarrhea constipation. MD complaint: altered mental status Onset (ago): hour(s) Timing confirmed by: family member and caregiver Severity: moderate Consistency of symptoms: waxing and waning Related Data Home Medications ?Medication ?Instructions ?Recorded ?Confirmed ?Last Taken ?Type aspirin 81 mg tablet 81 mg PO DAILY 07/01/24 05/25/25 07/01/24 History atorvastatin 40 mg tablet 40 mg PO QPM 07/01/24 05/25/25 07/01/24 History carvedilol 6.25 mg tablet 6.25 mg PO BID 07/01/24 05/25/25 07/01/24 History chlorthalidone 50 mg tablet 50 mg PO DAILY 07/01/24 05/25/25 07/01/24 History mecobalamin (vitamin B12) 500 mcg 500 mcg PO DAILY 07/01/24 05/25/25 07/01/24 History chewable tablet metformin 500 mg tablet 2,000 mg PO HS 07/01/24 05/25/25 06/30/24 History oxybutynin chloride 5 mg tablet 5 mg PO BID 07/01/24 05/25/25 07/01/24 History potassium chloride 20 mEq 20 meq PO DAILY 07/01/24 05/25/25 07/01/24 History tablet,extended release(part/cryst) torsemide 40 mg tablet 40 mg PO QAM 05/25/25 05/25/25 Unknown History Allergies Allergy/AdvReac Type Severity Reaction Status Date / Time Iodinated Contrast Media Allergy Unknown Anaphylaxis Verified 07/23/25 11:29 Review of Systems Review of Systems: All systems reviewed & are unremarkable except as noted in HPI and below PMFSH Past Medical History Medical History Myocardial infarction Social History Social History Smoking status: Never smoker Second hand tobacco smoke exposure: Yes Alcohol intake: former Alcohol use details: none since 2009 Substance use: never Living arrangements: with family Spiritual care concerns: No Exam Const: General: no acute distress, alert and ill appearing Nutritional Appearance: obese Limitations: altered mental status HENMT: Head: normal to inspection Eyes: Conjunctivae: conjunctivae normal Pupils: Equal, round and reactive pupils present EOM: EOMs intact bilaterally Neck: Neck: normal visual inspection, no lymphadenopathy and no meningeal signs Chest: Chest palpation & inspection: normal inspection of the chest Resp: Effort & Inspection: normal respiratory effort Auscultation: clear to auscultation bilaterally Cardio: Rate: regular rate Rhythm: regular rhythm GI: GI Palp: Yes Soft to palpation Auscultation: normal bowel sounds : General: Yes bladder normal to palpation Skin: General skin exam: normal color Rashes: no rashes Neuro: General: patient oriented x3, moves all extremities, no meningeal signs and no focal motor deficits Extrem: General: normal to inspection, no clubbing, cyanosis or edema and no pedal edema Course Course Emergency Course: Patient with altered mental status has a positive UA with 3+ bacteria positive leukocytes white count is 3.7, his H&H is 8.3 and 24 with platelets of 559 has a history of pancytopenia his current potassium level was 2.1 and initially brought in by EMS with a blood pressure 102/59 currently blood pressure after L of normal saline is 122/69 patient with history of CHF has a BNP of 847 troponins were negative TSH of 7.7. CT scan of the brain shows no acute abnormality chest x-ray shows no acute cardiopulmonary abnormalities except for CHF changes. Potassium of 2.1 received K rider and oral potassium. Patient with UA is positive will start ceftriaxone 1g IV. Will admit to hospitalist service for dehydration altered mental status with urinary tract infection hyperkalemia. Vital Signs Vital signs: Vital Signs Temperature 36.6 C 07/23/25 11:14 Pulse Rate 80 07/23/25 11:14 Respiratory Rate 15 07/23/25 11:14 Blood Pressure 97/55 L 07/23/25 11:14 Pulse Oximetry 98 09/11/25 11:14 Oxygen Delivery Room Air 07/23/25 11:14 Temperature 36.8 C 07/23/25 13:30 Pulse Rate 81 07/23/25 13:30 Respiratory Rate 14 07/23/25 13:30 Blood Pressure 118/62 07/23/25 13:30 Pulse Oximetry 98 07/23/25 13:30 Oxygen Delivery Room Air 07/23/25 13:30 MDM - Altered Mental Status Lab Data 07/23/25 11:45 07/23/25 12:29 Labs: Lab Results 07/23/25 07/23/25 07/23/25 Range/Units 11:45 11:47 12:29 WBC 3.7 L (4.8-10.8) K/mm3 RBC 2.65 L (4.70-6.10) M/mm3 Hgb 8.3 L (12.4-15.3) g/dL Hct 24.9 L (37.0-46.0) % MCV 94.0 (78.0-102.0) fL MCH 31.3 H (27.0-31.0) pg MCHC 33.3 (32-36) g/dL RDW 19.0 H (11.6-14.4) % Plt Count 59 L (150-420) K/mm3 MPV 10.7 (8.7-11.0) fl Immature Gran % (Auto) Not Reportable Neut % (Auto) Not Reportable Lymph % (Auto) Not Reportable [place] % (Auto) Not Reportable Eos % (Auto) Not Reportable Baso % (Auto) Not Reportable Lymph # (Auto) Not Reportable [place] # (Auto) Not Reportable Eos # (Auto) Not Reportable Baso # (Auto) Not Reportable Abs Immat Gran (auto) Not Reportable Absolute Neuts (auto) Not Reportable Absolute Nucleated RBC Not Reportable Total Counted 100 Neutrophils % (Manual) 61 (46-73) % Band Neutrophils % 0 (0-6) % Lymphocytes % (Manual) 25 (18-44) % Monocytes % (Manual) 12 H (3-9) % Eosinophils % (Manual) 2 (1-6) % Nucleated RBC % Not Reportable Abs Neuts (Manual) 2.25 (1.3-6.7) K/mm3 Abs Lymphs (Manual) 0.92 L (1.1-4.5) K/mm3 Abs Monocytes (Manual) 0.44 (0.1-0.90) K/mm3 Absolute Eos (Manual) 0.07 (0.02-0.50) K/mm3 Platelet Estimate Decreased (Adequate) % Immature Plt Fraction 3.3 (1.0-7.0) % Schistocytes Not Reportable PT 13.3 H (9.50-12.1) Seconds INR 1.2 APTT 38.8 H (23.9-30.70) Sec Sodium 134 L (137-145) mmol/L Potassium 2.1 L* 2.1 L* (3.4-5.0) mmol/L Chloride 88 L (98-107) mmol/L Carbon Dioxide 36 H (22-30) mmol/L Anion Gap 10 (4-12) mmol/L BUN 21 H (9-20) mg/dL Creatinine 1.41 H (0.7-1.3) mg/dL Estim Creat Clear Calc 49 ml/min Estimated GFR 48 L (59 - ) Glucose 144 H (65-110) mg/dL Calculated Osmolality 284 L (285-295) mOsm/kg Lactic Acid 4.7 H (0.4-2.0) mmol/L Calcium 8.1 L (8.4-10.2) mg/dL Total Bilirubin 1.8 H (0.2-1.3) mg/dL AST 63 H (17-59) U/L ALT 40 (6-50) U/L Alkaline Phosphatase 106 (38-126) U/L Ammonia 47 H (9-30) umol/L Troponin I 0.020 (0.000-0.034) ng/mL NT-Pro-B Natriuret Pep 847 H (19.9-100) pg/mL Total Protein 6.0 L (6.3-8.2) g/dL Albumin 2.8 L (3.5-5.1) g/dL TSH 7.700 H (0.465-4.680) uIU/mL Urine Color (Yellow) Urine Appearance (Clear) Urine pH (5.0-8.0) Ur Specific Aurora (1.010-1.020) Urine Protein (Negative) Urine Glucose (UA) (Negative) Urine Ketones (Negative) Ur Blood (Man) (Negative) Urine Nitrate (Negative) Urine Bilirubin (Negative) Urine Urobilinogen (0.2-1.0) mg/dL Leukocyte Esterase Rfl (Negative) FAUSTO/UL Urine RBC (0-2) /hpf Urine WBC (0-3) /hpf Ur Squamous Epith Cells (Few) /hpf Urine Bacteria (None) /hpf Influenza A (RT-PCR) Negative (Negative) Influenza B (RT-PCR) Negative (Negative) RSV (RT-PCR) Negative (Negative) SARS-CoV-2 RNA (RT-PCR) Negative (Negative) 07/23/25 Range/Units 13:13 WBC (4.8-10.8) K/mm3 RBC (4.70-6.10) M/mm3 Hgb (12.4-15.3) g/dL Hct (37.0-46.0) % MCV (78.0-102.0) fL MCH (27.0-31.0) pg MCHC (32-36) g/dL RDW (11.6-14.4) % Plt Count (150-420) K/mm3 MPV (8.7-11.0) fl Immature Gran % (Auto) Neut % (Auto) Lymph % (Auto) [place] % (Auto) Eos % (Auto) Baso % (Auto) Lymph # (Auto) [place] # (Auto) Eos # (Auto) Baso # (Auto) Abs Immat Gran (auto) Absolute Neuts (auto) Absolute Nucleated RBC Total Counted Neutrophils % (Manual) (46-73) % Band Neutrophils % (0-6) % Lymphocytes % (Manual) (18-44) % Monocytes % (Manual) (3-9) % Eosinophils % (Manual) (1-6) % Nucleated RBC % Abs Neuts (Manual) (1.3-6.7) K/mm3 Abs Lymphs (Manual) (1.1-4.5) K/mm3 Abs Monocytes (Manual) (0.1-0.90) K/mm3 Absolute Eos (Manual) (0.02-0.50) K/mm3 Platelet Estimate (Adequate) % Immature Plt Fraction (1.0-7.0) % Schistocytes PT (9.50-12.1) Seconds INR APTT (23.9-30.70) Sec Sodium (137-145) mmol/L Potassium (3.4-5.0) mmol/L Chloride (98-107) mmol/L Carbon Dioxide (22-30) mmol/L Anion Gap (4-12) mmol/L BUN (9-20) mg/dL Creatinine (0.7-1.3) mg/dL Estim Creat Clear Calc ml/min Estimated GFR (59 - ) Glucose (65-110) mg/dL Calculated Osmolality (285-295) mOsm/kg Lactic Acid (0.4-2.0) mmol/L Calcium (8.4-10.2) mg/dL Total Bilirubin (0.2-1.3) mg/dL AST (17-59) U/L ALT (6-50) U/L Alkaline Phosphatase (38-126) U/L Ammonia (9-30) umol/L Troponin I (0.000-0.034) ng/mL NT-Pro-B Natriuret Pep (19.9-100) pg/mL Total Protein (6.3-8.2) g/dL Albumin (3.5-5.1) g/dL TSH (0.465-4.680) uIU/mL Urine Color Light yellow (Yellow) Urine Appearance Sl cloudy A (Clear) Urine pH 6.0 (5.0-8.0) Ur Specific [place] 1.010 (1.010-1.020) Urine Protein Negative (Negative) Urine Glucose (UA) Negative (Negative) Urine Ketones Negative (Negative) Ur Blood (Man) Trace-intact H (Negative) Urine Nitrate Positive H (Negative) Urine Bilirubin Negative (Negative) Urine Urobilinogen 1.0 (0.2-1.0) mg/dL Leukocyte Esterase Rfl 1+ H (Negative) FAUSTO/UL Urine RBC 0-2 (0-2) /hpf Urine WBC 7-9 H (0-3) /hpf Ur Squamous Epith Cells Rare (Few) /hpf Urine Bacteria 3+ H (None) /hpf Influenza A (RT-PCR) (Negative) Influenza B (RT-PCR) (Negative) RSV (RT-PCR) (Negative) SARS-CoV-2 RNA (RT-PCR) (Negative) Critical Care Time Critical Care Time Critical Care Time: No Discharge Plan Discharge Clinical Impression: Acute alteration in mental status, Acute hyperkalemia, Acute dehydration Urinary tract infection Qualifiers: Urinary tract infection type: site unspecified Hematuria presence: without hematuria Qualified Code(s): N39.0 - Urinary tract infection, site not specified Patient Disposition: Acute Care Hospital Condition: Guarded Prognosis Patient Language: Vietnamese Prescriptions: No Action torsemide 40 mg tablet 40 mg PO QAM atorvastatin 40 mg tablet 40 mg PO QPM metformin 500 mg Tablet 2,000 mg PO HS carvedilol 6.25 mg tablet 6.25 mg PO BID chlorthalidone 50 mg Tablet 50 mg PO DAILY potassium chloride 20 mEq tablet,ER particles/crystals 20 meq PO DAILY aspirin 81 mg Tablet 81 mg PO DAILY oxybutynin chloride 5 mg Tablet 5 mg PO BID mecobalamin (vitamin B12) 500 mcg Tablet,Chewable 500 mcg PO DAILY Follow-up/Referrals: AndreyKisha M.D. [Primary Care Provider]
[2025-07-23 13:42] LABS: Cannabinoid Screen Urine Negative (Negative)
--- OUTSIDE RECORDS SUMMARY | 2025-07-23 13:57 | XMS_ITS | Encounter Summary ---
Author Organization [facility] Address [address] [place] [address] Phone Care Team Providers Care Hydrogeologist Name Role Phone Hakan Mccormick MD Primary Care Provider [phone] Jeannie Noyola RN Unavailable [phone] Sunita Irizarry RN Unavailable [phone] Kellee Cedillo RN Unavailable [phone] Maria Esther Montemayor OT Unavailable Unavailable Mahesh Llamas MD Primary Care Provider [phone] Encounter Details Date Type Department Care Team (Late st Contact Info) Description 01/22/2018 Orders Only [facility] ProviderMikayla MD [facility] [place] [address] Social History Tobacco Use Types Packs/Day Years Used Date Smoking Tobacco: Never Smokeless Tobacco: Never Alcohol Use Standard Drinks/Week Comments No 0 (1 standard drink = 0.6 oz pur e alcohol) Sex and Gender Information Value Date Recorded Sex Assigned at Not on file Legal Sex Male 11:50 PM [employer] Gender Identity Not on file Sexual Orientation [...] COVID: Suspected 10/11/2023 10/11/2023 10/11/2023 8:12 AM [employer] COVID: Suspected 12/31/2024 12/31/2024 01/01/2025 12:13 AM [employer] documented as of this encounter Care Teams Hydrogeologist Relationship Specialty Start Date End Date Hakan Mccormick MD PCP - General 02/09/17 06/11/24 Mahesh Llamas MD [address] [place] [address] PCP - General Family Medicine 06/12/24 Jeannie Noyola RN [address] [facility] [address] [place] [address] Field Rep 07/07/19 07/20/19 Sunita Irizarry RN [address] [facility] [address] [place] [address] Field Rep 07/09/19 09/04/19 Kellee Cedillo RN [address] [id number] Field Rep 12/05/21 12/29/21 Maria Esther Montemayor, OT Occupational Therapist Occupational Therapy 09/21/22 documented as of this encounter
--- OUTSIDE RECORDS SUMMARY | 2025-07-23 13:57 | XMS_ITS | Clinical Summary ---
Author Organization [facility] Address [address] [place] [address] Care Team Providers Care Telephone Exchange Operator Name Role Phone Maria Esther Montemayor OT Unavailable Unavailable Mahesh Llamas MD Primary Care Provider [phone] Allergies Active Allergy Reactions Criticality Noted Date Comments Iodinated Contrast Media Nausea & Vomiting,Other (See comments) High 05/01/2011 Vomiting and chest pain Iodine Other (See comments) Reaction: Unknown, Ioversol Other (See comments) Reaction: Unknown, Sulfa Unknown 05/03/2025 Medications aspirin 81 mg enteric coated tablet Take 1 tablet (81 mg total) by mouth daily Active vitamin B49-fnfom acid 0.5-1 mg tablet Take 1 tablet [...] 10/11/2023 Assessment & Plan (10/11/2023 3:31 PM GROCERY CLERK): Acute problem- this is a new problem [...] 06/21/2020 Assessment & Plan (01/18/2024 11:06 AM GROCERY CLERK): Check thyroid studies again due to anemia and call back for results Assessment & Plan (07/10/2023 2:32 PM CDT): Remains asymptomatic and will check TSH and free T4 in 1 year. Assessment & Plan (01/08/2023 1:39 PM GROCERY CLERK): Check TSH and FT4 before next visit. [...] mg Assessment & Plan (01/18/2024 11:06 AM GROCERY CLERK): Rate controlled on carvedilol and will continue anticoagulation based on geography professor's recommendations. Assessment & Plan (07/10/2023 2:30 PM CDT): Rate controlled on carvedilol and will continue anticoagulation per his geography professor recommendations. Assessment & Plan (07/10/2022 1:40 PM CDT): Rate controlled will continue anticoagulation per his geography professor recommendations Assessment & Plan (10/24/2021 2:41 PM GROCERY CLERK): Rate controlled on carvedilol and will continue anticoagulation per his geography professor. Assessment & Plan (07/07/2021 1:42 PM CDT): Rate controlled on beta-robyn will continue Xarelto for anticoagulation. Assessment & Plan (01/06/2021 7:51 PM GROCERY CLERK): Rate controlled on beta-robyn and continue Xarelto for anticoagulation. Assessment & Plan (10/29/2020 2:25 PM GROCERY CLERK): Rate controlled on his beta-robyn and will continue Xarelto for anticoagulation. Assessment & Plan (06/21/2020 10:17 AM CDT): Continue Xarelto for anticoagulation through his geography professor office and rate is currently well controlled on his metoprolol Chronic left shoulder pain 11/24/2019 Assessment & Plan (11/24/2019 12:02 PM GROCERY CLERK): X-rays show osteoarthritis. Examination shows possible impingement syndrome. Orthopedic referral for further evaluation. SSS (sick sinus syndrome) 11/14/2019 Assessment & Plan (11/14/2019 1:52 PM GROCERY CLERK): Last interrogation showed 9% A pace, 12% V pace frequent PAF with burden 40%, MARIO 7.3 years Lymphedema due to venous insufficiency 9 Overview (06/21/2020): Discharged from [facility]; pump + velcro compression bandages. 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 for possible lower extremity infection Assessment & Plan (01/18/2024 11:06 AM GROCERY CLERK): Encouraged strict compliance with his wrappings and [...] pump. Assessment & Plan (10/24/2021 2:41 PM GROCERY CLERK): He has some skin breakdown on his left lower extremity and will refer to [facility] wound care center for further evaluation. He may need to go back to [facility] for chronic management of his lymphedema. Assessment & Plan (07/07/2021 1:42 PM CDT): Continue pump and Velcro compression bandages and return to [facility] as needed. Assessment & Plan (06/21/2020 10:17 AM CDT): He should be more compliant with his pump and Velcro compression bandages. Assessment & Plan (11/24/2019 12:01 PM GROCERY CLERK): Patient should follow-up with the lymphedema clinic and follow their directions. Assessment & Plan (07/24/2019 5:01 PM CDT): Referral to [facility] lymphedema clinic. Will see him back in about a month for his missed follow-up examination with lab sooner if needed. Basal cell carcinoma (BCC) of right upper arm Overview (05/19/2019): Added automatically from request for surgery [id number] Skin lesion of right upper extremity 05/06/2019 Ventral hernia without obstruction or gangrene 0 04/24/2019 Overview (04/24/2019): Added automatically from request for surgery [id number] Assessment & Plan (07/24/2019 5:00 PM CDT): [...] 03/21/2018 Assessment & Plan (09/18/2024 7:55 PM GROCERY CLERK): Wound care as discussed. Start on Augmentin b.i.d. times 10 days. Assessment & Plan (01/18/2024 11:06 AM GROCERY CLERK): Cephalexin for 10 days and call back if no improvement. Assessment & Plan (11/24/2019 12:02 PM GROCERY CLERK): Resolved after the addition of Bactrim. Return to clinic for recurrent signs of infection. Follow-up with the lymphedema clinic as they direct. Assessment & Plan (11/10/2019 5:45 PM GROCERY CLERK): Significantly improved since last visit. Patient instructed [...] evaluation. Assessment & Plan (11/10/2019 4:57 PM GROCERY CLERK): Will add Bactrim 800-160 mg per tab [...] discussed. Assessment & Plan (10/29/2019 2:43 PM GROCERY CLERK): Recommend in doxycycline 100 mg b.i.d. Times 10 days and follow-up in 1 week. In addition instructed on use of xymr-tlw-cdaxwgj probiotics as well as yogurt to help [...] days follow up here in a week. Nole-xfm-juosuaa probiotics or Togolese yogurt to assist GI upset was discussed. [...] recommended. Assessment & Plan (10/22/2018 2:07 PM GROCERY CLERK): Patient is encouraged to lose weight with [...] associated with continued morbid obesity discussed. Thrombocytopenia ([facility]/HCC) 02/05/2018 Assessment & Plan (09/18/2024 7:55 PM GROCERY CLERK): Followed by hematology. Assessment & Plan (01/18/2024 11:05 AM GROCERY CLERK): Platelet level back to baseline. Currently asymptomatic. Assessment & Plan (07/10/2023 2:33 PM CDT): Asymptomatic. Just below his chronic baseline will check again in 6 months and he should call back if bruising or bleeding develops. Hematology referral if worsens. Assessment & Plan (07/10/2022 1:39 PM CDT): Mild chronic stable and asymptomatic. Check again 1 year. Assessment & Plan (11/30/2021 5:51 PM GROCERY CLERK): Chronic, stable. SCDs for DVT ppx. Assessment & Plan (10/24/2021 2:40 PM GROCERY CLERK): Chronic mild stable and asymptomatic Assessment & [...] 08/02/2017 Assessment & Plan (01/18/2024 11:07 AM GROCERY CLERK): Recheck B12 level along with iron panel, [...] year. Assessment & Plan (01/06/2021 7:51 PM GROCERY CLERK): Continue B12 supplementation. Assessment & Plan (06/21/2020 [...] medication. Assessment & Plan (01/06/2021 7:51 PM GROCERY CLERK): Remains stable without medication. Assessment & Plan (06/21/2020 10:17 AM CDT): Remains stable without medication. Assessment & Plan (08/25/2019 3:19 PM CDT): Remains stable without medication. Assessment & Plan (03/05/2019 9:51 AM CDT): Stable without medication. Assessment & Plan (10/22/2018 2:06 PM GROCERY CLERK): Stable without medication. Assessment & Plan (07/15/2018 9:35 PM CDT): Declines need for medication Assessment & Plan (02/05/2018 5:51 PM CDT): Stable without medication. Edema of both legs 08/02/2017 Assessment & Plan (11/30/2021 5:50 PM GROCERY CLERK): Secondary to lynphedema. Chronic, stable. ProBNP is normal. Follows with Dr. Baeza as outpatient. Assessment & Plan (10/29/2020 2:25 PM GROCERY CLERK): He knows to be more compliant with [...] level or above, find some sequential stockings mbol-rua-pefaawd to see if that can assist with [...] NOS Assessment & Plan (09/18/2024 7:54 PM GROCERY CLERK): BP at goal 110/70. Continue present medications. Assessment & Plan (06/25/2024 12:57 PM CDT): Stable, well controlled, blood pressure goal; no chest pain or pressure; no headaches Continue carvedilol 6.25 mg daily Assessment & Plan (01/18/2024 11:05 AM GROCERY CLERK): Blood pressure well controlled on carvedilol, chlorthalidone, lisinopril Assessment & Plan (07/10/2023 2:31 PM CDT): Blood pressure well controlled on carvedilol, chlorthalidone, lisinopril Assessment & Plan (01/08/2023 1:39 PM GROCERY CLERK): Blood pressure well controlled on chlorthalidone, lisinopril Assessment & Plan (07/10/2022 1:40 PM CDT): Well controlled on the current regimen. Avoidance of salt, proper body weight, and routine exercise recommended. Assessment & Plan (02/23/2022 1:55 PM CDT): Well controlled on the current regimen. Avoidance of salt, proper body weight, and routine exercise recommended. Assessment & Plan (12/09/2021 10:30 AM GROCERY CLERK): Well controlled on the current regimen. Avoidance of salt, proper body weight, and routine exercise recommended. Assessment & Plan (11/30/2021 5:49 PM GROCERY CLERK): Home meds resumed, BP is well controlled. Will hold beta robyn as stress test planned for tomorrow. Continue to monitor. Assessment & Plan (10/24/2021 2:40 PM GROCERY CLERK): Well controlled on the current regimen. Avoidance of salt, proper body weight, and routine exercise recommended. Consider restarting low-dose lisinopril if micro and creatinine ratio raise in the future. Assessment & Plan (07/07/2021 1:41 PM CDT): Well controlled on the current regimen. Avoidance of salt, proper body weight, and routine exercise recommended. Assessment & Plan (01/06/2021 7:51 PM GROCERY CLERK): Well controlled on the current regimen. Avoidance of salt, proper body weight, and routine exercise recommended. Assessment & Plan (10/29/2020 2:25 PM GROCERY CLERK): Continue holding lisinopril. Call back if blood pressures elevate consistently near 140/90 so we can restart lisinopril 5 mg daily. He is to check with geography professor regarding which beta-robyn he should be on. We may need to cut down his chlorthalidone or furosemide in the future. Assessment & Plan (06/21/2020 10:17 AM CDT): Well controlled on the current regimen. Avoidance of salt, proper body weight, and routine exercise recommended. Assessment & Plan (11/24/2019 11:58 AM GROCERY CLERK): Well controlled on the current regimen. Avoidance [...] recommended. Assessment & Plan (10/22/2018 2:06 PM GROCERY CLERK): Well controlled on the current regimen. Avoidance [...] NEC/NOS Assessment & Plan (01/18/2024 11:05 AM GROCERY CLERK): Well controlled on current therapy and will check a lipid panel and LFTs in 6 months. Assessment & Plan (07/10/2023 2:31 PM CDT): Well controlled on current therapy and will check a lipid panel and LFTs in 6 months. Assessment & Plan (01/08/2023 1:39 PM GROCERY CLERK): Well controlled on current therapy and will [...] months. Assessment & Plan (12/09/2021 10:31 AM GROCERY CLERK): Continue his atorvastatin check lipids and LFTs before next visit. Assessment & Plan (10/24/2021 2:40 PM GROCERY CLERK): Well controlled on current therapy and will check a lipid panel and LFTs in 6 months. Assessment & Plan (07/07/2021 1:41 PM CDT): Well controlled on current therapy and will check a lipid panel and LFTs in 6 months. Assessment & Plan (01/06/2021 7:51 PM GROCERY CLERK): Well controlled on current therapy and will [...] months. Assessment & Plan (10/22/2018 2:06 PM GROCERY CLERK): Well controlled on current therapy and will [...] and LFTs in 6 months. Atherosclerosis of [place] co ronary artery of [place] heart with stable angina pectoris 03/28/2014 Overview (02/15/2017): COR ATH UNSP VSL NTV/GFT Assessment & Plan (06/25/2024 12:56 PM CDT): Stable, well controlled, catheterization in 2021 Continue ASA 81 mg daily, atorvastatin 40 mg daily, carvedilol 6.25 mg b.i.d., Imdur 60 mg daily Assessment & Plan (01/18/2024 11:04 AM GROCERY CLERK): Continue continue current medication regimen follow up with his geography professor as they direct Assessment & Plan (07/10/2023 2:30 PM CDT): Continue current medication regimen and follow up with his geography professor as they direct Assessment & Plan (07/10/2022 1:40 PM CDT): Continue current medication regimen follow up with geography professor as they direct Assessment & Plan (12/09/2021 10:30 AM GROCERY CLERK): Recent catheterization without need for intervention. Continue current medication regimen and follow up with geography professor as they direct. Assessment & Plan (07/07/2021 1:41 PM CDT): Continue current medication regimen and follow up with geography professor as they direct. Assessment & Plan (01/06/2021 7:52 PM GROCERY CLERK): Continue current medication regimen and follow up with geography professor as they direct. Assessment & Plan (06/21/2020 10:18 AM CDT): Continue current medication regimen follow up with geography professor as they direct. Assessment & Plan (11/14/2019 1:50 PM GROCERY CLERK): Pt currently denies any chest pain or shortness of breath Assessment & Plan (08/25/2019 3:19 PM CDT): Continue aspirin, atorvastatin, carvedilol, isosorbide mononitrate, lisinopril, Xarelto and follow up with geography professor as they direct. Assessment & Plan (05/04/2019 2:10 PM CDT): Continue aspirin, atorvastatin, carvedilol, isosorbide mononitrate, lisinopril and follow up with geography professor as they direct. I Have asked him [...] nitroglycerin p.r.n. and follow up with his geography professor as they direct Assessment & Plan (08/02/2017 2:51 PM CDT): Continue current medication regimen and follow up with geography professor as he directs. Degeneration of intervertebral disc of cervical region 03/28/2014 Overview (02/15/2017): DDD (degenerative disc disease), cervical History of prostate cancer 03/28/2014 Overview (02/05/2018): Davinci prostatectomy [address] saucedo. Assessment & Plan (01/18/2024 11:05 AM GROCERY CLERK): Recommend PSA checks once yearly. Assessment & Plan (07/10/2023 2:31 PM CDT): PSA remains undetectable and will check again 1 year. Assessment & Plan (10/24/2021 2:40 PM GROCERY CLERK): PSA undetectable. Assessment & Plan (07/07/2021 1:41 [...] weekly Assessment & Plan (01/18/2024 11:07 AM GROCERY CLERK): A1c, LDL, and blood pressure currently well [...] abnormal. Assessment & Plan (01/08/2023 1:38 PM GROCERY CLERK): A1c, LDL, and blood pressure currently well [...] abnormal. Assessment & Plan (11/30/2021 5:48 PM GROCERY CLERK): On Metformin and Trulicity at home. Here initiated on insulin basal bolus regimen per hospital protocol. Monitor accuchecks on SSI, titrate regimen as needed. Assessment & Plan (10/24/2021 2:40 PM GROCERY CLERK): A1c, LDL, and blood pressure currently well controlled on current regimen. Check a yearly diabetic eye exam and blood sugars daily. Monofilament testing is intact. Assessment & Plan (07/07/2021 1:41 PM CDT): A1c up trending and we discussed importance of diet exercise and weight loss. Continue his metformin Trulicity and repeat A1c before next visit. Assessment & Plan (01/06/2021 7:51 PM GROCERY CLERK): A1c, LDL, and blood pressure currently well [...] . Assessment & Plan (10/22/2018 2:06 PM GROCERY CLERK): A1c, LDL, and blood pressure currently well [...] 05/05/2025 Assessment & Plan (12/09/2021 10:30 AM GROCERY CLERK): No recurrences since discharge. Unremarkable coronary catheterization. Follow up Cardiology as they direct. Assessment & Plan (11/30/2021 5:47 PM GROCERY CLERK): Pt with significant cardiac history, presenting with [...] Description 05/27/2025 8:15 AM CDT Ancillary Procedure [place] [facility] [address] [place] [id number] SSS (sick sinus syndrome) (HCC); Cardiac pacemaker in situ; Paroxysmal atrial fibrillation (HCC) 05/08/2025 2:54 PM CDT - 05/08/2025 11:59 PM CDT Hospital Encounter [facility] Emergency, Room R Discharge Disposition: Discharge to home or self care 05/03/2025 8:53 AM CDT - 05/08/2025 2:44 PM CDT Hospital Encounter [facility] [address] [place] [address] Bob Albert MD Nikolic, Jelena, MD Kheirkhahan, [...] - 05/03/2025 11:59 PM CDT Hospital Encounter [facility] Emergency, Room R Discharge Disposition: Discharge to home or self care from Last 3 Months Immunizations Immunization Administration [...] skin lesion removed head and nose 04/2011: [facility] OTHER SURGICAL HISTORY R Ventricular Thrombus: 6 [...] MOHS SURGERY 03/12/2024 - 04/11/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; 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 Medical History Medical History Date Comments Actinic keratosis Actinic Kerato sis Hx Other Medical -Dermatologis t Hx Other Medical 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 Never 05/04/2025 Do you belong to any clubs o r organizations such as yarsani groups, unions, fraternal or athletic groups, or [...] place to sleep or slept in a [place] (including now)? No 03/04/2024 Housing Stability Vital Sign Answer Damien e Recorded In the last 12 months, was t here a time when you were not able to pay the mortgage or rent on time? No 05/04/2025 In the past 12 months, how m any times have you moved where you were living? 0 05/04/2025 At any time in the past 12 m [facility], were you homeless or living in a [place] (including now)? No 05/04/2025 Personal Safety Answer [...] on file Legal Sex Male 11:50 PM GROCERY CLERK Gender Identity Not on file Sexual Orientation [...] 07/10/2024 07/10/2023, 06/13, 07/07/2021, Additional history exists Albumin Creatinine Ratio, Urine 01/09/2025 01/10/2024, 06/28/2023, 12/25/2022, Additional history exists Colon Cancer Screening-Colonoscopy 01/15/2025 01/15/2015, 01/15/2015, 01/15/2015 Depression Screening 01/17/2025 01/18/2024, 10/11/2023, 09/14/2023, Additional history exists Foot Exam 01/17/2025 01/18/2024, 12/14, 07/10/2022, Additional history exists Covid-19 Vaccine ( season) 2025 02/26/2021, 01/26/2021 Influenza Vaccine (#1) 2025 , 09/14/2023, 09/25/2022, Additional history exists Prostate Cancer Screening-PSA 09/09/2025 09/09/2024, 06/28/2023, 10/05/2021, Additional history exists Zoster Vaccine (1 of 2) 09/17/2025 Post poned from 1994 (Patient declined, but will receive in the future) Dilated Eye Exam 10/13/2025 10/13/2024, , 04/19/2020, Additional history exists Hemoglobin A1C 12/10/2025 06/09/2025, 0703/2025, 09/09/2024, Additional history exists Fall Risk Assessment 05/08/2026 05/08/2025, 06/12/2024, 01/18/2024, Additional history exists eGFR 05/08/2026 05/08/2025, 04/13, 05/06/2025, Additional history exists Lipid Panel 05/26/2026 05/26/2025, 08/13, 01/10/2024, Additional history exists Pneumococcal vaccine 65+ Completed 016, 09/02/2014, 08/06/2014, Additional history exists Hepatitis B Screening Completed 09/09/2024 Medical Devices Implanted Type Area Metal Sprayer Production Device Identifier Shelf Expiration Date Model / Serial / Lot Pacemaker Pacemaker Left: Chest Stent Stent N/A: Heart Description:Multiple [employer]/C R Bard [id number] Ventralight St Sepra 8x6in Uncoated Monofilament Lightweight - [id number] Implanted:Qty: 1 on 06/30/2019 by Hany Pereira MD at [facility] N/A: Abdomen [employer] 09/08/2020 [id number] / / [id number] Daig Uz[employer] [id number] Angio-Seal Evolution 6fr .035in Guidewire Bypass Tube Suture - [id number] Implanted:Qty: 1 on 12/02/2021 by Virgen Vallecillo MD at [facility] [employer] 08/11/2022 [id number] / / Procedures Procedure Name Priority Date/Time [...] EYE EXAM Routine 10/13/2024 2:0 6 PM GROCERY CLERK HEMOGLOBIN A1C Routine 09/09/2024 10:07 AM CDT Type 2 diabetes mellitus with diabetic polyneuropathy, without long-term current use of insulin (HCC) LIPID PANEL Routine 09/09/2024 10:07 AM CDT Hypertension, essential PSA SCREEN Routine 09/09/2024 10:07 AM CDT Screening PSA (prostate specific antigen) ALBUMIN CREATININE RATIO, URINE Routine 01/10/2024 8:58 AM GROCERY CLERK Hypertension, essential Mixed hyperlipidemia Type 2 diabetes [...] the original result were not included. 05/27/2025 [employer] quarterly remote device check NOTE The following shows snippets from the complete quarterly report. The complete report in its entirety is attached to this Result Text in Retail Financial Analyst Last in-office check: October 2024 Next in-office appointment: August [address] 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% No events this monitoring period Device [...] us Ivy Johnson MD [facility] [place] OCEDURES Final Result * POCT glucose (05/08/2025 11:48 AM CDT) Glucose, POC 135 70 - 199 mg/dL Blood 05/08/2025 11:4 8 AM CDT 05/08/2025 11:48 AM CDT us Roseann Cui DO LAB POCT ORDERABLES - DE VICE Final Result [facility] ([place]) 1 [facility] [place] [address] * POCT glucose (05/08/2025 7:54 AM CDT) Glucose, POC 107 70 - 199 mg/dL Blood 05/08/2025 7:54 AM CDT 05/08/2025 7:54 AM CDT Roseann Ayal Basilia DO LAB POCT ORDERABLES - DE VICE Final Result [facility] ([place]) 1 [facility] [place] [address] * eGFR (05/08/2025 4:54 AM CDT) Pathologist [facility] eGFR 88 >=60 mL/min/1. 73 m2 Comment: [...] BLOOD ORDERABLES Fin al Result [facility] ([place]) 1 [facility] [place] [address] * Differential, auto (05/08/2025 4:54 AM CDT) [...] Neutrophil pct 56.3 % [facility] ([place]) Comment: Interpretive [...] Fin al Result [facility] ([place]) 1 [facility] [place] [address] * (ABNORMAL) CBC with auto differential (05/08/2025 [...] Fin al Result [facility]AN C[facility] ([place]) 1 [facility] [place] [address] * Phosphorus (05/08/2025 4:54 AM CDT) Phosphorus, pl 2.5 2.3 - 4.5 mg/dL Blood 05/08/2025 4:54 AM CDT 05/08/2025 5:15 AM CDT Roseann Cui DO LAB BLOOD ORDERABLES Fin al Result [facility] ([place]) 1 [place] [address] * Magnesium (05/08/2025 4:54 AM CDT) Magnesium 1.8 1.4 - 2.5 mg/dL Blood 05/08/2025 4:54 AM CDT 05/08/2025 5:15 AM CDT Roseann Cui LAB BLOOD ORDERABLES Fin al Result Performing Organization Address [facility] de Phone Number [facility]OHAN CUE[facility] ([place]) 1 [place] [address] * (ABNORMAL) Comprehensive metabolic panel (05/08/2025 4:54 AM CDT) Sodium 137 135 - 145 mmol/L Potassium, pl 3.7 3.3 - 4.9 mmol/L [facility] ([place]) Chloride 105 97 - 110 mmol/L [facility] ([place]) CO2 24 22 - 32 mmol/L [facility] ([place]) Anion gap 8 2 - 15 mmol/L [facility] ([place]) BUN 15 6 - 25 mg/dL [facility] ([place]) Creatinine 0.84 0.80 - 1.30 [...] Fin al Result [facility]AN C[facility] ([place]) 1 [facility] [place] [address] * POCT glucose (05/08/2025 2:31 AM CDT) Glucose, POC 120 70 - 199 mg/dL Blood 05/08/2025 2:31 AM CDT 05/08/2025 2:31 AM CDT Roseann Cui DO LAB POCT ORDERABLES - DE VICE Final Result [facility] ([place]) 1 [facility] [place] [address] * POCT glucose (05/07/2025 9:02 PM CDT) Glucose, POC 139 70 - 199 mg/dL Blood 05/07/2025 9:02 PM CDT 05/07/2025 9:02 PM CDT Roseann Cui DO LAB POCT ORDERABLES - DE VICE Final Result [facility] ([place]) 1 [facility] [place] [address] * POCT glucose (05/07/2025 4:53 PM CDT) Glucose, POC 115 70 - 199 mg/dL Blood 05/07/2025 4:53 PM CDT 05/07/2025 4:53 PM CDT Roseann Cui DO LAB POCT ORDERABLES - DE VICE Final Result [facility] ([place]) 1 [facility] [place] [address] * POCT glucose (05/07/2025 11:50 AM CDT) Glucose, POC 169 70 - 199 mg/dL Blood 05/07/2025 11:5 0 AM CDT 05/07/2025 11:50 AM CDT Roseann Cui DO LAB POCT ORDERABLES - DE VICE Final Result ROHAN CUEVAS ([place]) 1 [facility] [place] [address] * Differential, auto (05/07/2025 9:38 AM CDT) Neutrophil abs 2.13 1.50 - 6.50 K/cumm Imm gran abs 0.04 0.00 - 0.10 K/cumm [facility] ([place]) Lymphocyte abs 0.86 0.80 - 3.30 K/cumm [facility] ([place]) Monocyte abs 0.40 0.20 - 0.80 K/cumm [facility] ([place]) Eosinophil abs 0.17 0.00 - 0.50 K/cumm [facility] ([place]) Basophil abs 0.01 0.00 - 0.10 K/cumm [...] revised on 2018. Monocyte pct 11.1 % [facility] ([place]) Comment: Interpretive Data [...] DO LAB BLOOD ORDERABLES Fin al Result CORRINAMARY CUEVAS ([place]) 1 [facility] [place] [address] * (ABNORMAL) CBC with auto differential (05/07/2025 [...] 31.4 27.1 - 33.3 pg [facility] ([place]) MCHC 34.3 32.3 - 35.7 g/dL CERNER [...] Fin al Result ROHAN CUEVAS ([place]) 1 [facility] [place] [address] * POCT glucose (05/07/2025 7:37 AM CDT) Glucose, POC 108 70 - 199 mg/dL Blood 05/07/2025 7:37 AM CDT 05/07/2025 7:37 AM CDT Roseann Cui DO LAB POCT ORDERABLES - DE VICE Final Result ROHAN CUEVAS ([place]) 1 [facility] [place] [address] * (ABNORMAL) Lactate (05/07/2025 5:13 AM CDT) Lactate 2.1(H) 0.7 - 2.0 mmol/L Blood 05/07/2025 5:13 AM CDT 05/07/2025 5:29 AM CDT us Mi Colon MD LAB BLOOD ORDERABLES Fi nal Result Performing Organization Address City/[facility]/ZIP Co de Phone Number [facility] [place]) 1 [facility] [place] [address] * eGFR (05/07/2025 5:13 AM CDT) eGFR [...] BLOOD ORDERABLES Fin al Result ROHAN CUEVAS [place]) 1 [place] [address] * Phosphorus (05/07/2025 5:13 AM CDT) Pathologist [facility] Phosphorus, pl 2.4 2.3 - 4.5 mg/dL Blood 05/07/2025 5:13 AM CDT 05/07/2025 5:40 AM CDT Roseann Cui DO LAB BLOOD ORDERABLES Fin al Result ROHAN CUEVAS ([place]) 1 [place] [address] * Magnesium (05/07/2025 5:13 AM CDT) [facility] Magnesium 1.7 1.4 - 2.5 mg/dL Blood 05/07/2025 5:13 AM CDT 05/07/2025 5:40 AM CDT Roseann Cui DO LAB BLOOD ORDERABLES Fin al Result ROHAN CUEVAS ([place]) 1 [place] [address] * (ABNORMAL) Comprehensive metabolic panel (05/07/2025 5:13 AM CDT) Pathologist [facility] Sodium 139 135 - 145 mmol/L Potassium, pl 3.9 3.3 - 4.9 mmol/L [facility] ([place]) Chloride 106 97 - 110 mmol/L [facility] ([place]) CO2 21(L) 22 - 32 mmol/L [facility] ([place]) Anion gap 11 2 - 15 mmol/L [facility] ([place]) BUN 19 6 - 25 mg/dL [facility] ([place]) Creatinine 0.81 0.80 - 1.30 mg/dL [facility] ([place]) Glucose 112 70 - 199 mg/dL [facility] ([place]) Comment: Interpretive Data Fasting glucose >/= [...] Fin al Result ROHAN CUEVAS ([place]) 1 [facility] [place] [address] * POCT glucose (05/07/2025 2:00 AM CDT) Glucose, POC 130 70 - 199 mg/dL Blood 05/07/2025 2:00 AM CDT 05/07/2025 2:00 AM CDT Roseann Cui DO LAB POCT ORDERABLES - DE VICE Final Result ROHAN CUEVSA ([place]) 1 [facility] [place] [address] * POCT glucose (05/06/2025 7:53 PM CDT) Glucose, POC 108 70 - 199 mg/dL Blood 05/06/2025 7:53 PM CDT 05/06/2025 7:53 PM CDT Roseann Ayla Cui DO LAB POCT ORDERABLES - DE VICE Final Result Performing Organization Address City/[facility]/ZIP Co de Phone Number ROHAN CUEVAS ([place]) 1 [facility] [place] [address] * POCT glucose (05/06/2025 4:43 PM CDT) Glucose, POC 113 70 - 199 mg/dL Blood 05/06/2025 4:43 PM CDT 05/06/2025 4:43 PM CDT Roseann Ayla Cui DO LAB POCT ORDERABLES - DE VICE Final Result Performing Organization Address [facility] Co de Phone Number [facility] ([place]) 1 [facility] [place] [address] * POCT glucose (05/06/2025 11:29 AM CDT) Glucose, POC 149 70 - 199 mg/dL Blood 05/06/2025 11:2 9 AM CDT 05/06/2025 11:29 AM CDT Roseann Ayla Cui DO LAB POCT ORDERABLES - DE VICE Final Result Performing Organization Address City/[facility]/ZIP Co de Phone Number [facility] ([place]) 1 [facility] [place] [address] * POCT glucose (05/06/2025 7:51 AM CDT) Glucose, POC 117 70 - 199 mg/dL Blood 05/06/2025 7:51 AM CDT 05/06/2025 7:51 AM CDT Roseann Cui DO LAB POCT ORDERABLES - DE VICE Final Result ROHAN KruseWO[place]) 1 [facility] [place] [address] * eGFR (05/06/2025 7:31 AM CDT) eGFR [...] LAB BLOOD ORDERABLES Fin al Result ROHAN DARNELL) 1 [facility] [place] [address] * (ABNORMAL) Differential, auto (05/06/2025 7:31 AM [...] Neutrophil pct 83.6 % [facility] ([place]) Comment: Interpretive Data Percent cell count reference [...] Lymphocyte pct 8.5 % [facility] ([place]) Comment: Interpretive Data Percent cell count reference ranges are not reported, since discordance with absolute values may lead to misinterpretation of CBC data. Current Interpretive Data was last revised on 2018. Monocyte pct 6.2 % [facility] ([place]) Comment: Interpretive Data Percent cell count reference ranges are not reported, since discordance with absolute values may lead to misinterpretation of CBC data. Current Interpretive Data was last revised on 2018. Eosinophil pct 0.4 % [facility] ([place]) Comment: Interpretive Data Percent cell count reference ranges are not reported, since discordance with absolute values may lead to misinterpretation of CBC data. Current Interpretive Data was last revised on 2018. Basophil pct 0.1 % [facility] ([place]) Comment: Interpretive Data Percent cell count reference ranges are not reported, since discordance with absolute values may lead to misinterpretation of CBC data. Current Interpretive Data was last revised on 2018. Blood 05/06/2025 7:31 AM CDT 05/06/2025 8:17 AM CDT us Roseann Cui DO LAB BLOOD ORDERABLES Fin al Result ROHAN [facility] ([place]) 1 [facility] [place] [address] * (ABNORMAL) CBC with auto differential (05/06/2025 [...] Fin al Result [facility] ([place]) 1 [facility] [place] [address] * (ABNORMAL) Phosphorus (05/06/2025 7:31 AM CDT) Phosphorus, pl 2.2(L) 2.3 - 4.5 mg/dL Blood 05/06/2025 7:31 AM CDT 05/06/2025 8:17 AM CDT Roseann Cui DO LAB BLOOD ORDERABLES Fin al Result ROHAN CUEVAS ([place]) 1 [facility] [place] [address] * Magnesium (05/06/2025 7:31 AM CDT) Magnesium 1.8 1.4 - 2.5 mg/dL Blood 05/06/2025 7:31 AM CDT 05/06/2025 8:17 AM CDT Roseann Aguila Zeto LAB BLOOD ORDERABLES Fin al Result Performing Organization Address [facility] de Phone Number ROHAN CUEVAS ([place]) 1 [facility] [place] [address] * (ABNORMAL) Comprehensive metabolic panel (05/06/2025 7:31 [...] ([place]) AST 39 10 - 50 Units/L [facility] Comment:Slightly Hemolyzed S pecimen Blood 05/06/2025 7:31 AM CDT 05/06/2025 8:17 AM CDT Roseann Cui DO LAB BLOOD ORDERABLES Fin al Result Performing Organization Address City/[facility]/ZIP Co de Phone Number ROHAN CUEVAS ([place]) 1 [facility] [place] [address] * POCT glucose (05/06/2025 2:20 AM CDT) Glucose, POC 159 70 - 199 mg/dL Blood 05/06/2025 2:20 AM CDT 05/06/2025 2:20 AM CDT Roseann Cui DO LAB POCT ORDERABLES - DE VICE Final Result Performing Organization Address City/[facility]/ZIP Co de Phone Number ROHAN CUEVAS ([place]) 1 [facility] [place] [address] * POCT glucose (05/05/2025 8:46 PM CDT) Glucose, POC 198 70 - 199 mg/dL Blood 05/05/2025 8:46 PM CDT 05/05/2025 8:46 PM CDT Roseann Cui DO LAB POCT ORDERABLES - DE VICE Final Result Performing Organization Address City/[facility]/ZIP Co de Phone Number ROHAN CUEVAS ([place]) 1 [facility] [place] [address] * (ABNORMAL) POCT glucose (05/05/2025 4:35 PM CDT) Glucose, POC 208(H) 70 - 199 mg/dL Blood 05/05/2025 4:35 PM CDT 05/05/2025 4:35 PM CDT Roseann Cui DO LAB POCT ORDERABLES - DE VICE Final Result ROHAN CUEVAS ([place]) 1 [place] [address] * (ABNORMAL) Sepsis Lactate w/ Reflex (05/05/2025 2:32 PM CDT) Sepsis Lactate 2.8(H) 0.7 - 2.0 mmol/L Blood 05/05/2025 2:32 PM CDT 05/05/2025 2:35 PM CDT Roseann Cui DO LAB BLOOD ORDERABLES Fin al Result ROHAN CUEVAS ([place]) 1 [facility] [place] [address] * (ABNORMAL) Sepsis Lactate w/ Reflex (05/05/2025 11:55 AM CDT) Sepsis Lactate 2.2(H) 0.7 - 2.0 mmol/L Blood 05/05/2025 11:5 5 AM CDT 05/05/2025 12:00 PM CDT Roseann Cui DO LAB BLOOD ORDERABLES Fin al Result ROHAN CUEVAS ([place]) 1 [facility] [place] [address] * (ABNORMAL) POCT glucose (05/05/2025 11:32 AM CDT) Glucose, POC 248(H) 70 - 199 mg/dL Blood 05/05/2025 11:3 2 AM CDT 05/05/2025 11:32 AM CDT Roseann Cui DO LAB POCT ORDERABLES - DE VICE Final Result ROHAN CUEVAS ([place]) 1 [facility] [place] [address] * (ABNORMAL) Sepsis Lactate w/ Reflex (05/05/2025 8:56 AM CDT) Pathologist [facility] Sepsis Lactate 2.3(H) 0.7 - 2.0 mmol/L Blood 05/05/2025 8:56 AM CDT 05/05/2025 9:00 AM CDT Roseann Cui DO LAB BLOOD ORDERABLES Fin al Result [facility] ([place]) 1 [facility] [place] [address] * eGFR (05/05/2025 8:56 AM CDT) Pathologist [facility] eGFR >90 >=60 mL/min/1. 73 m2 [...] LAB BLOOD ORDERABLES Fin al Result ROHAN [facility] ([place]) 1 [facility] [place] [address] * (ABNORMAL) Differential, auto (05/05/2025 8:56 AM CDT) Neutrophil abs 8.73(H) 1.50 - 6.50 K/cumm Imm gran abs 0.12(H) 0.00 - 0.10 K/cumm [facility] ([place]) Lymphocyte abs 0.55(L) 0.80 - 3.30 K/cumm [facility] ([place]) Monocyte abs 0.60 0.20 - 0.80 K/cumm [facility] ([place]) Eosinophil abs 0.00 0.00 - 0.50 K/cumm [facility] ([place]) Basophil abs 0.01 0.00 - 0.10 K/cumm [facility] ([place]) Neutrophil pct 87.2 % [facility] ([place]) Comment: Interpretive Data Percent cell count reference [...] 2018. Monocyte pct 6.0 % [facility] ([place]) Comment: Interpretive Data Percent cell count reference [...] Fin al Result [facility] ([place]) 1 [facility] [place] [address] * (ABNORMAL) CBC with auto differential (05/05/2025 [...] RDW SD 61.0(H) 35.7 - 48.1 fL [facility] ([place]) NRBC abs 0.00 0.00 - 0.01 K/cumm [facility] ([place]) Blood 05/05/2025 8:56 AM CDT 05/05/2025 9:00 AM CDT [facility] [employer] DO LAB BLOOD ORDERABLES Fin al Result ROHAN CUEVAS ([place]) 1 [facility] [place] [address] * (ABNORMAL) Phosphorus (05/05/2025 8:56 AM CDT) Phosphorus, pl 2.2(L) 2.3 - 4.5 mg/dL Blood 05/05/2025 8:56 AM CDT 05/05/2025 9:00 AM CDT [facility] [employer] DO LAB BLOOD ORDERABLES Fin al Result Performing Organization Address City/[facility]/ZIP Co de Phone Number ROHAN [facility] ([place]) 1 [place] [address] * Magnesium (05/05/2025 8:56 AM CDT) Pathologist [facility] Magnesium 1.9 1.4 - 2.5 mg/dL Blood 05/05/2025 8:56 AM CDT 05/05/2025 9:00 AM CDT [facility] [employer] DO LAB BLOOD ORDERABLES Fin al Result Performing Organization Address City/[facility]/ZIP Co de Phone Number ROHAN CUEVAS ([place]) 1 [facility] [place] [address] * (ABNORMAL) Comprehensive metabolic panel (05/05/2025 8:56 AM CDT) Sodium 137 135 - 145 mmol/L Potassium, pl 3.9 3.3 - 4.9 mmol/L [facility] ([place]) Chloride 105 97 - 110 mmol/L [...] Fin al Result [facility] ([place]) 1 [facility] [place] [address] * POCT glucose (05/05/2025 7:32 AM CDT) Glucose, POC 151 70 - 199 mg/dL Blood 05/05/2025 7:32 AM CDT 05/05/2025 7:32 AM CDT Roseann Cui DO LAB POCT ORDERABLES - DE VICE Final Result ROHAN CUEVAS ([place]) 1 [place] [address] * POCT glucose (05/05/2025 2:11 AM CDT) Glucose, POC 177 70 - 199 mg/dL Blood 05/05/2025 2:11 AM CDT 05/05/2025 2:11 AM CDT Chandni Pritchard MD LAB POCT ORDERABLES - DEVICE Final Result Performing Organization Address City/[facility]/ZIP Co de Phone Number ROHAN CUEVAS ([place]) 1 [place] [address] * (ABNORMAL) POCT glucose (05/04/2025 8:06 PM CDT) Glucose, POC 210(H) 70 - 199 mg/dL Blood 05/04/2025 8:06 PM CDT 05/04/2025 8:06 PM CDT Chandni Pritchard MD LAB POCT ORDERABLES - DEVICE Final Result ROHAN CUEVAS ([place]) 1 [place] [address] * POCT glucose (05/04/2025 4:32 PM CDT) Glucose, POC 195 70 - 199 mg/dL Blood 05/04/2025 4:32 PM CDT 05/04/2025 4:32 PM CDT us Chandni Pritchard MD LAB POCT ORDERABLES - DEVICE Final Result Performing Organization Address City/[facility]/ZIP Co de Phone Number ROHAN CUEVAS ([place]) 1 [facility] [place] [address] * Blood culture Blood (05/04/2025 12:40 PM CDT) Report Final Report: No growth Comment:Testing performed by : [facility], 1 [place] [address] Blood 05/04/2025 12:4 0 PM CDT 05/04/2025 [...] performance characteristics have been verified by the [facility] Microbiology Laboratory. For questions about this culture, contact the Microbiology Laboratory at [phone]. Interpretive data was last revised on 24. us Gibson Nolen MD LAB MICROBIOLOGY - GENERAL ORDERABLES Final Result ROHAN CUEVAS ([place]) 1 [facility] [place] [address] * (ABNORMAL) Lactate (05/04/2025 12:29 PM CDT) Lactate 4.1(C) 0.7 - 2.0 mmol/L Comment:Critical result call ed to and read back by Kennedy Youssef ([employer]) on 05/04/2025 12:54:08 CDT to [id number]. Blood 05/04/2025 12:2 9 PM CDT 05/04/2025 12:49 PM CDT us Luca Sifuentes MD LAB BLOOD ORDERABLES Final Resu lt ROHAN CUEVAS ([place]) 1 [facility] [place] [address] * Blood culture Blood (05/04/2025 12:29 PM CDT) Report Final Report: No growth Comment:Testing performed by : [facility], 1 [facility], [place]., [address] Blood 05/04/2025 12:2 9 PM CDT 05/04/2025 [...] performance characteristics have been verified by the [facility] Microbiology Laboratory. For questions about this culture, contact the Microbiology Laboratory at [phone]. Interpretive data was last revised on 24. Gibson Nolen MD LAB MICROBIOLOGY - GENERAL ORDERABLES Final Result Performing Organization Address City/[facility]/ZIP Co de Phone Number ROHAN CUEVAS ([place]) 1 [place] [address] * POCT glucose (05/04/2025 11:14 AM CDT) Glucose, POC 199 70 - 199 mg/dL Blood 05/04/2025 11:1 4 AM CDT 05/04/2025 11:14 AM CDT Luca Sifuentes MD LAB POCT ORDERABLES - DEVICE Fi nal Result Performing Organization Address [facility] Co de Phone Number [facility] ([place]) 1 [place] [address] * POCT glucose (05/04/2025 8:00 AM CDT) Glucose, POC 166 70 - 199 mg/dL Blood 05/04/2025 8:00 AM CDT 05/04/2025 8:00 AM CDT Luca Sifuentes MD LAB POCT ORDERABLES - DEVICE Fi nal Result Performing Organization Address City/[facility] Co de Phone Number ROHAN CUEVAS [place]) 1 [place] [address] * POCT glucose (05/04/2025 5:21 AM CDT) Glucose, POC 195 70 - 199 mg/dL Blood 05/04/2025 5:21 AM CDT 05/04/2025 5:21 AM CDT Luca Sifuentes MD LAB POCT ORDERABLES - DEVICE Fi nal Result Performing Organization Address City/[facility]/ZIP Co de Phone Number ROHAN CUEVAS ([place]) 1 [facility] [place] [address] * eGFR (05/04/2025 3:04 AM CDT) eGFR [...] ORDERABLES Final Resu lt Performing Organization Address City/[facility]/ZIP Co de Phone Number ROHAN CUEVAS ([place]) 1 [facility] [place] [address] * (ABNORMAL) Differential, auto (05/04/2025 3:04 AM CDT) Neutrophil abs 10.58(H) 1.50 - 6.50 K/cumm Imm gran abs 0.12(H) 0.00 - 0.10 K/cumm ROHAN CUEVAS ([place]) Lymphocyte abs 0.38(L) 0.80 - 3.30 [...] Final Resu lt [facility] ([place]) 1 [facility] [place] [address] * (ABNORMAL) CBC with auto differential (05/04/2025 3:04 AM CDT) Pathologist [facility] WBC 11.62(H) 3.80 - 9.90 K/cumm Hgb [...] Final Resu lt ROHAN CUEVAS ([place]) 1 [facility] [place] [address] * (ABNORMAL) Comprehensive metabolic panel (05/04/2025 3:04 AM CDT) [facility] Sodium 138 135 - 145 mmol/L Potassium, [...] Final Resu lt [facility] ([place]) 1 [facility] [place] [address] * POCT glucose (05/04/2025 12:11 AM CDT) Glucose, POC 196 70 - 199 mg/dL Blood 05/04/2025 12:1 1 AM CDT 05/04/2025 12:11 AM CDT us Luca Sifuentse MD LAB POCT ORDERABLES - DEVICE Fi nal Result [facility] ([place]) 1 [facility] [place] [address] * Critical Care (05/03/2025 9:36 PM CDT) [...] plan with the ICU team and other medical/remediation consultant staff, making frequent assessments and decisions [...] DEVICE Fi nal Result Performing Organization Address [facility]/ZIP Co de Phone Number [facility] ([place]) [address] [place] [address] [place] [address] * POCT glucose (05/03/2025 5:54 PM CDT) Glucose, POC 179 70 - 199 mg/dL Blood 05/03/2025 5:54 PM CDT 05/03/2025 5:54 PM CDT Luca Sifuentes MD LAB POCT ORDERABLES - DEVICE Fi nal Result Performing Organization Address [facility] de Phone Number [facility] ([place]) [address] [place] [address] [place] [address] * Infection Prevention MRSA Only (Staphylococcus aureus) PCR Nasal (05/03/2025 4:27 PM CDT) PCR Scrn, Methicillin resistant Staphylococcus aureus (MRSA) Not Detected Not Detected Comment: Interpretive Data Testing performed using Nucleic Acid Amplification with the [employer] Xpert MRSA NxG Assay. This assay detects target DNA from mecA, mecC and the SCCmec insertion site of Staphylococcus aureus using Real-Time PCR and has been cleared by the FDA. Performance characteristics have been verified by the [facility]. Current Interpretive Data was last revised on 2023 Nasal 05/03/2025 4:27 PM CDT 05/03/2025 4:30 PM CDT us Luca Sifuentes MD LAB MICROBIOLOGY - GENERAL ORDE RABLES Final Result Performing Organization Address [facility] Co de Phone Number [facility] ([place]) 1 [place] [address] * (ABNORMAL) Troponin T high-sensitivity 6-hour (05/03/2025 3:34 PM CDT) [facility] Trop T hs 31(H) <=22 ng/L Comment: Interpretive Data For further hscTnT resources including the diagnostic algorithm and an aid in interpretation, copy and paste this link: https://nrl.testcatalog.org/show/hsTrop Current Interpretive Data last revised 2020. Trop T hs delta 9 ng/L [facility] ([place]) Trop T hs interp Equivocal [facility] ([place]) Blood 05/03/2025 3:34 PM CDT 05/03/2025 3:38 PM CDT Bob Albert MD LAB BLOOD ORDERABLES Final Result ROHAN CUEVAS ([place]) 1 [place] [address] * (ABNORMAL) Sepsis Lactate w/ Reflex (05/03/2025 3:34 PM CDT) [facility] Sepsis Lactate 4.2(C) 0.7 - 2.0 mmol/L Comment:Critical called to Russell De Leon RN ICU with read back at 05/03/2025 15:43:44 CDT by Ariadne Jensen Blood 05/03/2025 3:34 PM CDT 05/03/2025 3:38 PM CDT Bob Albert MD LAB BLOOD ORDERABLES Final Result ROHAN CUEVAS ([place]) 1 [place] [address] * POCT glucose (05/03/2025 2:11 PM CDT) [facility] Glucose, POC 104 70 - 199 mg/dL Blood 05/03/2025 2:11 PM CDT 05/03/2025 2:11 PM CDT Luca Sifuentes MD LAB POCT ORDERABLES - DEVICE Fi nal Result Performing Organization Address City/[facility]/ZIP Co de Phone Number ROHAN CUEVAS ([place]) 1 [facility] [place] [address] * (ABNORMAL) Troponin T high-sensitivity 4-hour (05/03/2025 1:12 PM CDT) Trop T hs 36(H) <=22 ng/L Comment: Interpretive Data For further hscTnT resources including the diagnostic algorithm and an aid in interpretation, copy and paste this link: https://nrl.testcatalog.org/show/hsTrop Current Interpretive Data last revised 2020. Trop T hs delta 14(C) ng/L [facility] ([place]) Comment:Critical Result call ed by [email or web address] at 2025-05-03 13:43:16. Result Read Back by Ash De Leon RN ICU Trop T hs interp Significa nt(C) [facility] ([place]) Comment:Critical Result call ed by [email or web address] at 2025-05-03 13:43:16. Result Read Back by Ash De Leon RN ICU Blood 05/03/2025 1:12 PM CDT 05/03/2025 1:13 PM CDT Bob Albert MD LAB BLOOD ORDERABLES Final Result ROHAN CUEVAS ([place]) 1 [facility] [place] [address] * Thyroid Function [place] (05/03/2025 1:12 PM CDT) TSH 2.82 0.30 - 4.20 mcIUnit/mL Blood 05/03/2025 1:12 PM CDT 05/03/2025 2:21 PM CDT Luca Sifuentes MD LAB BLOOD ORDERABLES Final Resu lt Performing Organization Address [facility]/ZIP Co de Phone Number [facility] ([place]) 1 [facility] [place] [address] * (ABNORMAL) Cortisol (05/03/2025 1:12 PM CDT) Cortisol 74.6(H) 4.8 - 19.5 mcg/dl Comment: Interpretive Data Normal Range: 4.8 - 19.5 mcg/dL; Evening: Half of morning value. This analyte undergoes marked diurnal variation. Ranges indicated apply to morning specimens. Current interpretive data was last revised 2018. Testing performed by: [facility], [address] [place] [address], [place]., [address] Blood 05/03/2025 1:12 PM CDT 05/04/2025 9:09 AM CDT us Luca Sifuentes MD LAB BLOOD ORDERABLES Final Resu lt Performing Organization Address [facility] Co de Phone Number [facility] ([place]) 1 [facility] [place] [address] * (ABNORMAL) Sepsis Lactate w/ Reflex (05/03/2025 12:38 PM CDT) [facility] Sepsis Lactate 3.2(H) 0.7 - 2.0 mmol/L Blood 05/03/2025 12:3 8 PM CDT 05/03/2025 12:42 PM CDT us Bob Albert MD LAB BLOOD ORDERABLES Final Result Performing Organization Address City/[facility]/ZIP Co de Phone Number [facility] ([place]) 1 [facility] [place] [address] * (ABNORMAL) Troponin T high-sensitivity 2-hour (05/03/2025 10:58 AM CDT) Trop T hs 33(H) <=22 ng/L Comment: Interpretive Data For further hscTnT resources including the diagnostic algorithm and an aid in interpretation, copy and paste this link: https://nrl.testcatalog.org/show/hsTrop Current Interpretive Data last revised 2020. Trop T hs delta 11(C) ng/L [facility] ([place]) Comment:Critical Result call ed by [email or web address] at 2025-05-03 11:28:36. Result Read Back by Nataliya Ibarra RN ER Trop T hs interp Significa nt(C) [facility] ([place]) Comment:Critical Result call ed by [email or web address] at 2025-05-03 11:28:36. Result Read Back by Nataliya Ibarra RN ER Blood 05/03/2025 10:5 8 AM CDT 05/03/2025 11:01 AM CDT Bob Albert MD LAB BLOOD ORDERABLES Final Result [facility] ([place]) 1 [facility] [place] [address] * (ABNORMAL) Urinalysis reflex to microscopic and culture Urine (05/03/2025 10:46 AM CDT) Color, ur Yellow Yellow Clarity, ur Clear Clear [facility] ([place]) Specific gravity, ur 1.015 1.003 - 1.030 [...] tendency for uric acid stone formation. Source: [facility] [place] Current Interpretive Data was last revised on 2017 Protein, ur ql Negative Negative [facility] ([place]) Glucose, ur ql Negative Negative [facility] ([place]) Ketones, ur Negative Negative [facility] ([place]) Bilirubin, ur Negative Negative [facility] ([place]) Blood, ur Negative Negative [facility] ([place]) Urobilinogen, ur 2.0(A) <2.0 mg/dL [facility] ([place]) Nitrite, ur Negative Negative [facility] ([place]) Leukocyte esterase, ur Negative Negative [facility] ([place]) UA reflex comment Reflex conditions for microscopic UA and culture not met. [facility] ([place]) Urine 05/03/2025 10:4 6 AM CDT 05/03/2025 10:52 AM CDT Bob Albert MD LAB MICROBIOLOGY - GENERAL ORDERABLES Final Result [facility] ([place]) 1 [facility] [place] [address] * CT Chest Abdomen Pelvis WO Contrast (05/03/2025 10:24 AM CDT) Anatomical Region Laterality Modality Body N/A Computed Tomogra phy 05/03/2025 10:3 0 AM CDT Narrative 05/03/2025 10:48 AM CDT EXAM DESCRIPTION: CT CHEST ABDOMEN PELVIS WO CONTRAST REASON FOR STUDY: sepsis Patient arrives via [facility] from home for evaluation of worsening [...] Eduardo Ball M.D. MZ: EULALIA Report ID: [id number] Reading Location: [id number] Procedure Note Jose Eduardo Ball MD - 05/03/2025 EXAM DESCRIPTION: CT CHEST ABDOMEN PELVIS WO CONTRAST REASON FOR STUDY: sepsis Patient arrives via [facility] from home for evaluation of worsening [...] Eduardo Ball M.D. MZ: EULALIA Report ID: [id number] Reading Location: [id number] us Bob Albert MD IMG CT PROCEDURES Final Res ult * CT Head WO Contrast (05/03/2025 10:24 AM CDT) Anatomical Region Laterality Modality Head and Neck N/A Computed Tomogra phy 05/03/2025 10:2 9 AM CDT Narrative 05/03/2025 10:32 AM CDT EXAM DESCRIPTION: CT HEAD WO CONTRAST REASON FOR STUDY: Headache, no red flags Patient arrives via [facility] from home for evaluation of worsening [...] Sebas Rincon M.D. MM: MM Report ID: [id number] Reading Location: [id number] Procedure Note Sebas Rincon MD - 05/03/2025 EXAM DESCRIPTION: CT HEAD WO CONTRAST REASON FOR STUDY: Headache, no red flags Patient arrives via [facility] from home for evaluation of worsening [...] Sebas Rincon M.D. MM: MM Report ID: [id number] Reading Location: [place] [address] Bob Albert MD IMG CT PROCEDURES Final Res ult * ECG 12 lead (05/03/2025 9:25 AM CDT) 05/03/2025 9:25 AM CDT Narrative [facility] - 05/04/2025 8:51 AM CDT Vent Rate: 120 bpm RR Interval: 498 msec IA Interval: 104 msec QRS Duration: 98 msec QT Interval: 308 msec QTC Interval: 379 msec P-R-T [place]: 2 - -11 - -1 degrees IMPRESSION: SINUS TACHYCARDIA WITH SHORT IA INTERVAL POSSIBLE INFERIOR MYOCARDIAL INFARCTION , OF INDETERMINATE AGE [30 ms Q WAVE IN II/aVF] Compared to prior EKG heart rate increased Electronically Signed By: Bernard Martinez MD [facility] Bob Albert MD ECG ORDERABLES Final Resul t [employer] [facility] * Blood culture Blood (05/03/2025 9:22 AM CDT) Report Final Report: No growth Comment:Testing performed by : [facility], 1 [facility], [place]., [address] Blood 05/03/2025 9:22 AM CDT 05/03/2025 11:56 [...] performance characteristics have been verified by the [facility] Microbiology Laboratory. For questions about this culture, contact the Microbiology Laboratory at [phone]. Interpretive data was last revised on 24. us Bob Albert MD LAB MICROBIOLOGY - GENERAL ORDERABLES Final Result [facility] ([place]) 1 [facility] [place] [address] * (ABNORMAL) Blood culture Blood (05/03/2025 9:11 AM CDT) Direct Specimen Exam Stain: Gram Positive Cocci in pairs and chains Time to culture positivity (aerobic media): 8.4 hours Time to culture positivity (anaerobic media): 8.4 hours Notification of: Gram Positive Cocci in pairs and chains called to and read back by: Maria Esther Gross S [phone] on 05/03/2025 21:07:53 by: Gibson Middleton MT Test result called to and read back by iglesia strickland on 05/04/2025 00:20:41 by maria esther gross Comment:Testing performed by : [facility], 1 [place] [address] Direct Specimen Exam Molecular Analysis: Streptococcus species detected by [facility] BCID-GP panel. This test does not exclude the possibility of a mixed bacterial infection. Notification of: Streptococcus species called to and read back by: Maria Esther Gross.[facility] [phone] on 05/03/2025 23:00:48 by: Veronica CUEVAS ([place]) Comment:Testing performed by : [facility], [address] [place]., [address] Report Final Report: Streptococcus dysgalactiae (.) [facility]OHAN CUEVAS ([place]) Comment:Testing performed by : [facility], [address] [place]., [address] Organism STREPTOCOCCUS DYSGALACTIAE [facility] CUEV[facility] ([place]) Blood [...] performance characteristics have been verified by the [facility]biology Laboratory. For questions about this culture, contact the Microbiology Laboratory at [phone]. Interpretive data was last revised on 24. [...] GENERAL ORDERABLES Final Result Performing Organization Address [facility] Co de Phone Number [facility] CUEVAS ([place]) 1 [facility] [place] [address] * Troponin T high-sensitivity series (baseline, 2hr, 4hr, 6hr) (05/03/2025 9:10 AM CDT) Pathologist [facility] Trop T hs 22 <=22 ng/L Comment: Interpretive Data For further hscTnT resources including the diagnostic algorithm and an aid in interpretation, copy and paste this link: https://nrl.testcatalog.org/show/hsTrop Current Interpretive Data last revised 2020. Blood 05/03/2025 9:10 AM CDT 05/03/2025 9:16 AM CDT Bob Albert MD LAB BLOOD ORDERABLES Final Result Performing Organization Address [facility] de Phone Number [facility] ([place]) 1 [facility] [place] [address] * (ABNORMAL) Sepsis Lactate w/ Reflex (05/03/2025 9:10 AM CDT) [facility] Sepsis Lactate 4.0(C) 0.7 - 2.0 mmol/L Comment:Critical Nataliya Stacey, R N called to ER with read back at 05/03/2025 09:24:58 CDT by Ariadne Jensen Blood 05/03/2025 9:10 AM CDT 05/03/2025 9:16 AM CDT Bob Albert MD LAB BLOOD ORDERABLES Final Result Performing Organization Address [facility]/ZIP Co de Phone Number ROHAN CUEVAS ([place]) 1 [facility] [place] [address] * eGFR (05/03/2025 9:10 AM CDT) eGFR [...] MD LAB BLOOD ORDERABLES Final Result ROHAN DARNELL) 1 [facility] [place] [address] * (ABNORMAL) Differential, auto (05/03/2025 9:10 AM [...] MD LAB BLOOD ORDERABLES Final Result [facility] FAITH ([place]) 1 [facility] [place] [address] * (ABNORMAL) CBC with auto differential (05/03/2025 [...] BLOOD ORDERABLES Final Result Performing Organization Address City/[facility]/ZIP Co de Phone Number ROHAN CUEVAS ([place]) 1 [facility] [place] [address] * (ABNORMAL) CRP (acute phase) (05/03/2025 9:10 AM CDT) CRP 19.8(H) <=10.0 mg/L Blood 05/03/2025 9:10 AM CDT 05/03/2025 9:32 AM CDT Bob Albert MD LAB BLOOD ORDERABLES Final Result Performing Organization Address City/State/[facility] Co de Phone Number ROHAN CUEVAS ([place]) 1 [facility] [place] [address] * Magnesium (05/03/2025 9:10 AM CDT) Magnesium 1.5 1.4 - 2.5 mg/dL Blood 05/03/2025 9:10 AM CDT 05/03/2025 9:32 AM CDT Bob Albert MD LAB BLOOD ORDERABLES Final Result [facility] C[facility] ([place]) 1 [facility] [place] [address] * (ABNORMAL) Comprehensive metabolic panel (05/03/2025 9:10 [...] Bilirubin, total 1.9(H) 0.1 - 1.2 mg/dL [facility] Protein, pl 7.2 6.5 - 8.5 g/dL [facility] Albumin 3.0(L) 3.5 - 5.0 g/dL [facility] Alk phos 117 40 - 130 Units/L [facility] ([place]) ALT 17 7 - 55 Units/L [facility] AST 28 10 - 50 Units/L [facility] ([place]) Blood 05/03/2025 9:10 AM CDT 05/03/2025 9:16 AM CDT Bob Albert MD LAB BLOOD ORDERABLES Final Result Performing Organization Address City/State/[facility] Co de Phone Number ROHAN CUEVAS ([place]) 1 [facility] [place] [address] * Diabetic Eye Exam (10/13/2024 2:06 PM GROCERY CLERK) Historical Provider HEALTH MAINTENANCE Edited Result - [...] data last revised 22. Testing performed by: [facility], [address] [place] [address], [place]., [address] Blood 09/09/2024 10:0 7 AM CDT 09/09/2024 5:39 PM CDT Mahesh Llamas MD LAB BLOOD ORDERABLES Sally l Result [facility] C[facility] ([place]) 1 [facility] [place] [address] * Lipid panel (09/09/2024 10:07 AM CDT) [...] last revised on 2018. Testing performed by: [facility], [address] [place] [address]., [address] Triglycerides 63 <=149 mg/dL [facility] C[facility] ([place]) [...] last revised on 2018. Testing performed by: [facility], [address] [place] [address]., [address] HDL 43 >=40 mg/dL [facility] ([place]) Comment: Interpretive Data Ages < or [...] last revised on 2018. Testing performed by: [address] [address] LDL, calculated 39 <=129 mg/dL ROHAN CUEVAS [...] last revised on 2024. Testing performed by: [address] [address] Non-HDL Cholesterol 53 mg/dL [facility] C[facility] ([place]) [...] last revised on 2018. Testing performed by: [address] [address] Chol/HDL ratio 2 ANNALISE CUEVAS ([place]) Comment:Testing performed by : [facility] [address] [place] [address]., [address] Blood 09/09/2024 10:0 7 AM CDT 09/09/2024 5:39 PM CDT Mahesh Llamas MD LAB BLOOD ORDERABLES Sally l Result [facility] ([place]) 1 [facility] [place] [address] * Albumin Creatinine Ratio, Urine (01/10/2024 8:58 AM GROCERY CLERK) Albumin Ur <12.0 mg/L [facility] ([place]) Comment: Interpretive Data No reference range established. Current interpretive data was last revised 2019. Testing performed by: [facility], [address] [place] [address]., [address] Creatinine Ur 124.5 mg/dL [facility] CUEV[facility] ([place]) Comment: Interpretive Data No reference range established. Current interpretive data was last revised 2019. Testing performed by: [facility], [address] [place] [address]., [address] Albumin Creatinine Ratio, Ur <10 1 - 29 mg/g [facility] CUEVAS ([place]) Comment:Testing performed by : [facility], [address] [place] [address]., [address] Urine 01/10/2024 8:58 AM GROCERY CLERK 01/10/2024 11:37 AM GROCERY CLERK Narrative ROHAN CUEVAS ([place]) - 01/10/2024 1:44 PM GROCERY CLERK fasting us Hakan Mccormick MD LAB URINE ORDERABLES Final R esult [facility]OHAN CUEVAS ([place]) 1 [facility] [place] [address] * HM DIABETES FOOT EXAM (01/25/2017) Diabetic Foot Exam Unknown Historical Provider HEALTH MAINTENANCE Final Result * COLONOSCOPY IMAGES (01/15/2015) Anatomical Region Laterality Modality Other Narrative 01/15/2015 Ordered by an unspecified provider. us Historical Provider MD BRIAN PROCEDURE ORDERABLES F inal Result from Last 3 Months or Most Recently Relevant to Health Maintenance Insurance MEDICARE [employer] [place] MEDICARE [facility] MEDICARE [facility] Advance Directives For more information, please contact: [phone] Documents on File Type Date Recorded Patient Otologist Expl anation ADVANCE DIRECTIVE 05/11/2025 11:04 AM Geetha petersen Will ADVANCE DIRECTIVE 05/11/2025 11:04 AM Raymon r of Utility Engineer-Medical * LIMITED - No CPR (Latest Code [...] 3:46 PM 03/06/2024 5:39 PM Care Teams Telephone Exchange Operator Relationship Specialty Start Date End Date Mahesh Llamas MD [address] [place] [address] PCP - General Family Medicine 06/12/24 Maria Esther Montemayor, OT Occupational Therapist Occupational Therapy 09/21/22
--- OUTSIDE RECORDS SUMMARY | 2025-07-23 13:57 | XMS_ITS | Clinical Summary ---
Author Organization [facility] Address [address] [place] [address] Phone Care Team Providers Care Hydro Excavation Operator Name Role Phone Hakan Mccormick MD Primary Care Provider [phone] Social History Tobacco Use Types Packs/Day Years [...] (Adult) (1 - 1-dose 75+ series) 2019 Influenza Immunization (#1) 07/13/202508/13, 08/25/2019 SARS-COV-2 Immunization (3 - season) 2025 02/26/2021, 01/26/2021 Pneumococcal Immunization Combined Discontinued 09/02/2014 Hepatitis B [...] age to complete this topic Insurance MEDICARE [facility] Care Teams Hydro Excavation Operator Relationship Specialty Start Date End Date Hakan Mccormick MD PCP - General Internal Medicine 07/29/19
--- OUTSIDE RECORDS SUMMARY | 2025-07-23 13:57 | XMS_ITS | Clinical Summary ---
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 Active Active Problems Problem Noted Date Diagnosed [...] CDT - 05/29/2025 3:28 PM CDT Surgery [facility] [address] [place] [address] Boom Monsalve MD Left heart cath 05/26/2025 Travel 05/25/2025 9:17 PM CDT - 05/30/2025 5:42 PM CDT Hospital Encounter [facility] Telemetry [address] [place] [address] Fanny Hahn MD Abduljaber, MD Nathan Carrasco, Marimar Cabral MD Dizziness Discharge Disposition: Alf Fac(SNF) with Medicare Certification in Anticipation of Skilled Care from Last 3 Months Social History Tobacco Use Types Packs/Day Years Used Date Smoking Tobacco: Unknown Tobacco Cessation:Counseling Given: Not Answered Feeling Safe Answer Date Recorded Are you in a relationship wi th someone who hurts you emotionally and/or physically? No 05/26/2025 Food Insecurity Answer Date Recorded Patient needs follow up regardin 05/26/2025 Transportation Needs Answer Date Record ed Patient needs follow up regardin 05/26/2025 Utility Needs Answer Date Recorded Patient needs follow up regardin 05/26/2025 Sex and Gender Information Value Date Recorded [...] ) (1 - 1-dose 75+ series) 2019 DIABETES ANNUAL FOOT EXAM 01/17/2025 01/18/2024 INFLUENZA VACCINE (#1) 2025 , 09/14/2023, 09/25/2022, Additional history exists COVID-19 Vaccine (3 - 2024-2 6 season) 2025 02/26/2021, 01/26/2021 DIABETES HBA1C Q 6 MONTHS 12/11/20252024, 06/09/2025, 05/26/2025, Additional history exists LDL CHOLESTEROL ANNUAL 05/26/2026 05/26/2025 PNEUMOCOCCAL VACCINE 50+ YEARS Completed 0 01/13/2016, 09/02/2014, 08/06/2014, Additional history exists Medical Devices Implanted Type Area Wrapping Machine Tender Device Identifier Shelf Expiration Date Model / Serial / Lot Pacemaker (Not Mri Safe) Pacemaker Chest [employer] Description:Per [employer] Re p - NOT conditional. It's an older device from 2013. 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1945 Requested By: FANNY HAHN Order Number: [id number] Reading MD: Jr Little Interpretive Statements Patient was monitored for 4 weeks There were no patient-triggered events There were auto triggered events that correlated with isolated PACs, isolated PVCs, and brief atrial runs There were no atrial fibrillation events, pauses, or advanced AV block Electronically Signed On 07-01-2025 16:17:55 CDT by Jr Little Procedure Note Jr Little MD - 07/01/2025 [facility] [address] [place] [address] Test Date: 2025-06-28 Pat Name: [facility] Department: Room: 2414 1 Gender: Male 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1945 Requested By: FANNY HAHN Order Number: [id number] Reading MD: Jr Little Interpretive Statements Patient was monitored for 4 weeks There were no patient-triggered events There were auto triggered events that correlated with isolated PACs,isolated PVCs, and brief atrial runs There were no atrial fibrillation events, pauses, or advanced AV block Electronically Signed On 07-01-2025 16:17:55 CDT by Jr Little Corina Worley PUNCH FINISHER CARDIAC SERVICES ORDERABLES Final Result Performing Organization Address City/[facility] Co de Phone Number INTERFACE SYSTEM Refer to clinic/hospital department * (ABNORMAL) POC GLUCOSE (05/30/2025 4:47 PM CDT) Only the most recent of26 resultswithin the time period is included. GLUCOSE POC 139(H) 74 - 99 mg/dL 05/30/2025 4:47 PM CDT [facility] SPECIMEN SOURCE, GLUCOSE POC Whole Blood 05/30/2025 4:47 PM CDT [facility] COMMENT, GLU POC Notified RN/MD 05/30/2025 4:47 PM CDT [facility] Blood, whole 05/30/2025 4:47 PM CDT 05/30/2025 4:56 PM CDT Marimar Evans MD POINT OF CARE TESTING Fin al Result Performing Organization Address City/[facility]/ZIP Co de Phone Number [facility] CLIA# [id number] [address] [facility] [place] [address] * LEFT HEART CATH (05/29/2025 2:45 PM CDT) 05/29/2025 1:35 PM CDT Narrative [facility] VASCULAR [facility] - 05/29/2025 2:58 PM CDT [...] Boom Monsalve MD General & Interventional Cardiology [facility] [place] (and [facility]) Procedure Details LEFT HEART CATHETERIZATION/CORONARY ANGIOGRAPHY [...] right radial artery and placed a 6 Niuean sheath via the modified Seldinger technique. We [...] (Official, finalized hemodynamics): LV 110/10 Ao 102/68 us Jennifer Escobedo PUNCH FINISHER CUP CATH ORDERABLES Final Resul t [facility] HE[facility]ULAR [facility] CLIA# [id number] [address] [facility] [address] [place] [address] * TELEMETRY REPORT (05/29/2025 12:23 PM CDT) us Provider Scanning ECG ORDERABLES Final Result * (ABNORMAL) BASIC METABOLIC PANEL (05/29/2025 2:06 AM CDT) Only the most recent of3 resultswithin the time period is included. SODIUM 137 136 - 145 mmol/L 05/29/2025 3:38 AM [facility] [employer] [facility] POTASSIUM 3.9 3.5 - 5.0 mmol/L 05/29/2025 3:38 AM [facility] [employer] [facility] CHLORIDE 102 98 - 107 mmol/L 05/29/2025 3:38 AM [facility] CO2 24 22 - 29 mmol/L 05/29/2025 3:38 AM [facility] [employer] [facility] CALCIUM 8.4(L) 8.6 - 10.2 mg/dL 05/29/2025 3:38 AM [facility] BUN 14 8 - 23 mg/dL 05/29/2025 3:38 AM [facility] CREATININE 0.65(L) 0.67 - 1.17 mg/dL 05/29/2025 3:38 AM [facility] [employer] [facility] Comment:The GFR result is no t clinically significant on patients <18 or >70 years of age. GLUCOSE 216(H) 74 - 99 mg/dL 05/29/2025 3:38 AM [facility] GFR >60 mL/min/1.7 3 sq meter 05/29/2025 3:38 AM [facility] [employer] [facility] Comment:eGFR calculated with 2020 CKD-EPI equation. Vegetarian diet, extremely high or low muscle mass, and may affect results. Cystatin C with Glomerular Filtration Rate is a suitable alternative for these patients. ANION GAP 11 8 - 16 mmol/L 05/29/2025 3:38 AM [facility] [employer] [facility] Blood Venipuncture / Unknown 05/29/2025 2:06 AM CDT 05/29/2025 3:00 AM CDT us Corina Worley NP CHEMISTRY ORDERABLES Final Result [facility] [employer] [facility] CLIA# [id number] [address] [place] [address] * MAGNESIUM LEVEL (05/28/2025 9:33 AM CDT) Only the most recent of2 resultswithin the time period is included. MAGNESIUM 1.7 1.6 - 2.4 mg/dL 05/28/2025 10:36 AM CDT [facility] Blood Venipuncture / Unknown 05/28/2025 9:33 AM CDT 05/28/2025 9:58 AM CDT us Corina Worley NP CHEMISTRY ORDERABLES Final Result [facility] CLIA# [id number] [address] [place] [address] * CT HEAD WO CONTRAST (05/27/2025 11:47 AM CDT) Anatomical Region Laterality Modality Head Computed Tomogra phy 05/27/2025 11:4 7 AM CDT Impressions 05/27/2025 11:51 AM CDT IMPRESSION: 1. No acute intracranial changes. DICTATION LOCATION: Location [address] [place] [address] Narrative 05/27/2025 11:[address] [...] No acute intracranial changes. DICTATION LOCATION: Location [address] [place] [address] ORDERABLES Final Result * (ABNORMAL) CBC WITHOUT DIFFERENTIAL (05/27/2025 5:25 AM CDT) Pathologist [facility] WBC 6.2 4.0 - 9.8 K/uL 05/27/2025 7:27 AM T [facility]AT[facility] SERVICES [facility] RBC 3.77(L) 4.50 - 5.40 M/uL 05/27/2025 7:27 AM [facility] HEMOGLOBIN 11.5(L) 13.6 - 16.5 g/dL 05/27/2025 7:27 AM [facility] LABORATORY SERVICES [facility] HEMATOCRIT 33.8(L) 40.0 - 48.0 % 05/27/2025 7:27 AM T [facility] SERVICES [facility] MCV 89.7 82.0 - 99.0 fL 05/27/2025 7:27 AM T [facility] MCH 30.5 27.2 - 32.6 pg 05/27/2025 7:27 AM [facility] LABORATORY SERVICES [facility] MCHC 34.0 31.5 - 35.5 g/dL 05/27/2025 7:27 AM [facility] LABORATORY SERVICES [facility] PLATELETS 83(L) 140 - 350 K/uL 05/27/2025 7:27 AM CDT [facility] Comment:Persistent abnormal result. MPV 10.5 9.3 - 12.4 fL 05/27/2025 7:27 AM CDT [facility] RDW 17.3(H) 11.5 - 14.5 % 05/27/2025 7:27 AM CDT [facility] RDW-STDEV 56.2(H) 37.1 - 48.7 fL 05/27/2025 7:27 AM CDT [facility] Blood Venipuncture / Unknown 05/27/2025 5:25 AM CDT 05/27/2025 6:40 AM CDT Corina Worley NP HEMATOLOGY ORDERABLES Final Result Performing Organization Address [facility]/ZIP Co de Phone Number [facility] CLWV# [id number] [address] [place] [address] * (ABNORMAL) POTASSIUM LEVEL (05/26/2025 7:11 PM CDT) POTASSIUM 2.8(L) 3.5 - 5.0 mmol/L 05/26/2025 9:09 PM CDT [facility] Blood Venipuncture / Unknown 05/26/2025 7:11 PM CDT 05/26/2025 8:28 PM CDT Marimar Evans MD CHEMISTRY ORDERABLES Sally l Result [facility] CLIA# [id number] [address] [address] * ECHOCARDIOGRAM W/ CONTRAST AGENT (05/26/2025 3:40 PM CDT) EJECTION FRACTION EF: INTERFACE SYSTEM 05/26/2025 3:05 PM CDT Narrative INTERFACE SYSTEM - 05/26/2025 4:56 [place] [address] [email or web address] [email or web address] Echocardiogram Patient: Clyde Gibson Study ID: [id number] Gender: M : 1945 Age: 79 Race: Height 180.3cm Study Date: 05/26/2025 Weight: 112.4kg Access. #: [id number] BP: 120 / 60 *Referring Physician:Kenton Kennedy Wael Mohammed *Ordering Physician:Kenton Kennedy regional sales engineer: Nurse: Indications: Syncope. Benign essential hypertension. History: [...] mm Hg --------- Legend: (L) and (H) jr values outside specified reference range. (N) regalado [...] Prepared and Electronically Authenticated Kin Meeks M.D. [id number]:09 Procedure Note Kin Meeks MD - 05/26/[address] [address] [email or web address] Transthoracic Echocardiogram Patient: Clyde Gibson Study ID: [id number] Gender: M : 1945 Age: 79 Race: Height 180.3cm Study Date: 05/26/2025 Weight: 112.4kg Access. #: [id number] BP: 120 / 60 *Referring Physician:Kenton Kennedy WaelMohammed *Ordering Physician:Kenton Kennedy regional sales engineer: Nurse: Indications: Syncope. Benign essential hypertension. History: [...] mm Hg --------- Legend: (L) and (H) jr values outside specified reference range. (N) regalado [...] Prepared and Electronically Authenticated Kin Meeks M.D. [id number] us Kenton Miguel MD ORDERABLES Sally l Result Performing Organization Address City/State/[facility] Co de Phone Number INTERFACE SYSTEM Refer to clinic/hospital department * CTA HEAD AND NECK W AND/OR WO CONTRAST (05/26/2025 11:47 AM CDT) Anatomical Region Laterality Modality Head Computed Tomogra phy 05/26/2025 11:3 7 AM CDT Impressions 05/26/2025 11:54 AM CDT IMPRESSION: 1. No acute intracranial hemorrhage. 2. No large arterial occlusions or significant stenoses identified in the head or neck. DICTATION LOCATION: [address] 05/26/2025 11:54 AM CDT EXAMINATION: CTA HEAD [...] than 50 percent focal stenosis by [place] Stroke and Carotid Endarterectomy Trial (NASCET) criteria. The right common and internal carotid arteries otherwise appear normal. There is atherosclerotic disease of the left carotid bifurcation and origin of the left internal carotid artery with less than 50 percent focal stenosis by [place] Stroke and Carotid Endarterectomy Trial (NASCET) criteria. [...] than 50 percent focal stenosis by [place] Stroke and Carotid Endarterectomy Trial (NASCET) criteria. The right common and internal carotid arteries otherwise appear normal. There is atherosclerotic disease of the left carotid bifurcation and origin of the left internal carotid artery with less than 50 percent focal stenosis by [place] Stroke and Carotid Endarterectomy Trial (NASCET) criteria. [...] or neck. DICTATION LOCATION: Location 1 - [facility] us Aneudy Workman MD CT ORDERABLES Final Resul t * US VENOUS DOPPLER LEG BILATERAL (05/26/2025 11:16 AM CDT) Anatomical Region Laterality Modality Lower Extremity Ultrasound 05/26/2025 10:5 1 AM CDT Narrative 05/26/2025 3:18 PM CDT [place] [address] [place] [address] [email or web address] Venous Exam Complete Lower Extremity Duplex Patient: Clyde Gibson Study ID: [id number] Gender: M : 1945 Age: 79 Race: Height Study Date: 05/26/2025 Weight: Access. #: [id number] *Referring Physician:Kenton Kennedy Wael Mohammed *Ordering Physician:Kenton Kennedy *Property Disposal Manager:Heather Arreaga History: Edema of both lower extremities. PMH: No prior study is available for comparison. Study data: New node Study status: Routine. Procedure: A vascular evaluation was performed. Image quality was good. Complete lower extremity venous duplex evaluation. Doppler flow study including spectral analysis, color and wirght scale imaging. Birthdate: Patient birthdate: 1945. Age: [...] expressed in mm Prepared and Electronically Authenticated Fanny King [id number] Procedure Note Fanny King MD - 05/26/[address] [address] [email or web address] Venous Exam Complete Lower Extremity Duplex Patient: Clyde Gibson Study ID: [id number] Gender: M : 1945 Age: 79 Race: Height Study Date: 05/26/2025 Weight: Access. #: [id number] *Referring Physician:Kenton Kennedy Wael Mohammed *Ordering Physician:Kenton Kennedy *Property Disposal Manager:Heather Arreaga History: Edema of both lower extremities. [...] expressed in mm Prepared and Electronically Authenticated Fanny King [id number] Kenton Miguel MD ORDERABLES Sally l Result * (ABNORMAL) TROPONIN 6 HR, 5TH GEN (05/26/2025 7:05 AM CDT) TROPONIN T, 6 HR 5TH GEN 29(H) <=15 ng/L 05/26/2025 7:49 AM CDT [facility] [employer] [facility] DELTA 6HR TROPONIN T 1 See Interp. 05/26/2025 7:49 AM CDT [facility] [employer] [facility] Blood Venipuncture / Unknown 05/26/2025 7:05 AM CDT 05/26/2025 7:10 AM CDT Narrative [facility] [employer] [facility] - 05/26/2025 7:49 AM CDT Troponin elevated. Delta indeterminate. Delay in collection of timed specimen beyond recommended collection interval. Results must be interpreted in clinical context. Kenton Miguel MD CHEMISTRY ORDERABLES Final Result [facility] SERVICES - [facility] [place]# [id number] [address] [place] [address] * (ABNORMAL) COMPREHENSIVE METABOLIC PANEL (05/26/2025 7:05 AM CDT) SODIUM 139 136 - 145 mmol/L 05/26/2025 7:49 AM CDT [facility] - [facility] POTASSIUM 2.8(L) 3.5 - 5.0 mmol/L 05/26/2025 7:49 AM CDT [facility] - . [place] CHLORIDE 98 98 - 107 mmol/L 05/26/2025 7:49 AM CDT [facility] - . [place] CO2 31(H) 22 - 29 mmol/L 05/26/2025 7:49 AM CDT [facility] - . [place] CALCIUM 8.6 8.6 - 10.2 mg/dL 05/26/2025 7:49 AM CDT [facility] - . [place] BUN 20 8 - 23 mg/dL 05/26/2025 7:49 AM CDT [facility] - . [facility] CREATININE 0.85 0.67 - 1.17 mg/dL 05/26/2025 7:49 AM CDT [facility] - . [place] Comment:The GFR result is no t clinically significant on patients <18 or >70 years of age. GLUCOSE 124(H) 74 - 99 mg/dL 05/26/2025 7:49 AM CDT [facility] - . [place] TOTAL PROTEIN 6.3(L) 6.7 - 8.6 g/dL 05/26/2025 7:49 AM CDT [facility] - . [place] ALBUMIN 2.8(L) 3.5 - 5.2 g/dL 05/26/2025 7:49 AM CDT [facility] - . [place] BILIRUBIN TOTAL 1.0 0.0 - 1.1 mg/dL 05/26/2025 7:49 AM CDT [facility] - . [facility] ALKALINE PHOSPHATASE 96 40 - 129 U/L 05/26/2025 7:49 AM CDT [facility] [employer] [facility] AST 29 <41 U/L 05/26/2025 7:49 AM CDT [facility] ALT 15 <42 U/L 05/26/2025 7:49 AM CDT [facility] GFR >60 mL/min/1.7 3 sq meter 05/26/2025 7:49 AM T [facility] Comment:eGFR calculated with 2020 CKD-EPI equation. Vegetarian diet, extremely high or low muscle mass, and may affect results. Cystatin C with Glomerular Filtration Rate is a suitable alternative for these patients. ANION GAP 10 8 - 16 mmol/L 05/26/2025 7:49 AM T [facility] Blood Venipuncture / Unknown 05/26/2025 7:05 AM CDT 05/26/2025 7:10 AM CDT [facility] - 05/26/2025 7:49 AM CDT Samples containing indocyanine green cause interferences on Total and/or Direct Bilirubin and must not be measured. Kenton Miguel MD CHEMISTRY ORDERABLES Final Result [facility]# [id number] [address] [facility] [address] [place] [address] * (ABNORMAL) TROPONIN 2 HR, 5TH GEN (05/26/2025 2:50 AM CDT) TROPONIN T, 2 HR 5TH GEN 28(H) <=15 ng/L 05/26/2025 4:15 AM CDT [facility] [employer] [facility] DELTA 2HR TROPONIN T 0 See Interp. 05/26/2025 4:15 AM CDT [facility] Blood Venipuncture / Unknown 05/26/2025 2:50 AM CDT 05/26/2025 3:35 AM CDT Narrative [facility] - 05/26/2025 4:15 AM CDT Troponin elevated. Delta not changing. Delay in collection of timed specimen beyond recommended collection interval. Results must be interpreted in clinical context. Kenton Miguel MD CHEMISTRY ORDERABLES Final Result [facility] [id number] [address] [facility] [place] [address] * (ABNORMAL) DRUG SCREEN, URINE (05/26/2025 12:43 AM CDT) [facility] AMPHETAMINE QUAL, URINE Negative Negative 05/26/2025 1:21 AM CDT [employer] [facility] LABORATORY SERVICES - [facility] BARBITURATE QUAL, URINE Negative Negative 05/26/2025 1:21 AM CDT [employer] LABORATORY SERVICES - [facility] BENZODIAZEPINE QUAL, URINE Negative Negative 05/26/2025 1:21 AM CDT [employer] [facility]ATORY SERVICES - [facility] COCAINE QUAL URINE Negative Negative 2024 1:21 AM CDT [employer] [facility]ATORY SERVICES - [facility] OPIATE QUAL, URINE Negative Negative 2024 1:21 AM CDT [employer] [facility]ATORY SERVICES - [facility] CANNABINOIDS QUAL, URINE Negative Negative 05/26/2025 1:21 AM CDT [employer] [facility] SERVICES - [facility] PCP QUAL, URINE Negative Negative 1:21 AM CDT [employer] [facility] SERVICES - [facility] OXYCODONE QUAL, URINE Negative Negative 05/26/2025 1:21 AM CDT [employer] [facility]ATORY SERVICES - [facility] METHADONE QUAL, URINE Negative Negative 05/26/2025 1:21 AM CDT [employer] [facility]ATORY SERVICES - [facility] FENTANYL QUAL, URINE Negative Negative 05/26/2025 1:21 AM CDT [employer] LAB[facility]ATORY SERVICES - [facility] CREATININE, URINE 38.1(L) 40.0 - 278.0 mg/dL 05/26/2025 1:21 AM T [facility] - [facility] Comment:Reference Range vari es with fluid intake and diet. Urine URINE SPECIMEN OBTAINED BY CLEAN CATCH PROCEDURE / Unknown Collection / Unknown 05/26/2025 12:43 AM CDT 05/26/2025 12:52 AM CDT [facility] [employer] [facility] - 05/26/2025 1:21 AM CDT This test [...] Miguel MD URINE ORDERABLES Fin al Result [facility] [employer] [facility] CLIA# [id number] [address] [place] [address] * (ABNORMAL) TROPONIN BASELINE, 5TH GEN (05/26/2025 12:02 AM CDT) TROPONIN T, BASELINE 5TH GEN 28(H) <=15 ng/L 05/26/2025 12:54 AM CDT [facility] [employer] [facility] Blood Venipuncture / Unknown 05/26/2025 12:02 AM CDT 05/26/2025 12:17 AM CDT [facility] [employer] [facility] - 05/26/2025 12:54 AM CDT Troponin elevated. Kenton Miguel MD CHEMISTRY ORDERABLES Final Result Performing Organization Address City/[facility]/ZIP Co de Phone Number [facility] CLIA# [id number] [address] [place] [address] * (ABNORMAL) CBC WITH DIFFERENTIAL (05/26/2025 12:02 AM CDT) WBC 3.3(L) 4.0 - 9.8 K/uL 05/26/2025 1:38 AM CDT [facility] [employer] [facility] RBC 3.57(L) 4.50 - 5.40 M/uL 05/26/2025 1:38 AM CDT [facility] - [facility] HEMOGLOBIN 11.0(L) 13.6 - 16.5 g/dL 05/26/2025 1:38 AM CDT [facility] - [facility] HEMATOCRIT 32.0(L) 40.0 - 48.0 % 05/26/2025 1:38 AM CDT [facility] - [facility] MCV 89.6 82.0 - 99.0 fL 05/26/2025 1:38 AM CDT [facility] - [facility] MCH 30.8 27.2 - 32.6 pg 05/26/2025 1:38 AM CDT [facility] - [facility] MCHC 34.4 31.5 - 35.5 g/dL 05/26/2025 1:38 AM CDT [facility] - [facility] RDW 17.2(H) 11.5 - 14.5 % 05/26/2025 1:38 AM CDT [facility] - [facility] RDW-STDEV 56.8(H) 37.1 - 48.7 fL 05/26/2025 1:38 AM CDT [facility] - [facility] PLATELETS 70(L) 140 - 350 K/uL 05/26/2025 1:38 AM CDT [facility] - [facility] Comment:Platelets verified b y smear review. MPV 10.8 9.3 - 12.4 fL 05/26/2025 1:38 AM CDT [facility] - [facility] NEUTROPHILS 47 % 05/26/2025 1:38 AM CDT [facility] - [facility] LYMPHOCYTES 33 % 05/26/2025 1:38 AM CDT [facility] - . [facility] MONOCYTES 16 % 05/26/2025 1:38 AM CDT [facility] - . [facility] EOSINOPHILS 4 % 05/26/2025 1:38 AM CDT [facility] - . [facility] BASOPHILS 0 % 05/26/2025 1:38 AM CDT [facility] - [facility] IMMATURE GRANULOCYTES 0 % 05/26/2025 1:38 AM CDT [facility] - [facility] NEUTROPHIL ABSOLUTE 1.52(L) 1.90 - 7.00 K/uL 05/26/2025 1:38 AM CDT [facility] LABORATORY [facility] LYMPHOCYTE ABSOLUTE 1.08 0.70 - 4.50 K/uL 05/26/2025 1:38 AM CDT [facility] . [facility] MONOCYTE ABSOLUTE 0.52 0.10 - 1.30 K/uL 05/26/2025 1:38 AM CDT [facility] . [facility] EOSINOPHIL ABSOLUTE 0.13 0.00 - 0.70 K/uL 05/26/2025 1:38 AM CDT [facility] LABORATORY [facility] - . [facility] BASOPHILS ABSOLUTE 0.01 0.00 - 0.20 K/uL 05/26/2025 1:38 AM CDT [facility]ORATORY SERVICES - . [facility] IMMATURE GRANULOCYTES ABSOLUTE 0.01 0.00 - 0.03 K/uL 05/26/2025 1:38 AM CDT [facility] Blood Venipuncture / Unknown 05/26/2025 12:02 AM CDT 05/26/2025 12:17 AM CDT Kenton Miguel MD HEMATOLOGY ORDERABLE S Final Result [facility]# [id number] [address] [facility] [place] [address] * (ABNORMAL) PTT (05/26/2025 12:02 AM CDT) [facility] PTT 36.6(H) 24.4 - 36.4 seconds 05/26/2025 12:41 AM CDT [facility] Comment: PTT Therapeutic Range: Heparin Level PTT (seconds) <0.10 units/mL <55.8 0.10 - 0.30 units/mL 55.8 - 74.3 0.30 - 0.70 units/mL* 74.3 - 111.2* 0.70 - 1.00 units/mL 111.2 - 138.9 *corresponds to therapeutic range for unfractionated heparin Blood Venipuncture / Unknown 05/26/2025 12:02 AM CDT 05/26/2025 12:17 AM CDT Kenton Miguel MD HEMATOLOGY ORDERABLE S Final Result [facility] CLIA# [id number] [address] [place] [address] * PHOSPHORUS (05/26/2025 12:02 AM CDT) PHOSPHORUS 2.9 2.5 - 4.5 mg/dL 05/26/2025 12:54 AM CDT [facility] Blood Venipuncture / Unknown 05/26/2025 12:02 AM CDT 05/26/2025 12:17 AM CDT Kenton Miguel MD CHEMISTRY ORDERABLES Final Result Performing Organization Address City/[facility]/ZIP Co de Phone Number [facility] [employer] [facility] CLIA# [id number] [address] [place] [address] * (ABNORMAL) HEMOGLOBIN A1C (05/26/2025 12:02 AM CDT) HEMOGLOBIN A1C 6.2(H) <5.7 % 05/26/2025 12:42 AM CDT [facility] EST. AVG GLUCOSE, A1C 131 mg/dL 05/26/2025 12:42 AM CDT [facility] Blood Venipuncture / Unknown 05/26/2025 12:02 AM CDT 05/26/2025 12:17 AM CDT Narrative [facility] - 05/26/2025 12:42 AM CDT HGB A1C INTERPRETATION NORMAL: <5.7% PRE-DIABETES: 5.7 - 6.4% DIABETES: 6.5% OR GREATER Kenton Miguel MD CHEMISTRY ORDERABLES Final Result [id number] [place] [place] [address] * (ABNORMAL) LIPID PANEL (05/26/2025 12:02 AM CDT) Pathologist [facility] CHOLESTEROL 91 <200 mg/dL 05/26/2025 12:54 AM T [facility] TRIGLYCERIDE 106 <150 mg/dL 05/26/2025 12:54 AM T [facility] HDL 28(L) 40 - 59 mg/dL 05/26/2025 12:54 AM T [facility] [employer] [facility] - . [facility] LDL CALCULATED 42 <100 mg/dL 05/26/2025 12:54 AM [facility] [employer] [facility] NON-HDL CHOLESTEROL 63 <130 mg/dL 05/26/2025 12:54 AM [facility] [employer] [facility]. [facility] Blood Venipuncture / Unknown 05/26/2025 12:02 AM CDT 05/26/2025 12:17 AM CDT Narrative [facility] - [facility] - 05/26/2025 12:54 AM CDT TOTAL CHOLESTEROL [...] Kenton Miguel MD CHEMISTRY ORDERABLES Final Result [facility]# [id number] [address] [place] [address] from Last 3 Months Insurance MEDICARE PART A AND B [facility] Advance Directives For more information, please contact: [phone] Documents on File Type Date Recorded Patient Home Help Aide Expl anation Advance Directive POA 06/02/2025 11:01 [...]
--- OUTSIDE RECORDS SUMMARY | 2025-07-23 13:57 | XMS_ITS ---
Author Organization [facility] Address [address] [place] [address] Care Team Providers Care Client Finance Analyst Name Role Phone Maria Esther Montemayor OT Unavailable Unavailable Mahesh Llamas MD Primary Care Provider [phone] Active Problems Problem Noted Date Diagnosed Date [...] 10/11/2023 Assessment & Plan (10/11/2023 3:31 PM INTERFACE ENGINEER): Acute problem- this is a new problem [...] 06/21/2020 Assessment & Plan (01/18/2024 11:06 AM INTERFACE ENGINEER): Check thyroid studies again due to anemia and call back for results Assessment & Plan (07/10/2023 2:32 PM CDT): Remains asymptomatic and will check TSH and free T4 in 1 year. Assessment & Plan (01/08/2023 1:39 PM INTERFACE ENGINEER): Check TSH and FT4 before next visit. [...] mg Assessment & Plan (01/18/2024 11:06 AM INTERFACE ENGINEER): Rate controlled on carvedilol and will continue anticoagulation based on gas well drilling manager's recommendations. Assessment & Plan (07/10/2023 2:30 PM CDT): Rate controlled on carvedilol and will continue anticoagulation per his gas well drilling manager recommendations. Assessment & Plan (07/10/2022 1:40 PM CDT): Rate controlled will continue anticoagulation per his gas well drilling manager recommendations Assessment & Plan (10/24/2021 2:41 PM INTERFACE ENGINEER): Rate controlled on carvedilol and will continue anticoagulation per his gas well drilling manager. Assessment & Plan (07/07/2021 1:42 PM CDT): Rate controlled on beta-robyn will continue Xarelto for anticoagulation. Assessment & Plan (01/06/2021 7:51 PM INTERFACE ENGINEER): Rate controlled on beta-robyn and continue Xarelto for anticoagulation. Assessment & Plan (10/29/2020 2:25 PM INTERFACE ENGINEER): Rate controlled on his beta-robyn and will continue Xarelto for anticoagulation. Assessment & Plan (06/21/2020 10:17 AM CDT): Continue Xarelto for anticoagulation through his gas well drilling manager office and rate is currently well controlled on his metoprolol Chronic left shoulder pain 11/24/2019 Assessment & Plan (11/24/2019 12:02 PM INTERFACE ENGINEER): X-rays show osteoarthritis. Examination shows possible impingement syndrome. Orthopedic referral for further evaluation. SSS (sick sinus syndrome) 11/14/2019 Assessment & Plan (11/14/2019 1:52 PM INTERFACE ENGINEER): Last interrogation showed 9% A pace, 12% V pace frequent PAF with burden 40%, MARIO 7.3 years Lymphedema due to venous insufficiency 9 Overview (06/21/2020): Discharged from [facility]; pump + velcro compression bandages. 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 for possible lower extremity infection Assessment & Plan (01/18/2024 11:06 AM INTERFACE ENGINEER): Encouraged strict compliance with his wrappings and [...] pump. Assessment & Plan (10/24/2021 2:41 PM INTERFACE ENGINEER): He has some skin breakdown on his left lower extremity and will refer to [facility] wound care center for further evaluation. He may need to go back to [facility] for chronic management of his lymphedema. Assessment & Plan (07/07/2021 1:42 PM CDT): Continue pump and Velcro compression bandages and return to [facility] as needed. Assessment & Plan (06/21/2020 10:17 AM CDT): He should be more compliant with his pump and Velcro compression bandages. Assessment & Plan (11/24/2019 12:01 PM INTERFACE ENGINEER): Patient should follow-up with the lymphedema clinic and follow their directions. Assessment & Plan (07/24/2019 5:01 PM CDT): Referral to [facility] lymphedema clinic. Will see him back in about a month for his missed follow-up examination with lab sooner if needed. Basal cell carcinoma (BCC) of right upper arm Overview (05/19/2019): Added automatically from request for surgery [id number] Skin lesion of right upper extremity 05/06/2019 Ventral hernia without obstruction or gangrene 0 04/24/2019 Overview (04/24/2019): Added automatically from request for surgery [id number] Assessment & Plan (07/24/2019 5:00 PM CDT): [...] 03/21/2018 Assessment & Plan (09/18/2024 7:55 PM INTERFACE ENGINEER): Wound care as discussed. Start on Augmentin b.i.d. times 10 days. Assessment & Plan (01/18/2024 11:06 AM INTERFACE ENGINEER): Cephalexin for 10 days and call back if no improvement. Assessment & Plan (11/24/2019 12:02 PM INTERFACE ENGINEER): Resolved after the addition of Bactrim. Return to clinic for recurrent signs of infection. Follow-up with the lymphedema clinic as they direct. Assessment & Plan (11/10/2019 5:45 PM INTERFACE ENGINEER): Significantly improved since last visit. Patient instructed [...] evaluation. Assessment & Plan (11/10/2019 4:57 PM INTERFACE ENGINEER): Will add Bactrim 800-160 mg per tab [...] discussed. Assessment & Plan (10/29/2019 2:43 PM INTERFACE ENGINEER): Recommend in doxycycline 100 mg b.i.d. Times 10 days and follow-up in 1 week. In addition instructed on use of rbse-rey-wrvteot probiotics as well as yogurt to help [...] days follow up here in a week. Ofhh-whu-[id number] probiotics or Bengali yogurt to assist GI upset was discussed. [...] recommended. Assessment & Plan (10/22/2018 2:07 PM INTERFACE ENGINEER): Patient is encouraged to lose weight with [...] obesity discussed. Thrombocytopenia ([facility]/HCC) 02/05/2018 Assessment & Plan (09/18/2024 7:55 PM INTERFACE ENGINEER): Followed by hematology. Assessment & Plan (01/18/2024 11:05 AM INTERFACE ENGINEER): Platelet level back to baseline. Currently asymptomatic. Assessment & Plan (07/10/2023 2:33 PM CDT): Asymptomatic. Just below his chronic baseline will check again in 6 months and he should call back if bruising or bleeding develops. Hematology referral if worsens. Assessment & Plan (07/10/2022 1:39 PM CDT): Mild chronic stable and asymptomatic. Check again 1 year. Assessment & Plan (11/30/2021 5:51 PM INTERFACE ENGINEER): Chronic, stable. SCDs for DVT ppx. Assessment & Plan (10/24/2021 2:40 PM INTERFACE ENGINEER): Chronic mild stable and asymptomatic Assessment & [...] prevention, proper nutrition, and suggested joining [facility] to accomplish most of these goals. [...] 08/02/2017 Assessment & Plan (01/18/2024 11:07 AM INTERFACE ENGINEER): Recheck B12 level along with iron panel, [...] year. Assessment & Plan (01/06/2021 7:51 PM INTERFACE ENGINEER): Continue B12 supplementation. Assessment & Plan (06/21/2020 [...] medication. Assessment & Plan (01/06/2021 7:51 PM INTERFACE ENGINEER): Remains stable without medication. Assessment & Plan (06/21/2020 10:17 AM CDT): Remains stable without medication. Assessment & Plan (08/25/2019 3:19 PM CDT): Remains stable without medication. Assessment & Plan (03/05/2019 9:51 AM CDT): Stable without medication. Assessment & Plan (10/22/2018 2:06 PM INTERFACE ENGINEER): Stable without medication. Assessment & Plan (07/15/2018 9:35 PM CDT): Declines need for medication Assessment & Plan (02/05/2018 5:51 PM CDT): Stable without medication. Edema of both legs 08/02/2017 Assessment & Plan (11/30/2021 5:50 PM INTERFACE ENGINEER): Secondary to lynphedema. Chronic, stable. ProBNP is normal. Follows with Dr. Baeza as outpatient. Assessment & Plan (10/29/2020 2:25 PM INTERFACE ENGINEER): He knows to be more compliant with [...] level or above, find some sequential stockings [id number] to see if that can assist with [...] NOS Assessment & Plan (09/18/2024 7:54 PM INTERFACE ENGINEER): BP at goal 110/70. Continue present medications. Assessment & Plan (06/25/2024 12:57 PM CDT): Stable, well controlled, blood pressure goal; no chest pain or pressure; no headaches Continue carvedilol 6.25 mg daily Assessment & Plan (01/18/2024 11:05 AM INTERFACE ENGINEER): Blood pressure well controlled on carvedilol, chlorthalidone, lisinopril Assessment & Plan (07/10/2023 2:31 PM CDT): Blood pressure well controlled on carvedilol, chlorthalidone, lisinopril Assessment & Plan (01/08/2023 1:39 PM INTERFACE ENGINEER): Blood pressure well controlled on chlorthalidone, lisinopril Assessment & Plan (07/10/2022 1:40 PM CDT): Well controlled on the current regimen. Avoidance of salt, proper body weight, and routine exercise recommended. Assessment & Plan (02/23/2022 1:55 PM CDT): Well controlled on the current regimen. Avoidance of salt, proper body weight, and routine exercise recommended. Assessment & Plan (12/09/2021 10:30 AM INTERFACE ENGINEER): Well controlled on the current regimen. Avoidance of salt, proper body weight, and routine exercise recommended. Assessment & Plan (11/30/2021 5:49 PM INTERFACE ENGINEER): Home meds resumed, BP is well controlled. Will hold beta robyn as stress test planned for tomorrow. Continue to monitor. Assessment & Plan (10/24/2021 2:40 PM INTERFACE ENGINEER): Well controlled on the current regimen. Avoidance of salt, proper body weight, and routine exercise recommended. Consider restarting low-dose lisinopril if micro and creatinine ratio raise in the future. Assessment & Plan (07/07/2021 1:41 PM CDT): Well controlled on the current regimen. Avoidance of salt, proper body weight, and routine exercise recommended. Assessment & Plan (01/06/2021 7:51 PM INTERFACE ENGINEER): Well controlled on the current regimen. Avoidance of salt, proper body weight, and routine exercise recommended. Assessment & Plan (10/29/2020 2:25 PM INTERFACE ENGINEER): Continue holding lisinopril. Call back if blood pressures elevate consistently near 140/90 so we can restart lisinopril 5 mg daily. He is to check with gas well drilling manager regarding which beta-robyn he should be on. We may need to cut down his chlorthalidone or furosemide in the future. Assessment & Plan (06/21/2020 10:17 AM CDT): Well controlled on the current regimen. Avoidance of salt, proper body weight, and routine exercise recommended. Assessment & Plan (11/24/2019 11:58 AM INTERFACE ENGINEER): Well controlled on the current regimen. Avoidance [...] recommended. Assessment & Plan (10/22/2018 2:06 PM INTERFACE ENGINEER): Well controlled on the current regimen. Avoidance [...] NEC/NOS Assessment & Plan (01/18/2024 11:05 AM INTERFACE ENGINEER): Well controlled on current therapy and will check a lipid panel and LFTs in 6 months. Assessment & Plan (07/10/2023 2:31 PM CDT): Well controlled on current therapy and will check a lipid panel and LFTs in 6 months. Assessment & Plan (01/08/2023 1:39 PM INTERFACE ENGINEER): Well controlled on current therapy and will [...] months. Assessment & Plan (12/09/2021 10:31 AM INTERFACE ENGINEER): Continue his atorvastatin check lipids and LFTs before next visit. Assessment & Plan (10/24/2021 2:40 PM INTERFACE ENGINEER): Well controlled on current therapy and will check a lipid panel and LFTs in 6 months. Assessment & Plan (07/07/2021 1:41 PM CDT): Well controlled on current therapy and will check a lipid panel and LFTs in 6 months. Assessment & Plan (01/06/2021 7:51 PM INTERFACE ENGINEER): Well controlled on current therapy and will [...] months. Assessment & Plan (10/22/2018 2:06 PM INTERFACE ENGINEER): Well controlled on current therapy and will [...] and LFTs in 6 months. Atherosclerosis of [place] co ronary artery of [place] heart with stable angina pectoris 03/28/2014 Overview (02/15/2017): COR ATH UNSP VSL NTV/GFT Assessment & Plan (06/25/2024 12:56 PM CDT): Stable, well controlled, catheterization in 2021 Continue ASA 81 mg daily, atorvastatin 40 mg daily, carvedilol 6.25 mg b.i.d., Imdur 60 mg daily Assessment & Plan (01/18/2024 11:04 AM INTERFACE ENGINEER): Continue continue current medication regimen follow up with his gas well drilling manager as they direct Assessment & Plan (07/10/2023 2:30 PM CDT): Continue current medication regimen and follow up with his gas well drilling manager as they direct Assessment & Plan (07/10/2022 1:40 PM CDT): Continue current medication regimen follow up with gas well drilling manager as they direct Assessment & Plan (12/09/2021 10:30 AM INTERFACE ENGINEER): Recent catheterization without need for intervention. Continue current medication regimen and follow up with gas well drilling manager as they direct. Assessment & Plan (07/07/2021 1:41 PM CDT): Continue current medication regimen and follow up with gas well drilling manager as they direct. Assessment & Plan (01/06/2021 7:52 PM INTERFACE ENGINEER): Continue current medication regimen and follow up with gas well drilling manager as they direct. Assessment & Plan (06/21/2020 10:18 AM CDT): Continue current medication regimen follow up with gas well drilling manager as they direct. Assessment & Plan (11/14/2019 1:50 PM INTERFACE ENGINEER): Pt currently denies any chest pain or shortness of breath Assessment & Plan (08/25/2019 3:19 PM CDT): Continue aspirin, atorvastatin, carvedilol, isosorbide mononitrate, lisinopril, Xarelto and follow up with gas well drilling manager as they direct. Assessment & Plan (05/04/2019 2:10 PM CDT): Continue aspirin, atorvastatin, carvedilol, isosorbide mononitrate, lisinopril and follow up with gas well drilling manager as they direct. I Have asked him [...] nitroglycerin p.r.n. and follow up with his gas well drilling manager as they direct Assessment & Plan (08/02/2017 2:51 PM CDT): Continue current medication regimen and follow up with gas well drilling manager as he directs. Degeneration of intervertebral disc of cervical region 03/28/2014 Overview (02/15/2017): DDD (degenerative disc disease), cervical History of prostate cancer 03/28/2014 Overview (02/05/2018): Davinci prostatectomy [address] gonzalez. Assessment & Plan (01/18/2024 11:05 AM INTERFACE ENGINEER): Recommend PSA checks once yearly. Assessment & Plan (07/10/2023 2:31 PM CDT): PSA remains undetectable and will check again 1 year. Assessment & Plan (10/24/2021 2:40 PM INTERFACE ENGINEER): PSA undetectable. Assessment & Plan (07/07/2021 1:41 [...] Assessment & Plan (02/05/2018 5:50 PM CDT): Clarcandace pInarnancy. Carpal tunnel syndrome 07/18/2012 Overview (02/15/2017): Carpal [...] weekly Assessment & Plan (01/18/2024 11:07 AM INTERFACE ENGINEER): A1c, LDL, and blood pressure currently well [...] abnormal. Assessment & Plan (01/08/2023 1:38 PM INTERFACE ENGINEER): A1c, LDL, and blood pressure currently well [...] abnormal. Assessment & Plan (11/30/2021 5:48 PM INTERFACE ENGINEER): On Metformin and Trulicity at home. Here initiated on insulin basal bolus regimen per hospital protocol. Monitor accuchecks on SSI, titrate regimen as needed. Assessment & Plan (10/24/2021 2:40 PM INTERFACE ENGINEER): A1c, LDL, and blood pressure currently well controlled on current regimen. Check a yearly diabetic eye exam and blood sugars daily. Monofilament testing is intact. Assessment & Plan (07/07/2021 1:41 PM CDT): A1c up trending and we discussed importance of diet exercise and weight loss. Continue his metformin Trulicity and repeat A1c before next visit. Assessment & Plan (01/06/2021 7:51 PM INTERFACE ENGINEER): A1c, LDL, and blood pressure currently well [...] . Assessment & Plan (10/22/2018 2:06 PM INTERFACE ENGINEER): A1c, LDL, and blood pressure currently well [...] a daily aspirin. Monofilament testing is abnormal. Current Treatment and Therapy Plans No current plan information found. Past Treatment and Therapy Plans No past plan information found. Lifetime Dose Tracking * Chemical Lifetime Dose Automatic Entry Manual Entr y Fluoro Time 2.9 minutes 0 minutes 2.9 minutes Resolved Problems Problem Noted Date Diagnosed Date Resolved Date Hypokalemia 03/04/2024 05/05/2025 Acute chest pain 11/29/2021 05/05/2025 Assessment & Plan (12/09/2021 10:30 AM INTERFACE ENGINEER): No recurrences since discharge. Unremarkable coronary catheterization. Follow up Cardiology as they direct. Assessment & Plan (11/30/2021 5:47 PM INTERFACE ENGINEER): Pt with significant cardiac history, presenting with [...]
[2025-07-23] MEDS: POTASSIUM BICARBONATE 25 MEQ TABEF 50 MEQ PO (14:26)
[2025-07-23] MEDS: cefTRIAXone 1 GM in SODIUM CHLORIDE 0.9% IV 50 ML 100 ML IVPB ×2 (14:27→18:00)
--- NOTE | 2025-07-23 15:00 | ADMGEN ---
This patient, Clyde Gibson, was admitted to 2nd Floor Room 207 due to UTI. Patient/family oriented to hospital policies and general routines including ID bracelet, bed and alarms, visiting hours, pain management, procedures, bathroom and other care routines, personal items, smoking policy, room service/diet, and visiting hours. Information on how to activate the Rapid Response Team has been discussed. Patient/Family are encouraged to report perceived risks to care and to ask questions if they do not understand what they are told or what they should do.
[2025-07-23] MEDS: LACTULOSE 20 GM/30 ML UDC PO (17:35)
[2025-07-23] MEDS: ATORVASTATIN 40 MG TABLET PO (17:35)
[2025-07-23] MEDS: KCL 40 MEQ/0.9% SOD CHL 1,000 ML 100 ML IV CONT (18:00)
[2025-07-23] MEDS: TOLNAFTATE 1% POWDER 45 GM BTL 1 APPLIC TOPICAL (21:00)
[2025-07-23] MEDS: HYDROcodone/acetaminophen (*CRX) 5-325 MG TABLET 1 TAB PO (21:23)
[2025-07-24] VITALS: BP 94/66; PULSE 81; RESP 18; TEMP 36.6; O2SAT 98
--- NOTE | 2025-07-24 | CONSULT_PTH ---
PATIENT: Clyde Gibson LOC: [facility] U#:[id number] AGE/SX: 80/M ROOM: [facility] RE07/24/[address]: Hany Weeks MD : 1945 BED: 1 DIS: 07/25/2025 SPEC #: [id number] RECD: 07/24/25 09:21 STATUS: MARILYN REPramod #: [id number] NIK: 07/24/25 00:[address]: Leo Weeks DEPT: [facility] Consult RECD BY: Jeanine Kuhn MLT, ([facility]) ENTERED: 07/24/25 09:23 SP TYPE: Consult OTHR DR: Mahesh Llamas, MD Ananya Stoddard APRN Tissues: A - Peripheral Smear Procedures: Hematology Consult
[2025-07-24] MEDS: KCL 40 MEQ/0.9% SOD CHL 1,000 ML 100 ML IV CONT ×2 (04:58→15:09)
[2025-07-24 07:11] LABS: Hematocrit 24.7 % (37.0-46.0); Hemoglobin 8.1 g/dL (12.4-15.3); Immature Platelet Fraction Pct 2.4 % (1.0-7.0); Mean Corpuscular HGB Conc 32.8 g/dL (32-36); Mean Corpuscular Hemoglobin 31.2 pg (27.0-31.0); Mean Corpuscular Volume 95.0 fL (78.0-102.0); Platelet Count Result 48 K/mm3 (150-420); Red Blood Count 2.60 M/mm3 (4.70-6.10); White Blood Count 2.9 K/mm3 (4.8-10.8)
[2025-07-24 07:24] LABS: Alanine Aminotransferase 34 U/L (6-50); Albumin Level 2.6 g/dL (3.5-5.1); Alkaline Phosphatase 111 U/L (38-126); Anion Gap 7 mmol/L (4-12); Aspartate Amino Transferase 59 U/L (17-59); Bilirubin,Total 1.5 mg/dL (0.2-1.3); Blood Urea Nitrogen 20 mg/dL (9-20); Calcium 7.7 mg/dL (8.4-10.2); Carbon Dioxide 35 mmol/L (22-30); Chloride 94 mmol/L (98-107); Estimated CRCL calculation 51 ml/min; Estimated Glomerular Filt Rate 54; Glucose 113 mg/dL (65-110); Magnesium 2.0 mg/dL (1.6-2.3); Osmolality Calculated 285 mOsm/kg (285-295); Sodium 136 mmol/L (137-145); Total Protein 5.7 g/dL (6.3-8.2)
[2025-07-24 07:29] LABS: Potassium 2.5 mmol/L (3.4-5.0)
[2025-07-24 07:52] LABS: Band Neutrophils Percent 0 % (0-6); Eosinophils Absolute Manual 0.08 K/mm3 (0.02-0.50); Eosinophils Percent Manual 3 % (1-6); Lymphocytes Absolute Manual 0.66 K/mm3 (1.1-4.5); Lymphocytes Percent Manual 23 % (18-44); Monocytes Absolute Manual 0.34 K/mm3 (0.1-0.90); Monocytes Percent Manual 12 % (3-9); Neutrophils Absolute Manual 1.79 K/mm3 (1.3-6.7); Neutrophils Percent Manual 62 % (46-73); Total Cells Counted 100
[2025-07-24 08:00] VITALS: BP 98/50; PULSE 63; RESP 16; TEMP 36.1; O2SAT 99
[2025-07-24] MEDS: POTASSIUM CHLORIDE 20 MEQ ER TABLET 40 MEQ PO ×2 (08:25)
[2025-07-24] MEDS: CYANOCOBALAMIN 500 MCG TABLET 1000 MCG PO (08:26)
[2025-07-24] MEDS: oxyBUTYnin CHLORIDE XL 5 MG TAB.ER.24 PO (08:26)
[2025-07-24] MEDS: LACTULOSE 20 GM/30 ML UDC PO ×2 (08:27→17:45)
[2025-07-24] MEDS: TOLNAFTATE 1% POWDER 45 GM BTL 1 APPLIC TOPICAL ×2 (08:30→20:51)
[2025-07-24 10:13] LABS: Ammonia 63 umol/L (9-30)
[2025-07-24 11:57] LABS: Free T4 Free Thyroxine 1.29 ng/dL (0.78-2.19)
--- NOTE | 2025-07-24 14:26 | P.HP_ITS ---
H&P: HPI History of Present Illness Date/Time: 07/24/25 14:26 Chief Complaint: AMS/lethargic Narrative: Patient is 80-year-old male who presented [facility] emergency department [facility] due to reports having altered mental status from his baseline with some lethargy. Patient has quite a significant past medical history with some to include previous CVA, cirrhosis of the liver with pancytop enia, previous metastatic prostate cancer, CHF, HTN, HLD, PE and DVT, diabetes, toxic encephalopathy, BPH with bladder spasm. In the ED: Initial findings emergency department showed pancytopenia WBC 3.7 hemoglobin of 8.3, platelets 59. Is off found to severe hypokalemia at 2.1, INGRIS with of 1.4, T bili 1.8 elevated AST 63. UA was suspicious for UTI nitrate and leukocyte positive with 3+ bacteriuria, CT head showed no acute intracranial abnormality and chest x-ray showing moderate pulmonary venous congestion. Patient with soft blood pressures started IV fluid resuscitation had lactic 4.7 . Patient was admitted to the unit received a dose IV Rocephin UTI and potassium replacement. Patient was evaluated the following day had ordered an ammonia level day prior which is at 47 give single dose of lactulose with no improvement to 67 in transitioned to lactulose t.i.d. likely secondary to his cirrhosis and could be contributing to his altered mental status. Upon my evaluation patient was alert and oriented able to follow commands and answer questions appropriately. I would increase his Rocephin to 2 g due to complicated UTI. Patient denied any chest pain shortness a breath, nausea vomiting, difficulty defecating reported he was chest severely tired. Review of Systems Review of Systems: All systems reviewed & are unremarkable except as noted in HPI and below [facility] Past Medical History Medical History (Updated 07/24/25 @ 15:06 by Ananya Stoddard, TARYN) Pulmonary embolism Pancytopenia Hypertension CHF (congestive heart failure) CVA (cerebral vascular accident) Cirrhosis of liver Prostate cancer Diabetes mellitus Myocardial infarction Social History Social History Smoking status: Never smoker Second hand tobacco smoke exposure: Yes Alcohol intake: never Alcohol use details: none since 2009 Substance use: never Substance use type: does not use Lack of Transportation: No Lack of Food: Never True Current Housing: I Have Housing Concerned About Future Housing: No Difficulty Paying Gas/Electric Bills: No Difficulty Paying for Meds: No Currently Unemployed: No Education: Associate Degree Difficulty w/ Childcare or Family Care: No Living arrangements: with family Spiritual care concerns: No Meds Home Medications and Allergies Home Medications ?Medication ?Instructions ?Recorded ?Confirmed ?Type aspirin 81 mg tablet 81 mg PO DAILY 07/01/2407/13 History atorvastatin 40 mg tablet 40 mg PO QPM 07/01/24 History carvedilol 6.25 mg tablet 6.25 mg PO BID 07/01/2407/13 History chlorthalidone 50 mg tablet 50 mg PO 3XW 07/01/2407/13 History mecobalamin (vitamin B12) 500 mcg 1,000 mcg PO DAILY 0 07/01/24 07/23/25 History chewable tablet metformin 500 mg tablet 2,000 mg PO DAILY 07/01/24 0 07/23/25 History potassium chloride 20 mEq 40 meq PO DAILY 07/01/2410/06 History tablet,extended release(part/cryst) torsemide 40 mg tablet 40 mg PO QAM 05/25/25 History apixaban 5 mg tablet (Eliquis) 5 mg PO BID 07/23/25 History carvedilol 3.125 mg tablet 3.125 mg PO Q12H 07/23/25 0 07/23/25 History isosorbide mononitrate 60 mg 90 mg PO QAM 07/23/2510/06 History tablet,extended release 24 hr oxybutynin chloride 5 mg 5 mg PO DAILY 07/23/2507/23 History tablet,extended release 24 hr vitamin B12 0.5 mg-folic acid 1 mg 1 tablet PO DAILY 0 07/23/25 07/23/25 History tablet (Foltrate) Allergies Allergy/AdvReac Type Severity Reaction Status Date / Time Iodinated Contrast Media Allergy Unknown Anaphylaxis Verified 07/23/25 11:29 Vital Signs Vital Signs - 24 hr 07/23/25 14:30 07/23/25 14:31 07/23/25 15:10 Temperature 97 F L Pulse Rate 89 83 79 Respiratory Rate 16 15 18 Blood Pressure 97/74 L 95/46 L Pulse Oximetry 99 98 Oxygen Delivery Room Air 07/23/25 16:23 07/23/25 21:24 07/24/25 00:00 Temperature 97.9 F Pulse Rate 81 81 Respiratory Rate 18 Blood Pressure 94/66 L Pulse Oximetry 98 98 Oxygen Delivery Room Air Room Air 07/24/25 08:00 Temperature 97.0 F L Pulse Rate 63 Respiratory Rate 16 Blood Pressure 98/50 L Pulse Oximetry 99 Oxygen Delivery Room Air H&P: Results Labs Labs: Short CBC 07/24/25 Range/Units 07:01 WBC 2.9 L (4.8-10.8) K/mm3 Hgb 8.1 L (12.4-15.3) g/dL Hct 24.7 L (37.0-46.0) % Plt Count 48 L (150-420) K/mm3 BMP 07/24/25 07:01 Sodium 136 L Potassium 2.5 L* Chloride 94 L Carbon Dioxide 35 H BUN 20 Creatinine 1.28 Glucose 113 H Calcium 7.7 L Liver Function 07/24/25 Range/Units 07:01 Total Bilirubin 1.5 H (0.2-1.3) mg/dL Direct Bilirubin < 0.1 (0-0.3) mg/dL AST 59 (17-59) U/L ALT 34 (6-50) U/L Alkaline Phosphatase 111 (38-126) U/L Albumin 2.6 L (3.5-5.1) g/dL Assessment and Plan Assessment and plan (1) Hepatic encephalopathy: Code(s): K76.82 - Hepatic encephalopathy Status: Acute Assessment and Plan: Patient with history of cirrhosis and previous history toxic encephalopathy on admission patient's ammonia level was elevated 47 to be contributing to his altered mental status. * Lactulose t.i.d. * Trend ammonia level * Neuro checks Q shift (2) Urinary tract infection: Qualifiers: Hematuria presence: without hematuria Urinary tract infection type: site unspecified Qualified Code(s): N39.0 - Urinary tract infection, site not specified Code(s): N39.0 - Urinary tract infection, site not specified Status: Acute Assessment and Plan: UA with suspicion UTI nitrate and leuks positive with 3+ bacteriuria, no previous UA in chart for comparison * 2g IV Rocephin pending sensitivities (3) Cirrhosis of liver: Code(s): K74.60 - Unspecified cirrhosis of liver Status: Acute Assessment and Plan: See above * T gilsoni 1.5 * Plan liver enzymes (4) Lactic acidosis: Code(s): E87.20 - Acidosis, unspecified Status: Acute Assessment and Plan: Patient's lactic acid 0.7 admission could be secondary to infection for the cirrhosis * Patient is lactic improved with IV fluid * Currently on normal saline 40 K mEq need to watch closely for fluid overload patient does have history of cirrhosis as well as CHF (5) Hypokalemia: Code(s): E87.6 - Hypokalemia Status: Acute Assessment and Plan: Patient's potassium was 2.1 POA no significant EKG changes * IV fluids 40meq in NS 100mg * added 40 daily PO BID * trend (6) Acute kidney injury: Code(s): N17.9 - Acute kidney failure, unspecified Status: Acute Assessment and Plan: Creatinine 1.41 POA Likely secondary dehydration * Continue IV fluids improved 1.28 (7) Diabetes mellitus: Code(s): E11.9 - Type 2 diabetes mellitus without complications Status: Acute Assessment and Plan: * Hold metformin * SSI * Diabetic * Accu-Cheks a.cIna HS * Hypoglycemic protocol (8) CHF (congestive heart failure): Code(s): I50.9 - Heart failure, unspecified Status: Acute Assessment and Plan: HX of CHF, mildly elevated BNP CXR showing pulmonary congestion patient with no respiratory complaints and 99% on room air likely not in exacerbation * Currently having to hold his torsemide and chlorthalidone due to soft BP will resume when BP tolerates * Monitor for fluid currently receiving IV fluids (9) Pancytopenia: Code(s): D61.818 - Other pancytopenia Status: Acute Assessment and Plan: Pancytopenia secondary to cirrhosis and metastatic prostate cancer * Low platelets after a fall below 15 pain need to transfuse FFP * No signs of bleeding * Will continue patient's Eliquis and ASA for PE DVT (10) Prostate cancer: Code(s): C61 - Malignant neoplasm of prostate Status: Acute Assessment and Plan: Of note See above #9 (11) Acute alteration in mental status: Code(s): R41.82 - Altered mental status, unspecified Status: Acute Assessment and Plan: Likely secondary to patient's rising ammonia levels and UTI * Lactulose t.i.d. * IV Rocephin for UTI 2 g * Neuro checks Q shift mental status has been improved (12) Dysphagia: Code(s): R13.10 - Dysphagia, unspecified Status: Deleted (13) Pulmonary embolism: Code(s): I26.99 - Other pulmonary embolism without acute cor pulmonale Status: Acute Assessment and Plan: Patient with recent history of PE and DVTs * Continued his Eliquis and ASA * Monitor for signs of bleeding specially due to patient's low platelets Plan Code status: DNR DVT prophylaxis: Eliquis Stress ulcer prophylaxis: Na PT/OT notes: Patient on [facility] wheelchair bound Disposition: Patient will continue admission to the medical unit further replacement of his potassium and treatment for altered mental status secondary to hepatic encephalopathy and UTI. Will continue with current treatment pending medical stability plan to return to [facility] facility when medically stable. Quality VTE Prophylaxis VTE prophylaxis: pharmacologic ordered -Patient's previous records reviewed on admission -ER notes reviewed in detail on admission -discussed all findings and current treatment plan with patient/Family/POA -Consultations reviewed for recommendations -Patient's disposition for safe discharge discussed with case manager Dictation performed by [employer] direct speech recognition software, therefore neurodiagnostic tech variants and typographical errors may occur. Hospitalist [facility] Advance Care Plan I have confirmed that the patient's Advanced Care Plan is present, code status is documented, or surrogate decision maker is listed in patient medical record.: Yes Medication Reconciliation I have utilized all available resources to obtain, update and review the patients current medications (includes all prescriptions, OTC, herbals, cannabis, and nutritional supplements).: Yes The patient is not eligible for med reconciliation; the patient is in a emergent medical situation where delaying treatment would jeopardize the patients health.: No
[2025-07-24 16:40] VITALS: BP 122/70; PULSE 72; RESP 16; TEMP 36.4; O2SAT 98
[2025-07-24] MEDS: cefTRIAXone 2 GM in SODIUM CHLORIDE 0.9% IV 100 ML 200 ML IVPB (17:45)
[2025-07-24] MEDS: POTASSIUM CHLORIDE 20 MEQ PACKET (FOR LIQUID) 40 MEQ PO (17:45)
[2025-07-24] MEDS: ATORVASTATIN 40 MG TABLET PO (17:45)
[2025-07-24 20:50] VITALS: PULSE 78
[2025-07-24] MEDS: HYDROcodone/acetaminophen (*CRX) 5-325 MG TABLET 1 TAB PO (20:50)
[2025-07-24] MEDS: APIXABAN 2.5 MG TABLET 5 MG BY MOUTH (20:51)
[2025-07-25] VITALS: BP 124/67; PULSE 74; RESP 18; TEMP 36.6; O2SAT 97
[2025-07-25] MEDS: KCL 40 MEQ/0.9% SOD CHL 1,000 ML 100 ML IV CONT (00:40)
[2025-07-25 07:14] LABS: Hematocrit 25.2 % (37.0-46.0); Hemoglobin 8.2 g/dL (12.4-15.3); Immature Platelet Fraction Pct 2.3 % (1.0-7.0); Mean Corpuscular HGB Conc 32.5 g/dL (32-36); Mean Corpuscular Hemoglobin 31.3 pg (27.0-31.0); Mean Corpuscular Volume 96.2 fL (78.0-102.0); Platelet Count Result 45 K/mm3 (150-420); Red Blood Count 2.62 M/mm3 (4.70-6.10); White Blood Count 2.9 K/mm3 (4.8-10.8)
[2025-07-25 07:22] LABS: Alanine Aminotransferase 32 U/L (6-50); Albumin Level 2.4 g/dL (3.5-5.1); Alkaline Phosphatase 109 U/L (38-126); Anion Gap 6 mmol/L (4-12); Aspartate Amino Transferase 58 U/L (17-59); Bilirubin,Total 1.2 mg/dL (0.2-1.3); Blood Urea Nitrogen 15 mg/dL (9-20); Calcium 7.7 mg/dL (8.4-10.2); Carbon Dioxide 27 mmol/L (22-30); Chloride 102 mmol/L (98-107); Estimated CRCL calculation 64 ml/min; Estimated Glomerular Filt Rate > 60; Glucose 98 mg/dL (65-110); Magnesium 1.9 mg/dL (1.6-2.3); Osmolality Calculated 280 mOsm/kg (285-295); Potassium 3.4 mmol/L (3.4-5.0); Sodium 135 mmol/L (137-145); Total Protein 5.4 g/dL (6.3-8.2)
[2025-07-25 07:23] LABS: Ammonia 28 umol/L (9-30)
[2025-07-25 07:38] LABS: Band Neutrophils Percent 0 % (0-6); Basophils Absolute Manual 0.02 K/mm3 (0-0.1); Basophils Percent Manual 1 % (0-1); Eosinophils Absolute Manual 0.08 K/mm3 (0.02-0.50); Eosinophils Percent Manual 3 % (1-6); Lymphocytes Absolute Manual 0.98 K/mm3 (1.1-4.5); Lymphocytes Percent Manual 34 % (18-44); Monocytes Absolute Manual 0.49 K/mm3 (0.1-0.90); Monocytes Percent Manual 17 % (3-9); Neutrophils Absolute Manual 1.30 K/mm3 (1.3-6.7); Neutrophils Percent Manual 45 % (46-73); Total Cells Counted 100
[2025-07-25 07:47] VITALS: BP 97/57; PULSE 63; RESP 16; TEMP 36.4; O2SAT 100
[2025-07-25] MEDS: LACTULOSE 20 GM/30 ML UDC PO ×2 (09:13→13:08)
[2025-07-25] MEDS: POTASSIUM CHLORIDE 20 MEQ PACKET (FOR LIQUID) 40 MEQ PO (09:14)
[2025-07-25] MEDS: CYANOCOBALAMIN 500 MCG TABLET 1000 MCG PO (09:14)
[2025-07-25 09:15] VITALS: PULSE 63
[2025-07-25] MEDS: ASPIRIN 81 MG ENTERIC TABLET PO (09:15)
[2025-07-25] MEDS: APIXABAN 2.5 MG TABLET 5 MG BY MOUTH (09:16)
[2025-07-25] MEDS: oxyBUTYnin CHLORIDE XL 5 MG TAB.ER.24 PO (09:16)
[2025-07-25] MEDS: TOLNAFTATE 1% POWDER 45 GM BTL 1 APPLIC TOPICAL (09:24)
--- NOTE | 2025-07-25 10:14 | P.DS_ITS ---
DS: Admitting Diagnosis Discharge Date 07/25/2025 Admitting Diagnosis Hepatic encephalopathy/ UTI/ hypokalemia INGRIS/ lactic acidosis/AMS DS: Discharge Diagnosis Discharge Diagnosis (1) Hepatic encephalopathy: Code(s): K76.82 - Hepatic encephalopathy Status: Acute (2) Urinary tract infection: Qualifiers: Hematuria presence: without hematuria Urinary tract infection type: site unspecified Qualified Code(s): N39.0 - Urinary tract infection, site not specified Code(s): N39.0 - Urinary tract infection, site not specified Status: Acute (3) Cirrhosis of liver: Code(s): K74.60 - Unspecified cirrhosis of liver Status: Acute (4) Lactic acidosis: Code(s): E87.20 - Acidosis, unspecified Status: Acute (5) Hypokalemia: Code(s): E87.6 - Hypokalemia Status: Acute (6) Acute kidney injury: Code(s): N17.9 - Acute kidney failure, unspecified Status: Acute (7) Diabetes mellitus: Code(s): E11.9 - Type 2 diabetes mellitus without complications Status: Acute (8) CHF (congestive heart failure): Code(s): I50.9 - Heart failure, unspecified Status: Acute (9) Pancytopenia: Code(s): D61.818 - Other pancytopenia Status: Acute (10) Prostate cancer: Code(s): C61 - Malignant neoplasm of prostate Status: Acute (11) Acute alteration in mental status: Code(s): R41.82 - Altered mental status, unspecified Status: Acute (12) Pulmonary embolism: Code(s): I26.99 - Other pulmonary embolism without acute cor pulmonale Status: Acute DS: Summary Hospital Course Reason for hospitalization: Hepatic encephalopathy/ UTI/ hypokalemia INGRIS/ lactic acidosis/AMS Hospital Course: Admission: Patient was a 80-year-old male who presented to the emergency department from assisted facility due to reports having altered mental status from his baseline with some lethargy. Patient has quite a significant past medical history with some to include previous CVA, cirrhosis of the liver with pancytopenia, previous metastatic prostate cancer, CHF, HTN, HLD, PE and DVT, diabetes, toxic encephalopathy, BPH with bladder spasm. In the ED: Initial findings emergency department showed pancytopenia WBC 3.7 hemoglobin of 8.3, platelets 59. Is off found to severe hypokalemia at 2.1, INGRIS with of 1.4, T bili 1.8 elevated AST 63. UA was suspicious for UTI nitrate and leukocyte positive with 3+ bacteriuria, CT head showed no acute intracranial abnormality and chest x-ray showing moderate pulmonary venous congestion. Patient with soft blood pressures started IV fluid resuscitation had lactic 4.7 . Patient was admitted to the unit received a dose IV Rocephin UTI and potassium replacement. Hospital course: Patient was evaluated the following day had ordered an ammonia level day prior which is at 47 give single dose of lactulose with no improvement to 67 in transitioned to lactulose t.i.d. likely secondary to his cirrhosis and could be contributing to his altered mental status. Upon my evaluation patient was alert and oriented able to follow commands and answer questions appropriately. I would increase his Rocephin to 2 g due to complicated UTI. Patient denied any chest pain shortness a breath, nausea vomiting, difficulty defecating reported he was chest severely tired. I continued patient on IV Rocephin pending UA as well as increase his lactulose to t.i.d. with increase ammonia levels to 67. Patient continued to have low potassium at 2.4 so I did include 40 of potassium b.i.d. oral well with his IV potassium. patient had overall improvement to symptoms was alert oriented x4 next day with ammonia levels back to 28 reported he felt back to his baseline and felt much better. Potassium replenished and labs were reviewed and stable patient tolerating oral intake and no difficulties with urination or defecation patient with no complaints at time of discharge symptoms had resolved plan to discharge on lactulose and oral antibiotic for UTI likely cause of patient's intermittent altered mental status. patient will discharge back to assisted facility via ambulance, patient acknowledged and agreed with discharge plan. Status at Discharge Functional status at discharge: wheelchair bound Overall status at discharge: patient is back to baseline Time Spent with Patient Time attestation: Total time spent providing and/or coordinating discharge services: Time spent: Greater than 30 minutes Exam Const: General: comfortable and no acute distress Other: pleasant chronically ill male wheelchair-bound HENMT: Mouth: Yes moist mucous membranes Eyes: General: appearance normal, both eyes and all related structures Sclera: sclerae normal Pupils: Equal, round and reactive pupils present Neck: Neck: supple and no JVD Resp: Effort & Inspection: normal respiratory effort Auscultation: clear to auscultation bilaterally Cardio: Rate: regular rate Rhythm: regular rhythm GI: GI Palp: Yes Soft to palpation Auscultation: normal bowel sounds Skin: General skin exam: normal color Wounds: wounds noted ( multiple healing wounds scabbed and deep tissue bruising) Neuro: Motor exam (neuro): 5/5 motor strength present throughout Sensory Exam: normal sensation Extrem: General: normal to inspection Psych: Mental Status: mental status grossly normal Affect: normal affect DS: Data Data Completed and Pending Labs on day of discharge: Labs from last 24 hours 07/25/25 07/25/25 07/24/25 07:30 06:52 20:50 WBC 2.9 L RBC 2.62 L Hgb 8.2 L Hct 25.2 L MCV 96.2 MCH 31.3 H MCHC 32.5 RDW 19.5 H Plt Count 45 L MPV 11.2 H Immature Gran % (Auto) Not Reportable Neut % (Auto) Not Reportable Lymph % (Auto) Not Reportable [place] % (Auto) Not Reportable Eos % (Auto) Not Reportable Baso % (Auto) Not Reportable Lymph # (Auto) Not Reportable [place] # (Auto) Not Reportable Eos # (Auto) Not Reportable Baso # (Auto) Not Reportable Abs Immat Gran (auto) Not Reportable Absolute Neuts (auto) Not Reportable Absolute Nucleated RBC Not Reportable Total Counted 100 Neutrophils % (Manual) 45 L Band Neutrophils % 0 Lymphocytes % (Manual) 34 Monocytes % (Manual) 17 H Eosinophils % (Manual) 3 Basophils % (Manual) 1 Nucleated RBC % Not Reportable Abs Neuts (Manual) 1.30 Abs Lymphs (Manual) 0.98 L Abs Monocytes (Manual) 0.49 Absolute Eos (Manual) 0.08 Abs Basophils (Manual) 0.02 Platelet Estimate Decreased % Immature Plt Fraction 2.3 Schistocytes Not Reportable Sodium 135 L Potassium 3.4 Chloride 102 Carbon Dioxide 27 Anion Gap 6 BUN 15 D Creatinine 1.01 Estim Creat Clear Calc 64 Estimated GFR > 60 Glucose 98 POC Capillary Glucose 111 H 123 H Calculated Osmolality 280 L Calcium 7.7 L Magnesium 1.9 Total Bilirubin 1.2 AST 58 ALT 32 Alkaline Phosphatase 109 Ammonia 28 Total Protein 5.4 L Albumin 2.4 L Free T4 Miscellaneous Test 07/24/25 07/24/25 07/24/25 17:03 12:14 09:43 WBC RBC Hgb Hct MCV MCH MCHC RDW Plt Count MPV Immature Gran % (Auto) Neut % (Auto) Lymph % (Auto) [place] % (Auto) Eos % (Auto) Baso % (Auto) Lymph # (Auto) [place] # (Auto) Eos # (Auto) Baso # (Auto) Abs Immat Gran (auto) Absolute Neuts (auto) Absolute Nucleated RBC Total Counted Neutrophils % (Manual) Band Neutrophils % Lymphocytes % (Manual) Monocytes % (Manual) Eosinophils % (Manual) Basophils % (Manual) Nucleated RBC % Abs Neuts (Manual) Abs Lymphs (Manual) Abs Monocytes (Manual) Absolute Eos (Manual) Abs Basophils (Manual) Platelet Estimate % Immature Plt Fraction Schistocytes Sodium Potassium Chloride Carbon Dioxide Anion Gap BUN Creatinine Estim Creat Clear Calc Estimated GFR Glucose POC Capillary Glucose 133 H 142 H Calculated Osmolality Calcium Magnesium Total Bilirubin AST ALT Alkaline Phosphatase Ammonia Total Protein Albumin Free T4 1.29 Miscellaneous Test 07/24/25 07/24/25 09:43 07:01 WBC RBC Hgb Hct MCV MCH MCHC RDW Plt Count MPV Immature Gran % (Auto) Neut % (Auto) Lymph % (Auto) [place] % (Auto) Eos % (Auto) Baso % (Auto) Lymph # (Auto) [place] # (Auto) Eos # (Auto) Baso # (Auto) Abs Immat Gran (auto) Absolute Neuts (auto) Absolute Nucleated RBC Total Counted Neutrophils % (Manual) Band Neutrophils % Lymphocytes % (Manual) Monocytes % (Manual) Eosinophils % (Manual) Basophils % (Manual) Nucleated RBC % Abs Neuts (Manual) Abs Lymphs (Manual) Abs Monocytes (Manual) Absolute Eos (Manual) Abs Basophils (Manual) Platelet Estimate % Immature Plt Fraction Schistocytes Sodium Potassium Chloride Carbon Dioxide Anion Gap BUN Creatinine Estim Creat Clear Calc Estimated GFR Glucose POC Capillary Glucose Calculated Osmolality Calcium Magnesium Total Bilirubin AST ALT Alkaline Phosphatase Ammonia 63 H Total Protein Albumin Free T4 Cancelled Miscellaneous Test Comment Imaging Radiologist's impression: EXAMINATION: XR chest 1V portable COMPARISON: No comparisons available. HISTORY: altered mental status FINDINGS: Moderate pulmonary venous congestion. Small basilar infiltrates. No pneumothorax. Moderate cardiomegaly. Mediastinal and hilar contours are within normal limits. Bony thorax no acute abnormality. Miscellaneous: Right pacemaker. Impression: CHF Discharge Plan Discharge Attending physician on discharge: Leo Weeks Consulting providers: Ananya Stoddard Discharging Clinician: Ananya Stoddard Anticipated Discharge Date/Time: 07/25/25 10:27 Patient Disposition: SNF Activity: as tolerated Diet: diabetic and renal Discharge Instructions: 1). hepatic encephalopathy secondary to cirrhosis * discharge to on lactulose continue daily * monitor for signs of bleeding * follow-up with your gas leak tester outpatient 2). UTI * I have prescribed oral antibiotic therapy please take as indicated even if feeling better complete I will continue to monitor your cultures and sensitivities if there is a need for change on your antibiotic therapy I will call in a new prescription. 3). low potassium * I have replenish her potassium while inpatient at the hospital I have discharge to on oral potassium supplement will need follow-up work in 1-2 weeks How can you care for yourself at home? ? Keep track of any new symptoms or changes in your symptoms. ? Rest until you feel better. ? Be safe with medicines. Take your medicines exactly as prescribed. Call your doctor if you think you are having a problem with your medicine. ? Do not drive after taking a prescription pain medicine. ? Ensure to follow-up with primary care physician as indicated and provide updated medication list provided to you at discharge. When should you call for help? Call 911 anytime you think you may need emergency care. For example, call if: ? You passed out (lost consciousness). Call your doctor now or seek immediate medical care if: ? You have new symptoms like fever, difficulty breathing, Chest pain, vomiting, or rash. ? You have new or different pain. ? You are confused and are having trouble thinking clearly. ? Your symptoms are getting worse. Watch closely for changes in your health, and be sure to contact your doctor if: ? You do not get better as expected. Patient Instructions: Apixaban (By mouth), Heart Failure (DC), Urinary Tract Infection in Men (DC), Hypokalemia (DC), Hepatic Encephalopathy (DC) Patient Language: Occitan Stand Alone Forms: General Discharge Information, Long-Term Discharge Follow-up/Referrals: Muriel,MD Mahesh [Primary Care Provider, Unknown] - 2 weeks Discharge Medications: New potassium chloride 20 mEq Packet 40 meq PO BID Qty: 30 0RF lactulose 10 gram/15 mL Solution 20 g PO DAILY Qty: 473 0RF Continued carvedilol 3.125 mg tablet 3.125 mg PO Q12H Rx Instructions: must administer with a meal/food Eliquis 5 mg tablet 5 mg PO BID Foltrate 0.5-1 mg tablet 1 tablet PO DAILY isosorbide mononitrate 60 mg tablet extended release 24 hr 90 mg PO QAM oxybutynin chloride 5 mg tablet extended release 24hr 5 mg PO DAILY atorvastatin 40 mg tablet 40 mg PO QPM metformin 500 mg Tablet 2,000 mg PO DAILY chlorthalidone 50 mg Tablet 50 mg PO 3XW Patient Comments: Give every Sunday, Sunday, Sunday Rx Instructions: Take every Sunday, Sunday, Sunday aspirin 81 mg Tablet 81 mg PO DAILY mecobalamin (vitamin B12) 500 mcg Tablet,Chewable 1,000 mcg PO DAILY Held torsemide 40 mg tablet 40 mg PO QAM Hold Instructions: Resume on 07/27/25. Discontinued carvedilol 6.25 mg tablet 6.25 mg PO BID potassium chloride 20 mEq tablet,ER particles/crystals 40 meq PO DAILY Date of admission: 07/24/25 16:11 Primary Care Provider: MurielMahesh Admitting Provider: Leo Weeks Attending physician on admission: Leo Weeks Condition: Improved Quality VTE Prophylaxis VTE prophylaxis: pharmacologic ordered -Patient's previous records reviewed on admission -ER notes reviewed in detail on admission -discussed all findings and current treatment plan with patient/Family/POA -Consultations reviewed for recommendations -Patient's disposition for safe discharge discussed with telephonic case manager Dictation performed by [employer] direct speech recognition software, therefore system engineer variants and typographical errors may occur. Hospitalist MIPS Heart Failure (Exclusion) Patient has history of Heart Transplant or Left Ventricular Assistive Device?: No IF YES, STOP HERE Heart Failure (Qualifier) Patient has current or prior documentation of LVEF less than or equal to 40%, or mod/servere depressed LVSF?: No IF NO, STOP HERE
--- NOTE | 2025-07-25 13:31 | PC.NURSE ---
Report called to Bry at [facility]. Nurse voiced understanding of report. Patient cleaned up, dressed and ready to be picked up by [facility] staff.
--- NOTE | 2025-07-25 15:10 | PC.NURSE ---
[facility] staff arrived to chart picker patient. Jaren lift used to place patient in w/c for transport to [facility]. Patient left unit and hospital grounds in w/c, accompanied by [facility] staff.
--- NOTE | 2025-07-28 08:38 | PC.NURSE ---
Discharge call back, returned to assisted, no questions from staff reagarding mediations or care received.
== END 2025-07-25 15:10 | DRG 442 ==
LOC: CHSED 13:43 → CHS2ND 14:40
PROVIDERS: Nurse Practitioner Family; Admitting Provider Internal Medicine; Emergency Provider Emergency Medicine; PCP Hospitalist; Visit Provider Internal Medicine
DX: K76.82 Hepatic encephalopathy (principal); C79.9 Secondary malignant neoplasm of unspecified site; D61.818 Other pancytopenia; N39.0 Urinary tract infection, site not specified; N17.9 Acute kidney failure, unspecified; K74.60 Unspecified cirrhosis of liver; E78.5 Hyperlipidemia, unspecified; E87.6 Hypokalemia; E11.9 Type 2 diabetes mellitus without complications; I11.0 Hypertensive heart disease with heart failure; I50.9 Heart failure, unspecified; N40.0 Benign prostatic hyperplasia without lower urinary tract symptoms; Z86.73 Personal history of transient ischemic attack (TIA), and cerebral infarction without residual deficits; Z85.46 Personal history of malignant neoplasm of prostate; Z86.718 Personal history of other venous thrombosis and embolism; Z86.711 Personal history of pulmonary embolism; Z99.3 Dependence on wheelchair
CPT/HCPCS: 36415; 70450; 71045; 80053; 80074; 80076; 80307; 81001; 82140; 82248; 82948; 83605; 83735; 83880; 84132; 84439; 84443; 84484; 85025; 85055; 85610; 85730; 87040; 87086; 87186; 87637; 93005; 96365; 96366; 96367; 99285; A9270; G0378; J0696; J3480; J7030